=== PATIENT | female | born 1965 | race Caucasian/White ===

== ENCOUNTER 2020-01-13 06:26 | Day surgery (SDC) | payer MEDICARE ==
[2020-01-10 11:19] VITALS: BMI 38.5
[~2020-01-13 06:26] MED LIST: ACETAMINOPHEN TAB 500 MG TAB PO ONE; DEXAMETHASONE SOD PHOSPHATE 10 MG/ML 1 ML VIAL IV ONE; HEPARIN SODIUM,PORCINE 5,000 UNIT/ML 1 ML VIAL SQ ONE; HYDROmorphone 0.5 MG/0.5 ML SYRINGE IVP PRN; LACTATED RINGERS 1,000 ML IV SCH; LIDOCAINE 1% (10MG/ML) FOR IV START INTRADERMA PRN; ONDANSETRON 4 MG/2 ML VIAL IVP ONE
[2020-01-13] MEDS ORDERED: ACETAMINOPHEN TAB 500 MG TAB ONE (06:59)
[2020-01-13] MEDS ORDERED: HEPARIN SODIUM,PORCINE 5,000 UNIT/ML 1 ML VIAL ONE (07:00)
[2020-01-13] MEDS ORDERED: LIDOCAINE 1% (10MG/ML) FOR IV START INTRADERMA ONE (07:03)
[2020-01-13] MEDS ORDERED: SUCCINYLCHOLINE CHLORIDE 100 MG/5 ML SYR IV ONE (07:58)
[2020-01-13] MEDS ORDERED: fentaNYL (PF) 50 MCG/ML 2 ML AMP ONE (07:58)
[2020-01-13] MEDS ORDERED: PROPOFOL 10 MG/ML 20 ML VIAL IV ONE (07:58)
[2020-01-13] MEDS ORDERED: MIDAZOLAM 2 MG/2 ML VIAL ONE (07:58)
[2020-01-13] MEDS ORDERED: LIDOCAINE 1% INJ 10MG/ML (20 ML MDV) ONE (07:58)
--- NOTE | 2020-01-13 08:00 | P.HPADDEND ---
H&P Addendum H&P Addendum Date: 01/13/20 Please refer to recent H&P from the office. I was contacted last week that nephrology has seen the patient and wanted us to proceed with peritoneal dialysis catheter insertion as soon as possible. Patient remains relatively asymptomatic. No changes to the recent history and physical. We'll proceed wi th peritoneal dialysis catheter insertion. Risks reviewed once again. Patient and family understand and wish to proceed.
[2020-01-13] MEDS ORDERED: BUPIVACAINE (PF) 0.25% 30 ML VIAL SQ ONE (08:21)
[2020-01-13] MEDS ORDERED: NALOXONE 0.4 MG/ML 1 ML VIAL IV PRN (09:07)
[2020-01-13] MEDS ORDERED: HYDROcodone/APAP 5-325MG 1 EACH TAB PO PRN (09:07)
--- NOTE | 2020-01-13 09:09 | P.OP ---
Date of Procedure: 01/13/20 Procedure(s) Performed: PREOPERATIVE DIAGNOSIS: Renal failure POSTOPERATIVE DIAGNOSIS: Same PROCEDURE: Peritoneal dialysis catheter insertion SURGEON: Lizbet EBL: Minimal ANESTHESIA: Sedation plus local COMPLICATIONS: None OPERATIVE PROCEDURE: The patient was placed in the operative table in the supine position. His abdomen was prepped and draped in usual sterile fashion. A small vertical incision was made in the right periumbilical location. Dissection down through the subcutaneous tissues took place using electrocautery. The anterior rectus was divided vertically using the scalpel. The rectus was bluntly. The posterior rectus was visualized. An 0 Vicryl pursestring was placed. A small opening in the posterior rectus fascia and peritoneum took place using a Metzenbaum scissors. There were no adhesions to the suture that was placed. The pigtail catheter was advanced into the pelvis over a stylette. No resistance was met. The inner cuff was secured to the fascia using the 0 Vicryl pursestring that was placed. The catheter was tunneled to an exit site in the right lateral lower quadrant. The catheter was connected to the 1 L bag of saline and approximated 800 mL of saline was easily introduced into the peritoneal cavity. The fluid was then allowed to evacuate. The majority of the fluid was returned. The anterior rectus fascia was then reapproximated using a running 0 Vicryl stitch. The subcutaneous tissues reprepped using 3-0 Vicryl sutures and the skin using 4-0 Monocryl sutures. The outpatient dialysis adapter was applied to the end of the catheter. A sterile dressings then applied after Steri-Strips were placed over the incision. DISPOSITION: Stable to recovery room
[2020-01-13 09:23] VITALS: TEMP 97.1
[2020-01-13 10:30] VITALS: RESP 20
[2020-01-13 11:41] VITALS: BP 117/78; PULSE 95
== END 2020-01-13 11:30 | disposition home or self-care (01) ==
LOC: OR 06:26 → EEVIPCON 07:45 → OR 11:30
PROVIDERS: ATTEND Surgery
DX: I12.0 Hypertensive chronic kidney disease with stage 5 chronic kidney disease or end stage renal disease (principal); N18.6 End stage renal disease; F81.9 Developmental disorder of scholastic skills, unspecified; E21.3 Hyperparathyroidism, unspecified; D64.9 Anemia, unspecified; E78.5 Hyperlipidemia, unspecified; E07.9 Disorder of thyroid, unspecified; M10.9 Gout, unspecified; E66.9 Obesity, unspecified; Z68.38 Body mass index [BMI] 38.0-38.9, adult; Z79.899 Other long term (current) drug therapy; Z79.890 Hormone replacement therapy; Z98.890 Other specified postprocedural states; Z83.49 Family history of other endocrine, nutritional and metabolic diseases; Z83.438 Family history of other disorder of lipoprotein metabolism and other lipidemia; Z81.8 Family history of other mental and behavioral disorders; Z82.49 Family history of ischemic heart disease and other diseases of the circulatory system; Z82.62 Family history of osteoporosis; Z84.1 Family history of disorders of kidney and ureter; Z80.0 Family history of malignant neoplasm of digestive organs
CPT/HCPCS: 49421; C1752; J2250; J1644; J1100; J0690; J2405; J2001; J3010; J0330; J2704

== ENCOUNTER → 2020-09-05 | Outpatient (CLI) | payer MEDICARE ==
[2020-09-05 14:54] LABS: Basophils # (A) 0.1 k/uL (0-0.2); Basophils % (A) 1 %; Eosinophils # (A) 0.4 k/uL (0-0.7); Eosinophils % (A) 3 %; HGB 10.7 gm/dL (11.4-16.0); Lymphocytes # (A) 1.4 k/uL (1.0-4.8); Lymphocytes % (A) 13 %; MCH 31.3 pg (25.0-35.0); MCHC 30.7 g/dL (31.0-37.0); MCV 102.1 fL (80.0-100.0); Macrocytosis Slight; Mean Platelet Volume 7.6; Monocytes # (A) 0.6 k/uL (0-1.0); Monocytes % (A) 5 %; Neutrophils # (A) 8.2 k/uL (1.3-7.7); Neutrophils % (A) 75 %; Platelet Count 391 k/uL (150-450); RBC 3.43 m/uL (3.80-5.40); RDW 14.4 % (11.5-15.5); WBC 10.9 k/uL (3.8-10.6)
[2020-09-05 14:59] LABS: Potassium 4.5 mmol/L (3.5-5.1)
[2020-09-05 15:00] LABS: INR 0.9 (<1.2); Prothrombin Time 9.7 sec (9.0-12.0)
== END | disposition home or self-care (01) ==
LOC: LABWHC1 13:38
PROVIDERS: ATTEND Orthopaedic Surgery
DX: Z01.812 Encounter for preprocedural laboratory examination (principal); M17.12 Unilateral primary osteoarthritis, left knee; R94.31 Abnormal electrocardiogram [ECG] [EKG]
CPT/HCPCS: 80051; 85025; 85610; 87070; 93005

== ENCOUNTER 2020-09-25 08:33 | Inpatient (IN) | payer MEDICARE ==
[2020-09-13 09:49] VITALS: BMI 37.0
--- NOTE | 2020-09-24 09:25 | HP ---
HISTORY AND PHYSICAL CHIEF COMPLAINT: Left knee pain. HISTORY OF PRESENT ILLNESS: The patient is a 55-year-old female on disability, who presents with progressive left knee pain, worsening over the past year. She notes anterior and medial pain, worse with weightbearing activities. She notes it significantly limits her function and activities. She has had previous injections in addition to use of Voltaren gel without much relief. She notes it is significantly limits her. PAST MEDICAL HISTORY: Significant for gout, hypercholesterolemia, hypertension, hypothyroidism, and in addition to renal disease currently on peritoneal dialysis. PAST SURGICAL HISTORY: Negative. CURRENT MEDICATIONS: 1. Allopurinol. 2. Iron. 3. Lasix. 4. Levothyroxine. 5. Sevelamer. 6. Simvastatin. ALLERGIES: She has allergies to LISINOPRIL. FAMILY HISTORY: Negative. SOCIAL HISTORY: Negative for current tobacco or alcohol use. REVIEW OF SYSTEMS: Sixteen-point review of systems otherwise reviewed and is noncontributory. PHYSICAL EXAMINATION: On examination, patient is approximately 5 feet tall, 185 pounds of endomorphic habitus. HEENT exam is nonfocal. Neck is supple. She has painless passive motion of her left hip. Straight leg raise is negative. Active motion left knee -12 to 120 degrees of flexion. She has a moderate effusion. She is tender about the medial joint line. Collaterals are stable, Farrah is negative, Odalys's is equivocal. She has genu varum alignment. Her distal neurovascular exam appears intact in the left lower extremity. Weightbearing notch, lateral Merchant views of left knee obtained in the office show severe medial and patellofemoral compartment narrowing with subchondral sclerosis and [id number] changes. IMPRESSION: 1. Left knee severe medial and patellofemoral compartment osteoarthrosis. 2. End-stage renal disease on peritoneal dialysis. 3. History of gout. 4. Hypertension. RECOMMENDATIONS: I talked to the patient at length regarding her condition and treatment options. At this point, she is quite limited because of pain related to her osteoarthrosis despite previous conservative measures. After thorough discussion of her options, she opts to proceed with surgery. We will plan to proceed with left total knee arthroplasty. She did undergo preoperative clearance by her coordinate measuring equipment operator. MMODL / IJN: [id number] /
[~2020-09-25 08:33] MED LIST changes: -ACETAMINOPHEN TAB 500 MG TAB PO ONE; +ACETAMINOPHEN TAB 500 MG TAB PO PRN; -DEXAMETHASONE SOD PHOSPHATE 10 MG/ML 1 ML VIAL IV ONE; +DEXAMETHASONE SOD PHOSPHATE 4 MG/ML 1 ML VIAL IV ONE; -HEPARIN SODIUM,PORCINE 5,000 UNIT/ML 1 ML VIAL SQ ONE; -HYDROmorphone 0.5 MG/0.5 ML SYRINGE IVP PRN; -LACTATED RINGERS 1,000 ML IV SCH; -LIDOCAINE 1% (10MG/ML) FOR IV START INTRADERMA PRN; +MELOXICAM 7.5 MG TAB PO PRN; +MIDAZOLAM 2 MG/2 ML VIAL IV PRN; +SCOPOLAMINE 1.5MG/72HR PATCH TRANSDERM ONE; +TRANEXAMIC ACID 1,000 MG in SODIUM CHLORIDE 0.9% 100 ML IVPB PRN
[2020-09-25] MEDS ORDERED: LIDOCAINE 1% (10MG/ML) FOR IV START INTRADERMA ONE (09:42)
[2020-09-25] MEDS ORDERED: SODIUM CHLORIDE 0.9% 1,000 ML IV ONE (09:43)
[2020-09-25] MEDS ORDERED: MIDAZOLAM 2 MG/2 ML VIAL IV ONE (09:57)
[2020-09-25] MEDS ORDERED: fentaNYL (PF) 50 MCG/ML 2 ML AMP IV ONE (09:57)
[2020-09-25 10:33] LABS: Calcium 9.8 mg/dL (8.4-10.2); Potassium 4.7 mmol/L (3.5-5.1)
[2020-09-25] MEDS ORDERED: GLYCOPYRROLATE 0.2 MG/ML 2 ML VIAL ONE (10:33)
[2020-09-25] MEDS ORDERED: diphenhydrAMINE 50 MG/ML 1 ML VIAL ONE (10:33)
[2020-09-25] MEDS ORDERED: SODIUM CHLORIDE 0.9% 100 ML BAG ONE (10:33)
[2020-09-25] MEDS ORDERED: MIDAZOLAM 2 MG/2 ML VIAL ONE (10:33)
[2020-09-25] MEDS ORDERED: PROPOFOL 10 MG/ML 20 ML VIAL IV ONE (10:33)
[2020-09-25] MEDS ORDERED: TRANEXAMIC ACID 1,000 MG/10 ML VIAL ONE (10:33)
[2020-09-25] MEDS ORDERED: fentaNYL (PF) 50 MCG/ML 2 ML AMP ONE (10:33)
[2020-09-25] MEDS ORDERED: ROPIVACAINE 5 MG/ML 30 ML VIAL ONE (10:33)
[2020-09-25] MEDS ORDERED: NALOXONE 0.4 MG/ML 1 ML VIAL IV PRN (12:15)
--- NOTE | 2020-09-25 12:42 | P.OP ---
Date of Procedure: 09/25/20 Preoperative Diagnosis: Left knee severe tricompartmental osteoarthrosis Postoperative Diagnosis: Same Procedure(s) Performed: Left total knee arthroplastycementedposterior stabilized Implants: Depuy Attune size 4 cemented femoral component, size 3 cemented tibial component, 9 mm articular surface, 32 mm cemented patellar component. This is a posterior stabilized implant. Anesthesia: regional, spinal Surgeon: Vega Sewell Soap Worker #1: Brandon Fernandez Estimated Blood Loss (ml): 50 Pathology: other Condition: stable Disposition: PACU Indications for Procedure: The patient's a 55-year-old female who presents with progressive left knee pain secondary to osteoarthrosis despite attempted conservative measures. A discussion of the risks and benefits of operative intervention versus continued conservative measures was made with patient and her family. They opted to proceed with surgery. Operative risks to include infection, neurovascular injury, development of blood clots, possible component loosening/failure and need for subsequent procedures was discussed. Informed consent was obtained. Operative Findings: As below Description of Procedure: The patient was brought to the operating room, and after induction of spinal anesthesia the left lower extremity was prepped and draped in a normal fashion. The tourniquet was inflated to 270 mm marker. A longitudinal incision extending 3 finger breaths above the superior pole of patella extending to the medial aspect the tibial tubercle was then made. The skin and subcutaneous tissues were divided sharply. Electrocautery was used for hemostasis. A medial parapatellar arthrotomy was performed. The medial soft tissues to include the superficial and deep portions of the medial collateral ligament were elevated subperiosteally. The patella was everted. A portion of the retropatellar fat pad was excised sharply. The anterior cruciate ligament was sacrificed. Blunt retractors were placed. A starting hole was made in the distal femur 1 cm anterior to the posterior cruciate ligament origin. An intramedullary femoral guide was then inserted planning on 5 valgus distal cut with 9 mm distal rese ction. The cutting block was pinned in place. The distal cut was then made. The posterior referencing sizing guide was utilized. I felt size 4 was most appropriate. 3 of external rotation was built into the system and verified off the trans-epicondylar axis and the posterior condyles. The cutting block was pinned in place. The anterior, posterior, and chamfer cuts then made. Bone fragments were removed. The intercondylar guide was placed and the notch cut was made with a sagittal saw. The bone block was removed in one fragment. The trial component was then placed. There is good anterior to posterior and medial to lateral fit. The distal peg holes were drilled. The trial component was removed. Attention was then paid towards preparing the proximal femur. An extra medullary guide was utilized in line with the tibial shaft and second metatarsal distally. I planned on 2 mm resection from the medial compartment. The cutting block was pinned in place. The proximal tibial cut was then made. The bone was removed in one fragment. The remnants of the medial and lateral menisci were excised at the capsular junction with electrocautery. The tibia sized most appropriately at size 3. The trial femoral and tibial components were placed along with a 9 mm articular surface. I was able to obtain full flexion and extension with internal and external rotation. After several flexion and extension cycles, the tibial rotation was marked with electrocautery line with the medial one third of the tibial tubercle. Attention was then paid towards preparing the patella. A patella reamer was utilized taking stem to 14 mm of bone stock. A good flush cut was made. The patella sized most appropriately 32 mm. The peg holes were drilled. The trial components placed. I had good patellofemoral tracking with no hands technique. The trial components were then removed. The tibia was prepared in the appropriate rotation with appropriate drill and keel punch. The posterior osteophytes were removed with a curved osteotome. The flexion and extension gaps were checked and felt to be symmetric at 9 mm. A trial components were then removed. The posterior soft tissues were injected with ropivacaine. The bony surfaces were prepared with pulsatile lavage and dried. The tibial component was then cemented place was fully seated. Excess cement was removed. The femoral component cemented place and was fully seated. Excess cement was removed. The trial 9 mm articular surface was placed and the knee was put in full extension. The patella component was cemented place. After the cement had sufficiently hardened, the knee was again taken through a range of motion. Again I was able to obtain full flexion and extension with varus and valgus stress. The trial 9 mm articular surface was removed and the final one inserted. This was fully seated. Care was taken to avoid any soft tissue interposition. Pulsatile lavage was again utilized. The medial parapatellar arthrotomy was closed with #2 Ethibond suture. The tourniquet was deflated with approximately 70 minutes total tourniquet time. Final hemostasis was obtained with the cautery. There was minimal bleeding therefore a deep drain was not placed. The subcutaneous tissues were reapproximated with interrupted 2-0 Vicryl sutures. The skin was reapproximated with 3-0 subcuticular strata fix suture. Skin tape and adhesive was applied. A sterile dressing was applied. The patient was awoken from sedation and transferred to recovery room in good condition. Blood loss was estimated at 50 mL. No complications were incurred. Sponge and needle counts were correct at the end of the case. Brandon DRUMMOND assisted during the major components of this case to include exposure, bone resection, implantation, and closure.
[2020-09-25] MEDS ORDERED: diphenhydrAMINE 50 MG/ML 1 ML VIAL IVP ONE (13:00)
[2020-09-25] MEDS ORDERED: ROPIVACAINE 0.2%-NS ON-Q PUMP 2 MG/ML EACH MISCELLANE ONE ×2 (13:04→13:05)
[2020-09-25] MEDS: HYDROmorphone 0.5 MG/0.5 ML SYRINGE IVP PRN ×3 (13:04→14:30)
[2020-09-25] MEDS ORDERED: ROPIVACAINE 0.2%-NS ON-Q PUMP 1,090 MG, EMPTY PAIN BALL 1 EACH MISCELLANE PRN (13:20)
--- NOTE | 2020-09-25 13:37 | XR ---
EXAMINATION TYPE: XR knee limited LT DATE OF EXAM: 09/25/2020 COMPARISON: NONE TECHNIQUE: Two views submitted HISTORY: Post op FINDINGS: There is a prosthetic knee in near anatomic alignment. There is soft tissue edema and emphysema. IMPRESSION: 1. Postoperative change. Appears in near-anatomic alignment
--- NOTE | 2020-09-25 14:22 | P.ANPRN ---
Procedure Note - Anesthesia - Nerve Block Performed Left Adductor Canal Infusion Time Out Performed: Yes (957) Date of Procedure: 09/25/20 Procedure Start Time: 09:58 Procedure Stop Time: 10:05 Location of Patient: PreOp Indication: Acute Post-Operative Pain, Requested by Surgeon Specifically requested for management of pain by DrGlenys: Vega Sewell Sedation Type: Sedate with meaningful contact maintained Preparation: Sterile Prep Position: Supine Catheter Depth at Skin (cm): 8 Catheter: Indwelling Needle Types: Pajunk Needle Gauge: 21 Ultrasound used to visualize needle placement: Yes Ultrasound used to observe medication spread: Yes Injectate: 0.5% Ropivacaine (see comment for volume) (20cc) Blood Aspirated: No Pain Paresthesia on Injection Noted: No Resistance on Injection: Normal Image Stored and Saved: Yes Events: Uneventful and Well Tolerated Left iPack Single Time Out Performed: Yes (957) Date of Procedure: 09/25/20 Procedure Start Time: 10:06 Procedure Stop Time: 10:10 Location of Patient: PreOp Indication: Acute Post-Operative Pain, Requested by Surgeon Specifically requested for management of pain by DrGlenys: Vega Sewell Sedation Type: Sedate with meaningful contact maintained Preparation: Sterile Prep Position: Supine Catheter Depth at Skin (cm): 8 Catheter: Indwelling Needle Types: Pajunk Needle Gauge: 21 Ultrasound used to visualize needle placement: Yes Ultrasound used to observe medication spread: Yes Injectate: 0.5% Ropivacaine (see comment for volume) (20cc) Blood Aspirated: No Pain Paresthesia on Injection Noted: No Resistance on Injection: Normal Image Stored and Saved: Yes Events: Uneventful and Well Tolerated
[2020-09-25] MEDS: HYDROcodone/APAP 7.5-325MG 1 EACH TAB PO PRN (15:34)
[2020-09-25] MEDS: LACTATED RINGERS 1,000 ML IV SCH (18:45)
[2020-09-25] MEDS: SENNOSIDES-DOCUSATE SODIUM 1 EACH TAB PO SCH (20:02)
[2020-09-25] MEDS: DIALYSIS (PERIT 1.5%) 2,000 ML 30 G/2,000 ML BAG INTRAPERIT SCH ×2 (20:33→23:52)
[2020-09-26] MEDS: DIALYSIS (PERIT 1.5%) 2,000 ML 30 G/2,000 ML BAG INTRAPERIT SCH ×4 (00:01→20:29)
[2020-09-26] MEDS: LACTATED RINGERS 1,000 ML IV SCH (01:47)
[2020-09-26 07:07] LABS: Basophils % (A) 0 %; Eosinophils % (A) 0 %; HCT 29.4 % (34.0-46.0); HGB 9.8 gm/dL (11.4-16.0); Lymphocytes # (A) 0.8 k/uL (1.0-4.8); Lymphocytes % (A) 6 %; MCH 34.2 pg (25.0-35.0); MCHC 33.3 g/dL (31.0-37.0); MCV 102.9 fL (80.0-100.0); Macrocytosis Slight; Mean Platelet Volume 7.9; Monocytes # (A) 0.8 k/uL (0-1.0); Monocytes % (A) 5 %; Neutrophils # (A) 13.1 k/uL (1.3-7.7); Neutrophils % (A) 88 %; Platelet Count 389 k/uL (150-450); RBC 2.86 m/uL (3.80-5.40); RDW 14.6 % (11.5-15.5); WBC 14.9 k/uL (3.8-10.6)
--- NOTE | 2020-09-26 07:37 | P.PN ---
Progress Note - Text Progress Note Date: 09/26/20 (044) Anesthesiology Postop day 1 status post total knee arthroplasty with adductor canal catheter. Patient doing well. Pain is tolerable per patient. Gross strength intact in lower extremity. Afebrile. Denies alterations in sensorium. Catheter site intact. Heart regular rate Lungs nonlabored Abdomen nondistended Assessment: Postop day 1 status post total knee arthroplasty with adductor canal catheter Plan: All questions answered. Maintain catheter 2 more days with patient removal at home. Instructions were given at discharge.
[2020-09-26] MEDS: HYDROcodone/APAP 7.5-325MG 1 EACH TAB PO PRN ×2 (08:36→23:01)
[2020-09-26] MEDS: RIVAROXABAN 10 MG TAB PO SCH (08:37)
--- NOTE | 2020-09-26 12:01 | P.PN ---
Subjective Progress Note Date: 09/26/20 Principal diagnosis: Left knee osteoarthritis Upon entering room sporting, patient was lying in chair with legs elevated. Patient says she is in some pain right over the left knee were the incision was made. However, she says she is doing pretty good. When asked, patient says physical therapy was up with her this morning. She points to the walker when I asked her if she uses a walker. She said she did not go into the hallway or up and down the stairs today with physical therapy. She said she did get somebody has been passing gas. Patient denies any shortness of breath, chest pain, fever, nausea, vomiting, vision changes. Objective - Vital Signs Vital signs: Vital Signs Temp 98.8 F 09/26/20 08:00 Pulse 121 H 09/26/20 08:00 Resp 20 09/26/20 08:00 BP 129/75 09/26/20 08:00 Pulse Ox 95 09/26/20 08:00 Intake & Output 09/25/20 09/26/20 09/26/20 18:59 06:59 18:59 Intake Total 1970 Output Total 50 Balance 1920 Weight 88.8 kg Intake: IV 950 Intake, IV Titration 1020 Amount ceFAZolin 2 gm In Sodium 1020 Chloride 0.9% 50 ml @ 100 mls/hr IVPB ONCE PRN Rx# :[id number] Output: Estimated Blood Loss 50 Other: Voiding Method CAPD CAPD # Voids 1 # Bowel Movements 1 - Exam : Incision is clean, dry, and intact. The exofin fusion tape is in good condition. There is minimal soft tissue swelling and ecchymosis surrounding the medial and lateral aspects of the incision. Calf is soft, no tenderness with palpation. Plantar flexion, dorsiflexion, EHL, FHL are intact. Sensory exam to light touch throughout the extremity is intact, dorsal pedis pulses 2+. - Labs CBC & Chem 7: 09/26/20 05:43 09/25/20 09:42 Labs: Abnormal Lab Results - Last 24 Hours (Table) 09/26/20 Range/Units 05:43 WBC 14.9 H (3.8-10.6) k/uL RBC 2.86 L (3.80-5.40) m/uL Hgb 9.8 L (11.4-16.0) gm/dL Hct 29.4 L (34.0-46.0) % MCV 102.9 H (80.0-100.0) fL Neutrophils # 13.1 H (1.3-7.7) k/uL Lymphocytes # 0.8 L (1.0-4.8) k/uL Assessment and Plan Assessment: Left knee osteoarthritis Plan: 1. Left knee osteoarthritis - left total knee arthroplasty performed yesterday, 09/25/2020. Patient stable at this time. 2. Pain management - stable at this time. Continue Pierre 3. GI prophylaxis/DVT prophylaxis - continue senna while in hospital. Continue Xarelto while in hospital. 4. Encourage incentive spirometer use 5. PT/OT - up and out of bed 4 times a day. Ambulate with walker and assistance. Goal to use the stairs tomorrow morning 6. Discharge planning - we will discuss with patient's mom later today when she gets here about potential for patient going to subacute rehab for initial phase of recovery. Time with Patient: Less than 30
--- NOTE | 2020-09-26 13:42 | P.NPCON ---
History of Present Illness - Reason for Consult end stage renal disease - History of Present Illness Reason for consultation: End-stage renal disease History of present illness: Patient is a 55-year-old female seen in renal consultation for end-stage renal disease. She is maintained on peritoneal dialysis. Patient has history of arthritis and underwent left knee arthroplasty yesterday. Currently sitting up in chair. Denies chest pain or shortness of breath. No issues with peritoneal dialysis. No vomiting or diarrhea. Blood pressure stable. Oral intake is good. No fever or chills. Hemodynamically stable. Vital signs are stable. General: The patient appeared well nourished and normally developed. HEENT: Head exam is unremarkable. Neck is without jugular venous distension. LUNGS: Breath sounds decreased. HEART: Rate and Rhythm are regular. ABDOMEN: Soft, no distention noted. EXTREMITITES: No edema. Past Medical History Past Medical History: Hyperlipidemia, Renal Disease, Thyroid Disorder Additional Past Medical History / Comment(s): developmentally delayed, nightly peritoneal dialysis, has deep palate, some speech issues, swelling legs and ankles, hx of fx rt leg, History of Any Multi-Drug Resistant Organisms: None Reported Additional Past Surgical History / Comment(s): septoplasty, tubes in ear, oral surgery Past Anesthesia/Blood Transfusion Reactions: Family History of Problems w/ Anesthesia Additional Past Anesthesia/Blood Transfusion Reaction / Comment(s): mom-ponv Additional Psychological History / Comment(s): mother reports Isis as having high function disabilty with limited understanding of presented information - mom Yamel is legal guardian Smoking Status: Never smoker Past Alcohol Use History: None Reported Past Drug Use History: None Reported - Past Family History Father Family Medical History: Cancer Medications and Allergies Home Medications Medication Instructions Recorded Confirmed Type Levothyroxine Sodium [Synthroid] 112 mcg PO DAILY 01/10/20 09/25/20 History Sevelamer Carbonate 800 mg PO BID-W/MEALS 01/10/20 09/25/20 History Simvastatin [Zocor] 20 mg PO HS 01/10/20 09/25/20 History Ferrous Sulfate [Feosol] 325 mg PO DAILY 09/13/20 09/25/20 History Furosemide [Lasix] 80 mg PO BID 09/13/20 09/25/20 History Potassium Chloride [Klor-Con 10] 10 meq PO DAILY 09/13/20 09/25/20 History Allergies Allergy/AdvReac Type Severity Reaction Status Date / Time lisinopril Allergy Unknown Verified 09/25/20 09:01 Physical Exam Vitals: Vital Signs Temp Pulse Pulse Resp BP BP Pulse Ox 09/26/20 08:00 98.8 F 121 H 20 129/75 95 09/26/20 02:29 98.4 F 110 H 18 120/76 95 09/25/20 20:34 97.6 F 116 H 19 108/76 92 L 09/25/20 19:17 97.6 F 116 H 19 108/76 92 L 09/25/20 18:00 97.9 F 63 18 124/72 92 L 09/25/20 16:24 16 09/25/20 15:15 97.9 F 119 H 16 132/83 96 09/25/20 14:25 114 H 18 118/56 100 09/25/20 14:00 102 H 18 116/55 99 Intake and Output 09/25/20 09/26/20 09/26/20 22:59 06:59 14:59 Intake Total 1020 Balance 1020 Intake: Intake, IV Titration 1020 Amount ceFAZolin 2 gm In Sodium 1020 Chloride 0.9% 50 ml @ 100 mls/hr IVPB ONCE PRN Rx# :[id number] Other: Voiding Method CAPD CAPD # Voids 1 # Bowel Movements 1 Results - Lab Results Most recent lab results Calcium 9.8 mg/dL (8.4-10.2) 09/25/20 09:42 09/26/20 05:43 09/25/20 09:42 Assessment and Plan Plan: Assessment: 1. End-stage renal disease maintained on peritoneal dialysis. 2. Status post left knee arthroplasty September 25. 3. Anemia of chronic kidney disease. 4. Chronic kidney disease mineral bone disease. Plan: Maintain 2 L exchanges every 6 hours with 1.5% dextrose solution. Resume Renvela with meals. Check iron studies. Add Jaun. Thank you for the consultation. I will continue to follow the patient with you during her hospital stay.
[2020-09-26] MEDS ORDERED: DARBEPOETIN ALFA 40 MCG/0.4 ML SYRINGE SQ SCH (13:45)
--- NOTE | 2020-09-26 15:34 | P.CONS ---
History of Present Illness - Chief Complaint Walking difficulty - History of Present Illness I had the opportunity to see patient for inpatient rehab consultation with regard to walking difficulty. Patient admitted to [facility] September 25 for elective left TKA which was performed by Dr. Foster. Seen by nephrology for known end- stage renal failure requiring peritoneal dialysis. Has started therapy. PT reports two-person moderate assistance for bed mobility and two-person assistance to stand and gait 3 feet with roller walker. OT reports moderate assistance for upper dressing in 2 person moderate assist for lower dressing, bathing, toileting and functional mobility and transfers. Previous functional history as elicited patient: 55-year-old right-handed white female single lives and 2 floor home with mom and nephew. Mom does the laundry and driving and nephew does the cooking and driving. Patient independent with sitdown shower and gait with roller walker. PCP Dr. Vonnie Gusman [facility]. Denies tobacco or alcohol. Appears to have a learning disability. Review of Systems Review of systems: ENT: Denies sneezes or discharge. Eyes: Denies discharge or photophobia. Cardiac: Denies chest pain or palpitation. Pulmonary: Denies cough or shortness of breath. Breast: Denies discharge or lumps. Gastrointestinal: Denies nausea, emesis, constipation, diarrhea. Genitourinary: Denies discharge or frequency. Musculoskeletal: Denies muscle or bone aches but there are some discomfort with movement of left leg at left knee/distal thigh. Neurologic: Denies motor or sensory change. Endocrine: Denies shakes or sweats. Oncology: Denies cancers. Dermatologic: Denies rash, itching, pruritus. ALLERGY/immunology: Denies sneezes, rashes. Past Medical History Past Medical History: Hyperlipidemia, Renal Disease, Thyroid Disorder Additional Past Medical History / Comment(s): developmentally delayed, nightly peritoneal dialysis, has deep palate, some speech issues, swelling legs and ankles, hx of fx rt leg, History of Any Multi-Drug Resistant Organisms: None Reported Additional Past Surgical History / Comment(s): septoplasty, tubes in ear, oral surgery Past Anesthesia/Blood Transfusion Reactions: Family History of Problems w/ A nesthesia Additional Past Anesthesia/Blood Transfusion Reaction / Comm: mom-ponv Additional Psychological History / Comment(s): mother reports Isis as having high function disabilty with limited understanding of presented information - stacey Montesinos is legal guardian Smoking Status: Never smoker Past Alcohol Use History: None Reported Past Drug Use History: None Reported - Past Family History Father Family Medical History: Cancer Medications and Allergies Home Medications Medication Instructions Recorded Confirmed Type Levothyroxine Sodium [Synthroid] 112 mcg PO DAILY 01/10/20 09/25/20 History Sevelamer Carbonate 800 mg PO BID-W/MEALS 01/10/20 09/25/20 History Simvastatin [Zocor] 20 mg PO HS 01/10/20 09/25/20 History Ferrous Sulfate [Feosol] 325 mg PO DAILY 09/13/20 09/25/20 History Furosemide [Lasix] 80 mg PO BID 09/13/20 09/25/20 History Potassium Chloride [Klor-Con 10] 10 meq PO DAILY 09/13/20 09/25/20 History Allergies Allergy/AdvReac Type Severity Reaction Status Date / Time lisinopril Allergy Unknown Verified 09/25/20 09:01 Physical Exam Vitals: Vital Signs Temp Pulse Pulse Resp BP BP Pulse Ox 09/26/20 14:00 98.7 F 114 H 19 129/83 94 L 09/26/20 08:00 98.8 F 121 H 20 129/75 95 09/26/20 02:29 98.4 F 110 H 18 120/76 95 09/25/20 20:34 97.6 F 116 H 19 108/76 92 L 09/25/20 19:17 97.6 F 116 H 19 108/76 92 L 09/25/20 18:00 97.9 F 63 18 124/72 92 L 09/25/20 16:24 16 Intake and Output 09/26/20 09/26/20 09/26/20 06:59 14:59 22:59 Other: Voiding Method CAPD # Voids 1 Skin: Good color, texture, turgor. General: Medium build and comfortable appearance. Head: Normocephalic, atraumatic. Eyes: Symmetric. Pupils equal round. Ears: Symmetric. Hearing within normal limits. Mouth: Clear. Neck: Supple. Carotid without bruit. Cardiac: Regular rate and rhythm. Lungs: Clear anteriorly and posteriorly. Abdomen: Soft active nontender. Extremities: Normal tone. Neurological: Mental status: Alert, cooperative, pleasant. Appears to have limited cognition or learning disability. Cranial nerves: Symmetric facial tone and trapezius. Motor: Normal strength and isolation both arms and right leg. Left leg demonstrates active and ankle and toes but unable to elevate due to discomfort in left thigh/knee. Sensation: Intact throughout. DTRs: Symmetric and equal throughout. Mobility: Unable to sit or stand patient issues receiving peroneal dialysis. Results CBC & Chem 7: 09/26/20 05:43 09/25/20 09:42 Labs: Abnormal Lab Results - Last 24 Hours (Table) 09/26/20 Range/Units 05:43 WBC 14.9 H (3.8-10.6) k/uL RBC 2.86 L (3.80-5.40) m/uL Hgb 9.8 L (11.4-16.0) gm/dL Hct 29.4 L (34.0-46.0) % MCV 102.9 H (80.0-100.0) fL Neutrophils # 13.1 H (1.3-7.7) k/uL Lymphocytes # 0.8 L (1.0-4.8) k/uL Assessment and Plan (1) Osteoarthritis of left knee Current Visit: Yes Status: Acute Code(s): M17.12 - UNILATERAL PRIMARY O STEOARTHRITIS, LEFT KNEE SNOMED Code(s): 214071782156642 (2) Status post total left knee replacement Current Visit: Yes Status: Acute Code(s): Z96.652 - PRESENCE OF LEFT ARTIFI CIAL KNEE JOINT SNOMED Code(s): 4859359624095 Plan: Impression: 1. Walking only. 2. Elysia arthritis and folate left knee requiring TKA. 3. End-stage renal failure requiring. Dialysis. 4. Hypothyroid. 5. Dyslipidemia. Comments and plan: At this time PT and OT are ongoing. Definite safety concerns noted. Would consider for inpatient rehab but unsure knee replacement is adequate diagnosis for insurance criteria for inpatient rehab. Must investigate.
[2020-09-26] MEDS: SEVELAMER 800 MG TAB PO SCH (17:44)
[2020-09-26] MEDS: SENNOSIDES-DOCUSATE SODIUM 1 EACH TAB PO SCH (19:59)
[2020-09-26 22:49] LABS: % Iron Saturation 16.86 (12.00-45.00)
[2020-09-26 22:56] LABS: Ferritin 215.9 ng/mL (10.0-291.0)
[2020-09-27] MEDS: DIALYSIS (PERIT 1.5%) 2,000 ML 30 G/2,000 ML BAG INTRAPERIT SCH ×4 (01:54→20:25)
[2020-09-27] MEDS: LACTATED RINGERS 1,000 ML IV SCH (02:35)
[2020-09-27] MEDS: RIVAROXABAN 10 MG TAB PO SCH (09:15)
[2020-09-27] MEDS: SEVELAMER 800 MG TAB PO SCH ×2 (09:16→17:16)
--- NOTE | 2020-09-27 10:07 | P.PN ---
Subjective Progress Note Date: 09/27/20 Principal diagnosis: Left knee osteoarthritis Upon entering room sporting, patient was lying in chair with legs elevated. Patient says she is in some pain right over the left knee were the incision was made. However, she says she is doing pretty good. When asked, patient says physical therapy was up with her this morning. She points to the walker when I asked her if she uses a walker. She said she did not go into the hallway or up and down the stairs today with physical therapy. She said she did get somebody has been passing gas. Patient denies any shortness of breath, chest pain, fever, nausea, vomiting, vision changes. Objective - Vital Signs Vital signs: Vital Signs Temp 98.6 F 09/27/20 07:12 Pulse 116 H 09/27/20 07:12 Resp 18 09/27/20 07:12 BP 148/91 09/27/20 07:12 Pulse Ox 93 L 09/27/20 07:12 Intake & Output 09/26/20 09/27/20 09/27/20 18:59 06:59 18:59 Other: Voiding Method CAPD CAPD # Voids 1 - Exam : Postoperative day #2 status post left total knee arthroplasty Incision is clean, dry, and intact. The exofin fusion tape is in good condition. There is minimal soft tissue swelling and ecchymosis surrounding the medial and lateral aspects of the incision. Calf is soft, no tenderness with palpation. Plantar flexion, dorsiflexion, EHL, FHL are intact. Sensory exam to light touch throughout the extremity is intact, dorsal pedis pulses 2+. - Labs CBC & Chem 7: 09/26/20 05:43 09/25/20 09:42 Labs: Abnormal Lab Results - Last 24 Hours (Table) 09/25/20 Range/Units 09:42 Iron 43 L (50-170) ug/dL Assessment and Plan Assessment: Left knee osteoarthritis Plan: 1. Left knee osteoarthritis - left total knee arthroplasty performed yesterday, 09/25/2020. Patient stable at this time. 2. Pain management - stable at this time. Continue [place] 3. GI prophylaxis/DVT prophylaxis - continue senna while in hospital. Continue Xarelto while in hospital. 4. Encourage incentive spirometer use 5. PT/OT - up and out of bed 4 times a day. Ambulate with walker and assistance. Goal to use the stairs 6. Discharge planning - at this time we are discussing the possibility for inpatient rehab. Patient is a difficult assist requiring 2 or 3 people when she ambulates with a walker. Time with Patient: Less than 30
--- NOTE | 2020-09-27 11:39 | P.PN ---
Subjective Patient is seen in follow-up for end-stage renal disease. She is maintained on peritoneal dialysis. No chest pain or shortness of breath. Hemodynamically stable. No problems with peritoneal dialysis. Vital signs are stable. General: The patient appeared well nourished and normally developed. HEENT: Head exam is unremarkable. Neck is without jugular venous distension. LUNGS: Breath sounds decreased. HEART: Rate and Rhythm are regular. ABDOMEN: Soft, no distention. EXTREMITITES: No edema. Objective - Vital Signs Vital signs: Vital Signs Temp 98.6 F 09/27/20 07:12 Pulse 116 H 09/27/20 07:12 Resp 18 09/27/20 07:12 BP 148/91 09/27/20 07:12 Pulse Ox 93 L 09/27/20 07:12 Intake & Output 09/26/20 09/27/20 09/27/20 18:59 06:59 18:59 Other: Voiding Method CAPD CAPD # Voids 1 - Labs CBC & Chem 7: 09/26/20 05:43 09/25/20 09:42 Labs: Abnormal Lab Results - Last 24 Hours (Table) 09/25/20 Range/Units 09:42 Iron 43 L (50-170) ug/dL Assessment and Plan Plan: Assessment: 1. End-stage renal disease maintained on peritoneal dialysis. 2. Status post left knee arthroplasty September 25. 3. Anemia of chronic kidney disease. Iron deficiency noted. On Aranesp. 4. Chronic kidney disease mineral bone disease. Maintained on Renvela. Plan: Maintain 2 L exchanges every 6 hours with 1.5% dextrose solution. Add IV iron.
[2020-09-27] MEDS: SODIUM FERRIC GLUCONAT-SUCROSE 125 MG in SODIUM CHLORIDE 0.9% 100 ML IVPB SCH (13:19)
--- NOTE | 2020-09-27 15:29 | CONS ---
CONSULTATION DATE OF SERVICE: 09/27/2020 REASON FOR CONSULTATION: Advice regarding hyperlipidemia and hypothyroidism and other medical issues, requested by Orthopedic Surgery. HISTORY OF PRESENT ILLNESS: This 55-year-old woman with a past medical history of hyperlipidemia, chronic kidney disease, history of hypothyroidism, developmentally delayed, on nightly peritoneal dialysis, being followed in the outpatient setting, was admitted after left total knee joint arthroplasty. The patient is making gradual progress and ECF rehab is being planned at this time; however, because of concerns about ECF, Dr. Lara from Nephrology recommended temporary hemodialysis to tide over the crisis. A dialysis catheter has been recommended. WBC is elevated to 14.9, hemoglobin is 9.8. UA is not available. There is no history of any fever, rigors or chills at this time. PAST MEDICAL HISTORY: History of renal disease, hyperlipidemia, hypothyroidism, developmental delay. MEDICATIONS: Medications prior to admission include Zocor, sevelamer, Klor-Con, Synthroid, Lasix, iron sulfate. Doses are reviewed. ALLERGIES: LISINOPRIL. FAMILY HISTORY: History of cancer, per chart. SOCIAL HISTORY: No history of smoking. No history of alcohol intake. Review of systems could not be taken because of the patient's baseline mental status. PHYSICAL EXAMINATION: Pulse is 120, blood pressure 119/66, respirations 16, temperature 98.3, pulse ox 96% on room air. HEENT: Conjunctivae normal. NECK: No jugular venous distention. CARDIOVASCULAR SYSTEM: S1, S2 muffled. RESPIRATORY SYSTEM: Breath sounds diminished at the bases. A few scattered rhonchi and crackles. ABDOMEN: Soft, non-tender. No mass palpable. LEGS: Status post left knee arthroplasty. NERVOUS SYSTEM: Higher functions as mentioned earlier. No obvious focal deficit at this time. SKIN: No ulcer, rash, bleeding. JOINTS: No active deforming arthropathy. LABS: WBC 14.9, hemoglobin 9.8. ASSESSMENT: 1. Status post left total knee arthroplasty. 2. Increased white count. 3. Anemia, macrocytic. 4. Chronic kidney disease, stage 4, on peritoneal dialysis. 5. Tachycardia. 6. History of hyperlipidemia. 7. History of hypothyroidism. 8. Developmental delay. 9. Nightly peritoneal dialysis. 10.History of degenerative joint disease. 11.History of septoplasty. 12.FULL CODE. RECOMMENDATIONS AND DISCUSSION: In this 55-year-old woman who presented with multiple complex medical issues, at this time I recommend to continue the current medications, continue with symptomatic treatment. I would also recommend a portable chest x-ray and as UA with micro to complete the workup. The patient also is tachycardic and also having elevated WBC. Possible infection needs to be ruled out. Will continue to monitor. Further recommendations to follow. Thank you, Dr. Sewell, for letting us participate in the care of this patient. MMODL / IJN: [id number] /
--- NOTE | 2020-09-27 15:40 | XR ---
EXAMINATION TYPE: XR chest 1V portable DATE OF EXAM: 09/27/2020 HISTORY: Shortness of breath. COMPARISON: None. TECHNIQUE: Single view of the chest is submitted. FINDINGS: Demonstrated are scattered senescent parenchymal change. Increased density right lower lobe may reflect atelectasis or developing infiltrate. Correlate clinic ally. The heart is stable. Hilar and mediastinal structures are within normal limits. Degenerative changes are seen of the dorsal spine. IMPRESSION: 1. Increased density right lower lobe may reflect atelectasis or developing infiltrate. Correlate cl inically.
[2020-09-27 15:45] LABS: ALT 7 U/L (4-34); AST 34 U/L (14-36); African American GFR (CKD) 15 (>60 ml/min/1.73 sqM); Albumin 3.4 g/dL (3.5-5.0); Albumin/Globulin Ratio 1.2; Alkaline Phosphatase 95 U/L (38-126); Anion Gap 12 mmol/L; Blood Urea Nitrogen 49 mg/dL (7-17); Calcium 9.4 mg/dL (8.4-10.2); Carbon Dioxide 22 mmol/L (22-30); Chloride 100 mmol/L (98-107); Globulin 2.8 g/dL; Glucose 174 mg/dL (74-99); Non-African American GFR(CKD) 13 (>60 ml/min/1.73 sqM); Sodium 134 mmol/L (137-145); Total Bilirubin 0.2 mg/dL (0.2-1.3); Total Protein 6.2 g/dL (6.3-8.2)
[2020-09-27] MEDS: LEVOTHYROXINE 112 MCG TAB PO SCH (17:16)
[2020-09-27] MEDS: FUROSEMIDE 80 MG TAB PO SCH (17:16)
[2020-09-27] MEDS: ATORVASTATIN 10 MG TAB PO SCH (20:00)
[2020-09-27] MEDS: SENNOSIDES-DOCUSATE SODIUM 1 EACH TAB PO SCH (20:00)
[2020-09-27 22:43] LABS: Appearance,Urine Clear (Clear); Bacteria,Urine Rare /hpf; Bilirubin,Urine Negative (Negative); Blood,Urine Small (Negative); Color,Urine Light Yellow; Glucose,Urine (UA) Trace (Negative); Ketones,Urine Negative (Negative); Leukocyte Esterase,Urine Negative (Negative); Mucus,Urine Rare /hpf; Nitrite,Urine Negative (Negative); PH, Urine 5.5 (5.0-8.0); Protein,Urine 2+ (Negative); RBC,Urine 2 /hpf (0-5); Specific Gravity,Urine 1.012 (1.001-1.035); Squamous Epithelial Cell,Urine <1 /hpf (0-4); Urobilinogen,Urine <2.0 mg/dL (<2.0); WBC,Urine 1 /hpf (0-5)
[2020-09-28] MEDS: DIALYSIS (PERIT 1.5%) 2,000 ML 30 G/2,000 ML BAG INTRAPERIT SCH ×4 (02:19→20:10)
[2020-09-28] MEDS: LACTATED RINGERS 1,000 ML IV SCH (02:24)
[2020-09-28] MEDS: LEVOTHYROXINE 112 MCG TAB PO SCH (05:38)
[2020-09-28] MEDS: FUROSEMIDE 80 MG TAB PO SCH ×2 (08:49→17:18)
[2020-09-28] MEDS: SEVELAMER 800 MG TAB PO SCH ×2 (08:49→17:18)
[2020-09-28] MEDS: RIVAROXABAN 10 MG TAB PO SCH ×2 (09:02→18:47)
[2020-09-28 09:13] LABS: HCT 30.4 % (37.2-46.3); HGB 9.3 g/dL (12.0-15.0); MCH 32.4 pg (27.0-32.0); MCHC 30.6 g/dL (32.0-37.0); MCV 105.9 fL (80.0-97.0); Mean Platelet Volume 10.7 fL (9.5-12.2); Platelet Count 346 X 10*3/uL (140-440); RBC 2.87 X 10*6/uL (4.10-5.20); RDW 15.2 % (11.5-14.5); WBC 10.76 X 10*3/uL (4.50-10.00)
[2020-09-28 09:44] LABS: Basophils # (A) 0.05 X 10*3/uL (0.00-0.10); Basophils % (A) 0.5 %; Eosinophils # (A) 0.17 X 10*3/uL (0.04-0.35); Eosinophils % (A) 1.6 %; Lymphocytes # (A) 1.24 X 10*3/uL (0.90-5.00); Lymphocytes % (A) 11.5 %; Macrocytosis (M) 2+; Monocytes # (A) 1.14 X 10*3/uL (0.20-1.00); Monocytes % (A) 10.6 %; Neutrophils # (A) 8.02 X 10*3/uL (1.80-7.70); Neutrophils % (A) 74.5 %
[2020-09-28] MEDS: SODIUM FERRIC GLUCONAT-SUCROSE 125 MG in SODIUM CHLORIDE 0.9% 100 ML IVPB SCH (11:03)
--- NOTE | 2020-09-28 11:29 | P.PN ---
Subjective Progress Note Date: 09/28/20 Principal diagnosis: Left knee osteoarthritis Upon entering room sporting, patient was lying in chair with legs elevated. Patient says she is in some pain right over the left knee were the incision was made. However, she says she is doing pretty good. When asked, patient says physical therapy was up with her this morning. She points to the walker when I asked her if she uses a walker. She said she did not go into the hallway or up and down the stairs today with physical therapy. Has been passing gas. Patient denies any shortness of breath, chest pain, fever, nausea, vomiting, vision changes. Objective - Vital Signs Vital signs: Vital Signs Temp 98.8 F 09/28/20 10:08 Pulse 114 H 09/28/20 10:08 Resp 18 09/28/20 10:08 BP 147/90 09/28/20 10:08 Pulse Ox 95 09/28/20 07:36 Intake & Output 09/27/20 09/28/20 09/28/20 18:59 06:59 18:59 Output Total 600 Balance -600 Output: Urine 600 Other: Voiding Method CAPD CAPD CAPD # Voids 3 - Exam : Postoperative day #3 status post left total knee arthroplasty Incision is clean, dry, and intact. The exofin fusion tape is in good condition. There is minimal soft tissue swelling and ecchymosis surrounding the medial and lateral aspects of the incision. Calf is soft, no tenderness with palpation. Plantar flexion, dorsiflexion, EHL, FHL are intact. Sensory exam to light touch throughout the extremity is intact, dorsal pedis pulses 2+. - Labs CBC & Chem 7: 09/28/20 05:38 09/27/20 15:07 Labs: Abnormal Lab Results - Last 24 Hours (Table) 09/27/20 09/27/20 09/28/20 Range/Units 15:07 22:20 05:38 WBC 10.76 H (4.50-10.00) X 10*3/uL RBC 2.87 L (4.10-5.20) X 10*6/uL Hgb 9.3 L (12.0-15.0) g/dL Hct 30.4 L (37.2-46.3) % MCV 105.9 H (80.0-97.0) fL MCH 32.4 H (27.0-32.0) pg MCHC 30.6 L (32.0-37.0) g/dL RDW 15.2 H (11.5-14.5) % Absolute Nucleated RBC 0.03 H (0.00-0.00) X 10*3/uL Immature Gran # 0.14 H (0.00-0.04) X 10*3/uL Neutrophils # 8.02 H (1.80-7.70) X 10*3/uL Monocytes # 1.14 H (0.20-1.00) X 10*3/uL NRBC/100 WBC Diff 0.3 H (0.0-0.0) /100 WBCS Sodium 134 L (137-145) mmol/L BUN 49 H (7-17) mg/dL Creatinine 3.80 H (0.52-1.04) mg/dL Glucose 174 H (74-99) mg/dL Total Protein 6.2 L (6.3-8.2) g/dL Albumin 3.4 L (3.5-5.0) g/dL Urine Protein 2+ H (Negative) Urine Glucose (UA) Trace H (Negative) Urine Blood Small H (Negative) Urine Bacteria Rare H (None) /hpf Urine Mucus Rare H (None) /hpf Microbiology - Last 24 Hours (Table) 09/27/20 21:22 Gram Stain - Preliminary Dialysate Body Fluid Culture - Preliminary Assessment and Plan Assessment: Left knee osteoarthritis Plan: 1. Left knee osteoarthritis - left total knee arthroplasty performed 09/25/2020. Patient is stable at this time orthopedically. We will continue to see patient while in-hospital. Due to patient multiple medical comorbidities we will transfer patient admission to medicine. I did speak with Dr. Eagle and he okayed this. 2. Multiple medical comorbidities 3. Appreciate medical management 4. Pain management - stable at this time. Continue [place] 5. GI prophylaxis/DVT prophylaxis - continue senna while in hospital. Continue Xarelto while in hospital. 6. Encourage incentive spirometer use 7. PT/OT - up and out of bed 4 times a day. Ambulate with walker and assistance. Goal to use the stairs 8. Discharge planning - at this time we are planning for subacute rehab at [place]. m Patient is a difficult assist requiring 2 or 3 people when she ambulates with a walker. Time with Patient: Less than 30
--- NOTE | 2020-09-28 12:13 | P.PN ---
Subjective Patient is seen in follow-up for end-stage renal disease. She is maintained on peritoneal dialysis. No chest pain or shortness of breath. Hemodynamically stable. No active complaints. Vital signs are stable. General: The patient appeared well nourished and normally developed. HEENT: Head exam is unremarkable. Neck is without jugular venous distension. LUNGS: Breath sounds decreased. HEART: Rate and Rhythm are regular. ABDOMEN: Soft, no distention. EXTREMITITES: No edema. Objective - Vital Signs Vital signs: Vital Signs Temp 98.8 F 09/28/20 10:08 Pulse 114 H 09/28/20 10:08 Resp 18 09/28/20 10:08 BP 147/90 09/28/20 10:08 Pulse Ox 95 09/28/20 07:36 Intake & Output 09/27/20 09/28/20 09/28/20 18:59 06:59 18:59 Output Total 600 Balance -600 Output: Urine 600 Other: Voiding Method CAPD CAPD CAPD # Voids 3 - Labs CBC & Chem 7: 09/28/20 05:38 09/27/20 15:07 Labs: Abnormal Lab Results - Last 24 Hours (Table) 09/27/20 09/27/20 09/28/20 Range/Units 15:07 22:20 05:38 WBC 10.76 H (4.50-10.00) X 10*3/uL RBC 2.87 L (4.10-5.20) X 10*6/uL Hgb 9.3 L (12.0-15.0) g/dL Hct 30.4 L (37.2-46.3) % MCV 105.9 H (80.0-97.0) fL MCH 32.4 H (27.0-32.0) pg MCHC 30.6 L (32.0-37.0) g/dL RDW 15.2 H (11.5-14.5) % Absolute Nucleated RBC 0.03 H (0.00-0.00) X 10*3/uL Immature Gran # 0.14 H (0.00-0.04) X 10*3/uL Neutrophils # 8.02 H (1.80-7.70) X 10*3/uL Monocytes # 1.14 H (0.20-1.00) X 10*3/uL NRBC/100 WBC Diff 0.3 H (0.0-0.0) /100 WBCS Sodium 134 L (137-145) mmol/L BUN 49 H (7-17) mg/dL Creatinine 3.80 H (0.52-1.04) mg/dL Glucose 174 H (74-99) mg/dL Total Protein 6.2 L (6.3-8.2) g/dL Albumin 3.4 L (3.5-5.0) g/dL Urine Protein 2+ H (Negative) Urine Glucose (UA) Trace H (Negative) Urine Blood Small H (Negative) Urine Bacteria Rare H (None) /hpf Urine Mucus Rare H (None) /hpf Microbiology - Last 24 Hours (Table) 09/27/20 21:22 Gram Stain - Preliminary Dialysate Body Fluid Culture - Preliminary Assessment and Plan Plan: Assessment: 1. End-stage renal disease maintained on peritoneal dialysis. 2. Status post left knee arthroplasty September 25. 3. Anemia of chronic kidney disease. Iron deficiency noted. On Aranesp. 4. Chronic kidney disease mineral bone disease. Maintained on Renvela. Plan: Maintain 2 L exchanges every 6 hours with 1.5% dextrose solution. Maintain IV iron. Patient will be going to subacute rehab upon discharge. Unable to do peritoneal dialysis at subacute rehab. Will transition to hemodialysis while she is there. Consult vascular surgery for permacath placement. She will start hemodialysis on a Thursday schedule starting Thursday at [facility].
--- NOTE | 2020-09-28 13:23 | P.GSCN ---
History of Present Illness Consult date: 09/19/20 History of present illness: 55-year-old white female, patient was seen in consultation for placement of dialysis catheter. Patient had 2 total knee surgery done and she is going to go to subacute rehab. Patient is on peritoneal dialysis I was consulted for placement of a dialysis catheter. Patient is on Vargas 10 mg daily she took her There are 2 this morning discuss with nephrology we'll place the dialysis catheter Thursday morning. We will hold the Vargas today for dialysis catheter placement Neck examination neck is supple no bruit appreciated Chest clear first and second sound present good entry both lungs Abdomen soft nontender Vascular brachial radial femoral pulses are present Plan is place placement of a dialysis catheter right jugular approach hold the Vargas today risk and complication discussed Past Medical History Past Medical History: Hyperlipidemia, Renal Disease, Thyroid Disorder Additional Past Medical History / Comment(s): developmentally delayed, nightly peritoneal dialysis, has deep palate, some speech issues, swelling legs and ankles, hx of fx rt leg, History of Any Multi-Drug Resistant Organisms: None Reported Additional Past Surgical History / Comment(s): septoplasty, tubes in ear, oral surgery Past Anesthesia/Blood Transfusion Reactions: Family History of Problems w/ Anesthesia Additional Past Anesthesia/Blood Transfusion Reaction / Comm: mom-ponv Additional Psychological History / Comment(s): mother reports Isis as having high function disabilty with limited understanding of presented information - mom Yamel is legal guardian Smoking Status: Never smoker Past Alcohol Use History: None Reported Past Drug Use History: None Reported - Past Family History Father Family Medical History: Cancer Medications and Allergies Home Medications Medication Instructions Recorded Confirmed Type Levothyroxine Sodium [Synthroid] 112 mcg PO DAILY 01/10/20 09/25/20 History Sevelamer Carbonate 800 mg PO BID-W/MEALS 01/10/20 09/25/20 History Simvastatin [Zocor] 20 mg PO HS 01/10/20 09/25/20 History Ferrous Sulfate [Feosol] 325 mg PO DAILY 09/13/20 09/25/20 History Furosemide [Lasix] 80 mg PO BID 09/13/20 09/25/20 History Potassium Chloride [Klor-Con 10] 10 meq PO DAILY 09/13/20 09/25/20 History Allergies Allergy/AdvReac Type Severity Reaction Status Date / Time lisinopril Allergy Unknown Verified 09/25/20 09:01 Surgical - Exam Vital Signs Temp Pulse Resp BP Pulse Ox 97.7 F 104 H 18 131/74 100 09/25/20 09:08 09/25/20 09:08 09/25/20 09:08 09/25/20 09:08 09/25/20 09:08 Results - Labs 09/28/20 05:38 09/27/20 15:07 Abnormal Lab Results - Last 24 Hours (Table) 09/27/20 09/27/20 09/28/20 Range/Units 15:07 22:20 05:38 WBC 10.76 H (4.50-10.00) X 10*3/uL RBC 2.87 L (4.10-5.20) X 10*6/uL Hgb 9.3 L (12.0-15.0) g/dL Hct 30.4 L (37.2-46.3) % MCV 105.9 H (80.0-97.0) fL MCH 32.4 H (27.0-32.0) pg MCHC 30.6 L (32.0-37.0) g/dL RDW 15.2 H (11.5-14.5) % Absolute Nucleated RBC 0.03 H (0.00-0.00) X 10*3/uL Immature Gran # 0.14 H (0.00-0.04) X 10*3/uL Neutrophils # 8.02 H (1.80-7.70) X 10*3/uL Monocytes # 1.14 H (0.20-1.00) X 10*3/uL NRBC/100 WBC Diff 0.3 H (0.0-0.0) /100 WBCS Sodium 134 L (137-145) mmol/L BUN 49 H (7-17) mg/dL Creatinine 3.80 H (0.52-1.04) mg/dL Glucose 174 H (74-99) mg/dL Total Protein 6.2 L (6.3-8.2) g/dL Albumin 3.4 L (3.5-5.0) g/dL Urine Protein 2+ H (Negative) Urine Glucose (UA) Trace H (Negative) Urine Blood Small H (Negative) Urine Bacteria Rare H (None) /hpf Urine Mucus Rare H (None) /hpf Microbiology - Last 24 Hours (Table) 09/27/20 21:22 Gram Stain - Preliminary Dialysate Body Fluid Culture - Preliminary Diabetes panel 09/27/20 Range/Units 15:07 Sodium 134 L (137-145) mmol/L Potassium 4.0 (3.5-5.1) mmol/L Chloride 100 (98-107) mmol/L Carbon Dioxide 22 (22-30) mmol/L BUN 49 H (7-17) mg/dL Creatinine 3.80 H (0.52-1.04) mg/dL Glucose 174 H (74-99) mg/dL Calcium 9.4 (8.4-10.2) mg/dL AST 34 (14-36) U/L ALT 7 (4-34) U/L Alkaline Phosphatase 95 (38-126) U/L Total Protein 6.2 L (6.3-8.2) g/dL Albumin 3.4 L (3.5-5.0) g/dL Thyroid panel 09/27/20 Range/Units 15:07 TSH 3.350 (0.465-4.680) mIU/L Calcium panel 09/27/20 Range/Units 15:07 Calcium 9.4 (8.4-10.2) mg/dL Albumin 3.4 L (3.5-5.0) g/dL Pituitary panel 09/27/20 Range/Units 15:07 Sodium 134 L (137-145) mmol/L Potassium 4.0 (3.5-5.1) mmol/L Chloride 100 (98-107) mmol/L Carbon Dioxide 22 (22-30) mmol/L BUN 49 H (7-17) mg/dL Creatinine 3.80 H (0.52-1.04) mg/dL Glucose 174 H (74-99) mg/dL Calcium 9.4 (8.4-10.2) mg/dL TSH 3.350 (0.465-4.680) mIU/L Adrenal panel 09/27/20 Range/Units 15:07 Sodium 134 L (137-145) mmol/L Potassium 4.0 (3.5-5.1) mmol/L Chloride 100 (98-107) mmol/L Carbon Dioxide 22 (22-30) mmol/L BUN 49 H (7-17) mg/dL Creatinine 3.80 H (0.52-1.04) mg/dL Glucose 174 H (74-99) mg/dL Calcium 9.4 (8.4-10.2) mg/dL Total Bilirubin 0.2 (0.2-1.3) mg/dL AST 34 (14-36) U/L ALT 7 (4-34) U/L Alkaline Phosphatase 95 (38-126) U/L Total Protein 6.2 L (6.3-8.2) g/dL Albumin 3.4 L (3.5-5.0) g/dL
[2020-09-28 15:13] LABS: Hepatitis A Antibody IgM Non-Reactive (Non-Reactive); Hepatitis B Core IgM Non-Reactive (Non-Reactive); Hepatitis B Surface Antigen Non-Reactive (Non-Reactive); Hepatitis C IgG Antibody Non-Reactive (Non-Reactive)
[2020-09-28] MEDS: METOPROLOL TARTRATE 12.5 MG TAB PO SCH (18:39)
[2020-09-28] MEDS: SENNOSIDES-DOCUSATE SODIUM 1 EACH TAB PO SCH (19:19)
[2020-09-28] MEDS: ATORVASTATIN 10 MG TAB PO SCH (19:43)
--- NOTE | 2020-09-28 21:28 | PN ---
PROGRESS NOTE DATE OF SERVICE: 09/28/2020 This is a 55-year-old woman who was admitted after left total knee arthroplasty was on peritoneal dialysis. Temporary dialysis catheter is being planned to be inserted for continued hemodialysis in the [facility] where the patient is slated to have rehab. The patient has been on Xarelto, which has been held at this time. PAST MEDICAL HISTORY: Reviewed. REVIEW OF SYSTEMS: Could not be taken. CURRENT MEDICATIONS: Reviewed include Yale, Lipitor, Aranesp, Synthroid, other medication. Doses reviewed. PHYSICAL EXAM: Patient is alert and oriented times three. Pulse 114, blood pressure 143/87, respirations 18. Temperature 98.7, pulse ox 98% on room air. HEENT: Conjunctivae normal. NECK: No JVD. CARDIOVASCULAR: S1, S2 muffled. RESPIRATION: Breath sounds diminished in the bases. A few scattered rhonchi. ABDOMEN: Soft, nontender. No mass palpable. LEGS no edema, no swelling. NERVOUS SYSTEM: No focal deficits. LABS: WBC 10.7, hemoglobin 9.3, monocytes are 1.14, otherwise sodium 134. UA unremarkable. Covid is negative. Hepatitis panel is negative. The chest x-ray which was reviewed personally by me showed increased density in the right lower lobe, possibly atelectasis. ASSESSMENT: 1. Status post left total knee arthroplasty. 2. Increased WBC. 3. Right lower lobe atelectasis. 4. Anemia macrocytic. 5. Chronic kidney stage 4, on peritoneal dialysis. 6. Tachycardia sinus. 7. History of hyperlipidemia. 8. Hypothyroidism. 9. Development delay. 10.Nightly peritoneal dialysis prior to admission. 11.History of degenerative joint disease. 12.History of septoplasty. 13.Macrocytic anemia. 14.Hyponatremia. RECOMMENDATIONS AND DISCUSSION: Recommend to continue current medications, management and symptomatic treatment. We will resume the home medications. TSH is normal. Otherwise, I would also initiate a small dose of beta blockers and continue to monitor. Further recommendations to follow. MMODL / IJN: [id number] / MTDD
[2020-09-29] MEDS: LACTATED RINGERS 1,000 ML IV SCH (01:30)
[2020-09-29] MEDS: DIALYSIS (PERIT 1.5%) 2,000 ML 30 G/2,000 ML BAG INTRAPERIT SCH ×4 (02:38→20:48)
[2020-09-29] MEDS: METOPROLOL TARTRATE 12.5 MG TAB PO SCH ×2 (05:48→15:53)
[2020-09-29] MEDS: LEVOTHYROXINE 112 MCG TAB PO SCH (05:48)
[2020-09-29] MEDS: RIVAROXABAN 10 MG TAB PO SCH (06:33)
[2020-09-29] MEDS: FUROSEMIDE 80 MG TAB PO SCH ×2 (08:06→15:53)
[2020-09-29] MEDS: SEVELAMER 800 MG TAB PO SCH ×2 (08:06→15:53)
[2020-09-29] MEDS: SODIUM FERRIC GLUCONAT-SUCROSE 125 MG in SODIUM CHLORIDE 0.9% 100 ML IVPB SCH (08:29)
--- NOTE | 2020-09-29 15:37 | PN ---
PROGRESS NOTE Patient is seen for followup for end-stage renal disease. She is currently maintained on peritoneal dialysis and switching over to hemodialysis while she is in the subacute rehab. EXAMINATION: Today patient is comfortable. Blood pressure 128/81, heart rate 101 per minute, she is afebrile. Examination of the heart S1, S2. Examination of the lungs, decreased breath sounds at bases. Patient has developmental delay. She appears euvolemic. No evidence of edema noted in lower extremities. LAB: Show sodium 134 on 09/27/2020, potassium 4.0, creatinine 3.8, hemoglobin 9.3 g/dL. ASSESSMENT: 1. End-stage renal disease on peritoneal dialysis. Patient will switch over to hemodialysis temporarily while she is in rehab and then will resume PD. 2. Status post knee arthroplasty. 3. Anemia of chronic disease. 4. Chronic kidney disease mineral bone disorder. PLAN: Patient can be discharged from nephrology standpoint. She will hold the PD and start hemodialysis on Thursday at [facility]. MMODL / IJN: [id number] /
[2020-09-29] MEDS: SENNOSIDES-DOCUSATE SODIUM 1 EACH TAB PO SCH (20:00)
[2020-09-29] MEDS: ATORVASTATIN 10 MG TAB PO SCH (20:00)
--- NOTE | 2020-09-29 20:46 | PN ---
PROGRESS NOTE DATE OF SERVICE: 09/29/2020 This 55-year-old woman was admitted after left knee arthroplasty, slated for rehab. Before rehab hemodialysis being planned to be initiated. No chest pain. No palpitations. No fever. PHYSICAL EXAMINATION: Alert and oriented x2. Pulse is 107, blood pressure 120/80, respirations 18, temperature 98.4, pulse ox 94% on room air. HEENT: Conjunctivae normal. Oral mucosa moist. NECK: No jugular venous distention. No lymph node enlargement. CARDIOVASCULAR: S1, S2, muffled. No S3, no S4, RESPIRATORY: Diminished breath sounds at the bases. A few scattered rhonchi. ABDOMEN: Soft, nontender. LEGS: Left knee arthroplasty. NERVOUS SYSTEM: No focal deficits. LABS: WBC 10.6, hemoglobin 9.3, and creatinine 3.80. UA noted. COVID-19 is negative. ASSESSMENT: 1. Status post left total knee arthroplasty. 2. Increased WBC. 3. Right lower lobe atelectasis. 4. Anemia, macrocytic. 5. Chronic kidney disease, stage 4, on peritoneal dialysis. 6. Sinus tachycardia. 7. History of hyperlipidemia. 8. Hypothyroidism. 9. Abdominal pain daily. 10.Nightly peritoneal dialysis prior to admission. 11.History of DJD. 12.History of septoplasty. 13.Macrocytic anemia. 14.Hyponatremia. RECOMMENDATIONS AND DISCUSSION: Continue current medications, continue to monitor, continue symptomatic treatment. Otherwise, at this time incentive spirometry. Continue the rest of medications. Vascular access and hemodialysis per Nephrology. Guarded prognosis. Further recommendations to follow. Discussed with the family. Possible ECF rehab early next week. MMODL / IJN: [id number] /
[2020-09-30] MEDS: DIALYSIS (PERIT 1.5%) 2,000 ML 30 G/2,000 ML BAG INTRAPERIT SCH ×4 (01:55→20:15)
[2020-09-30] MEDS: LACTATED RINGERS 1,000 ML IV SCH (02:43)
[2020-09-30] MEDS: LEVOTHYROXINE 112 MCG TAB PO SCH (05:42)
[2020-09-30] MEDS: METOPROLOL TARTRATE 12.5 MG TAB PO SCH ×2 (05:42→16:40)
[2020-09-30] MEDS: SEVELAMER 800 MG TAB PO SCH ×2 (07:16→16:40)
[2020-09-30] MEDS: FUROSEMIDE 80 MG TAB PO SCH ×2 (07:20→15:14)
[2020-09-30] MEDS: SODIUM FERRIC GLUCONAT-SUCROSE 125 MG in SODIUM CHLORIDE 0.9% 100 ML IVPB SCH (09:04)
[2020-09-30] MEDS ORDERED: IV FLUID CONTINUATION 1,000 ML IV ONE (10:20)
[2020-09-30] MEDS ORDERED: MIDAZOLAM 2 MG/2 ML VIAL IV ONE (10:34)
[2020-09-30] MEDS ORDERED: LIDOCAINE 1% INJ 10MG/ML (20 ML MDV) SQ ONE ×2 (10:35→10:40)
[2020-09-30] MEDS ORDERED: fentaNYL (PF) 50 MCG/ML 2 ML AMP IV ONE (10:40)
--- NOTE | 2020-09-30 11:27 | IR ---
EXAMINATION TYPE: IR cvc insert central tunneled DATE OF EXAM: 09/30/2020 COMPARISON: NONE HISTORY: Fluoroscopy time. Fluoroscopy was provided to the referring clinician.
--- NOTE | 2020-09-30 12:02 | XR ---
EXAMINATION TYPE: XR chest 1V DATE OF EXAM: 09/30/2020 COMPARISON: 09/28/2019 HISTORY: Right jugular port placement TECHNIQUE: Single frontal view of the chest is obtained. FINDINGS: Right-sided dialysis catheter seen with the tip overlying the SVC. Bilateral infiltrate no merline. Limited inspiration and small right effusion. Heart size prominent no pneumothorax. IMPRESSION: 1. Dialysis catheter seen with the tip overlying the SVC. No sizable pneumothorax. 2. Bibasilar infiltrate.
--- NOTE | 2020-09-30 12:39 | PN ---
PROGRESS NOTE Patient is seen for followup for end-stage renal disease. She is currently maintained on peritoneal dialysis and awaiting PermCath placement for switching to hemodialysis temporarily while she will be in rehab. PHYSICAL EXAMINATION: On examination today, blood pressure 134/87, heart rate 101 per minute, she is afebrile. Examination of the heart S1, S2. Examination of the lungs, bilateral breath sounds are heard. Abdomen is soft, nontender, obese. Examination of lower extremities shows no evidence of edema. 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 LAB: Show sodium 134, potassium 4.0, BUN 49, creatinine 3.8. ASSESSMENT: 1. End-stage renal disease on peritoneal dialysis. Switching over to hemodialysis temporarily while patient will be in rehab. She will have her PermCath placed tomorrow. 2. Status post knee arthroplasty. 3. Chronic kidney disease mineral bone disorder. PLAN: Hemodialysis tomorrow. If patient is discharged today, she can have her dialysis tomorrow as outpatient as well. MMODL / IJN: [id number] / MTDD
--- NOTE | 2020-09-30 13:10 | PCN ---
PROCEDURE NOTE PREOP DIAGNOSIS: Acute on chronic renal failure. POSTOP DIAGNOSIS: Acute on chronic renal failure. PROCEDURE: Placement of dialysis catheter, 19 cm ultrasound-guided. Sedation time is 25 minutes. DESCRIPTION OF PROCEDURE: The patient brought to the cath lab radiology technician. Right side of the neck and chest was prepped and drapes applied in usual sterile manner. 1% lidocaine infiltrated. Ultrasound-guided micropuncture guide introduced to the right jugular vein and a 4-[place] Citizen dilator advanced on the top of the guidewire. Then a tunnel was created. Through the tunnel, we brought 19 cm dialysis catheter. Then we passed a regular guidewire and dilator was advanced and sheath was advanced on top of the guidewire. After that, we placed a dialysis catheter on the top of the guidewire between junction of the superior vena cava and atrium, flushed with heparin saline and hep-locked, secured with 3-0 nylon. Dressing applied. Patient tolerated the procedure well. MMODL / IJN: [id number] /
--- NOTE | 2020-09-30 18:03 | PN ---
PROGRESS NOTE DATE OF SERVICE: 09/30/2020 This is a 55-year-old woman who was admitted after left total knee arthroplasty is being closely monitored. The patient is awaiting hemodialysis prior to going to the [facility]. The most recent chest x-ray done today showed dialysis catheter on the right side and some basilar atelectasis. No chest pain. No palpitations. No fever. PHYSICAL EXAMINATION: Alert and oriented x3. Pulse 97, blood pressure 133/84, respiration 16, temperature normal, pulse ox 94% on room air. HEENT: Conjunctivae normal. Oral mucosa moist. NECK: No jugular venous distention. No lymph node enlargement. CARDIOVASCULAR: S1, S2, muffled. No S3, no S4, RESPIRATORY: Diminished breath sounds at the bases. No rhonchi and no crackles. ABDOMEN: Soft, nontender. LEGS: No edema, no swelling. NERVOUS SYSTEM: No focal deficits. LABS: WBC 9.2, hemoglobin 9.3. UA noted. COVID-19 is negative. ASSESSMENT: 1. Status post left total knee arthroplasty. 2. Increased WBC. 3. Right lower lobe atelectasis. 4. Anemia, macrocytic. 5. Chronic kidney stage 4 on peritoneal dialysis. 6. Sinus tachycardia. 7. History of hyperlipidemia. 8. Hypothyroidism. 9. Abdominal pain. 10.Nightly peritoneal dialysis prior to admission. 11.History of degenerative joint disease. 12.History of septoplasty. 13.Macrocytic anemia. 14.Hyponatremia. 15.FULL CODE. RECOMMENDATIONS AND DISCUSSION: Recommend to continue current medications, continue symptomatic treatment. Otherwise, I would also recommend more than 48 hours hospital stay for a full admit. Otherwise, repeat labs. Guarded prognosis. Further recommendations to follow. MMODL / IJN: [id number] /
[2020-09-30] MEDS: SENNOSIDES-DOCUSATE SODIUM 1 EACH TAB PO SCH (21:10)
[2020-09-30] MEDS: ATORVASTATIN 10 MG TAB PO SCH (21:10)
[2020-10-01] MEDS: DIALYSIS (PERIT 1.5%) 2,000 ML 30 G/2,000 ML BAG INTRAPERIT SCH ×2 (02:49→08:35)
[2020-10-01] MEDS: LEVOTHYROXINE 112 MCG TAB PO SCH (05:55)
[2020-10-01] MEDS: METOPROLOL TARTRATE 12.5 MG TAB PO SCH (05:55)
[2020-10-01] MEDS: LACTATED RINGERS 1,000 ML IV SCH (05:56)
[2020-10-01 07:48] VITALS: BP 131/75; PULSE 94; RESP 17; TEMP 98.8
[2020-10-01] MEDS: FUROSEMIDE 80 MG TAB PO SCH (08:12)
[2020-10-01] MEDS: SEVELAMER 800 MG TAB PO SCH (08:12)
[2020-10-01] MEDS: RIVAROXABAN 10 MG TAB PO SCH (08:14)
--- NOTE | 2020-10-01 11:40 | P.DS ---
Providers Date of admission: 09/28/20 16:53 Expected date of discharge: 10/01/20 Attending physician: Sidney Eagle Consults: 09/25/20 13:26 Consult Physician Routine Consulting Provider: Sidney Eagle Consult Reason/Comments: Medical Management; s/p left total knee arthroplasty Do you want consulting provider notified?: Yes 09/25/20 17:02 Consult Physician Urgent Consulting Provider: Napoleon Lara Consult Reason/Comments: Peritoneal dialysis Do you want consulting provider notified?: Already Contacted 09/26/20 14:23 Consult Physician Routine Consulting Provider: Matthew Miller Consult Reason/Comments: evaluate for inpatient rehab Do you want consulting provider notified?: Yes 09/28/20 10:50 Consult Physician Routine Consulting Provider: Manjeet Navarro Consult Reason/Comments: placement of hemodialysis catheter Do you want consulting provider notified?: Yes Primary care physician: Jose Couch Hospital Course: Final diagnosis Status post left total knee arthroplasty Increased white blood count Right lower lobe atelectasis Anemia, not macrocytic Chronic kidney disease stage IV on peritoneal dialysis Sinus tachycardia History of hyperlipidemia Hypothyroidism Abdominal pain Nightly peritoneal dialysis prior to admission History of degenerative joint disease History of septoplasty Macrocytic anemia Hyponatremia Full code Discharge disposition Patient is being discharged in a stable condition with guarded prognosis to [facility]. Patient will follow-up with Dr. Couch in the outpatient setting upon discharge. Patient will continue with hemodialysis upon discharge and follow-up outpatient with nephrology along with orthopedics as discussed and scheduled. Total time taken is greater than 35 minutes. Hospital course This is a 55-year-old female who was recently admitted after left total knee arthroplasty and was being closely monitored. Patient was receiving peritoneal dialysis although is being closely monitored by nephrology and received hemodialysis port and will continue with this upon discharge until follow-up with nephrology and further recommendations. Patient will also follow-up with orthopedics outpatient as discussed and scheduled. Currently no reports of chest pain, shortness of breath, or palpitations. Patient is afebrile. No reports of nausea or vomiting and patient is tolerating diet. Patient will be discharged to [facility] today. Guarded prognosis. On exam vital signs are stable. Cardio S1, S2 are muffled. Respiratory shows diminished breath sounds at the bases with no wheezing or rhonchi noted. Abdomen is soft and nontender. Nervous system shows mild diffuse weakness. Please refer to medication reconciliation sheet for a list of medications. Patient Condition at Discharge: Stable Plan - Discharge Summary Discharge Rx Participant: No New Discharge Prescriptions: New HYDROcodone/APAP 7.5-325MG [[place] 7.5] 1 each PO Q6HR PRN #32 tab PRN Reason: Pain Darbepoetin Felipe [Aranesp] 40 mcg SQ Q7D syringe Metoprolol Tartrate [Lopressor] 12.5 mg PO BID@0600,1800 tab Sennosides-Docusate Sodium [Senokot-S] 2 each PO HS tab Rivaroxaban [Xarelto] 10 mg PO DAILY tab Continue Simvastatin [Zocor] 20 mg PO HS Levothyroxine Sodium [Synthroid] 112 mcg PO DAILY Sevelamer Carbonate 800 mg PO BID-W/MEALS Furosemide [Lasix] 80 mg PO BID Ferrous Sulfate [Iron (65 MG Elemental)] 325 mg PO DAILY Potassium Chloride [Klor-Con 10] 10 meq PO DAILY Discharge Medication List Levothyroxine Sodium [Synthroid] 112 mcg PO DAILY 01/10/20 [History] Sevelamer Carbonate 800 mg PO BID-W/MEALS 01/10/20 [History] Simvastatin [Zocor] 20 mg PO HS 01/10/20 [History] Ferrous Sulfate [Iron (65 MG Elemental)] 325 mg PO DAILY 09/13/20 [History] Furosemide [Lasix] 80 mg PO BID 09/13/20 [History] Potassium Chloride [Klor-Con 10] 10 meq PO DAILY 09/13/20 [History] HYDROcodone/APAP 7.5-325MG [[place] 7.5] 1 each PO Q6HR PRN #32 tab 09/28/20 [Rx] Darbepoetin Felipe [Aranesp] 40 mcg SQ Q7D syringe 10/01/20 [Rx] Metoprolol Tartrate [Lopressor] 12.5 mg PO BID@0600,1800 tab 10/01/20 [Rx] Rivaroxaban [Xarelto] 10 mg PO DAILY tab 10/01/20 [Rx] Sennosides-Docusate Sodium [Senokot-S] 2 each PO HS tab 10/01/20 [Rx] Follow up Appointment(s)/Referral(s): [facility] [place] [NON-STAFF] - 10/01/20 1:30 pm () Gordon Eckert PAC [PHYSICIAN CHILD CARE PROVIDER] - 2 Weeks Patient Instructions/Handouts: Knee Replacement (GEN) Activity/Diet/Wound Care/Special Instructions: Orthopedic Discharge Instructions: 1. Wound care and infection precautions, keep incision dry and covered while showering, no lotions, creams, moisturizers. No soaking, pools, hot tubs. Do not scrub over incision. 2. Weight-bear as tolerated with walker / cane until follow-up. 3. Ice and elevate when necessary. Do not exceed 20 minutes per hour with ice pack. 4. Utilize compression sleeve until seen at first follow up appointment. 5. Pain meds and anticoagulants per prescription. 6. Pain medication has potential to cause constipation. Increase oral fluid and fiber intake. Contact primary care provider if you have not had a bowel movement within 48 hours after discharge. 7. No anti-inflammatory medication until discussed at first post operative visit, this including Motrin, Aleve, Mobic, Diclofenac 8. Follow up in office at 2 weeks postop with Matthew Eckert PA-C / Brandon Fernandez PA-C 9. Follow up with your primary care doctor 7-10 days after discharge. 10. Contact [facility] with any questions, . Activity as tolerated per orthopedics Continue dialysis and follow-up with nephrology outpatient Continue current diet Continue with incentive spirometer at least 10 times every hour while awake Discharge Disposition: TRANSFER TO SNF/ECF
--- NOTE | 2020-10-01 12:00 | PN ---
PROGRESS NOTE Patient is seen for followup for end-stage renal disease. She had her PermCath placed today to initiate hemodialysis while she is in rehab as they will not be able to do her peritoneal dialysis. There are plans for possible discharge today and patient will start hemodialysis on a Thursday, Thursday, Thursday schedule as outpatient. We will continue with the peritoneal dialysis for now. PHYSICAL EXAMINATION: On examination today, blood pressure 131/75, heart rate 94 per minute. She is afebrile. EXAMINATION OF THE HEART: S1, S2. EXAMINATION OF THE LUNGS: Bilateral breath sounds are heard. Abdomen is soft, obese, nontender. Examination of lower extremities shows no significant edema. 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 Patient has underlying developmental delay. LABS: Labs show hemoglobin 9.3 from 09/28. We do not have any new labs. ASSESSMENT: 1. End-stage renal disease, on peritoneal dialysis, status post hemodialysis catheter placement to switch to hemodialysis temporarily while patient is in rehab. 2. Status post knee arthroplasty. 3. Chronic kidney disease mineral bone disorder. PLAN: Continue with peritoneal dialysis until patient is discharged and she can start hemodialysis as outpatient. MMODL / IJN: [id number] /
== END 2020-10-01 12:48 | DRG 673 ==
LOC: OR 08:33 → 4SSUR 12:37 → OR 09-26 12:47 → OBSVTOIN 09-28 16:53
PROVIDERS: ADMIT Hospitalist; ATTEND Hospitalist
PROC: 0SRD0J9 Replacement of Left Knee Joint with Synthetic Substitute, Cemented, Open Approach (ICD-10-PCS; 2020-09-25)
PROC: 3E1M39Z Irrigation of Peritoneal Cavity using Dialysate, Percutaneous Approach (ICD-10-PCS; 2020-09-25)
PROC: 0JH63XZ Insertion of Tunneled Vascular Access Device into Chest Subcutaneous Tissue and Fascia, Percutaneous Approach (ICD-10-PCS; principal; 2020-09-30 10:30)
PROC: 02HV33Z Insertion of Infusion Device into Superior Vena Cava, Percutaneous Approach (ICD-10-PCS; principal; 2020-09-30 10:30)
DX: I12.0 Hypertensive chronic kidney disease with stage 5 chronic kidney disease or end stage renal disease (principal); N18.6 End stage renal disease; E87.1 Hypo-osmolality and hyponatremia; J98.11 Atelectasis; N17.9 Acute kidney failure, unspecified; M17.12 Unilateral primary osteoarthritis, left knee; D63.1 Anemia in chronic kidney disease; E83.9 Disorder of mineral metabolism, unspecified; Z99.2 Dependence on renal dialysis; Z20.822 Contact with and (suspected) exposure to COVID-19; E78.00 Pure hypercholesterolemia, unspecified; E03.9 Hypothyroidism, unspecified; E61.1 Iron deficiency; F89 Unspecified disorder of psychological development; E78.5 Hyperlipidemia, unspecified; Z79.890 Hormone replacement therapy; Z79.899 Other long term (current) drug therapy; Z87.39 Personal history of other diseases of the musculoskeletal system and connective tissue; Z86.69 Personal history of other diseases of the nervous system and sense organs; Z87.09 Personal history of other diseases of the respiratory system; Z87.81 Personal history of (healed) traumatic fracture; Z98.890 Other specified postprocedural states; Z88.8 Allergy status to other drugs, medicaments and biological substances; Z84.89 Family history of other specified conditions; Z80.9 Family history of malignant neoplasm, unspecified
CPT/HCPCS: 36558; 64448; 64999; 71045; 76937; 76942; 77001; 80048; 80053; 80074; 81001; 82728; 83540; 83550; 84443; 84484; 85025; 87070; 87205; 88300; 93005

== ENCOUNTER 2020-10-16 19:43 | Inpatient (IN) | payer MEDICARE, OTHER ==
[2020-10-16] MEDS ORDERED: ACETAMINOPHEN TAB 325 MG TAB PO STA (20:07)
[2020-10-16] MEDS: SODIUM CHLORIDE 0.9% 1,000 ML IV SCH (20:36)
[2020-10-16] MEDS: SODIUM CHLORIDE 0.9% 500 ML 500 ML IV SCH ×2 (20:38→23:21)
[2020-10-16 20:56] LABS: Basophils % (A) 0 %; Eosinophils # (A) 0.1 k/uL (0-0.7); Eosinophils % (A) 1 %; HCT 29.2 % (34.0-46.0); HGB 8.9 gm/dL (11.4-16.0); Hypochromasia Slight; Lymphocytes # (A) 0.5 k/uL (1.0-4.8); Lymphocytes % (A) 4 %; MCH 30.5 pg (25.0-35.0); MCHC 30.6 g/dL (31.0-37.0); MCV 99.6 fL (80.0-100.0); Macrocytosis Slight; Mean Platelet Volume 9.9; Monocytes # (A) 0.5 k/uL (0-1.0); Monocytes % (A) 4 %; Neutrophils # (A) 11.8 k/uL (1.3-7.7); Neutrophils % (A) 90 %; RBC 2.93 m/uL (3.80-5.40); RDW 15.6 % (11.5-15.5); WBC 13.1 k/uL (3.8-10.6)
[2020-10-16 20:59] LABS: Platelet Count 194 k/uL (150-450)
[2020-10-16 21:05] LABS: Albumin 2.9 g/dL (3.5-5.0); Calcium 9.4 mg/dL (8.4-10.2); Potassium 3.3 mmol/L (3.5-5.1); Total Bilirubin 0.2 mg/dL (0.2-1.3); Total Protein 5.7 g/dL (6.3-8.2)
[2020-10-16 21:07] LABS: INR 1.1 (<1.2); Partial Thromboplastin Time 23.3 sec (22.0-30.0); Prothrombin Time 11.9 sec (9.0-12.0)
--- NOTE | 2020-10-16 21:11 | XR ---
EXAMINATION TYPE: XR chest 2V DATE OF EXAM: 10/16/2020 COMPARISON: 09/30/2020 INDICATION: Fever TECHNIQUE: Frontal and lateral views of the chest are obtained. FINDINGS: The heart size is normal. The pulmonary vasculature is normal. On the lateral projection some subtle infiltrate overlying the spine in the lower region. A posterior infiltrate could be considered.. Double-lumen catheter is present on the right with the tip in the superior vena cava region Bilateral pneumoperitoneum is present. Additional workup is recommended. [facility] Lv by Dr. Hankins by telephone at time of interpretation. IMPRESSION: 1. Possible posterior infiltrate identified on the lateral projection. Pneumonia could be considered. 2. Large pneumoperitoneum. Additional workup is recommended.
[2020-10-16] MEDS ORDERED: VANCOMYCIN IV PER PHARMACY 1 EACH MISC MISCELLANE PRN (21:12)
[2020-10-16] MEDS ORDERED: VANCOMYCIN 1,750 MG in SODIUM CHLORIDE 0.9% 500 ML 500 ML IVPB ONE (21:30)
[2020-10-16] MEDS ORDERED: SODIUM CHLORIDE 0.9% IV STA (23:05)
[2020-10-16] MEDS ORDERED: NALOXONE 0.4 MG/ML 1 ML VIAL IV PRN (23:19)
[2020-10-16] MEDS ORDERED: ONDANSETRON 4 MG/2 ML VIAL IVP PRN (23:19)
[2020-10-17] MEDS: SODIUM CHLORIDE 0.9% 1,000 ML IV SCH (00:10)
--- NOTE | 2020-10-17 00:10 | ED ---
Fever HPI - General Chief Complaint: Fever Stated Complaint: post op fever Time Seen by Provider: 10/16/20 20:07 Source: patient, EMS Mode of arrival: EMS Limitations: no limitations - History of Present Illness Initial Comments: This patient is a 55-year-old woman who is here to have evaluation of fever. The patient states she also has had a little bit of intermittent cough. Patient's recent history does include knee surgery, but she denies any pain at the left knee. She had been at an extended care facility for rehab and then had recently been discharged home. Currently patient denying chest pain, abdominal pain. MD Complaint: fever Onset/Timin -: days(s) Temperature Source: subjective Context: recent procedure Associated Symptoms: cough Treatments Prior to Arrival: none - Related Data Home Medications Medication Instructions Recorded Confirmed Levothyroxine Sodium [Synthroid] 112 mcg PO DAILY 01/10/20 10/16/20 Sevelamer Carbonate 800 mg PO BID-W/MEALS 01/10/20 10/16/20 Simvastatin [Zocor] 20 mg PO HS 01/10/20 10/16/20 Ferrous Sulfate [Iron (65 MG 325 mg PO DAILY 09/13/20 10/16/20 Elemental)] Potassium Chloride [Klor-Con 10] 10 meq PO DAILY 09/13/20 10/16/20 Furosemide [Lasix] 40 mg PO BID 10/16/20 10/16/20 allopurinoL [Zyloprim] 100 mg PO DAILY 10/16/20 10/16/20 amLODIPine [Norvasc] 5 mg PO DAILY 10/16/20 10/16/20 Previous Rx's Medication Instructions Recorded Darbepoetin Felipe [Aranesp] 40 mcg SQ Q7D syringe 10/01/20 Allergies Allergy/AdvReac Type Severity Reaction Status Date / Time lisinopril Allergy Unknown Verified 10/16/20 20:48 Review of Systems ROS Statement: Those systems with pertinent positive or pertinent negative responses have been documented in the HPI. ROS Other: All systems not noted in ROS Statement are negative. Constitutional: Reports: fever ENT: Denies: ear pain, throat pain Respiratory: Reports: cough. Denies: dyspnea, wheezes, hemoptysis Cardiovascular: Denies: chest pain, palpitations Gastrointestinal: Denies: abdominal pain, vomiting, diarrhea Genitourinary: Denies: dysuria Musculoskeletal: Denies: back pain, arthralgia Skin: Denies: rash Neurological: Denies: headache, weakness Past Medical History Past Medical History: Hyperlipidemia, Renal Disease, Thyroid Disorder Additional Past Medical History / Comment(s): developmentally delayed, nightly peritoneal dialysis, has deep palate, some speech issues, swelling legs and ankles, hx of fx rt leg, History of Any Multi-Drug Resistant Organisms: None Reported Additional Past Surgical History / Comment(s): septoplasty, tubes in ear, oral surgery Past Anesthesia/Blood Transfusion Reactions: Family History of Problems w/ Anesthesia Additional Past Anesthesia/Blood Transfusion Reaction / Comment(s): mom-ponv Smoking Status: Never smoker Past Alcohol Use History: None Reported Past Drug Use History: None Reported - Past Family History Father Family Medical History: Cancer General Exam General appearance: alert, in no apparent distress Head exam: Present: atraumatic, normocephalic Eye exam: Present: normal appearance. Absent: scleral icterus, conjunctival injection ENT exam: Absent: normal oropharynx Neck exam: Present: normal inspection, full ROM. Absent: meningismus Respiratory exam: Present: normal lung sounds bilaterally. Absent: respiratory distress, wheezes, rales, rhonchi, stridor, accessory muscle use Cardiovascular Exam: Present: normal rhythm, tachycardia, normal heart sounds. Absent: systolic murmur, diastolic murmur, rubs, gallop GI/Abdominal exam: Present: soft, other (There is a peritoneal dialysis catheter with a normal appearance. There is no tenderness.). Absent: distended, tenderness, guarding, rebound, rigid, mass Extremities exam: Present: full ROM, normal capillary refill, other (The patient's postsurgical incision is clean dry and intact. There is no erythema, warmth or drainage. Dorsum of the left hand has mild soft tissue swelling. No tenderness. No palpable thrombus.). Absent: tenderness, pedal edema, joint swelling, calf tenderness Back exam: Present: normal inspection. Absent: CVA tenderness (R), CVA tenderness (L) Neurological exam: Present: alert Skin exam: Present: warm, dry, intact, normal color. Absent: rash Course Vital Signs 10/16/20 10/16/20 10/16/20 19:45 20:44 22:32 Temperature 103.0 F H 99.8 F H Pulse Rate 122 H 114 H Respiratory 18 18 Rate Blood Pressure 83/55 116/68 O2 Sat by Pulse 94 L 96 Oximetry 10/16/20 23:20 Temperature 99.0 F Pulse Rate 91 Respiratory 18 Rate Blood Pressure 97/62 O2 Sat by Pulse 97 Oximetry - Reevaluation(s) Reevaluation #1: 10/17/20 00:15 The fluid boluses based on ideal body weight. Procedures - Sepsis Sepsis Focused Exam #1 Sepsis Focused Exam Date: 10/17/20 Sepsis Focused Exam Time: 00:10 Sepsis Focused Exam Complete: Yes Vital Signs & RN Notes Reviewed: Yes Capillary Refill: < 2 Seconds: Fingers Peripheral Pulses: Normal: Radial (R) Skin Color: Flushed Respiratory Exam: normal lung sounds Cardiovascular Exam: regular rate, normal heart sounds Medical Decision Making - Medical Decision Making This patient is a 55-year-old woman here for fever. There is no obvious source with the workup. Given that the patient is a peritoneal dialysis patient, specimen of the dialysate will be sent for culture, though there is no exam e vidence of peritonitis. Patient be admitted for further antibiotics. Orthopedics also consulted though at this point no evidence of postoperative knee infection, there is good range of motion, no drainage, warmth or erythema. - Lab Data Result diagrams: 10/16/20 20:23 10/16/20 20:23 Lab Results 10/16/20 10/16/20 10/16/20 Range/Units 20:23 20:23 20:23 WBC 13.1 H (3.8-10.6) k/uL RBC 2.93 L (3.80-5.40) m/uL Hgb 8.9 L (11.4-16.0) gm/dL Hct 29.2 L (34.0-46.0) % MCV 99.6 (80.0-100.0) fL MCH 30.5 (25.0-35.0) pg MCHC 30.6 L (31.0-37.0) g/dL RDW 15.6 H (11.5-15.5) % Plt Count 194 D (150-450) k/uL MPV 9.9 Neutrophils % 90 % Lymphocytes % 4 % Monocytes % 4 % Eosinophils % 1 % Basophils % 0 % Neutrophils # 11.8 H (1.3-7.7) k/uL Lymphocytes # 0.5 L (1.0-4.8) k/uL Monocytes # 0.5 (0-1.0) k/uL Eosinophils # 0.1 (0-0.7) k/uL Basophils # 0.0 (0-0.2) k/uL Hypochromasia Slight Macrocytosis Slight PT 11.9 (9.0-12.0) sec INR 1.1 (<1.2) APTT 23.3 (22.0-30.0) sec Sodium 127 L (137-145) mmol/L Potassium 3.3 L (3.5-5.1) mmol/L Chloride 89 L (98-107) mmol/L Carbon Dioxide 26 (22-30) mmol/L Anion Gap 12 mmol/L BUN 54 H (7-17) mg/dL Creatinine 6.23 H (0.52-1.04) mg/dL Est GFR (CKD-EPI)AfAm 8 (>60 ml/min/1.73 sqM) Est GFR (CKD-EPI)NonAf 7 (>60 ml/min/1.73 sqM) Glucose 186 H (74-99) mg/dL Lactic Ac Sepsis Rflx Plasma Lactic Acid David (0.7-2.0) mmol/L Calcium 9.4 (8.4-10.2) mg/dL Total Bilirubin 0.2 (0.2-1.3) mg/dL AST 60 H (14-36) U/L ALT 42 H (4-34) U/L Alkaline Phosphatase 97 (38-126) U/L Total Protein 5.7 L (6.3-8.2) g/dL Albumin 2.9 L (3.5-5.0) g/dL 10/16/20 10/16/20 Range/Units 20:23 21:10 WBC (3.8-10.6) k/uL RBC (3.80-5.40) m/uL Hgb (11.4-16.0) gm/dL Hct (34.0-46.0) % MCV (80.0-100.0) fL MCH (25.0-35.0) pg MCHC (31.0-37.0) g/dL RDW (11.5-15.5) % Plt Count (150-450) k/uL MPV Neutrophils % % Lymphocytes % % Monocytes % % Eosinophils % % Basophils % % Neutrophils # (1.3-7.7) k/uL Lymphocytes # (1.0-4.8) k/uL Monocytes # (0-1.0) k/uL Eosinophils # (0-0.7) k/uL Basophils # (0-0.2) k/uL Hypochromasia Macrocytosis PT (9.0-12.0) sec INR (<1.2) APTT (22.0-30.0) sec Sodium (137-145) mmol/L Potassium (3.5-5.1) mmol/L Chloride (98-107) mmol/L Carbon Dioxide (22-30) mmol/L Anion Gap mmol/L BUN (7-17) mg/dL Creatinine (0.52-1.04) mg/dL Est GFR (CKD-EPI)AfAm (>60 ml/min/1.73 sqM) Est GFR (CKD-EPI)NonAf (>60 ml/min/1.73 sqM) Glucose (74-99) mg/dL Lactic Ac Sepsis Rflx Y Plasma Lactic Acid David 2.3 H* (0.7-2.0) mmol/L Calcium (8.4-10.2) mg/dL Total Bilirubin (0.2-1.3) mg/dL AST (14-36) U/L ALT (4-34) U/L Alkaline Phosphatase (38-126) U/L Total Protein (6.3-8.2) g/dL Albumin (3.5-5.0) g/dL Disposition Clinical Impression: ESRD on peritoneal dialysis, Fever of unknown origin Disposition: ADMITTED IP TO THIS HOSP Condition: Fair
[2020-10-17 01:05] LABS: Appearance,Urine Turbid (Clear); Bacteria,Urine Rare /hpf; Bilirubin,Urine Negative (Negative); Blood,Urine Small (Negative); Color,Urine Yellow; Glucose,Urine (UA) 1+ (Negative); Granular Casts,Urine 9 /lpf (0); Ketones,Urine Negative (Negative); Leukocyte Esterase,Urine Large (Negative); Nitrite,Urine Negative (Negative); PH, Urine 5.5 (5.0-8.0); Protein,Urine 3+ (Negative); RBC,Urine 7 /hpf (0-5); Specific Gravity,Urine 1.019 (1.001-1.035); Squamous Epithelial Cell,Urine 2 /hpf (0-4); WBC,Urine 66 /hpf (0-5)
[2020-10-17] MEDS: LEVOTHYROXINE 112 MCG TAB PO SCH (07:40)
[2020-10-17] MEDS: SEVELAMER 800 MG TAB PO SCH ×2 (07:40→17:42)
--- NOTE | 2020-10-17 12:52 | P.CNOR ---
History of Present Illness - [facility] Consult date: 10/17/20 Consult reason: other (Recent left total knee arthroplasty, sepsis) History of present illness: Patient is a 55 female who presented to [facility] yesterday evening with regards to a fever. Patient was recently discharged home from our with nursing and rehab after spending about 2 and half weeks thereafter her left total knee arthroplasty. Patient underwent a left total knee arthroplasty by Dr. Sewell on 09/25/2020. During the hospital stay, the patient was being followed by both internal medicine and nephrology. Patient is on peritoneal dialysis, a different dialysis catheter was placed prior to being discharged to rehab. Patient's family was with her today at bedside, she is mentally challenged and most of the review of systems and history of present illness was reviewed with patient's family. They state that since the patient's at home, she has a very difficult time walking and has no strength. The family states that the patient did not need much physical therapy at rehab. According to the family, they haven't noticed any significant change in her pain symptoms with regards to the left knee. patient was evaluated today in the emergency room, she is resting comfortably. Like stated above, review of systems along with physical exam was difficult due to her mental state. Internal medicine doctors also present today at bedside. Blood cultures are showing presumptive staph aureus infection at this time. She also has a elevated white blood cell count and plasma lactic acid. Review of Systems Constitutional: Reports as per HPI Past Medical History Past Medical History: Hyperlipidemia, Renal Disease, Thyroid Disorder Additional Past Medical History / Comment(s): developmentally delayed, nightly peritoneal dialysis, has deep palate, some speech issues, swelling legs and ankles, hx of fx rt leg, History of Any Multi-Drug Resistant Organisms: None Reported Additional Past Surgical History / Comment(s): septoplasty, tubes in ear, oral surgery Past Anesthesia/Blood Transfusion Reactions: Family History of Problems w/ Anesthesia Additional Past Anesthesia/Blood Transfusion Reaction / Comm: mom-ponv Smoking Status: Never smoker Past Alcohol Use History: None Reported Past Drug Use History: None Reported - Past Family History Father Family Medical History: Cancer Medications and Allergies Home Medications Medication Instructions Recorded Confirmed Type Levothyroxine Sodium [Synthroid] 112 mcg PO DAILY 01/10/20 10/16/20 History Sevelamer Carbonate 800 mg PO BID-W/MEALS 01/10/20 10/16/20 History Simvastatin [Zocor] 20 mg PO HS 01/10/20 10/16/20 History Ferrous Sulfate [Iron (65 MG 325 mg PO DAILY 09/13/20 10/16/20 History Elemental)] Potassium Chloride [Klor-Con 10] 10 meq PO DAILY 09/13/20 10/16/20 History Darbepoetin Felipe [Aranesp] 40 mcg SQ Q7D syringe 10/01/20 10/16/20 Rx Furosemide [Lasix] 40 mg PO BID 10/16/20 10/16/20 History allopurinoL [Zyloprim] 100 mg PO DAILY 10/16/20 10/16/20 History amLODIPine [Norvasc] 5 mg PO DAILY 10/16/20 10/16/20 History Allergies Allergy/AdvReac Type Severity Reaction Status Date / Time lisinopril Allergy Unknown Verified 10/16/20 20:48 Physical Examination Left lower extremity: Incision is well healing at this time, the exofin tape is still in place. This was removed today at bedside by myself. There is good scab formation noted throughout. There is no significant erythema. There is a small effusion present on the knee which is expected at 3 weeks postop. Patient is able to extend and flex knee, she lacks 10 of full extension, she can flex to 90. Passive motion of the knee, reproduce some discomfort but no extreme pain is reproduced on exam. The calf is soft, no tenderness with palpation. Plantar flexion, dorsiflexion, EHL, FHL are intact. The calf is soft, no tenderness with palpation. Her sensory exam light touch is intact in the extremity. Her dorsalis pedis pulses 2+ General Exam: No significant erythema present in the lower or upper part of the left leg area. The dialysis catheter that was placed in the right upper chest region show signs of erythema surrounding the borders. There is also a large area of erythema with scab present on the right side of the neck. The family states th is was draining a few days ago. Results - Labs Labs: Abnormal Lab Results - Last 24 Hours (Table) 10/16/20 10/16/20 10/16/20 Range/Units 00:47 20:23 20:23 WBC 13.1 H (3.8-10.6) k/uL RBC 2.93 L (3.80-5.40) m/uL Hgb 8.9 L (11.4-16.0) gm/dL Hct 29.2 L (34.0-46.0) % MCHC 30.6 L (31.0-37.0) g/dL RDW 15.6 H (11.5-15.5) % Neutrophils # 11.8 H (1.3-7.7) k/uL Lymphocytes # 0.5 L (1.0-4.8) k/uL Sodium 127 L (137-145) mmol/L Potassium 3.3 L (3.5-5.1) mmol/L Chloride 89 L (98-107) mmol/L BUN 54 H (7-17) mg/dL Creatinine 6.23 H (0.52-1.04) mg/dL Glucose 186 H (74-99) mg/dL Plasma Lactic Acid David (0.7-2.0) mmol/L AST 60 H (14-36) U/L ALT 42 H (4-34) U/L Total Protein 5.7 L (6.3-8.2) g/dL Albumin 2.9 L (3.5-5.0) g/dL Urine Appearance Turbid H (Clear) Urine Protein 3+ H (Negative) Urine Glucose (UA) 1+ H (Negative) Urine Blood Small H (Negative) Ur Leukocyte Esterase Large H (Negative) Urine RBC 7 H (0-5) /hpf Urine WBC 66 H (0-5) /hpf Urine Bacteria Rare H (None) /hpf 10/16/20 Range/Units 20:23 WBC (3.8-10.6) k/uL RBC (3.80-5.40) m/uL Hgb (11.4-16.0) gm/dL Hct (34.0-46.0) % MCHC (31.0-37.0) g/dL RDW (11.5-15.5) % Neutrophils # (1.3-7.7) k/uL Lymphocytes # (1.0-4.8) k/uL Sodium (137-145) mmol/L Potassium (3.5-5.1) mmol/L Chloride (98-107) mmol/L BUN (7-17) mg/dL Creatinine (0.52-1.04) mg/dL Glucose (74-99) mg/dL Plasma Lactic Acid David 2.3 H* (0.7-2.0) mmol/L AST (14-36) U/L ALT (4-34) U/L Total Protein (6.3-8.2) g/dL Albumin (3.5-5.0) g/dL Urine Appearance (Clear) Urine Protein (Negative) Urine Glucose (UA) (Negative) Urine Blood (Negative) Ur Leukocyte Esterase (Negative) Urine RBC (0-5) /hpf Urine WBC (0-5) /hpf Urine Bacteria (None) /hpf Microbiology - Last 24 Hours (Table) 10/16/20 20:23 Blood Culture Gram Stain - Preliminary Blood 10/16/20 20:23 Blood Culture - Final Blood 10/16/20 00:47 Urine Culture - Preliminary Urine,Voided H & H 10/16/20 Range/Units 20:23 Hgb 8.9 L (11.4-16.0) gm/dL Hct 29.2 L (34.0-46.0) % Coagulation 10/16/20 Range/Units 20:23 INR 1.1 (<1.2) Result Diagrams: 10/16/20 20:23 10/16/20 20:23 - Diagnostic results Knee x-ray: report reviewed, image reviewed (AP and lateral x-rays are ordered of left knee) Assessment and Plan Assessment: Bacteremia Leukocytosis Recent left total knee arthroplasty Multiple medical comorbidities Plan: I was able to discuss the case comes in with physical exam findings and imaging studies with my attending Dr. Sewell. Clinically the left knee does not present as a septic arthropathy. A lateral x-rays will be ordered and reviewed. Weight-bear as tolerated on left knee. Physical therapy evaluation will be ordered. Recommend ice and elevation along with oral medication for pain relief I did discuss internal medicine today at bedside the possible sources of bacteremia. Infectious disease will be consulted to help with current treatment. I am concerned with the cellulitis/possible abscess involving the right upper chest/neck area where the recent dialysis catheter was placed. We'll continue to follow the patient during inpatient stay and review of the medical specialty recommendations. Time with Patient: Less than 30
--- NOTE | 2020-10-17 13:12 | XR ---
EXAMINATION TYPE: XR knee limited LT DATE OF EXAM: 10/17/2020 COMPARISON: NONE HISTORY: Pain TECHNIQUE: Three views are submitted. FINDINGS: Postsurgical changes noted which appears similar to the prior exam. There is soft tissue edema. There is a suggestion of a fracture line along the anterior distal diaphysis just proximal to the femoral component. This could be postsurgical should be correlated clinically. IMPRESSION: 1. Postsurgical change. There is a lucency extending along the anterior margin of the distal diaphysi s of the femur to the level of the femoral component of the prostheses which could be postsurgical. S mall hairline fracture not excluded correlate clinically.
[2020-10-17] MEDS: DIALYSIS (PERIT 1.5%) 2,500 ML 37.5 G/2,500 ML BAG INTRAPERIT SCH ×2 (13:25→21:08)
--- NOTE | 2020-10-17 13:56 | P.HPIM ---
History of Present Illness 55-year-old female was brought to the hospital because of fever and generalized weakness. Patient had a recent left knee surgery on 09/25/2020 and the patient has been unable to bear weight for last few days on the left knee. Patient also has recurrent dialysis catheter and the patient's dialysate was cloudy. Patient also has right-sided permacath with the some redness around the neck area. Patient denied any cough dysuria. Urine analysis is bit abnormal with some large leukocyte esterase and WBC in the urine. Patient does have increased swelling in the left leg where she had a surgery of the surgical site appears to be clean patient the does have some pain with movement of this leg. The dialysis catheter was placed about 3 weeks ago during her hospitalization just before discharge Review of Systems His is mentally challenged rest of the review of systems unable to obtain. Past Medical History Past Medical History: Hyperlipidemia, Renal Disease, Thyroid Disorder Additional Past Medical History / Comment(s): developmentally delayed, nightly peritoneal dialysis, has deep palate, some speech issues, swelling legs and ankles, hx of fx rt leg, History of Any Multi-Drug Resistant Organisms: None Reported Additional Past Surgical History / Comment(s): septoplasty, tubes in ear, oral surgery Past Anesthesia/Blood Transfusion Reactions: Family History of Problems w/ Anesthesia Additional Past Anesthesia/Blood Transfusion Reaction / Comment(s): mom-ponv Smoking Status: Never smoker Past Alcohol Use History: None Reported Past Drug Use History: None Reported - Past Family History Father Family Medical History: Cancer Medications and Allergies Home Medications Medication Instructions Recorded Confirmed Type Levothyroxine Sodium [Synthroid] 112 mcg PO DAILY 01/10/20 10/16/20 History Sevelamer Carbonate 800 mg PO BID-W/MEALS 01/10/20 10/16/20 History Simvastatin [Zocor] 20 mg PO HS 01/10/20 10/16/20 History Ferrous Sulfate [Iron (65 MG 325 mg PO DAILY 09/13/20 10/16/20 History Elemental)] Potassium Chloride [Klor-Con 10] 10 meq PO DAILY 09/13/20 10/16/20 History Darbepoetin Felipe [Aranesp] 40 mcg SQ Q7D syringe 10/01/20 10/16/20 Rx Furosemide [Lasix] 40 mg PO BID 10/16/20 10/16/20 History allopurinoL [Zyloprim] 100 mg PO DAILY 10/16/20 10/16/20 History amLODIPine [Norvasc] 5 mg PO DAILY 10/16/20 10/16/20 History Allergies Allergy/AdvReac Type Severity Reaction Status Date / Time lisinopril Allergy Unknown Verified 10/16/20 20:48 Physical Exam Vitals: Vital Signs Temp Pulse Pulse Resp BP Pulse Ox 10/17/20 13:34 116 H 18 126/88 100 10/17/20 10:25 100 18 132/79 100 10/17/20 09:18 97.8 F 74 18 125/78 100 10/17/20 07:35 89 18 120/78 99 10/17/20 06:21 87 18 115/68 96 10/17/20 04:00 79 18 119/63 94 L 10/17/20 02:25 86 18 118/67 94 L 10/17/20 00:12 122 H 18 10/16/20 23:20 99.0 F 91 18 97/62 97 10/16/20 22:32 99.8 F H 10/16/20 20:44 114 H 18 116/68 96 10/16/20 19:45 103.0 F H 122 H 18 83/55 94 L Intake and Output 10/16/20 10/17/20 10/17/20 22:59 06:59 14:59 Other: Weight 91.626 kg PHYSICAL EXAMINATION: GENERAL: The patient is alert and oriented x3-3, not in any acute distress. Well developed, well nourished. HEENT: Pupils are round and equally reacting to light. EOMI. No scleral icterus. No conjunctival pallor. Normocephalic, atraumatic. No pharyngeal erythema. No thyromegaly. CARDIOVASCULAR: S1 and S2 present. No murmurs, rubs, or gallops. PULMONARY: Chest is clear to auscultation, no wheezing or crackles. ABDOMEN: Soft, nontender, nondistended, normoactive bowel sounds. No palpable organomegaly. MUSCULOSKELETAL: Left knee swelling as mentioned above EXTREMITIES: No cyanosis, clubbing, or pedal edema. NEUROLOGICAL: Gross neurological examination did not reveal any focal deficits. SKIN: Surgical site in the left knee is clean patient has some redness just above the permacath in the right side of the neck. Results CBC & Chem 7: 10/16/20 20:23 10/16/20 20:23 Labs: Abnormal Lab Results - Last 24 Hours (Table) 10/16/20 10/16/20 10/16/20 Range/Units 00:47 20:23 20:23 WBC 13.1 H (3.8-10.6) k/uL RBC 2.93 L (3.80-5.40) m/uL Hgb 8.9 L (11.4-16.0) gm/dL Hct 29.2 L (34.0-46.0) % MCHC 30.6 L (31.0-37.0) g/dL RDW 15.6 H (11.5-15.5) % Neutrophils # 11.8 H (1.3-7.7) k/uL Lymphocytes # 0.5 L (1.0-4.8) k/uL Sodium 127 L (137-145) mmol/L Potassium 3.3 L (3.5-5.1) mmol/L Chloride 89 L (98-107) mmol/L BUN 54 H (7-17) mg/dL Creatinine 6.23 H (0.52-1.04) mg/dL Glucose 186 H (74-99) mg/dL Plasma Lactic Acid David (0.7-2.0) mmol/L AST 60 H (14-36) U/L ALT 42 H (4-34) U/L Total Protein 5.7 L (6.3-8.2) g/dL Albumin 2.9 L (3.5-5.0) g/dL Urine Appearance Turbid H (Clear) Urine Protein 3+ H (Negative) Urine Glucose (UA) 1+ H (Negative) Urine Blood Small H (Negative) Ur Leukocyte Esterase Large H (Negative) Urine RBC 7 H (0-5) /hpf Urine WBC 66 H (0-5) /hpf Urine Bacteria Rare H (None) /hpf 10/16/20 Range/Units 20:23 WBC (3.8-10.6) k/uL RBC (3.80-5.40) m/uL Hgb (11.4-16.0) gm/dL Hct (34.0-46.0) % MCHC (31.0-37.0) g/dL RDW (11.5-15.5) % Neutrophils # (1.3-7.7) k/uL Lymphocytes # (1.0-4.8) k/uL Sodium (137-145) mmol/L Potassium (3.5-5.1) mmol/L Chloride (98-107) mmol/L BUN (7-17) mg/dL Creatinine (0.52-1.04) mg/dL Glucose (74-99) mg/dL Plasma Lactic Acid David 2.3 H* (0.7-2.0) mmol/L AST (14-36) U/L ALT (4-34) U/L Total Protein (6.3-8.2) g/dL Albumin (3.5-5.0) g/dL Urine Appearance (Clear) Urine Protein (Negative) Urine Glucose (UA) (Negative) Urine Blood (Negative) Ur Leukocyte Esterase (Negative) Urine RBC (0-5) /hpf Urine WBC (0-5) /hpf Urine Bacteria (None) /hpf Microbiology - Last 24 Hours (Table) 10/16/20 20:23 Blood Culture Gram Stain - Preliminary Blood 10/16/20 20:23 Blood Culture - Final Blood 10/16/20 00:47 Urine Culture - Preliminary Urine,Voided Assessment and Plan Plan: -Sepsis secondary to bacteremia most probably Staphylococcus patient has gram- positive cocci in clusters. Possible source is being be toenail dialysis catheter, permacath, knee. Orthopedic surgery evaluated the patient and probably whether the patient has well. The blood cultures will be obtain for today and tomorrow, infectious disease was consulted. -Hyponatremia: Secondary to renal failure patient will resume on peritoneal dialysis -Leukocytosis secondary to sepsis -Hyperlipidemia -End-stage renal disease on hemodialysis. -Hypertension DVT prophylaxis with heparin
[2020-10-17] MEDS: FUROSEMIDE 40 MG TAB PO SCH ×2 (14:31→17:42)
[2020-10-17] MEDS: amLODIPine 5 MG TAB PO SCH (14:31)
[2020-10-17] MEDS: FERROUS SULFATE 325 MG TAB PO SCH (14:31)
--- NOTE | 2020-10-17 16:52 | CONS ---
CONSULTATION REASON FOR CONSULT: End-stage renal disease. HISTORY OF PRESENT ILLNESS: Patient is a 55-year-old female with end-stage renal disease on peritoneal dialysis and recently switched over to hemodialysis while she was in rehab after knee arthroplasty. The patient had come home about 2 days ago and peritoneal dialysis were restarted at home. She has been admitted this time with complaints of weakness and fever. The patient denies any nausea, vomiting or abdominal pain. She has not been able to bear weight for the last few days on the left knee where she had the left knee arthroplasty. No drainage noted from the PermCath site. No significant abdominal pain per patient's mother and her fluid has been clear with some strings of fibrin prior to her admission. PAST MEDICAL HISTORY: Hyperlipidemia, hypothyroidism, patient has developmental delay, end-stage renal disease. PAST SURGICAL HISTORY: Septoplasty, PD catheter placement, PermCath placement, recent knee arthroplasty. MEDICATIONS: Medications at home prior to admission included Synthroid, Zocor, iron, potassium, Aranesp, Lasix, Zyloprim, Norvasc. ALLERGIES: Include LISINOPRIL. PHYSICAL EXAMINATION: Patient is comfortable, awake, not in any acute distress. Pleasant. Blood pressure was 126/88, heart rate 116 per minute, she is afebrile. Examination of the heart S1, S2. Examination of the lungs, bilateral breath sounds are heard. Abdomen is soft, nontender. Examination of lower extremities shows no evidence of edema. TRAFFIC SIGN SUPERVISOR exam grossly intact. LAB: Show sodium of 127, potassium 3.3, chloride 89, BUN 54, creatinine 6.23. Lactic acid 2.3, hemoglobin 8.9 g/dL. ASSESSMENT: 1. End-stage renal disease on peritoneal dialysis. The patient was on temporary hemodialysis after knee arthroplasty as she had to go to rehab. She is currently back at home and doing PD and we will continue with PD for now. Fluid cultures will be sent out to rule out underlying peritonitis, although I doubt it. 2. Sepsis from rule out any infection. Blood cultures growing gram-positive Staph. 3. Hypertension. 4. Hyperlipidemia. 5. Leukocytosis secondary to sepsis. PLAN: Maintain peritoneal dialysis. Send PD fluid for cell count, Gram stain and culture. Continue empiric antibiotics. Follow up with orthopedics. Thank you for this consultation. MMODL / IJN: [id number] /
[2020-10-17] MEDS ORDERED: VANCOMYCIN 1,500 MG in SODIUM CHLORIDE 0.9% 250 ML IVPB ONE (21:00)
[2020-10-17] MEDS: ATORVASTATIN 10 MG TAB PO SCH (22:35)
[2020-10-17] MEDS: ACETAMINOPHEN TAB 325 MG TAB PO PRN (22:45)
[2020-10-18] MEDS: DIALYSIS (PERIT 1.5%) 2,500 ML 37.5 G/2,500 ML BAG INTRAPERIT SCH ×4 (01:36→13:37)
[2020-10-18 05:22] LABS: Appearance,BF Clear; Color,BF Colorless; Nucleated Cells, Body Fluid 8 /uL; RBC, Body Fluid 2 /uL
[2020-10-18] MEDS: LEVOTHYROXINE 112 MCG TAB PO SCH (05:36)
--- NOTE | 2020-10-18 06:11 | CONS ---
CONSULTATION DATE OF SERVICE: 10/17/2020 REASON FOR CONSULTATION: Bacteremia. HISTORY OF PRESENT ILLNESS: The patient is a 55-year-old female with a past medical history significant for end-stage renal disease, on peritoneal dialysis that was recently switched to hemodialysis after patient had left knee replacement surgery performed. After surgery, the patient was sent to the inpatient rehab. The patient had been recently discharged home. The patient presented to [facility] ER last night for evaluation of fever and intermittent cough. The patient denies having any headache or URI symptoms. Patient's cough is mostly dry in nature, mild in intensity. The patient denies any nausea, vomiting, abdominal pain, no diarrhea. The patient's left knee incision is currently healed. Denies having any worsening pain to the left knee area. With these symptoms, the patient has been evaluated by the ER physician. On arrival to the ER, the patient did have fever of 103 degrees Fahrenheit. The patient is not hypoxic, currently saturating 98-100% on room air. The patient did have a white count of 13,000 with left shift. BUN of 54, creatinine 6.23. Lactic acid was 2.3. CRP is 33. [place] PCR was negative. The patient did have a chest x-ray that shows possible posterior infiltrate identified on the lateral projection. Pneumonia could be considered. Large pneumoperitoneum. The patient did have blood cultures drawn now showing Staph aureus. The patient was started on vancomycin. Infectious Disease was consulted for further management of antibiotic therapy. REVIEW OF SYSTEMS: Positive points have been mentioned in HPI. Rest of the systems are negative. PAST MEDICAL HISTORY: Hypertension, hyperlipidemia, , end-stage renal disease on peritoneal dialysis, osteoarthritis. PAST SURGICAL HISTORY: PD catheter placement, PermCath placement and recent left knee arthroplasty. SOCIAL HISTORY: No history of smoking, drinking or drug use. FAMILY HISTORY: No pertinent findings noticed. ALLERGIES: LISINOPRIL. MEDICATIONS: Include the patient is currently on vancomycin, Pharmacy to dose. The patient is on Tylenol, Zyloprim, Norvasc, Lipitor, iron sulfate, Lasix, Synthroid, Narcan, Zofran. PHYSICAL EXAMINATION: VITAL SIGNS: On examination, her blood pressure is 106/28 with a pulse of 103, temperature 98, she is 93% on room air. GENERAL DESCRIPTION: A middle-aged female lying in bed in no distress. No tachypnea or accessory muscles of respiration use. HEENT: Examination shows pallor, no scleral icterus. Oral mucous membrane is dry. NECK: Trachea central, no thyromegaly. LUNGS: Unlabored breathing, decreased breath sounds at the bases. No wheeze. HEART: S1-S2, regular rate and rhythm. ABDOMEN: Soft, PD catheter site with no swelling, no redness, no drainage. EXTREMITIES: No edema of the feet. SKIN: No rash or mass palpable. NEUROLOGICAL: Patient is awake, alert, oriented times three. Mood and affect normal. LABS: Hemoglobin 8.8, white count 13.9, BUN of 54, creatinine 6.2, lactic acid 2.8 repeat is 0.9. Blood culture with Staph aureus. DIAGNOSTIC IMPRESSION: Patient admitted to the hospital with sepsis. The patient did have a fever, tachycardia, elevated white count and lactic acid now with evidence of Staph aureus bacteremia, possible PermCath infection plus/minus pneumonia. Left knee site looks currently clean and the PD catheter site looks clean as well. PLAN: 1. Blood cultures will be repeated from the PermCath as well as peripheral. 2. Vancomycin, pharmacy to dose target of 15. 3. Peritoneal dialysis fluid should be sent for cell count and culture. 4. We will follow on clinical condition and culture to further adjust medication if needed. Thank you for this consultation. Will follow this patient along with you. MMODL / IJN: [id number] /
[2020-10-18 06:48] LABS: African American GFR (CKD) 8 (>60 ml/min/1.73 sqM); Anion Gap 12 mmol/L; Blood Urea Nitrogen 59 mg/dL (7-17); Carbon Dioxide 23 mmol/L (22-30); Chloride 95 mmol/L (98-107); Glucose 155 mg/dL (74-99); Non-African American GFR(CKD) 7 (>60 ml/min/1.73 sqM); Potassium 3.4 mmol/L (3.5-5.1); Sodium 130 mmol/L (137-145)
[2020-10-18] MEDS: SODIUM CHLORIDE 0.9% 1,000 ML IV SCH ×2 (07:07→22:02)
[2020-10-18] MEDS: allopurinoL 100 MG TAB PO SCH (08:50)
[2020-10-18] MEDS: FERROUS SULFATE 325 MG TAB PO SCH (08:50)
[2020-10-18] MEDS: amLODIPine 5 MG TAB PO SCH (08:50)
[2020-10-18] MEDS: ACETAMINOPHEN TAB 325 MG TAB PO PRN (08:50)
[2020-10-18] MEDS: SEVELAMER 800 MG TAB PO SCH ×2 (08:50→16:25)
[2020-10-18] MEDS: FUROSEMIDE 40 MG TAB PO SCH ×2 (09:13→16:26)
[2020-10-18 09:17] LABS: HCT 27.5 % (37.2-46.3); HGB 8.4 g/dL (12.0-15.0); MCHC 30.5 g/dL (32.0-37.0); MCV 101.5 fL (80.0-97.0); Mean Platelet Volume 12.4 fL (9.5-12.2); Platelet Count 186 X 10*3/uL (140-440); RBC 2.71 X 10*6/uL (4.10-5.20); RDW 15.9 % (11.5-14.5); WBC 13.61 X 10*3/uL (4.50-10.00)
--- NOTE | 2020-10-18 12:48 | P.PN ---
Subjective Progress Note Date: 10/18/20 Principal diagnosis: Bacteremia, leukocytosis, right hand cellulitis, possible right neck abscess, history of recent left total knee arthroplasty Patient was evaluated today at bedside, she is resting comfortably. Dr. Sewell was also available today to examine the patient. Patient's overall clinical setting has remained about the same since yesterday. Her knee has not worsened with regards to the discomfort or other findings on clinical exam. Sed rate and CRP were drawn yesterday, they are both elevated at this time, please see lab results for exact values. She is on IV antibiotics at this time, infectious disease is also following, along with internal medicine and n ephrology. Objective - Vital Signs Vital signs: Vital Signs Temp 97.9 F 10/18/20 09:10 Pulse 75 10/18/20 09:10 Resp 16 10/18/20 09:10 BP 118/67 10/18/20 09:10 Pulse Ox 94 L 10/18/20 09:10 Intake & Output 10/17/20 10/18/20 10/18/20 18:59 06:59 18:59 Other: Voiding Method CAPD - Exam Left lower extremity: Incision is well healing at this time, the exofin tape is still in place. This was removed today at bedside by myself. There is good scab formation noted throughout. There is no significant erythema. There is a small effusion present on the knee which is expected at 3 weeks postop. Patient is able to extend and flex knee, she lacks 10 of full extension, she can flex to 90. Passive motion of the knee, reproduce some discomfort but no extreme pain is reproduced on exam. The calf is soft, no tenderness with palpation. Plantar flexion, dorsiflexion, EHL, FHL are intact. The calf is soft, no tenderness with palpation. Her sensory exam light touch is intact in the extremity. Her dorsalis pedis pulses 2+ General Exam: No significant erythema present in the lower or upper part of the left leg area. The dialysis catheter that was placed in the right upper chest region show signs of erythema surrounding the borders. There is also a large area of erythema with scab present on the right side of the neck, today on exam there was notable purulence drainage. Exam of the right upper extremity did demonstrate obvious erythema and soft tissue swelling in the dorsum of the hand extending into the fingers. No obvious fluctuance was appreciated throughout the hand or wrist. Sensory exam to light touch throughout the right upper extremity was intact. Radial and ulnar pulses are 2+. - Labs CBC & Chem 7: 10/18/20 05:38 10/18/20 05:38 Labs: Abnormal Lab Results - Last 24 Hours (Table) 10/17/20 10/17/20 10/18/20 Range/Units 16:57 16:57 05:38 WBC (4.50-10.00) X 10*3/uL RBC (4.10-5.20) X 10*6/uL Hgb (12.0-15.0) g/dL Hct (37.2-46.3) % MCV (80.0-97.0) fL MCHC (32.0-37.0) g/dL RDW (11.5-14.5) % MPV (9.5-12.2) fL ESR 121 H (0-20) mm/hr Sodium 130 L (137-145) mmol/L Potassium 3.4 L (3.5-5.1) mmol/L Chloride 95 L (98-107) mmol/L BUN 59 H (7-17) mg/dL Creatinine 6.21 H (0.52-1.04) mg/dL Glucose 155 H (74-99) mg/dL C-Reactive Protein 33.0 H (<1.0) mg/dL Random Vancomycin ug/mL 10/18/20 10/18/20 Range/Units 05:38 05:38 WBC 13.61 H (4.50-10.00) X 10*3/uL RBC 2.71 L (4.10-5.20) X 10*6/uL Hgb 8.4 L (12.0-15.0) g/dL Hct 27.5 L (37.2-46.3) % MCV 101.5 H (80.0-97.0) fL MCHC 30.5 L (32.0-37.0) g/dL RDW 15.9 H (11.5-14.5) % MPV 12.4 H (9.5-12.2) fL ESR (0-20) mm/hr Sodium (137-145) mmol/L Potassium (3.5-5.1) mmol/L Chloride (98-107) mmol/L BUN (7-17) mg/dL Creatinine (0.52-1.04) mg/dL Glucose (74-99) mg/dL C-Reactive Protein (<1.0) mg/dL Random Vancomycin 47.3 H* ug/mL Microbiology - Last 24 Hours (Table) 10/16/20 00:47 Urine Culture - Final Urine,Voided 10/16/20 20:23 Blood Culture Gram Stain - Preliminary Blood Blood Culture - Preliminary Staphylococcus aureus 10/16/20 20:23 Blood Culture - Final Blood Assessment and Plan Assessment: Bacteremia Leukocytosis Right hand cellulitis Possible neck abscess, recent dialysis catheter placement Recent left total knee arthroplasty Multiple medical comorbidities Plan: I was able to discuss the case comes in with physical exam findings and imaging studies with my attending Dr. Sewell. X-rays were reviewed of the left knee, hardware shows no obvious lucencies or other abnormalities. We believe the left knee remains benign at this time, unlikely source of infection. We will continue to monitor during inpatient stay. Weight-bear as tolerated on left knee. Physical therapy evaluation will be ordered. Recommend ice and elevation along with oral medication for pain relief Discussed with nursing today at bedside the need for either vascular surgery or general surgeon to evaluate the right neck area for possible abscess and removal of the dialysis catheter that is in place. Other medical specialty recommendations Please contact us with any further questions regarding patient Time with Patient: Less than 30
[2020-10-18] MEDS ORDERED: LIDOCAINE 1% INJ 10MG/ML (20 ML MDV) SQ STA (13:31)
--- NOTE | 2020-10-18 14:07 | PN ---
PROGRESS NOTE DATE OF SERVICE: 10/18/2020 REASON FOR FOLLOWUP: Fever and streptococcal bacteremia. INTERVAL HISTORY: Patient did have a low grade fever of 100.8 last night. The patient afebrile since then. The patient is breathing comfortably. Denies any chest pain. No shortness of breath, cough, abdominal pain and denies pain to the left knee area. PHYSICAL EXAMINATION: Blood pressure 118/67, pulse of 75, temperature 97.9. She is 94% on room air. General description is a middle-aged female lying in in no distress. Respiratory system: Unlabored breathing, clear to auscultation anteriorly. Heart S1, S2. Regular rate and rhythm. ABDOMEN: Soft, no tenderness. Left knee incision is healed. Some swelling, no redness. LABS: Hemoglobin 8.4, white count 13.7, BUN is 59, creatinine blood culture with Staph aureus. DIAGNOSTIC IMPRESSION AND PLAN: Patient admitted to the hospital with sepsis Staphylococcal bacteremia concerning for possible PermCath infection waiting for the culture to finalize. On vancomycin, being dosed by pharmacy and monitor clinical course closely. MMODL / IJN: [id number] /
[2020-10-18] MEDS ORDERED: POTASSIUM CHLORIDE ER 20 MEQ TAB.ER PO STA (14:37)
--- NOTE | 2020-10-18 14:38 | P.PN ---
Subjective 55-year-old female was brought to the hospital because of fever and generalized weakness. Patient had a recent left knee surgery on 09/25/2020 and the patient has been unable to bear weight for last few days on the left knee. Patient also has recurrent dialysis catheter and the patient's dialysate was cloudy. Patient also has right-sided permacath with the some redness around the neck area. Patient denied any cough dysuria. Urine analysis is bit abnormal with some large leukocyte esterase and WBC in the urine. Patient does have increased swelling in the left leg where she had a surgery of the surgical site appears to be clean patient the does have some pain with movement of this leg. The dialysis catheter was placed about 3 weeks ago during her hospitalization just before discharge. 10/18/2020 Patient wasn't evaluated by infectious disease and patient is being continued on vancomycin patient had a low-grade fever last night. A concern is permacath infection. Patient also has a peroneal dialysis catheter peritoneal fluid is being sent for analysis. Patient also had a right knee surgery possibility that his right knee , the source of infection is low. Constitutional: Denied any fatigue denied any fever. Cardio vascular: denied any chest pain, palpitations Gastrointestinal denied any nausea vomiting Pulmonary: Denied any shortness of breath cough Neurologic denied any new focal deficits All inpatient medications were reviewed and appropriate changes in these medications as dictated in the interval history and assessment and plan. Objective - Vital Signs Vital signs: Vital Signs Temp 97.9 F 10/18/20 09:10 Pulse 75 10/18/20 09:10 Resp 16 10/18/20 09:10 BP 118/67 10/18/20 09:10 Pulse Ox 94 L 10/18/20 09:10 Intake & Output 10/17/20 10/18/20 10/18/20 18:59 06:59 18:59 Weight 91.626 kg Other: Voiding Method CAPD - Exam PHYSICAL EXAMINATION: GENERAL: The patient is alert and oriented x3-3, not in any acute distress. Well developed, well nourished. HEENT: Pupils are round and equally reacting to light. EOMI. No scleral icterus. No conjunctival pallor. Normocephalic, atraumatic. No pharyngeal erythema. No thyromegaly. CARDIOVASCULAR: S1 and S2 present. No murmurs, rubs, or gallops. PULMONARY: Chest is clear to auscultation, no wheezing or crackles. ABDOMEN: Soft, nontender, nondistended, normoactive bowel sounds. No palpable organomegaly. MUSCULOSKELETAL: Left knee swelling as mentioned above EXTREMITIES: No cyanosis, clubbing, or pedal edema. NEUROLOGICAL: Gross neurological examination did not reveal any focal deficits. SKIN: Surgical site in the left knee is clean . - Labs CBC & Chem 7: 10/18/20 05:38 10/18/20 05:38 Labs: Abnormal Lab Results - Last 24 Hours (Table) 10/17/20 10/17/20 10/18/20 Range/Units 16:57 16:57 05:38 WBC (4.50-10.00) X 10*3/uL RBC (4.10-5.20) X 10*6/uL Hgb (12.0-15.0) g/dL Hct (37.2-46.3) % MCV (80.0-97.0) fL MCHC (32.0-37.0) g/dL RDW (11.5-14.5) % MPV (9.5-12.2) fL ESR 121 H (0-20) mm/hr Sodium 130 L (137-145) mmol/L Potassium 3.4 L (3.5-5.1) mmol/L Chloride 95 L (98-107) mmol/L BUN 59 H (7-17) mg/dL Creatinine 6.21 H (0.52-1.04) mg/dL Glucose 155 H (74-99) mg/dL C-Reactive Protein 33.0 H (<1.0) mg/dL Random Vancomycin ug/mL 10/18/20 10/18/20 Range/Units 05:38 05:38 WBC 13.61 H (4.50-10.00) X 10*3/uL RBC 2.71 L (4.10-5.20) X 10*6/uL Hgb 8.4 L (12.0-15.0) g/dL Hct 27.5 L (37.2-46.3) % MCV 101.5 H (80.0-97.0) fL MCHC 30.5 L (32.0-37.0) g/dL RDW 15.9 H (11.5-14.5) % MPV 12.4 H (9.5-12.2) fL ESR (0-20) mm/hr Sodium (137-145) mmol/L Potassium (3.5-5.1) mmol/L Chloride (98-107) mmol/L BUN (7-17) mg/dL Creatinine (0.52-1.04) mg/dL Glucose (74-99) mg/dL C-Reactive Protein (<1.0) mg/dL Random Vancomycin 47.3 H* ug/mL Microbiology - Last 24 Hours (Table) 10/16/20 00:47 Urine Culture - Final Urine,Voided 10/16/20 20:23 Blood Culture Gram Stain - Preliminary Blood Blood Culture - Preliminary Staphylococcus aureus 10/16/20 20:23 Blood Culture - Final Blood Assessment and Plan Plan: -Sepsis secondary to bacteremia most probably Staphylococcus patient has gram- positive cocci in clusters. Possible source is being be toenail dialysis catheter, permacath, infectious disease evaluated the patient patient is on vancomycin. -Hyponatremia: Secondary to renal failure patient is on peritoneal dialysis, sodium is improving -Leukocytosis secondary to sepsis -Hyperlipidemia -End-stage renal disease on hemodialysis. -Hypertension DVT prophylaxis with heparin
--- NOTE | 2020-10-18 15:22 | PN ---
PROGRESS NOTE Patient is seen for followup for end-stage renal disease. She was admitted to the hospital with complaints of fever. She is a status post recent left total knee arthroplasty. The patient's blood cultures are growing Staph aureus. She also has a right IJ PermCath as patient was temporarily switched to hemodialysis while she was in rehab. The patient is back on PD and is tolerating peritoneal dialysis fairly well. PHYSICAL EXAMINATION: On examination today, she is comfortable. Blood pressure 106/58, heart rate 74 per minute. Patient is afebrile. Examination of the heart S1, S2. Examination of the lungs, bilateral breath sounds are heard. Abdomen is soft, obese, nontender. Examination of lower extremities shows no significant edema. 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 She is moving all 4 extremities. She is very pleasant. LAB: Show sodium 130, potassium 3.4, BUN 59, creatinine 6.2. The peritoneal fluid showed 8 WBCs, RBCs 2. ASSESSMENT: 1. End-stage renal disease maintained on peritoneal dialysis, status post temporary hemodialysis while patient was in the rehab. 2. Staph bacteremia, possibly related to IJ PermCath. 3. Hypokalemia, will replace. 4. Status post recent left knee arthroplasty, being evaluated by Orthopedics, maintained on antibiotics. PLAN: Replace potassium. Continue with peritoneal dialysis. Remove IJ PermCath. MMODL / IJN: [id number] /
[2020-10-18 16:01] LABS: African American GFR (CKD) 8.4 (60.0-200.0); Anion Gap 22.8 mmol/L (4.00-12.00); BUN/Creat Ratio 10.67 Ratio (12.00-20.00); Calcium 8.6 mg/dL (8.7-10.3); Carbon Dioxide 16.2 mmol/L (21.6-31.8); Non-African American GFR(CKD) 7.2 (60.0-200.0); Potassium 3.7 mmol/L (3.5-5.5)
[2020-10-18] MEDS ORDERED: HEPARIN SODIUM PORCINE INTRAPERIT ONE (18:00)
[2020-10-18] MEDS ORDERED: DIALYSIS DEX INTRAPERIT ONE (18:00)
[2020-10-18] MEDS: ATORVASTATIN 10 MG TAB PO SCH (22:00)
[2020-10-19] MEDS: DIALYSIS (PERIT 1.5%) 2,500 ML 37.5 G/2,500 ML BAG INTRAPERIT SCH ×4 (00:52→18:11)
[2020-10-19] MEDS: SEVELAMER 800 MG TAB PO SCH ×2 (08:35→18:11)
[2020-10-19] MEDS: LEVOTHYROXINE 112 MCG TAB PO SCH (08:35)
[2020-10-19] MEDS: FUROSEMIDE 40 MG TAB PO SCH ×2 (08:35→19:22)
[2020-10-19] MEDS: FERROUS SULFATE 325 MG TAB PO SCH (08:35)
[2020-10-19] MEDS: amLODIPine 2.5 MG TAB PO SCH (08:35)
[2020-10-19] MEDS: allopurinoL 100 MG TAB PO SCH (08:35)
--- NOTE | 2020-10-19 09:22 | P.PN ---
Subjective Progress Note Date: 10/19/20 Principal diagnosis: Sepsis The patient notes some improvement. She denies significant pain involving her left knee. Objective - Vital Signs Vital signs: Vital Signs Temp 98.4 F 10/19/20 08:00 Pulse 87 10/19/20 08:00 Resp 16 10/19/20 08:00 BP 117/72 10/19/20 08:00 Pulse Ox 97 10/19/20 08:00 Intake & Output 10/18/20 10/19/20 10/19/20 18:59 06:59 18:59 Intake Total 120 236 Balance 120 236 Weight 91.626 kg Intake: Intake, IV Titration 120 Amount Sodium Chloride 0.9% 1, 120 000 ml @ 20 mls/hr IV . Q24H KAYLIN Rx#:[id number] Oral 236 Other: Voiding Method CAPD CAPD # Voids 1 - Exam Left knee incision clean, dry, intact No warmth or erythema left lower extremity No joint line tenderness left knee Mild erythema dorsum right hand over the fourth and fifth MCP joints and pro ximal phalanx. Nontender flexor surface right hand 4 x 4 mm wound right cervical with mild purulence/erythema - Neck Neck: Present: other - Labs CBC & Chem 7: 10/18/20 05:38 10/18/20 05:38 Labs: Abnormal Lab Results - Last 24 Hours (Table) 10/17/20 Range/Units 14:09 Sodium 133 L (135-145) mmol/L Chloride 94 L (96-109) mmol/L Carbon Dioxide 16.2 L (21.6-31.8) mmol/L Anion Gap 22.80 H (4.00-12.00) mmol/L BUN 64.0 H (9.0-27.0) mg/dL Creatinine 6.0 H (0.6-1.5) mg/dL Est GFR (CKD-EPI)AfAm 8.4 L (60.0-200.0) Est GFR (CKD-EPI)NonAf 7.2 L (60.0-200.0) BUN/Creatinine Ratio 10.67 L (12.00-20.00) Ratio Glucose 269 H (70-110) mg/dL Calcium 8.6 L (8.7-10.3) mg/dL Microbiology - Last 24 Hours (Table) 10/17/20 22:43 Gram Stain - Preliminary Peritoneal Fluid Body Fluid Culture - Preliminary 10/18/20 06:25 Blood Culture Gram Stain - Preliminary Blood Blood Culture - Preliminary Staphylococcus aureus 10/16/20 20:23 Blood Culture Gram Stain - Final Blood Blood Culture - Final Staphylococcus aureus 10/18/20 05:38 Blood Culture - Final Blood 10/16/20 00:47 Urine Culture - Final Urine,Voided Assessment and Plan Assessment: Sepsis likely secondary to right cervical abscess from indwelling catheter Status post left total knee arthroplasty Right hand cellulitis Plan: Continue IV antibiotics per infectious disease for MSSA sepsis Consult PT/OT to begin mobilizing with a walker, weightbearing as tolerated left leg with assistance Time with Patient: Less than 30
--- NOTE | 2020-10-19 14:02 | PN ---
PROGRESS NOTE Patient is seen for followup for end-stage renal disease. The patient is normally maintained on peritoneal dialysis and she was switched over to hemodialysis after left knee arthroplasty when she was discharged to rehab. She was readmitted with fever and blood cultures are growing Staph aureus which is MSSA. No significant evidence of infection on the knee and patient's dialysis catheter was removed yesterday. She is tolerating peritoneal dialysis fairly well. She was noted to have fibrin and therefore heparin was added in the bag yesterday. PHYSICAL EXAMINATION: On examination today, blood pressure was 98/67, heart rate 95 per minute, she is afebrile. Examination of the heart S1, S2. Examination of the lungs, bilateral breath sounds are heard. Abdomen is soft, nontender. Examination of lower extremities shows no significant edema. The patient has redness at the base of the right ring finger. No obvious wound is seen. SENIOR SALES REPRESENTATIVE exam, patient is developmentally delayed, but no motor deficits noted. LAB: Show sodium 130, potassium 3.4, chloride 95, BUN 59, serum creatinine 6.21. The peritoneal fluid showed no evidence of increased cell count. Hemoglobin was 8.4 g/dL. ASSESSMENT: 1. End-stage renal disease, on peritoneal dialysis with temporary hemodialysis when patient was discharged to rehab. 2. MSSA bacteremia, most likely related to the IJ PermCath which has been removed. The left knee arthroplasty incision site is intact and clear and dry. 3. Status post recent left knee arthroplasty. 4. Anemia multifactorial, mostly anemia of chronic disease. Will add Aranesp. 5. Hypothyroidism. 6. Patient with developmental delay. 7. Chronic kidney disease mineral bone disorder, maintained on Renvela. PLAN: Add Aranesp. Repeat blood cultures and continue with antibiotics. MMODL / IJN: [id number] /
--- NOTE | 2020-10-19 15:21 | P.PN ---
Subjective 55-year-old female was brought to the hospital because of fever and generalized weakness. Patient had a recent left knee surgery on 09/25/2020 and the patient has been unable to bear weight for last few days on the left knee. Patient also has recurrent dialysis catheter and the patient's dialysate was cloudy. Patient also has right-sided permacath with the some redness around the neck area. Patient denied any cough dysuria. Urine analysis is bit abnormal with some large leukocyte esterase and WBC in the urine. Patient does have increased swelling in the left leg where she had a surgery of the surgical site appears to be clean patient the does have some pain with movement of this leg. The dialysis catheter was placed about 3 weeks ago during her hospitalization just before discharge. 10/18/2020 Patient wasn't evaluated by infectious disease and patient is being continued on vancomycin patient had a low-grade fever last night. A concern is permacath infection. Patient also has a peroneal dialysis catheter peritoneal fluid is being sent for analysis. Patient also had a right knee surgery possibility that his right knee , the source of infection is low. We'll 10/19/2020 Patient has persistent bacteremia patient has MSSA, patient was switched to ceftezole and vancomycin was discontinued. Because of persistent bacteremia permacath was discontinued yesterday. Obtaining repeat blood cultures for today and tomorrow morning. Constitutional: Denied any fatigue denied any fever. Cardio vascular: denied any chest pain, palpitations Gastrointestinal denied any nausea vomiting Pulmonary: Denied any shortness of breath cough Neurologic denied any new focal deficits All inpatient medications were reviewed and appropriate changes in these medications as dictated in the interval history and assessment and plan. Objective - Vital Signs Vital signs: Vital Signs Temp 97.8 F 10/19/20 14:00 Pulse 112 H 10/19/20 14:00 Resp 16 10/19/20 14:00 BP 99/66 10/19/20 14:00 Pulse Ox 96 10/19/20 14:00 Intake & Output 10/18/20 10/19/20 10/19/20 18:59 06:59 18:59 Intake Total 120 354 Balance 120 354 Weight 91.626 kg Intake: Intake, IV Titration 120 Amount Sodium Chloride 0.9% 1, 120 000 ml @ 20 mls/hr IV . Q24H [facility] Rx#:[id number] Oral 354 Other: Voiding Method CAPD CAPD CAPD # Voids 1 - Exam PHYSICAL EXAMINATION: GENERAL: The patient is alert and oriented x3-3, not in any acute distress. Well developed, well nourished. HEENT: Pupils are round and equally reacting to light. EOMI. No scleral icterus. No conjunctival pallor. Normocephalic, atraumatic. No pharyngeal erythema. No thyromegaly. CARDIOVASCULAR: S1 and S2 present. No murmurs, rubs, or gallops. PULMONARY: Chest is clear to auscultation, no wheezing or crackles. ABDOMEN: Soft, nontender, nondistended, normoactive bowel sounds. No palpable organomegaly. MUSCULOSKELETAL: Left knee swelling as mentioned above EXTREMITIES: No cyanosis, clubbing, or pedal edema. NEUROLOGICAL: Gross neurological examination did not reveal any focal deficits. SKIN: Surgical site in the left knee is clean . - Labs CBC & Chem 7: 10/18/20 05:38 10/18/20 05:38 Labs: Abnormal Lab Results - Last 24 Hours (Table) 10/17/20 Range/Units 14:09 Sodium 133 L (135-145) mmol/L Chloride 94 L (96-109) mmol/L Carbon Dioxide 16.2 L (21.6-31.8) mmol/L Anion Gap 22.80 H (4.00-12.00) mmol/L BUN 64.0 H (9.0-27.0) mg/dL Creatinine 6.0 H (0.6-1.5) mg/dL Est GFR (CKD-EPI)AfAm 8.4 L (60.0-200.0) Est GFR (CKD-EPI)NonAf 7.2 L (60.0-200.0) BUN/Creatinine Ratio 10.67 L (12.00-20.00) Ratio Glucose 269 H (70-110) mg/dL Calcium 8.6 L (8.7-10.3) mg/dL Microbiology - Last 24 Hours (Table) 10/17/20 22:43 Gram Stain - Preliminary Peritoneal Fluid Body Fluid Culture - Preliminary 10/18/20 06:25 Blood Culture Gram Stain - Preliminary Blood Blood Culture - Preliminary Staphylococcus aureus 10/16/20 20:23 Blood Culture Gram Stain - Final Blood Blood Culture - Final Staphylococcus aureus 10/18/20 05:38 Blood Culture - Final Blood 10/16/20 00:47 Urine Culture - Final Urine,Voided Assessment and Plan Plan: -Sepsis secondary to bacteremia , patient had persistent bacteremia secondary to permacath which was removed. Patient also has paternal dialysis catheter. Patient had a recent left knee surgery although that doesn't appear to be a source of infection -Hyponatremia: Secondary to renal failure patient is on peritoneal dialysis, sodium is improving -Leukocytosis secondary to sepsis -Hyperlipidemia -End-stage renal disease on hemodialysis. -Hypertension DVT prophylaxis with heparin
[2020-10-19] MEDS: DARBEPOETIN ALFA 60 MCG/0.3 ML SYRINGE SQ SCH (18:11)
--- NOTE | 2020-10-19 19:02 | PN ---
PROGRESS NOTE DATE OF SERVICE: 10/19/2020 REASON FOR FOLLOWUP: MSSA bacteremia possible PermCath infection. INTERVAL HISTORY: Patient is currently afebrile. The patient is breathing comfortably. Patient denies any chest pain or cough. No vomiting. No abdominal pain or diarrhea. The right sided PermACath has been discontinued. PHYSICAL EXAMINATION: Blood pressure 99/56, pulse of 112, temp 97.8. She is 92% on room air. General description: The patient is a middle-aged female lying in in no distress. Respiratory system: Unlabored breathing. Clear to auscultation anteriorly. Heart S1, S2. Regular rate and rhythm. ABDOMEN: Soft, no tenderness. LABS: Hemoglobin 8.8, white count 13.7, BUN of 59, creatinine 6.21. DIAGNOSTIC IMPRESSION AND PLAN: Patient with MSSA bacteremia concerning for pulmonary infection has been discontinued. Patient antibiotic switched to cefazolin. Daily blood cultures to document clearance of bacteremia. Discharge antibiotic clinical response and workup. Continue supportive care. MMODL / IJN: [id number] /
[2020-10-19] MEDS: ATORVASTATIN 10 MG TAB PO SCH (20:34)
[2020-10-19] MEDS: SODIUM CHLORIDE 0.9% 1,000 ML IV SCH (20:34)
[2020-10-20] MEDS: DIALYSIS (PERIT 1.5%) 2,500 ML 37.5 G/2,500 ML BAG INTRAPERIT SCH ×3 (00:54→18:12)
[2020-10-20] MEDS: ACETAMINOPHEN TAB 325 MG TAB PO PRN ×3 (01:25→14:01)
[2020-10-20] MEDS: LEVOTHYROXINE 112 MCG TAB PO SCH (05:29)
--- NOTE | 2020-10-20 07:02 | P.PN ---
Subjective Progress Note Date: 10/20/20 Principal diagnosis: This is a 55-year-old female known to us with ESRD who was initially on peritoneal dialysis, was switched over to hemodialysis as she was discharged after left knee surgery to rehab. She came back with bacteremia and had the permacath taken out. Pertinent dialysis resumed Overnight she has been having 1.5% 2500 mL in and out without much ultrafiltration. Patient denied any complaints her appetite is somewhat poor denies any fever chills cough shortness of breath nausea vomiting. Currently on exam she is awake alert oriented Objective - Vital Signs Vital signs: Vital Signs Temp 98.6 F 10/20/20 01:00 Pulse 102 H 10/20/20 01:00 Resp 18 10/20/20 01:00 BP 120/73 10/20/20 01:00 Pulse Ox 92 L 10/20/20 01:00 Intake & Output 10/19/20 10/19/20 10/20/20 06:59 18:59 06:59 Intake Total 120 590 776 Balance 120 590 776 Intake: Intake, IV Titration 120 240 Amount Sodium Chloride 0.9% 1, 120 240 000 ml @ 20 mls/hr IV . Q24H [facility] Rx#:[id number] Oral 590 536 Other: Voiding Method CAPD CAPD CAPD # Voids 1 1 HEENT exam no JVP neck is supple no facial asymmetry Lungs are clear to auscultation good air entry bilaterally Heart sounds unremarkable for any murmur rub gallop Abdomen soft nontender slightly protuberant Extremity exam was no edema Left knee scar is clear Neurologically awake alert oriented - Labs CBC & Chem 7: 10/18/20 05:38 10/18/20 05:38 Labs: Microbiology - Last 24 Hours (Table) 10/19/20 14:44 Blood Culture Gram Stain - Preliminary Blood 10/19/20 14:44 Blood Culture - Final Blood 10/18/20 06:25 Blood Culture Gram Stain - Final Blood Blood Culture - Final Staphylococcus aureus 10/17/20 22:43 Gram Stain - Preliminary Peritoneal Fluid Body Fluid Culture - Preliminary Assessment and Plan Assessment: Impression 1. ESRD on peritoneal dialysis. 2. Admitted with MSSA bacteremia because of permacath that was inserted because the rehab transfer and had to be taken out. 3. Status post recent left knee surgery 4. Anemia of chronic illness hemoglobin is 8.4 5. Mild hypernatremia and hypokalemia secondary to excess free water intake, and poor intake and dialysis taking out some of the potassium 6. Slightly low blood pressure in the 99/66 to 120/73 Recommendation 1. Discontinue amlodipine 2.5 mg. 2. Use 2.5% 1.5% alternating 2500 mL exchanges 3. Watch potassium and sodium and blood pressures
[2020-10-20] MEDS: FUROSEMIDE 40 MG TAB PO SCH ×2 (07:33→18:15)
[2020-10-20] MEDS: FERROUS SULFATE 325 MG TAB PO SCH (07:33)
[2020-10-20] MEDS: amLODIPine 2.5 MG TAB PO SCH (07:33)
[2020-10-20] MEDS: allopurinoL 100 MG TAB PO SCH (07:33)
[2020-10-20] MEDS: SEVELAMER 800 MG TAB PO SCH ×2 (07:33→18:15)
[2020-10-20 09:25] LABS: African American GFR (CKD) 8 (>60 ml/min/1.73 sqM); Anion Gap 15 mmol/L; Blood Urea Nitrogen 54 mg/dL (7-17); Calcium 9.3 mg/dL (8.4-10.2); Carbon Dioxide 21 mmol/L (22-30); Chloride 99 mmol/L (98-107); Glucose 218 mg/dL (74-99); Non-African American GFR(CKD) 7 (>60 ml/min/1.73 sqM); Potassium 3.4 mmol/L (3.5-5.1); Sodium 135 mmol/L (137-145)
[2020-10-20] MEDS: DIALYSIS (PERIT 2.5%) 2,500 ML 62.5 G/2,500 ML BAG INTRAPERIT SCH (12:38)
--- NOTE | 2020-10-20 16:13 | P.PN ---
Subjective 55-year-old female was brought to the hospital because of fever and generalized weakness. Patient had a recent left knee surgery on 09/25/2020 and the patient has been unable to bear weight for last few days on the left knee. Patient also has recurrent dialysis catheter and the patient's dialysate was cloudy. Patient also has right-sided permacath with the some redness around the neck area. Patient denied any cough dysuria. Urine analysis is bit abnormal with some large leukocyte esterase and WBC in the urine. Patient does have increased swelling in the left leg where she had a surgery of the surgical site appears to be clean patient the does have some pain with movement of this leg. The dialysis catheter was placed about 3 weeks ago during her hospitalization just before discharge. 10/18/2020 Patient wasn't evaluated by infectious disease and patient is being continued on vancomycin patient had a low-grade fever last night. A concern is permacath infection. Patient also has a peroneal dialysis catheter peritoneal fluid is being sent for analysis. Patient also had a right knee surgery possibility that his right knee , the source of infection is low. We'll 10/19/2020 Patient has persistent bacteremia patient has MSSA, patient was switched to ceftezole and vancomycin was discontinued. Because of persistent bacteremia permacath was discontinued yesterday. Obtaining repeat blood cultures for today and tomorrow morning. 10/20/2020 Serum sodium improved to 135 potassium is 3.4 which will be replaced. Patient is a peroneal dialysis dependent presents in creatinine is 5.92. Patient can use to have bacteremia. Infectious disease is following the patient. Constitutional: Denied any fatigue denied any fever. Cardio vascular: denied any chest pain, palpitations Gastrointestinal denied any nausea vomiting Pulmonary: Denied any shortness of breath cough Neurologic denied any new focal deficits All inpatient medications were reviewed and appropriate changes in these medications as dictated in the interval history and assessment and plan. Objective - Vital Signs Vital signs: Vital Signs Temp 97.8 F 10/20/20 14:00 Pulse 80 10/20/20 14:00 Resp 17 10/20/20 14:00 BP 101/66 10/20/20 14:00 Pulse Ox 97 10/20/20 14:00 Intake & Output 10/19/20 10/20/20 10/20/20 18:59 06:59 18:59 Intake Total 590 776 Balance 590 776 Intake: Intake, IV Titration 240 Amount Sodium Chloride 0.9% 1, 240 000 ml @ 20 mls/hr IV . Q24H [facility] Rx#:[id number] Oral 590 536 Other: Voiding Method CAPD CAPD CAPD # Voids 1 3 # Bowel Movements 2 - Exam PHYSICAL EXAMINATION: GENERAL: The patient is alert and oriented x3-3, not in any acute distress. Well developed, well nourished. HEENT: Pupils are round and equally reacting to light. EOMI. No scleral icterus. No conjunctival pallor. Normocephalic, atraumatic. No pharyngeal erythema. No thyromegaly. CARDIOVASCULAR: S1 and S2 present. No murmurs, rubs, or gallops. PULMONARY: Chest is clear to auscultation, no wheezing or crackles. ABDOMEN: Soft, nontender, nondistended, normoactive bowel sounds. No palpable organomegaly. MUSCULOSKELETAL: Left knee swelling as mentioned above EXTREMITIES: No cyanosis, clubbing, or pedal edema. NEUROLOGICAL: Gross neurological examination did not reveal any focal deficits. SKIN: Surgical site in the left knee is clean . - Labs CBC & Chem 7: 10/18/20 05:38 10/20/20 08:07 Labs: Abnormal Lab Results - Last 24 Hours (Table) 10/20/20 Range/Units 08:07 Sodium 135 L (137-145) mmol/L Potassium 3.4 L (3.5-5.1) mmol/L Carbon Dioxide 21 L (22-30) mmol/L BUN 54 H (7-17) mg/dL Creatinine 5.92 H (0.52-1.04) mg/dL Glucose 218 H (74-99) mg/dL Microbiology - Last 24 Hours (Table) 10/17/20 22:43 Gram Stain - Preliminary Peritoneal Fluid Body Fluid Culture - Preliminary 10/19/20 14:44 Blood Culture Gram Stain - Preliminary Blood 10/19/20 14:44 Blood Culture - Final Blood 10/18/20 06:25 Blood Culture Gram Stain - Final Blood Blood Culture - Final Staphylococcus aureus Assessment and Plan Plan: -Sepsis secondary to bacteremia , patient had persistent bacteremia secondary to permacath which was removed. Patient also has paternal dialysis catheter. Patient had a recent left knee surgery although that doesn't appear to be a source of infection. Patient had persistent bacteremia in spite of it of removal of permacath. Will repeat blood cultures again consideration for DANIELLE as per infectious disease -Hyponatremia: Secondary to renal failure patient is on peritoneal dialysis, sodium is improving -Leukocytosis secondary to sepsis -Hyperlipidemia -End-stage renal disease on hemodialysis. -Hypertension DVT prophylaxis with heparin
--- NOTE | 2020-10-20 19:05 | PN ---
PROGRESS NOTE DATE OF SERVICE: 10/20/2020 REASON FOR FOLLOWUP: MSSA bacteremia. INTERVAL HISTORY: Patient is afebrile. The patient is breathing comfortably. Patient denies having any chest pain or shortness of breath. Occasional cough, not bringing up any sputum. No abdominal pain or diarrhea. PHYSICAL EXAMINATION: Blood pressure 101/66, pulse of 80, temperature 97.8. She is 97% on room air. General description is a middle-aged female lying in in no distress. Respiratory system: Unlabored breathing, clear to auscultation anteriorly. Heart S1, S2. Regular rate and rhythm. Abdomen soft, no tenderness. Extremities: No edema of the feet. LABS: Blood culture from October 19 still positive. DIAGNOSTIC IMPRESSION AND PLAN: Patient with MSSA bacteremia concerning for the ( ) has been discontinued. Blood culture still positive with persistent bacteremia and vascular source needs to be ruled out. An echocardiogram will be ordered. Continue with cefazolin. Family at the bedside, their questions were answered. MMODL / IJN: [id number] /
[2020-10-20] MEDS: SODIUM CHLORIDE 0.9% 1,000 ML IV SCH (21:36)
[2020-10-20] MEDS: ATORVASTATIN 10 MG TAB PO SCH (21:36)
[2020-10-20 22:37] LABS: % Iron Saturation 19.77 (12.00-45.00); Iron 34 ug/dL (50-170); Total Iron Binding Capacity 172 ug/dL (228-460)
[2020-10-21] MEDS: DIALYSIS (PERIT 2.5%) 2,500 ML 62.5 G/2,500 ML BAG INTRAPERIT SCH ×3 (00:30→23:19)
[2020-10-21] MEDS: DIALYSIS (PERIT 1.5%) 2,500 ML 37.5 G/2,500 ML BAG INTRAPERIT SCH ×2 (05:36→18:01)
[2020-10-21] MEDS: LEVOTHYROXINE 112 MCG TAB PO SCH (05:36)
[2020-10-21] MEDS: FERROUS SULFATE 325 MG TAB PO SCH (07:17)
[2020-10-21] MEDS: allopurinoL 100 MG TAB PO SCH (07:17)
[2020-10-21] MEDS: SEVELAMER 800 MG TAB PO SCH ×2 (07:17→16:49)
[2020-10-21] MEDS: FUROSEMIDE 40 MG TAB PO SCH ×2 (07:18→16:49)
[2020-10-21] MEDS: amLODIPine 2.5 MG TAB PO SCH (07:18)
--- NOTE | 2020-10-21 08:25 | P.PN ---
Subjective Progress Note Date: 10/21/20 Principal diagnosis: This is a 55-year-old female known to us with ESRD who was initially on peritoneal dialysis, had left knee surgery and because of transferred to rehab was switched over to hemodialysis. She came back with bacteremia and had the permacath taken out. Peritoneal dialysis resumed. Patient denied any complaints her appetite is somewhat poor denies any fever [place] cough shortness of breath nausea vomiting. Her past history significant for developmental delay Objective - Vital Signs Vital signs: Vital Signs Temp 98.1 F 10/21/20 07:53 Pulse 69 10/21/20 07:53 Resp 18 10/21/20 07:53 BP 130/78 10/21/20 07:53 Pulse Ox 98 10/21/20 07:53 Intake & Output 10/20/20 10/21/20 10/21/20 18:59 06:59 18:59 Intake Total 650 Balance 650 Intake: Intake, IV Titration 50 Amount ceFAZolin 2 gm In Sodium 50 Chloride 0.9% 50 ml @ 100 mls/hr IVPB Q12HR [facility] Rx #:[id number] Oral 600 Other: Voiding Method CAPD CAPD # Voids 3 # Bowel Movements 2 On examination is awake alert. Somewhat anxious HEENT exam no JVP neck is supple no facial asymmetry Lungs are clear to auscultation good air entry bilaterally Heart sounds unremarkable for any murmur rub gallop Abdomen soft nontender Extremity exam was trace edema Neurologically awake alert oriented - Labs CBC & Chem 7: 10/18/20 05:38 10/20/20 08:07 Labs: Abnormal Lab Results - Last 24 Hours (Table) 10/20/20 Range/Units 08:07 Sodium 135 L (137-145) mmol/L Potassium 3.4 L (3.5-5.1) mmol/L Carbon Dioxide 21 L (22-30) mmol/L BUN 54 H (7-17) mg/dL Creatinine 5.92 H (0.52-1.04) mg/dL Glucose 218 H (74-99) mg/dL Iron 34 L (50-170) ug/dL TIBC 172 L (228-460) ug/dL Microbiology - Last 24 Hours (Table) 10/19/20 14:44 Blood Culture Gram Stain - Preliminary Blood Blood Culture - Preliminary Presumptive Staph aureus 10/17/20 22:43 Gram Stain - Preliminary Peritoneal Fluid Body Fluid Culture - Preliminary 10/19/20 14:44 Blood Culture - Final Blood Assessment and Plan Assessment: Impression 1. ESRD on peritoneal dialysis. Had to be switched over to hemodialysis after knee surgery and transferred to rehab, had a permacath placed 2. Admitted with MSSA bacteremia secondary to permacath and had to be taken out. last blood culture positive on 10/19/2020. 3. resumed peritoneal dialysis. Currently on 1.5% 2.5% 2500 mL 4 exchanges, ultrafiltration is 3. Status post recent left knee surgery 4. Anemia of chronic illness hemoglobin is 8.4, iron saturation is 19% dated 10/20/2020 5. Mild hypernatremia and hypokalemia secondary to excess free water intake, and poor intake and dialysis taking out some of the potassium. Improved sodium 1:30 milliequivalents to 135 this morning but the potassium remains at 3.4 6. Slightly low blood pressure in the 90s to 130 systolic, off of amlodipine 2.5 yesterday Recommendation 1. Repeat blood cultures 2. Continue 1.5% 2.4% alternating 2500 mL 4 exchanges per day 3. Watch potassium and sodium and blood pressures, hemoglobin. 4. Will hold off IV iron given her bacteremia, as intravenous iron and may worsen sepsis
--- NOTE | 2020-10-21 09:17 | P.PN ---
Subjective 55-year-old female was brought to the hospital because of fever and generalized weakness. Patient had a recent left knee surgery on 09/25/2020 and the patient has been unable to bear weight for last few days on the left knee. Patient also has recurrent dialysis catheter and the patient's dialysate was cloudy. Patient also has right-sided permacath with the some redness around the neck area. Patient denied any cough dysuria. Urine analysis is bit abnormal with some large leukocyte esterase and WBC in the urine. Patient does have increased swelling in the left leg where she had a surgery of the surgical site appears to be clean patient the does have some pain with movement of this leg. The dialysis catheter was placed about 3 weeks ago during her hospitalization just before discharge. 10/18/2020 Patient wasn't evaluated by infectious disease and patient is being continued on vancomycin patient had a low-grade fever last night. A concern is permacath infection. Patient also has a peroneal dialysis catheter peritoneal fluid is being sent for analysis. Patient also had a right knee surgery possibility that his right knee , the source of infection is low. We'll 10/19/2020 Patient has persistent bacteremia patient has MSSA, patient was switched to ceftezole and vancomycin was discontinued. Because of persistent bacteremia permacath was discontinued yesterday. Obtaining repeat blood cultures for today and tomorrow morning. 10/20/2020 Serum sodium improved to 135 potassium is 3.4 which will be replaced. Patient is a peroneal dialysis dependent presents in creatinine is 5.92. Patient can use to have bacteremia. Infectious disease is following the patient. 10/21/2020 Patient the blood cultures are positive from fourth around have any other blood cultures available I did order to be blood cultures for today and tomorrow morning. And patient is afebrile. Constitutional: Denied any fatigue denied any fever. Cardio vascular: denied any chest pain, palpitations Gastrointestinal denied any nausea vomiting Pulmonary: Denied any shortness of breath cough Neurologic denied any new focal deficits All inpatient medications were reviewed and appropriate changes in these medications as dictated in the interval history and assessment and plan. Objective - Vital Signs Vital signs: Vital Signs Temp 98.1 F 10/21/20 07:53 Pulse 69 10/21/20 07:53 Resp 18 10/21/20 07:53 BP 130/78 06/06/21 07:53 Pulse Ox 98 10/21/20 07:53 Intake & Output 10/20/20 10/21/20 10/21/20 18:59 06:59 18:59 Intake Total 650 Balance 650 Intake: Intake, IV Titration 50 Amount ceFAZolin 2 gm In Sodium 50 Chloride 0.9% 50 ml @ 100 mls/hr IVPB Q12HR [facility] Rx #:[id number] Oral 600 Other: Voiding Method CAPD CAPD # Voids 3 # Bowel Movements 2 - Exam PHYSICAL EXAMINATION: GENERAL: The patient is alert and oriented x2-3, not in any acute distress. Well developed, well nourished. HEENT: Pupils are round and equally reacting to light. EOMI. No scleral icterus. No conjunctival pallor. Normocephalic, atraumatic. No pharyngeal erythema. No thyromegaly. CARDIOVASCULAR: S1 and S2 present. No murmurs, rubs, or gallops. PULMONARY: Chest is clear to auscultation, no wheezing or crackles. ABDOMEN: Soft, nontender, nondistended, normoactive bowel sounds. No palpable organomegaly. MUSCULOSKELETAL: Left knee swelling as mentioned above EXTREMITIES: No cyanosis, clubbing, or pedal edema. NEUROLOGICAL: Gross neurological examination did not reveal any focal deficits. SKIN: Surgical site in the left knee is clean . - Labs CBC & Chem 7: 10/18/20 05:38 10/20/20 08:07 Labs: Abnormal Lab Results - Last 24 Hours (Table) 10/20/20 Range/Units 08:07 Sodium 135 L (137-145) mmol/L Potassium 3.4 L (3.5-5.1) mmol/L Carbon Dioxide 21 L (22-30) mmol/L BUN 54 H (7-17) mg/dL Creatinine 5.92 H (0.52-1.04) mg/dL Glucose 218 H (74-99) mg/dL Iron 34 L (50-170) ug/dL TIBC 172 L (228-460) ug/dL Microbiology - Last 24 Hours (Table) 10/19/20 14:44 Blood Culture Gram Stain - Preliminary Blood Blood Culture - Preliminary Presumptive Staph aureus 10/17/20 22:43 Gram Stain - Preliminary Peritoneal Fluid Body Fluid Culture - Preliminary 10/19/20 14:44 Blood Culture - Final Blood Assessment and Plan Plan: -Sepsis secondary to bacteremia , patient had persistent bacteremia secondary to permacath which was removed. Patient also has paternal dialysis catheter. Patient had a recent left knee surgery although that doesn't appear to be a source of infection. Patient had persistent bacteremia in spite of it of removal of permacath. Will repeat blood cultures again consideration for DANIELLE as per infectious disease -Hyponatremia: Secondary to renal failure patient is on peritoneal dialysis, sodium is improving -Leukocytosis secondary to sepsis -Hyperlipidemia -End-stage renal disease on hemodialysis. -Hypertension DVT prophylaxis with heparin
[2020-10-21 12:47] LABS: African American GFR (CKD) 9.3 (60.0-200.0); Anion Gap 14.8 mmol/L (4.00-12.00); BUN/Creat Ratio 9.64 Ratio (12.00-20.00); Calcium 8.3 mg/dL (8.7-10.3); Carbon Dioxide 22.2 mmol/L (21.6-31.8); Potassium 4.1 mmol/L (3.5-5.5)
--- NOTE | 2020-10-21 19:06 | PN ---
PROGRESS NOTE DATE OF SERVICE: 10/21/2020 REASON FOR FOLLOWUP: MSSA bacteremia secondary to PermACath infection. INTERVAL HISTORY: The patient is afebrile. The patient is breathing comfortably. Patient denies having any chest pain or shortness of breath, cough, no abdominal pain and no diarrhea. PHYSICAL EXAMINATION: Blood pressure 111/71, pulse 97, temp 97.7. She is 93% on room air. General description: The patient is a middle-aged female lying in in no distress. Respiratory system: Unlabored breathing, clear to auscultation anteriorly. Heart S1, S2. Regular rate and rhythm. ABDOMEN: Soft, no tenderness. EXTREMITIES: No edema of the feet. LABS: BUN is 53, creatinine 5.5. CBC was not done today. Blood cultures from October 20, negative so far. DIAGNOSTIC IMPRESSION AND PLAN: Patient with MSSA bacteremia secondary to PermACath infection, has been discontinued. Blood cultures from yesterday are negative. If they remain to be negative, I will send her down to get a midline. She will need a total of 2 weeks of cefazolin from negative blood cultures and close outpatient followup. MMODL / IJN: [id number] /
[2020-10-21] MEDS: ATORVASTATIN 10 MG TAB PO SCH (21:08)
[2020-10-21] MEDS: SODIUM CHLORIDE 0.9% 1,000 ML IV SCH (21:08)
[2020-10-22] MEDS: DIALYSIS (PERIT 1.5%) 2,500 ML 37.5 G/2,500 ML BAG INTRAPERIT SCH ×2 (05:28→18:15)
[2020-10-22] MEDS: LEVOTHYROXINE 112 MCG TAB PO SCH (06:28)
[2020-10-22] MEDS: SEVELAMER 800 MG TAB PO SCH ×2 (07:28→16:37)
[2020-10-22] MEDS: amLODIPine 2.5 MG TAB PO SCH (07:28)
[2020-10-22] MEDS: FUROSEMIDE 40 MG TAB PO SCH ×2 (07:29→16:37)
[2020-10-22] MEDS: allopurinoL 100 MG TAB PO SCH (07:29)
[2020-10-22] MEDS: FERROUS SULFATE 325 MG TAB PO SCH (07:29)
[2020-10-22 10:52] LABS: HCT 28.2 % (37.2-46.3); HGB 8.6 g/dL (12.0-15.0); MCH 31.6 pg (27.0-32.0); MCHC 30.5 g/dL (32.0-37.0); MCV 103.7 fL (80.0-97.0); Mean Platelet Volume 11.1 fL (9.5-12.2); Platelet Count 449 X 10*3/uL (140-440); RBC 2.72 X 10*6/uL (4.10-5.20); RDW 17.1 % (11.5-14.5); WBC 17.53 X 10*3/uL (4.50-10.00)
[2020-10-22 12:20] LABS: Band Neutrophils % 1 %; Basophils # (M) 0 X 10*3/uL (0.00-0.10); Eosinophils # (M) 0 X 10*3/uL (0.04-0.35); Lymphocytes # (M) 1.58 X 10*3/uL (0.90-5.00); Metamyelocytes % 2 % (0-0); Monocytes # (M) 0.35 X 10*3/uL (0.20-1.00); Myelocytes % 2 % (0-0); Neutrophils % (M) 84 %
[2020-10-22] MEDS: DIALYSIS (PERIT 2.5%) 2,500 ML 62.5 G/2,500 ML BAG INTRAPERIT SCH (12:26)
--- NOTE | 2020-10-22 14:36 | PN ---
PROGRESS NOTE DATE OF SERVICE: 10/22/2020 REASON FOR FOLLOWUP: MSSA bacteremia secondary to PermCath infection. INTERVAL HISTORY: Patient is afebrile. Patient is breathing comfortably on room air. Denies any chest pain or cough. No abdominal pain or diarrhea. PHYSICAL EXAMINATION: VITAL SIGNS: Blood pressure 110/70 with a pulse of 83, temperature 98.3, she is 93% on room air. GENERAL DESCRIPTION: An middle-aged female lying in bed in no distress. RESPIRATORY SYSTEM: Unlabored breathing, clear to auscultation anteriorly. HEART: S1, S2. Regular rate and rhythm. ABDOMEN: Soft, no tenderness. LABS: Hemoglobin is 8.1, white count up to 17.53. Blood culture from 10/20 and 10/22 has been negative. DIAGNOSTIC IMPRESSION AND PLAN: Patient with MSSA bacteremia. PermCath has been discontinued. Slight worsening white count is slightly concerning and will be monitored closely. Continue cefazolin. She will need a Medline for outpatient antibiotics. Continue supportive care. MMODL / IJN: [id number] /
[2020-10-22 15:02] LABS: African American GFR (CKD) 8.4 (60.0-200.0); Anion Gap 18.6 mmol/L (4.00-12.00); BUN/Creat Ratio 8.33 Ratio (12.00-20.00); C Reactive Protein 23.7 mg/dL (0.0-0.8); Calcium 8.8 mg/dL (8.7-10.3); Carbon Dioxide 22.4 mmol/L (21.6-31.8); Non-African American GFR(CKD) 7.2 (60.0-200.0); Potassium 3.9 mmol/L (3.5-5.5)
--- NOTE | 2020-10-22 15:14 | P.PN ---
Subjective Progress Note Date: 10/22/20 Principal diagnosis: Bacteremia, leukocytosis, right hand cellulitis, possible right neck abscess, history of recent left total knee arthroplasty Patient was evaluated today at bedside, she is resting comfortably. Patient's knee continues to be asymptomatic and no worsening symptoms. The right hand cellulitis is also improving. She is continue to work with physical therapy. She is being followed by both internal medicine, infectious disease and nephrology. Objective - Vital Signs Vital signs: Vital Signs Temp 97.7 F 10/22/20 12:26 Pulse 92 10/22/20 12:26 Resp 18 10/22/20 12:26 BP 127/71 10/22/20 12:26 Pulse Ox 98 10/22/20 12:26 Intake & Output 10/21/20 10/22/20 10/22/20 18:59 06:59 18:59 Intake Total 640 Balance 640 Intake: Intake, IV Titration 340 Amount Sodium Chloride 0.9% 1, 240 000 ml @ 20 mls/hr IV . Q24H KAYLIN Rx#:[id number] ceFAZolin 1,000 mg In 100 Sodium Chloride 0.9% 50 ml @ 100 mls/hr IVPB Q12HR KAYLIN Rx#:[id number] Oral 300 Other: Voiding Method CAPD CAPD CAPD # Voids 2 2 - Exam Left lower extremity: Incision is clean, dry and intact there are no areas of erythema present.. Patient is able to extend and flex knee, she lacks 10 of full extension, she can flex to 90. Passive motion of the knee, reproduce some discomfort but no extreme pain is reproduced on exam. The calf is soft, no tenderness with palpation. Plantar flexion, dorsiflexion, EHL, FHL are intact. The calf is soft, no tenderness with palpation. Her sensory exam light touch is intact in the extremity. Her dorsalis pedis pulses 2+ General Exam: No significant erythema present in the lower or upper part of the left leg area. Exam of the right upper extremity did demonstrate obvious erythema and soft tissue swelling in the dorsum of the hand extending into the fingers. Erythema and both soft tissue swelling seem improved. There is a little bit more localized erythema near the proximal phalanx on the dorsum of the fourth finger. I'm unable to appreciate any fluctuance in that area. Sensory exam to light touch throughout the right upper extremity was intact. Radial and ulnar pulses are 2+. - Labs CBC & Chem 7: 10/22/20 07:11 10/22/20 07:11 Labs: Abnormal Lab Results - Last 24 Hours (Table) 10/22/20 10/22/20 Range/Units 07:11 07:11 WBC 17.53 H (4.50-10.00) X 10*3/uL RBC 2.72 L (4.10-5.20) X 10*6/uL Hgb 8.6 L (12.0-15.0) g/dL Hct 28.2 L (37.2-46.3) % MCV 103.7 H (80.0-97.0) fL MCHC 30.5 L (32.0-37.0) g/dL RDW 17.1 H (11.5-14.5) % Plt Count 449 H (140-440) X 10*3/uL Plt Count Comment INCREASED A Absolute Nucleated RBC 0.02 H (0.00-0.00) X 10*3/uL Metamyelocytes % 2 H (0-0) % Myelocytes % 2 H (0-0) % Neutrophils # (Manual) 14.90 H (2.00-8.90) X 10*3/uL Eosinophils # (Manual) 0 L (0.04-0.35) X 10*3/uL NRBC/100 WBC Diff 0.1 H (0.0-0.0) /100 WBCS Anion Gap 18.60 H (4.00-12.00) mmol/L BUN 50.0 H (9.0-27.0) mg/dL Creatinine 6.0 H (0.6-1.5) mg/dL Est GFR (CKD-EPI)AfAm 8.4 L (60.0-200.0) Est GFR (CKD-EPI)NonAf 7.2 L (60.0-200.0) BUN/Creatinine Ratio 8.33 L (12.00-20.00) Ratio Glucose 155 H (70-110) mg/dL C-Reactive Protein 23.7 H (0.0-0.8) mg/dL Microbiology - Last 24 Hours (Table) 10/17/20 22:43 Gram Stain - Final Peritoneal Fluid Body Fluid Culture - Final 10/20/20 08:07 Blood Culture - Preliminary Blood No Growth after 48 hours 10/21/20 06:25 Blood Culture - Preliminary Blood No Growth after 24 hours 10/19/20 14:44 Blood Culture Gram Stain - Final Blood Blood Culture - Final Staphylococcus aureus Assessment and Plan Assessment: Bacteremia Leukocytosis Right hand cellulitis Recent left total knee arthroplasty Multiple medical comorbidities Plan: The left knee continues to be asymptomatic with no acute changes. Weight-bear as tolerated on left knee. Physical therapy evaluation will be ordered. Recommend ice and elevation along with oral medication for pain relief The permacath has since been removed. Patient will be scheduled for midline placement and IV antibiotic treatment per infectious disease We'll recheck right hand daily for improving/worsening symptoms Other medical specialty recommendations Time with Patient: Less than 30
--- NOTE | 2020-10-22 15:24 | PN ---
PROGRESS NOTE Patient is seen for followup for end-stage renal disease. She is maintained on peritoneal dialysis. The patient is doing fairly well. She states that she wants to go home. Repeat blood cultures have been negative as of 10/20 and 10/21/2020. PHYSICAL EXAMINATION: On examination today, blood pressure was 110/70, heart rate 83 per minute, she is afebrile. Examination of the heart S1, S2. Examination of the lungs, bilateral breath sounds are heard. Abdomen is soft, nontender. Examination of lower extremities shows no significant edema. The patient is currently working with physical therapy. LAB: Show hemoglobin 8.6, sodium 136, potassium 4.1, BUN 53, serum creatinine 5.5, random vancomycin level was 47.3 on 10/18/2020. ASSESSMENT: 1. End-stage renal disease, on peritoneal dialysis, tolerating well. 2. MSSA bacteremia, most likely related to IJ PermCath which was placed for temporary hemodialysis while patient was in rehab. This is discontinued. Repeat blood cultures are negative. Patient has received vancomycin. 3. Status post left knee arthroplasty, doing well. PLAN: Continue with the current peritoneal dialysis. Possible discharge soon. MMODL / IJN: [id number] /
[2020-10-22] MEDS: SODIUM CHLORIDE 0.9% 1,000 ML IV SCH (19:25)
[2020-10-22] MEDS: ATORVASTATIN 10 MG TAB PO SCH (22:10)
[2020-10-23] MEDS: DIALYSIS (PERIT 2.5%) 2,500 ML 62.5 G/2,500 ML BAG INTRAPERIT SCH ×2 (00:01→12:45)
[2020-10-23] MEDS: DIALYSIS (PERIT 1.5%) 2,500 ML 37.5 G/2,500 ML BAG INTRAPERIT SCH ×2 (05:29→17:37)
[2020-10-23] MEDS: LEVOTHYROXINE 112 MCG TAB PO SCH (05:49)
[2020-10-23] MEDS: SEVELAMER 800 MG TAB PO SCH ×2 (07:43→16:37)
[2020-10-23] MEDS: FUROSEMIDE 40 MG TAB PO SCH ×2 (07:43→16:44)
[2020-10-23] MEDS: FERROUS SULFATE 325 MG TAB PO SCH (07:43)
[2020-10-23] MEDS: amLODIPine 2.5 MG TAB PO SCH (07:43)
[2020-10-23] MEDS: allopurinoL 100 MG TAB PO SCH (07:43)
[2020-10-23 11:03] LABS: Basophils # (A) 0.05 X 10*3/uL (0.00-0.10); Basophils % (A) 0.3 %; Eosinophils % (A) 0.6 %; HCT 28.6 % (37.2-46.3); HGB 8.6 g/dL (12.0-15.0); Lymphocytes # (A) 1.42 X 10*3/uL (0.90-5.00); Lymphocytes % (A) 8.9 %; MCH 30.9 pg (27.0-32.0); MCHC 30.1 g/dL (32.0-37.0); MCV 102.9 fL (80.0-97.0); Mean Platelet Volume 10.7 fL (9.5-12.2); Monocytes # (A) 0.71 X 10*3/uL (0.20-1.00); Monocytes % (A) 4.5 %; Neutrophils # (A) 12.82 X 10*3/uL (1.80-7.70); Neutrophils % (A) 80.8 %; Platelet Count 456 X 10*3/uL (140-440); RBC 2.78 X 10*6/uL (4.10-5.20); RDW 17.2 % (11.5-14.5); WBC 15.88 X 10*3/uL (4.50-10.00)
--- NOTE | 2020-10-23 12:09 | P.PN ---
Subjective Patient is seen in follow-up for end-stage renal disease. Maintain on peritoneal dialysis. Hemodynamically stable. No issues with dialysis. Vital signs are stable. General: The patient appeared well nourished and normally developed. HEENT: Head exam is unremarkable. Neck is without jugular venous distension. LUNGS: Breath sounds decreased. HEART: Rate and Rhythm are regular. ABDOMEN: Soft, no distention. EXTREMITITES: No edema. Objective - Vital Signs Vital signs: Vital Signs Temp 98.2 F 10/23/20 08:00 Pulse 86 10/23/20 08:00 Resp 16 10/23/20 08:00 BP 115/75 10/23/20 08:00 Pulse Ox 94 L 10/23/20 08:00 Intake & Output 10/22/20 10/23/20 10/23/20 18:59 06:59 18:59 Intake Total 1080 300 300 Output Total 100 Balance 1080 200 300 Intake: Oral 1080 300 300 Output: Urine 100 Other: Voiding Method CAPD CAPD # Voids 2 1 - Labs CBC & Chem 7: 10/23/20 06:49 10/22/20 07:11 Labs: Abnormal Lab Results - Last 24 Hours (Table) 10/22/20 10/22/20 10/23/20 Range/Units 07:11 07:11 06:49 WBC 15.88 H (4.50-10.00) X 10*3/uL RBC 2.78 L (4.10-5.20) X 10*6/uL Hgb 8.6 L (12.0-15.0) g/dL Hct 28.6 L (37.2-46.3) % MCV 102.9 H (80.0-97.0) fL MCHC 30.1 L (32.0-37.0) g/dL RDW 17.2 H (11.5-14.5) % Plt Count 456 H (140-440) X 10*3/uL Plt Count Comment INCREASED A Metamyelocytes % 2 H (0-0) % Myelocytes % 2 H (0-0) % Immature Gran # 0.78 H (0.00-0.04) X 10*3/uL Neutrophils # 12.82 H (1.80-7.70) X 10*3/uL Neutrophils # (Manual) 14.90 H (2.00-8.90) X 10*3/uL Eosinophils # (Manual) 0 L (0.04-0.35) X 10*3/uL Anion Gap 18.60 H (4.00-12.00) mmol/L BUN 50.0 H (9.0-27.0) mg/dL Creatinine 6.0 H (0.6-1.5) mg/dL Est GFR (CKD-EPI)AfAm 8.4 L (60.0-200.0) Est GFR (CKD-EPI)NonAf 7.2 L (60.0-200.0) BUN/Creatinine Ratio 8.33 L (12.00-20.00) Ratio Glucose 155 H (70-110) mg/dL C-Reactive Protein 23.7 H (0.0-0.8) mg/dL Microbiology - Last 24 Hours (Table) 10/20/20 08:07 Blood Culture - Preliminary Blood No Growth after 72 hours 10/22/20 07:11 Blood Culture - Preliminary Blood No Growth after 24 hours 10/21/20 06:25 Blood Culture - Preliminary Blood No Growth after 48 hours 10/17/20 22:43 Gram Stain - Final Peritoneal Fluid Body Fluid Culture - Final Assessment and Plan Plan: Assessment: 1. End-stage renal disease maintained on peritoneal dialysis. 2. MSSA bacteremia secondary to permacath. Permacath removed. Maintained on antibiotics. 3. Hypertension with chronic kidney disease. Stable. 4. Anemia of chronic kidney disease maintained on Aranesp. 5. Chronic kidney disease mineral bone disease maintained on Renvela. Plan: Maintain current peritoneal dialysis exchanges. Patient will need to go to rehab upon discharge. Currently no rehab will do peritoneal dialysis. Therefore patient will need reinsertion of a permacath and be set up for hemodialysis outpatient prior to discharge.
[2020-10-23 12:24] LABS: African American GFR (CKD) 8.4 (60.0-200.0); Anion Gap 17.7 mmol/L (4.00-12.00); BUN/Creat Ratio 8.33 Ratio (12.00-20.00); Calcium 8.9 mg/dL (8.7-10.3); Carbon Dioxide 24.3 mmol/L (21.6-31.8); Non-African American GFR(CKD) 7.2 (60.0-200.0); Potassium 3.4 mmol/L (3.5-5.5)
[2020-10-23] MEDS: POTASSIUM CHLORIDE 20 MEQ in WATER FOR INJECTION 1 100ML.BAG IVPB SCH ×2 (13:12→16:43)
[2020-10-23 13:32] VITALS: BMI 33.6
--- NOTE | 2020-10-23 14:11 | P.PN ---
Subjective Progress Note Date: 10/23/20 Principal diagnosis: Recent left total knee arthroplasty Patient was seen at bedside this morning. She is resting in bed semirecumbent. She mentions her left knee is doing better. She says there is some pain on the backside of her knee. She says her right hand is getting better and is less red. Patient says she would like to go home. She continues to work with physical therapy and is being followed by medicine, nephrology, infectious disease. Patient denies any chest pain, fever, shortness of breath, change in vision, nausea, vomiting. Patient denies loss of bowel control. She denies saddle anesthesia. Objective - Vital Signs Vital signs: Vital Signs Temp 98.2 F 10/23/20 08:00 Pulse 86 10/23/20 08:00 Resp 16 10/23/20 08:00 BP 115/75 10/23/20 08:00 Pulse Ox 94 L 10/23/20 08:00 Intake & Output 10/22/20 10/23/20 10/23/20 18:59 06:59 18:59 Intake Total 1080 300 600 Output Total 100 Balance 1080 200 600 Weight 91.626 kg Intake: Oral 1080 300 600 Output: Urine 100 Other: Voiding Method CAPD CAPD # Voids 2 1 - Exam Patient examined bedside. Recent left total knee arthroplasty is stable. Incision is clean, dry, intact. incision has healed nicely. Patient likes to keep left knee in a flexed position about 90. She was able to extend her left leg to about -15. Left foot is edematous, non-erythematous. Patient is able to wiggle toes. Cap refill under 3 seconds. Dorsiflexion, plantarflexion is intact. Patient does not complain of pain in the left foot. Negative Homans b ilaterally. Right hand cellulitis is improving. There is an erythematous area over the right fourth MCP joint dorsally. Patient is able to flex and extend digits and right hand without pain. Patient is nontender to palpation throughout the right hand. There is mild fluctuance to the incision on the right cervical area. Minimal purulence. - Labs CBC & Chem 7: 10/23/20 06:49 10/23/20 06:49 Labs: Abnormal Lab Results - Last 24 Hours (Table) 10/22/20 10/23/20 10/23/20 Range/Units 07:11 06:49 06:49 WBC 15.88 H (4.50-10.00) X 10*3/uL RBC 2.78 L (4.10-5.20) X 10*6/uL Hgb 8.6 L (12.0-15.0) g/dL Hct 28.6 L (37.2-46.3) % MCV 102.9 H (80.0-97.0) fL MCHC 30.1 L (32.0-37.0) g/dL RDW 17.2 H (11.5-14.5) % Plt Count 456 H (140-440) X 10*3/uL Immature Gran # 0.78 H (0.00-0.04) X 10*3/uL Neutrophils # 12.82 H (1.80-7.70) X 10*3/uL Potassium 3.4 L (3.5-5.5) mmol/L Anion Gap 18.60 H 17.70 H (4.00-12.00) mmol/L BUN 50.0 H 50.0 H (9.0-27.0) mg/dL Creatinine 6.0 H 6.0 H (0.6-1.5) mg/dL Est GFR (CKD-EPI)AfAm 8.4 L 8.4 L (60.0-200.0) Est GFR (CKD-EPI)NonAf 7.2 L 7.2 L (60.0-200.0) BUN/Creatinine Ratio 8.33 L 8.33 L (12.00-20.00) Ratio Glucose 155 H 128 H (70-110) mg/dL C-Reactive Protein 23.7 H (0.0-0.8) mg/dL Microbiology - Last 24 Hours (Table) 10/20/20 08:07 Blood Culture - Preliminary Blood No Growth after 72 hours 10/22/20 07:11 Blood Culture - Preliminary Blood No Growth after 24 hours 10/21/20 06:25 Blood Culture - Preliminary Blood No Growth after 48 hours 10/17/20 22:43 Gram Stain - Final Peritoneal Fluid Body Fluid Culture - Final Assessment and Plan Assessment: Bacteremia Leukocytosis Right hand cellulitis Recent left total knee arthroplasty Multiple medical comorbidities Plan: 1. Bacteremia- patient being followed closely by nephrology, medicine, infectious disease. 2. Recent left total knee arthroplasty- stable at this time. Continue physical therapy. Weightbearing as tolerated on left leg. Incision is clean, dry, int act. No changes. We will continue to follow patient while in hospital. 3. Right hand cellulitis- improving. Patient able to flex and extend all digits in the right hand. Minimal erythema along dorsum of hand. 4. Pain management - stable at this time 5. PT/OT - weightbearing as tolerated/with walker on left leg 6. Appreciate medical management, nephrology, infectious disease management Time with Patient: Less than 30
[2020-10-23] MEDS ORDERED: fentaNYL (PF) 50 MCG/ML 2 ML AMP IVP ONE (15:52)
[2020-10-23] MEDS ORDERED: LIDOCAINE 1% INJ 10MG/ML (20 ML MDV) SQ ONE (15:54)
[2020-10-23] MEDS ORDERED: IV FLUID CONTINUATION 700 ML IV ONE (16:06)
--- NOTE | 2020-10-23 17:17 | XR ---
EXAMINATION TYPE: XR chest 1V portable DATE OF EXAM: 10/23/2020 COMPARISON: 09/30/2020 HISTORY: Catheter placement TECHNIQUE: Single view FINDINGS: There is right jugular catheter with tip in the superior vena cava. There is some mild atel ectasis at the lung bases. There is no heart failure. Heart size is fairly normal. Bony thorax is int act. IMPRESSION: There is some increased atelectasis at the lung bases compared to old exam. No heart fail ure.
--- NOTE | 2020-10-23 19:35 | PCN ---
PROCEDURE NOTE PREOPERATIVE DIAGNOSIS: Acute on chronic renal failure. POSTOPERATIVE DIAGNOSIS: Acute on chronic renal failure. PROCEDURE PERFORMED: Right IJ catheter ultrasound-guided 19 cm. SEDATION: Sedation time is 30 minutes. DESCRIPTION OF PROCEDURE: This patient was brought to the test lab technician. Right side of the neck and chest was prepped and drapes applied in usual sterile manner. 1% lidocaine plain infiltrated into the neck and chest area. Ultrasound-guided micropuncture into the right jugular vein. Micropuncture guidewire was passed and 4-Azerbaijani dilator advanced on top of the guidewire. After that, we created a tunnel. Through the tunnel, we brought 19 cm dialysis catheter. Then we passed a regular guidewire which was parked in the inferior vena cava. The dilator was advanced and dialysis catheter advanced on top of the guidewire. Tip of catheter in superior vena cava at the junction flushed with heparin saline and hep-locked, secured with 3-0 nylon and Vicryl. Dressing applied. Patient tolerated the procedure well. MMODL / IJN: [id number] /
[2020-10-23] MEDS: SODIUM CHLORIDE 0.9% 1,000 ML IV SCH (20:19)
[2020-10-23] MEDS: ATORVASTATIN 10 MG TAB PO SCH (21:19)
--- NOTE | 2020-10-23 23:12 | PN ---
PROGRESS NOTE DATE OF SERVICE: 10/23/2020 REASON FOR FOLLOWUP: MSSA bacteremia secondary to PermCath infection. INTERVAL HISTORY: Patient is afebrile. The patient is breathing comfortably. The patient denies having any chest pain, shortness of breath or cough. No abdominal pain or diarrhea. PHYSICAL EXAMINATION: Blood pressure 111/70 with a pulse of 102. Temperature 98.8. She is 95% on room air./ General description: The patient is a middle-aged female lying in bed in no distress. Respiratory system: Unlabored breathing, clear to auscultation anteriorly. Heart S1, S2. Regular rate and rhythm. ABDOMEN: Soft, no tenderness. LABS: Hemoglobin 8.8, white count 15.8. BUN of 50, creatinine 36.0. Blood culture repeat has been negative. DIAGNOSTIC IMPRESSION AND PLAN: Patient with MSSA bacteremia secondary to PermCath which has been discontinued now plan is for restarting of hemodialysis for which the patient is cleared to go for another PermCath placement. She will be switched over to vancomycin through dialysis for 2 weeks to avoid placing a PICC line. This was discussed with the patient's director of enrollment. MMMAKENZIEL / DINAN: [id number] /
[2020-10-24] MEDS: DIALYSIS (PERIT 2.5%) 2,500 ML 62.5 G/2,500 ML BAG INTRAPERIT SCH ×2 (00:12→12:08)
[2020-10-24] MEDS: DIALYSIS (PERIT 1.5%) 2,500 ML 37.5 G/2,500 ML BAG INTRAPERIT SCH ×2 (05:20→17:07)
[2020-10-24] MEDS: LEVOTHYROXINE 112 MCG TAB PO SCH (05:21)
[2020-10-24] MEDS: FERROUS SULFATE 325 MG TAB PO SCH (07:07)
[2020-10-24] MEDS: FUROSEMIDE 40 MG TAB PO SCH ×2 (07:07→16:07)
[2020-10-24] MEDS: amLODIPine 2.5 MG TAB PO SCH (07:08)
[2020-10-24] MEDS: allopurinoL 100 MG TAB PO SCH (07:08)
[2020-10-24] MEDS: SEVELAMER 800 MG TAB PO SCH ×2 (07:08→16:07)
--- NOTE | 2020-10-24 09:02 | IR ---
EXAMINATION TYPE: IR cvc insert central tunneled DATE OF EXAM: 10/23/2020 COMPARISON: NONE HISTORY: Fluoroscopy time. Fluoroscopy was provided to the referring clinician.
--- NOTE | 2020-10-24 10:49 | P.PN ---
Subjective Patient is seen in follow-up for end-stage renal disease. Maintain on peritoneal dialysis. Hemodynamically stable. No issues with dialysis. She had a permacath placed yesterday. Vital signs are stable. General: The patient appeared well nourished and normally developed. HEENT: Head exam is unremarkable. Neck is without jugular venous distension. LUNGS: Breath sounds decreased. HEART: Rate and Rhythm are regular. ABDOMEN: Soft, no distention. EXTREMITITES: No edema. Objective - Vital Signs Vital signs: Vital Signs Temp 98.8 F 10/24/20 08:04 Pulse 96 10/24/20 08:04 Resp 16 10/24/20 08:04 BP 108/69 10/24/20 08:04 Pulse Ox 95 10/24/20 08:04 Intake & Output 10/23/20 10/24/20 10/24/20 18:59 06:59 18:59 Intake Total 625 300 Balance 625 300 Weight 91.626 kg Intake: IV 25 Oral 600 300 Other: Voiding Method Bedpan Bedpan Diaper Diaper CAPD CAPD # Voids 1 - Labs CBC & Chem 7: 10/23/20 06:49 10/23/20 06:49 Labs: Abnormal Lab Results - Last 24 Hours (Table) 10/23/20 10/23/20 Range/Units 06:49 06:49 WBC 15.88 H (4.50-10.00) X 10*3/uL RBC 2.78 L (4.10-5.20) X 10*6/uL Hgb 8.6 L (12.0-15.0) g/dL Hct 28.6 L (37.2-46.3) % MCV 102.9 H (80.0-97.0) fL MCHC 30.1 L (32.0-37.0) g/dL RDW 17.2 H (11.5-14.5) % Plt Count 456 H (140-440) X 10*3/uL Immature Gran # 0.78 H (0.00-0.04) X 10*3/uL Neutrophils # 12.82 H (1.80-7.70) X 10*3/uL Potassium 3.4 L (3.5-5.5) mmol/L Anion Gap 17.70 H (4.00-12.00) mmol/L BUN 50.0 H (9.0-27.0) mg/dL Creatinine 6.0 H (0.6-1.5) mg/dL Est GFR (CKD-EPI)AfAm 8.4 L (60.0-200.0) Est GFR (CKD-EPI)NonAf 7.2 L (60.0-200.0) BUN/Creatinine Ratio 8.33 L (12.00-20.00) Ratio Glucose 128 H (70-110) mg/dL Microbiology - Last 24 Hours (Table) 10/20/20 08:07 Blood Culture - Preliminary Blood No Growth after 96 hours 10/22/20 07:11 Blood Culture - Preliminary Blood No Growth after 48 hours 10/21/20 06:25 Blood Culture - Preliminary Blood No Growth after 72 hours Assessment and Plan Plan: Assessment: 1. End-stage renal disease maintained on peritoneal dialysis. 2. MSSA bacteremia secondary to permacath. Permacath removed. Maintained on antibiotics. 3. Hypertension with chronic kidney disease. Stable. 4. Anemia of chronic kidney disease maintained on Aranesp. 5. Chronic kidney disease mineral bone disease maintained on Renvela. Plan: Stop peritoneal dialysis this afternoon. Plan short treatment of hemodialysis today to make sure the catheter is working well. Patient will need to go to rehab upon discharge. Currently no rehab will do peritoneal dialysis. Therefore she will be transitioned to hemodialysis temporarily and peritoneal dialysis will be resumed once she is back home from the rehab.
[2020-10-24 11:56] LABS: Basophils % (A) 0.5 %; Eosinophils # (A) 0.16 X 10*3/uL (0.04-0.35); Eosinophils % (A) 0.9 %; HCT 26.9 % (37.2-46.3); HGB 8.1 g/dL (12.0-15.0); Lymphocytes # (A) 1.29 X 10*3/uL (0.90-5.00); MCH 31.3 pg (27.0-32.0); MCHC 30.1 g/dL (32.0-37.0); MCV 103.9 fL (80.0-97.0); Mean Platelet Volume 10.3 fL (9.5-12.2); Monocytes # (A) 0.82 X 10*3/uL (0.20-1.00); Monocytes % (A) 4.4 %; Neutrophils # (A) 15.23 X 10*3/uL (1.80-7.70); Neutrophils % (A) 82.3 %; Platelet Count 390 X 10*3/uL (140-440); RBC 2.59 X 10*6/uL (4.10-5.20); RDW 17.5 % (11.5-14.5)
[2020-10-24 14:27] LABS: African American GFR (CKD) 8.4 (60.0-200.0); Anion Gap 12.1 mmol/L (4.00-12.00); BUN/Creat Ratio 9.33 Ratio (12.00-20.00); Calcium 9.1 mg/dL (8.7-10.3); Carbon Dioxide 25.9 mmol/L (21.6-31.8); Non-African American GFR(CKD) 7.2 (60.0-200.0); Potassium 3.4 mmol/L (3.5-5.5)
[2020-10-24] MEDS ORDERED: POTASSIUM CHLORIDE 40 MEQ in WATER FOR INJECTION 1 100ML.BAG IVPB STA (14:37)
[2020-10-24] MEDS ORDERED: FLUCONAZOLE 100 MG TAB PO ONE (15:27)
[2020-10-24] MEDS: POTASSIUM CHLORIDE 20 MEQ in WATER FOR INJECTION 1 100ML.BAG IVPB SCH ×2 (16:05→19:01)
[2020-10-24] MEDS: IOPAMIDOL CONTRAST (ORAL USE) VIAL PO PRN ×2 (16:05→17:10)
[2020-10-24 16:40] LABS: Hepatitis A Antibody IgM Non-Reactive (Non-Reactive); Hepatitis B Core IgM Non-Reactive (Non-Reactive); Hepatitis B Surface Antigen Non-Reactive (Non-Reactive); Hepatitis C IgG Antibody Non-Reactive (Non-Reactive)
--- NOTE | 2020-10-24 18:32 | PN ---
PROGRESS NOTE DATE OF SERVICE: 10/24/2020 REASON FOR FOLLOWUP: MSSA bacteremia secondary to PermCath infection. INTERVAL HISTORY: Patient is afebrile. The patient is breathing comfortably. Denies having any chest pain, shortness of breath or cough. No abdominal pain or diarrhea. PHYSICAL EXAMINATION: VITAL SIGNS: Her blood pressure is 118/60 with a pulse of 100, on room air. GENERAL DESCRIPTION: A middle-aged female lying in bed in no distress. RESPIRATORY SYSTEM: Unlabored breathing, clear to auscultation anteriorly. HEART: S1, S2. Regular rate and rhythm. ABDOMEN: Soft, no tenderness. LABORATORY DATA: Hemoglobin is 8.1, white count 18.50. Did have some immature forms. BUN of 56, creatinine 6.0. DIAGNOSTIC IMPRESSION AND PLAN: Patient with MSSA bacteremia in this patient who has cleared her bacteremia after removal of the PermCath. Did not have any obvious focus of infection. Patient was on peritoneal dialysis however the peritoneal fluid culture was negative. Persistent elevated white count concerning. We will obtain a CT abdomen and pelvis to make sure no evidence of any intraabdominal source. Add oral Diflucan and monitor clinical course closely. MMODL / IJN: [id number] /
--- NOTE | 2020-10-24 19:07 | CT ---
EXAMINATION TYPE: CT abdomen pelvis wo con DATE OF EXAM: 10/24/2020 COMPARISON: None HISTORY: ABD PAIN CT DLP: 847.6 mGycm Automated exposure control for dose reduction was used. Images obtained from the level of the diaphragm to the floor the pelvis with oral contrast only.. There is patchy infiltrate and atelectasis at the lung bases. There is some consolidation in both low er lobes. There is no pleural effusion. Heart size is normal. There is no pericardial effusion. There is small pneumoperitoneum. Liver is intact. Spleen is intact. There is no pancreatic mass. Stom ach is intact. There is no adrenal mass. Kidneys show mild atrophy. There is no hydronephrosis. Ureters are not dila merline. There is no retroperitoneal adenopathy. There is no evidence of pancreatic mass. There is no mesenteric edema. There is apparent peritoneal dialysis catheter. This is coiled in the l ower abdomen. There is small amount of fluid in the pelvis. Uterus is intact. Bladder is intact. Ther e is no inguinal hernia. Uterus is anteverted. Lumbar vertebra have normal alignment. There is no compression fracture. Posterior elements are intac t. Bony pelvis is intact. The hip joints are intact. There is no evidence of a bowel obstruction. Terminal ileum appears normal. Appendix is not seen. The re is no sign of thickened appendix. IMPRESSION: There is a mild pneumoperitoneum that could relate to the dialysis catheter. Small amount of fluid wi th low density in the pelvis. Mild renal atrophy. Bilateral lower lobe pulmonary airspace consolidation and atelectasis.
[2020-10-24] MEDS: SODIUM CHLORIDE 0.9% 1,000 ML IV SCH (21:01)
[2020-10-24] MEDS: ATORVASTATIN 10 MG TAB PO SCH (21:01)
--- NOTE | 2020-10-24 23:55 | P.PN ---
Subjective Progress Note Date: 10/22/20 Principal diagnosis: MSSA bacteremia 55-year-old female was brought to the hospital because of fever and generalized weakness. Patient had a recent left knee surgery on 09/25/2020 and the patient has been unable to bear weight for last few days on the left knee. Patient also has recurrent dialysis catheter and the patient's dialysate was cloudy. Patient also has right-sided permacath with the some redness around the neck area. Patient denied any cough dysuria. Urine analysis is bit abnormal with some large leukocyte esterase and WBC in the urine. Patient does have increased swelling in the left leg where she had a surgery of the surgical site appears to be clean patient the does have some pain with movement of this leg. The dialysis catheter was placed about 3 weeks ago during her hospitalization just before discharge. 10/18/2020 Patient wasn't evaluated by infectious disease and patient is being continued on vancomycin patient had a low-grade fever last night. A concern is permacath infection. Patient also has a peroneal dialysis catheter peritoneal fluid is being sent for analysis. Patient also had a right knee surgery possibility that his right knee , the source of infection is low. We'll 10/19/2020 Patient has persistent bacteremia patient has MSSA, patient was switched to ceftezole and vancomycin was discontinued. Because of persistent bacteremia permacath was discontinued yesterday. Obtaining repeat blood cultures for today and tomorrow morning. 10/20/2020 Serum sodium improved to 135 potassium is 3.4 which will be replaced. Patient is a peroneal dialysis dependent presents in creatinine is 5.92. Patient can use to have bacteremia. Infectious disease is following the patient. 10/21/2020 Patient the blood cultures are positive from fourth around have any other blood cultures available I did order to be blood cultures for today and tomorrow morning. And patient is afebrile. 10/22/2020 Patient is currently resting in the bed. Mentation is at baseline. Afebrile. Repeat blood cultures have been negative. Patient is being continued cefazolin due to emesis bacteremia. Dialysis access catheter was removed. ID and nephrology is following. Discussed with the family at bedside in detail. Current medications reviewed. Constitutional: Denied any fatigue denied any fever. Cardio vascular: denied any chest pain, palpitations Gastrointestinal denied any nausea vomiting Pulmonary: Denied any shortness of breath cough Neurologic denied any new focal deficits All inpatient medications were reviewed and appropriate changes in these medications as dictated in the interval history and assessment and plan. Objective - Vital Signs Vital signs: Vital Signs Temp 98.3 F 10/22/20 07:29 Pulse 83 10/22/20 07:29 Resp 18 10/22/20 07:29 BP 110/70 10/22/20 07:29 Pulse Ox 96 10/22/20 07:29 Intake & Output 10/21/20 10/22/20 10/22/20 18:59 06:59 18:59 Intake Total 640 Balance 640 Intake: Intake, IV Titration 340 Amount Sodium Chloride 0.9% 1, 240 000 ml @ 20 mls/hr IV . Q24H [facility] Rx#:[id number] ceFAZolin 1,000 mg In 100 Sodium Chloride 0.9% 50 ml @ 100 mls/hr IVPB Q12HR [facility] Rx#:[id number] Oral 300 Other: Voiding Method CAPD CAPD CAPD # Voids 2 2 - Exam PHYSICAL EXAMINATION: GENERAL: The patient is alert and oriented x2-3, not in any acute distress. Well developed, well nourished. HEENT: Pupils are round and equally reacting to light. EOMI. No scleral icterus. No conjunctival pallor. Normocephalic, atraumatic. No pharyngeal erythema. No thyromegaly. CARDIOVASCULAR: S1 and S2 present. No murmurs, rubs, or gallops. PULMONARY: Chest is clear to auscultation, no wheezing or crackles. ABDOMEN: Soft, nontender, nondistended, normoactive bowel sounds. No palpable organomegaly. MUSCULOSKELETAL: Left knee swelling as mentioned above EXTREMITIES: No cyanosis, clubbing, or pedal edema. NEUROLOGICAL: Gross neurological examination did not reveal any focal deficits. SKIN: Surgical site in the left knee is clean . - Labs CBC & Chem 7: 10/24/20 07:09 10/24/20 07:09 Labs: Abnormal Lab Results - Last 24 Hours (Table) 10/21/20 Range/Units 06:25 Anion Gap 14.80 H (4.00-12.00) mmol/L BUN 53.0 H (9.0-27.0) mg/dL Creatinine 5.5 H (0.6-1.5) mg/dL Est GFR (CKD-EPI)AfAm 9.3 L (60.0-200.0) Est GFR (CKD-EPI)NonAf 8.0 L (60.0-200.0) BUN/Creatinine Ratio 9.64 L (12.00-20.00) Ratio Glucose 113 H (70-110) mg/dL Calcium 8.3 L (8.7-10.3) mg/dL Microbiology - Last 24 Hours (Table) 10/21/20 06:25 Blood Culture - Preliminary Blood No Growth after 24 hours 10/19/20 14:44 Blood Culture Gram Stain - Final Blood Blood Culture - Final Staphylococcus aureus 10/17/20 22:43 Gram Stain - Preliminary Peritoneal Fluid Body Fluid Culture - Preliminary 10/20/20 08:07 Blood Culture - Preliminary Blood No Growth after 24 hours Assessment and Plan Assessment: -Sepsis secondary to MSSA bacteremia , patient had persistent bacteremia secondary to permacath which was removed. Patient also has paternal dialysis catheter. Patient had a recent left knee surgery although that doesn't appear to be a source of infection. Patient had persistent bacteremia in spite of it of removal of permacath. . Blood cultures since 10/20/2020 has been negative. ID is following. -Hyponatremia: Secondary to renal failure patient is on peritoneal dialysis, sodium is improving -Leukocytosis secondary to sepsis -Hyperlipidemia -End-stage renal disease on hemodialysis. -Hypertension -Anemia of chronic disease. DVT prophylaxis with heparin Plan: Patient will be continued on antibiotics involve cefazolin. Patient is currently on peritoneal dialysis which can be done at rehab. Nephrology is following. Repeat blood cultures have been negative. Time with Patient: Greater than 30
--- NOTE | 2020-10-24 23:57 | P.PN ---
Subjective Progress Note Date: 10/23/20 Principal diagnosis: MSSA bacteremia 55-year-old female was brought to the hospital because of fever and generalized weakness. Patient had a recent left knee surgery on 09/25/2020 and the patient has been unable to bear weight for last few days on the left knee. Patient also has recurrent dialysis catheter and the patient's dialysate was cloudy. Patient also has right-sided permacath with the some redness around the neck area. Patient denied any cough dysuria. Urine analysis is bit abnormal with some large leukocyte esterase and WBC in the urine. Patient does have increased swelling in the left leg where she had a surgery of the surgical site appears to be clean patient the does have some pain with movement of this leg. The dialysis catheter was placed about 3 weeks ago during her hospitalization just before discharge. 10/18/2020 Patient wasn't evaluated by infectious disease and patient is being continued on vancomycin patient had a low-grade fever last night. A concern is permacath infection. Patient also has a peroneal dialysis catheter peritoneal fluid is being sent for analysis. Patient also had a right knee surgery possibility that his right knee , the source of infection is low. We'll 10/19/2020 Patient has persistent bacteremia patient has MSSA, patient was switched to ceftezole and vancomycin was discontinued. Because of persistent bacteremia permacath was discontinued yesterday. Obtaining repeat blood cultures for today and tomorrow morning. 10/20/2020 Serum sodium improved to 135 potassium is 3.4 which will be replaced. Patient is a peroneal dialysis dependent presents in creatinine is 5.92. Patient can use to have bacteremia. Infectious disease is following the patient. 10/21/2020 Patient the blood cultures are positive from fourth around have any other blood cultures available I did order to be blood cultures for today and tomorrow morning. And patient is afebrile. 10/22/2020 Patient is currently resting in the bed. Mentation is at baseline. Afebrile. Repeat blood cultures have been negative. Patient is being continued cefazolin due to emesis bacteremia. Dialysis access catheter was removed. ID and nephrology is following. Discussed with the family at bedside in detail. 10/23/2020 Patient is currently resting in bed comfortably. Awake alert and at baseline. Patient has been afebrile. Repeat blood cultures have been negative. Otherwise laboratory data showed WBC trending down to 15.8 today hemoglobin 8.6 and platelets 456 BUN 60 and creatinine 6.0 Nephrology is planning dialysis catheter placement. Vascular surgery was consulted. Current medications reviewed. Constitutional: Denied any fatigue denied any fever. Cardio vascular: denied any chest pain, palpitations Gastrointestinal denied any nausea vomiting Pulmonary: Denied any shortness of breath cough Neurologic denied any new focal deficits All inpatient medications were reviewed and appropriate changes in these medications as dictated in the interval history and assessment and plan. Objective - Vital Signs Vital signs: Vital Signs Temp 98.8 F 10/23/20 19:42 Pulse 102 H 10/23/20 19:42 Resp 13 10/23/20 19:42 BP 111/70 10/23/20 19:42 Pulse Ox 95 10/23/20 19:42 Intake & Output 10/23/20 10/23/20 10/24/20 06:59 18:59 06:59 Intake Total 300 625 Output Total 100 Balance 200 625 Weight 91.626 kg Intake: IV 25 Oral 300 600 Output: Urine 100 Other: Voiding Method CAPD # Voids 1 - Exam PHYSICAL EXAMINATION: GENERAL: The patient is alert and oriented x2-3, not in any acute distress. Well developed, well nourished. HEENT: Pupils are round and equally reacting to light. EOMI. No scleral icterus. No conjunctival pallor. Normocephalic, atraumatic. No pharyngeal erythema. No thyromegaly. CARDIOVASCULAR: S1 and S2 present. No murmurs, rubs, or gallops. PULMONARY: Chest is clear to auscultation, no wheezing or crackles. ABDOMEN: Soft, nontender, nondistended, normoactive bowel sounds. No palpable organomegaly. MUSCULOSKELETAL: Left knee swelling as mentioned above EXTREMITIES: No cyanosis, clubbing, or pedal edema. NEUROLOGICAL: Gross neurological examination did not reveal any focal deficits. SKIN: Surgical site in the left knee is clean . - Labs CBC & Chem 7: 10/24/20 07:09 10/24/20 07:09 Labs: Abnormal Lab Results - Last 24 Hours (Table) 10/23/20 10/23/20 Range/Units 06:49 06:49 WBC 15.88 H (4.50-10.00) X 10*3/uL RBC 2.78 L (4.10-5.20) X 10*6/uL Hgb 8.6 L (12.0-15.0) g/dL Hct 28.6 L (37.2-46.3) % MCV 102.9 H (80.0-97.0) fL MCHC 30.1 L (32.0-37.0) g/dL RDW 17.2 H (11.5-14.5) % Plt Count 456 H (140-440) X 10*3/uL Immature Gran # 0.78 H (0.00-0.04) X 10*3/uL Neutrophils # 12.82 H (1.80-7.70) X 10*3/uL Potassium 3.4 L (3.5-5.5) mmol/L Anion Gap 17.70 H (4.00-12.00) mmol/L BUN 50.0 H (9.0-27.0) mg/dL Creatinine 6.0 H (0.6-1.5) mg/dL Est GFR (CKD-EPI)AfAm 8.4 L (60.0-200.0) Est GFR (CKD-EPI)NonAf 7.2 L (60.0-200.0) BUN/Creatinine Ratio 8.33 L (12.00-20.00) Ratio Glucose 128 H (70-110) mg/dL Microbiology - Last 24 Hours (Table) 10/20/20 08:07 Blood Culture - Preliminary Blood No Growth after 72 hours 10/22/20 07:11 Blood Culture - Preliminary Blood No Growth after 24 hours 10/21/20 06:25 Blood Culture - Preliminary Blood No Growth after 48 hours Assessment and Plan Assessment: -Sepsis secondary to MSSA bacteremia , patient had persistent bacteremia secondary to permacath which was removed. Patient also has paternal dialysis catheter. Patient had a recent left knee surgery although that doesn't appear to be a source of infection. Patient had persistent bacteremia in spite of it of removal of permacath. . Blood cultures since 10/20/2020 has been negative. ID is following. -Hyponatremia: Secondary to renal failure patient is on peritoneal dialysis, sodium is improving -Leukocytosis secondary to sepsis -Hyperlipidemia -End-stage renal disease on hemodialysis. -Hypertension -Anemia of chronic disease. DVT prophylaxis with heparin Plan: Patient will be continued on antibiotics involve cefazolin. Patient is currently on peritoneal dialysis which can be done at rehab. Nephrology is following. Repeat blood cultures have been negative. Time with Patient: Greater than 30
--- NOTE | 2020-10-24 23:59 | P.PN ---
Subjective Progress Note Date: 10/24/20 Principal diagnosis: MSSA bacteremia 55-year-old female was brought to the hospital because of fever and generalized weakness. Patient had a recent left knee surgery on 09/25/2020 and the patient has been unable to bear weight for last few days on the left knee. Patient also has recurrent dialysis catheter and the patient's dialysate was cloudy. Patient also has right-sided permacath with the some redness around the neck area. Patient denied any cough dysuria. Urine analysis is bit abnormal with some large leukocyte esterase and WBC in the urine. Patient does have increased swelling in the left leg where she had a surgery of the surgical site appears to be clean patient the does have some pain with movement of this leg. The dialysis catheter was placed about 3 weeks ago during her hospitalization just before discharge. 10/18/2020 Patient wasn't evaluated by infectious disease and patient is being continued on vancomycin patient had a low-grade fever last night. A concern is permacath infection. Patient also has a peroneal dialysis catheter peritoneal fluid is being sent for analysis. Patient also had a right knee surgery possibility that his right knee , the source of infection is low. We'll 10/19/2020 Patient has persistent bacteremia patient has MSSA, patient was switched to ceftezole and vancomycin was discontinued. Because of persistent bacteremia permacath was discontinued yesterday. Obtaining repeat blood cultures for today and tomorrow morning. 10/20/2020 Serum sodium improved to 135 potassium is 3.4 which will be replaced. Patient is a peroneal dialysis dependent presents in creatinine is 5.92. Patient can use to have bacteremia. Infectious disease is following the patient. 10/21/2020 Patient the blood cultures are positive from fourth around have any other blood cultures available I did order to be blood cultures for today and tomorrow morning. And patient is afebrile. 10/22/2020 Patient is currently resting in the bed. Mentation is at baseline. Afebrile. Repeat blood cultures have been negative. Patient is being continued cefazolin due to emesis bacteremia. Dialysis access catheter was removed. ID and nephrology is following. Discussed with the family at bedside in detail. 10/23/2020 Patient is currently resting in bed comfortably. Awake alert and at baseline. Patient has been afebrile. Repeat blood cultures have been negative. Otherwise laboratory data showed WBC trending down to 15.8 today hemoglobin 8.6 and platelets 456 BUN 60 and creatinine 6.0 Nephrology is planning dialysis catheter placement. Vascular surgery was consulted. 10/24/2020 Patient is currently lying in the bed awake alert and oriented x2. Maintain patient on dialysis. Permacath was placed yesterday. Nephrology is planning for hemodialysis today. Patient is being continued on cefazolin for MRSA bacteremia. Laboratory data showed WBC 18.5 hemoglobin 8.1 platelets 390 WBCs trending up today. CT of the abdomen pelvis were ordered for any possible source of infection. ID is on board. Patient has been afebrile. Tachycardia with heart rate around 104. Pulse ox is 97% on room air. No nausea vomiting or abdominal pain or diarrhea. Current medications reviewed. Constitutional: Denied any fatigue denied any fever. Cardio vascular: denied any chest pain, palpitations Gastrointestinal denied any nausea vomiting Pulmonary: Denied any shortness of breath cough Neurologic denied any new focal deficits All inpatient medications were reviewed and appropriate changes in these medications as dictated in the interval history and assessment and plan. Objective - Vital Signs Vital signs: Vital Signs Temp 97.7 F 10/24/20 14:30 Pulse 104 H 10/24/20 14:30 Resp 18 10/24/20 14:30 BP 118/60 10/24/20 14:30 Pulse Ox 97 10/24/20 14:30 Intake & Output 10/23/20 10/24/20 10/24/20 18:59 06:59 18:59 Intake Total 625 900 Output Total 500 Balance 625 400 Weight 91.626 kg Intake: IV 25 Oral 600 900 Output: Hemodialysis 500 Other: Voiding Method Bedpan Bedpan Diaper Diaper CAPD CAPD # Voids 1 - Exam PHYSICAL EXAMINATION: GENERAL: The patient is alert and oriented x2-3, not in any acute distress. Well developed, well nourished. HEENT: Pupils are round and equally reacting to light. EOMI. No scleral icterus. No conjunctival pallor. Normocephalic, atraumatic. No pharyngeal erythema. No thyromegaly. CARDIOVASCULAR: S1 and S2 present. No murmurs, rubs, or gallops. PULMONARY: Chest is clear to auscultation, no wheezing or crackles. ABDOMEN: Soft, nontender, nondistended, normoactive bowel sounds. No palpable organomegaly. MUSCULOSKELETAL: Left knee swelling as mentioned above EXTREMITIES: No cyanosis, clubbing, or pedal edema. NEUROLOGICAL: Gross neurological examination did not reveal any focal deficits. SKIN: Surgical site in the left knee is clean . - Labs CBC & Chem 7: 10/24/20 07:09 10/24/20 07:09 Labs: Abnormal Lab Results - Last 24 Hours (Table) 10/24/20 10/24/20 Range/Units 07: 07:09 WBC 18.50 H (4.50-10.00) X 10*3/uL RBC 2.59 L (4.10-5.20) X 10*6/uL Hgb 8.1 L (12.0-15.0) g/dL Hct 26.9 L (37.2-46.3) % MCV 103.9 H (80.0-97.0) fL MCHC 30.1 L (32.0-37.0) g/dL RDW 17.5 H (11.5-14.5) % Absolute Nucleated RBC 0.02 H (0.00-0.00) X 10*3/uL Immature Gran # 0.90 H (0.00-0.04) X 10*3/uL Neutrophils # 15.23 H (1.80-7.70) X 10*3/uL NRBC/100 WBC Diff 0.1 H (0.0-0.0) /100 WBCS Potassium 3.4 L (3.5-5.5) mmol/L Anion Gap 12.10 H (4.00-12.00) mmol/L BUN 56.0 H (9.0-27.0) mg/dL Creatinine 6.0 H (0.6-1.5) mg/dL Est GFR (CKD-EPI)AfAm 8.4 L (60.0-200.0) Est GFR (CKD-EPI)NonAf 7.2 L (60.0-200.0) BUN/Creatinine Ratio 9.33 L (12.00-20.00) Ratio Glucose 136 H (70-110) mg/dL Microbiology - Last 24 Hours (Table) 10/20/20 08:07 Blood Culture - Preliminary Blood No Growth after 96 hours 10/22/20 07:11 Blood Culture - Preliminary Blood No Growth after 48 hours 10/21/20 06:25 Blood Culture - Preliminary Blood No Growth after 72 hours Assessment and Plan Assessment: -Sepsis secondary to MSSA bacteremia , patient had persistent bacteremia secondary to permacath which was removed. Patient also has paternal dialysis catheter. Patient had a recent left knee surgery although that doesn't appear to be a source of infection. Patient had persistent bacteremia in spite of it of removal of permacath. . Blood cultures since 10/20/2020 has been negative. ID is following. WBC is trending up today. CT of the abdomen pelvis was ordered for possible source of infection. -Hyponatremia: Secondary to renal failure patient is on peritoneal dialysis, sodium is improving -Leukocytosis secondary to sepsis -Hyperlipidemia -End-stage renal disease on hemodialysis. -Hypertension -Anemia of chronic disease. DVT prophylaxis with heparin Plan: Patient will be continued on antibiotics involve cefazolin. Patient is currently on peritoneal dialysis which can be done at rehab. Nephrology is following. Repeat blood cultures have been negative.WBC is trending up today. CT of the abdomen pelvis was ordered for possible source of infection. Time with Patient: Greater than 30
[2020-10-25] MEDS: ACETAMINOPHEN TAB 325 MG TAB PO PRN ×2 (03:07→23:29)
[2020-10-25] MEDS: LEVOTHYROXINE 112 MCG TAB PO SCH (05:52)
[2020-10-25] MEDS: FERROUS SULFATE 325 MG TAB PO SCH (06:57)
[2020-10-25] MEDS: FLUCONAZOLE 100 MG TAB PO SCH (06:57)
[2020-10-25] MEDS: amLODIPine 2.5 MG TAB PO SCH (06:57)
[2020-10-25] MEDS: allopurinoL 100 MG TAB PO SCH (06:57)
[2020-10-25] MEDS: FUROSEMIDE 40 MG TAB PO SCH ×2 (06:58→17:35)
[2020-10-25] MEDS: SEVELAMER 800 MG TAB PO SCH ×2 (06:58→17:32)
[2020-10-25 09:56] LABS: Basophils # (A) 0.05 X 10*3/uL (0.00-0.10); Basophils % (A) 0.3 %; Eosinophils # (A) 0.09 X 10*3/uL (0.04-0.35); Eosinophils % (A) 0.5 %; HCT 24.7 % (37.2-46.3); HGB 7.3 g/dL (12.0-15.0); Lymphocytes # (A) 1.22 X 10*3/uL (0.90-5.00); Lymphocytes % (A) 6.8 %; MCH 30.7 pg (27.0-32.0); MCHC 29.6 g/dL (32.0-37.0); MCV 103.8 fL (80.0-97.0); Mean Platelet Volume 10.2 fL (9.5-12.2); Monocytes % (A) 3.3 %; Neutrophils # (A) 15.52 X 10*3/uL (1.80-7.70); Neutrophils % (A) 85.9 %; Platelet Count 363 X 10*3/uL (140-440); RBC 2.38 X 10*6/uL (4.10-5.20); RDW 17.5 % (11.5-14.5); WBC 18.06 X 10*3/uL (4.50-10.00)
[2020-10-25 10:24] LABS: African American GFR (CKD) 9.7 (60.0-200.0); Anion Gap 11.6 mmol/L (4.00-12.00); BUN/Creat Ratio 9.06 Ratio (12.00-20.00); Calcium 9.2 mg/dL (8.7-10.3); Carbon Dioxide 25.4 mmol/L (21.6-31.8); Non-African American GFR(CKD) 8.4 (60.0-200.0); Potassium 4.6 mmol/L (3.5-5.5)
--- NOTE | 2020-10-25 10:30 | P.PN ---
Subjective Patient is seen in follow-up for end-stage renal disease. Peritoneal dialysis held. Started on hemodialysis October 24. Hemodynamically stable. No active complaints. Vital signs are stable. General: The patient appeared well nourished and normally developed. HEENT: Head exam is unremarkable. Neck is without jugular venous distension. LUNGS: Breath sounds decreased. HEART: Rate and Rhythm are regular. ABDOMEN: Soft, no distention. EXTREMITITES: No edema. Objective - Vital Signs Vital signs: Vital Signs Temp 98.3 F 10/25/20 07:43 Pulse 92 10/25/20 07:43 Resp 17 10/25/20 07:43 BP 108/63 10/25/20 07:43 Pulse Ox 94 L 10/25/20 07:43 Intake & Output 10/24/20 10/25/20 10/25/20 18:59 06:59 18:59 Intake Total 900 300 Output Total 500 Balance 400 300 Intake: Oral 900 300 Output: Hemodialysis 500 Other: Voiding Method Bedpan Bedpan Diaper Diaper # Voids 2 3 - Labs CBC & Chem 7: 10/25/20 05:25 10/25/20 05:25 Labs: Abnormal Lab Results - Last 24 Hours (Table) 10/24/20 10/24/20 10/25/20 Range/Units 07:09 07:09 05:25 WBC 18.50 H 18.06 H (4.50-10.00) X 10*3/uL RBC 2.59 L 2.38 L (4.10-5.20) X 10*6/uL Hgb 8.1 L 7.3 L (12.0-15.0) g/dL Hct 26.9 L 24.7 L (37.2-46.3) % MCV 103.9 H 103.8 H (80.0-97.0) fL MCHC 30.1 L 29.6 L (32.0-37.0) g/dL RDW 17.5 H 17.5 H (11.5-14.5) % Absolute Nucleated RBC 0.02 H 0.02 H (0.00-0.00) X 10*3/uL Immature Gran # 0.90 H 0.58 H (0.00-0.04) X 10*3/uL Neutrophils # 15.23 H 15.52 H (1.80-7.70) X 10*3/uL NRBC/100 WBC Diff 0.1 H 0.1 H (0.0-0.0) /100 WBCS Potassium 3.4 L (3.5-5.5) mmol/L Anion Gap 12.10 H (4.00-12.00) mmol/L BUN 56.0 H (9.0-27.0) mg/dL Creatinine 6.0 H (0.6-1.5) mg/dL Est GFR (CKD-EPI)AfAm 8.4 L (60.0-200.0) Est GFR (CKD-EPI)NonAf 7.2 L (60.0-200.0) BUN/Creatinine Ratio 9.33 L (12.00-20.00) Ratio Glucose 136 H (70-110) mg/dL 10/25/20 Range/Units 05:25 WBC (4.50-10.00) X 10*3/uL RBC (4.10-5.20) X 10*6/uL Hgb (12.0-15.0) g/dL Hct (37.2-46.3) % MCV (80.0-97.0) fL MCHC (32.0-37.0) g/dL RDW (11.5-14.5) % Absolute Nucleated RBC (0.00-0.00) X 10*3/uL Immature Gran # (0.00-0.04) X 10*3/uL Neutrophils # (1.80-7.70) X 10*3/uL NRBC/100 WBC Diff (0.0-0.0) /100 WBCS Potassium (3.5-5.5) mmol/L Anion Gap (4.00-12.00) mmol/L BUN 48.0 H (9.0-27.0) mg/dL Creatinine 5.3 H (0.6-1.5) mg/dL Est GFR (CKD-EPI)AfAm 9.7 L (60.0-200.0) Est GFR (CKD-EPI)NonAf 8.4 L (60.0-200.0) BUN/Creatinine Ratio 9.06 L (12.00-20.00) Ratio Glucose (70-110) mg/dL Microbiology - Last 24 Hours (Table) 10/21/20 06:25 Blood Culture - Preliminary Blood No Growth after 96 hours 10/20/20 08:07 Blood Culture - Preliminary Blood No Growth after 96 hours 10/22/20 07:11 Blood Culture - Preliminary Blood No Growth after 48 hours Assessment and Plan Plan: Assessment: 1. End-stage renal disease maintained on peritoneal dialysis. 2. MSSA bacteremia secondary to permacath. Permacath removed and new one placed October 24. Maintained on antibiotics. 3. Hypertension with chronic kidney disease. Stable. 4. Anemia of chronic kidney disease maintained on Aranesp. 5. Chronic kidney disease mineral bone disease maintained on Renvela. Plan: Hemodialysis tomorrow. Patient will be going to rehab upon discharge. Currently no rehab will do peritoneal dialysis. Therefore she will be transitioned to hemodialysis temporarily and peritoneal dialysis will be resumed once she is back home from the rehab.
[2020-10-25] MEDS: ATORVASTATIN 10 MG TAB PO SCH (20:09)
[2020-10-25] MEDS: SODIUM CHLORIDE 0.9% 1,000 ML IV SCH (20:09)
[2020-10-25] MEDS ORDERED: VANCOMYCIN IV PER PHARMACY 1 EACH MISC MISCELLANE PRN (22:01)
[2020-10-25] MEDS ORDERED: VANCOMYCIN 1,500 MG in SODIUM CHLORIDE 0.9% 250 ML IVPB ONE (22:30)
--- NOTE | 2020-10-25 22:45 | PN ---
PROGRESS NOTE DATE OF SERVICE: 10/25/2020 REASON FOR FOLLOWUP: MSSA bacteremia secondary to PermCath infection. INTERVAL HISTORY: The patient is afebrile. The patient is breathing comfortably. The patient denies having any chest pain, shortness of breath or cough. No abdominal pain. No diarrhea. PHYSICAL EXAMINATION: Her blood pressure 116/65 with a pulse of 107, temperature 98.2. She is 97% on room air. General description is a middle-aged female lying in bed in no distress. Respiratory system: Unlabored breathing, decreased breath sounds at the base. No wheeze. HEART: S1, S2. Regular rate and rhythm. ABDOMEN: Soft, no tenderness. LABS: Hemoglobin is 7.1, white count of 18.06, BUN of 48, creatinine 5.3. Blood culture repeat has been negative so far. DIAGNOSTIC IMPRESSION AND PLAN: Patient with MSSA bacteremia secondary to PermCath infection to be discontinued, on cefazolin. She can get another PermCath for continuation of hemodialysis. Antibiotic will be transitioned to vancomycin, Pharmacy to dose, so we can avoid placing a PICC line. Continue supportive care. MMODL / IJN: [id number] /
[2020-10-26] MEDS: LEVOTHYROXINE 112 MCG TAB PO SCH (05:36)
[2020-10-26] MEDS: allopurinoL 100 MG TAB PO SCH (07:38)
[2020-10-26] MEDS: FERROUS SULFATE 325 MG TAB PO SCH (07:38)
[2020-10-26] MEDS: FLUCONAZOLE 100 MG TAB PO SCH (07:39)
[2020-10-26] MEDS: SEVELAMER 800 MG TAB PO SCH ×2 (07:40→15:49)
[2020-10-26] MEDS: FUROSEMIDE 40 MG TAB PO SCH ×2 (08:59→15:49)
[2020-10-26] MEDS: amLODIPine 2.5 MG TAB PO SCH (08:59)
--- NOTE | 2020-10-26 10:35 | P.PN ---
Subjective Progress Note Date: 10/25/20 Principal diagnosis: MSSA bacteremia 55-year-old female was brought to the hospital because of fever and generalized weakness. Patient had a recent left knee surgery on 09/25/2020 and the patient has been unable to bear weight for last few days on the left knee. Patient also has recurrent dialysis catheter and the patient's dialysate was cloudy. Patient also has right-sided permacath with the some redness around the neck area. Patient denied any cough dysuria. Urine analysis is bit abnormal with some large leukocyte esterase and WBC in the urine. Patient does have increased swelling in the left leg where she had a surgery of the surgical site appears to be clean patient the does have some pain with movement of this leg. The dialysis catheter was placed about 3 weeks ago during her hospitalization just before discharge. 10/18/2020 Patient wasn't evaluated by infectious disease and patient is being continued on vancomycin patient had a low-grade fever last night. A concern is permacath infection. Patient also has a peroneal dialysis catheter peritoneal fluid is being sent for analysis. Patient also had a right knee surgery possibility that his right knee , the source of infection is low. We'll 10/19/2020 Patient has persistent bacteremia patient has MSSA, patient was switched to ceftezole and vancomycin was discontinued. Because of persistent bacteremia permacath was discontinued yesterday. Obtaining repeat blood cultures for today and tomorrow morning. 10/20/2020 Serum sodium improved to 135 potassium is 3.4 which will be replaced. Patient is a peroneal dialysis dependent presents in creatinine is 5.92. Patient can use to have bacteremia. Infectious disease is following the patient. 10/21/2020 Patient the blood cultures are positive from fourth around have any other blood cultures available I did order to be blood cultures for today and tomorrow morning. And patient is afebrile. 10/22/2020 Patient is currently resting in the bed. Mentation is at baseline. Afebrile. Repeat blood cultures have been negative. Patient is being continued cefazolin due to emesis bacteremia. Dialysis access catheter was removed. ID and nephrology is following. Discussed with the family at bedside in detail. 10/23/2020 Patient is currently resting in bed comfortably. Awake alert and at baseline. Patient has been afebrile. Repeat blood cultures have been negative. Otherwise laboratory data showed WBC trending down to 15.8 today hemoglobin 8.6 and platelets 456 BUN 60 and creatinine 6.0 Nephrology is planning dialysis catheter placement. Vascular surgery was consulted. 10/24/2020 Patient is currently lying in the bed awake alert and oriented x2. Maintain patient on dialysis. Permacath was placed yesterday. Nephrology is planning for hemodialysis today. Patient is being continued on cefazolin for MRSA bacteremia. Laboratory data showed WBC 18.5 hemoglobin 8.1 platelets 390 WBCs trending up today. CT of the abdomen pelvis were ordered for any possible source of infection. ID is on board. Patient has been afebrile. Tachycardia with heart rate around 104. Pulse ox is 97% on room air. No nausea vomiting or abdominal pain or diarrhea. 10/25/2020 Patient is currently sitting the cheek. No complaints ofchest pain or shortness breath. Patient was started on hemodialysis and had full run of Dialysis yesterday. no nausea vomiting or abdominal pain or diarrhea. CT of the abdomen pelvis showed no evidence of infection. Patient is still having leukocytosis at 18.06. Continue on cefazolin and ID is on board.next and follow CBC tomorrow. Current medications reviewed. Constitutional: Denied any fatigue denied any fever. Cardio vascular: denied any chest pain, palpitations Gastrointestinal denied any nausea vomiting Pulmonary: Denied any shortness of breath cough Neurologic denied any new focal deficits All inpatient medications were reviewed and appropriate changes in these medications as dictated in the interval history and assessment and plan. Objective - Vital Signs Vital signs: Vital Signs Temp 98.2 F 10/25/20 18:51 Pulse 107 H 10/25/20 18:51 Resp 18 10/25/20 18:51 BP 116/65 10/25/20 18:51 Pulse Ox 97 10/25/20 18:51 Intake & Output 10/25/20 10/25/20 10/26/20 06:59 18:59 06:59 Intake Total 300 Balance 300 Intake: Oral 300 Other: Voiding Method Bedpan Diaper # Voids 3 # Bowel Movements 1 - Exam PHYSICAL EXAMINATION: GENERAL: The patient is alert and oriented x2-3, not in any acute distress. Well developed, well nourished. HEENT: Pupils are round and equally reacting to light. EOMI. No scleral icterus. No conjunctival pallor. Normocephalic, atraumatic. No pharyngeal erythema. No thyromegaly. CARDIOVASCULAR: S1 and S2 present. No murmurs, rubs, or gallops. PULMONARY: Chest is clear to auscultation, no wheezing or crackles. ABDOMEN: Soft, nontender, nondistended, normoactive bowel sounds. No palpable organomegaly. MUSCULOSKELETAL: Left knee swelling as mentioned above EXTREMITIES: No cyanosis, clubbing, or pedal edema. NEUROLOGICAL: Gross neurological examination did not reveal any focal deficits. SKIN: Surgical site in the left knee is clean . - Labs CBC & Chem 7: 10/25/20 05:25 10/25/20 05:25 Labs: Abnormal Lab Results - Last 24 Hours (Table) 10/25/20 10/25/20 Range/Units 05:25 05:25 WBC 18.06 H (4.50-10.00) X 10*3/uL RBC 2.38 L (4.10-5.20) X 10*6/uL Hgb 7.3 L (12.0-15.0) g/dL Hct 24.7 L (37.2-46.3) % MCV 103.8 H (80.0-97.0) fL MCHC 29.6 L (32.0-37.0) g/dL RDW 17.5 H (11.5-14.5) % Absolute Nucleated RBC 0.02 H (0.00-0.00) X 10*3/uL Immature Gran # 0.58 H (0.00-0.04) X 10*3/uL Neutrophils # 15.52 H (1.80-7.70) X 10*3/uL NRBC/100 WBC Diff 0.1 H (0.0-0.0) /100 WBCS BUN 48.0 H (9.0-27.0) mg/dL Creatinine 5.3 H (0.6-1.5) mg/dL Est GFR (CKD-EPI)AfAm 9.7 L (60.0-200.0) Est GFR (CKD-EPI)NonAf 8.4 L (60.0-200.0) BUN/Creatinine Ratio 9.06 L (12.00-20.00) Ratio Microbiology - Last 24 Hours (Table) 10/20/20 08:07 Blood Culture - Preliminary Blood No Growth after 120 hours 10/22/20 07:11 Blood Culture - Preliminary Blood No Growth after 72 hours 10/21/20 06:25 Blood Culture - Preliminary Blood No Growth after 96 hours Assessment and Plan Assessment: -Sepsis secondary to MSSA bacteremia , patient had persistent bacteremia second iris to permacath which was removed. Patient also has paternal dialysis catheterwhich was removed.. Patient had a recent left knee surgery although that doesn't appear to be a source of infection. Patient had persistent bacteremia in spite of it of removal of permacath. . Blood cultures since 10/20 has been negative. ID is following. WBC is still elevated.. CT of the abdomen pelvis was ordered for possible source of infection.elevated.no acute process noted. Follow-up CBC and BMP tomorrow. -Hyponatremia: Secondary to renal failure patient is on peritoneal dialysis, sodium is improving -Leukocytosis secondary to sepsis -Hyperlipidemia -End-stage renal disease on hemodialysiscurrently.patient was on peritoneal dialysis at home. -Hypertension -Anemia of chronic disease. DVT prophylaxis with heparin Plan: Patient will be continued on antibiotics involve cefazolin. Patient is currently on peritoneal dialysis which can be done at rehab. permacath was placed and patient had dialysis yesterday. Nephrology is following. Repeat blood cultures have been negative.WBC is trending up today. CT of the abdomen pelvis was ordered for possible source of infection.ID is on board. Time with Patient: Greater than 30
--- NOTE | 2020-10-26 10:46 | P.PN ---
Subjective Patient is seen in follow-up for end-stage renal disease. Peritoneal dialysis held. Started on hemodialysis October 24. Hemodynamically stable. No active complaints. Vital signs are stable. General: The patient appeared well nourished and normally developed. HEENT: Head exam is unremarkable. Neck is without jugular venous distension. LUNGS: Breath sounds decreased. HEART: Rate and Rhythm are regular. ABDOMEN: Soft, no distention. EXTREMITITES: No edema. Objective - Vital Signs Vital signs: Vital Signs Temp 98.3 F 10/26/20 07:07 Pulse 90 10/26/20 07:07 Resp 18 10/26/20 07:10 BP 118/68 10/26/20 07:07 Pulse Ox 96 10/26/20 07:07 Intake & Output 10/25/20 10/26/20 10/26/20 18:59 06:59 18:59 Intake Total 300 Balance 300 Intake: Oral 300 Other: Voiding Method Bedpan Bedpan Diaper Diaper # Voids 2 # Bowel Movements 1 1 - Labs CBC & Chem 7: 10/25/20 05:25 10/25/20 05:25 Labs: Microbiology - Last 24 Hours (Table) 10/22/20 07:11 Blood Culture - Preliminary Blood No Growth after 96 hours 10/21/20 06:25 Blood Culture - Preliminary Blood No Growth after 120 hours 10/20/20 08:07 Blood Culture - Preliminary Blood No Growth after 120 hours Assessment and Plan Plan: Assessment: 1. End-stage renal disease maintained on peritoneal dialysis. 2. MSSA bacteremia secondary to permacath. Permacath removed and new one placed October 24. Maintained on antibiotics. 3. Hypertension with chronic kidney disease. Stable. 4. Anemia of chronic kidney disease maintained on Aranesp. 5. Chronic kidney disease mineral bone disease maintained on Renvela. Plan: Hemodialysis today. Patient will be going to rehab upon discharge. Currently no rehab will do peritoneal dialysis. Therefore she will be transitioned to hemodialysis temporarily and peritoneal dialysis will be resumed once she is back home from the rehab. Monitor vancomycin levels. Target level near 15.
[2020-10-26 11:53] LABS: Basophils # (A) 0.05 X 10*3/uL (0.00-0.10); Basophils % (A) 0.3 %; Eosinophils # (A) 0.08 X 10*3/uL (0.04-0.35); Eosinophils % (A) 0.5 %; HCT 25.4 % (37.2-46.3); HGB 7.5 g/dL (12.0-15.0); Lymphocytes # (A) 1.25 X 10*3/uL (0.90-5.00); Lymphocytes % (A) 8.5 %; MCH 30.7 pg (27.0-32.0); MCHC 29.5 g/dL (32.0-37.0); MCV 104.1 fL (80.0-97.0); Mean Platelet Volume 10.4 fL (9.5-12.2); Monocytes # (A) 0.51 X 10*3/uL (0.20-1.00); Monocytes % (A) 3.5 %; Neutrophils # (A) 12.48 X 10*3/uL (1.80-7.70); Neutrophils % (A) 84.6 %; Platelet Count 356 X 10*3/uL (140-440); RBC 2.44 X 10*6/uL (4.10-5.20); RDW 17.7 % (11.5-14.5); WBC 14.76 X 10*3/uL (4.50-10.00)
[2020-10-26] MEDS: DARBEPOETIN ALFA 60 MCG/0.3 ML SYRINGE SQ SCH (15:49)
--- NOTE | 2020-10-26 18:08 | PN ---
PROGRESS NOTE DATE OF SERVICE: 10/26/2020 REASON FOR FOLLOWUP: MSSA bacteremia secondary to PermCath infection. INTERVAL HISTORY: Patient is afebrile. The patient is breathing comfortably. The patient denies having any chest pain, shortness of breath or cough. No nausea, vomiting. No abdominal pain. No diarrhea. PHYSICAL EXAMINATION: Blood pressure is 118/68 with a pulse of 90, temperature 98.3. She is 96% on room air. General description is a middle-aged female lying in bed in no distress. Respiratory system: Unlabored breathing. Clear to auscultation anteriorly. Heart S1, S2. Regular rate and rhythm. Abdomen soft, no tenderness. LABS: Hemoglobin 7.5, white count down to 14.76. DIAGNOSTIC IMPRESSION AND PLAN: Patient with MSSA bacteremia secondary to PermCath infection that has been discontinued in order to avoid placing a PICC line in this dialysis patient. Antibiotic has been switched to vancomycin, Pharmacy to dose for another 2 weeks and close outpatient followup. MMODL / IJN: [id number] /
[2020-10-26] MEDS: ATORVASTATIN 10 MG TAB PO SCH (20:04)
[2020-10-26] MEDS ORDERED: VANCOMYCIN 1,500 MG in SODIUM CHLORIDE 0.9% 250 ML IVPB ONE (21:00)
[2020-10-27] MEDS: SODIUM CHLORIDE 0.9% 1,000 ML IV SCH ×2 (01:09→20:37)
--- NOTE | 2020-10-27 01:21 | P.PN ---
Subjective Progress Note Date: 10/26/20 Principal diagnosis: MSSA bacteremia 55-year-old female was brought to the hospital because of fever and generalized weakness. Patient had a recent left knee surgery on 09/25/2020 and the patient has been unable to bear weight for last few days on the left knee. Patient also has recurrent dialysis catheter and the patient's dialysate was cloudy. Patient also has right-sided permacath with the some redness around the neck area. Patient denied any cough dysuria. Urine analysis is bit abnormal with some large leukocyte esterase and WBC in the urine. Patient does have increased swelling in the left leg where she had a surgery of the surgical site appears to be clean patient the does have some pain with movement of this leg. The dialysis catheter was placed about 3 weeks ago during her hospitalization just before discharge. 10/18/2020 Patient wasn't evaluated by infectious disease and patient is being continued on vancomycin patient had a low-grade fever last night. A concern is permacath infection. Patient also has a peroneal dialysis catheter peritoneal fluid is being sent for analysis. Patient also had a right knee surgery possibility that his right knee , the source of infection is low. We'll 10/19/2020 Patient has persistent bacteremia patient has MSSA, patient was switched to ceftezole and vancomycin was discontinued. Because of persistent bacteremia permacath was discontinued yesterday. Obtaining repeat blood cultures for today and tomorrow morning. 10/20/2020 Serum sodium improved to 135 potassium is 3.4 which will be replaced. Patient is a peroneal dialysis dependent presents in creatinine is 5.92. Patient can use to have bacteremia. Infectious disease is following the patient. 10/21/2020 Patient the blood cultures are positive from fourth around have any other blood cultures available I did order to be blood cultures for today and tomorrow morning. And patient is afebrile. 10/22/2020 Patient is currently resting in the bed. Mentation is at baseline. Afebrile. Repeat blood cultures have been negative. Patient is being continued cefazolin due to emesis bacteremia. Dialysis access catheter was removed. ID and nephrology is following. Discussed with the family at bedside in detail. 10/23/2020 Patient is currently resting in bed comfortably. Awake alert and at baseline. Patient has been afebrile. Repeat blood cultures have been negative. Otherwise laboratory data showed WBC trending down to 15.8 today hemoglobin 8.6 and platelets 456 BUN 60 and creatinine 6.0 Nephrology is planning dialysis catheter placement. Vascular surgery was consulted. 10/24/2020 Patient is currently lying in the bed awake alert and oriented x2. Maintain patient on dialysis. Permacath was placed yesterday. Nephrology is planning for hemodialysis today. Patient is being continued on cefazolin for MRSA bacteremia. Laboratory data showed WBC 18.5 hemoglobin 8.1 platelets 390 WBCs trending up today. CT of the abdomen pelvis were ordered for any possible source of infection. ID is on board. Patient has been afebrile. Tachycardia with heart rate around 104. Pulse ox is 97% on room air. No nausea vomiting or abdominal pain or diarrhea. 10/25/2020 Patient is currently sitting the chair. No complaints ofchest pain or shortness breath. Patient was started on hemodialysis and had full run of Dialysis yesterday. no nausea vomiting or abdominal pain or diarrhea. CT of the abdomen pelvis showed no evidence of infection. Patient is still having leukocytosis at 18.06. Continue on cefazolin and ID is on board.next and follow CBC tomorrow. 10/26/2020 Patient is currently lying in the bed comfortably. No complaints of chest pain or shortness breath. No fever no chills. Lab data showed improving leukocytosis with WBC count 14.7 today. Patient is antibiotics in the form of vancomycin. ID is on board. Patient is being continued hemodialysis while in hospital and in the rehab. Can be transitioned back to peritoneal dialysis once patient is discharged home. Anticipate discharge to rehab in the next 24 hours. Continue with antibiotics in the form of vancomycin for 2 weeks as per ID recommendations. Current medications reviewed. Constitutional: Denied any fatigue denied any fever. Cardio vascular: denied any chest pain, palpitations Gastrointestinal denied any nausea vomiting Pulmonary: Denied any shortness of breath cough Neurologic denied any new focal deficits All inpatient medications were reviewed and appropriate changes in these medications as dictated in the interval history and assessment and plan. Objective - Vital Signs Vital signs: Vital Signs Temp 98.8 F 10/26/20 19:38 Pulse 88 10/26/20 20:00 Resp 18 10/26/20 20:00 BP 127/76 10/26/20 19:38 Pulse Ox 95 10/26/20 19:38 Intake & Output 10/26/20 10/26/20 10/27/20 06:59 18:59 06:59 Output Total 1000 Balance -1000 Weight 91.626 kg Output: Hemodialysis 1000 Other: Voiding Method Bedpan Bedpan Diaper Diaper # Voids 2 # Bowel Movements 1 - Exam PHYSICAL EXAMINATION: GENERAL: The patient is alert and oriented x2-3, not in any acute distress. Well developed, well nourished. HEENT: Pupils are round and equally reacting to light. EOMI. No scleral icterus. No conjunctival pallor. Normocephalic, atraumatic. No pharyngeal erythema. No thyromegaly. CARDIOVASCULAR: S1 and S2 present. No murmurs, rubs, or gallops. PULMONARY: Chest is clear to auscultation, no wheezing or crackles. ABDOMEN: Soft, nontender, nondistended, normoactive bowel sounds. No palpable organomegaly. MUSCULOSKELETAL: Left knee swelling as mentioned above EXTREMITIES: No cyanosis, clubbing, or pedal edema. NEUROLOGICAL: Gross neurological examination did not reveal any focal deficits. SKIN: Surgical site in the left knee is clean . - Labs CBC & Chem 7: 10/26/20 06:46 10/25/20 05:25 Labs: Abnormal Lab Results - Last 24 Hours (Table) 10/26/20 10/26/20 Range/Units 06:46 06:46 WBC 14.76 H (4.50-10.00) X 10*3/uL RBC 2.44 L (4.10-5.20) X 10*6/uL Hgb 7.5 L (12.0-15.0) g/dL Hct 25.4 L (37.2-46.3) % MCV 104.1 H (80.0-97.0) fL MCHC 29.5 L (32.0-37.0) g/dL RDW 17.7 H (11.5-14.5) % Immature Gran # 0.39 H (0.00-0.04) X 10*3/uL Neutrophils # 12.48 H (1.80-7.70) X 10*3/uL C-Reactive Protein 19.6 H (0.0-0.8) mg/dL Microbiology - Last 24 Hours (Table) 10/20/20 08:07 Blood Culture - Final Blood No Growth after 144 hours 10/22/20 07:11 Blood Culture - Preliminary Blood No Growth after 96 hours 10/21/20 06:25 Blood Culture - Preliminary Blood No Growth after 120 hours Assessment and Plan Assessment: -Sepsis secondary to MSSA bacteremia , patient had persistent bacteremia secondary to permacath which was removed. Patient also has paternal dialysis catheterwhich was removed.. Patient had a recent left knee surgery although that doesn't appear to be a source of infection. Patient had persistent bacteremia in spite of it of removal of permacath. . Blood cultures since 10/20/2020 has been negative. ID is following. WBC is still elevated.. CT of the abdomen pelvis was ordered for possible source of infection.elevated.no acute process noted. Follow-up CBC and BMP tomorrow. -Hyponatremia: Secondary to renal failure patient is on peritoneal dialysis, sodium is improving -Leukocytosis secondary to sepsis -Hyperlipidemia -End-stage renal disease on hemodialysiscurrently.patient was on peritoneal dialysis at home.Permacath placed back on October 24. -Hypertension -Anemia of chronic disease. DVT prophylaxis with heparin Plan: Patient will be continued on antibiotics cefazolin---> Vanco. Patient is currently on peritoneal dialysis which cannot be done at rehab. permacath was placed and patient is getting HD while in the hospital. Transition back to peritoneal versus once the patient is discharged home. Nephrology is following. Repeat blood cultures have been negative.WBC is trending downp today. CT of the abdomen pelvis showed no source of infection.ID is on board. Time with Patient: Greater than 30
[2020-10-27] MEDS: LEVOTHYROXINE 112 MCG TAB PO SCH (06:10)
[2020-10-27] MEDS: FERROUS SULFATE 325 MG TAB PO SCH (07:14)
[2020-10-27] MEDS: FLUCONAZOLE 100 MG TAB PO SCH (07:14)
[2020-10-27] MEDS: allopurinoL 100 MG TAB PO SCH (07:14)
[2020-10-27] MEDS: amLODIPine 2.5 MG TAB PO SCH (07:14)
[2020-10-27] MEDS: FUROSEMIDE 40 MG TAB PO SCH ×2 (07:14→15:39)
[2020-10-27] MEDS: SEVELAMER 800 MG TAB PO SCH ×2 (07:15→17:08)
[2020-10-27] MEDS: ACETAMINOPHEN TAB 325 MG TAB PO PRN (08:14)
--- NOTE | 2020-10-27 08:52 | P.PN ---
Subjective Patient is seen in follow-up for end-stage renal disease. Peritoneal dialysis held. Started on hemodialysis October 24. Hemodynamically stable. No active complaints. Vital signs are stable. General: The patient appeared well nourished and normally developed. HEENT: Head exam is unremarkable. Neck is without jugular venous distension. LUNGS: Breath sounds decreased. HEART: Rate and Rhythm are regular. ABDOMEN: Soft, no distention. EXTREMITITES: No edema. Objective - Vital Signs Vital signs: Vital Signs Temp 99.1 F 10/27/20 07:13 Pulse 87 10/27/20 07:13 Resp 16 10/27/20 07:13 BP 115/68 10/27/20 07:13 Pulse Ox 93 L 10/27/20 07:13 Intake & Output 10/26/20 10/27/20 10/27/20 18:59 06:59 18:59 Intake Total 250 Output Total 1000 Balance -750 Weight 91.626 kg Intake: Intake, IV Titration 250 Amount Vancomycin 1,500 mg In 250 Sodium Chloride 0.9% 250 ml @ 125 mls/hr IVPB ONCE ONE Rx#:[id number] Output: Hemodialysis 1000 Other: Voiding Method Bedpan Bedpan Diaper Diaper # Voids 1 - Labs CBC & Chem 7: 10/26/20 06:46 10/25/20 05:25 Labs: Abnormal Lab Results - Last 24 Hours (Table) 10/26/20 10/26/20 Range/Units 06:46 06:46 WBC 14.76 H (4.50-10.00) X 10*3/uL RBC 2.44 L (4.10-5.20) X 10*6/uL Hgb 7.5 L (12.0-15.0) g/dL Hct 25.4 L (37.2-46.3) % MCV 104.1 H (80.0-97.0) fL MCHC 29.5 L (32.0-37.0) g/dL RDW 17.7 H (11.5-14.5) % Immature Gran # 0.39 H (0.00-0.04) X 10*3/uL Neutrophils # 12.48 H (1.80-7.70) X 10*3/uL C-Reactive Protein 19.6 H (0.0-0.8) mg/dL Microbiology - Last 24 Hours (Table) 10/20/20 08:07 Blood Culture - Final Blood No Growth after 144 hours 10/22/20 07:11 Blood Culture - Preliminary Blood No Growth after 96 hours 10/21/20 06:25 Blood Culture - Preliminary Blood No Growth after 120 hours Assessment and Plan Plan: Assessment: 1. End-stage renal disease maintained on peritoneal dialysis. 2. MSSA bacteremia secondary to permacath. Permacath removed and new one placed October 24. Maintained on antibiotics. 3. Hypertension with chronic kidney disease. Stable. 4. Anemia of chronic kidney disease maintained on Aranesp. 5. Chronic kidney disease mineral bone disease maintained on Renvela. Plan: Short hemodialysis treatment today. She will be maintained on Thursday schedule outpatient. Patient will be going to rehab upon discharge. Currently no rehab will do peritoneal dialysis. Therefore she will be transitioned to hemodialysis temporarily and peritoneal dialysis will be resumed once she is back home from the rehab. Monitor vancomycin levels. Target level near 15.
[2020-10-27 12:03] LABS: African American GFR (CKD) 12.9 (60.0-200.0); Anion Gap 9.3 mmol/L (4.00-12.00); Calcium 9.3 mg/dL (8.7-10.3); Carbon Dioxide 27.7 mmol/L (21.6-31.8); Non-African American GFR(CKD) 11.1 (60.0-200.0); Potassium 4.5 mmol/L (3.5-5.5)
[2020-10-27 13:22] LABS: Basophils # (A) 0.03 X 10*3/uL (0.00-0.10); Basophils % (A) 0.2 %; Eosinophils # (A) 0.12 X 10*3/uL (0.04-0.35); Eosinophils % (A) 0.9 %; HCT 23.7 % (37.2-46.3); Lymphocytes # (A) 1.14 X 10*3/uL (0.90-5.00); Lymphocytes % (A) 8.6 %; MCH 30.7 pg (27.0-32.0); MCHC 29.5 g/dL (32.0-37.0); MCV 103.9 fL (80.0-97.0); Mean Platelet Volume 10.4 fL (9.5-12.2); Monocytes # (A) 0.61 X 10*3/uL (0.20-1.00); Monocytes % (A) 4.6 %; Neutrophils # (A) 11.08 X 10*3/uL (1.80-7.70); Neutrophils % (A) 84.2 %; Platelet Count 361 X 10*3/uL (140-440); RBC 2.28 X 10*6/uL (4.10-5.20); RDW 17.3 % (11.5-14.5); WBC 13.18 X 10*3/uL (4.50-10.00)
[2020-10-27] MEDS: ATORVASTATIN 10 MG TAB PO SCH (20:12)
--- NOTE | 2020-10-27 23:27 | PN ---
PROGRESS NOTE DATE OF SERVICE: 10/27/2020 REASON FOR FOLLOWUP: MSSA bacteremia secondary to PermCath infection. INTERVAL HISTORY: Patient is afebrile. The patient is breathing comfortably. The patient denies having any chest pain, shortness of breath or cough. No abdominal pain or diarrhea. PHYSICAL EXAMINATION: Blood pressure 120/72 with a pulse of 85, temperature 98.3. She is 95% on room air. General description is a middle-aged female lying in bed in no distress. Respiratory system: Unlabored breathing, decreased breath sounds in the bases. No wheeze. Heart S1, S2. Regular rate and rhythm. ABDOMEN: Soft, no tenderness. The patient did have swelling of her vaginal area but no redness or any drainage. LABS: Hemoglobin is 7, white count of 13.1, BUN of 42, creatinine 4.2. Blood culture repeat has been negative. DIAGNOSTIC IMPRESSION AND PLAN: 1. Patient with MSSA bacteremia secondary to PermCath infection which was discontinued. Subsequently, the blood culture has been negative. The patient antibiotic was switched to vancomycin to avoid PICC line placement. Plan is for another 10 days of IV vancomycin through the dialysis. 2. The patient did have elevated white count with concern for possible oropharyngeal candidiasis. White count responded to Diflucan for another week. 3. The patient did have significant swelling of her vaginal area could be related to the fluid overload state and may benefit from a [employer] evaluation. MMMAKENZIEL / DINAN: [id number] /
[2020-10-28] MEDS: LEVOTHYROXINE 112 MCG TAB PO SCH (05:34)
[2020-10-28] MEDS: FERROUS SULFATE 325 MG TAB PO SCH (06:54)
[2020-10-28] MEDS: FLUCONAZOLE 100 MG TAB PO SCH (06:54)
[2020-10-28] MEDS: allopurinoL 100 MG TAB PO SCH (06:54)
[2020-10-28] MEDS: FUROSEMIDE 40 MG TAB PO SCH ×2 (06:55→16:32)
[2020-10-28] MEDS: amLODIPine 2.5 MG TAB PO SCH (06:55)
[2020-10-28] MEDS: SEVELAMER 800 MG TAB PO SCH ×2 (06:55→16:32)
--- NOTE | 2020-10-28 09:32 | P.PN ---
Subjective Patient is seen in follow-up for end-stage renal disease. Peritoneal dialysis held. Started on hemodialysis October 24. Hemodynamically stable. No active complaints. Wants to go home. Vital signs are stable. General: The patient appeared well nourished and normally developed. HEENT: Head exam is unremarkable. Neck is without jugular venous distension. LUNGS: Breath sounds decreased. HEART: Rate and Rhythm are regular. ABDOMEN: Soft, no distention. EXTREMITITES: No edema. Objective - Vital Signs Vital signs: Vital Signs Temp 98.4 F 10/28/20 06:52 Pulse 92 10/28/20 06:52 Resp 16 10/28/20 07:15 BP 124/73 10/28/20 06:52 Pulse Ox 96 10/28/20 06:52 Intake & Output 10/27/20 10/28/20 10/28/20 18:59 06:59 18:59 Output Total 1500 Balance -1500 Output: Hemodialysis 1500 Other: Voiding Method Bedside Commode Bedside Commode Diaper Diaper - Labs CBC & Chem 7: 10/27/20 06:26 10/27/20 06:26 Labs: Abnormal Lab Results - Last 24 Hours (Table) 10/27/20 10/27/20 Range/Units 06:26 06:26 WBC 13.18 H (4.50-10.00) X 10*3/uL RBC 2.28 L (4.10-5.20) X 10*6/uL Hgb 7.0 L (12.0-15.0) g/dL Hct 23.7 L (37.2-46.3) % MCV 103.9 H (80.0-97.0) fL MCHC 29.5 L (32.0-37.0) g/dL RDW 17.3 H (11.5-14.5) % Immature Gran # 0.20 H (0.00-0.04) X 10*3/uL Neutrophils # 11.08 H (1.80-7.70) X 10*3/uL BUN 42.0 H (9.0-27.0) mg/dL Creatinine 4.2 H (0.6-1.5) mg/dL Est GFR (CKD-EPI)AfAm 12.9 L (60.0-200.0) Est GFR (CKD-EPI)NonAf 11.1 L (60.0-200.0) BUN/Creatinine Ratio 10.00 L (12.00-20.00) Ratio Microbiology - Last 24 Hours (Table) 10/22/20 07:11 Blood Culture - Preliminary Blood No Growth after 120 hours 10/21/20 06:25 Blood Culture - Final Blood No Growth after 144 hours Assessment and Plan Plan: Assessment: 1. End-stage renal disease maintained on peritoneal dialysis. 2. MSSA bacteremia secondary to permacath. Permacath removed and new one placed October 24. Maintained on antibiotics. 3. Hypertension with chronic kidney disease. Stable. 4. Anemia of chronic kidney disease maintained on Aranesp. 5. Chronic kidney disease mineral bone disease maintained on Renvela. Plan: Hemodialysis on Thursday. She will be maintained on Thursday schedule outpatient. Patient will be going to rehab upon discharge. Currently no rehab will do peritoneal dialysis. Therefore she will be transitioned to hemodialysis temporarily and peritoneal dialysis will be resumed once she is back home from the rehab. Monitor vancomycin levels. Target level near 15. Check CBC today. If hemoglobin drops further, will need a blood transition.
[2020-10-28 11:14] LABS: Anisocytosis Slight; HCT 26.7 % (34.0-46.0); Hypochromasia Marked; MCH 30.2 pg (25.0-35.0); MCHC 29.9 g/dL (31.0-37.0); Macrocytosis Slight; Mean Platelet Volume 10.3; Platelet Count 358 k/uL (150-450); RBC 2.64 m/uL (3.80-5.40); RDW 16.5 % (11.5-15.5); WBC 12.8 k/uL (3.8-10.6)
[2020-10-28] MEDS: ACETAMINOPHEN TAB 325 MG TAB PO PRN ×2 (11:54→18:46)
--- NOTE | 2020-10-28 14:21 | P.PN ---
Subjective Progress Note Date: 10/28/20 Principal diagnosis: MSSA Bactremia Ms. Edwards is a 55-year-old female with a past medical history of hypertension, hyperlipidemiaa, ESRD on peritoneal dialysis, thyroid disorder, degenerative joint disease coming into the hospital for generalized weakness and fever. Reyes mendes was found to have bacteremia from blood cultures done on 10/19/2020. It was showing Staph aureus. The source for MSSA bacteremia is thought to be permacath infection. Permacath has been discontinued. As the patient showed no improvement cefazolin, antibiotic was changed to vancomycin by ID. Patient is being continued on hemodialysis. On 10/27/2020 -patient is seen and examined. She is comfortably lying in bed appears to be in no distress. She is currently getting her hemodialysis done at bedside. Patient denies having any chest pain or palpitations. No cough or difficulty breathing. No fevers chills or rigors. No abdominal pain nausea vomiting or diarrhea.On reviewing the vitals temperature of 98.5, heart rate between 80s to 100s, blood pressure 121/69, saturating at 93% on room air. Reviewing the labs white count of 13.1, hemoglobin 7, MCV 103, platelets 361. Sodium 137, potassium 4.5, chloride 100, bicarb 27, BUN 42, creatinine 4.2 CRP 19.6 hepatitis acute panel negative. On 10/28/2020 - patient is seen and examined. She has no active complaints and lying comfortably in bed. As per discussion with nursing staff, yesterday the family members noticed the patient has swelling of her labial folds which they stated was near. Patient is not a good historian so could not provide history on when the swelling started. Patient denies having any pain or itching in her vaginal area. On reviewing the vitals temperature of 98.3, heart rate 92, respiratory 16, blood pressure 110/73, saturating at 96% on room air. On reviewing labs from this morning white count of 12.8, hemoglobin 8, platelets 358. Active Medications Generic Name Dose Route Start Last Admin Trade Name Freq PRN Reason Stop Dose Admin Acetaminophen 650 mg 10/16/20 23:19 10/28/20 11:54 Acetaminophen Tab 325 Mg Tab PO 650 mg Q6HR PRN Administration Mild Pain or Fever > 100.5 Allopurinol 100 mg 10/18/20 09:00 10/28/20 06:54 Allopurinol 100 Mg Tab PO 100 mg DAILY KAYLIN Administration Amlodipine Besylate 2.5 mg 10/19/20 09:00 10/28/20 06:55 Amlodipine 2.5 Mg Tab PO 2.5 mg DAILY KAYLIN Administration Atorvastatin Calcium 10 mg 10/17/20 21:00 10/27/20 20:12 Atorvastatin 10 Mg Tab PO 10 mg HS KAYLIN Administration Darbepoetin Felipe 60 mcg 10/19/20 15:00 10/26/20 15:49 Darbepoetin Felipe 60 Mcg/0.3 Ml Syringe SQ 60 mcg Q7D KAYLIN Administration Ferrous Sulfate 325 mg 10/17/20 09:00 10/28/20 06:54 Ferrous Sulfate 325 Mg Tab PO 325 mg DAILY KAYLIN Administration Fluconazole 100 mg 10/25/20 09:00 10/28/20 06:54 Fluconazole 100 Mg Tab PO 100 mg DAILY KAYLIN Administration Furosemide 40 mg 10/17/20 09:00 10/28/20 06:55 Furosemide 40 Mg Tab PO 40 mg BID@0900,1600 KAYLIN Administration Sodium Chloride 1,000 mls @ 20 mls/hr 10/16/20 23:30 10/27/20 20:37 Saline 0.9% IV Not Given .Q24H [facility] Levothyroxine Sodium 112 mcg 10/17/20 06:30 10/28/20 05:34 Levothyroxine 112 Mcg Tab PO 112 mcg DAILY@0630 KAYLIN Administration Miscellaneous Information 1 each 10/25/20 22:01 Vancomycin Iv Per Pharmacy 1 Each Mis MISCELLANE DIRECTED PRN Per Protocol Protocol Naloxone HCl 0.2 mg 10/16/20 23:19 Naloxone 0.4 Mg/Ml 1 Ml Vial IV Q2M PRN Opioid Reversal Ondansetron HCl 4 mg 10/16/20 23:19 Ondansetron 4 Mg/2 Ml Vial IVP Q8HR PRN Nausea And Vomiting Sevelamer Carbonate 800 mg 10/17/20 07:30 10/28/20 06:55 Sevelamer 800 Mg Tab PO 800 mg BID-W/MEALS KAYLIN Administration Objective - Vital Signs Vital signs: Vital Signs Temp 98.4 F 10/28/20 06:52 Pulse 92 10/28/20 06:52 Resp 16 10/28/20 07:15 BP 124/73 10/28/20 06:52 Pulse Ox 96 10/28/20 06:52 Intake & Output 10/27/20 10/28/20 10/28/20 18:59 06:59 18:59 Output Total 1500 Balance -1500 Output: Hemodialysis 1500 Other: Voiding Method Bedside Commode Bedside Commode Diaper Diaper - Exam PHYSICAL EXAMINATION: GENERAL: The patient is alert and oriented x2-3, not in any acute distress. Well developed, well nourished. HEENT: Pupils are round and equally reacting to light. EOMI. No scleral icterus. No conjunctival pallor. Normocephalic, atraumatic. No pharyngeal erythema. No thyromegaly. CARDIOVASCULAR: S1 and S2 present. No murmurs, rubs, or gallops. PULMONARY: Chest is clear to auscultation, no wheezing or crackles. ABDOMEN: Soft, nontender, nondistended, normoactive bowel sounds. No palpable organomegaly. MUSCULOSKELETAL: Left knee swelling as mentioned above EXTREMITIES: No cyanosis, clubbing, or pedal edema. Examination of the pelvic area- nystatin powder in the inguinal folds. Swelling of the labia minora bilaterally left more than right. No tenderness. NEUROLOGICAL: Gross neurological examination did not reveal any focal deficits. SKIN: Surgical site in the left knee is clean . - Labs CBC & Chem 7: 10/28/20 09:32 10/27/20 06:26 Labs: Abnormal Lab Results - Last 24 Hours (Table) 10/28/20 Range/Units 09:32 WBC 12.8 H (3.8-10.6) k/uL RBC 2.64 L (3.80-5.40) m/uL Hgb 8.0 L (11.4-16.0) gm/dL Hct 26.7 L (34.0-46.0) % MCV 101.0 H (80.0-100.0) fL MCHC 29.9 L (31.0-37.0) g/dL RDW 16.5 H (11.5-15.5) % Microbiology - Last 24 Hours (Table) 10/22/20 07:11 Blood Culture - Final Blood No Growth after 144 hours Assessment and Plan Assessment: Assessment: -Sepsis secondary to MSSA bacteremia , patient had persistent bacteremia secondary to permacath which was removed. -Hyponatremia- resolved -Leukocytosis secondary to sepsis- WBC count trending down -Hyperlipidemia -End-stage renal disease on hemodialysis currently -Hypertension -Anemia of chronic disease. DVT prophylaxis with heparin PLAN: Patient was having MSSA bacteremia, possible source being permacath that was removed. Patient also has peritoneal dialysis catheter, that was removed. Peritonial fluid analysis was negative for any infection. She was started on cefazolin for MSSA, later on switched to vancomycin by GLADYS Randhawa, to avoid PICC line placement. Patient was also started on Diflucan for oral candidiasis. As the patient has labial swelling, LINING CUTTER consult has been placed today. ornamental metal worker on board and possible NAHUM placement tomorrow. Further recommendations depending on the progress of the patient
[2020-10-28] MEDS: ATORVASTATIN 10 MG TAB PO SCH (20:01)
[2020-10-28] MEDS: SODIUM CHLORIDE 0.9% 1,000 ML IV SCH (21:05)
--- NOTE | 2020-10-28 22:38 | P.PN ---
Subjective Progress Note Date: 10/27/20 Principal diagnosis: MSSA Bactremia Ms. Edwards is a 55-year-old female with a past medical history of hypertension, hyperlipidemiaa, ESRD on peritoneal dialysis, thyroid disorder, degenerative joint disease coming into the hospital for generalized weakness and fever. Reyes mendes was found to have bacteremia from blood cultures done on 10/19/2020. It was showing Staph aureus. The source for MSSA bacteremia is thought to be permacath infection. Permacath has been discontinued. As the patient showed no improvement cefazolin, antibiotic was changed to vancomycin by ID. Patient is being continued on hemodialysis. On 10/27/2020 -patient is seen and examined. She is comfortably lying in bed appears to be in no distress. She is currently getting her hemodialysis done at bedside. Patient denies having any chest pain or palpitations. No cough or difficulty breathing. No fevers chills or rigors. No abdominal pain nausea vomiting or diarrhea.On reviewing the vitals temperature of 98.5, heart rate between 80s to 100s, blood pressure 121/69, saturating at 93% on room air. Reviewing the labs white count of 13.1, hemoglobin 7, MCV 103, platelets 361. Sodium 137, potassium 4.5, chloride 100, bicarb 27, BUN 42, creatinine 4.2 CRP 19.6 hepatitis acute panel negative. Active Medications Acetaminophen (Acetaminophen Tab 325 Mg Tab) 650 mg PO Q6HR PRN PRN Reason: Mild Pain or Fever > 100.5 Last Admin: 10/27/20 08:14 Dose: 650 mg Documented by: Allopurinol (Allopurinol 100 Mg Tab) 100 mg PO DAILY [facility] Last Admin: 10/27/20 07:14 Dose: 100 mg Documented by: Amlodipine Besylate (Amlodipine 2.5 Mg Tab) 2.5 mg PO DAILY [facility] Last Admin: 10/27/20 07:14 Dose: 2.5 mg Documented by: Atorvastatin Calcium (Atorvastatin 10 Mg Tab) 10 mg PO HS [facility] Last Admin: 10/27/20 20:12 Dose: 10 mg Documented by: Darbepoetin Felipe (Darbepoetin Felipe 60 Mcg/0.3 Ml Syringe) 60 mcg SQ Q7D [facility] Last Admin: 10/26/20 15:49 Dose: 60 mcg Documented by: Ferrous Sulfate (Ferrous Sulfate 325 Mg Tab) 325 mg PO DAILY [facility] Last Admin: 10/27/20 07:14 Dose: 325 mg Documented by: Fluconazole (Fluconazole 100 Mg Tab) 100 mg PO DAILY [facility] Last Admin: 10/27/20 07:14 Dose: 100 mg Documented by: Furosemide (Furosemide 40 Mg Tab) 40 mg PO BID@0900,1600 [facility] Last Admin: 10/27/20 15:39 Dose: 40 mg Documented by: Sodium Chloride (Saline 0.9%) 1,000 mls @ 20 mls/hr IV .Q24H [facility] Last Admin: 10/27/20 20:37 Dose: Not Given Documented by: Levothyroxine Sodium (Levothyroxine 112 Mcg Tab) 112 mcg PO DAILY@0630 [facility] Last Admin: 10/27/20 06:10 Dose: 112 mcg Documented by: Miscellaneous Information (Vancomycin Iv Per Pharmacy 1 Each Misc) 1 each MISCELLANE DIRECTED PRN; Protocol PRN Reason: Per Protocol Naloxone HCl (Naloxone 0.4 Mg/Ml 1 Ml Vial) 0.2 mg IV Q2M PRN PRN Reason: Opioid Reversal Ondansetron HCl (Ondansetron 4 Mg/2 Ml Vial) 4 mg IVP Q8HR PRN PRN Reason: Nausea And Vomiting Sevelamer Carbonate (Sevelamer 800 Mg Tab) 800 mg PO BID-W/MEALS [facility] Last Admin: 10/27/20 17:08 Dose: Not Given Documented by: Objective - Vital Signs Vital signs: Vital Signs Temp 99.1 F 10/27/20 07:13 Pulse 87 10/27/20 07:13 Resp 16 10/27/20 07:15 BP 115/68 10/27/20 07:13 Pulse Ox 93 L 10/27/20 07:13 Intake & Output 10/26/20 10/27/20 10/27/20 18:59 06:59 18:59 Intake Total 250 Output Total 1000 Balance -750 Weight 91.626 kg Intake: Intake, IV Titration 250 Amount Vancomycin 1,500 mg In 250 Sodium Chloride 0.9% 250 ml @ 125 mls/hr IVPB ONCE ONE Rx#:[id number] Output: Hemodialysis 1000 Other: Voiding Method Bedpan Bedpan Bedside Commode Diaper Diaper Diaper # Voids 1 - Exam PHYSICAL EXAMINATION: GENERAL: The patient is alert and oriented x2-3, not in any acute distress. Well developed, well nourished. HEENT: Pupils are round and equally reacting to light. EOMI. No scleral icterus. No conjunctival pallor. Normocephalic, atraumatic. No pharyngeal erythema. No thyromegaly. CARDIOVASCULAR: S1 and S2 present. No murmurs, rubs, or gallops. PULMONARY: Chest is clear to auscultation, no wheezing or crackles. ABDOMEN: Soft, nontender, nondistended, normoactive bowel sounds. No palpable organomegaly. MUSCULOSKELETAL: Left knee swelling as mentioned above EXTREMITIES: No cyanosis, clubbing, or pedal edema. NEUROLOGICAL: Gross neurological examination did not reveal any focal deficits. SKIN: Surgical site in the left knee is clean . - Labs CBC & Chem 7: 10/28/20 09:32 10/27/20 06:26 Labs: Abnormal Lab Results - Last 24 Hours (Table) 10/26/20 10/27/20 Range/Units 06:46 06:26 BUN 42.0 H (9.0-27.0) mg/dL Creatinine 4.2 H (0.6-1.5) mg/dL Est GFR (CKD-EPI)AfAm 12.9 L (60.0-200.0) Est GFR (CKD-EPI)NonAf 11.1 L (60.0-200.0) BUN/Creatinine Ratio 10.00 L (12.00-20.00) Ratio C-Reactive Protein 19.6 H (0.0-0.8) mg/dL Microbiology - Last 24 Hours (Table) 10/22/20 07:11 Blood Culture - Preliminary Blood No Growth after 120 hours 10/21/20 06:25 Blood Culture - Final Blood No Growth after 144 hours 10/20/20 08:07 Blood Culture - Final Blood No Growth after 144 hours Assessment and Plan Assessment: Assessment: --Sepsis secondary to MSSA bacteremia , patient had persistent bacteremia secondary to permacath which was removed. -Hyponatremia- resolved -Leukocytosis secondary to sepsis- WBC count trending down -Hyperlipidemia -End-stage renal disease on hemodialysis currently -Hypertension -Anemia of chronic disease. DVT prophylaxis with heparin PLAN: Patient was having MSSA bacteremia, possible source being permacath that was removed. Patient also has peritoneal dialysis catheter, that was removed. Peritonial fluid analysis was negative for any infection. She was started on cefazolin for MSSA, later on switched to vancomycin by GLADYS Randhawa. Patient was also started on Diflucan. hand worker on board and possible NAHUM placement tomorrow. Further recommendations depending on the progress of the patient
[2020-10-29] MEDS: LEVOTHYROXINE 112 MCG TAB PO SCH (05:40)
[2020-10-29 07:58] VITALS: BP 143/73; PULSE 102; RESP 19; TEMP 98.9
--- NOTE | 2020-10-29 08:33 | P.OBCN ---
History of Present Illness Consult date: 10/29/20 Reason for consult: other (Labial swelling) Chief complaint: Labial swelling noted by family members History of present illness: This is a 55 year old woman who has been admitted since 10/17/2020 for fever of unknown origin and fatigue. She was found to have blood cultures positive for staph aureus. Permacath used for dialysis was suspected source and was removed. She's been undergoing peritoneal dialysis and is on IV vancomycin and oral Diflucan. Yesterday family members noticed some labial swelling. Gynecology was consulted. The patient is developmentally delayed however is able to answer some questions. She denies pain in the pelvic area. She denies pain with urination or bowel movements. The RN reports the patient is occasionally incontinent. There has been no noted vaginal or rectal bleeding noted. Review of Systems All systems: negative Past Medical History Past Medical History: Hyperlipidemia, Hypertension, Renal Disease, Thyroid Disorder Additional Past Medical History / Comment(s): developmentally delayed, ESRD with nightly peritoneal dialysis, anemia, mineral bone disease, reverse deep palate/ some speech issues, swelling legs and ankles, hx of fx rt leg, hypothyroid, degenerative joint disease. History of Any Multi-Drug Resistant Organisms: None Reported Past Surgical History: Ear Surgery, Joint Replacement Additional Past Surgical History / Comment(s): 09/25/20 total L knee arthroplasty, 09/30/20 permacath R chest, 01/13/20 peritoneal dialysis catheter, septoplasty, bilateral myringotomy/tubes, oral surgery, Past Anesthesia/Blood Transfusion Reactions: Family History of Problems w/ Anesthesia Additional Past Anesthesia/Blood Transfusion Reaction / Comm: mom-ponv Smoking Status: Never smoker - Past Family History Father Family Medical History: Cancer Additional Family Medical History / Comment(s): Father of esophageal cancer. Mother Family Medical History: Cancer, Hyperlipidemia, Hypertension, Osteoarthritis (OA) Additional Family Medical History / Comment(s): Tip of R index finger cancer/amputated. Medications and Allergies Home Medications Medication Instructions Recorded Confirmed Type Levothyroxine Sodium [Synthroid] 112 mcg PO DAILY 01/10/20 10/16/20 History Sevelamer Carbonate 800 mg PO BID-W/MEALS 01/10/20 10/16/20 History Simvastatin [Zocor] 20 mg PO HS 01/10/20 10/16/20 History Ferrous Sulfate [Iron (65 MG 325 mg PO DAILY 09/13/20 10/16/20 History Elemental)] Potassium Chloride [Klor-Con 10] 10 meq PO DAILY 09/13/20 10/16/20 History Darbepoetin Felipe [Aranesp] 40 mcg SQ Q7D syringe 10/01/20 10/16/20 Rx Furosemide [Lasix] 40 mg PO BID 10/16/20 10/16/20 History allopurinoL [Zyloprim] 100 mg PO DAILY 10/16/20 10/16/20 History amLODIPine [Norvasc] 5 mg PO DAILY 10/16/20 10/16/20 History Epoetin Felipe [Epogen] 20,000 unit IJ WE 10/17/20 10/17/20 History Allergies Allergy/AdvReac Type Severity Reaction Status Date / Time lisinopril Allergy Unknown Verified 10/16/20 20:48 Exam Vital Signs Temp Pulse Resp BP BP Pulse Ox 10/29/20 07:57 98.9 F 102 H 19 143/73 93 L 10/29/20 02:08 98.2 F 110 H 17 141/78 95 10/28/20 18:40 99 F 98 18 114/66 94 L 10/28/20 14:38 98.2 F 107 H 18 112/72 94 L Intake and Output 10/28/20 10/29/20 10/29/20 22:59 06:59 14:59 Other: Voiding Method Bedside Commode Bedside Commode Diaper Diaper # Voids 2 This is a comfortable appearing elderly female. Upon my initial evaluation with her she does have some blood around her mouth, specifically the lower lip, and her hands. Source appears to be the lower lip area. There is no specific injury or active bleeding noted. The abdomen is soft and non- distended with no rebound and no guarding. With nurse crew leader/control room operator the patient is examined. She has dependent minimal dependent edema of the bilateral labia minora. There is no redness in the entire vulvar or groin region. There is no bleeding noted. There is no groin lymphadenopathy noted. There is no suprapubic tenderness. Results Result Diagrams: 10/28/20 09:32 10/27/20 06:26 Abnormal Lab Results - Last 24 Hours (Table) 10/28/20 Range/Units 09:32 WBC 12.8 H (3.8-10.6) k/uL RBC 2.64 L (3.80-5.40) m/uL Hgb 8.0 L (11.4-16.0) gm/dL Hct 26.7 L (34.0-46.0) % MCV 101.0 H (80.0-100.0) fL MCHC 29.9 L (31.0-37.0) g/dL RDW 16.5 H (11.5-15.5) % Microbiology - Last 24 Hours (Table) 10/22/20 07:11 Blood Culture - Final Blood No Growth after 144 hours Assessment and Plan (1) Labial swelling Narrative/Plan: 55 year old woman admitted since 10/17/2020 with multiple medical problems including end-stage renal disease. She has benign dependent edema of the bi lateral labia which is mild in appearance. No evidence of active infection or pathology. This is likely secondary to positioning, generalized edema, and current medical situation. Supportive care only, no other treatment recommendations at this time. Please send state contact me if you have any further questions. Will sign off. Current Visit: Yes Status: Acute Code(s): N94.89 - OTH COND ASSOC W FEMALE GENITAL ORGANS AND MENSTRUAL CYCLE SNOMED Code(s): 719133323 (2) Fever of unknown origin Current Visit: Yes Status: Acute Code(s): R50.9 - FEVER, UNSPECIFIED SNOMED Code(s): 4728705 (3) ESRD on peritoneal dialysis Current Visit: Yes Status: Chronic Code(s): N18.6 - END STAGE RENAL DISEASE; Z99.2 - DEPENDENCE ON RENAL DIALYSIS SNOMED Code(s): 141903643 (4) End stage renal disease Current Visit: No Status: Acute Code(s): N18.6 - END STAGE RENAL DISEASE SNOMED Code(s): 32125289 (5) Status post total left knee replacement Current Visit: No Status: Acute Code(s): Z96.652 - PRESENCE OF LEFT ARTIFICIAL KNEE JOINT SNOMED Code(s): 1945353997184
[2020-10-29] MEDS: SEVELAMER 800 MG TAB PO SCH (08:39)
[2020-10-29] MEDS: FUROSEMIDE 40 MG TAB PO SCH (10:04)
[2020-10-29] MEDS: FLUCONAZOLE 100 MG TAB PO SCH (10:04)
[2020-10-29] MEDS: amLODIPine 2.5 MG TAB PO SCH (10:04)
[2020-10-29] MEDS: FERROUS SULFATE 325 MG TAB PO SCH (10:04)
[2020-10-29] MEDS: allopurinoL 100 MG TAB PO SCH (10:04)
--- NOTE | 2020-10-29 13:45 | US ---
EXAMINATION TYPE: US venous doppler duplex UE RT DATE OF EXAM: 10/29/2020 COMPARISON: NONE CLINICAL HISTORY: redness, swelling. Right arm swelling SIDE PERFORMED: Right Right lower IJV, medial and mid subclavian vein not visualized due to bandage cover area Right Arm: Visualized portions appear negative for DVT IMPRESSION: 1. Limited exam due to bandaging as discussed above. The visualized portions of the deep venous syste m appear to be patent with no diagnostic evidence of DVT as visualized.
--- NOTE | 2020-10-29 14:12 | P.DS ---
<Katherine oWod - Last Filed: 10/29/20 14:04> Providers Expected date of discharge: 10/29/20 Hospital Course: Final diagnosis -Sepsis secondary to MSSA bacteremia , patient had persistent bacteremia secondary to permacath which was removed. -Hyponatremia- resolved -Oral candidiasis -Labia minora swelling -Leukocytosis secondary to sepsis- WBC count trending down -Hyperlipidemia -End-stage renal disease on hemodialysis currently -Hypertension -Anemia of chronic disease. -DVT prophylaxis -Full code Discharge disposition Patient is being discharged in a stable condition with guarded prognosis to [facility]. Patient will follow-up with Dr. Frazier in the outpatient setting upon discharge. Patient will follow-up with her primary care provider Dr. Couch in the outpatient setting once discharged from [facility]. Patient is to continue with dialysis Thursday//Thursday schedule and will continue receiving vancomycin during dialysis per infectious disease recommendations for the next 2 weeks. Patient will also continue on Diflucan 100 mg daily for the next 6 days and then may discontinue. Total time taken is greater than 35 minutes. Hospital course This is a 55-year-old female who was recently admitted with generalized weakness and fever and was being closely monitored. Patient was found to have bacteremia from blood cultures that was showing staph aureus and MSSA bacteremia and was being closely followed by infectious disease. The source for the MSSA bacteremia was thought to be secondary to permacath infection which was discontinued and patient is now receiving hemodialysis and will continue on the Thursday//Thursday schedule. IV antibiotics transitioned to vancomycin and will continue per infectious disease recommendations for the next 2 weeks during dialysis. Recommend close outpatient labs to monitor kidney functions and Vanco levels as well. Patient was noted on exam to have some labia minora swelling and was evaluated by gynecology and recommending to continue with supportive treatment as the area does not appear to be infected and there is no drainage or bleeding noted of the site. May be possibly secondary to volume overload and current positioning and local generalized edema. Right arm also showing some edema and redness and a venous Doppler was done which was negative for DVT recommend continuing to elevate the extremity on pillows. Currently no reports of chest pain, shortness of breath, or palpitations. Patient is afe brile. No reports of nausea or vomiting and patient is tolerating diet. Patient will be going to [facility] today. On exam vital signs are stable. Cardio S1, S2 are muffled. Respiratory system shows diminished breath sounds at the bases with no wheezing or rhonchi noted. Abdomen is soft and nontender. Nervous system shows diffuse weakness. Please refer to medication reconciliation sheet for a list of medications. Patient Condition at Discharge: Fair Plan - Discharge Summary Discharge Rx Participant: No New Discharge Prescriptions: New Fluconazole [Diflucan] 100 mg PO DAILY 6 Days #6 tab amLODIPine [Norvasc] 2.5 mg PO DAILY tab Atorvastatin [Lipitor] 10 mg PO HS tab Acetaminophen Tab [Tylenol] 650 mg PO Q6HR PRN tab PRN Reason: Mild Pain Or Fever > 100.5 Continue Levothyroxine Sodium [Synthroid] 112 mcg PO DAILY Sevelamer Carbonate 800 mg PO BID-W/MEALS Furosemide [Lasix] 40 mg PO BID Epoetin Felipe [Epogen] 20,000 unit IJ WE Darbepoetin Felipe [Aranesp] 40 mcg SQ Q7D #0 syringe Ferrous Sulfate [Iron (65 MG Elemental)] 325 mg PO DAILY Potassium Chloride [Klor-Con 10] 10 meq PO DAILY allopurinoL [Zyloprim] 100 mg PO DAILY Discontinued Simvastatin [Zocor] 20 mg PO HS amLODIPine [Norvasc] 5 mg PO DAILY Discharge Medication List Levothyroxine Sodium [Synthroid] 112 mcg PO DAILY 01/10/20 [History] Sevelamer Carbonate 800 mg PO BID-W/MEALS 01/10/20 [History] Ferrous Sulfate [Iron (65 MG Elemental)] 325 mg PO DAILY 09/13/20 [History] Potassium Chloride [Klor-Con 10] 10 meq PO DAILY 09/13/20 [History] Furosemide [Lasix] 40 mg PO BID 10/16/20 [History] allopurinoL [Zyloprim] 100 mg PO DAILY 10/16/20 [History] Epoetin Felipe [Epogen] 20,000 unit IJ WE 10/17/20 [History] Acetaminophen Tab [Tylenol] 650 mg PO Q6HR PRN tab 10/29/20 [Rx] Atorvastatin [Lipitor] 10 mg PO HS tab 10/29/20 [Rx] Darbepoetin Felipe [Aranesp] 40 mcg SQ Q7D #0 syringe 10/29/20 [Rx] Fluconazole [Diflucan] 100 mg PO DAILY 6 Days #6 tab 10/29/20 [Rx] amLODIPine [Norvasc] 2.5 mg PO DAILY tab 10/29/20 [Rx] Follow up Appointment(s)/Referral(s): [facility] MICHAELBillydavid [NON-STAFF] - 10/30/20 12:25 pm (Hemodialysis will be on Tuesdays, , and Saturdays. ) Jose Couch MD [Primary Care Provider] - 11/05/20 2:30 pm () Activity/Diet/Wound Care/Special Instructions: Retail [employer] faxed an Rx for Vancomycin pharmacy to dose for 2 weeks to be given with hemodialysis. Patient is going to [facility] as tolerated Continue with hemodialysis Thursday//Thursday and continue to receive vancomycin during per infectious disease recommendations Continue with Diflucan daily for the next 6 days and then may discontinue Continue renal diet, low potassium, low phosphorus, low sodium Continue with ensures twice a day with meals, chocolate Discharge Disposition: TRANSFER TO SNF/ECF <Kirsten Swartz - Last Filed: 10/29/20 15:16> Providers Date of admission: 10/16/20 23:21 Attending physician: Sidney Eagle Consults: 10/16/20 23:20 Consult Physician Routine Consulting Provider: Bernarda Castellanos Consult Reason/Comments: Fever. Peritoneal dialysis patient Do you want consulting provider notified?: Yes 10/17/20 00:08 Consult Physician Routine Consulting Provider: Vega Sewell Consult Reason/Comments: Postsurgical patient. fever Do you want consulting provider notified?: Yes 10/17/20 13:46 Consult Physician Routine Consulting Provider: Ernst Randhawa Consult Reason/Comments: Bacteremia with possible Staphylococcus Do you want consulting provider notified?: Yes 10/18/20 11:25 Consult Physician Urgent Consulting Provider: Manjeet Navarro Consult Reason/Comments: ij cath removal possible infection Do you want consulting provider notified?: Yes 10/28/20 10:41 Consult Physician Routine Consulting Provider: Piedad Rodriguez Consult Reason/Comments: Labia edema- routine consult Do you want consulting provider notified?: Yes Primary care physician: Jose Cocuh [facility] Course: I spoke with her sister at bed side and all her questions were answered to her satisfaction. Kirsten Swartz
--- NOTE | 2020-10-29 16:40 | PN ---
PROGRESS NOTE Patient is seen for followup for end-stage renal disease. She will be going back to rehab and will continue with temporary hemodialysis. The patient will be going to [facility] and will therefore be going to the [facility]. On examination today, she is comfortable, denies any significant complaints. The patient wants to know if she is getting discharged. PHYSICAL EXAMINATION: Blood pressure this morning 143/73, heart rate 102 per minute. She is afebrile. Examination of the heart S1, S2. Examination of the lungs, bilateral breath sounds are heard. Abdomen is soft, obese, nontender. Examination of lower extremities shows no significant edema. LABS: Show sodium 137, potassium 4.5 on 10/27/2020. ASSESSMENT: 1. End-stage renal disease, on peritoneal dialysis. The patient will be doing temporary hemodialysis again while she goes to rehab. 2. Methicillin resistant Staphylococcus aureus bacteremia related to PermCath, status post removal with new catheter being placed on October 24. 3. Anemia of chronic disease. 4. Developmental delay. 5. Chronic kidney disease, mineral bone disorder. PLAN: Hemodialysis temporarily. We will have family flush her PD catheter while at the unit. MMODL / IJN: [id number] /
== END 2020-10-29 14:43 | DRG 314 ==
LOC: EC 19:43 → 4SSUR 23:21
PROVIDERS: ADMIT Hospitalist; ATTEND Hospitalist
PROC: 02HV33Z Insertion of Infusion Device into Superior Vena Cava, Percutaneous Approach (ICD-10-PCS; principal; 2020-10-23 11:45)
PROC: 5A1D70Z Performance of Urinary Filtration, Intermittent, Less than 6 Hours Per Day (ICD-10-PCS; 2020-10-23 11:45)
DX: T80.211A Bloodstream infection due to central venous catheter, initial encounter (principal); A41.01 Sepsis due to Methicillin susceptible Staphylococcus aureus; N18.6 End stage renal disease; B37.0 Candidal stomatitis; E87.1 Hypo-osmolality and hyponatremia; I12.0 Hypertensive chronic kidney disease with stage 5 chronic kidney disease or end stage renal disease; L03.113 Cellulitis of right upper limb; N17.9 Acute kidney failure, unspecified; D63.1 Anemia in chronic kidney disease; E03.9 Hypothyroidism, unspecified; E78.5 Hyperlipidemia, unspecified; E87.6 Hypokalemia; E83.9 Disorder of mineral metabolism, unspecified; Y84.8 Other medical procedures as the cause of abnormal reaction of the patient, or of later complication, without mention of misadventure at the time of the procedure; Z79.890 Hormone replacement therapy; Z79.899 Other long term (current) drug therapy; N76.89 Other specified inflammation of vagina and vulva; M19.90 Unspecified osteoarthritis, unspecified site; Z20.822 Contact with and (suspected) exposure to COVID-19; Z80.0 Family history of malignant neoplasm of digestive organs; Z82.61 Family history of arthritis; Z80.8 Family history of malignant neoplasm of other organs or systems; Z82.49 Family history of ischemic heart disease and other diseases of the circulatory system; Z96.652 Presence of left artificial knee joint; Z99.2 Dependence on renal dialysis; Z88.8 Allergy status to other drugs, medicaments and biological substances; Z98.890 Other specified postprocedural states
CPT/HCPCS: 36415; 36558; 71045; 71046; 74176; 76937; 77001; 80048; 80053; 80074; 80202; 81001; 83540; 83550; 83605; 85025; 85027; 85610; 85652; 85730; 86140; 87040; 87070; 87077; 87086; 87186; 87205; 87635; 89050; 90935; 93005

== ENCOUNTER 2020-10-31 21:51 | Emergency (ER) | payer MEDICARE, OTHER ==
[2020-10-31] MEDS ORDERED: SODIUM CHLORIDE 0.9% 1,000 ML IV STA (22:31)
--- NOTE | 2020-10-31 22:57 | ED ---
Recheck HPI - General Chief Complaint: Recheck/Abnormal Lab/Rx Stated Complaint: Abnormal Labs Time Seen by Provider: 10/31/20 21:52 Source: EMS Mode of arrival: EMS Limitations: no limitations - Related Data Home Medications Medication Instructions Recorded Confirmed Levothyroxine Sodium [Synthroid] 112 mcg PO DAILY@0600 01/10/20 10/31/20 Sevelamer Carbonate 800 mg PO BID@0800,1700 01/10/20 10/31/20 Ferrous Sulfate [Iron (65 MG 325 mg PO DAILY@1700 09/13/20 10/31/20 Elemental)] Potassium Chloride [Klor-Con 10] 10 meq PO DAILY@1700 09/13/20 10/31/20 Furosemide [Lasix] 40 mg PO BID@0800,1700 10/16/20 10/31/20 allopurinoL [Zyloprim] 100 mg PO DAILY@0800 10/16/20 10/31/20 Epoetin Felipe [Epogen] 20,000 unit SQ WE@0800 10/17/20 10/31/20 Atorvastatin [Lipitor] 10 mg PO HS@2100 10/31/20 10/31/20 Fluconazole [Diflucan] 100 mg PO DAILY@1700 PRN 10/31/20 10/31/20 Lactose-Reduced Food [Ensure Plus] 1 can PO TID@0800,1200,1700 10/31/20 10/31/20 Magnesium Hydroxide [Milk of 7,200 mg PO DAILY PRN 10/31/20 10/31/20 Magnesia Concentrate] Na Phos,M-B/Na Phos,Di-Ba [Fleet 133 ml RECTAL DAILY PRN 10/31/20 10/31/20 Adult] Vancomycin Hcl Solution 1 dose IV TUTHSA 10/31/20 10/31/20 amLODIPine [Norvasc] 2.5 mg PO DAILY@0800 10/31/20 10/31/20 bisacodyL [Dulcolax] 10 mg RECTAL DAILY PRN 10/31/20 10/31/20 Previous Rx's Medication Instructions Recorded Acetaminophen Tab [Tylenol] 650 mg PO Q6HR PRN tab 10/29/20 Darbepoetin Felipe [Aranesp] 40 mcg SQ Q7D #0 syringe 10/29/20 Allergies Allergy/AdvReac Type Severity Reaction Status Date / Time lisinopril Allergy Unknown Verified 10/31/20 22:06 Review of Systems ROS Statement: Those systems with pertinent positive or pertinent negative responses have been documented in the HPI. ROS Other: All systems not noted in ROS Statement are negative. Past Medical History Past Medical History: Hyperlipidemia, Hypertension, Renal Disease, Thyroid Disorder Additional Past Medical History / Comment(s): developmentally delayed, ESRD with nightly peritoneal dialysis, anemia, mineral bone disease, reverse deep palate/ some speech issues, swelling legs and ankles, hx of fx rt leg, hypothyroid, degenerative joint disease. History of Any Multi-Drug Resistant Organisms: None Reported Past Surgical History: Ear Surgery, Joint Replacement Additional Past Surgical History / Comment(s): 09/25/20 total L knee arthroplasty, 09/30/20 permacath R chest, 01/13/20 peritoneal dialysis catheter, septoplasty, bilateral myringotomy/tubes, oral surgery, Past Anesthesia/Blood Transfusion Reactions: Family History of Problems w/ Anesthesia Additional Past Anesthesia/Blood Transfusion Reaction / Comment(s): mom-ponv Past Psychological History: No Psychological Hx Reported Smoking Status: Never smoker - Past Family History Father Family Medical History: Cancer Additional Family Medical History / Comment(s): Father of esophageal cancer. Mother Family Medical History: Cancer, Hyperlipidemia, Hypertension, Osteoarthritis (OA) Additional Family Medical History / Comment(s): Tip of R index finger cancer/amputated. General Exam Limitations: no limitations Course Vital Signs 10/31/20 10/31/20 21:55 23:00 Temperature 99.1 F 98.2 F Pulse Rate 104 H 94 Respiratory 16 18 Rate Blood Pressure 122/71 131/67 O2 Sat by Pulse 94 L 96 Oximetry Medical Decision Making - Lab Data Result diagrams: 10/31/20 22:52 10/31/20 22:52 Lab Results 10/31/20 10/31/20 10/31/20 Range/Units 22:52 22:52 22:52 WBC 7.7 (3.8-10.6) k/uL RBC 2.55 L (3.80-5.40) m/uL Hgb 7.7 L (11.4-16.0) gm/dL Hct 25.5 L (34.0-46.0) % MCV 100.3 H (80.0-100.0) fL MCH 30.2 (25.0-35.0) pg MCHC 30.1 L (31.0-37.0) g/dL RDW 16.7 H (11.5-15.5) % Plt Count 353 (150-450) k/uL MPV 8.2 Neutrophils % 77 % Lymphocytes % 13 % Monocytes % 6 % Eosinophils % 2 % Basophils % 1 % Neutrophils # 5.9 (1.3-7.7) k/uL Lymphocytes # 1.0 (1.0-4.8) k/uL Monocytes # 0.4 (0-1.0) k/uL Eosinophils # 0.2 (0-0.7) k/uL Basophils # 0.0 (0-0.2) k/uL Hypochromasia Moderate Anisocytosis Slight Macrocytosis Slight PT 10.7 (9.0-12.0) sec INR 1.0 (<1.2) Sodium 135 L (137-145) mmol/L Potassium 4.5 (3.5-5.1) mmol/L Chloride 95 L (98-107) mmol/L Carbon Dioxide 30 (22-30) mmol/L Anion Gap 10 mmol/L BUN 47 H (7-17) mg/dL Creatinine 5.53 H (0.52-1.04) mg/dL Est GFR (CKD-EPI)AfAm 9 (>60 ml/min/1.73 sqM) Est GFR (CKD-EPI)NonAf 8 (>60 ml/min/1.73 sqM) Glucose 97 (74-99) mg/dL Calcium 9.0 (8.4-10.2) mg/dL Phosphorus 6.5 H (2.5-4.5) mg/dL Magnesium 2.5 H (1.6-2.3) mg/dL Total Bilirubin 0.2 (0.2-1.3) mg/dL AST 26 (14-36) U/L ALT 6 (4-34) U/L Alkaline Phosphatase 119 (38-126) U/L Creatine Kinase 26 L (30-135) U/L Total Protein 6.7 (6.3-8.2) g/dL Albumin 2.7 L (3.5-5.0) g/dL Blood Type Recheck Bld Type Recheck Status Spec Expiration Date 10/31/20 Range/Units 22:52 WBC (3.8-10.6) k/uL RBC (3.80-5.40) m/uL Hgb (11.4-16.0) gm/dL Hct (34.0-46.0) % MCV (80.0-100.0) fL MCH (25.0-35.0) pg MCHC (31.0-37.0) g/dL RDW (11.5-15.5) % Plt Count (150-450) k/uL MPV Neutrophils % % Lymphocytes % % Monocytes % % Eosinophils % % Basophils % % Neutrophils # (1.3-7.7) k/uL Lymphocytes # (1.0-4.8) k/uL Monocytes # (0-1.0) k/uL Eosinophils # (0-0.7) k/uL Basophils # (0-0.2) k/uL Hypochromasia Anisocytosis Macrocytosis PT (9.0-12.0) sec INR (<1.2) Sodium (137-145) mmol/L Potassium (3.5-5.1) mmol/L Chloride (98-107) mmol/L Carbon Dioxide (22-30) mmol/L Anion Gap mmol/L BUN (7-17) mg/dL Creatinine (0.52-1.04) mg/dL Est GFR (CKD-EPI)AfAm (>60 ml/min/1.73 sqM) Est GFR (CKD-EPI)NonAf (>60 ml/min/1.73 sqM) Glucose (74-99) mg/dL Calcium (8.4-10.2) mg/dL Phosphorus (2.5-4.5) mg/dL Magnesium (1.6-2.3) mg/dL Total Bilirubin (0.2-1.3) mg/dL AST (14-36) U/L ALT (4-34) U/L Alkaline Phosphatase (38-126) U/L Creatine Kinase (30-135) U/L Total Protein (6.3-8.2) g/dL Albumin (3.5-5.0) g/dL Blood Type Recheck No Previous Record Bld Type Recheck Status CABO Indicated Spec Expiration Date 11/03/2020 - 2351 Disposition Clinical Impression: Anemia Disposition: HOME SELF-CARE Condition: Good Instructions (If sedation given, give patient instructions): Anemia (ED) Is patient prescribed a controlled substance at d/c from ED?: No Referrals: Jerry Mclaughlin DO [Primary Care Provider] - 1-2 days
[2020-10-31 23:15] LABS: Anisocytosis Slight; Basophils % (A) 1 %; Eosinophils # (A) 0.2 k/uL (0-0.7); Eosinophils % (A) 2 %; HCT 25.5 % (34.0-46.0); HGB 7.7 gm/dL (11.4-16.0); Hypochromasia Moderate; Lymphocytes % (A) 13 %; MCH 30.2 pg (25.0-35.0); MCHC 30.1 g/dL (31.0-37.0); MCV 100.3 fL (80.0-100.0); Macrocytosis Slight; Mean Platelet Volume 8.2; Monocytes # (A) 0.4 k/uL (0-1.0); Monocytes % (A) 6 %; Neutrophils # (A) 5.9 k/uL (1.3-7.7); Neutrophils % (A) 77 %; Platelet Count 353 k/uL (150-450); RBC 2.55 m/uL (3.80-5.40); RDW 16.7 % (11.5-15.5); WBC 7.7 k/uL (3.8-10.6)
[2020-10-31 23:20] VITALS: RESP 18
[2020-10-31 23:24] LABS: Prothrombin Time 10.7 sec (9.0-12.0)
[2020-10-31 23:27] LABS: Albumin 2.7 g/dL (3.5-5.0); Magnesium 2.5 mg/dL (1.6-2.3); Phosphorus 6.5 mg/dL (2.5-4.5); Potassium 4.5 mmol/L (3.5-5.1); Total Bilirubin 0.2 mg/dL (0.2-1.3); Total Protein 6.7 g/dL (6.3-8.2)
[2020-11-01] MEDS ORDERED: NITROFURANTOIN MONOHYD/M-CRYST 100 MG CAP PO STA (00:32)
[2020-11-01 01:13] VITALS: BP 121/66; PULSE 90; TEMP 98.9
== END 2020-11-01 01:12 | disposition home or self-care (01) ==
LOC: EC 21:51
DX: I12.0 Hypertensive chronic kidney disease with stage 5 chronic kidney disease or end stage renal disease (principal); N18.6 End stage renal disease; D63.1 Anemia in chronic kidney disease; E78.5 Hyperlipidemia, unspecified; E03.9 Hypothyroidism, unspecified; Z79.890 Hormone replacement therapy; Z99.2 Dependence on renal dialysis
CPT/HCPCS: 36415; 86900; 86901; 80053; 82550; 83735; 84100; 85025; 85610; 86850; 81001; 87086; 99284; 96365; 96361 ×2; J0696

== ENCOUNTER 2021-01-11 14:34 | Inpatient (IN) | payer MEDICARE, OTHER ==
--- NOTE | 2021-01-11 15:14 | ED ---
General Adult HPI - General Chief complaint: Recheck/Abnormal Lab/Rx Stated complaint: Weakness Time Seen by Provider: 01/11/21 15:13 Source: family Mode of arrival: wheelchair Limitations: no limitations - History of Present Illness Initial comments: Isis a 55-year-old female with history of cognitive delay, end-stage renal disease on peritoneal dialysis. The patient had a left knee replacement in September of this year and has had subsequently been admitted for sepsis. Over the past week patient's family members noted that her left knee is again red and swollen it appears to be painful. Over the past day or so she's been more weak and fatigued than usual. Her blood pressure is low, this is concerning for her family that she may have an infection again. - Related Data Home Medications Medication Instructions Recorded Confirmed Levothyroxine Sodium [Synthroid] 112 mcg PO DAILY@0600 01/10/20 01/11/21 Ferrous Sulfate [Iron (65 MG 325 mg PO DAILY 09/13/20 01/11/21 Elemental)] Potassium Chloride [Klor-Con 10 ER] 10 meq PO DAILY 09/13/20 01/11/21 allopurinoL [Zyloprim] 100 mg PO DAILY@0800 10/16/20 01/11/21 Atorvastatin [Lipitor] 10 mg PO HS@2100 10/31/20 01/11/21 Furosemide [Lasix] 80 mg PO BID 01/11/21 01/11/21 Sevelamer [Renvela] 1,600 mg PO TID-W/MEALS 01/11/21 01/11/21 Allergies Allergy/AdvReac Type Severity Reaction Status Date / Time lisinopril Allergy Unknown Verified 01/11/21 16:36 Review of Systems ROS Statement: Those systems with pertinent positive or pertinent negative responses have been documented in the HPI. ROS Other: All systems not noted in ROS Statement are negative. Past Medical History Past Medical History: Hyperlipidemia, Hypertension, Renal Disease, Thyroid Disorder Additional Past Medical History / Comment(s): developmentally delayed, ESRD with nightly peritoneal dialysis, anemia, mineral bone disease, reverse deep palate/ some speech issues, swelling legs and ankles, hx of fx rt leg, hypothyroid, degenerative joint disease. History of Any Multi-Drug Resistant Organisms: None Reported Past Surgical History: Ear Surgery, Joint Replacement Additional Past Surgical History / Comment(s): 09/25/20 total L knee arthroplasty, 09/30/20 permacath R chest, 01/13/20 peritoneal dialysis catheter, septoplasty, bilateral myringotomy/tubes, oral surgery, Past Anesthesia/Blood Transfusion Reactions: Family History of Problems w/ Anesthesia Additional Past Anesthesia/Blood Transfusion Reaction / Comment(s): mom-ponv Past Psychological History: No Psychological Hx Reported Smoking Status: Never smoker - Past Family History Father Family Medical History: Cancer Additional Family Medical History / Comment(s): Father of esophageal cancer. Mother Family Medical History: Cancer, Hyperlipidemia, Hypertension, Osteoarthritis (OA) Additional Family Medical History / Comment(s): Tip of R index finger cancer/amputated. General Exam - General Exam Comments Initial Comments: Physical Exam GENERAL: chronically ill appearing HENT: Normocephalic, Atraumatic. EYES: PERRL, EOMI PULMONARY: Unlabored respirations. No audible rales rhonchi or wheezing was noted. CARDIOVASCULAR: RRR ABDOMEN: peritoneal dialysis SKIN: Pale Incision over left knee, erythematous, pain with ROM of knee : Deferred NEUROLOGIC: Alert MUSCULOSKELETAL: Pain with ROM of left knee PSYCHIATRIC: Unable to assess Limitations: no limitations Course Vital Signs 01/11/21 01/11/21 01/11/21 14:39 15:21 17:55 Temperature 98.4 F Pulse Rate 109 H 89 110 H Respiratory 16 16 Rate Blood Pressure 76/53 107/69 O2 Sat by Pulse 96 97 Oximetry 01/11/21 18:12 Temperature Pulse Rate 108 H Respiratory Rate Blood Pressure O2 Sat by Pulse Oximetry Medical Decision Making - Medical Decision Making patient was seen and evaluated, history was obtained from family at bedside as well as review of medical record Physical exam reveals a red swollen painful left knee, patient is hypotensive there is no fever there's no tachycardia Septic workup was initiated, review of previous microbiology reveals patient's blood has previously grown MSSA that was gamble sensitive, a dose of Rocephin was ordered Patient's blood pressure improving with IV fluids, labs were reviewed patient has chronic kidney disease, hyperkalemia Hyperkalemia was treated with protocol Patient care was discussed with Jean Marie for [facility] hospitalist group who accepts the admission with consult to orthopedics, patient care was discussed with Brandon DRUMMOND from Dr. Foster's orthopedic group who is aware of the consult and will evaluate the patient tomorrow - Lab Data Result diagrams: 01/11/21 16:07 01/11/21 16:07 Lab Results 01/11/21 01/11/21 01/11/21 Range/Units 16:07 16:07 16:07 WBC 10.6 (3.8-10.6) k/uL RBC 4.07 (3.80-5.40) m/uL Hgb 12.1 (11.4-16.0) gm/dL Hct 39.6 (34.0-46.0) % MCV 97.3 D (80.0-100.0) fL MCH 29.8 (25.0-35.0) pg MCHC 30.6 L (31.0-37.0) g/dL RDW 17.7 H (11.5-15.5) % Plt Count 563 H (150-450) k/uL MPV 7.3 Neutrophils % 83 % Lymphocytes % 9 % Monocytes % 5 % Eosinophils % 1 % Basophils % 0 % Neutrophils # 8.8 H (1.3-7.7) k/uL Lymphocytes # 1.0 (1.0-4.8) k/uL Monocytes # 0.5 (0-1.0) k/uL Eosinophils # 0.1 (0-0.7) k/uL Basophils # 0.0 (0-0.2) k/uL Hypochromasia Moderate Anisocytosis Slight Macrocytosis Slight PT 10.3 (9.0-12.0) sec INR 1.0 (<1.2) APTT 23.5 (22.0-30.0) sec Sodium 134 L (137-145) mmol/L Potassium 6.0 H (3.5-5.1) mmol/L Chloride 99 (98-107) mmol/L Carbon Dioxide 23 (22-30) mmol/L Anion Gap 12 mmol/L BUN 44 H (7-17) mg/dL Creatinine 7.97 H* (0.52-1.04) mg/dL Est GFR (CKD-EPI)AfAm 6 (>60 ml/min/1.73 sqM) Est GFR (CKD-EPI)NonAf 5 (>60 ml/min/1.73 sqM) Glucose 107 H (74-99) mg/dL Plasma Lactic Acid David (0.7-2.0) mmol/L Calcium 10.0 (8.4-10.2) mg/dL Total Bilirubin 1.0 (0.2-1.3) mg/dL AST 51 H (14-36) U/L ALT 17 (4-34) U/L Alkaline Phosphatase 81 (38-126) U/L C-Reactive Protein (<1.0) mg/dL Total Protein 7.9 (6.3-8.2) g/dL Albumin 3.6 (3.5-5.0) g/dL 01/11/21 01/11/21 Range/Units 16:07 16:07 WBC (3.8-10.6) k/uL RBC (3.80-5.40) m/uL Hgb (11.4-16.0) gm/dL Hct (34.0-46.0) % MCV (80.0-100.0) fL MCH (25.0-35.0) pg MCHC (31.0-37.0) g/dL RDW (11.5-15.5) % Plt Count (150-450) k/uL MPV Neutrophils % % Lymphocytes % % Monocytes % % Eosinophils % % Basophils % % Neutrophils # (1.3-7.7) k/uL Lymphocytes # (1.0-4.8) k/uL Monocytes # (0-1.0) k/uL Eosinophils # (0-0.7) k/uL Basophils # (0-0.2) k/uL Hypochromasia Anisocytosis Macrocytosis PT (9.0-12.0) sec INR (<1.2) APTT (22.0-30.0) sec Sodium (137-145) mmol/L Potassium (3.5-5.1) mmol/L Chloride (98-107) mmol/L Carbon Dioxide (22-30) mmol/L Anion Gap mmol/L BUN (7-17) mg/dL Creatinine (0.52-1.04) mg/dL Est GFR (CKD-EPI)AfAm (>60 ml/min/1.73 sqM) Est GFR (CKD-EPI)NonAf (>60 ml/min/1.73 sqM) Glucose (74-99) mg/dL Plasma Lactic Acid David 1.6 (0.7-2.0) mmol/L Calcium (8.4-10.2) mg/dL Total Bilirubin (0.2-1.3) mg/dL AST (14-36) U/L ALT (4-34) U/L Alkaline Phosphatase (38-126) U/L C-Reactive Protein 4.1 H (<1.0) mg/dL Total Protein (6.3-8.2) g/dL Albumin (3.5-5.0) g/dL Disposition Clinical Impression: ESRD (end stage renal disease), Status post total left knee replacement, ESRD on peritoneal dialysis, Hyperkalemia Disposition: ADMITTED IP TO THIS [facility] Condition: Serious Is patient prescribed a controlled substance at d/c from ED?: No Referrals: Jose Couch MD [Primary Care Provider] - 1-2 days
[2021-01-11] MEDS ORDERED: SODIUM CHLORIDE 0.9% 500 ML 500 ML IV ONE (15:15)
[2021-01-11 16:27] LABS: Anisocytosis Slight; Basophils % (A) 0 %; Eosinophils # (A) 0.1 k/uL (0-0.7); Eosinophils % (A) 1 %; HCT 39.6 % (34.0-46.0); HGB 12.1 gm/dL (11.4-16.0); Hypochromasia Moderate; Lymphocytes % (A) 9 %; MCH 29.8 pg (25.0-35.0); MCHC 30.6 g/dL (31.0-37.0); MCV 97.3 fL (80.0-100.0); Macrocytosis Slight; Mean Platelet Volume 7.3; Monocytes # (A) 0.5 k/uL (0-1.0); Monocytes % (A) 5 %; Neutrophils # (A) 8.8 k/uL (1.3-7.7); Neutrophils % (A) 83 %; Platelet Count 563 k/uL (150-450); RBC 4.07 m/uL (3.80-5.40); RDW 17.7 % (11.5-15.5); WBC 10.6 k/uL (3.8-10.6)
[2021-01-11 16:28] LABS: Albumin 3.6 g/dL (3.5-5.0); Total Protein 7.9 g/dL (6.3-8.2)
[2021-01-11] MEDS ORDERED: cefTRIAXone IN SWFI 1,000 MG/10 ML SYRINGE IVP STA (16:34)
[2021-01-11 16:39] LABS: Partial Thromboplastin Time 23.5 sec (22.0-30.0); Prothrombin Time 10.3 sec (9.0-12.0)
[2021-01-11] MEDS ORDERED: NALOXONE 0.4 MG/ML 1 ML VIAL IV PRN (17:02)
[2021-01-11] MEDS ORDERED: DEXTROSE 50% SYRINGE 50 ML IVP ONE (17:03)
[2021-01-11] MEDS ORDERED: INSULIN REGULAR 100 UNIT/ML VIAL (IV) IV ONE (17:03)
[2021-01-11] MEDS ORDERED: CALCIUM GLUCONATE 1 GM in SODIUM CHLORIDE 0.9% 100 ML IVPB ONE (17:03)
[2021-01-11] MEDS ORDERED: ALBUTEROL NEB (CONC) 2.5 MG/0.5 ML INHALATION ONE (17:03)
--- NOTE | 2021-01-11 17:45 | XR ---
EXAMINATION TYPE: XR knee limited LT DATE OF EXAM: 01/11/2021 COMPARISON: 01/02/2021 HISTORY: Pain and swelling TECHNIQUE: 2 views FINDINGS: I see no fracture nor dislocation. There is a knee prosthesis. There is soft tissue swellin g anterior to the patella. IMPRESSION: Soft tissue swelling. No fracture. Swelling increased compared to old exam.
--- NOTE | 2021-01-12 08:43 | P.NPCON ---
History of Present Illness - Reason for Consult end stage renal disease - History of Present Illness Reason for consultation: End-stage renal disease History of present illness: Patient is a 55-year-old female seen in renal consultation for end-stage renal disease. She is maintained on peritoneal dialysis. Patient is not a reliable historian. Her caregiver is her mother. There have been no issues with peritoneal dialysis 6 changes. Patient had left knee replacement done in September 2020 and was subsequently treated for infection. According to her mother she noticed left knee was getting more swollen and erythematous and brought her into the hospital for evaluation. Patient has been more fatigued and weaker than usual. Currently she is awake and her mentation appears to be at baseline. She is afebrile. Blood pressure stable. She did receive a dose of Rocephin in the ER. A potassium level .0 however it was a hemolyzed specimen. She did receive IV calcium as well as IV insulin as well as nebulized albuterol for hypercalcemia treatment. Morning labs are pending. She denies chest pain or shortness of breath. Vital signs are stable. General: The patient appeared well nourished and normally developed. HEENT: Head exam is unremarkable. Neck is without jugular venous distension. LUNGS: Breath sounds decreased. HEART: Rate and Rhythm are regular. ABDOMEN: Soft, no distention. EXTREMITITES: No edema. Left knee erythema noted. No drainage. Past Medical History Past Medical History: Hyperlipidemia, Hypertension, Renal Disease, Thyroid Di sorder Additional Past Medical History / Comment(s): developmentally delayed, ESRD with nightly peritoneal dialysis, anemia, mineral bone disease, reverse deep palate/ some speech issues, swelling legs and ankles, hx of fx rt leg, hypothyroid, degenerative joint disease. History of Any Multi-Drug Resistant Organisms: None Reported Past Surgical History: Ear Surgery, Joint Replacement Additional Past Surgical History / Comment(s): 09/25/20 total L knee arthroplasty, 09/30/20 permacath R chest, 01/13/20 peritoneal dialysis catheter, septoplasty, bilateral myringotomy/tubes, oral surgery, Past Anesthesia/Blood Transfusion Reactions: Family History of Problems w/ Anesthesia Additional Past Anesthesia/Blood Transfusion Reaction / Comment(s): mom-ponv Past Psychological History: No Psychological Hx Reported Additional Psychological History / Comment(s): Mother reports Isis as having high function disabilty with limited understanding of presented information - momYamel is legal guardian. Pt recently had total L knee replacement and went to [facility] for rehab, mother states she does not want pt going to that facility again, pt left there nonambulatory. Smoking Status: Never smoker Past Alcohol Use History: None Reported Past Drug Use History: None Reported - Past Family History Father Family Medical History: Cancer Additional Family Medical History / Comment(s): Father of esophageal cancer. Mother Family Medical History: Cancer, Hyperlipidemia, Hypertension, Osteoarthritis (O A) Additional Family Medical History / Comment(s): Tip of R index finger ca ncer/amputated. Medications and Allergies Home Medications Medication Instructions Recorded Confirmed Type Levothyroxine Sodium [Synthroid] 112 mcg PO DAILY@0600 01/10/20 01/11/21 History Ferrous Sulfate [Iron (65 MG 325 mg PO DAILY 09/13/20 01/11/21 History Elemental)] Potassium Chloride [Klor-Con 10 ER] 10 meq PO DAILY 09/13/20 01/11/21 History allopurinoL [Zyloprim] 100 mg PO DAILY@0800 10/16/20 01/11/21 History Atorvastatin [Lipitor] 10 mg PO HS@2100 10/31/20 01/11/21 History Furosemide [Lasix] 80 mg PO BID 01/11/21 01/11/21 History Sevelamer [Renvela] 1,600 mg PO TID-W/MEALS 01/11/21 01/11/21 History Allergies Allergy/AdvReac Type Severity Reaction Status Date / Time lisinopril Allergy Unknown Verified 01/11/21 16:36 Physical Exam Vitals: Vital Signs Temp Pulse Pulse Resp BP BP Pulse Ox 01/12/21 04:00 98 16 106/72 98 01/12/21 00:24 102 H 16 01/11/21 20:00 98.2 F 102 H 16 109/74 98 01/11/21 18:12 108 H 01/11/21 18:00 100 16 104/70 97 01/11/21 17:55 110 H 01/11/21 17:00 93 95 01/11/21 16:00 92 96 01/11/21 15:21 89 16 107/69 97 01/11/21 14:39 98.4 F 109 H 16 76/53 96 Intake and Output 01/11/21 01/12/21 01/12/21 22:59 06:59 14:59 Other: Voiding Method Bedpan Bedpan External Catheter External Catheter # Voids 0 1 # Bowel Movements 0 Weight 83.007 kg 79.5 kg Results - Lab Results Most recent lab results Calcium 10.0 mg/dL (8.4-10.2) 01/11/21 16:07 01/11/21 16:07 01/11/21 16:07 Assessment and Plan Plan: Assessment: 1. End-stage renal disease maintained on peritoneal dialysis. 2. Left knee infection. Orthopedic surgery consulted. 3. Left knee replacement done in September 2020. 4. Hyperkalemia. This was a hemolyzed specimen. Repeat labs today. 5. Chronic kidney disease mineral bone disease maintained on Renvela. Plan: Start peritoneal dialysis exchanges - 2 L every 6 hours with 1.5% dextrose solution. Check BMP today. Follow-up cultures. Home meds to be resumed. Thank you for the consultation. I will continue to follow the patient with you during her hospital stay.
[2021-01-12 09:44] LABS: Calcium 10.1 mg/dL (8.4-10.2); Magnesium 3.2 mg/dL (1.6-2.3); Potassium 4.1 mmol/L (3.5-5.1)
--- NOTE | 2021-01-12 11:21 | P.CNOR ---
History of Present Illness - [facility] Consult date: 01/12/21 Requesting physician: Katherine Russo Consult reason: other (post op infection) History of present illness: Patient presents yesterday to the emergency department with worsening weakness and change in mental status based on what family members have been saying. Patient has had a couple different visits over the last few months with sepsis. Patient is on peritoneal dialysis. Family members are concerned for infection in the left knee. They said over the past few days the patient has not been seeming like herself and she has been more lethargic and not wanting to do much.Patient does complain more of left knee pain. Patient was seen and examined at bedside this morning. She was lying semirecumbent in bed with left knee flexed at about 70 degrees. Patient is not able to extend knee much at all when asked. She says her knee is painful when she tries to extend it. Patient says she noticed some increased redness over the past few days. Due to patient's mental status, history is limited. Patient had left total knee arthroplasty performed on 09/25/2020. Patient denies chest pain, fever, shortness breath, nausea, vomiting, change in vision, loss of bowel/bladder con trol. Past Medical History Past Medical History: Hyperlipidemia, Hypertension, Renal Disease, Thyroid Disorder Additional Past Medical History / Comment(s): developmentally delayed, ESRD with nightly peritoneal dialysis, anemia, mineral bone disease, reverse deep palate/ some speech issues, swelling legs and ankles, hx of fx rt leg, hypothyroid, degenerative joint disease. History of Any Multi-Drug Resistant Organisms: None Reported Past Surgical History: Ear Surgery, Joint Replacement Additional Past Surgical History / Comment(s): 09/25/20 total L knee arthroplasty, 09/30/20 permacath R chest, 01/13/20 peritoneal dialysis catheter, septoplasty, bilateral myringotomy/tubes, oral surgery, Past Anesthesia/Blood Transfusion Reactions: Family History of Problems w/ Anesthesia Additional Past Anesthesia/Blood Transfusion Reaction / Comm: mom-ponv Past Psychological History: No Psychological Hx Reported Additional Psychological History / Comment(s): Mother reports Isis as having high function disabilty with limited understanding of presented information - momYamel is legal guardian. Pt recently had total L knee replacement and went to [facility] for rehab, mother states she does not want pt going to that facility again, pt left there nonambulatory. Smoking Status: Never smoker Past Alcohol Use History: None Reported Past Drug Use History: None Reported - Past Family History Father Family Medical History: Cancer Additional Family Medical History / Comment(s): Father of esophageal cancer. Mother Family Medical History: Cancer, Hyperlipidemia, Hypertension, Osteoarthritis (OA) Additional Family Medical History / Comment(s): Tip of R index finger cancer/amputated. Medications and Allergies Home Medications Medication Instructions Recorded Confirmed Type Levothyroxine Sodium [Synthroid] 112 mcg PO DAILY@0600 01/10/20 01/11/21 History Ferrous Sulfate [Iron (65 MG 325 mg PO DAILY 09/13/20 01/11/21 History Elemental)] Potassium Chloride [Klor-Con 10 ER] 10 meq PO DAILY 09/13/20 01/11/21 History allopurinoL [Zyloprim] 100 mg PO DAILY@0800 10/16/20 01/11/21 History Atorvastatin [Lipitor] 10 mg PO HS@2100 10/31/20 01/11/21 History Furosemide [Lasix] 80 mg PO BID 01/11/21 01/11/21 History Sevelamer [Renvela] 1,600 mg PO TID-W/MEALS 01/11/21 01/11/21 History Allergies Allergy/AdvReac Type Severity Reaction Status Date / Time lisinopril Allergy Unknown Verified 01/11/21 16:36 Physical Examination Left knee: Inspection: Scarring is present anteriorly over the left knee; left knee appears erythematous especially in the distal two thirds of the incision from total knee arthroplasty. Negative for any areas of purulence, drainage. Negative for open wounds Sensation: Sensation is equal, symmetric, intact bilaterally. Palpation: Mild TTP throughout the anterior knee diffusely. Knee is mildly warm to touch throughout. Some minimal swelling is present in the pre-patellar region. Negative Homans bilaterally Range of motion: Patient is a able to extend the left knee to about -40. Patient can flex the knee to about 115 degrees. Patient prefers to hold the knee in a flexed position as this is most comfortable position for her. Motor: Patient does have some weakness on resisted knee extension 4/5. Rest of exam 5/5 strength Neurovascular: Refill under 3 seconds. Dorsalis pedis pulse present, intact, 2+. Results - Labs Labs: Abnormal Lab Results - Last 24 Hours (Table) 01/11/21 01/11/21 01/11/21 Range/Units 16:07 16:07 16:07 MCHC 30.6 L (31.0-37.0) g/dL RDW 17.7 H (11.5-15.5) % Plt Count 563 H (150-450) k/uL Neutrophils # 8.8 H (1.3-7.7) k/uL ESR 93 H (0-20) mm/hr Sodium 134 L (137-145) mmol/L Potassium 6.0 H (3.5-5.1) mmol/L BUN 44 H (7-17) mg/dL Creatinine 7.97 H* (0.52-1.04) mg/dL Glucose 107 H (74-99) mg/dL AST 51 H (14-36) U/L C-Reactive Protein (<1.0) mg/dL 01/11/21 Range/Units 16:07 MCHC (31.0-37.0) g/dL RDW (11.5-15.5) % Plt Count (150-450) k/uL Neutrophils # (1.3-7.7) k/uL ESR (0-20) mm/hr Sodium (137-145) mmol/L Potassium (3.5-5.1) mmol/L BUN (7-17) mg/dL Creatinine (0.52-1.04) mg/dL Glucose (74-99) mg/dL AST (14-36) U/L C-Reactive Protein 4.1 H (<1.0) mg/dL H & H 01/11/21 Range/Units 16:07 Hgb 12.1 (11.4-16.0) gm/dL Hct 39.6 (34.0-46.0) % Coagulation 01/11/21 Range/Units 16:07 INR 1.0 (<1.2) Result Diagrams: 01/11/21 16:07 01/12/21 09:09 Assessment and Plan Assessment: 1. Left knee pain 2. Multiple medical comorbidities 3. Recent history of left total knee arthroplasty Plan: 1. Left knee pain - patient had left total knee arthroplasty performed on 09/25/2020. X-ray of knee demonstrates hardware in good position. There is some swelling noted in the prepatellar region. ESR and CRP are elevated. WBC within normal limits. Patient's knee is warm and erythematous. We will perform aspiration of knee and send for cultures. 2. Appreciate medical management 3. Appreciate consult 4. Pain management - stable at this time 5. GI/DVT ppx 6. PT/OT - weightbearing as tolerated with walker and assistance needed. Time with Patient: Less than 30
[2021-01-12] MEDS: LEVOTHYROXINE 112 MCG TAB PO SCH (11:45)
[2021-01-12] MEDS: DIALYSIS (PERIT 1.5%) 2,000 ML 30 G/2,000 ML BAG INTRAPERIT SCH ×2 (12:16→17:38)
[2021-01-12] MEDS: SEVELAMER 800 MG TAB PO SCH ×3 (12:39→17:16)
--- NOTE | 2021-01-12 13:04 | P.PCN ---
Date of Procedure: 01/12/21 Preoperative Diagnosis: left knee pain Postoperative Diagnosis: same Procedure(s) Performed: left knee aspiration Surgeon: Brandon Fernandez Estimated Blood Loss (ml): 0 Pathology: none sent (dry tap) Condition: stable Disposition: no change Indications for Procedure: -left knee pain -elevated ESR; elevated CRP - suprapatellar bursitis Operative Findings: dry tap - 0 cc fluid Description of Procedure: The risk and benefits of the procedure were discussed the patient today at [facility], as well as mother over the phone and both mother and patient are in good understanding and would like to proceed. A consent form was obtained prior to the procedure, a timeout was done at [facility] with the nursing staff. Appropriate paperwork was signed and dated. Patient was in semirecumbent position, Knee was prepped/draped in sterile fashion; the knee was prepped with 1 iodine swab and one alcohol swab. 20 gauge needle was inserted into supraptellar region. Patient held knee in flexed position which made procedure difficult to perform and moved during procedure. No fluid was aspirated. Needle was removed and bandage was placed over site.
[2021-01-12] MEDS: ATORVASTATIN 10 MG TAB PO SCH (20:28)
[2021-01-12] MEDS: FUROSEMIDE 80 MG TAB PO SCH (20:28)
--- NOTE | 2021-01-13 00:09 | P.HPIM ---
History of Present Illness H&P Date: 01/12/21 Chief Complaint: Left knee swelling and redness. Patient is a 55-year-old female history of ESRD on peritoneal dialysis, hypertension, hyperlipidemia, hypothyroidism, developmentally delayed, degenerative joint disease and history of left knee arthroplasty in September 2020 and was subsequently treated for infection. Patient was brought to the ER due to increasing swelling and redness over the left knee joint. Patient is also more fatigued and weak than usual. No complaints of fever. Her caregiver is her mother. Patient was given a dose of ceftriaxone while in the ER. Laboratory data showed WBC 10.6 hemoglobin 12.1 and platelets 563 Sodium 134 potassium 6.0 BUN 44 and creatinine 7.97 CRP 4.1 and ESR 93. X-ray of the left knee Showed soft tissue swelling. No fracture. Swelling increased compared to old exam. Review of Systems Constitutional: Patient denies any fever or chills . No generalized weakness or weight loss. Abdomen: Patient denied nausea vomiting and diarrhea and abdominal pain. Cardiovascular: Patient denies any chest pain or short of breath no palpitations. Respiratory: patient denied any cough is from production. No shortness of breath Neurologic: Patient denied any numbness or tingling headache. Musculoskeletal: Patient denies any complaints of joint swelling or deformity. Left knee swelling and redness Skin: Negative Psychiatric: Negative Endocrine: No heat or cold intolerance. No recent weight gain. Genitourinary: No dysuria or hematuria. All other 14 point ROS negative except the above Past Medical History Past Medical History: Hyperlipidemia, Hypertension, Renal Disease, Thyroid Disorder Additional Past Medical History / Comment(s): developmentally delayed, ESRD with nightly peritoneal dialysis, anemia, mineral bone disease, reverse deep palate/ some speech issues, swelling legs and ankles, hx of fx rt leg, hypothyroid, degenerative joint disease. History of Any Multi-Drug Resistant Organisms: None Reported Past Surgical History: Ear Surgery, Joint Replacement Additional Past Surgical History / Comment(s): 09/25/20 total L knee arthroplasty, 09/30/20 permacath R chest, 01/13/20 peritoneal dialysis catheter, septoplasty, bilateral myringotomy/tubes, oral surgery, Past Anesthesia/Blood Transfusion Reactions: Family History of Problems w/ Anesthesia Additional Past Anesthesia/Blood Transfusion Reaction / Comment(s): mom-ponv Past Psychological History: No Psychological Hx Reported Additional Psychological History / Comment(s): Mother reports Isis as having high function disabilty with limited understanding of presented information - mom, Yamel is legal guardian. Pt recently had total L knee replacement and went to [facility] for rehab, mother states she does not want pt going to that facility again, pt left there nonambulatory. Smoking Status: Never smoker Past Alcohol Use History: None Reported Past Drug Use History: None Reported - Past Family History Father Family Medical History: Cancer Additional Family Medical History / Comment(s): Father of esophageal cancer. Mother Family Medical History: Cancer, Hyperlipidemia, Hypertension, Osteoarthritis (OA) Additional Family Medical History / Comment(s): Tip of R index finger cancer/amputated. Medications and Allergies Home Medications Medication Instructions Recorded Confirmed Type Levothyroxine Sodium [Synthroid] 112 mcg PO DAILY@0600 01/10/20 01/11/21 History Ferrous Sulfate [Iron (65 MG 325 mg PO DAILY 09/13/20 01/11/21 History Elemental)] Potassium Chloride [Klor-Con 10 ER] 10 meq PO DAILY 09/13/20 01/11/21 History allopurinoL [Zyloprim] 100 mg PO DAILY@0800 10/16/20 01/11/21 History Atorvastatin [Lipitor] 10 mg PO HS@2100 10/31/20 01/11/21 History Furosemide [Lasix] 80 mg PO BID 01/11/21 01/11/21 History Sevelamer [Renvela] 1,600 mg PO TID-W/MEALS 01/11/21 01/11/21 History Allergies Allergy/AdvReac Type Severity Reaction Status Date / Time lisinopril Allergy Unknown Verified 01/11/21 16:36 Physical Exam Vitals: Vital Signs Temp Pulse Pulse Resp BP BP Pulse Ox 01/12/21 08:00 97.8 F 76 18 131/70 98 01/12/21 04:00 98 16 106/72 98 01/12/21 00:24 102 H 16 01/11/21 20:00 98.2 F 102 H 16 109/74 98 01/11/21 18:12 108 H 01/11/21 18:00 100 16 104/70 97 01/11/21 17:55 110 H 01/11/21 17:00 93 95 01/11/21 16:00 92 96 01/11/21 15:21 89 16 107/69 97 01/11/21 14:39 98.4 F 109 H 16 76/53 96 Intake and Output 01/11/21 01/12/21 01/12/21 22:59 06:59 14:59 Other: Voiding Method Bedpan Bedpan External Catheter External Catheter # Voids 0 1 # Bowel Movements 0 Weight 83.007 kg 79.5 kg PHYSICAL EXAMINATION: Patient is lying in the bed comfortably, no acute distress, awake alert and o riented.. HEENT: Normocephalic. Neck is supple. Pupils reactive. Nostrils clear. Oral cavity is moist. Neck reveals no JVD, carotid bruits, or thyromegaly. CHEST EXAMINATION: Trachea is central. Symmetrical expansion. Lung oakley clear to auscultation and percussion. CARDIAC: Normal S1, S2 with no gallops. No murmurs ABDOMEN: Soft. Bowel sounds normal. No organomegaly. No abdominal bruits. Extremities: reveal no edema. No clubbing or cyanosis. Left knee infrapatellar and patella. Redness mild tenderness. Neurologically awake, alert, oriented x3 with well-coordinated movements. No focal deficits noted Skin: No rash or skin lesions. Psychiatric: Coperative. Nonsuicidal Musculoskeletal: No joint swelling or deformity. Normal range of motion. Results CBC & Chem 7: 01/11/21 16:07 01/13/21 08:08 Labs: Abnormal Lab Results - Last 24 Hours (Table) 01/11/21 01/11/21 01/11/21 Range/Units 16:07 16:07 16:07 MCHC 30.6 L (31.0-37.0) g/dL RDW 17.7 H (11.5-15.5) % Plt Count 563 H (150-450) k/uL Neutrophils # 8.8 H (1.3-7.7) k/uL ESR 93 H (0-20) mm/hr Sodium 134 L (137-145) mmol/L Potassium 6.0 H (3.5-5.1) mmol/L BUN 44 H (7-17) mg/dL Creatinine 7.97 H* (0.52-1.04) mg/dL Glucose 107 H (74-99) mg/dL Magnesium (1.6-2.3) mg/dL AST 51 H (14-36) U/L C-Reactive Protein (<1.0) mg/dL 01/11/21 01/12/21 Range/Units 16:07 09:09 MCHC (31.0-37.0) g/dL RDW (11.5-15.5) % Plt Count (150-450) k/uL Neutrophils # (1.3-7.7) k/uL ESR (0-20) mm/hr Sodium (137-145) mmol/L Potassium (3.5-5.1) mmol/L BUN 48 H (7-17) mg/dL Creatinine 8.67 H* (0.52-1.04) mg/dL Glucose (74-99) mg/dL Magnesium 3.2 H (1.6-2.3) mg/dL AST (14-36) U/L C-Reactive Protein 4.1 H (<1.0) mg/dL Thrombosis Risk Factor Assmnt - DVT/VTE Prophylaxis DVT/VTE Prophylaxis: Pharmacologic Prophylaxis ordered Assessment and Plan Assessment: Left knee pain with redness likely suprapatellar bursitis. Unlikely septic arthritis septic arthritis. Elevated CRP and ESR levels. No leukocytosis. History of left total knee arthroplasty in September 2020 ESRD on peritoneal dialysis. Hypertension Hyperlipidemia Hypothyroidism Developmentally delayed Degenerative joint disease DVT prophylaxis with heparin subcu Plan: Patient was given antibiotics in the form of ceftriaxone in the ER. Patient was seen by orthopedic surgery and is planning for knee aspiration. Follow-up jaswinder yates reports. Continue symptomatic management for pain. Follow-up blood cultures. Nephrology is on board and is currently getting peritoneal dialysis. We will continue to follow closely. Time with Patient: Greater than 30
[2021-01-13] MEDS: DIALYSIS (PERIT 1.5%) 2,000 ML 30 G/2,000 ML BAG INTRAPERIT SCH ×4 (00:28→17:37)
[2021-01-13 03:13] LABS: Glucose,Whole Blood 118 mg/dL (75-99)
[2021-01-13] MEDS: LEVOTHYROXINE 112 MCG TAB PO SCH (06:40)
[2021-01-13] MEDS: SEVELAMER 800 MG TAB PO SCH ×3 (06:40→16:54)
--- NOTE | 2021-01-13 08:32 | P.PN ---
Subjective Progress Note Date: 01/13/21 Principal diagnosis: left knee pain Patient seen at bedside this morning. Patient was lying semirecumbent bed. Patient keeps left knee in flexed position about 100 110 flexion. Knee still appears somewhat erythematous in the distal aspect incision. Patient mentions she has used the bathroom. Difficult to obtain rest of HPI due to patient status. Patient denies chest pain, fever, shortness breath, nausea, vomiting, change in vision, loss of bowel/bladder control. Objective - Vital Signs Vital signs: Vital Signs Temp 97.8 F 01/13/21 08:00 Pulse 79 01/13/21 08:00 Resp 20 01/13/21 08:00 BP 111/75 01/13/21 08:00 Pulse Ox 97 01/13/21 08:00 Intake & Output 01/12/21 01/13/21 01/13/21 18:59 06:59 18:59 Intake Total 120 Balance 120 Weight 84 kg Intake: Oral 120 Other: Voiding Method Bedpan External Catheter # Voids 3 0 1 # Bowel Movements 0 - Exam Left knee: Inspection: Scarring is present anteriorly over the left knee; left knee appears mildly erythematous in the distal two thirds of the incision from total knee arthroplasty. Negative for any areas of purulence, drainage. Negative for open wounds Sensation: Sensation is equal, symmetric, intact bilaterally. Palpation: Mild TTP throughout the anterior knee diffusely. Knee is mildly warm to touch throughout. Some minimal swelling is present in the pre-patellar region. Negative Homans bilaterally Range of motion: Patient is a able to extend the left knee to about -40. Patient can flex the knee to about 115 degrees. Patient prefers to hold the knee in a flexed position as this is most comfortable position for her. Motor: Patient does have some weakness on resisted knee extension 4/5. Rest of exam 5/5 strength Neurovascular: Refill under 3 seconds. Dorsalis pedis pulse present, intact, 2+. - Labs CBC & Chem 7: 01/11/21 16:07 01/12/21 09:09 Labs: Abnormal Lab Results - Last 24 Hours (Table) 01/12/21 01/13/21 Range/Units 09:09 03:11 BUN 48 H (7-17) mg/dL Creatinine 8.67 H* (0.52-1.04) mg/dL POC Glucose (mg/dL) 118 H (75-99) mg/dL Magnesium 3.2 H (1.6-2.3) mg/dL Microbiology - Last 24 Hours (Table) 01/11/21 16:16 Blood Culture - Preliminary Blood No Growth after 24 hours 01/11/21 16:07 Blood Culture - Preliminary Blood No Growth after 24 hours Assessment and Plan Assessment: 1. Left knee pain 2. Multiple medical comorbidities 3. Recent history of left total knee arthroplasty Plan: 1. Left knee pain - patient had left total knee arthroplasty performed on 09/25/2020. X-ray of knee demonstrates hardware in good position. Patient is able to respond to questions. She still keeps left knee in flexed position. ESR and CRP are elevated. WBC within normal limits and no fever. Aspiration performed yesterday with dry tap. Difficult to obtain with position of patients knee and patient status and moving leg throughout procedure. We will continue to follow while in hospital 2. Appreciate medical management 3. Appreciate consult 4. Pain management - stable at this time 5. GI/DVT ppx 6. PT/OT - weightbearing as tolerated with walker and assistance needed. Time with Patient: Less than 30
[2021-01-13 08:53] LABS: Magnesium 2.8 mg/dL (1.6-2.3); Potassium 4.3 mmol/L (3.5-5.1)
[2021-01-13] MEDS: HEPARIN SODIUM,PORCINE/PF 5,000 UNIT/0.5 ML SYRINGE SQ SCH ×2 (08:58→15:56)
[2021-01-13] MEDS: FUROSEMIDE 80 MG TAB PO SCH ×2 (08:58→21:47)
[2021-01-13] MEDS: allopurinoL 100 MG TAB PO SCH (08:58)
--- NOTE | 2021-01-13 09:04 | P.PN ---
Subjective Patient is seen in follow-up for end-stage renal disease. She is maintained on peritoneal dialysis. She wants to go home. No changes overnight. Vital signs are stable. General: The patient appeared well nourished and normally developed. HEENT: Head exam is unremarkable. LUNGS: Breath sounds decreased. HEART: Rate and Rhythm are regular. ABDOMEN: Soft, no distention. EXTREMITITES: No edema. Objective - Vital Signs Vital signs: Vital Signs Temp 97.8 F 01/13/21 08:00 Pulse 79 01/13/21 08:00 Resp 20 01/13/21 08:00 BP 111/75 01/13/21 08:00 Pulse Ox 97 01/13/21 08:00 Intake & Output 01/12/21 01/13/21 01/13/21 18:59 06:59 18:59 Intake Total 120 Balance 120 Weight 84 kg Intake: Oral 120 Other: Voiding Method Bedpan External Catheter # Voids 3 0 1 # Bowel Movements 0 - Labs CBC & Chem 7: 01/11/21 16:07 01/13/21 08:08 Labs: Abnormal Lab Results - Last 24 Hours (Table) 01/12/21 01/13/21 01/13/21 Range/Units 09:09 03:11 08:08 Sodium 136 L (137-145) mmol/L Carbon Dioxide 19 L (22-30) mmol/L BUN 48 H 43 H (7-17) mg/dL Creatinine 8.67 H* 8.19 H* (0.52-1.04) mg/dL Glucose 136 H (74-99) mg/dL POC Glucose (mg/dL) 118 H (75-99) mg/dL Magnesium 3.2 H 2.8 H (1.6-2.3) mg/dL Microbiology - Last 24 Hours (Table) 01/11/21 16:16 Blood Culture - Preliminary Blood No Growth after 24 hours 01/11/21 16:07 Blood Culture - Preliminary Blood No Growth after 24 hours Assessment and Plan Plan: Assessment: 1. End-stage renal disease maintained on peritoneal dialysis. 2. Left knee infection. Orthopedic surgery following. 3. Left knee replacement done in September 2020. 4. Hyperkalemia. That was a hemolyzed specimen. Repeat potassium level normal. 5. Chronic kidney disease mineral bone disease maintained on Renvela. Plan: Maintain current peritoneal dialysis exchanges - 2 L every 6 hours with 1.5% dextrose solution. Follow-up cultures. No changes from nephrology standpoint.
[2021-01-13 16:21] LABS: Glucose,Whole Blood 151 mg/dL (75-99)
[2021-01-13] MEDS: ATORVASTATIN 10 MG TAB PO SCH (21:47)
[2021-01-14] MEDS: DIALYSIS (PERIT 1.5%) 2,000 ML 30 G/2,000 ML BAG INTRAPERIT SCH ×5 (00:54→23:10)
[2021-01-14] MEDS: HEPARIN SODIUM,PORCINE/PF 5,000 UNIT/0.5 ML SYRINGE SQ SCH ×4 (01:00→23:11)
[2021-01-14] MEDS: LEVOTHYROXINE 112 MCG TAB PO SCH (06:51)
[2021-01-14] MEDS: allopurinoL 100 MG TAB PO SCH (08:19)
[2021-01-14] MEDS: FUROSEMIDE 80 MG TAB PO SCH ×2 (08:19→21:04)
[2021-01-14] MEDS: SEVELAMER 800 MG TAB PO SCH ×3 (08:19→16:36)
--- NOTE | 2021-01-14 09:11 | P.PN ---
Subjective Patient is seen in follow-up for end-stage renal disease. She is maintained on peritoneal dialysis. She wants to go home. No changes overnight. No problems with dialysis exchanges. Vital signs are stable. General: The patient appeared well nourished and normally developed. HEENT: Head exam is unremarkable. LUNGS: Breath sounds decreased. HEART: Rate and Rhythm are regular. ABDOMEN: Soft, no distention. EXTREMITITES: No edema. Objective - Vital Signs Vital signs: Vital Signs Temp 97.9 F 01/14/21 08:00 Pulse 85 01/14/21 08:00 Resp 18 01/14/21 08:00 BP 121/79 01/14/21 08:00 Pulse Ox 98 01/14/21 08:00 Intake & Output 01/13/21 01/14/21 01/14/21 18:59 06:59 18:59 Intake Total 360 0 Balance 360 0 Weight 82 kg Intake: Oral 360 0 Other: Voiding Method Bedpan External Catheter # Voids 1 1 # Bowel Movements 0 - Labs CBC & Chem 7: 01/11/21 16:07 01/13/21 08:08 Labs: Abnormal Lab Results - Last 24 Hours (Table) 01/13/21 Range/Units 16:19 POC Glucose (mg/dL) 151 H (75-99) mg/dL Microbiology - Last 24 Hours (Table) 01/11/21 16:16 Blood Culture - Preliminary Blood No Growth after 48 hours 01/11/21 16:07 Blood Culture - Preliminary Blood No Growth after 48 hours Assessment and Plan Plan: Assessment: 1. End-stage renal disease maintained on peritoneal dialysis. 2. Left knee infection. Orthopedic surgery following. 3. Left knee replacement done in September 2020. 4. Hyperkalemia. That was a hemolyzed specimen. Repeat potassium level normal. 5. Chronic kidney disease mineral bone disease maintained on Renvela. Plan: Maintain current peritoneal dialysis exchanges - 2 L every 6 hours with 1.5% dextrose solution. Follow-up cultures. No changes from nephrology standpoint.
--- NOTE | 2021-01-14 11:44 | P.PN ---
Subjective Progress Note Date: 01/13/21 Principal diagnosis: Possible left patellar bursitis. Patient is a 55-year-old female history of ESRD on peritoneal dialysis, hypertension, hyperlipidemia, hypothyroidism, developmentally delayed, degenerative joint disease and history of left knee arthroplasty in September 2020 and was subsequently treated for infection. Patient was brought to the ER due to increasing swelling and redness over the left knee joint. Patient is also more fatigued and weak than usual. No complaints of fever. Her caregiver is her mother. Patient was given a dose of ceftriaxone while in the ER. Laboratory data showed WBC 10.6 hemoglobin 12.1 and platelets 563 Sodium 134 potassium 6.0 BUN 44 and creatinine 7.97 CRP 4.1 and ESR 93. X-ray of the left knee Showed soft tissue swelling. No fracture. Swelling increased compared to old exam. 01/13/2021 Patient is currently resting in the bed. Awake alert and oriented times. Patient has high autism. Patient has been afebrile. Left patellar reason is still erythematous. Patient is able to flex her knee. Status knee aspiration Which was essentially. Orthopedic surgery is following. Patient has been afebrile. Tolerating oral diet. Continued on. Urinalysis. No commerce abdominal pain. No nausea vomiting or diarrhea. No chest pain or shortness breath. Current medications reviewed. Objective - Vital Signs Vital signs: Vital Signs Temp 98.0 F 01/13/21 11:54 Pulse 79 01/13/21 11:54 Resp 20 01/13/21 11:54 BP 118/81 01/13/21 11:54 Pulse Ox 99 01/13/21 11:54 Intake & Output 01/12/21 01/13/21 01/13/21 18:59 06:59 18:59 Intake Total 240 Balance 240 Weight 84 kg Intake: Oral 240 Other: Voiding Method Bedpan External Catheter # Voids 3 0 1 # Bowel Movements 0 - Exam PHYSICAL EXAMINATION: Patient is lying in the bed comfortably, no acute distress, awake alert and oriented.. HEENT: Normocephalic. Neck is supple. Pupils reactive. Nostrils clear. Oral cavity is moist. Neck reveals no JVD, carotid bruits, or thyromegaly. CHEST EXAMINATION: Trachea is central. Symmetrical expansion. Lung oakley clear to auscultation and percussion. CARDIAC: Normal S1, S2 with no gallops. No murmurs ABDOMEN: Soft. Bowel sounds normal. No organomegaly. No abdominal bruits. Extremities: reveal no edema. No clubbing or cyanosis. Left knee infrapatellar and patella. Redness mild tenderness. Neurologically awake, alert, oriented x3 with well-coordinated movements. No focal deficits noted Skin: No rash or skin lesions. Psychiatric: Coperative. Nonsuicidal Musculoskeletal: No joint swelling or deformity. Normal range of motion. - Labs CBC & Chem 7: 01/11/21 16:07 01/13/21 08:08 Labs: Abnormal Lab Results - Last 24 Hours (Table) 01/13/21 01/13/21 Range/Units 03:11 08:08 Sodium 136 L (137-145) mmol/L Carbon Dioxide 19 L (22-30) mmol/L BUN 43 H (7-17) mg/dL Creatinine 8.19 H* (0.52-1.04) mg/dL Glucose 136 H (74-99) mg/dL POC Glucose (mg/dL) 118 H (75-99) mg/dL Magnesium 2.8 H (1.6-2.3) mg/dL Microbiology - Last 24 Hours (Table) 01/11/21 16:16 Blood Culture - Preliminary Blood No Growth after 24 hours 01/11/21 16:07 Blood Culture - Preliminary Blood No Growth after 24 hours Assessment and Plan Assessment: Left knee pain with redness likely suprapatellar bursitis. Unlikely septic arthritis septic arthritis. Elevated CRP and ESR levels. No leukocytosis. History of left total knee arthroplasty in September 2020 ESRD on peritoneal dialysis. Hypertension Hyperlipidemia Hypothyroidism Developmentally delayed Degenerative joint disease DVT prophylaxis with heparin subcu Plan: Patient was given antibiotics in the form of ceftriaxone in the ER. Patient was seen by orthopedic surgery and right knee aspiration but is dry tap.. Follow-up culture reports. Continue with warm compresses and hepatic antibiotics will be started. Continue symptomatic management for pain. Follow-up blood cultures. Nephrology is on board and is currently getting peritoneal dialysis. We will continue to follow closely. PTOT will be consulted. Time with Patient: Greater than 30
--- NOTE | 2021-01-14 12:35 | P.PN ---
Subjective Progress Note Date: 01/14/21 Principal diagnosis: left knee pain Patient seen at bedside this morning. Patient was lying semirecumbent bed. Patient keeps left knee in flexed position about 100-110 flexion. Knee still appears somewhat erythematous in the distal aspect incision. Patient mentions she has used the bathroom. Difficult to obtain rest of HPI due to patient status. Patient denies chest pain, fever, shortness breath, nausea, vomiting, change in vision, loss of bowel/bladder control. Objective - Vital Signs Vital signs: Vital Signs Temp 97.3 F L 01/14/21 11:45 Pulse 101 H 01/14/21 11:45 Resp 18 01/14/21 11:45 BP 130/84 01/14/21 11:45 Pulse Ox 99 01/14/21 11:45 Intake & Output 01/13/21 01/14/21 01/14/21 18:59 06:59 18:59 Intake Total 360 0 Balance 360 0 Weight 82 kg Intake: Oral 360 0 Other: Voiding Method Bedpan Bedpan External Catheter External Catheter # Voids 1 1 # Bowel Movements 0 - Exam Left knee: Inspection: Scarring is present anteriorly over the left knee; left knee appears mildly erythematous in the distal two thirds of the incision from total knee arthroplasty. Negative for any areas of purulence, drainage. Negative for open wounds Sensation: Sensation is equal, symmetric, intact bilaterally. Palpation: Mild TTP throughout the anterior knee diffusely. Knee is mildly warm to touch throughout. Some minimal swelling is present in the pre-patellar region. Negative Homans bilaterally Range of motion: Patient is a able to extend the left knee to about -40. Patient can flex the knee to about 115 degrees. Patient prefers to hold the knee in a flexed position as this is most comfortable position for her. Motor: Patient does have some weakness on resisted knee extension 4/5. Rest of exam 5/5 strength Neurovascular: Refill under 3 seconds. Dorsalis pedis pulse present, intact, 2+. - Labs CBC & Chem 7: 01/11/21 16:07 01/13/21 08:08 Labs: Abnormal Lab Results - Last 24 Hours (Table) 01/13/21 Range/Units 16:19 POC Glucose (mg/dL) 151 H (75-99) mg/dL Microbiology - Last 24 Hours (Table) 01/11/21 16:16 Blood Culture - Preliminary Blood No Growth after 48 hours 01/11/21 16:07 Blood Culture - Preliminary Blood No Growth after 48 hours Assessment and Plan Assessment: 1. Left knee pain 2. Multiple medical comorbidities 3. Recent history of left total knee arthroplasty Plan: 1. Left knee pain - patient had left total knee arthroplasty performed on 09/25/2020. X-ray of knee demonstrates hardware in good position. She still keeps left knee in flexed position. ESR and CRP are elevated. WBC within normal limits and no fever. Aspiration performed Thursday01/12/2021 with dry tap. Difficult to obtain with position of patients knee and patient status and moving leg throughout procedure. We do not recommend any urgent orthopedic surgical intervention at this time. ID has been consulted. 2. Appreciate medical management 3. Appreciate Infectious Disease Management - ID has been consulted for Left knee 4. Pain management - stable at this time 5. GI/DVT ppx 6. PT/OT - weightbearing as tolerated with walker and assistance needed. Time with Patient: Less than 30
--- NOTE | 2021-01-14 14:00 | P.PCN ---
Date of Procedure: 01/14/21 Preoperative Diagnosis: Left knee cellulitis, possible deep infection left knee, history of left total knee arthroplasty Postoperative Diagnosis: Same Procedure(s) Performed: Left knee aspiration Surgeon: Vega Sewell [employer] Maintenance Technician #1: Gordon Eckert Condition: stable Disposition: no change Indications for Procedure: Left knee cellulitis with possible deep infection left knee Description of Procedure: The procedure was discussed with the patient's family at bedside along with the patient. Patient's legal guardian which is her mother did sign consent for the procedure. The left knee was prepped sterilely with 1 iodine swab and one alcohol swab. A 20-gauge needle was then used to inject 3 mL of 1% plain lidocaine via the suprapatellar approach. Aspiration was unattended, we were able to aspirate about 5 mL of bloody serosanguineous fluid. There was no obvious purulence draining the procedure. A bandages and placed over the knee. Fluid was then placed in a red top and green top tube along with a culture swab. Proper orders were placed. Proper identification was placed and all tubes and then sent to lab by nursing staff.
[2021-01-14 14:42] LABS: Appearance,BF Bloody; Nucleated Cells, Body Fluid 16500 /uL; RBC, Body Fluid 62000 /uL
[2021-01-14 15:02] LABS: Mononuclear WBC,Body Fluid 8 %; Polynuclear WBC,Body Fluid 92 %; Total Cells Counted,Body Fluid 100
[2021-01-14] MEDS: ATORVASTATIN 10 MG TAB PO SCH (21:04)
--- NOTE | 2021-01-14 22:50 | P.CONS ---
History of Present Illness - Reason for Consult Consult date: 01/14/21 left knee cellulitis Requesting physician: Vega Sewell - Chief Complaint left knee swelling and redness x few days - History of Present Illness History of present illness : Patient is a 55-year-old female with a past medical history significant for cognitive delay end-stage renal disease on peritoneal dialysis in this patient who did have left knee replacement in September 2020 patient was brought to the hospital 3 days ago for evaluation of left knee milligrams more swollen red and painful, there is no clear history of any trauma, patient complaining of pain to the left knee area however she unable to quantify it any further, patient on presentation to the hospital was afebrile and no fever has been recorded during this hospital stay patient did have a no rmal white count however sed rate was elevated at 93 BUN and creatinine has been elevated patient did have blood cultures obtained which has been negative so far patient has been treated with the cefazolin 1 g every 18 hours dose has been adjusted to the kidney function infectious disease was consulted today with concern for the left knee cellulitis in this patient who was recently admitted in the beginning of October 2020 with MSSA bacteremia which was thought to be related to her permacath which was subsequent discontinued at that point patient did not have any swelling or redness of the left knee area the permacath was subsequent discontinued and the patient have negative blood cultures phone follow-up and that has been treated with vancomycin through dialysis, most information has been obtained from review the chart as the patient does not provide any history Review of system: Positive point has been mentioned in HPI complete review could not be obtained because of underlying mental status. Past medical history : Reviewed, documented below Past surgical history : Reviewed, documented below Social history: Reviewed, documented below Medications: Reviewed, as documented below GENERAL DESCRIPTION: Middle-aged female lying in bed, no distress. No tachypnea or accessory muscle of respiration use. HEENT: Shows Pallor , no scleral icterus. Oral mucous membrane is dry. NECK: Trachea central, no thyromegaly. LUNGS: Unlabored breathing. Clear to auscultation anteriorly. No wheeze or crackle. HEART: S1, S2, regular rate and rhythm. ABDOMEN: Soft, no tenderness , guarding or rigidity EXTREMITIES: No edema of feet. Left knee is swollen and red especially at the distal end of the incision with some swelling there but no drainage was noticed SKIN: No rash, no masses palpable. NEUROLOGICAL: The patient is awake, alert, orientation could not determine because of underlying developmental delay LABS AND RADIOLOGY: Reviewed results see below Assessment : Patient with left knee cellulitis in this patient who did have a left knee replacement in September 2020 subsequently the patient did have admission to the hospital in October for a permacath infection secondary to MSSA that was subsequent discontinued now the patient is present to hospital with left knee cellulitis suspicious is high for possible seeding of her left knee at the time of her recent bacteremia and could be related to MSSA Plan: 1-discussed with Ortho for aspirate of the knee and cultures to guide further antibiotic therapy 2-cefazolin 1 g every 8 and her dose has been adjusted to the kidney function We will follow on clinical condition and cultures to further adjust medication if needed Thank you for this consultation we will follow the patient along with you Past Medical History Past Medical History: Hyperlipidemia, Hypertension, Renal Disease, Thyroid Dis order Additional Past Medical History / Comment(s): developmentally delayed, ESRD with nightly peritoneal dialysis, anemia, mineral bone disease, reverse deep palate/ some speech issues, swelling legs and ankles, hx of fx rt leg, hypothyroid, degenerative joint disease. History of Any Multi-Drug Resistant Organisms: None Reported Past Surgical History: Ear Surgery, Joint Replacement Additional Past Surgical History / Comment(s): 09/25/20 total L knee arthroplasty, 09/30/20 permacath R chest, 01/13/20 peritoneal dialysis catheter, septoplasty, bilateral myringotomy/tubes, oral surgery, Past Anesthesia/Blood Transfusion Reactions: Family History of Problems w/ Anesthesia Additional Past Anesthesia/Blood Transfusion Reaction / Comm: mom-ponv Past Psychological History: No Psychological Hx Reported Additional Psychological History / Comment(s): Mother reports Isis as having high function disabilty with limited understanding of presented information - Yamel ibarra is legal guardian. Pt recently had total L knee replacement and went to [facility] for rehab, mother states she does not want pt going to that facility again, pt left there nonambulatory. Smoking Status: Never smoker Past Alcohol Use History: None Reported Past Drug Use History: None Reported - Past Family History Father Family Medical History: Cancer Additional Family Medical History / Comment(s): Father of esophageal cancer. Mother Family Medical History: Cancer, Hyperlipidemia, Hypertension, Osteoarthritis (OA) Additional Family Medical History / Comment(s): Tip of R index finger cancer/am putated. Medications and Allergies Home Medications Medication Instructions Recorded Confirmed Type Levothyroxine Sodium [Synthroid] 112 mcg PO DAILY@0600 01/10/20 01/11/21 History Ferrous Sulfate [Iron (65 MG 325 mg PO DAILY 09/13/20 01/11/21 History Elemental)] Potassium Chloride [Klor-Con 10 ER] 10 meq PO DAILY 09/13/20 01/11/21 History allopurinoL [Zyloprim] 100 mg PO DAILY@0800 10/16/20 01/11/21 History Atorvastatin [Lipitor] 10 mg PO HS@2100 10/31/20 01/11/21 History Furosemide [Lasix] 80 mg PO BID 01/11/21 01/11/21 History Sevelamer [Renvela] 1,600 mg PO TID-W/MEALS 01/11/21 01/11/21 History Allergies Allergy/AdvReac Type Severity Reaction Status Date / Time lisinopril Allergy Unknown Verified 01/11/21 16:36 Physical Exam Vitals: Vital Signs Temp Pulse Pulse Resp BP BP Pulse Ox 01/14/21 12:33 97.3 F L 101 H 18 130/84 99 01/14/21 11:45 97.3 F L 101 H 18 130/84 99 01/14/21 08:00 97.9 F 85 18 121/79 98 01/14/21 06:58 98.5 F 85 16 123/68 96 01/14/21 04:00 97.5 F L 85 16 123/68 96 01/14/21 02:00 85 20 01/14/21 00:25 97.6 F 85 20 120/73 96 01/14/21 00:00 97.6 F 85 20 120/73 96 01/13/21 20:00 98.4 F 88 20 121/77 98 01/13/21 18:30 97.9 F 96 20 99/66 97 01/13/21 15:59 97.9 F 100 20 118/80 97 Intake and Output 01/13/21 01/14/21 01/14/21 22:59 06:59 14:59 Intake Total 120 0 Balance 120 0 Intake: Oral 120 0 Other: Voiding Method Bedpan Bedpan Bedpan External Catheter External Catheter External Catheter # Voids 1 # Bowel Movements 0 Weight 82 kg Results CBC & Chem 7: 01/11/21 16:07 01/13/21 08:08 Labs: Abnormal Lab Results - Last 24 Hours (Table) 01/13/21 Range/Units 16:19 POC Glucose (mg/dL) 151 H (75-99) mg/dL Microbiology - Last 24 Hours (Table) 01/11/21 16:16 Blood Culture - Preliminary Blood No Growth after 48 hours 01/11/21 16:07 Blood Culture - Preliminary Blood No Growth after 48 hours
[2021-01-15] MEDS: DIALYSIS (PERIT 1.5%) 2,000 ML 30 G/2,000 ML BAG INTRAPERIT SCH ×4 (05:03→22:55)
[2021-01-15] MEDS: SEVELAMER 800 MG TAB PO SCH ×3 (05:30→18:05)
[2021-01-15] MEDS: LEVOTHYROXINE 112 MCG TAB PO SCH (05:30)
[2021-01-15] MEDS: HEPARIN SODIUM,PORCINE/PF 5,000 UNIT/0.5 ML SYRINGE SQ SCH ×3 (08:00→22:56)
[2021-01-15] MEDS: allopurinoL 100 MG TAB PO SCH (08:00)
[2021-01-15] MEDS: FUROSEMIDE 80 MG TAB PO SCH ×2 (08:00→19:38)
[2021-01-15 08:22] LABS: Potassium 2.8 mmol/L (3.5-5.1)
[2021-01-15 08:23] LABS: Anisocytosis Slight; Basophils % (A) 0 %; Eosinophils # (A) 0.1 k/uL (0-0.7); Eosinophils % (A) 1 %; HCT 40.2 % (34.0-46.0); HGB 12.5 gm/dL (11.4-16.0); Hypochromasia Moderate; Lymphocytes # (A) 0.8 k/uL (1.0-4.8); Lymphocytes % (A) 8 %; MCH 30.3 pg (25.0-35.0); MCV 97.6 fL (80.0-100.0); Macrocytosis Slight; Monocytes # (A) 0.6 k/uL (0-1.0); Monocytes % (A) 6 %; Neutrophils # (A) 8.7 k/uL (1.3-7.7); Neutrophils % (A) 84 %; Platelet Count 400 k/uL (150-450); RBC 4.12 m/uL (3.80-5.40); RDW 17.6 % (11.5-15.5); WBC 10.4 k/uL (3.8-10.6)
--- NOTE | 2021-01-15 10:56 | P.PN ---
Subjective Progress Note Date: 01/14/21 Principal diagnosis: Possible left patellar bursitis. Patient is a 55-year-old female history of ESRD on peritoneal dialysis, hypertension, hyperlipidemia, hypothyroidism, developmentally delayed, degenerative joint disease and history of left knee arthroplasty in September 2020 and was subsequently treated for infection. Patient was brought to the ER due to increasing swelling and redness over the left knee joint. Patient is also more fatigued and weak than usual. No complaints of fever. Her caregiver is her mother. Patient was given a dose of ceftriaxone while in the ER. Laboratory data showed WBC 10.6 hemoglobin 12.1 and platelets 563 Sodium 134 potassium 6.0 BUN 44 and creatinine 7.97 CRP 4.1 and ESR 93. X-ray of the left knee Showed soft tissue swelling. No fracture. Swelling increased compared to old exam. 01/13/2021 Patient is currently resting in the bed. Awake alert and oriented times. Patient has high autism. Patient has been afebrile. Left patellar reason is still erythematous. Patient is able to flex her knee. Status knee aspiration Which was essentially. Orthopedic surgery is following. Patient has been afebrile. Tolerating oral diet. Continued on. Urinalysis. No commerce abdominal pain. No nausea vomiting or diarrhea. No chest pain or shortness breath. 01/14/2021 Patient is currently resting in the bed. No complaints of fever or chills. Still having left knee cellulitis with swelling and redness. Possible septic arthritis is being considered with history of recent MSSA bacteremia due to permacath infection. ID is following. Patient was seen by orthopedic surgery and left knee aspiration was done. Follow-up culture reports. Patient is being continued on antibiotics in the form of cefazolin. Denied any chest pain or shortness of breath. No nausea vomiting or abdominal pain or diarrhea. Tolerating oral diet. Patient is being continued on peritoneal dialysis otherwise. Laboratory data showed sodium 136 potassium 4.3 BUN 43 and creatinine 8.19 and blood sugar is 136 Current medications reviewed. Objective - Vital Signs Vital signs: Vital Signs Temp 98.4 F 01/14/21 16:00 Pulse 89 01/14/21 16:00 Resp 16 01/14/21 16:00 BP 110/60 01/14/21 16:00 Pulse Ox 100 01/14/21 16:00 Intake & Output 01/13/21 01/14/21 01/14/21 18:59 06:59 18:59 Intake Total 360 0 Output Total 2 Balance 360 -2 Weight 82 kg Intake: Oral 360 0 Output: Urine/Stool Mix 2 Other: Voiding Method Bedpan Bedpan External Catheter External Catheter # Voids 1 1 1 # Bowel Movements 0 2 - Exam PHYSICAL EXAMINATION: Patient is lying in the bed comfortably, no acute distress, awake alert and oriented.. HEENT: Normocephalic. Neck is supple. Pupils reactive. Nostrils clear. Oral cavity is moist. Neck reveals no JVD, carotid bruits, or thyromegaly. CHEST EXAMINATION: Trachea is central. Symmetrical expansion. Lung oakley clear to auscultation and percussion. CARDIAC: Normal S1, S2 with no gallops. No murmurs ABDOMEN: Soft. Bowel sounds normal. No organomegaly. No abdominal bruits. Extremities: reveal no edema. No clubbing or cyanosis. Left knee infrapatellar and patella. Redness mild tenderness. Neurologically awake, alert, oriented x3 with well-coordinated movements. No focal deficits noted Skin: No rash or skin lesions. Psychiatric: Coperative. Nonsuicidal Musculoskeletal: No joint swelling or deformity. Normal range of motion. - Labs CBC & Chem 7: 01/15/21 07:35 01/15/21 07:35 Labs: Microbiology - Last 24 Hours (Table) 01/11/21 16:16 Blood Culture - Preliminary Blood No Growth after 48 hours 01/11/21 16:07 Blood Culture - Preliminary Blood No Growth after 48 hours Assessment and Plan Assessment: Left knee pain with redness likely suprapatellar bursitis with knee cellulitis. Suspected septic arthritis septic arthritis due to recent MSSA bacteremia. Elevated CRP and ESR levels. No leukocytosis. History of left total knee arthroplasty in September 2020 ESRD on peritoneal dialysis. Hypertension Hyperlipidemia Hypothyroidism Developmentally delayed Degenerative joint disease DVT prophylaxis with heparin subcu Plan: Patient was given antibiotics in the form of ceftriaxone in the ER. Patient was started on cefazolin. Patient was seen by orthopedic surgery and right knee aspiration but is dry tap.. Follow-up culture reports. Left knee aspiration was done by orthopedic surgery. ID is on board. Continue with warm compresses and continue with antibiotics.. Continue symptomatic management for pain. Follow-up blood cultures. Nephrology is on board and is currently getting peritoneal dialysis. We will continue to follow closely. PTOT will be consulted. Time with Patient: Greater than 30
[2021-01-15] MEDS ORDERED: POTASSIUM CHLORIDE 20 MEQ in WATER FOR INJECTION 1 100ML.BAG IVPB ONE (11:00)
[2021-01-15] MEDS: POTASSIUM CHLORIDE ER 20 MEQ TAB.ER PO SCH ×2 (12:06→14:17)
--- NOTE | 2021-01-15 12:12 | PN ---
PROGRESS NOTE Patient is seen for followup for end-stage renal disease. Currently patient is maintained on peritoneal dialysis. She is doing fairly well. Awaiting discharge. PHYSICAL EXAMINATION: Blood pressure 101/75, heart rate 83 per minute, she is afebrile. Examination of the heart S1, S2. Examination of lungs, decreased breath sounds at the bases. Abdomen is soft, nontender. Examination of lower extremities shows no evidence of edema. The patient is able to move all four extremities. LAB: Show sodium 138, potassium 2.8 today. BUN 33, creatinine 6.59. ASSESSMENT: 1. End-stage renal disease, maintained on peritoneal dialysis and tolerating treatment well. 2. Chronic kidney disease mineral bone disorder, maintained on Renvela. 3. Hypokalemia, status post replacement. 4. Status post left knee replacement in September of 2020 with left knee infection, being followed by Orthopedic surgery. PLAN: Continue current PD exchanges. Agree with potassium replacement. MMODL / IJN: [id number] /
--- NOTE | 2021-01-15 13:28 | PN ---
PROGRESS NOTE DATE OF SERVICE: 01/15/2021 REASON FOR FOLLOWUP: Left knee cellulitis. INTERVAL HISTORY: The patient is afebrile. The patient is breathing comfortably. Mentions she wants to go home. Denies having any chest pain or shortness of breath or cough. No abdominal pain or worsening pain to the left knee area. PHYSICAL EXAMINATION: Blood pressure 121/79 with a pulse of 77, temperature 98. She is 99% on room air. General description is a middle-aged female lying in bed in no distress. Respiratory system: Unlabored breathing, clear to auscultation anteriorly. Heart S1, S2. Regular rate and rhythm. Abdomen soft, no tenderness. Left knee did have some swelling, minimal redness, no drainage was noticed. LABS: Hemoglobin is 12.5, white count ( ), BUN of 33, creatinine 6.59. DIAGNOSTIC IMPRESSION AND PLAN: Patient with left knee cellulitis in this patient with recent left knee replacement and also subsequently did have MSSA bacteremia secondary to the PermCath which has been discontinued. The patient is covered with cefazolin status post aspirate of the left knee. Those will be followed. The patient is a hard stick with no easy accessible, will get a PICC line as long as it is cleared by Nephrology. Continue supportive care. MMODL / IJN: [id number] /
--- NOTE | 2021-01-15 13:32 | P.PN ---
Subjective Progress Note Date: 01/15/21 Principal diagnosis: Left knee cellulitis, history of left total knee arthroplasty, end-stage kidney disease Patient was evaluated today at bedside, she is resting in her hospital bed. She notes no acute changes in her symptoms. She still states she wants to go home at this time. I did discuss with nursing over the phone today regarding the patient. And having a hard time getting an IV, a PICC line order has been placed she will likely be receiving that today. Infectious disease is continuing IV antibiotics at this time. We are awaiting final culture results from the fluid that was obtained yesterday from the left knee. Initial cell count did demonstrate overall white blood cell count over 16,000 with PMNs that over 90%. Objective - Vital Signs Vital signs: Vital Signs Temp 98.0 F 01/15/21 12:28 Pulse 77 01/15/21 12:28 Resp 18 01/15/21 12:28 BP 121/78 01/15/21 12:28 Pulse Ox 99 01/15/21 12:28 Intake & Output 01/14/21 01/15/21 01/15/21 18:59 06:59 18:59 Intake Total 120 100 Output Total 2 Balance 118 100 Weight 79.4 kg Intake: Oral 120 100 Output: Urine/Stool Mix 2 Other: Voiding Method Bedpan Bedside Commode Bedside Commode External Catheter # Voids 1 2 1 # Bowel Movements 2 1 - Exam Left lower extremity: No obvious effusion present on the knee at this time There is erythema noted at the midline and distal and the incision. Incision remains well-healed at this time Flexion contracture still present, she is flexed at 90, she lacks about 20 of full extension when passively moving the knee Generalized tenderness with palpation over the anterior aspect of the knee near the area of erythema, difficult to assess due to mental state Calf is soft, no tenderness with palpation Plantar flexion, dorsiflexion, EHL, FHL are intact Dorsalis pedis pulses 2+, her sensory exam to light touch is intact throughout the extremity - Labs CBC & Chem 7: 01/15/21 07:35 01/15/21 07:35 Labs: Abnormal Lab Results - Last 24 Hours (Table) 01/15/21 01/15/21 Range/Units 07:35 07:35 RDW 17.6 H (11.5-15.5) % Neutrophils # 8.7 H (1.3-7.7) k/uL Lymphocytes # 0.8 L (1.0-4.8) k/uL Potassium 2.8 L (3.5-5.1) mmol/L BUN 33 H (7-17) mg/dL Creatinine 6.59 H (0.52-1.04) mg/dL Glucose 124 H (74-99) mg/dL Microbiology - Last 24 Hours (Table) 01/14/21 13:56 Gram Stain - Preliminary Knee - Left Wound Culture - Preliminary 01/14/21 13:56 Anaerobic Culture - Preliminary Knee - Left 01/14/21 13:56 Fungal Culture - Preliminary Knee - Left 01/11/21 16:16 Blood Culture - Preliminary Blood No Growth after 72 hours 01/11/21 16:07 Blood Culture - Preliminary Blood No Growth after 72 hours Assessment and Plan Assessment: Left knee cellulitis History of left total knee arthroplasty Possible left knee periprosthetic infection End-stage kidney disease Plan: I was able to discuss the case with my attending Dr. Sewell. Patient remains stable at this time. No emergent orthopedic surgical intervention at this time We will await final culture/sensitivity results. With the initial cell count from the fluid that was obtained it is concerning for deep infection Recommend continuation of IV antibiotics at this time Patient will be tentatively boarded for hardware removal with antibiotic spacer placement on 12/22/2020 Depending on placement, whether rehab or home with home health care and family help, patient may be discharged to home with PICC line and IV antibiotics. If this is unable to be achieved, would recommend patient to remain in hospital until surgery. Other medical specimen recommendations GI and DVT prophylaxis per primary medical service Further recommendations to follow Time with Patient: Less than 30
[2021-01-15] MEDS ORDERED: LIDOCAINE 1% INJ 10MG/ML (20 ML MDV) ONE (13:48)
[2021-01-15] MEDS ORDERED: LIDOCAINE 1% INJ 10MG/ML (20 ML MDV) SQ ONE (13:55)
--- NOTE | 2021-01-15 15:01 | IR ---
EXAMINATION TYPE: IR cvc insert >=5 years DATE OF EXAM: 01/15/2021 COMPARISON: NONE CLINICAL HISTORY: Infection Needs long-term intravenous access for antibiotics. PROCEDURE: Hand hygiene obtained with soap and water and alcohol-based hand rub. After informed consent, the skin overlying the right basilic vein was localized with ultrasound and n oted to be compressible and patent. An ultrasound image was obtained and submitted on the patient's chart. The overlying skin was prepped and draped and Lidocaine was used for local anesthesia. A ski n delfino was made with a scalpel. Access was gained to the vein under ultrasound guidance with a 21 ga uge needle and a 0.018 inch wire was advanced. Access site was dilated with Peel-Away sheath and cat heter tailored to the appropriate length and advanced such that the distal tip is at the cavoatrial j unction. Spot image was obtained verifying placement. Catheter was fixed to the skin and a sterile dressing was placed following hemostasis. Catheter was aspirated and flushed with saline. Patient w as discharged in stable condition without complication.Maximal barrier technique is utilized. Ultras ound image is documented on the chart. Ultrasound used with sterile technique. Fluoro time and fluoroscopic images submitted to document procedure: 0.3 minutes fluoroscopy time, 70 intraoperative images document the procedure IMPRESSION: STATUS POST ULTRASOUND AND FLUOROSCOPIC GUIDED PICC LINE PLACEMENT, READY FOR USE. THIS PROCEDURE WAS PERFORMED BY THE UNDERSIGNED.
[2021-01-15] MEDS: ALPRAZolam 0.25 MG TAB PO PRN (15:53)
[2021-01-15] MEDS: ATORVASTATIN 10 MG TAB PO SCH (19:38)
[2021-01-16] MEDS: DIALYSIS (PERIT 1.5%) 2,000 ML 30 G/2,000 ML BAG INTRAPERIT SCH ×3 (05:10→18:41)
[2021-01-16] MEDS: LEVOTHYROXINE 112 MCG TAB PO SCH (05:59)
[2021-01-16] MEDS: SEVELAMER 800 MG TAB PO SCH ×3 (05:59→17:30)
[2021-01-16 08:02] LABS: ALT <6 U/L (4-34); AST 20 U/L (14-36); African American GFR (CKD) 8 (>60 ml/min/1.73 sqM); Alkaline Phosphatase 93 U/L (38-126); Anion Gap 13 mmol/L; Blood Urea Nitrogen 29 mg/dL (7-17); Carbon Dioxide 22 mmol/L (22-30); Chloride 103 mmol/L (98-107); Glucose 130 mg/dL (74-99); Non-African American GFR(CKD) 7 (>60 ml/min/1.73 sqM); Potassium 3.9 mmol/L (3.5-5.1); Sodium 138 mmol/L (137-145); Total Bilirubin 0.1 mg/dL (0.2-1.3); Total Protein 6.6 g/dL (6.3-8.2)
[2021-01-16] MEDS: FUROSEMIDE 80 MG TAB PO SCH ×2 (08:25→20:19)
[2021-01-16] MEDS: allopurinoL 100 MG TAB PO SCH (08:25)
[2021-01-16] MEDS: HEPARIN SODIUM,PORCINE/PF 5,000 UNIT/0.5 ML SYRINGE SQ SCH ×2 (08:26→17:27)
--- NOTE | 2021-01-16 10:06 | P.PN ---
Subjective Progress Note Date: 01/15/21 Principal diagnosis: Possible left patellar bursitis. Patient is a 55-year-old female history of ESRD on peritoneal dialysis, hypertension, hyperlipidemia, hypothyroidism, developmentally delayed, degenerative joint disease and history of left knee arthroplasty in September 2020 and was subsequently treated for infection. Patient was brought to the ER due to increasing swelling and redness over the left knee joint. Patient is also more fatigued and weak than usual. No complaints of fever. Her caregiver is her mother. Patient was given a dose of ceftriaxone while in the ER. Laboratory data showed WBC 10.6 hemoglobin 12.1 and platelets 563 Sodium 134 potassium 6.0 BUN 44 and creatinine 7.97 CRP 4.1 and ESR 93. X-ray of the left knee Showed soft tissue swelling. No fracture. Swelling increased compared to old exam. 01/13/2021 Patient is currently resting in the bed. Awake alert and oriented times. Patient has high autism. Patient has been afebrile. Left patellar reason is still erythematous. Patient is able to flex her knee. Status knee aspiration Which was essentially. Orthopedic surgery is following. Patient has been afebrile. Tolerating oral diet. Continued on. Urinalysis. No commerce abdominal pain. No nausea vomiting or diarrhea. No chest pain or shortness breath. 01/14/2021 Patient is currently resting in the bed. No complaints of fever or chills. Still having left knee cellulitis with swelling and redness. Possible septic arthritis is being considered with history of recent MSSA bacteremia due to permacath infection. ID is following. Patient was seen by orthopedic surgery and left knee aspiration was done. Follow-up culture reports. Patient is being continued on antibiotics in the form of cefazolin. Denied any chest pain or shortness of breath. No nausea vomiting or abdominal pain or diarrhea. Tolerating oral diet. Patient is being continued on peritoneal dialysis otherwise. Laboratory data showed sodium 136 potassium 4.3 BUN 43 and creatinine 8.19 and blood sugar is 136 01/15/2021 Patient is currently resting in the bed. Still having left knee swelling and redness. Wound cultures growing presumptive staph aureus. Patient is being continued on antibiotics in the form of cefazolin. ID is following. Orthopedic surgery is on board. Patient has been afebrile. Tolerating oral diet. Denied any headache or dizzi ness or lightheadedness. Follow up final culture report. Cultures from left knee arthrocentesis pending. Current medications reviewed. Objective - Vital Signs Vital signs: Vital Signs Temp 98.3 F 01/15/21 18:06 Pulse 80 01/15/21 18:06 Resp 18 01/15/21 18:06 BP 108/69 01/15/21 18:06 Pulse Ox 95 01/15/21 18:06 Intake & Output 01/15/21 01/15/21 01/16/21 06:59 18:59 06:59 Intake Total 100 Output Total 100 Balance 100 -100 Weight 79.4 kg Intake: Oral 100 Output: Urine 100 Other: Voiding Method Bedside Commode Bedside Commode # Voids 2 3 # Bowel Movements 1 1 - Exam PHYSICAL EXAMINATION: Patient is lying in the bed comfortably, no acute distress, awake alert and oriented.. HEENT: Normocephalic. Neck is supple. Pupils reactive. Nostrils clear. Oral cavity is moist. Neck reveals no JVD, carotid bruits, or thyromegaly. CHEST EXAMINATION: Trachea is central. Symmetrical expansion. Lung oakley clear to auscultation and percussion. CARDIAC: Normal S1, S2 with no gallops. No murmurs ABDOMEN: Soft. Bowel sounds normal. No organomegaly. No abdominal bruits. Extremities: reveal no edema. No clubbing or cyanosis. Left knee infrapatellar and patella. Redness mild tenderness. Neurologically awake, alert, oriented x3 with well-coordinated movements. No focal deficits noted Skin: No rash or skin lesions. Psychiatric: Coperative. Nonsuicidal Musculoskeletal: No joint swelling or deformity. Normal range of motion. - Labs CBC & Chem 7: 01/15/21 07:35 01/16/21 07:06 Labs: Abnormal Lab Results - Last 24 Hours (Table) 01/15/21 01/15/21 Range/Units 07:35 07:35 RDW 17.6 H (11.5-15.5) % Neutrophils # 8.7 H (1.3-7.7) k/uL Lymphocytes # 0.8 L (1.0-4.8) k/uL Potassium 2.8 L (3.5-5.1) mmol/L BUN 33 H (7-17) mg/dL Creatinine 6.59 H (0.52-1.04) mg/dL Glucose 124 H (74-99) mg/dL Microbiology - Last 24 Hours (Table) 01/11/21 16:16 Blood Culture - Preliminary Blood No Growth after 96 hours 01/11/21 16:07 Blood Culture - Preliminary Blood No Growth after 96 hours 01/14/21 13:56 Gram Stain - Preliminary Knee - Left Wound Culture - Preliminary Presumptive Staph aureus 01/14/21 13:56 Anaerobic Culture - Preliminary Knee - Left 01/14/21 13:56 Fungal Culture - Preliminary Knee - Left Assessment and Plan Assessment: Left knee pain with redness likely suprapatellar bursitis with knee cellulitis. Suspected septic arthritis septic arthritis due to recent MSSA bacteremia. Elevated CRP and ESR levels. No leukocytosis. History of left total knee arthroplasty in September 2020 ESRD on peritoneal dialysis. Hypertension Hyperlipidemia Hypothyroidism Developmentally delayed Degenerative joint disease DVT prophylaxis with heparin subcu Plan: Patient was given antibiotics in the form of ceftriaxone in the ER. Patient was started on cefazolin. Status post left knee arthrocentesis.. Follow-up culture reports. Wound cultures growing presumptive staph aureus. Left knee aspiration was done by orthopedic surgery. ID is on board. Continue with warm compresses and continue with antibiotics.. Continue symptomatic management for pain. Follow-up blood cultures. Nephrology is on board and is currently getting peritoneal dialysis. We will continue to follow closely. PTOT will be consulted. Time with Patient: Greater than 30
--- NOTE | 2021-01-16 10:09 | P.PN ---
Subjective Progress Note Date: 01/16/21 Principal diagnosis: Left knee cellulitis, history of left total knee arthroplasty, end-stage kidney disease Patient was evaluated today at bedside, she is resting comfortably. Patient still associated ready to go home. Discussed with nursing, there is no acute events overnight. Had a long discussion with the family yesterday regarding current treatment plan. We are waiting for the final culture and sensitivity on the left knee aspiration. Most recent results are revealing presumptive staph aureus. Taking into consideration the initial cell count, this is a high likelihood for a deep infection of the knee. Patient does live at home with her mother who is a full-time caregiver. We discussed different options regarding placement. Patient's family would like to keep patient in the hospital if possible until the procedure. We discussed the possibility of having the patient discharged to home after procedure with home health care and help with family. This will be our tentative plan at this time. Objective - Vital Signs Vital signs: Vital Signs Temp 98.8 F 01/16/21 05:22 Pulse 75 01/16/21 05:22 Resp 18 01/16/21 05:22 BP 109/76 01/16/21 05:22 Pulse Ox 94 L 01/16/21 05:22 Intake & Output 01/15/21 01/16/21 01/16/21 18:59 06:59 18:59 Intake Total 100 Output Total 100 10 Balance 100 -100 -10 Weight 80 kg Intake: Oral 100 Output: Urine 100 10 Other: Voiding Method Bedside Commode Bedside Commode # Voids 3 # Bowel Movements 1 1 - Exam Left lower extremity: No obvious effusion present on the knee at this time There is erythema noted at the midline and distal and the incision. There is some fluctuance appreciated at the distal end of the incision. Incision remains well-healed at this time Flexion contracture still present, she is flexed at 90, she lacks about 20 of full extension when passively moving the knee Generalized tenderness with palpation over the anterior aspect of the knee near the area of erythema, difficult to assess due to mental state Calf is soft, no tenderness with palpation Plantar flexion, dorsiflexion, EHL, FHL are intact Dorsalis pedis pulses 2+, her sensory exam to light touch is intact throughout the extremity - Labs CBC & Chem 7: 01/15/21 07:35 01/16/21 07:06 Labs: Abnormal Lab Results - Last 24 Hours (Table) 01/16/21 Range/Units 07:06 BUN 29 H (7-17) mg/dL Creatinine 6.08 H (0.52-1.04) mg/dL Glucose 130 H (74-99) mg/dL Total Bilirubin 0.1 L (0.2-1.3) mg/dL Albumin 3.0 L (3.5-5.0) g/dL Microbiology - Last 24 Hours (Table) 01/11/21 16:16 Blood Culture - Preliminary Blood No Growth after 96 hours 01/11/21 16:07 Blood Culture - Preliminary Blood No Growth after 96 hours 01/14/21 13:56 Gram Stain - Preliminary Knee - Left Wound Culture - Preliminary Presumptive Staph aureus Assessment and Plan Assessment: Left knee cellulitis History of left total knee arthroplasty Likely left knee periprosthetic infection End-stage kidney disease Plan: At this time patient will be tentatively boarded for hardware removal with antibiotic spacer placement of the left knee on 01/22/2021. She remains medically stable at this time We will await final culture/sensitivity results Recommend continuation of IV antibiotics at this time Would prefer to keep patient in hospital to continue medical treatment in anticipation for surgery on 01/22/2021 Other medical specimen recommendations GI and DVT prophylaxis per primary medical service We will continue to follow during inpatient stay Time with Patient: Less than 30
--- NOTE | 2021-01-16 12:12 | PN ---
PROGRESS NOTE Patient is seen for followup for end-stage renal disease. The patient is currently lying in bed. She is comfortable. Denies any significant complaints. She is maintained on peritoneal dialysis, which she is tolerating well. On examination, blood pressure 109/76, heart rate 75 per minute. Patient is afebrile. EXAMINATION OF THE HEART: S1 and S2. EXAMINATION OF LUNGS: Bilateral breath sounds are heard. ABDOMEN: Soft, nontender. LOWER EXTREMITIES: Examination of lower extremities shows no significant edema. ARTIFICIAL P[employer]ER EXAM: Grossly intact. Labs show sodium 138, potassium 3.9, hemoglobin 12.5 g/dL. ASSESSMENT: 1. End-stage renal disease, on peritoneal dialysis. Continue current PD exchanges. 2. Left knee infection, maintained on antibiotics. Being considered for PICC line placement. Wound cultures growing presumptive Staph aureus. 3. Chronic kidney disease mineral bone disorder. 4. History of developmental delay. Mentation at baseline. PLAN: Continue current PD exchanges. MMODL / IJN: [id number] /
[2021-01-16] MEDS: ATORVASTATIN 10 MG TAB PO SCH (20:19)
--- NOTE | 2021-01-16 23:10 | PN ---
PROGRESS NOTE DATE OF SERVICE: 01/16/2021 REASON FOR FOLLOWUP: Left knee cellulitis and concern for septic arthritis. INTERVAL HISTORY: The patient is afebrile. The patient is breathing comfortably. No chest pain, shortness of breath or cough. No abdominal pain or worsening pain to the left knee. PHYSICAL EXAMINATION: Blood pressure 137/76, pulse of 77, temperature 97.9. She is 98% on room air. GENERAL DESCRIPTION: General description is a middle-aged female lying in bed in no distress. RESPIRATORY SYSTEM: Unlabored breathing. Clear to auscultation anteriorly. HEART: S1, S2. Regular rate and rhythm. ABDOMEN: Soft. No tenderness. Left knee swelling and redness have decreased. LABS: BUN of 29. Creatinine is 6.08. Left knee culture scan positive for MSSA. DIAGNOSTIC IMPRESSION AND PLAN: Patient with left knee cellulitis and concern for possible septic arthritis. Culture positive for MSSA. Continue with cefazolin. Will benefit from further debridement or oxygen and possible two-stage procedure for excision of arthroplasty and antibiotic spacer placement concerning for the left knee infection. Will discuss further with . Continue cefazolin and monitor clinical course closely. MMODL / IJN: [id number] /
--- NOTE | 2021-01-16 23:34 | P.PN ---
Subjective Progress Note Date: 01/16/21 Principal diagnosis: Possible left patellar bursitis. Patient is a 55-year-old female history of ESRD on peritoneal dialysis, hypertension, hyperlipidemia, hypothyroidism, developmentally delayed, degenerative joint disease and history of left knee arthroplasty in September 2020 and was subsequently treated for infection. Patient was brought to the ER due to increasing swelling and redness over the left knee joint. Patient is also more fatigued and weak than usual. No complaints of fever. Her caregiver is her mother. Patient was given a dose of ceftriaxone while in the ER. Laboratory data showed WBC 10.6 hemoglobin 12.1 and platelets 563 Sodium 134 potassium 6.0 BUN 44 and creatinine 7.97 CRP 4.1 and ESR 93. X-ray of the left knee Showed soft tissue swelling. No fracture. Swelling increased compared to old exam. 01/13/2021 Patient is currently resting in the bed. Awake alert and oriented times. Patient has high autism. Patient has been afebrile. Left patellar reason is still erythematous. Patient is able to flex her knee. Status knee aspiration Which was essentially. Orthopedic surgery is following. Patient has been afebrile. Tolerating oral diet. Continued on. Urinalysis. No commerce abdominal pain. No nausea vomiting or diarrhea. No chest pain or shortness breath. 01/14/2021 Patient is currently resting in the bed. No complaints of fever or chills. Still having left knee cellulitis with swelling and redness. Possible septic arthritis is being considered with history of recent MSSA bacteremia due to permacath infection. ID is following. Patient was seen by orthopedic surgery and left knee aspiration was done. Follow-up culture reports. Patient is being continued on antibiotics in the form of cefazolin. Denied any chest pain or shortness of breath. No nausea vomiting or abdominal pain or diarrhea. Tolerating oral diet. Patient is being continued on peritoneal dialysis otherwise. Laboratory data showed sodium 136 potassium 4.3 BUN 43 and creatinine 8.19 and blood sugar is 136 01/15/2021 Patient is currently resting in the bed. Still having left knee swelling and redness. Wound cultures growing presumptive staph aureus. Patient is being continued on antibiotics in the form of cefazolin. ID is following. Orthopedic surgery is on board. Patient has been afebrile. Tolerating oral diet. Denied any headache or dizzi ness or lightheadedness. Follow up final culture report. Cultures from left knee arthrocentesis pending. 01/16/2021 Patient is currently lying in the bed comfortably. Awake alert orient x3. Left knee swelling is better compared to yesterday. No complaints of fever or chills. Wound cultures showed MSSA. Currently being current cefazolin. ID is on board. Otherwise patient is getting peritoneal dialysis. No nausea vomiting abdominal pain or diarrhea. Tolerating oral diet. Final antibiotic recommendations as per ID evaluation. Current medications reviewed. Objective - Vital Signs Vital signs: Vital Signs Temp 97.9 F 01/16/21 19:52 Pulse 77 01/16/21 20:00 Resp 17 01/16/21 20:00 BP 137/76 01/16/21 19:52 Pulse Ox 98 01/16/21 19:52 Intake & Output 01/16/21 01/16/21 01/17/21 06:59 18:59 06:59 Intake Total 520 Output Total 100 60 200 Balance -100 460 -200 Weight 80 kg Intake: Oral 520 Output: Urine 100 10 200 Stool 50 Other: Voiding Method Bedside Commode Bedside Commode Bedside Commode Bedpan # Voids 1 # Bowel Movements 1 1 - Exam PHYSICAL EXAMINATION: Patient is lying in the bed comfortably, no acute distress, awake alert and oriented.. HEENT: Normocephalic. Neck is supple. Pupils reactive. Nostrils clear. Oral cavity is moist. Neck reveals no JVD, carotid bruits, or thyromegaly. CHEST EXAMINATION: Trachea is central. Symmetrical expansion. Lung oakley clear to auscultation and percussion. CARDIAC: Normal S1, S2 with no gallops. No murmurs ABDOMEN: Soft. Bowel sounds normal. No organomegaly. No abdominal bruits. Extremities: reveal no edema. No clubbing or cyanosis. Left knee infrapatellar and patella. Redness mild tenderness. Neurologically awake, alert, oriented x3 with well-coordinated movements. No focal deficits noted Skin: No rash or skin lesions. Psychiatric: Coperative. Nonsuicidal Musculoskeletal: No joint swelling or deformity. Normal range of motion. - Labs CBC & Chem 7: 01/15/21 07:35 01/16/21 07:06 Labs: Abnormal Lab Results - Last 24 Hours (Table) 01/16/21 Range/Units 07:06 BUN 29 H (7-17) mg/dL Creatinine 6.08 H (0.52-1.04) mg/dL Glucose 130 H (74-99) mg/dL Total Bilirubin 0.1 L (0.2-1.3) mg/dL Albumin 3.0 L (3.5-5.0) g/dL Microbiology - Last 24 Hours (Table) 01/11/21 16:16 Blood Culture - Preliminary Blood No Growth after 120 hours 01/11/21 16:07 Blood Culture - Preliminary Blood No Growth after 120 hours 01/14/21 13:56 Anaerobic Culture - Preliminary Knee - Left 01/14/21 13:56 Gram Stain - Final Knee - Left Wound Culture - Final Staphylococcus aureus Assessment and Plan Assessment: Left knee pain with redness likely suprapatellar bursitis with knee cellulitis. Suspected septic arthritis septic arthritis due to recent MSSA bacteremia. Elevated CRP and ESR levels. No leukocytosis. History of left total knee arthroplasty in September 2020 ESRD on peritoneal dialysis. Hypertension Hyperlipidemia Hypothyroidism Developmentally delayed Degenerative joint disease DVT prophylaxis with heparin subcu Plan: Patient was given antibiotics in the form of ceftriaxone in the ER. Patient was started on cefazolin. Status post left knee arthrocentesis.. . Wound cultures growing MS staph aureus. Left knee aspiration was done by orthopedic surgery. ID is on board. Continue with warm compresses and continue with antibiotics.. Continue symptomatic management for pain. Follow-up blood cultures. Nephrology is on board and is currently getting peritoneal dialysis. We will continue to follow closely. PTOT will be consulted.
[2021-01-17] MEDS: HEPARIN SODIUM,PORCINE/PF 5,000 UNIT/0.5 ML SYRINGE SQ SCH ×3 (00:08→16:48)
[2021-01-17] MEDS: DIALYSIS (PERIT 1.5%) 2,000 ML 30 G/2,000 ML BAG INTRAPERIT SCH ×4 (00:08→18:18)
[2021-01-17] MEDS: LEVOTHYROXINE 112 MCG TAB PO SCH (06:29)
[2021-01-17] MEDS: SEVELAMER 800 MG TAB PO SCH ×3 (06:29→16:48)
[2021-01-17 08:02] LABS: Calcium 9.5 mg/dL (8.4-10.2); Potassium 3.5 mmol/L (3.5-5.1)
[2021-01-17 08:15] LABS: Anisocytosis Slight; Basophils % (A) 0 %; Eosinophils # (A) 0.1 k/uL (0-0.7); Eosinophils % (A) 1 %; HCT 38.7 % (34.0-46.0); HGB 11.9 gm/dL (11.4-16.0); Hypochromasia Marked; Lymphocytes # (A) 1.4 k/uL (1.0-4.8); Lymphocytes % (A) 16 %; MCH 30.1 pg (25.0-35.0); MCHC 30.6 g/dL (31.0-37.0); MCV 98.4 fL (80.0-100.0); Macrocytosis Slight; Mean Platelet Volume 8.1; Monocytes # (A) 0.7 k/uL (0-1.0); Monocytes % (A) 8 %; Neutrophils # (A) 6.3 k/uL (1.3-7.7); Neutrophils % (A) 72 %; Platelet Count 436 k/uL (150-450); RBC 3.94 m/uL (3.80-5.40); WBC 8.8 k/uL (3.8-10.6)
[2021-01-17] MEDS: allopurinoL 100 MG TAB PO SCH (10:38)
[2021-01-17] MEDS: FUROSEMIDE 80 MG TAB PO SCH (10:39)
[2021-01-17 11:22] VITALS: BMI 35.1
[2021-01-17] MEDS ORDERED: POTASSIUM CHLORIDE ER 20 MEQ TAB.ER PO STA (11:36)
--- NOTE | 2021-01-17 12:15 | PN ---
PROGRESS NOTE Patient is seen for followup for end-stage renal disease. She is currently maintained on peritoneal dialysis. No issues with dialysis. Plan is for orthopedic surgery next week with removal of hardware. No complaints today. On physical examination, blood pressure is 131/80, heart rate 86 per minute. Patient is afebrile. EXAMINATION OF THE HEART: S1 and S2. EXAMINATION OF LUNGS: Bilateral breath sounds are heard. ABDOMEN: Soft, nontender. LOWER EXTREMITIES: Examination of lower extremities shows no significant edema. Labs show sodium 137, potassium 3.5, hemoglobin 11.9 g/dL. ASSESSMENT: 1. End-stage renal disease, on peritoneal dialysis. Continue with current PD exchanges. 2. Chronic kidney disease mineral bone disorder. 3. Hypokalemia, status post replacement. 4. Status post left knee arthroplasty with cellulitis and septic arthritis, maintained on antibiotics. Wound cultures remain positive for Staph aureus. PLAN: Plan is for removal of hardware and antibiotic spacer placement. Plan is potassium supplementation today. Continue current PD exchanges. MMODL / IJN: [id number] /
--- NOTE | 2021-01-17 13:45 | P.PN ---
Subjective Progress Note Date: 01/17/21 Principal diagnosis: Left knee cellulitis, history of left total knee arthroplasty, end-stage kidney disease Patient was evaluated today at bedside, she is resting comfortably. Discussed with nursing, there is no acute events overnight. Patient's family was present at bedside, she notes changes at the distal end of the incision, she states it does look a little worse than yesterday. Cultures of the left knee aspiration haven't finalized and demonstrating staph aureus. P atient's vitals remain stable. Objective - Vital Signs Vital signs: Vital Signs Temp 98.0 F 01/17/21 09:18 Pulse 82 01/17/21 09:18 Resp 16 01/17/21 09:18 BP 132/84 01/17/21 09:18 Pulse Ox 97 01/17/21 08:25 Intake & Output 01/16/21 01/17/21 01/17/21 18:59 06:59 18:59 Intake Total 520 Output Total 60 300 Balance 460 -300 Weight 81.5 kg 81.5 kg Intake: Oral 520 Output: Urine 10 300 Stool 50 Other: Voiding Method Bedside Commode Bedside Commode Bedside Commode Bedpan Bedpan # Voids 3 # Bowel Movements 1 - Exam Left lower extremity: No obvious effusion present on the knee at this time There is erythema noted at the midline and distal and the incision. The fluctuance that was present at the prepatellar region of the distal incision has worsened, there is notable color change discoloration. Patient also demonstrates tenderness with palpation in that area. No open lesions are appreciated in that area, there is no obvious drainage Flexion contracture still present, she is flexed at 90, she lacks about 20 of full extension when passively moving the knee Generalized tenderness with palpation over the anterior aspect of the knee near the area of erythema, difficult to assess due to mental state Calf is soft, no tenderness with palpation Plantar flexion, dorsiflexion, EHL, FHL are intact Dorsalis pedis pulses 2+, her sensory exam to light touch is intact throughout the extremity - Labs CBC & Chem 7: 01/17/21 07:06 01/17/21 07:06 Labs: Abnormal Lab Results - Last 24 Hours (Table) 01/17/21 01/17/21 Range/Units 07:06 07:06 MCHC 30.6 L (31.0-37.0) g/dL RDW 18.0 H (11.5-15.5) % BUN 28 H (7-17) mg/dL Creatinine 5.55 H (0.52-1.04) mg/dL Glucose 116 H (74-99) mg/dL Microbiology - Last 24 Hours (Table) 01/11/21 16:16 Blood Culture - Preliminary Blood No Growth after 120 hours 01/11/21 16:07 Blood Culture - Preliminary Blood No Growth after 120 hours 01/14/21 13:56 Anaerobic Culture - Preliminary Knee - Left 01/14/21 13:56 Gram Stain - Final Knee - Left Wound Culture - Final Staphylococcus aureus Assessment and Plan Assessment: Left knee cellulitis History of left total knee arthroplasty Left knee periprosthetic infection End-stage kidney disease Plan: Final cultures have been reviewed, they are demonstrating staph aureus. Patient has remained on IV antibiotics since admission. Initially the knee remained very benign, there was generalized erythema. Symptoms seem to have worsened overnight, there are obvious skin changes with worsening fluctuance likely representing abscess formation in that area. There is no lubna skin breakdown at this time, but I anticipate this is eminent. I do not feel waiting 5 days for surgery is the optimal treatment option at this time. I discussed with the patient's family today at bedside we do recommend transfer to a tertiary care facility for further treatment, more specifically [facility]. Dr. Sewell is unavailable at this time for surgical intervention. I discussed the case with internal medicine and case management regarding transferring patient a tertiary care facility, the process has been started. I will continue to try contact the patients mother regarding our current treatment plan and recommendations Time with Patient: Less than 30
--- NOTE | 2021-01-17 16:47 | PN ---
PROGRESS NOTE DATE OF SERVICE: 01/17/2021 REASON FOR FOLLOWUP: Left knee septic arthritis, MSSA. INTERVAL HISTORY: The patient is afebrile. The patient is currently breathing comfortably. Denies any worsening pain to the left knee. Wants to go home. No chest pain, shortness of breath or cough. No abdominal pain or diarrhea. PHYSICAL EXAMINATION: Blood pressure 148/86, pulse of 95, temperature 98.6. She is 98% on room air. GENERAL DESCRIPTION: General description is a middle-aged female lying in bed in no distress. RESPIRATORY SYSTEM: Unlabored breathing. Clear to auscultation anteriorly. HEART: S1, S2. Regular rate and rhythm. ABDOMEN: Soft. No tenderness. Left knee is currently swollen. Redness has slightly decreased. LABS: Hemoglobin is 11.9, white count 8.9. BUN of 28, creatinine 5.55. DIAGNOSTIC IMPRESSION AND PLAN: Patient with left knee septic arthritis. Orthopedics is on the case. Monitor the patient. To be transferred to tertiary care, as the patient needs surgery and antibiotic spacer cefazolin and monitor clinical course closely. MMODL / IJN: [id number] /
[2021-01-17 17:00] VITALS: BP 130/75; PULSE 94; RESP 18; TEMP 98.5
[2021-01-17] MEDS: ALPRAZolam 0.25 MG TAB PO PRN (18:41)
== END 2021-01-17 20:20 | disposition short-term general hospital (02) | DRG 559 ==
LOC: EC 14:34 → 3SCARD 17:02 → 3NCARDOBS 01-15 00:06 → 3SCARD 01-15 00:06 → 3NCARDOBS 01-15 05:41 → 3SCARD 01-15 05:41
PROVIDERS: ADMIT Internal Medicine; ATTEND Internal Medicine
PROC: 0SJD3ZZ Inspection of Left Knee Joint, Percutaneous Approach (ICD-10-PCS; 2021-01-12)
PROC: 3E1M39Z Irrigation of Peritoneal Cavity using Dialysate, Percutaneous Approach (ICD-10-PCS; 2021-01-12)
PROC: 0S9D3ZX Drainage of Left Knee Joint, Percutaneous Approach, Diagnostic (ICD-10-PCS; principal; 2021-01-14)
PROC: 02HV33Z Insertion of Infusion Device into Superior Vena Cava, Percutaneous Approach (ICD-10-PCS; 2021-01-15)
DX: T84.54XA Infection and inflammatory reaction due to internal left knee prosthesis, initial encounter (principal); N18.6 End stage renal disease; M31.1 Thrombotic microangiopathy; I12.0 Hypertensive chronic kidney disease with stage 5 chronic kidney disease or end stage renal disease; M00.062 Staphylococcal arthritis, left knee; F84.0 Autistic disorder; G93.40 Encephalopathy, unspecified; L03.116 Cellulitis of left lower limb; I95.9 Hypotension, unspecified; E83.9 Disorder of mineral metabolism, unspecified; Z99.2 Dependence on renal dialysis; Z20.822 Contact with and (suspected) exposure to COVID-19; E87.5 Hyperkalemia; E87.6 Hypokalemia; E83.52 Hypercalcemia; B95.61 Methicillin susceptible Staphylococcus aureus infection as the cause of diseases classified elsewhere; E03.9 Hypothyroidism, unspecified; E78.5 Hyperlipidemia, unspecified; M19.90 Unspecified osteoarthritis, unspecified site; F89 Unspecified disorder of psychological development; Z79.890 Hormone replacement therapy; Z79.899 Other long term (current) drug therapy; Z86.2 Personal history of diseases of the blood and blood-forming organs and certain disorders involving the immune mechanism; Z86.69 Personal history of other diseases of the nervous system and sense organs; Z87.81 Personal history of (healed) traumatic fracture; Z86.19 Personal history of other infectious and parasitic diseases; Z98.890 Other specified postprocedural states; Z88.8 Allergy status to other drugs, medicaments and biological substances; Y83.1 Surgical operation with implant of artificial internal device as the cause of abnormal reaction of the patient, or of later complication, without mention of misadventure at the time of the procedure; Y92.009 Unspecified place in unspecified non-institutional (private) residence as the place of occurrence of the external cause; Z80.0 Family history of malignant neoplasm of digestive organs; Z83.49 Family history of other endocrine, nutritional and metabolic diseases; Z82.49 Family history of ischemic heart disease and other diseases of the circulatory system; Z80.8 Family history of malignant neoplasm of other organs or systems; Z82.61 Family history of arthritis
CPT/HCPCS: 36415; 36573; 80048; 80053; 83605; 83735; 84132; 85025; 85610; 85652; 85730; 86140; 87040; 87070; 87075; 87077; 87102; 87186; 87205; 87635; 89050; 89060; 93005; 94640; 99285

== ENCOUNTER 2021-05-25 14:43 | Inpatient (IN) | payer MEDICARE, OTHER ==
[2021-05-25] MEDS ORDERED: SODIUM CHLORIDE 0.9% 1,000 ML IV STA (15:23)
--- NOTE | 2021-05-25 15:27 | ED ---
General Adult HPI - General Chief complaint: Altered Mental Status Stated complaint: hypotension Time Seen by Provider: 05/25/21 14:53 Source: family, EMS, RN notes reviewed Mode of arrival: EMS Limitations: altered mental status (Ilia is a poor historian. Family is present who does provide history appropriately) - History of Present Illness Initial comments: Patient is a pleasant 56-year-old female presenting to the emergency Department with mother with concerns for decreased oral intake. Patient has always been a bad heater however has had a couple episodes of vomiting and decreased fluid intake over the past week or more. Patient did go to [facility] however they were unable to draw labs. Patient has had some intermittent c onstipation and diarrhea. No fevers. Patient was recently in rehab recovering from knee infection however has been home for the past 2-3 weeks with family. Blood pressure this morning was lower than normal at 84. - Related Data Home Medications Medication Instructions Recorded Confirmed Levothyroxine Sodium [Synthroid] 112 mcg PO DAILY@0600 01/10/20 01/11/21 Ferrous Sulfate [Iron (65 MG 325 mg PO DAILY 09/13/20 01/11/21 Elemental)] Potassium Chloride [Klor-Con 10 ER] 10 meq PO DAILY 09/13/20 01/11/21 allopurinoL [Zyloprim] 100 mg PO DAILY@0800 10/16/20 01/11/21 Atorvastatin [Lipitor] 10 mg PO HS@2100 10/31/20 01/11/21 Furosemide [Lasix] 80 mg PO BID 01/11/21 01/11/21 Sevelamer [Renvela] 1,600 mg PO TID-W/MEALS 01/11/21 01/11/21 Allergies Allergy/AdvReac Type Severity Reaction Status Date / Time lisinopril Allergy Unknown Verified 05/25/21 15:12 Review of Systems ROS Statement: Those systems with pertinent positive or pertinent negative responses have been documented in the HPI. ROS Other: All systems not noted in ROS Statement are negative. Constitutional: Denies: fever Respiratory: Denies: cough, dyspnea Endocrine: Reports: fatigue Gastrointestinal: Reports: as per HPI, vomiting Genitourinary: Denies: dysuria Musculoskeletal: Denies: arthralgia Skin: Denies: rash Past Medical History Past Medical History: Hyperlipidemia, Hypertension, Renal Disease, Thyroid Disorder Additional Past Medical History / Comment(s): developmentally delayed, ESRD with nightly peritoneal dialysis, anemia, mineral bone disease, reverse deep palate/ some speech issues, swelling legs and ankles, hx of fx rt leg, hypothyroid, degenerative joint disease. History of Any Multi-Drug Resistant Organisms: None Reported Past Surgical History: Ear Surgery, Joint Replacement Additional Past Surgical History / Comment(s): 09/25/20 total L knee arthroplasty, 09/30/20 permacath R chest, 01/13/20 peritoneal dialysis catheter, septoplasty, bilateral myringotomy/tubes, oral surgery, Past Anesthesia/Blood Transfusion Reactions: Family History of Problems w/ Anesthesia Additional Past Anesthesia/Blood Transfusion Reaction / Comment(s): mom-ponv Past Psychological History: No Psychological Hx Reported Smoking Status: Never smoker Past Alcohol Use History: None Reported Past Drug Use History: None Reported - Past Family History Father Family Medical History: Cancer Additional Family Medical History / Comment(s): Father of esophageal cancer. Mother Family Medical History: Cancer, Hyperlipidemia, Hypertension, Osteoarthritis (OA) Additional Family Medical History / Comment(s): Tip of R index finger cancer/amputated. General Exam Limitations: altered mental status General appearance: alert, in no apparent distress Head exam: Present: atraumatic Eye exam: Present: normal appearance ENT exam: Present: mucous membranes dry Neck exam: Present: normal inspection Respiratory exam: Present: normal lung sounds bilaterally Cardiovascular Exam: Present: regular rate, normal rhythm GI/Abdominal exam: Present: soft. Absent: tenderness Extremities exam: Present: normal inspection, other (Left knee incision clean and dry and intact. No erythema or swelling. No warmth.) Neurological exam: Present: alert Psychiatric exam: Present: normal affect, normal mood Skin exam: Present: normal color. Absent: erythema Course Vital Signs 05/25/21 14:59 Temperature 98.6 F Pulse Rate 97 Respiratory 18 Rate Blood Pressure 89/61 O2 Sat by Pulse 96 Oximetry EKG Findings - EKG Comments: EKG Findings:: Normal sinus rhythm with rate of 100. VA 138. QRS 94. QT 398. QTC 513. Normal axis. Incomplete right bundle-branch block. Nonspecific T waves. Medical Decision Making - Medical Decision Making Patient reevaluated. Patient and family updated. Case discussed with Dr. Christina, who will admit covering for Dr. pitt. - Lab Data Result diagrams: 05/25/21 15:52 05/25/21 16:18 Lab Results 05/25/21 05/25/21 05/25/21 Range/Units 15:52 15:52 15:52 WBC 14.2 H (3.8-10.6) k/uL RBC 3.98 (3.80-5.40) m/uL Hgb 12.5 (11.4-16.0) gm/dL Hct 40.9 (34.0-46.0) % MCV 102.9 H (80.0-100.0) fL MCH 31.5 (25.0-35.0) pg MCHC 30.6 L (31.0-37.0) g/dL RDW 17.3 H (11.5-15.5) % Plt Count 320 (150-450) k/uL MPV 9.2 Neutrophils % 84 % Lymphocytes % 10 % Monocytes % 5 % Eosinophils % 0 % Basophils % 0 % Neutrophils # 11.9 H (1.3-7.7) k/uL Lymphocytes # 1.5 (1.0-4.8) k/uL Monocytes # 0.6 (0-1.0) k/uL Eosinophils # 0.0 (0-0.7) k/uL Basophils # 0.0 (0-0.2) k/uL Hypochromasia Moderate Anisocytosis Slight Macrocytosis Moderate PT 10.5 (9.0-12.0) sec INR 1.0 (<1.2) APTT 22.0 (22.0-30.0) sec Sodium (137-145) mmol/L Potassium (3.5-5.1) mmol/L Chloride (98-107) mmol/L Carbon Dioxide (22-30) mmol/L Anion Gap mmol/L BUN (7-17) mg/dL Creatinine (0.52-1.04) mg/dL Est GFR (CKD-EPI)AfAm (>60 ml/min/1.73 sqM) Est GFR (CKD-EPI)NonAf (>60 ml/min/1.73 sqM) Glucose (74-99) mg/dL Plasma Lactic Acid David 2.7 H* (0.7-2.0) mmol/L Calcium (8.4-10.2) mg/dL Magnesium (1.6-2.3) mg/dL Total Bilirubin (0.2-1.3) mg/dL AST (14-36) U/L ALT (4-34) U/L Alkaline Phosphatase (38-126) U/L Troponin I (0.000-0.034) ng/mL Total Protein (6.3-8.2) g/dL Albumin (3.5-5.0) g/dL Coronavirus (PCR) (Not Detectd) 05/25/21 05/25/21 05/25/21 Range/Units 16:05 16:18 16:18 WBC (3.8-10.6) k/uL RBC (3.80-5.40) m/uL Hgb (11.4-16.0) gm/dL Hct (34.0-46.0) % MCV (80.0-100.0) fL MCH (25.0-35.0) pg MCHC (31.0-37.0) g/dL RDW (11.5-15.5) % Plt Count (150-450) k/uL MPV Neutrophils % % Lymphocytes % % Monocytes % % Eosinophils % % Basophils % % Neutrophils # (1.3-7.7) k/uL Lymphocytes # (1.0-4.8) k/uL Monocytes # (0-1.0) k/uL Eosinophils # (0-0.7) k/uL Basophils # (0-0.2) k/uL Hypochromasia Anisocytosis Macrocytosis PT (9.0-12.0) sec INR (<1.2) APTT (22.0-30.0) sec Sodium 131 L (137-145) mmol/L Potassium 2.1 L* (3.5-5.1) mmol/L Chloride 97 L (98-107) mmol/L Carbon Dioxide 25 (22-30) mmol/L Anion Gap 9 mmol/L BUN 41 H (7-17) mg/dL Creatinine 4.75 H (0.52-1.04) mg/dL Est GFR (CKD-EPI)AfAm 11 (>60 ml/min/1.73 sqM) Est GFR (CKD-EPI)NonAf 10 (>60 ml/min/1.73 sqM) Glucose 123 H (74-99) mg/dL Plasma Lactic Acid David (0.7-2.0) mmol/L Calcium 8.9 (8.4-10.2) mg/dL Magnesium 2.1 (1.6-2.3) mg/dL Total Bilirubin 0.5 (0.2-1.3) mg/dL AST 84 H (14-36) U/L ALT 62 H (4-34) U/L Alkaline Phosphatase 180 H (38-126) U/L Troponin I 0.161 H* (0.000-0.034) ng/mL Total Protein 4.7 L (6.3-8.2) g/dL Albumin 1.9 L (3.5-5.0) g/dL Coronavirus (PCR) Not Detected (Not Detectd) - Radiology Data Radiology results: image reviewed (Chest x-ray shows atelectasis) Disposition Clinical Impression: Dehydration, Hypokalemia Disposition: ADMITTED IP TO THIS [facility] Condition: Serious Is patient prescribed a controlled substance at d/c from ED?: No Referrals: None,Stated [REFERRING] - 1-2 days Decision Time: 17:19
[2021-05-25 16:11] LABS: Prothrombin Time 10.5 sec (9.0-12.0)
[2021-05-25 16:19] LABS: Anisocytosis Slight; Basophils % (A) 0 %; Eosinophils % (A) 0 %; HCT 40.9 % (34.0-46.0); HGB 12.5 gm/dL (11.4-16.0); Hypochromasia Moderate; Lymphocytes # (A) 1.5 k/uL (1.0-4.8); Lymphocytes % (A) 10 %; MCH 31.5 pg (25.0-35.0); MCHC 30.6 g/dL (31.0-37.0); MCV 102.9 fL (80.0-100.0); Macrocytosis Moderate; Mean Platelet Volume 9.2; Monocytes # (A) 0.6 k/uL (0-1.0); Monocytes % (A) 5 %; Neutrophils # (A) 11.9 k/uL (1.3-7.7); Neutrophils % (A) 84 %; Platelet Count 320 k/uL (150-450); RBC 3.98 m/uL (3.80-5.40); RDW 17.3 % (11.5-15.5); WBC 14.2 k/uL (3.8-10.6)
[2021-05-25 16:37] LABS: Albumin 1.9 g/dL (3.5-5.0); Calcium 8.9 mg/dL (8.4-10.2); Magnesium 2.1 mg/dL (1.6-2.3); Total Bilirubin 0.5 mg/dL (0.2-1.3); Total Protein 4.7 g/dL (6.3-8.2)
--- NOTE | 2021-05-25 16:39 | XR ---
EXAMINATION TYPE: XR chest 1V portable DATE OF EXAM: 05/25/2021 COMPARISON: 10/23/2020 HISTORY: Weakness TECHNIQUE: Single view FINDINGS: There is subsegmental atelectasis in the midlung oakley. Heart size is normal. There are no hilar masses. Bony thorax is intact. IMPRESSION: Subsegmental atelectasis improved compared to last exam. Normal heart.
[2021-05-25 16:45] LABS: Potassium 2.1 mmol/L (3.5-5.1)
[2021-05-25] MEDS ORDERED: POTASSIUM BICARBONATE/CIT AC 20 MEQ TABLET.EFF PO ONE (16:56)
[2021-05-25] MEDS ORDERED: POTASSIUM CHLORIDE 20 MEQ in WATER FOR INJECTION 1 100ML.BAG IVPB ONE (17:00)
[2021-05-25] MEDS: 0.9% NACL WITH KCL 20 MEQ/L 1,000 ML IV SCH (18:42)
[2021-05-25] MEDS ORDERED: ONDANSETRON ODT 8 MG TAB.RAPDIS PO PRN (20:18)
[2021-05-25] MEDS ORDERED: EPOETIN ALFA 20000 UNIT/ML SQ SCH (20:30)
[2021-05-25] MEDS: SERTRALINE 25 MG TAB PO SCH (20:41)
[2021-05-25] MEDS: ATORVASTATIN 10 MG TAB PO SCH (20:41)
[2021-05-25 20:45] LABS: Calcium 9.1 mg/dL (8.4-10.2); Potassium 4.4 mmol/L (3.5-5.1)
[2021-05-26] MEDS ORDERED: MIDODRINE 5 MG TAB PO ONE (01:15)
[2021-05-26] MEDS: DIALYSIS (PERIT 1.5%) 2,000 ML 30 G/2,000 ML BAG INTRAPERIT SCH ×4 (02:19→16:28)
[2021-05-26] MEDS: 0.9% NACL WITH KCL 20 MEQ/L 1,000 ML IV SCH ×2 (06:34→08:58)
[2021-05-26] MEDS: SEVELAMER 800 MG TAB PO SCH ×3 (06:47→16:58)
[2021-05-26] MEDS: MIDODRINE 5 MG TAB PO SCH ×3 (06:47→16:55)
[2021-05-26] MEDS: LEVOTHYROXINE 112 MCG TAB PO SCH (06:47)
[2021-05-26] MEDS ORDERED: NON FORMULARY DRUG (Midodrine Hcl [Proamatine] 10 MG Tablet) PO SCH (07:30)
[2021-05-26] MEDS: MAGNESIUM OXIDE 400 MG TAB PO SCH ×2 (09:34→10:33)
[2021-05-26] MEDS: POTASSIUM CHLORIDE ER 20 MEQ TAB.ER PO SCH ×2 (09:34→10:33)
[2021-05-26] MEDS: FOLIC ACID-VIT B COMPLEX-VIT C 1 CAP PO SCH ×2 (09:34→10:33)
[2021-05-26] MEDS: FAMOTIDINE 20 MG TAB PO SCH ×2 (09:34→10:33)
[2021-05-26] MEDS: PANTOPRAZOLE 40 MG/10 ML VIAL IV SCH (09:34)
[2021-05-26] MEDS: allopurinoL 100 MG TAB PO SCH ×2 (09:34→10:31)
--- NOTE | 2021-05-26 09:39 | P.NPCON ---
History of Present Illness - Reason for Consult end stage renal disease - History of Present Illness Reason for consultation: End-stage renal disease History of present illness: Patient is a 56-year-old female seen in renal consultation for end-stage renal disease. She is maintained on peritoneal dialysis. Patient was brought to the hospital due to generalized weakness and hypotension. According the patient's mom her blood pressure was in the systolic 80s and her oral intake was poor. Patient has very difficult IV access and several nurses are unable to obtain blood work. She is tolerating peritoneal dialysis exchanges well. Midodrine was added. Blood pressure this morning was 105/71. IV access has been obtained and she is receiving normal saline at 75 mL an hour. Potassium level was low on admission and was replaced. Repeat potassium level was 4.4 as of yesterday evening. Patient is cognitively impaired. She is not a reliable historian. Vital signs are stable. General: The patient appeared well nourished and normally developed. HEENT: Head exam is unremarkable. LUNGS: Breath sounds decreased. HEART: Rate and Rhythm are regular. ABDOMEN: Soft, no distention. PD catheter noted. EXTREMITITES: No edema. Past Medical History Past Medical History: Hyperlipidemia, Hypertension, Renal Disease, Thyroid Disorder Additional Past Medical History / Comment(s): developmentally delayed, ESRD with nightly peritoneal dialysis, anemia, mineral bone disease, reverse deep palate/ some speech issues, swelling legs and ankles, hx of fx rt leg, hypothyroid, degenerative joint disease. History of Any Multi-Drug Resistant Organisms: None Reported Past Surgical History: Ear Surgery, Joint Replacement Additional Past Surgical History / Comment(s): 09/25/20 total L knee arthroplasty, 09/30/20 permacath R chest, 01/13/20 peritoneal dialysis catheter, septoplasty, bilateral myringotomy/tubes, oral surgery, Past Anesthesia/Blood Transfusion Reactions: Family History of Problems w/ Anesthesia Additional Past Anesthesia/Blood Transfusion Reaction / Comment(s): mom-ponv Past Psychological History: No Psychological Hx Reported Additional Psychological History / Comment(s): Mother reports Isis as having high function disabilty with limited understanding of presented information - momYamel is legal guardian. Pt recently had total L knee replacement and went to [facility] for rehab, mother states she does not want pt going to that facility again, pt left there nonambulatory. Smoking Status: Never smoker Past Alcohol Use History: None Reported Past Drug Use History: None Reported - Past Family History Father Family Medical History: Cancer Additional Family Medical History / Comment(s): Father of esophageal cancer. Mother Family Medical History: Cancer, Hyperlipidemia, Hypertension, Osteoarthritis (OA) Additional Family Medical History / Comment(s): Tip of R index finger cancer/amputated. Medications and Allergies Home Medications Medication Instructions Recorded Confirmed Type Levothyroxine Sodium [Synthroid] 112 mcg PO AC-BRKFST 01/10/20 05/25/21 History allopurinoL [Zyloprim] 100 mg PO DAILY 10/16/20 05/25/21 History Atorvastatin [Lipitor] 10 mg PO HS 10/31/20 05/25/21 History Sevelamer [Renvela] 800 mg PO AC-TID 01/11/21 05/25/21 History Epoetin Felipe [Epogen] 20,000 unit SQ Q7D 05/25/21 05/25/21 History Famotidine [Pepcid] 20 mg PO DAILY 05/25/21 05/25/21 History Gentamicin Sulfate [Gentamicin 1 applic TOPICAL DAILY PRN 05/25/21 05/25/21 History Sulfate 0.1%] Magnesium Oxide [Evnas] 500 mg PO DAILY 05/25/21 05/25/21 History Midodrine HCl [ProAmatine] 10 mg PO AC-TID 05/25/21 05/25/21 History Ondansetron Odt [Zofran Odt] 8 mg PO Q8H PRN 05/25/21 05/25/21 History Potassium Chloride ER [K-Dur 20] 20 meq PO DAILY 05/25/21 05/25/21 History Danna-Tino 1 tab PO DAILY 05/25/21 05/25/21 History Sertraline [Zoloft] 25 mg PO HS 05/25/21 05/25/21 History Allergies Allergy/AdvReac Type Severity Reaction Status Date / Time lisinopril Allergy Unknown Verified 05/25/21 18:30 Physical Exam Vitals: Vital Signs Temp Pulse Pulse Resp BP BP Pulse Ox 05/26/21 06:46 105/71 05/26/21 04:00 97.5 F L 104 H 18 89/64 96 05/26/21 02:11 90/62 05/26/21 00:22 82/52 05/25/21 23:30 97 17 81/53 99 05/25/21 22:15 97.5 F L 107 H 18 91/65 95 05/25/21 21:13 100 18 92/58 96 05/25/21 18:39 82 18 91/57 100 05/25/21 14:59 98.6 F 97 18 89/61 96 Intake and Output 05/25/21 05/26/21 05/26/21 22:59 06:59 14:59 Other: Voiding Method Diaper Diaper Incontinent Incontinent # Voids 0 Weight 72.575 kg Results - Lab Results Most recent lab results Calcium 9.1 mg/dL (8.4-10.2) 05/25/21 20:26 Magnesium 2.1 mg/dL (1.6-2.3) 05/25/21 16:18 05/25/21 15:52 05/25/21 20:26 Assessment and Plan Plan: Assessment: 1. End-stage renal disease maintained on peritoneal dialysis. 2. Hypokalemia from poor intake and PD losses. Replace. Better. 3. Hypotension due to hypovolemia. On midodrine. Better. 4. Chronic kidney disease mineral bone disease maintained on Renvela. Plan: Maintain current PD exchanges - 2 L every 6 hours with 1.5% dextrose solution. Maintain normal saline at 75 mL an hour. Patient received normal saline bolus on admission. Check phosphorus level. Maintain midodrine. Hold for systolic blood pressure greater than 110. Vascular surgery is consulted for Mediport insertion as unable to obtain blood work outpatient. Thank you for the consultation. I will continue to follow the patient with you during her hospital stay.
--- NOTE | 2021-05-26 10:26 | P.HPIM ---
History of Present Illness H&P Date: 05/25/21 Chief Complaint: altered mental status, severe dehydration, end-stage renal disease HISTORY OF PRESENT ILLNESS 56-year-old female with developmental delay who had history of end-stage renal disease on peritoneal dialysis, history of hypertension, hyperlipidemia, hypothyroidism who had an infected left knee late last year had surgery and ended up going to rehab for long time was home for the last few weeks when patient developed to have significant change mental status with decreased oral intake with worsening symptoms overall for the last few days have been having fatigue tiredness not been eating or drinking no now moving. Also her dialysis has been getting quite bit worse patient apparently will be switch to hemodialysis was told need workup for fistula graft the left arm for possible hemodialysis. Family ended up bringing her to demurs department at [facility] where was seen and evaluated surprisingly found to have mildly elevated troponin with severe electrolyte imbalance with potassium of 2.1 only. Chest x-ray did not show any infection just atelectasis, COVID-19 was negative at the time. Patient was started on gentle hydration will be admitted to the hospital be seen nephrology and vascular, CK with troponin 3 will be done and patient will be seen cardiology further intervention after doing an echocardiogram will depend on the result. REVIEW OF SYSTEMS Constitutional: No fever, no chills, no night sweats. significant weight change or generalized weakness fatigue lethargy daytime sleepiness EENT: No headache. No blurred vision or double vision, no loss of vision. No loss of Hearing, no ringing in the ears, no dizziness. No nasal drainage or congestion. No epistaxis. No sore throat. Lungs: No shortness of breath, cough, no sputum production. No wheezing. Cardiovascular: No chest pain, no lower extremity edema. No palpitations. No paroxysmal nocturnal dyspnea. No orthopnea. No lightheadedness or dizziness. No syncopal episodes. Abdominal: No abdominal pain. No nausea, vomiting. No diarrhea. No constipation. No bloody or tarry stools.. No loss of appetite. Genitourinary: decrease in urine output. Musculoskeletal: No myalgias. No muscle weakness, no gait dysfunction, no frequent falls. No back pain. No neck pain. Integumentary: No wounds, no lesions. No rash or pruritus. No unusual bruising. No change in hair or nails. Neurologic: developmental delay with generalized weakness fatigue and lethargy. Psychiatric: No depression. No anxiety. No mood swings. Endocrine: No abnormal blood sugars. No weight change. No excessive sweating or thirst. No cold intolerance. SOCIAL HISTORY no history of tobacco abuse, no alcohol abuse. FAMILY HISTORY positive for CAD, diabetes hypertension. PHYSICAL EXAMINATION Gen: This is well-developed does not look in any respiratory distress. HEENT: Head is atraumatic, normocephalic. Pupils equal, round. Sclerae is anicte dania. NECK: Supple. No JVD. No lymphadenopathy. No thyromegaly. LUNGS: decreased breath some bilaterally with rhonchi no crackles or wheezes. HEART: Regular rate and rhythm. No murmur. ABDOMEN: Soft. Bowel sounds are present. significant ascites the abdominal area with the PD With no sign of infection. EXTREMITIES: No pedal edema. No calf tenderness.scar on the left knee from previous surgery. NEUROLOGICAL: Patient is awake, alert and oriented with slight confusion. Cranial nerves 2 through 12 are grossly intact. ASSESSMENT AND PLAN 1.altered mental status: Clear etiology patient had severe dehydration significant change on dialysis schedule and such can be the reason also patient might have secondary infection such as urinary tract infection her white blood cell was mildly elevated no urine was collected at the time. With element of elevated troponin with the possibility of non-ST [place] can be another possibility. 2 elevated troponin and possible non-ST AZ: CK with troponin 3 will be done, consult cardiology echocardiogram will be done based on the results decide on further management including if needed to do any intervention. 3 end-stage renal disease on CAPD currently patient apparently been tried to switch to hemodialysis consult nephrology will continue CAPD for now until her dialysis line is on board when patient can be switched to hemodialysis. 4 hypertension: Patient blood pressure has been slightly bit low she is using midodrine 10 mg 3 times a day. 5 hypothyroidism: Continue patient on levothyroxine 112 g daily. 6 hyperlipidemia: Has been on atorvastatin 10 mg a day. 7 chronic gout: Patient has been on Zyloprim 100 mg daily. 8 electrolyte imbalance with severe hypokalemia: Patient has been on Klor-Con 20 me daily we'll titrate dose up to 20 mg 3 times a day for now recheck potassium level replacement will be done. 9 chronic anemia: Has been on iron and Epogen. 10 infected left knee post surgery patient left knee is non-ambulatory currently she need help will consider physical therapy the patient therapy. 11 severe dehydration: Continue gentle hydration for now watch for any fluid overload. 12 GI prophylaxis: Patient be on Pepcid 20 mg daily. 13 DVT prophylaxis: Knee-high ANDRE hose and Venodyne boots if needed subcu heparin will be done. 12. COVID-19 testing.was negative. Patient will be admitted to the hospital for a minimum of 2 night stay. Past Medical History Past Medical History: Hyperlipidemia, Hypertension, Renal Disease, Thyroid Disorder Additional Past Medical History / Comment(s): developmentally delayed, ESRD with nightly peritoneal dialysis, anemia, mineral bone disease, reverse deep palate/ some speech issues, swelling legs and ankles, hx of fx rt leg, hypothyroid, degenerative joint disease. History of Any Multi-Drug Resistant Organisms: None Reported Past Surgical History: Ear Surgery, Joint Replacement Additional Past Surgical History / Comment(s): 09/25/20 total L knee arthroplasty, 09/30/20 permacath R chest, 01/13/20 peritoneal dialysis catheter, septoplasty, bilateral myringotomy/tubes, oral surgery, Past Anesthesia/Blood Transfusion Reactions: Family History of Problems w/ Anesthesia Additional Past Anesthesia/Blood Transfusion Reaction / Comment(s): mom-ponv Past Psychological History: No Psychological Hx Reported Smoking Status: Never smoker Past Alcohol Use History: None Reported Past Drug Use History: None Reported - Past Family History Father Family Medical History: Cancer Additional Family Medical History / Comment(s): Father of esophageal cancer. Mother Family Medical History: Cancer, Hyperlipidemia, Hypertension, Osteoarthritis (OA) Additional Family Medical History / Comment(s): Tip of R index finger cancer/amputated. Medications and Allergies Home Medications Medication Instructions Recorded Confirmed Type Levothyroxine Sodium [Synthroid] 112 mcg PO AC-BRKFST 01/10/20 05/25/21 History allopurinoL [Zyloprim] 100 mg PO DAILY 10/16/20 05/25/21 History Atorvastatin [Lipitor] 10 mg PO HS 10/31/20 05/25/21 History Sevelamer [Renvela] 800 mg PO AC-TID 01/11/21 05/25/21 History Epoetin Felipe [Epogen] 20,000 unit SQ Q7D 05/25/21 05/25/21 History Famotidine [Pepcid] 20 mg PO DAILY 05/25/21 05/25/21 History Gentamicin Sulfate [Gentamicin 1 applic TOPICAL DAILY PRN 05/25/21 05/25/21 History Sulfate 0.1%] Magnesium Oxide [Evans] 500 mg PO DAILY 05/25/21 05/25/21 History Midodrine HCl [ProAmatine] 10 mg PO AC-TID 05/25/21 05/25/21 History Ondansetron Odt [Zofran Odt] 8 mg PO Q8H PRN 05/25/21 05/25/21 History Potassium Chloride ER [K-Dur 20] 20 meq PO DAILY 05/25/21 05/25/21 History Danna-Tino 1 tab PO DAILY 05/25/21 05/25/21 History Sertraline [Zoloft] 25 mg PO HS 05/25/21 05/25/21 History Allergies Allergy/AdvReac Type Severity Reaction Status Date / Time lisinopril Allergy Unknown Verified 05/25/21 18:30 Physical Exam Vitals: Vital Signs Temp Pulse Resp BP Pulse Ox 05/25/21 18:39 82 18 91/57 100 05/25/21 14:59 98.6 F 97 18 89/61 96 Intake and Output 05/25/21 05/25/21 05/25/21 06:59 14:59 22:59 Other: Weight 72.575 kg Results CBC & Chem 7: 05/25/21 15:52 05/25/21 20:26 Labs: Abnormal Lab Results - Last 24 Hours (Table) 05/25/21 05/25/21 05/25/21 Range/Units 15:52 15:52 16:18 WBC 14.2 H (3.8-10.6) k/uL MCV 102.9 H (80.0-100.0) fL MCHC 30.6 L (31.0-37.0) g/dL RDW 17.3 H (11.5-15.5) % Neutrophils # 11.9 H (1.3-7.7) k/uL Sodium (137-145) mmol/L Potassium (3.5-5.1) mmol/L Chloride (98-107) mmol/L BUN (7-17) mg/dL Creatinine (0.52-1.04) mg/dL Glucose (74-99) mg/dL Plasma Lactic Acid David 2.7 H* (0.7-2.0) mmol/L AST (14-36) U/L ALT (4-34) U/L Alkaline Phosphatase (38-126) U/L Troponin I 0.161 H* (0.000-0.034) ng/mL Total Protein (6.3-8.2) g/dL Albumin (3.5-5.0) g/dL 05/25/21 05/25/21 Range/Units 16:18 18:35 WBC (3.8-10.6) k/uL MCV (80.0-100.0) fL MCHC (31.0-37.0) g/dL RDW (11.5-15.5) % Neutrophils # (1.3-7.7) k/uL Sodium 131 L (137-145) mmol/L Potassium 2.1 L* (3.5-5.1) mmol/L Chloride 97 L (98-107) mmol/L BUN 41 H (7-17) mg/dL Creatinine 4.75 H (0.52-1.04) mg/dL Glucose 123 H (74-99) mg/dL Plasma Lactic Acid David (0.7-2.0) mmol/L AST 84 H (14-36) U/L ALT 62 H (4-34) U/L Alkaline Phosphatase 180 H (38-126) U/L Troponin I 0.163 H* (0.000-0.034) ng/mL Total Protein 4.7 L (6.3-8.2) g/dL Albumin 1.9 L (3.5-5.0) g/dL
[2021-05-26] MEDS: SODIUM CHLORIDE 0.9% 1,000 ML IV SCH (11:00)
[2021-05-26 11:09] LABS: Anisocytosis Slight; Basophils % (A) 0 %; Eosinophils % (A) 0 %; HGB 11.3 gm/dL (11.4-16.0); Hypochromasia Moderate; Lymphocytes # (A) 1.1 k/uL (1.0-4.8); Lymphocytes % (A) 11 %; MCH 31.4 pg (25.0-35.0); MCHC 30.6 g/dL (31.0-37.0); MCV 102.3 fL (80.0-100.0); Macrocytosis Moderate; Mean Platelet Volume 9.1; Monocytes # (A) 0.4 k/uL (0-1.0); Monocytes % (A) 4 %; Neutrophils # (A) 9.1 k/uL (1.3-7.7); Neutrophils % (A) 85 %; Platelet Count 291 k/uL (150-450); RBC 3.62 m/uL (3.80-5.40); RDW 17.3 % (11.5-15.5); WBC 10.8 k/uL (3.8-10.6)
[2021-05-26 11:14] LABS: Calcium 9.3 mg/dL (8.4-10.2); Magnesium 2.1 mg/dL (1.6-2.3); Phosphorus 4.4 mg/dL (2.5-4.5); Potassium 3.1 mmol/L (3.5-5.1)
--- NOTE | 2021-05-26 12:15 | P.GSCN ---
History of Present Illness History of present illness: 56-year-old white female patient is known to me from the past. Patient has history of chronic renal failure on peritoneal dialysis. He has been admitted with a low blood pressure patient has a very difficult to start any IV on this patient for hydration and medication I was consulted for placement of a Port-A-Cath. P Patient on peritoneal dialysis tolerating well Neck examination neck is supple no bruit appreciated Chest patient has distant breath sounds first and second sound normal Abdomen soft patient has peritoneal dialysis nontender Vascular femorals are palpable bilateral Plan is placement of a Port-A-Cath risk and complication discussed Past Medical History Past Medical History: Hyperlipidemia, Hypertension, Renal Disease, Thyroid Disorder Additional Past Medical History / Comment(s): developmentally delayed, ESRD with nightly peritoneal dialysis, anemia, mineral bone disease, reverse deep palate/ some speech issues, swelling legs and ankles, hx of fx rt leg, hypothyroid, degenerative joint disease. History of Any Multi-Drug Resistant Organisms: None Reported Past Surgical History: Ear Surgery, Joint Replacement Additional Past Surgical History / Comment(s): 09/25/20 total L knee arthroplasty, 09/30/20 permacath R chest, 01/13/20 peritoneal dialysis catheter, septoplasty, bilateral myringotomy/tubes, oral surgery, Past Anesthesia/Blood Transfusion Reactions: Family History of Problems w/ Ane sthesia Additional Past Anesthesia/Blood Transfusion Reaction / Comm: mom-ponv Past Psychological History: No Psychological Hx Reported Smoking Status: Never smoker Past Alcohol Use History: None Reported Past Drug Use History: None Reported - Past Family History Father Family Medical History: Cancer Additional Family Medical History / Comment(s): Father of esophageal cancer. Mother Family Medical History: Cancer, Hyperlipidemia, Hypertension, Osteoarthritis (OA) Additional Family Medical History / Comment(s): Tip of R index finger cancer/amputated. Medications and Allergies Home Medications Medication Instructions Recorded Confirmed Type Levothyroxine Sodium [Synthroid] 112 mcg PO AC-BRKFST 01/10/20 05/25/21 History allopurinoL [Zyloprim] 100 mg PO DAILY 10/16/20 05/25/21 History Atorvastatin [Lipitor] 10 mg PO HS 10/31/20 05/25/21 History Sevelamer [Renvela] 800 mg PO AC-TID 01/11/21 05/25/21 History Epoetin Felipe [Epogen] 20,000 unit SQ Q7D 05/25/21 05/25/21 History Famotidine [Pepcid] 20 mg PO DAILY 05/25/21 05/25/21 History Gentamicin Sulfate [Gentamicin 1 applic TOPICAL DAILY PRN 05/25/21 05/25/21 History Sulfate 0.1%] Magnesium Oxide [Evans] 500 mg PO DAILY 05/25/21 05/25/21 History Midodrine HCl [ProAmatine] 10 mg PO AC-TID 05/25/21 05/25/21 History Ondansetron Odt [Zofran Odt] 8 mg PO Q8H PRN 05/25/21 05/25/21 History Potassium Chloride ER [K-Dur 20] 20 meq PO DAILY 05/25/21 05/25/21 History Danna-Tino 1 tab PO DAILY 05/25/21 05/25/21 History Sertraline [Zoloft] 25 mg PO HS 05/25/21 05/25/21 History Allergies Allergy/AdvReac Type Severity Reaction Status Date / Time lisinopril Allergy Unknown Verified 05/25/21 18:30 Surgical - Exam Vital Signs Temp Pulse Resp BP Pulse Ox 98.6 F 97 18 89/61 96 05/25/21 14:59 05/25/21 14:59 05/25/21 14:59 05/25/21 14:59 05/25/21 14:59 Results - Labs 05/26/21 10:26 05/26/21 10:33 Abnormal Lab Results - Last 24 Hours (Table) 05/25/21 05/25/21 05/25/21 Range/Units 15:52 15:52 16:18 WBC 14.2 H (3.8-10.6) k/uL RBC (3.80-5.40) m/uL Hgb (11.4-16.0) gm/dL MCV 102.9 H (80.0-100.0) fL MCHC 30.6 L (31.0-37.0) g/dL RDW 17.3 H (11.5-15.5) % Neutrophils # 11.9 H (1.3-7.7) k/uL Sodium (137-145) mmol/L Potassium (3.5-5.1) mmol/L Chloride (98-107) mmol/L Carbon Dioxide (22-30) mmol/L BUN (7-17) mg/dL Creatinine (0.52-1.04) mg/dL Glucose (74-99) mg/dL Plasma Lactic Acid David 2.7 H* (0.7-2.0) mmol/L AST (14-36) U/L ALT (4-34) U/L Alkaline Phosphatase (38-126) U/L Troponin I 0.161 H* (0.000-0.034) ng/mL Total Protein (6.3-8.2) g/dL Albumin (3.5-5.0) g/dL 05/25/21 05/25/21 05/25/21 Range/Units 16:18 18:35 20:26 WBC (3.8-10.6) k/uL RBC (3.80-5.40) m/uL Hgb (11.4-16.0) gm/dL MCV (80.0-100.0) fL MCHC (31.0-37.0) g/dL RDW (11.5-15.5) % Neutrophils # (1.3-7.7) k/uL Sodium 131 L (137-145) mmol/L Potassium 2.1 L* (3.5-5.1) mmol/L Chloride 97 L (98-107) mmol/L Carbon Dioxide (22-30) mmol/L BUN 41 H (7-17) mg/dL Creatinine 4.75 H (0.52-1.04) mg/dL Glucose 123 H (74-99) mg/dL Plasma Lactic Acid David (0.7-2.0) mmol/L AST 84 H (14-36) U/L ALT 62 H (4-34) U/L Alkaline Phosphatase 180 H (38-126) U/L Troponin I 0.163 H* 0.160 H* (0.000-0.034) ng/mL Total Protein 4.7 L (6.3-8.2) g/dL Albumin 1.9 L (3.5-5.0) g/dL 05/25/21 05/26/21 05/26/21 Range/Units 20:26 10:26 10:33 WBC 10.8 H (3.8-10.6) k/uL RBC 3.62 L (3.80-5.40) m/uL Hgb 11.3 L (11.4-16.0) gm/dL MCV 102.3 H (80.0-100.0) fL MCHC 30.6 L (31.0-37.0) g/dL RDW 17.3 H (11.5-15.5) % Neutrophils # 9.1 H (1.3-7.7) k/uL Sodium 131 L 133 L (137-145) mmol/L Potassium 3.1 L (3.5-5.1) mmol/L Chloride (98-107) mmol/L Carbon Dioxide 21 L (22-30) mmol/L BUN 43 H 44 H (7-17) mg/dL Creatinine 4.78 H 5.15 H (0.52-1.04) mg/dL Glucose 104 H 111 H (74-99) mg/dL Plasma Lactic Acid David (0.7-2.0) mmol/L AST (14-36) U/L ALT (4-34) U/L Alkaline Phosphatase (38-126) U/L Troponin I (0.000-0.034) ng/mL Total Protein (6.3-8.2) g/dL Albumin (3.5-5.0) g/dL Diabetes panel 05/25/21 05/25/21 05/26/21 Range/Units 16:18 20:26 10:33 Sodium 131 L 131 L 133 L (137-145) mmol/L Potassium 2.1 L* 4.4 3.1 L (3.5-5.1) mmol/L Chloride 97 L 101 101 (98-107) mmol/L Carbon Dioxide 25 22 21 L (22-30) mmol/L BUN 41 H 43 H 44 H (7-17) mg/dL Creatinine 4.75 H 4.78 H 5.15 H (0.52-1.04) mg/dL Glucose 123 H 104 H 111 H (74-99) mg/dL Calcium 8.9 9.1 9.3 (8.4-10.2) mg/dL AST 84 H (14-36) U/L ALT 62 H (4-34) U/L Alkaline Phosphatase 180 H (38-126) U/L Total Protein 4.7 L (6.3-8.2) g/dL Albumin 1.9 L (3.5-5.0) g/dL Calcium panel 05/25/21 05/25/21 05/26/21 Range/Units 16:18 20:26 10:33 Calcium 8.9 9.1 9.3 (8.4-10.2) mg/dL Phosphorus 4.4 (2.5-4.5) mg/dL Albumin 1.9 L (3.5-5.0) g/dL Pituitary panel 05/25/21 05/25/21 05/26/21 Range/Units 16:18 20:26 10:33 Sodium 131 L 131 L 133 L (137-145) mmol/L Potassium 2.1 L* 4.4 3.1 L (3.5-5.1) mmol/L Chloride 97 L 101 101 (98-107) mmol/L Carbon Dioxide 25 22 21 L (22-30) mmol/L BUN 41 H 43 H 44 H (7-17) mg/dL Creatinine 4.75 H 4.78 H 5.15 H (0.52-1.04) mg/dL Glucose 123 H 104 H 111 H (74-99) mg/dL Calcium 8.9 9.1 9.3 (8.4-10.2) mg/dL Adrenal panel 05/25/21 05/25/21 05/26/21 Range/Units 16:18 20:26 10:33 Sodium 131 L 131 L 133 L (137-145) mmol/L Potassium 2.1 L* 4.4 3.1 L (3.5-5.1) mmol/L Chloride 97 L 101 101 (98-107) mmol/L Carbon Dioxide 25 22 21 L (22-30) mmol/L BUN 41 H 43 H 44 H (7-17) mg/dL Creatinine 4.75 H 4.78 H 5.15 H (0.52-1.04) mg/dL Glucose 123 H 104 H 111 H (74-99) mg/dL Calcium 8.9 9.1 9.3 (8.4-10.2) mg/dL Total Bilirubin 0.5 (0.2-1.3) mg/dL AST 84 H (14-36) U/L ALT 62 H (4-34) U/L Alkaline Phosphatase 180 H (38-126) U/L Total Protein 4.7 L (6.3-8.2) g/dL Albumin 1.9 L (3.5-5.0) g/dL
--- NOTE | 2021-05-26 12:48 | P.PN ---
Subjective Progress Note Date: 05/26/21 HISTORY OF PRESENT ILLNESS 56-year-old female with developmental delay who had history of end-stage renal disease on peritoneal dialysis, history of hypertension, hyperlipidemia, hy pothyroidism who had an infected left knee late last year had surgery and ended up going to rehab for long time was home for the last few weeks when patient developed to have significant change mental status with decreased oral intake with worsening symptoms overall for the last few days have been having fatigue tiredness not been eating or drinking no now moving. Also her dialysis has been getting quite bit worse patient apparently will be switch to hemodialysis was told need workup for fistula graft the left arm for possible hemodialysis. Family ended up bringing her to demurs department at [facility] where was seen and evaluated surprisingly found to have mildly elevated troponin with severe electrolyte imbalance with potassium of 2.1 only. Chest x-ray did not show any infection just atelectasis, COVID-19 was negative at the time. Patient was started on gentle hydration will be admitted to the hospital be seen nephrology and vascular, CK with troponin 3 will be done and patient will be seen cardiology further intervention after doing an echocardiogram will depend on the result. 05/26: Patient states that she is feeling better. No complaints or concerns. Plan is for patient to change from peritoneal dialysis to hemodialysis. Consult for nephrology and vascular surgery in place. Patient remains afebrile, heart rate 108, respirations 18, blood pressure 105/71 pulse ox 90% on room air. WC 10.8, hemoglobin 11.3, sodium 133, potassium 3.1, BUN 44, creatinine 5.15. REVIEW OF SYSTEMS Constitutional: No fever, no chills, no night sweats. significant weight change or generalized weakness fatigue lethargy daytime sleepiness EENT: No headache. No blurred vision or double vision, no loss of vision. No loss of Hearing, no ringing in the ears, no dizziness. No nasal drainage or congestion. No epistaxis. No sore throat. Lungs: No shortness of breath, cough, no sputum production. No wheezing. Cardiovascular: No chest pain, no lower extremity edema. No palpitations. No paroxysmal nocturnal dyspnea. No orthopnea. No lightheadedness or dizziness. No syncopal episodes. Abdominal: No abdominal pain. No nausea, vomiting. No diarrhea. No constipation. No bloody or tarry stools.. No loss of appetite. Genitourinary: decrease in urine output. Musculoskeletal: No myalgias. No muscle weakness, no gait dysfunction, no freq uent falls. No back pain. No neck pain. Integumentary: No wounds, no lesions. No rash or pruritus. No unusual bruising. No change in hair or nails. Neurologic: developmental delay with generalized weakness fatigue and lethargy. Psychiatric: No depression. No anxiety. No mood swings. Endocrine: No abnormal blood sugars. No weight change. No excessive sweating or thirst. No cold intolerance. PHYSICAL EXAMINATION Gen: This is well-developed does not look in any respiratory distress. HEENT: Head is atraumatic, normocephalic. Pupils equal, round. Sclerae is an icteric. NECK: Supple. No JVD. No lymphadenopathy. No thyromegaly. LUNGS: decreased breath some bilaterally with rhonchi no crackles or wheezes. HEART: Regular rate and rhythm. No murmur. ABDOMEN: Soft. Bowel sounds are present. significant ascites the abdominal area with the PD With no sign of infection. EXTREMITIES: No pedal edema. No calf tenderness.scar on the left knee from previous surgery. NEUROLOGICAL: Patient is awake, alert and oriented with slight confusion. Cranial nerves 2 through 12 are grossly intact. ASSESSMENT AND PLAN 1.altered mental status: Clear etiology patient had severe dehydration significant change on dialysis schedule and such can be the reason also patient might have secondary infection such as urinary tract infection her white blood cell was mildly elevated no urine was collected at the time. With element of elevated troponin with the possibility of non-ST NC can be another possibility. 2 elevated troponin and possible non-ST NC: CK with troponin 3 will be done, consult cardiology echocardiogram will be done based on the results decide on further management including if needed to do any intervention. 3 end-stage renal disease on CAPD currently patient apparently been tried to switch to hemodialysis consult nephrology will continue CAPD for now until her dialysis line is on board when patient can be switched to hemodialysis. 4 hypertension: Patient blood pressure has been slightly bit low she is using midodrine 10 mg 3 times a day. 5 hypothyroidism: Continue patient on levothyroxine 112 g daily. 6 hyperlipidemia: Has been on atorvastatin 10 mg a day. 7 chronic gout: Patient has been on Zyloprim 100 mg daily. 8 electrolyte imbalance with severe hypokalemia: Patient has been on Klor-Con 20 me daily we'll titrate dose up to 20 mg 3 times a day for now recheck potassium level replacement will be done. 9 chronic anemia: Has been on iron and Epogen. 10 infected left knee post surgery patient left knee is non-ambulatory currently she need help will consider physical therapy the patient therapy. 11 severe dehydration: Continue gentle hydration for now watch for any fluid overload. 12 GI prophylaxis: Patient be on Pepcid 20 mg daily. 13 DVT prophylaxis: Knee-high NADRE hose and Venodyne boots if needed subcu heparin will be done. 12. COVID-19 testing.was negative. 15. Hypokalemia. Potassium chloride 10 mEq IV piggyback times 4, repeat BMP in the a.m. Patient will be admitted to the hospital for a minimum of 2 night stay. Discharge plan: To be determined Impression and plan of care have been directed as dictated by the signing physician. Jocelin Castillo nurse practitioner acting as scribe for signing physician. Objective - Vital Signs Vital signs: Vital Signs Temp 98.5 F 05/26/21 08:00 Pulse 108 H 05/26/21 08:00 Resp 18 05/26/21 08:00 BP 82/62 05/26/21 08:00 Pulse Ox 98 05/26/21 08:00 Intake & Output 05/25/21 05/26/21 05/26/21 18:59 06:59 18:59 Weight 72.575 kg 72.575 kg Other: Voiding Method Diaper Diaper Incontinent Incontinent # Voids 0 - Labs CBC & Chem 7: 05/26/21 10:26 05/26/21 10:33 Labs: Abnormal Lab Results - Last 24 Hours (Table) 05/25/21 05/25/21 05/25/21 Range/Units 15:52 15:52 16:18 WBC 14.2 H (3.8-10.6) k/uL RBC (3.80-5.40) m/uL Hgb (11.4-16.0) gm/dL MCV 102.9 H (80.0-100.0) fL MCHC 30.6 L (31.0-37.0) g/dL RDW 17.3 H (11.5-15.5) % Neutrophils # 11.9 H (1.3-7.7) k/uL Sodium (137-145) mmol/L Potassium (3.5-5.1) mmol/L Chloride (98-107) mmol/L Carbon Dioxide (22-30) mmol/L BUN (7-17) mg/dL Creatinine (0.52-1.04) mg/dL Glucose (74-99) mg/dL Plasma Lactic Acid David 2.7 H* (0.7-2.0) mmol/L AST (14-36) U/L ALT (4-34) U/L Alkaline Phosphatase (38-126) U/L Troponin I 0.161 H* (0.000-0.034) ng/mL Total Protein (6.3-8.2) g/dL Albumin (3.5-5.0) g/dL 05/25/21 05/25/21 05/25/21 Range/Units 16:18 18:35 20:26 WBC (3.8-10.6) k/uL RBC (3.80-5.40) m/uL Hgb (11.4-16.0) gm/dL MCV (80.0-100.0) fL MCHC (31.0-37.0) g/dL RDW (11.5-15.5) % Neutrophils # (1.3-7.7) k/uL Sodium 131 L (137-145) mmol/L Potassium 2.1 L* (3.5-5.1) mmol/L Chloride 97 L (98-107) mmol/L Carbon Dioxide (22-30) mmol/L BUN 41 H (7-17) mg/dL Creatinine 4.75 H (0.52-1.04) mg/dL Glucose 123 H (74-99) mg/dL Plasma Lactic Acid David (0.7-2.0) mmol/L AST 84 H (14-36) U/L ALT 62 H (4-34) U/L Alkaline Phosphatase 180 H (38-126) U/L Troponin I 0.163 H* 0.160 H* (0.000-0.034) ng/mL Total Protein 4.7 L (6.3-8.2) g/dL Albumin 1.9 L (3.5-5.0) g/dL 05/25/21 05/26/21 05/26/21 Range/Units 20:26 10:26 10:33 WBC 10.8 H (3.8-10.6) k/uL RBC 3.62 L (3.80-5.40) m/uL Hgb 11.3 L (11.4-16.0) gm/dL MCV 102.3 H (80.0-100.0) fL MCHC 30.6 L (31.0-37.0) g/dL RDW 17.3 H (11.5-15.5) % Neutrophils # 9.1 H (1.3-7.7) k/uL Sodium 131 L 133 L (137-145) mmol/L Potassium 3.1 L (3.5-5.1) mmol/L Chloride (98-107) mmol/L Carbon Dioxide 21 L (22-30) mmol/L BUN 43 H 44 H (7-17) mg/dL Creatinine 4.78 H 5.15 H (0.52-1.04) mg/dL Glucose 104 H 111 H (74-99) mg/dL Plasma Lactic Acid David (0.7-2.0) mmol/L AST (14-36) U/L ALT (4-34) U/L Alkaline Phosphatase (38-126) U/L Troponin I (0.000-0.034) ng/mL Total Protein (6.3-8.2) g/dL Albumin (3.5-5.0) g/dL
[2021-05-26] MEDS: POTASSIUM CHLORIDE 10 MEQ in WATER FOR INJECTION 1 100ML.BAG IVPB SCH ×4 (13:01→17:26)
[2021-05-26] MEDS ORDERED: DIALYSIS (PERIT 1.5%) 2,000 ML 30 G/2,000 ML BAG INTRAPERIT SCH ×2 (20:00)
[2021-05-26] MEDS: VANCOMYCIN INTRAPERIT ONE ×2 (22:14→22:15)
[2021-05-26] MEDS: CEFTAZIDIME INTRAPERIT ONE ×2 (22:14→22:15)
[2021-05-26] MEDS: DIALYSIS DEX INTRAPERIT ONE ×2 (22:14→22:15)
[2021-05-26] MEDS: ATORVASTATIN 10 MG TAB PO SCH (22:18)
[2021-05-26] MEDS: SERTRALINE 25 MG TAB PO SCH (22:18)
[2021-05-27 01:44] LABS: Appearance,BF Cloudy; Color,BF Yellow
[2021-05-27 02:23] LABS: Nucleated Cells, Body Fluid 645 /uL; RBC, Body Fluid 20 /uL
[2021-05-27] MEDS: MIDODRINE 5 MG TAB PO SCH ×3 (04:10→17:03)
[2021-05-27] MEDS: DIALYSIS (PERIT 1.5%) 2,000 ML 30 G/2,000 ML BAG INTRAPERIT SCH ×4 (04:10→22:05)
[2021-05-27 04:41] LABS: Mononuclear WBC,Body Fluid 4 %; Polynuclear WBC,Body Fluid 96 %; Total Cells Counted,Body Fluid 100
[2021-05-27] MEDS: SODIUM CHLORIDE 0.9% 1,000 ML IV SCH ×2 (05:58→14:45)
[2021-05-27] MEDS: SEVELAMER 800 MG TAB PO SCH ×3 (06:14→17:04)
[2021-05-27] MEDS: LEVOTHYROXINE 112 MCG TAB PO SCH (06:14)
[2021-05-27] MEDS: PANTOPRAZOLE 40 MG/10 ML VIAL IV SCH ×2 (10:03→10:14)
[2021-05-27] MEDS: MAGNESIUM OXIDE 400 MG TAB PO SCH (10:03)
[2021-05-27] MEDS: FOLIC ACID-VIT B COMPLEX-VIT C 1 CAP PO SCH (10:03)
[2021-05-27] MEDS: POTASSIUM CHLORIDE ER 20 MEQ TAB.ER PO SCH (10:03)
[2021-05-27] MEDS: allopurinoL 100 MG TAB PO SCH (10:03)
[2021-05-27] MEDS: FAMOTIDINE 20 MG TAB PO SCH (10:03)
[2021-05-27 10:16] LABS: Calcium 9.2 mg/dL (8.4-10.2); Phosphorus 4.1 mg/dL (2.5-4.5)
[2021-05-27 10:18] LABS: Potassium 3.4 mmol/L (3.5-5.1)
[2021-05-27] MEDS ORDERED: POTASSIUM CHLORIDE ER 20 MEQ TAB.ER PO STA (12:17)
--- NOTE | 2021-05-27 13:03 | PN ---
PROGRESS NOTE Patient is seen for followup for end-stage renal disease. She is currently maintained on peritoneal dialysis using 1.5% solution q.6 hours. Patient is being treated for underlying PD peritonitis. Fluid culture is currently pending. Patient is maintained on vancomycin and Fortaz. She does not have good IV access and there are plans for possible PICC line placement. However, patient is not receiving much IV medications except for Protonix. She has been eating okay and is maintained on IV fluids. On examination today, blood pressure 100/68, heart rate 77 per minute. She is afebrile. EXAMINATION OF THE HEART: S1 and S2. EXAMINATION OF LUNGS: Bilateral breath sounds are heard. Decreased breath sounds at the bases. Abdomen is soft, non-tender. Examination of lower extremities shows edema 1+ bilaterally. DIRECTOR OF INSTRUMENTAL MUSIC EXAM: Grossly intact. Labs show sodium 132, potassium 3.4, BUN 39, creatinine 4.73. ASSESSMENT: 1. End-stage renal disease, maintained on peritoneal dialysis. Continue current PD exchanges. 2. Hypotension. Continue with the midodrine. 3. Hypokalemia. Maintained on potassium supplementation. Will give an extra dose today. 4. Mild volume overload. Can decrease/discontinue IV fluids. 5. Abdominal pain secondary to PD peritonitis; seems to have improved. Patient is tolerating oral intake. Can switch the Protonix to IV. PLAN: Try to avoid PICC line placement if possible. We can switch the proton pump inhibitors to p.o. I will discontinue the IV fluids. Patient is encouraged to increase oral intake. Give an extra dose of potassium today and continue with intraperitoneal antibiotics. MMODL / IJN: [id number] /
--- NOTE | 2021-05-27 17:36 | P.PN ---
Subjective Progress Note Date: 05/27/21 HISTORY OF PRESENT ILLNESS 56-year-old female with developmental delay who had history of end-stage renal disease on peritoneal dialysis, history of hypertension, hyperlipidemia, h ypothyroidism who had an infected left knee late last year had surgery and ended up going to rehab for long time was home for the last few weeks when patient developed to have significant change mental status with decreased oral intake with worsening symptoms overall for the last few days have been having fatigue tiredness not been eating or drinking no now moving. Also her dialysis has been getting quite bit worse patient apparently will be switch to hemodialysis was told need workup for fistula graft the left arm for possible hemodialysis. Family ended up bringing her to demurs department at [facility] where was seen and evaluated surprisingly found to have mildly elevated troponin with severe electrolyte imbalance with potassium of 2.1 only. Chest x-ray did not show any infection just atelectasis, COVID-19 was negative at the time. Patient was started on gentle hydration will be admitted to the hospital be seen nephrology and vascular, CK with troponin 3 will be done and patient will be seen cardiology further intervention after doing an echocardiogram will depend on the result. 05/26: Patient states that she is feeling better. No complaints or concerns. Plan is for patient to change from peritoneal dialysis to hemodialysis. Consult for nephrology and vascular surgery in place. Patient remains afebrile, heart rate 108, respirations 18, blood pressure 105/71 pulse ox 90% on room air. WC 10.8, hemoglobin 11.3, sodium 133, potassium 3.1, BUN 44, creatinine 5.15. 05/27, patient is currently nothing by mouth, for planned Port-A-Cath placement today, for the transfusion hemodialysis treatment, from a peritoneal dialysis regimen. Patient has dry mouth, no nausea no vomiting, no chest pain no shortness of breath, vitals are stable, 118/64, no fever, T-max of 97.0, heart rate is in the 70s. Pulse ox room air 98% REVIEW OF SYSTEMS Constitutional: No fever, no chills, no night sweats. significant weight change or generalized weakness fatigue lethargy daytime sleepiness EENT: No headache. No blurred vision or double vision, no loss of vision. No loss of Hearing, no ringing in the ears, no dizziness. No nasal drainage or congestion. No epistaxis. No sore throat. Lungs: No shortness of breath, cough, no sputum production. No wheezing. Cardiovascular: No chest pain, no lower extremity edema. No palpitations. No paroxysmal nocturnal dyspnea. No orthopnea. No lightheadedness or dizziness. No syncopal episodes. Abdominal: No abdominal pain. No nausea, vomiting. No diarrhea. No constipation. No bloody or tarry stools.. No loss of appetite. Genitourinary: decrease in urine output. Musculoskeletal: No myalgias. No muscle weakness, no gait dysfunction, no frequent falls. No back pain. No neck pain. Integumentary: No wounds, no lesions. No rash or pruritus. No unusual bruising. No change in hair or nails. Neurologic: developmental delay with generalized weakness fatigue and lethargy. Psychiatric: No depression. No anxiety. No mood swings. Endocrine: No abnormal blood sugars. No weight change. No excessive sweating or thirst. No cold intolerance. PHYSICAL EXAMINATION Gen: This is well-developed does not look in any respiratory distress. HEENT: Head is atraumatic, normocephalic. Pupils equal, round. Sclerae is anicteric. NECK: Supple. No JVD. No lymphadenopathy. No thyromegaly. LUNGS: decreased breath some bilaterally with rhonchi no crackles or wheezes. HEART: Regular rate and rhythm. No murmur. ABDOMEN: Soft. Bowel sounds are present. significant ascites the abdominal area with the PD With no sign of infection. EXTREMITIES: No pedal edema. No calf tenderness.scar on the left knee from previous surgery. NEUROLOGICAL: Patient is awake, alert and oriented with slight confusion. Cranial nerves 2 through 12 are grossly intact. ASSESSMENT AND PLAN 1.altered mental status: Clear etiology patient had severe dehydration s ignificant change on dialysis schedule and such can be the reason also patient might have secondary infection such as urinary tract infection her white blood cell was mildly elevated no urine was collected at the time. With element of elevated troponin with the possibility of non-ST WI can be another possibility. 2 elevated troponin and possible non-ST WI: CK with troponin 3 will be done, consult cardiology echocardiogram will be done based on the results decide on further management including if needed to do any intervention. 3 end-stage renal disease on CAPD currently patient apparently been tried to switch to hemodialysis consult nephrology will continue CAPD for now until her dialysis line is on board when patient can be switched to hemodialysis. 4 hypertension: Patient blood pressure has been slightly bit low she is using midodrine 10 mg 3 times a day. 5 hypothyroidism: Continue patient on levothyroxine 112 g daily. 6 hyperlipidemia: Has been on atorvastatin 10 mg a day. 7 chronic gout: Patient has been on Zyloprim 100 mg daily. 8 electrolyte imbalance with severe hypokalemia: Patient has been on Klor-Con 20 me daily we'll titrate dose up to 20 mg 3 times a day for now recheck potassium level replacement will be done. 9 chronic anemia: Has been on iron and Epogen. 10 infected left knee post surgery patient left knee is non-ambulatory currently she need help will consider physical therapy the patient therapy. 11 severe dehydration: Continue gentle hydration for now watch for any fluid overload. 12 GI prophylaxis: Patient be on Pepcid 20 mg daily. 13 DVT prophylaxis: Knee-high ANDRE hose and Venodyne boots if needed subcu heparin will be done. 12. COVID-19 testing.was negative. 15. Hypokalemia. Potassium chloride 10 mEq IV piggyback times 4, repeat BMP in the a.m. Patient will be admitted to the hospital for a minimum of 2 night stay. Discharge plan: To be determined Current Medications Allopurinol (Allopurinol 100 Mg Tab) 100 mg PO DAILY [facility] Last Admin: 05/27/21 10:03 Dose: 100 mg Documented by: Atorvastatin Calcium (Atorvastatin 10 Mg Tab) 10 mg PO HS [facility] Last Admin: 05/26/21 22:18 Dose: 10 mg Documented by: Famotidine (Famotidine 20 Mg Tab) 20 mg PO DAILY [facility] Last Admin: 05/27/21 10:03 Dose: 20 mg Documented by: Sodium Chloride (Saline 0.9%) 1,000 mls @ 75 mls/hr IV .[id number] [facility] Last Admin: 05/27/21 05:58 Dose: Not Given Documented by: Peritoneal Dialysis Solution (Delflex With 1.5% Dextrose (2,000 Ml)) 30 g in 2,000 mls @ 0 mls/hr INTRAPERIT Q6H [facility]; Protocol Last Admin: 05/27/21 10:38 Dose: 2,000 mls/hr Documented by: Levothyroxine Sodium (Levothyroxine 112 Mcg Tab) 112 mcg PO AC-BRKFST [facility] Last Admin: 05/27/21 06:14 Dose: 112 mcg Documented by: Magnesium Oxide (Magnesium Oxide 400 Mg Tab) 400 mg PO DAILY [facility] Last Admin: 05/27/21 10:03 Dose: 400 mg Documented by: Midodrine (Midodrine 5 Mg Tab) 10 mg PO AC-TID [facility] Last Admin: 05/27/21 04:10 Dose: 10 mg Documented by: Multivit/Ca Carb/B Cmplx/FA/Prenat (Folic Acid-Vit B Complex-Vit C 1 Cap) 1 each PO DAILY [facility] Last Admin: 05/27/21 10:03 Dose: 1 each Documented by: Naloxone HCl (Naloxone 0.4 Mg/Ml 1 Ml Vial) 0.2 mg IV Q2M PRN PRN Reason: Opioid Reversal Ondansetron HCl (Ondansetron Odt 8 Mg Tab.Rapdis) 8 mg PO Q8H PRN PRN Reason: Nausea Pantoprazole Sodium (Pantoprazole 40 Mg/10 Ml Vial) 40 mg IV DAILY [facility] Last Admin: 05/27/21 10:14 Dose: Not Given Documented by: Potassium Chloride (Potassium Chloride Er 20 Meq Tab.Er) 20 meq PO DAILY [facility] Last Admin: 05/27/21 10:03 Dose: 20 meq Documented by: Sertraline HCl (Sertraline 25 Mg Tab) 25 mg PO HS [facility] Last Admin: 05/26/21 22:18 Dose: 25 mg Documented by: Sevelamer Carbonate (Sevelamer 800 Mg Tab) 800 mg PO AC-TID [facility] Last Admin: 05/27/21 06:14 Dose: Not Given Documented by: Laboratory Results - Last 24 Hours 05/26/21 05/27/21 22:47 09:05 Sodium 132 L Potassium 3.4 L Chloride 101 Carbon Dioxide 21 L Anion Gap 10 BUN 39 H Creatinine 4.73 H Est GFR (CKD-EPI)AfAm 11 Est GFR (CKD-EPI)NonAf 10 Glucose 111 H Calcium 9.2 Phosphorus 4.1 Magnesium 2.0 Fluid Source Dialysate Fluid Color Yellow Fluid Appearance Cloudy Fluid RBC 20 Fluid Nucleated Cells 645 Fluid Polynuclear WBCs 96 Fluid Mononuclear WBCs 4 Vital Signs Temp 97.0 F L 05/27/21 12:00 Pulse 75 05/27/21 12:00 Resp 16 05/27/21 12:00 BP 116/64 05/27/21 12:00 Pulse Ox 97 05/27/21 12:00 Intake & Output 05/26/21 05/27/21 05/27/21 18:59 06:59 18:59 Intake Total 0 Output Total 0 Balance 0 Intake: Oral 0 Output: Urine 0 Other: Voiding Method Diaper Diaper Diaper Incontinent Incontinent Incontinent # Bowel Movements 1 1 3 Objective - Vital Signs Vital signs: Vital Signs Temp 97.0 F L 05/27/21 12:00 Pulse 75 05/27/21 12:00 Resp 16 05/27/21 12:00 BP 116/64 05/27/21 12:00 Pulse Ox 97 05/27/21 12:00 Intake & Output 05/26/21 05/27/21 05/27/21 18:59 06:59 18:59 Intake Total 0 Output Total 0 Balance 0 Intake: Oral 0 Output: Urine 0 Other: Voiding Method Diaper Diaper Diaper Incontinent Incontinent Incontinent # Bowel Movements 1 1 3 - Labs CBC & Chem 7: 05/26/21 10:26 05/27/21 09:05 Labs: Abnormal Lab Results - Last 24 Hours (Table) 05/27/21 Range/Units 09:05 Sodium 132 L (137-145) mmol/L Potassium 3.4 L (3.5-5.1) mmol/L Carbon Dioxide 21 L (22-30) mmol/L BUN 39 H (7-17) mg/dL Creatinine 4.73 H (0.52-1.04) mg/dL Glucose 111 H (74-99) mg/dL Microbiology - Last 24 Hours (Table) 05/26/21 22:47 Body Fluid Culture - Preliminary Dialysate
[2021-05-27] MEDS: PANTOPRAZOLE 40 MG TABLET PO SCH (18:01)
[2021-05-27] MEDS: SERTRALINE 25 MG TAB PO SCH (20:24)
[2021-05-27] MEDS: ATORVASTATIN 10 MG TAB PO SCH (20:24)
[2021-05-28] MEDS: DIALYSIS (PERIT 1.5%) 2,000 ML 30 G/2,000 ML BAG INTRAPERIT SCH ×4 (04:05→23:53)
[2021-05-28] MEDS: MIDODRINE 5 MG TAB PO SCH ×3 (06:32→17:44)
[2021-05-28] MEDS: PANTOPRAZOLE 40 MG TABLET PO SCH (06:32)
[2021-05-28] MEDS: LEVOTHYROXINE 112 MCG TAB PO SCH (06:33)
[2021-05-28] MEDS: SEVELAMER 800 MG TAB PO SCH ×3 (06:33→18:43)
[2021-05-28] MEDS: SODIUM CHLORIDE 0.9% 1,000 ML IV SCH ×2 (08:06→17:44)
[2021-05-28] MEDS: FOLIC ACID-VIT B COMPLEX-VIT C 1 CAP PO SCH (10:37)
--- NOTE | 2021-05-28 12:13 | P.PN ---
Subjective Patient is seen in follow-up for end-stage renal disease. She is maintained on peritoneal dialysis. Resting in bed. Blood pressure in the lower side. She is on room air. No abdominal pain. Vital signs are stable. Blood pressure in the lower side. HEENT: Head exam is unremarkable. LUNGS: Breath sounds decreased. HEART: Rate and Rhythm are regular. ABDOMEN: Soft, no distention. EXTREMITITES: No edema. Objective - Vital Signs Vital signs: Vital Signs Temp 96.8 F L 05/28/21 08:00 Pulse 62 05/28/21 08:00 Resp 16 05/28/21 08:00 BP 82/54 05/28/21 08:00 Pulse Ox 97 05/28/21 08:00 Intake & Output 05/27/21 05/28/21 05/28/21 18:59 06:59 18:59 Other: Voiding Method Diaper Diaper Incontinent Incontinent # Voids 0 # Bowel Movements 3 1 - Labs CBC & Chem 7: 05/26/21 10:26 05/27/21 09:05 Labs: Microbiology - Last 24 Hours (Table) 05/26/21 22:47 Gram Stain - Preliminary Dialysate Body Fluid Culture - Preliminary Group D Enterococcus Coagulase Negative Staph Assessment and Plan Plan: Assessment: 1. End-stage renal disease maintained on peritoneal dialysis. 2. Hypokalemia from poor intake and PD losses. Replaced. 3. Hypotension due to hypovolemia. On midodrine. 4. Chronic kidney disease mineral bone disease maintained on Renvela. Phosphorus level IV.1. 5. PD associated peritonitis with fluid culture positive for group D enterococcus. Plan: Maintain current PD exchanges - 2 L every 6 hours with 1.5% dextrose solution. Maintain normal saline at 75 mL an hour. Vascular surgery is consulted for Mediport insertion as unable to obtain blood work outpatient. Intraperitoneal vancomycin was ordered for 05/26/2021 - I do not see it given in the MAR. Discussed with the nurse who will call the pharmacy to confirm that it was given. If she did not receive it, I will give her dose of intraperitoneal vancomycin today. She will need 2-3 weeks of antibiotic therapy. Repeat dialysate cell count culture and Gram stain today.
[2021-05-28] MEDS ORDERED: LACTULOSE 20 GM/30 ML CUP PO ONE (12:25)
[2021-05-28] MEDS: FAMOTIDINE 20 MG TAB PO SCH (14:39)
[2021-05-28] MEDS ORDERED: HEPARIN SODIUM (1,000 UNIT/ML) 1,250 UNIT in DIALYSIS (PERITONL) DEX 1.5% 2,000 ML INTRAPERIT ONE (16:00)
--- NOTE | 2021-05-28 16:25 | P.PN ---
Subjective Progress Note Date: 05/28/21 HISTORY OF PRESENT ILLNESS 56-year-old female with developmental delay who had history of end-stage renal disease on peritoneal dialysis, history of hypertension, hyperlipidemia, h ypothyroidism who had an infected left knee late last year had surgery and ended up going to rehab for long time was home for the last few weeks when patient developed to have significant change mental status with decreased oral intake with worsening symptoms overall for the last few days have been having fatigue tiredness not been eating or drinking no now moving. Also her dialysis has been getting quite bit worse patient apparently will be switch to hemodialysis was told need workup for fistula graft the left arm for possible hemodialysis. Family ended up bringing her to demurs department at [facility] where was seen and evaluated surprisingly found to have mildly elevated troponin with severe electrolyte imbalance with potassium of 2.1 only. Chest x-ray did not show any infection just atelectasis, COVID-19 was negative at the time. Patient was started on gentle hydration will be admitted to the hospital be seen nephrology and vascular, CK with troponin 3 will be done and patient will be seen cardiology further intervention after doing an echocardiogram will depend on the result. 05/26: Patient states that she is feeling better. No complaints or concerns. Plan is for patient to change from peritoneal dialysis to hemodialysis. Consult for nephrology and vascular surgery in place. Patient remains afebrile, heart rate 108, respirations 18, blood pressure 105/71 pulse ox 90% on room air. WC 10.8, hemoglobin 11.3, sodium 133, potassium 3.1, BUN 44, creatinine 5.15. 05/27, patient is currently nothing by mouth, for planned Port-A-Cath placement today, for the transfusion hemodialysis treatment, from a peritoneal dialysis regimen. Patient has dry mouth, no nausea no vomiting, no chest pain no shortness of breath, vitals are stable, 118/64, no fever, T-max of 97.0, heart rate is in the 70s. Pulse ox room air 98% 05/28: Patient is seen today on the cardiac stepdown unit. She is receiving intraperitoneal antibiotics. Patient is receiving regular CAPD managed by nephrology. Nephrology is planning on 2-3 weeks of antibiotic therapy. Tonsils been added for Dr. Doran 8. REVIEW OF SYSTEMS Constitutional: No fever, no chills, no night sweats. significant weight change or generalized weakness fatigue lethargy daytime sleepiness EENT: No headache. No blurred vision or double vision, no loss of vision. No loss of Hearing, no ringing in the ears, no dizziness. No nasal drainage or congestion. No epistaxis. No sore throat. Lungs: No shortness of breath, cough, no sputum production. No wheezing. Cardiovascular: No chest pain, no lower extremity edema. No palpitations. No paroxysmal nocturnal dyspnea. No orthopnea. No lightheadedness or dizziness. No syncopal episodes. Abdominal: No abdominal pain. No nausea, vomiting. No diarrhea. No constipation. No bloody or tarry stools.. No loss of appetite. Genitourinary: decrease in urine output. Musculoskeletal: No myalgias. No muscle weakness, no gait dysfunction, no frequent falls. No back pain. No neck pain. Integumentary: No wounds, no lesions. No rash or pruritus. No unusual bruising. No change in hair or nails. Neurologic: developmental delay with generalized weakness fatigue and lethargy. Psychiatric: No depression. No anxiety. No mood swings. Endocrine: No abnormal blood sugars. No weight change. No excessive sweating or thirst. No cold intolerance. PHYSICAL EXAMINATION Gen: This is well-developed does not look in any respiratory distress. HEENT: Head is atraumatic, normocephalic. Pupils equal, round. Sclerae is anicteric. NECK: Supple. No JVD. No lymphadenopathy. No thyromegaly. LUNGS: decreased breath some bilaterally with rhonchi no crackles or wheezes. HEART: Regular rate and rhythm. No murmur. ABDOMEN: Soft. Bowel sounds are present. significant ascites the abdominal area with the PD With no sign of infection. EXTREMITIES: No pedal edema. No calf tenderness.scar on the left knee from previous surgery. NEUROLOGICAL: Patient is awake, alert and oriented to person and place with slight confusion. ASSESSMENT AND PLAN 1.metabolic encephalopathy secondary to PD associated peritonitis. Patient is to continue CAPD antibiotics, consult with Dr. Randhawa added. 2 elevated troponin and possible non-ST IN: CK with troponin 3 will be done, consult cardiology echocardiogram will be done based on the results decide on further management including if needed to do any intervention. 3 end-stage renal disease on CAPD currently patient apparently been tried to s witch to hemodialysis consult nephrology will continue CAPD for now until her dialysis line is on board when patient can be switched to hemodialysis. 4 hypertension: Patient blood pressure has been slightly bit low she is using midodrine 10 mg 3 times a day. 5 hypothyroidism: Continue patient on levothyroxine 112 g daily. 6 hyperlipidemia: Has been on atorvastatin 10 mg a day. 7 chronic gout: Patient has been on Zyloprim 100 mg daily. 8 electrolyte imbalance with severe hypokalemia: Patient has been on Klor-Con 20 me daily we'll titrate dose up to 20 mg 3 times a day for now recheck potassium level replacement will be done. 9 chronic anemia: Has been on iron and Epogen. 10 infected left knee post surgery patient left knee is non-ambulatory currently she need help will consider physical therapy the patient therapy. 11 severe dehydration: Continue gentle hydration for now watch for any fluid overload. 12 GI prophylaxis: Patient be on Pepcid 20 mg daily. 13 DVT prophylaxis: Knee-high ANDRE hose and Venodyne boots if needed subcu heparin will be done. 12. COVID-19 testing.was negative. 15. Hypokalemia. Potassium chloride 10 mEq IV piggyback times 4, repeat BMP in the a.m. Discharge plan:Home with [facility] and plan of care have been directed as dictated by the signing physician. Kianna Don nurse practitioner acting as scribe for signing physician. Objective - Vital Signs Vital signs: Vital Signs Temp 96.8 F L 05/28/21 08:00 Pulse 62 05/28/21 08:00 Resp 16 05/28/21 08:00 BP 82/54 05/28/21 08:00 Pulse Ox 97 05/28/21 08:00 Intake & Output 05/27/21 05/28/21 05/28/21 18:59 06:59 18:59 Output Total 1 Balance -1 Output: Urine 1 Other: Voiding Method Diaper Diaper Incontinent Incontinent # Voids 0 # Bowel Movements 3 1 1 - Labs CBC & Chem 7: 05/26/21 10:26 05/27/21 09:05 Labs: Microbiology - Last 24 Hours (Table) 05/26/21 22:47 Gram Stain - Preliminary Dialysate Body Fluid Culture - Preliminary Group D Enterococcus Coagulase Negative Staph
[2021-05-28] MEDS: allopurinoL 100 MG TAB PO SCH (17:43)
[2021-05-28] MEDS: POTASSIUM CHLORIDE ER 20 MEQ TAB.ER PO SCH (17:44)
[2021-05-28] MEDS: MAGNESIUM OXIDE 400 MG TAB PO SCH (17:44)
[2021-05-28] MEDS: SERTRALINE 25 MG TAB PO SCH (21:46)
[2021-05-28] MEDS: ATORVASTATIN 10 MG TAB PO SCH (21:46)
[2021-05-28] MEDS ORDERED: SODIUM CHLORIDE 0.9% 500 ML 500 ML IV ONE (22:11)
[2021-05-28 22:15] LABS: Appearance,BF Cloudy; Color,BF Yellow
[2021-05-28 22:43] LABS: Nucleated Cells, Body Fluid 1175 /uL; RBC, Body Fluid 25 /uL
[2021-05-28 23:14] LABS: Mononuclear WBC,Body Fluid 3 %; Polynuclear WBC,Body Fluid 97 %; Total Cells Counted,Body Fluid 100
--- NOTE | 2021-05-28 23:45 | P.CONS ---
History of Present Illness - Reason for Consult Consult date: 05/28/21 infected peritoneal fluid Requesting physician: Sana Otero - Chief Complaint abd pain and vomiting x few days - History of Present Illness History of present illness : Patient is 56-year female with a past medical history significant for end-stage renal disease on peritoneal dialysis patient presenting to the ER on May 25, 2021 for evaluation of decreased oral intake did have a few episodes of vomiting and decreased oral intake for a week before presentation to the hospital did have intermittent diarrhea and constipation on presentation to the hospital the patient was afebrile and no fever and recorded subsequently patient had white count of 14.2 patient did have a peritoneal fluid obtained which was cloudy with 645 WBC culture not showing group due to coccus and COVID is negative staph patient has received a dose of vancomycin intraperitoneally on 05/26/2021 infectious disease was consulted for further management of antibiotic therapy, patient is complaining of some abdominal pain unfortunately she not been able to quantify it any further abraham melissa no further no vomiting and denies any chest pain shortness of breath or cough Review of system: CONSTITUTIONAL: Positive for weakness denies high-grade fever. EYES: No complaint. ENT: No complaint. RESPIRATORY: No complaint. CARDIOVASCULAR: No complaint. GENITOURINARY: No complaint. GASTROINTESTINAL: As per history of present illness. MUSCULOSKELETAL: No complaint. INTEGUMENTARY: No complaint. PSYCHOLOGIC: No complaint. ENDOCRINE: No complaint. NEUROLOGIC: No complaint. Past medical history : Reviewed, documented below Past surgical history : Reviewed, documented below Social history: Reviewed, documented below Medications: Reviewed, as documented below EXAMINATION: Vital sigans= Reviewed and documented below GENERAL DESCRIPTION: Middle-aged female lying in bed, no distress. No tachypnea or accessory muscle of respiration use. HEENT: Shows Pallor , no scleral icterus. Oral mucous membrane is dry. NECK: Trachea central, no thyromegaly. LUNGS: Unlabored breathing. Clear to auscultation anteriorly. No wheeze or crackle. HEART: S1, S2, regular rate and rhythm. ABDOMEN: Soft mild tenderness no significant swelling or redness around the PD catheter site EXTREMITIES: No edema of feet. SKIN: No rash, no masses palpable. NEUROLOGICAL: The patient is awake, alert, oriented x2, mood and affect normal. LABS AND RADIOLOGY: Reviewed results see below Assessment : Patient presented to hospital with weakness nausea and vomiting in this patient noticed to have significantly cloudy peritoneal fluid, patient with history of end-stage renal disease on peritoneal dialysis now with the peritoneal fluid showing a coagulase-negative staph and Enterococcus with final sensitivities pending Plan: 1-patient has received vancomycin intraperitoneally to continued per pharmacy dosing, 2-we will obtain blood cultures and inflammatory markers 3-the need to remove dialysis catheter will depend upon the final sensitivity of this pathogen We will follow on clinical condition and cultures to further adjust medication if needed Thank you for this consultation we will follow the patient along with you Past Medical History Past Medical History: Hyperlipidemia, Hypertension, Renal Disease, Thyroid Disorder Additional Past Medical History / Comment(s): developmentally delayed, ESRD with nightly peritoneal dialysis, anemia, mineral bone disease, reverse deep palate/ some speech issues, swelling legs and ankles, hx of fx rt leg, hypothyroid, degenerative joint disease. History of Any Multi-Drug Resistant Organisms: None Reported Past Surgical History: Ear Surgery, Joint Replacement Additional Past Surgical History / Comment(s): 09/25/20 total L knee arthroplasty, 09/30/20 permacath R chest, 01/13/20 peritoneal dialysis catheter, s eptoplasty, bilateral myringotomy/tubes, oral surgery, Past Anesthesia/Blood Transfusion Reactions: Family History of Problems w/ Anesthesia Additional Past Anesthesia/Blood Transfusion Reaction / Comm: mom-ponv Past Psychological History: No Psychological Hx Reported Smoking Status: Never smoker Past Alcohol Use History: None Reported Past Drug Use History: None Reported - Past Family History Father Family Medical History: Cancer Additional Family Medical History / Comment(s): Father of esophageal cancer. Mother Family Medical History: Cancer, Hyperlipidemia, Hypertension, Osteoarthritis (OA) Additional Family Medical History / Comment(s): Tip of R index finger cancer/amputated. Medications and Allergies Home Medications Medication Instructions Recorded Confirmed Type Levothyroxine Sodium [Synthroid] 112 mcg PO AC-BRKFST 01/10/20 05/25/21 History allopurinoL [Zyloprim] 100 mg PO DAILY 10/16/20 05/25/21 History Atorvastatin [Lipitor] 10 mg PO HS 10/31/20 05/25/21 History Sevelamer [Renvela] 800 mg PO AC-TID 01/11/21 05/25/21 History Epoetin Felipe [Epogen] 20,000 unit SQ Q7D 05/25/21 05/25/21 History Famotidine [Pepcid] 20 mg PO DAILY 05/25/21 05/25/21 History Gentamicin Sulfate [Gentamicin 1 applic TOPICAL DAILY PRN 05/25/21 05/25/21 History Sulfate 0.1%] Magnesium Oxide [Evans] 500 mg PO DAILY 05/25/21 05/25/21 History Midodrine HCl [ProAmatine] 10 mg PO AC-TID 05/25/21 05/25/21 History Ondansetron Odt [Zofran Odt] 8 mg PO Q8H PRN 05/25/21 05/25/21 History Potassium Chloride ER [K-Dur 20] 20 meq PO DAILY 05/25/21 05/25/21 History Danna-Tino 1 tab PO DAILY 05/25/21 05/25/21 History Sertraline [Zoloft] 25 mg PO HS 05/25/21 05/25/21 History Allergies Allergy/AdvReac Type Severity Reaction Status Date / Time lisinopril Allergy Unknown Verified 05/25/21 18:30 Physical Exam Vitals: Vital Signs Temp Pulse Pulse Resp BP BP BP 05/28/21 21:56 78/60 05/28/21 21:35 97.1 F L 67 18 66/46 81/53 05/28/21 16:00 96.9 F L 70 16 102/58 05/28/21 14:00 72 16 05/28/21 12:00 96.9 F L 72 16 96/54 05/28/21 08:00 96.8 F L 62 16 82/54 05/28/21 05:03 97.1 F L 85 18 85/62 05/28/21 04:00 80 16 82/56 05/27/21 23:53 88 16 87/60 Pulse Ox 05/28/21 21:56 05/28/21 21:35 97 05/28/21 16:00 94 L 05/28/21 14:00 05/28/21 12:00 96 05/28/21 08:00 97 05/28/21 05:03 94 L 05/28/21 04:00 96 05/27/21 23:53 98 Intake and Output 05/28/21 05/28/21 05/29/21 14:59 22:59 06:59 Output Total 1 Balance -1 Output: Urine 1 Other: Voiding Method Diaper Incontinent # Bowel Movements 1 Results CBC & Chem 7: 05/26/21 10:26 05/27/21 09:05 Labs: Microbiology - Last 24 Hours (Table) 05/26/21 22:47 Gram Stain - Preliminary Dialysate Body Fluid Culture - Preliminary Group D Enterococcus Coagulase Negative Staph
[2021-05-29] MEDS ORDERED: MIDODRINE 5 MG TAB PO STA (01:03)
[2021-05-29] MEDS: DIALYSIS (PERIT 1.5%) 2,000 ML 30 G/2,000 ML BAG INTRAPERIT SCH ×4 (05:08→21:59)
[2021-05-29] MEDS ORDERED: SODIUM CHLORIDE 0.9% 500 ML 500 ML IV ONE (05:50)
[2021-05-29] MEDS: SEVELAMER 800 MG TAB PO SCH ×3 (05:59→17:34)
[2021-05-29] MEDS: LEVOTHYROXINE 112 MCG TAB PO SCH (05:59)
[2021-05-29] MEDS: PANTOPRAZOLE 40 MG TABLET PO SCH (05:59)
[2021-05-29] MEDS: MIDODRINE 5 MG TAB PO SCH ×3 (05:59→17:34)
[2021-05-29] MEDS: SODIUM CHLORIDE 0.9% 1,000 ML IV SCH ×3 (06:09→17:35)
[2021-05-29] MEDS ORDERED: SODIUM CHLORIDE 0.9% 1,000 ML IV ONE (08:50)
[2021-05-29 09:00] LABS: Calcium 8.5 mg/dL (8.4-10.2); Magnesium 1.7 mg/dL (1.6-2.3)
[2021-05-29 09:46] LABS: C Reactive Protein 7.4 mg/dL (<1.0)
[2021-05-29] MEDS ORDERED: SODIUM CHLORIDE 0.9% 250 ML IV ONE (10:45)
--- NOTE | 2021-05-29 12:38 | P.PN ---
Subjective Progress Note Date: 05/29/21 HISTORY OF PRESENT ILLNESS 56-year-old female with developmental delay who had history of end-stage renal disease on peritoneal dialysis, history of hypertension, hyperlipidemia, h ypothyroidism who had an infected left knee late last year had surgery and ended up going to rehab for long time was home for the last few weeks when patient developed to have significant change mental status with decreased oral intake with worsening symptoms overall for the last few days have been having fatigue tiredness not been eating or drinking no now moving. Also her dialysis has been getting quite bit worse patient apparently will be switch to hemodialysis was told need workup for fistula graft the left arm for possible hemodialysis. Family ended up bringing her to demurs department at [facility] where was seen and evaluated surprisingly found to have mildly elevated troponin with severe electrolyte imbalance with potassium of 2.1 only. Chest x-ray did not show any infection just atelectasis, COVID-19 was negative at the time. Patient was started on gentle hydration will be admitted to the hospital be seen nephrology and vascular, CK with troponin 3 will be done and patient will be seen cardiology further intervention after doing an echocardiogram will depend on the result. 05/26: Patient states that she is feeling better. No complaints or concerns. Plan is for patient to change from peritoneal dialysis to hemodialysis. Consult for nephrology and vascular surgery in place. Patient remains afebrile, heart rate 108, respirations 18, blood pressure 105/71 pulse ox 90% on room air. WC 10.8, hemoglobin 11.3, sodium 133, potassium 3.1, BUN 44, creatinine 5.15. 05/27, patient is currently nothing by mouth, for planned Port-A-Cath placement today, for the transfusion hemodialysis treatment, from a peritoneal dialysis regimen. Patient has dry mouth, no nausea no vomiting, no chest pain no shortness of breath, vitals are stable, 118/64, no fever, T-max of 97.0, heart rate is in the 70s. Pulse ox room air 98% 05/28: Patient is seen today on the cardiac stepdown unit. She is receiving intraperitoneal antibiotics. Patient is receiving regular CAPD managed by nephrology. Nephrology is planning on 2-3 weeks of antibiotic therapy. Tonsils been added for Dr. Doran 8. 05/29: Throughout the night, blood pressure was low down to 68/50, CAPD was held, patient received 500 mL bolus last evening a repeat this morning and we are ordering another 250 ML's now. Blood pressure has recovered somewhat at 90/60. Cortisol level was ordered and patient will be started on hydrocortisone 100 mg IV every 8 hours. Ensure clear and beneprotein added. Sodium was 132, potassium 3.0 will be replaced, BUN 33 creatinine 4.34, blood sugar 107. The plan to transfer patient to ICU but at this point, hold any transfer and continue current treatment. Dr. Randhawa has seen and reviewed patient, blood cultures and inflammatory markers pending. REVIEW OF SYSTEMS Constitutional: No fever, no chills, no night sweats. significant weight change or generalized weakness fatigue lethargy daytime sleepiness EENT: No headache. No blurred vision or double vision, no loss of vision. No loss of Hearing, no ringing in the ears, no dizziness. No nasal drainage or congestion. No epistaxis. No sore throat. Lungs: No shortness of breath, cough, no sputum production. No wheezing. Cardiovascular: No chest pain, no lower extremity edema. No palpitations. No paroxysmal nocturnal dyspnea. No orthopnea. No lightheadedness or dizziness. No syncopal episodes. Abdominal: No abdominal pain. No nausea, vomiting. No diarrhea. No constipat ion. No bloody or tarry stools.. No loss of appetite. Genitourinary: decrease in urine output. Musculoskeletal: No myalgias. No muscle weakness, no gait dysfunction, no frequent falls. No back pain. No neck pain. Integumentary: No wounds, no lesions. No rash or pruritus. No unusual bruising. No change in hair or nails. Neurologic: developmental delay with generalized weakness fatigue and lethargy. Psychiatric: No depression. No anxiety. No mood swings. Endocrine: No abnormal blood sugars. No weight change. PHYSICAL EXAMINATION Gen: This is well-developed does not look in any respiratory distress. HEENT: Head is atraumatic, normocephalic. Pupils equal, round. Sclerae is anicteric. NECK: Supple. No JVD. No lymphadenopathy. No thyromegaly. LUNGS: decreased breath some bilaterally with rhonchi no crackles or wheezes. HEART: Regular rate and rhythm. No murmur. ABDOMEN: Soft. Bowel sounds are present. significant ascites the abdominal area with the PD With no sign of infection. EXTREMITIES: No pedal edema. No calf tenderness. scar on the left knee from previous surgery. NEUROLOGICAL: Patient is awake, alert and oriented to person and place with slight confusion. ASSESSMENT AND PLAN 1.metabolic encephalopathy secondary to PD associated peritonitis. Patient is to continue CAPD antibiotics, consult with Dr. Edis lawson. 2 elevated troponin and possible non-ST SD: CK with troponin 3 will be done, consult cardiology echocardiogram will be done based on the results decide on further management including if needed to do any intervention. 3 end-stage renal disease on CAPD currently patient apparently been tried to switch to hemodialysis consult nephrology will continue CAPD for now until her dialysis line is on board when patient can be switched to hemodialysis. 4 hypertension: Patient blood pressure has been slightly bit low she is using midodrine 10 mg 3 times a day. 5 hypothyroidism: Continue patient on levothyroxine 112 g daily. 6 hyperlipidemia: Has been on atorvastatin 10 mg a day. 7 chronic gout: Patient has been on Zyloprim 100 mg daily. 8 electrolyte imbalance with severe hypokalemia: Patient has been on Klor-Con 20 me daily we'll titrate dose up to 20 mg 3 times a day for now recheck potassium level replacement will be done. 9 chronic anemia: Has been on iron and Epogen. 10 infected left knee post surgery patient left knee is non-ambulatory currently she need help will consider physical therapy the patient therapy. 11 severe dehydration: Continue gentle hydration for now watch for any fluid overload. 12 GI prophylaxis: Patient be on Pepcid 20 mg daily. 13 DVT prophylaxis: Knee-high ANDRE hose and Venodyne boots if needed subcu heparin will be done. 14. COVID-19 testing.was negative. 15. Hypokalemia. Potassium chloride 10 mEq IV piggyback times 4, repeat BMP in the a.m. 16. Hypovolemic shock it is post multiple fluid boluses, continue to hold CAPD as advised by nephrology, Solu-Cortef 100 mg IV every 8 hours has been added, Ensure and beneprotein added. No need to transfer to ICU at this point. Discharge plan:Home with [facility] and plan of care have been directed as dictated by the signing physician. Kianna Don nurse practitioner acting as scribe for signing physician. Objective - Vital Signs Vital signs: Vital Signs Temp 98.1 F 01/12/22 08:00 Pulse 88 05/29/21 09:54 Resp 17 05/29/21 08:00 BP 88/57 05/29/21 09:54 Pulse Ox 96 05/29/21 08:00 Intake & Output 05/28/21 05/29/21 05/29/21 18:59 06:59 18:59 Intake Total 100 Output Total 1 Balance -1 100 Intake: Oral 100 Output: Urine 1 Other: Voiding Method Diaper Diaper Incontinent Incontinent # Bowel Movements 1 1 - Labs CBC & Chem 7: 05/26/21 10:26 05/29/21 08:26 Labs: Abnormal Lab Results - Last 24 Hours (Table) 05/29/21 Range/Units 08:26 Sodium 132 L (137-145) mmol/L Potassium 3.0 L (3.5-5.1) mmol/L BUN 33 H (7-17) mg/dL Creatinine 4.34 H (0.52-1.04) mg/dL Glucose 107 H (74-99) mg/dL C-Reactive Protein 7.4 H (<1.0) mg/dL Microbiology - Last 24 Hours (Table) 05/28/21 12:12 Gram Stain - Preliminary Peritoneal Fluid Body Fluid Culture - Preliminary 05/26/21 22:47 Gram Stain - Preliminary Dialysate Body Fluid Culture - Preliminary Group D Enterococcus Coagulase Negative Staph
[2021-05-29] MEDS: HYDROCORTISONE SUCCINATE 100 MG/2 ML VIAL IV SCH ×2 (14:08→21:11)
[2021-05-29] MEDS: POTASSIUM CHLORIDE ER 20 MEQ TAB.ER PO SCH (14:11)
[2021-05-29] MEDS: MAGNESIUM OXIDE 400 MG TAB PO SCH (14:11)
[2021-05-29] MEDS: FOLIC ACID-VIT B COMPLEX-VIT C 1 CAP PO SCH (14:30)
[2021-05-29] MEDS: allopurinoL 100 MG TAB PO SCH (14:30)
[2021-05-29] MEDS: FAMOTIDINE 20 MG TAB PO SCH (14:30)
--- NOTE | 2021-05-29 15:10 | CDI ---
Documentation Clarification Form Date: 05/29/2021 02:52:25 PM From: Octavia Ramsey RN CCDS Admit Date: 05/25/2021 05:29:00 PM Patient Name: Isis Edwards Visit Number: [id number] Discharge Date: ATTENTION: The Clinical Documentation Specialists (CDI) and [facility] Coding Staff appreciate your assistance in clarifying documentation. Please respond to the clarification below the line at the bottom and electronically sign. The CDI & [facility] Coding staff will review the response and follow-up if needed. Please note: Queries are made part of the Legal Health Record. If you have any questions, please contact the author of this message via ITS. Dr. Sana Otero The patient presented with the following clinical indicators. Additional clarification regarding the etiology/cause of the clinical indicators is requested. History/Risk Factors: 56-year-old female presents to the ED with decreased oral intake, vomiting and intermittent diarrhea. Medical History: ESRD with peritoneal dialysis. 05/25, H&P Clinical Indicators: WBC: 05/25 14.2 Neutrophils: 05/25 11.9 Lactic acid: 2.7 Dialysate Culture: Enterococcus faecalis, Staphylococcus epidermidis Vitals signs: 05/25 B/P 89/61; HR 97; Temp 98.6F Oral; RR 18; SpO2 96% room air Nephrology progress note 05/27: Patient is being treated for underlying PD peritonitis. Treatment: ID Consult:05/28 significant cloudy peritoneal fluid. Peritoneal fluid showing a coagulase negative staph and enterococcus. Antibiotics: 05/26 05/27 Vancomycin hcl 1,250mg/ Ceftazidime 1.25gm in Peritoneal dialysis IV Bolus: 05/25 0.9 NS 1L bolus In your professional opinion, please clarify if these findings signify one of the following conditions: [ ] Sepsis POA [ ] Sepsis, Not POA [ ] Sepsis ruled out [ ] Septic Shock [ ] Other, please specify [ ] Unable to determine SIRS Criteria: 2 or more of the following may indicate SIRS -Temperature < 96.8F (36C) or > 101.0F (38.3C) -Heart Rate > 90 bpm -Respiratory Rate > 20 breaths/min or PaCO2 < 32 mmHg -White Blood Cell Count > 12,000 or < 4,000 cells/mm3 or > 10% bands Medicine progress note 06/04 hypotension, most likely secondary to sepsis and septic shock. Dr. Otero (Template Last Reviewed: June 2020) SHREE
--- NOTE | 2021-05-29 15:32 | CDI ---
Documentation Clarification Form Date: 05/29/2021 03:11:54 PM From: Octavia Ramsey RN CCDS Admit Date: 05/25/2021 05:29:00 PM Patient Name: Isis Edwards Visit Number: [id number] Discharge Date: ATTENTION: The Clinical Documentation Specialists (CDI) and [facility] Coding Staff appreciate your assistance in clarifying documentation. Please respond to the clarification below the line at the bottom and electronically sign. The CDI & [facility] Coding staff will review the response and follow-up if needed. Please note: Queries are made part of the Legal Health Record. If you have any questions, please contact the author of this message via ITS. Dr. Sana Otero Possible non-ST MO is documented H&P, 05/25 and Medicine Progress notes 05/26- 05/29. Additional clarification is requested. History/Risk Factors: 56-year-old female presents to the ED with decreased oral intake, vomiting and intermittent diarrhea. Medical History: ESRD with peritoneal dialysis. 05/25, H&P Clinical indicators: H&P 05/25 and Medicine progress notes 05/26 thru 05/29 Elevated Troponin and possible non-ST MO Troponin Levels: 05/25 0.163; 0.160 Treatment: Peritoneal Dialysis 05/25; 05/26 and 05/27 - Dialysis with Vancomycin hcl 1,250mg/ Ceftazidime 1.25gm on 05/26 and 05/27; 05/25 0.9 NS 1L bolus Is there an additional diagnosis and/or clinical significance related to the above lab result/information? [ ] NSTEMI POA [ ] Type II MO POA due to (please specify ) [ ] NSTEMI Ruled Out [ ] Other, please specify [ ] Unable to determine Medicine progress note 06/05 elevated troponin and possible non ST MO ruled out by cardiology . Dr Castanon (Template Last Reviewed: February 2021) SHREE
--- NOTE | 2021-05-29 16:12 | PN ---
PROGRESS NOTE Patient is seen for followup for end-stage renal disease. She is currently maintained on peritoneal dialysis. The patient's blood pressure has been low, as low as 70s. Yesterday she has received IV fluid boluses. This morning she is around 80-90 mmHg systolic. There was some trouble noted with the peritoneal dialysis yesterday. However, no further events were noted with dialysis last night. It is noted that the cell count has increased in the PD fluid from 645 on 05/26/2021 to 1175 on 05/28/2021. I will repeat cell count today and if it is continuously rising, patient will need removal of her PD catheter. EXAMINATION: Today patient is comfortable. Blood pressure 96/66, heart rate 64 per minute. She is afebrile. Examination of the heart S1, S2. Examination of the lungs, decreased breath sounds at the bases. Abdomen is soft, nontender. Examination of lower extremities shows no significant edema. LAB: Show sodium 132, potassium 3.0, chloride 102, BUN 33, creatinine 4.3. ASSESSMENT: 1. End stage renal disease, on peritoneal dialysis with the PD fluid growing Enterococcus faecalis. The PD fluid cell count has been increasing, which suggests that the infection is not controlled and patient will likely need removal of the PD catheter especially if she has been hypotensive. I will hold off on MediPort placement on the right side as the patient will likely need an IJ PermCath placed instead for switching to hemodialysis. 2. Hypokalemia, status post replacement. PLAN: Repeat PD fluid cell count. Give fluid bolus. If the cell count is increasing, we will remove PD catheter. Continue with the midodrine. MMODL / IJN: [id number] /
--- NOTE | 2021-05-29 17:46 | P.CNPUL ---
History of Present Illness Consult date: 05/29/21 Chief complaint: Hypotension/sepsis History of present illness: I was asked to evaluate this 56-year-old here patient for possible ICU transfer. The patient was found to be quite hypotensive this morning with a systolic blood pressure dropping in the mid 60s. The patient is septic. The patient has been diagnosed having a peritonitis. The patient has an incisional disease and the patient has been receiving peritoneal dialysis on outpatient basis. The patient has a peritoneal dialysis catheter in place. The patient came into the hospital because of diminished oral intake, generalized weakness and fatigue and some altered mentation. She was also having intermittent diarrhea and dehydration prior to hospital admission. The patient was initially taken to [facility]. Following that she was admitted to our hospital for further care. The peritoneal fluid was aspirated and this causes for infection. There peritoneal fluid cultures positive for Enterococcus faecalis and staph epidermidis. The patient was given written drop peritoneal vancomycin. The family has noted that the fluid characteristics from the peritoneal fluid has change. There was a concern for infection also by the family. They catheter exit site shows some mild erythema. No purulent discharge from the catheter site. Blood cultures were sent. ID has been consulted. Hemodynamically, the patient was hypotensive. The patient was given IV fluids and currently systolic blood pressures the mid 80s without any significant tachycardia. The patient is arousable. She is developmentally delayed and she cannot hold a conversation. She is nonambulatory. She has an antibiotic spacer in her left knee joint for an underlying staphylococcal infection. This was done by orthopedic surgery at [facility]. The blood work from today was noted. The patient has a BUN of 33 with a creatinine of 4.3. Potassium level is at 3.0 and the sodium level isn't 132. The patient had his troponin of 0.163 respectively. The patient was echo wasn't 14.2 with a hemoglobin of 12.5 and a platelet count of 320. Note that the patient was given several fluid boluses today. The patient received a total of 2 L bolus and later she was given another 250 mL. She was also given another liter bolus yesterday by nephrology. The patient is also on midodrine for blood pressure support. Review of Systems Constitutional: No fever, no chills, no night sweats. significant weight change or generalized weakness fatigue lethargy daytime sleepiness EENT: No headache. No blurred vision or double vision, no loss of vision. No loss of Hearing, no ringing in the ears, no dizziness. No nasal drainage or congestion. No epistaxis. No sore throat. Lungs: No shortness of breath, cough, no sputum production. No wheezing. Cardiovascular: No chest pain, no lower extremity edema. No palpitations. No paroxysmal nocturnal dyspnea. No orthopnea. No lightheadedness or dizziness. No syncopal episodes. Abdominal: No abdominal pain. No nausea, vomiting. No diarrhea. No constipation. No bloody or tarry stools.. No loss of appetite. Genitourinary: decrease in urine output. Musculoskeletal: No myalgias. No muscle weakness, no gait dysfunction, no frequent falls. No back pain. No neck pain. Integumentary: No wounds, no lesions. No rash or pruritus. No unusual bruising. No change in hair or nails. Neurologic: developmental delay with generalized weakness fatigue and lethargy. Psychiatric: No depression. No anxiety. No mood swings. Endocrine: No abnormal blood sugars. No weight change. No excessive sweating or thirst. No cold intolerance. Past Medical History Past Medical History: Hyperlipidemia, Hypertension, Renal Disease, Thyroid Disorder Additional Past Medical History / Comment(s): developmentally delayed, ESRD with nightly peritoneal dialysis, anemia, mineral bone disease, reverse deep palate/ some speech issues, swelling legs and ankles, hx of fx rt leg, hypothyroid, degenerative joint disease. History of Any Multi-Drug Resistant Organisms: None Reported Past Surgical History: Ear Surgery, Joint Replacement Additional Past Surgical History / Comment(s): 09/25/20 total L knee arthroplasty, 09/30/20 permacath R chest, 01/13/20 peritoneal dialysis catheter, septoplasty, bilateral myringotomy/tubes, oral surgery, Past Anesthesia/Blood Transfusion Reactions: Family History of Problems w/ A nesthesia Additional Past Anesthesia/Blood Transfusion Reaction / Comment(s): mom-ponv Past Psychological History: No Psychological Hx Reported Smoking Status: Never smoker Past Alcohol Use History: None Reported Past Drug Use History: None Reported - Past Family History Father Family Medical History: Cancer Additional Family Medical History / Comment(s): Father of esophageal cancer. Mother Family Medical History: Cancer, Hyperlipidemia, Hypertension, Osteoarthritis (OA) Additional Family Medical History / Comment(s): Tip of R index finger cancer/amputated. Medications and Allergies Home Medications Medication Instructions Recorded Confirmed Type Levothyroxine Sodium [Synthroid] 112 mcg PO AC-BRKFST 01/10/20 05/25/21 History allopurinoL [Zyloprim] 100 mg PO DAILY 10/16/20 05/25/21 History Atorvastatin [Lipitor] 10 mg PO HS 10/31/20 05/25/21 History Sevelamer [Renvela] 800 mg PO AC-TID 01/11/21 05/25/21 History Epoetin Felipe [Epogen] 20,000 unit SQ Q7D 05/25/21 05/25/21 History Famotidine [Pepcid] 20 mg PO DAILY 05/25/21 05/25/21 History Gentamicin Sulfate [Gentamicin 1 applic TOPICAL DAILY PRN 05/25/21 05/25/21 History Sulfate 0.1%] Magnesium Oxide [Evans] 500 mg PO DAILY 05/25/21 05/25/21 History Midodrine HCl [ProAmatine] 10 mg PO AC-TID 05/25/21 05/25/21 History Ondansetron Odt [Zofran Odt] 8 mg PO Q8H PRN 05/25/21 05/25/21 History Potassium Chloride ER [K-Dur 20] 20 meq PO DAILY 05/25/21 05/25/21 History Danna-Tino 1 tab PO DAILY 05/25/21 05/25/21 History Sertraline [Zoloft] 25 mg PO HS 05/25/21 05/25/21 History Allergies Allergy/AdvReac Type Severity Reaction Status Date / Time lisinopril Allergy Unknown Verified 05/25/21 18:30 Physical Exam Vitals: Vital Signs Temp Pulse Pulse Resp BP BP BP 05/29/21 17:33 98.2 F 97 17 88/60 05/29/21 16:41 17 86/53 05/29/21 16:00 97.3 F L 79 17 84/55 05/29/21 14:46 75/51 05/29/21 14:20 96/66 05/29/21 14:00 79 17 05/29/21 13:53 98.1 F 64 17 82/56 05/29/21 10:30 90/63 05/29/21 09:54 88 88/57 05/29/21 09:28 84/59 05/29/21 09:01 75/55 05/29/21 08:56 102 H 77/53 05/29/21 08:34 66/50 05/29/21 08:00 98.1 F 79 17 68/51 05/29/21 06:45 81/56 05/29/21 05:50 73/52 05/29/21 04:50 75/51 05/29/21 04:30 65/57 05/29/21 04:10 97.8 F 80 16 67/45 05/29/21 03:01 66/42 05/29/21 02:55 68/47 58/43 05/29/21 02:22 75/52 05/29/21 01:51 77/55 05/29/21 01:17 74/51 05/29/21 00:40 81/50 05/28/21 23:54 77/49 05/28/21 23:53 97.4 F L 95 16 74/50 05/28/21 23:36 80/51 05/28/21 23:25 77/52 05/28/21 21:56 78/60 05/28/21 21:35 97.1 F L 67 18 66/46 81/53 Pulse Ox 05/29/21 17:33 98 05/29/21 16:41 96 05/29/21 16:00 99 05/29/21 14:46 05/29/21 14:20 05/29/21 14:00 05/29/21 13:53 96 05/29/21 10:30 05/29/21 09:54 05/29/21 09:28 05/29/21 09:01 05/29/21 08:56 05/29/21 08:34 05/29/21 08:00 96 05/29/21 06:45 05/29/21 05:50 05/29/21 04:50 05/29/21 04:30 05/29/21 04:10 96 05/29/21 03:01 05/29/21 02:55 05/29/21 02:22 05/29/21 01:51 05/29/21 01:17 05/29/21 00:40 05/28/21 23:54 05/28/21 23:53 94 L 05/28/21 23:36 05/28/21 23:25 05/28/21 21:56 05/28/21 21:35 97 Intake and Output 05/29/21 05/29/21 05/29/21 06:59 14:59 22:59 Intake Total 100 Balance 100 Intake: Oral 100 Other: Voiding Method Diaper Diaper Incontinent Incontinent # Voids 1 # Bowel Movements 1 1 Gen: This is well-developed does not look in any respiratory distress. The breathing is nonlabored and the patient is currently on room air oxygen. No signs of any respiratory distress. Unable to communicate with the patient as the patient has developmental delay. Head exam was generally normal. There was no scleral icterus or corneal arcus. Mucous membranes were moist. HEENT: Head is atraumatic, normocephalic. Pupils equal, round. Sclerae is anicteric. NECK: Supple. No JVD. No lymphadenopathy. No thyromegaly. LUNGS: decreased breath some bilaterally with rhonchi no crackles or wheezes. Cardiac exam revealed the PMI to be normally situated and sized. The rhythm was regular and no extrasystoles were noted during several minutes of auscultation. The first and second heart sounds were normal and physiologic splitting of the second heart sound was noted. There were no murmurs, rubs, clicks, or gallops. ABDOMEN: Soft. Bowel sounds are present. significant ascites the abdominal area with the PD With no sign of infection. There is some mild erythema at the site of the peritoneal catheter EXTREMITIES: No pedal edema. No calf tenderness.scar on the left knee from previous surgery. No swelling in the left knee. NEUROLOGICAL: Patient is awake, alert and awake and the patient opens her eyes spontaneously and according to the mother was at the bedside, the patient is slightly confused. . Cranial nerves 2 through 12 are grossly intact. Results - Laboratory Findings CBC and BMP: 05/26/21 10:26 05/29/21 08:26 PT/INR, D-dimer PT 10.5 sec (9.0-12.0) 05/25/21 15:52 INR 1.0 (<1.2) 05/25/21 15:52 Abnormal lab findings: Abnormal Labs 05/25/21 05/25/21 05/25/21 15:52 15:52 16:18 WBC 14.2 H RBC Hgb MCV 102.9 H MCHC 30.6 L RDW 17.3 H Neutrophils # 11.9 H Sodium Potassium Chloride Carbon Dioxide BUN Creatinine Glucose Plasma Lactic Acid David 2.7 H* AST ALT Alkaline Phosphatase Troponin I 0.161 H* C-Reactive Protein Total Protein Albumin 05/25/21 05/25/21 05/25/21 16:18 18:35 20:26 WBC RBC Hgb MCV MCHC RDW Neutrophils # Sodium 131 L Potassium 2.1 L* Chloride 97 L Carbon Dioxide BUN 41 H Creatinine 4.75 H Glucose 123 H Plasma Lactic Acid David AST 84 H ALT 62 H Alkaline Phosphatase 180 H Troponin I 0.163 H* 0.160 H* C-Reactive Protein Total Protein 4.7 L Albumin 1.9 L 05/25/21 05/26/21 05/26/21 20:26 10:26 10:33 WBC 10.8 H RBC 3.62 L Hgb 11.3 L MCV 102.3 H MCHC 30.6 L RDW 17.3 H Neutrophils # 9.1 H Sodium 131 L 133 L Potassium 3.1 L Chloride Carbon Dioxide 21 L BUN 43 H 44 H Creatinine 4.78 H 5.15 H Glucose 104 H 111 H Plasma Lactic Acid David AST ALT Alkaline Phosphatase Troponin I C-Reactive Protein Total Protein Albumin 05/27/21 05/29/21 09:05 08:26 WBC RBC Hgb MCV MCHC RDW Neutrophils # Sodium 132 L 132 L Potassium 3.4 L 3.0 L Chloride Carbon Dioxide 21 L BUN 39 H 33 H Creatinine 4.73 H 4.34 H Glucose 111 H 107 H Plasma Lactic Acid David AST ALT Alkaline Phosphatase Troponin I C-Reactive Protein 7.4 H Total Protein Albumin - Diagnostic Findings Chest x-ray: image reviewed Assessment and Plan Plan: 1 hypotension secondary to sepsis. The patient was resuscitated with IV fluids and his blood pressure is improved. The patient is also mild. The patient was covered with broad-spectrum antibiotics and the patient was given intraperitoneal vancomycin. She does have peritonitis related to peritoneal d ialysis and the patient has staph epidermidis and Enterococcus faecalis growing in the peritoneal fluid. 2. End-stage renal disease and the patient is currently undergoing peritoneal dialysis 3 limited troponin elevation, leak, no indication for an acute coronary event, and this troponin leak is related to above-mentioned comorbidities. 4 developmental delay with subsequent decompensation or further worsening in the mentation secondary to underlying infection/sepsis 5 obesity with a BMI of 31.2 6 history of septic arthritis and the patient has a antibiotic spacer with the left knee joint placed for an infected/septic knee joint 7 hypothyroidism 8 hyperlipidemia 9 history of chronic gout 10 history of chronic anemia Plan Patient is on to IV fluids, no need for pressors at this point in time. Continue IV fluids at a maintenance of 100 mL an hour of normal saline Continue current antibiotic coverage and the patient was given vancomycin intraperitoneally Continue CAPD exchange for renal failure Patient was given stress dose hydrocortisone. This can be discontinued knowing that the patient's baseline serum cortisol at 30 and there is no indication for adrenal insufficiency. Monitor hemodynamics Noted for ICU transfer this point in time. We'll continue to follow
[2021-05-29 20:58] LABS: Glucose,Whole Blood 127 mg/dL (75-99)
[2021-05-29] MEDS: INSULIN ASPART (NovoLOG) 100 UNIT/ML VIAL SQ SCH (20:58)
[2021-05-29] MEDS: ATORVASTATIN 10 MG TAB PO SCH (21:11)
[2021-05-29] MEDS: SERTRALINE 25 MG TAB PO SCH (21:11)
--- NOTE | 2021-05-29 22:47 | PN ---
PROGRESS NOTE DATE OF SERVICE: 05/29/2021 REASON FOR FOLLOW UP: PD catheter peritonitis. INTERVAL HISTORY: The patient is afebrile. The patient is breathing comfortably. No further nausea, vomiting. Abdominal pain is currently controlled. No diarrhea. No chest pain, shortness of breath or cough. PHYSICAL EXAMINATION: Blood pressure is 82/60 with a pulse of 97. Temperature 98.2. She is 98% on room air. General description is a middle-aged female lying in bed in no distress. Respiratory system: Unlabored breathing, clear to auscultation anteriorly. Heart S1, S2. Regular rate and rhythm. Abdomen soft, no tenderness. No guarding. No rigidity. LABS: Creatinine is 4.34. DIAGNOSTIC IMPRESSION AND PLAN: Patient with Enterococcus faecalis and Staph Epi. PD catheter shows peritonitis. No evidence of any infection clinically. Patient is covered with vancomycin. Antibiotic will be continued with periodic monitoring of her count to make sure it is trending down and blood cultures will be followed. Continue supportive care. MMODL / IJN: [id number] /
[2021-05-30] MEDS: SODIUM CHLORIDE 0.9% 1,000 ML IV SCH (01:58)
[2021-05-30] MEDS: HYDROCORTISONE SUCCINATE 100 MG/2 ML VIAL IV SCH (03:32)
[2021-05-30] MEDS: DIALYSIS (PERIT 1.5%) 2,000 ML 30 G/2,000 ML BAG INTRAPERIT SCH ×3 (03:56→15:23)
[2021-05-30 06:06] LABS: Glucose,Whole Blood 132 mg/dL (75-99)
[2021-05-30] MEDS: LEVOTHYROXINE 112 MCG TAB PO SCH (06:36)
[2021-05-30] MEDS: INSULIN ASPART (NovoLOG) 100 UNIT/ML VIAL SQ SCH ×3 (06:36→19:05)
[2021-05-30] MEDS: PANTOPRAZOLE 40 MG TABLET PO SCH (06:37)
[2021-05-30] MEDS: MIDODRINE 5 MG TAB PO SCH ×3 (06:37→19:05)
[2021-05-30] MEDS: SEVELAMER 800 MG TAB PO SCH ×3 (06:37→19:04)
[2021-05-30 11:36] LABS: Glucose,Whole Blood 96 mg/dL (75-99)
[2021-05-30 11:50] LABS: Calcium 8.2 mg/dL (8.4-10.2)
[2021-05-30 12:09] LABS: Anisocytosis Slight; HCT 30.8 % (34.0-46.0); Hypochromasia Slight; MCH 32.1 pg (25.0-35.0); MCHC 31.7 g/dL (31.0-37.0); MCV 101.1 fL (80.0-100.0); Macrocytosis Slight; Mean Platelet Volume 10.6; Platelet Count 180 k/uL (150-450); RBC 3.05 m/uL (3.80-5.40); RDW 16.9 % (11.5-15.5); WBC 12.8 k/uL (3.8-10.6)
[2021-05-30 12:12] LABS: HGB 9.8 gm/dL (11.4-16.0)
[2021-05-30 12:22] LABS: Potassium 4.5 mmol/L (3.5-5.1)
[2021-05-30 12:39] LABS: Band Neutrophils % 1 %; Lymphocytes # (M) 2.43 k/uL (1.0-4.8); Metamyelocytes # (M) 0.13 k/uL (0); Metamyelocytes % 1 %; Monocytes # (M) 0.51 k/uL (0-1.0); Myelocytes # (M) 0.26 k/uL (0); Myelocytes % 2 %; Neutrophils % (M) 75 %; Nucleated Red Blood Cells 0 /100 WBC (0-0); Total Cells Counted 200; Toxic Granulation Present; Toxic Vacuolation Present
[2021-05-30] MEDS ORDERED: VANCOMYCIN IV PER PHARMACY 1 EACH MISC MISCELLANE PRN (13:04)
--- NOTE | 2021-05-30 13:04 | PN ---
PROGRESS NOTE Patient is seen for followup for end-stage renal disease. Patient remains hypotensive. She did not get any peritoneal dialysis yesterday, as her blood pressure remain below 90. The white cell count, as mentioned, had increased to 1175 on 05/28, and in view of hypotension, there was consideration for removal of PD catheter. Culture has returned with group D Enterococcus on the repeat specimen as well from 2 days later. Patient will have her PD catheter removed, given the ongoing hypotension, and we will switch to hemodialysis. On examination today, blood pressure was 95/60, heart rate 73 per minute. Repeat blood pressure 102/68, heart rate 69 per minute. She is afebrile. Examination of the lower extremities shows no evidence of edema. Abdomen is soft, nontender. FIREBR[employer] LAYER exam shows patient is answering questions to some degree. She is moving all 4 extremities. Labs are pending from today. ASSESSMENT: 1. PD peritonitis with repeat PD fluid culture on 05/28 also growing group D Enterococcus. Patient remains hypotensive. Therefore we will remove the PD catheter and switch to IV antibiotics. Patient will need IJ PermCath placed for switching to hemodialysis. 2. Hypokalemia, status post replacement. 3. End-stage renal disease. Patient will be switched from PD to hemodialysis and re- evaluate for PD down the road in about 4 to 8 weeks. 4. Chronic kidney disease mineral bone disorder. MMODL / IJN: [id number] /
[2021-05-30] MEDS: POTASSIUM CHLORIDE ER 20 MEQ TAB.ER PO SCH (13:26)
[2021-05-30] MEDS: allopurinoL 100 MG TAB PO SCH (13:26)
[2021-05-30] MEDS: MAGNESIUM OXIDE 400 MG TAB PO SCH (13:26)
[2021-05-30] MEDS: FAMOTIDINE 20 MG TAB PO SCH (13:27)
[2021-05-30] MEDS: FOLIC ACID-VIT B COMPLEX-VIT C 1 CAP PO SCH (13:27)
--- NOTE | 2021-05-30 13:28 | P.GSCN ---
History of Present Illness Consult date: 05/30/21 Reason for Consult: Peritoneal dialysis catheter associated peritonitis History of present illness: 56-year-old female known to our service. A proximally 1.5 years ago patient had peritoneal dialysis catheter placed. Patient came to the hospital with change in mental status and weakness. Patient has history of learning disability and developmental delay. Was found to be septic this admission. Was found to have enterococcus on peritoneal fluid cultures. Has not had any significant abdominal complaints. We were consulted for dialysis catheter removal. Review of Systems ROS unobtainable: due to mental status Past Medical History Past Medical History: Hyperlipidemia, Hypertension, Renal Disease, Thyroid Disorder Additional Past Medical History / Comment(s): developmentally delayed, ESRD with nightly peritoneal dialysis, anemia, mineral bone disease, reverse deep palate/ some speech issues, swelling legs and ankles, hx of fx rt leg, hypothyroid, degenerative joint disease. History of Any Multi-Drug Resistant Organisms: None Reported Past Surgical History: Ear Surgery, Joint Replacement Additional Past Surgical History / Comment(s): 09/25/20 total L knee arthroplasty, 09/30/20 permacath R chest, 01/13/20 peritoneal dialysis catheter, septoplasty, bilateral myringotomy/tubes, oral surgery, Past Anesthesia/Blood Transfusion Reactions: Family History of Problems w/ Anesthesia Additional Past Anesthesia/Blood Transfusion Reaction / Comm: mom-ponv Past Psychological History: No Psychological Hx Reported Smoking Status: Never smoker Past Alcohol Use History: None Reported Past Drug Use History: None Reported - Past Family History Father Family Medical History: Cancer Additional Family Medical History / Comment(s): Father of esophageal cancer. Mother Family Medical History: Cancer, Hyperlipidemia, Hypertension, Osteoarthritis (OA) Additional Family Medical History / Comment(s): Tip of R index finger cancer/amputated. Medications and Allergies Home Medications Medication Instructions Recorded Confirmed Type Levothyroxine Sodium [Synthroid] 112 mcg PO AC-BRKFST 01/10/20 05/25/21 History allopurinoL [Zyloprim] 100 mg PO DAILY 10/16/20 05/25/21 History Atorvastatin [Lipitor] 10 mg PO HS 10/31/20 05/25/21 History Sevelamer [Renvela] 800 mg PO AC-TID 01/11/21 05/25/21 History Epoetin Felipe [Epogen] 20,000 unit SQ Q7D 05/25/21 05/25/21 History Famotidine [Pepcid] 20 mg PO DAILY 05/25/21 05/25/21 History Gentamicin Sulfate [Gentamicin 1 applic TOPICAL DAILY PRN 05/25/21 05/25/21 Hi story Sulfate 0.1%] Magnesium Oxide [Evans] 500 mg PO DAILY 05/25/21 05/25/21 History Midodrine HCl [ProAmatine] 10 mg PO AC-TID 05/25/21 05/25/21 History Ondansetron Odt [Zofran Odt] 8 mg PO Q8H PRN 05/25/21 05/25/21 History Potassium Chloride ER [K-Dur 20] 20 meq PO DAILY 05/25/21 05/25/21 History Danna-Tino 1 tab PO DAILY 05/25/21 05/25/21 History Sertraline [Zoloft] 25 mg PO HS 05/25/21 05/25/21 History Allergies Allergy/AdvReac Type Severity Reaction Status Date / Time lisinopril Allergy Unknown Verified 05/25/21 18:30 Surgical - Exam Vital Signs Temp Pulse Resp BP Pulse Ox 98.6 F 97 18 89/61 96 05/25/21 14:59 05/25/21 14:59 05/25/21 14:59 05/25/21 14:59 05/25/21 14:59 Physical exam: General: Well-developed, well-nourished HEENT: Normocephalic, sclerae nonicteric Abdomen: Nontender, nondistended,, right-sided catheter in place Extremities: Mild edema Neuro: Alert but slightly confused Results - Labs 05/30/21 10:47 05/30/21 10:47 Abnormal Lab Results - Last 24 Hours (Table) 05/29/21 05/30/21 05/30/21 Range/Units 20:57 06:05 10:47 WBC 12.8 H (3.8-10.6) k/uL RBC 3.05 L (3.80-5.40) m/uL Hgb 9.8 L D (11.4-16.0) gm/dL Hct 30.8 L (34.0-46.0) % MCV 101.1 H (80.0-100.0) fL RDW 16.9 H (11.5-15.5) % Neutrophils # (Manual) 9.70 H (1.3-7.7) k/uL Metamyelocytes # (Man) 0.13 H (0) k/uL Myelocytes # (Manual) 0.26 H (0) k/uL Sodium (137-145) mmol/L Chloride (98-107) mmol/L Carbon Dioxide (22-30) mmol/L BUN (7-17) mg/dL Creatinine (0.52-1.04) mg/dL Glucose (74-99) mg/dL POC Glucose (mg/dL) 127 H 132 H (75-99) mg/dL Calcium (8.4-10.2) mg/dL 05/30/21 Range/Units 10:47 WBC (3.8-10.6) k/uL RBC (3.80-5.40) m/uL Hgb (11.4-16.0) gm/dL Hct (34.0-46.0) % MCV (80.0-100.0) fL RDW (11.5-15.5) % Neutrophils # (Manual) (1.3-7.7) k/uL Metamyelocytes # (Man) (0) k/uL Myelocytes # (Manual) (0) k/uL Sodium 133 L (137-145) mmol/L Chloride 108 H (98-107) mmol/L Carbon Dioxide 19 L (22-30) mmol/L BUN 33 H (7-17) mg/dL Creatinine 4.53 H (0.52-1.04) mg/dL Glucose 105 H (74-99) mg/dL POC Glucose (mg/dL) (75-99) mg/dL Calcium 8.2 L (8.4-10.2) mg/dL Microbiology - Last 24 Hours (Table) 05/28/21 12:12 Gram Stain - Preliminary Peritoneal Fluid Body Fluid Culture - Preliminary Group D Enterococcus 05/28/21 12:57 Blood Culture - Preliminary Blood No Growth after 24 hours 05/26/21 22:47 Gram Stain - Final Dialysate Body Fluid Culture - Final Enterococcus faecalis Staphylococcus epidermidis Diabetes panel 05/30/21 Range/Units 10:47 Sodium 133 L (137-145) mmol/L Potassium 4.5 (3.5-5.1) mmol/L Chloride 108 H (98-107) mmol/L Carbon Dioxide 19 L (22-30) mmol/L BUN 33 H (7-17) mg/dL Creatinine 4.53 H (0.52-1.04) mg/dL Glucose 105 H (74-99) mg/dL Calcium 8.2 L (8.4-10.2) mg/dL Calcium panel 05/30/21 Range/Units 10:47 Calcium 8.2 L (8.4-10.2) mg/dL Pituitary panel 05/30/21 Range/Units 10:47 Sodium 133 L (137-145) mmol/L Potassium 4.5 (3.5-5.1) mmol/L Chloride 108 H (98-107) mmol/L Carbon Dioxide 19 L (22-30) mmol/L BUN 33 H (7-17) mg/dL Creatinine 4.53 H (0.52-1.04) mg/dL Glucose 105 H (74-99) mg/dL Calcium 8.2 L (8.4-10.2) mg/dL Adrenal panel 05/30/21 Range/Units 10:47 Sodium 133 L (137-145) mmol/L Potassium 4.5 (3.5-5.1) mmol/L Chloride 108 H (98-107) mmol/L Carbon Dioxide 19 L (22-30) mmol/L BUN 33 H (7-17) mg/dL Creatinine 4.53 H (0.52-1.04) mg/dL Glucose 105 H (74-99) mg/dL Calcium 8.2 L (8.4-10.2) mg/dL Assessment and Plan (1) ESRD on peritoneal dialysis Narrative/Plan: 56-year-old female with infected peritoneal dialysis catheter. We'll proceed with dialysis catheter removal at this time. Current Visit: No Status: Chronic Code(s): N18.6 - END STAGE RENAL DISEASE; Z99.2 - DEPENDENCE ON RENAL DIALYSIS SNOMED Code(s): 679155748
[2021-05-30] MEDS ORDERED: VANCOMYCIN 1,500 MG in SODIUM CHLORIDE 0.9% 250 ML IVPB ONE (14:00)
--- NOTE | 2021-05-30 14:01 | P.PN ---
Subjective Progress Note Date: 05/30/21 HISTORY OF PRESENT ILLNESS 56-year-old female with developmental delay who had history of end-stage renal disease on peritoneal dialysis, history of hypertension, hyperlipidemia, h ypothyroidism who had an infected left knee late last year had surgery and ended up going to rehab for long time was home for the last few weeks when patient developed to have significant change mental status with decreased oral intake with worsening symptoms overall for the last few days have been having fatigue tiredness not been eating or drinking no now moving. Also her dialysis has been getting quite bit worse patient apparently will be switch to hemodialysis was told need workup for fistula graft the left arm for possible hemodialysis. Family ended up bringing her to demurs department at [facility] where was seen and evaluated surprisingly found to have mildly elevated troponin with severe electrolyte imbalance with potassium of 2.1 only. Chest x-ray did not show any infection just atelectasis, COVID-19 was negative at the time. Patient was started on gentle hydration will be admitted to the hospital be seen nephrology and vascular, CK with troponin 3 will be done and patient will be seen cardiology further intervention after doing an echocardiogram will depend on the result. 05/26: Patient states that she is feeling better. No complaints or concerns. Plan is for patient to change from peritoneal dialysis to hemodialysis. Consult for nephrology and vascular surgery in place. Patient remains afebrile, heart rate 108, respirations 18, blood pressure 105/71 pulse ox 90% on room air. WC 10.8, hemoglobin 11.3, sodium 133, potassium 3.1, BUN 44, creatinine 5.15. 05/27, patient is currently nothing by mouth, for planned Port-A-Cath placement today, for the transfusion hemodialysis treatment, from a peritoneal dialysis regimen. Patient has dry mouth, no nausea no vomiting, no chest pain no shortness of breath, vitals are stable, 118/64, no fever, T-max of 97.0, heart rate is in the 70s. Pulse ox room air 98% 05/28: Patient is seen today on the cardiac stepdown unit. She is receiving intraperitoneal antibiotics. Patient is receiving regular CAPD managed by nephrology. Nephrology is planning on 2-3 weeks of antibiotic therapy. Tonsils been added for Dr. Doran 8. 05/29: Throughout the night, blood pressure was low down to 68/50, CAPD was held, patient received 500 mL bolus last evening a repeat this morning and we are ordering another 250 ML's now. Blood pressure has recovered somewhat at 90/60. Cortisol level was ordered and patient will be started on hydrocortisone 100 mg IV every 8 hours. Ensure clear and beneprotein added. Sodium was 132, potassium 3.0 will be replaced, BUN 33 creatinine 4.34, blood sugar 107. The plan to transfer patient to ICU but at this point, hold any transfer and continue current treatment. Dr. Randhawa has seen and reviewed patient, blood cultures and inflammatory markers pending. 05/30: Patient is scheduled to have CAPD catheter removed with Dr. Somers and have dialysis by Dr. Navarro. Blood pressures are improved. Hydrocortisone discontinued as cortisol level was at 30. Blood pressure 103/72, afebrile, heart rate in the 60s, pulse ox 100% on room air. REVIEW OF SYSTEMS Constitutional: No fever, no chills, no night sweats. significant weight change or generalized weakness fatigue lethargy daytime sleepiness EENT: No headache. No blurred vision or double vision, no loss of vision. No loss of Hearing, no ringing in the ears, no dizziness. No nasal drainage or congestion. No epistaxis. No sore throat. Lungs: No shortness of breath, cough, no sputum production. No wheezing. Cardiovascular: No chest pain, no lower extremity edema. No palpitations. No paroxysmal nocturnal dyspnea. No orthopnea. No lightheadedness or dizziness. No syncopal episodes. Abdominal: No abdominal pain. No nausea, vomiting. No diarrhea. No constipation. No bloody or tarry stools.. No loss of appetite. Genitourinary: decrease in urine output. Musculoskeletal: No myalgias. No muscle weakness, no gait dysfunction, no frequent falls. No back pain. No neck pain. Integumentary: No wounds, no lesions. No rash or pruritus. No unusual bruising. No change in hair or nails. Neurologic: developmental delay with generalized weakness fatigue and lethargy. Psychiatric: No depression. No anxiety. No mood swings. Endocrine: No abnormal blood sugars. No weight change. PHYSICAL EXAMINATION Gen: This is well-developed does not look in any respiratory distress. HEENT: Head is atraumatic, normocephalic. Pupils equal, round. Sclerae is anicteric. NECK: Supple. No JVD. No lymphadenopathy. No thyromegaly. LUNGS: decreased breath some bilaterally with rhonchi no crackles or wheezes. HEART: Regular rate and rhythm. No murmur. ABDOMEN: Soft. Bowel sounds are present. CAPD catheter. EXTREMITIES: No pedal edema. No calf tenderness. scar on the left knee from previous surgery. NEUROLOGICAL: Patient is awake, alert and oriented to person and place with slight confusion. ASSESSMENT AND PLAN 1.metabolic encephalopathy secondary to PD associated peritonitis. Patient is to continue CAPD antibiotics, consult with Dr. Randhawa appreciated. CAPD catheter to be removed and Dr. Navarro will place dialysis catheter placed 2 elevated troponin and possible non-ST NH: CK with troponin 3 will be done, consult cardiology echocardiogram will be done based on the results decide on further management including if needed to do any intervention. 3 end-stage renal disease on CAPD currently patient apparently been tried to switch to hemodialysis consult nephrology will continue CAPD for now until her dialysis line is on board when patient can be switched to hemodialysis. 4 hypertension: Patient blood pressure has been slightly bit low she is using midodrine 10 mg 3 times a day. 5 hypothyroidism: Continue patient on levothyroxine 112 g daily. 6 hyperlipidemia: Has been on atorvastatin 10 mg a day. 7 chronic gout: Patient has been on Zyloprim 100 mg daily. 8 electrolyte imbalance with severe hypokalemia: Patient has been on Klor-Con 20 me daily we'll titrate dose up to 20 mg 3 times a day for now recheck potassium level replacement will be done. 9 chronic anemia: Has been on iron and Epogen. 10 infected left knee post surgery patient left knee is non-ambulatory currently she need help will consider physical therapy the patient therapy. 11 severe dehydration: Continue gentle hydration for now watch for any fluid overload. 12 GI prophylaxis: Patient be on Pepcid 20 mg daily. 13 DVT prophylaxis: Knee-high ANDRE hose and Venodyne boots if needed subcu heparin will be done. 14. COVID-19 testing.was negative. 15. Hypokalemia. Potassium chloride 10 mEq IV piggyback times 4, repeat BMP in the a.m. 16. Hypovolemic shock it is post multiple fluid boluses, continue to hold CAPD as advised by nephrology, Solu-Cortef discontinued, Ensure and beneprotein added. No need to transfer to ICU at this point. Discharge plan:subacute rehab Impression and plan of care have been directed as dictated by the signing physician. Kianna Don nurse practitioner acting as scribe for signing [email or web address] [email or web address]. Objective - Vital Signs Vital signs: Vital Signs Temp 98.1 F 05/30/21 08:00 Pulse 69 05/30/21 09:52 Resp 17 05/30/21 08:00 BP 102/68 05/30/21 09:52 Pulse Ox 99 05/30/21 08:00 Intake & Output 05/29/21 05/30/21 05/30/21 18:59 06:59 18:59 Intake Total 0 120 Output Total 1 Balance 0 120 -1 Weight 77 kg 77 kg Intake: Oral 0 120 Output: Urine 1 Other: Voiding Method Diaper Diaper Diaper Incontinent Incontinent Incontinent # Voids 1 1 1 # Bowel Movements 1 1 1 - Labs CBC & Chem 7: 05/30/21 10:47 05/30/21 10:47 Labs: Abnormal Lab Results - Last 24 Hours (Table) 05/29/21 05/30/21 Range/Units 20:57 06:05 POC Glucose (mg/dL) 127 H 132 H (75-99) mg/dL Microbiology - Last 24 Hours (Table) 05/28/21 12:12 Gram Stain - Preliminary Peritoneal Fluid Body Fluid Culture - Preliminary Group D Enterococcus 05/28/21 12:57 Blood Culture - Preliminary Blood No Growth after 24 hours 05/26/21 22:47 Gram Stain - Final Dialysate Body Fluid Culture - Final Enterococcus faecalis Staphylococcus epidermidis
[2021-05-30] MEDS ORDERED: SODIUM CHLORIDE 0.9% 1,000 ML IV ONE (15:08)
[2021-05-30] MEDS ORDERED: IV FLUID CONTINUATION 100 ML IV ONE (15:08)
[2021-05-30 15:28] LABS: Glucose,Whole Blood 88 mg/dL (75-99)
[2021-05-30] MEDS ORDERED: HEPARIN SODIUM,PORCINE/PF 5,000 UNIT/0.5 ML SYRINGE SQ ONE (15:30)
[2021-05-30] MEDS ORDERED: ONDANSETRON 4 MG/2 ML VIAL ONE (15:31)
[2021-05-30] MEDS ORDERED: ONDANSETRON 4 MG/2 ML VIAL IVP ONE (15:35)
--- NOTE | 2021-05-30 15:55 | PN ---
PROGRESS NOTE Patient has a history of acute on chronic renal failure. Patient has a peritoneal dialysis catheter that is infected. Today catheter will be removed. I was consulted for placement of a dialysis catheter. This patient had a dialysis catheter placed x2 in the past by me. Patient has very poor access. PLAN: We will place a dialysis catheter tomorrow. MMODL / IJN: [id number] /
[2021-05-30] MEDS ORDERED: PROPOFOL 10 MG/ML 20 ML VIAL IV ONE (16:46)
[2021-05-30] MEDS ORDERED: BUPIVACAIN-EPI 0.25%-1:200,000 30 ML VIAL SQ ONE ×2 (17:07)
--- NOTE | 2021-05-30 17:11 | P.PN ---
Subjective Progress Note Date: 05/30/21 I was asked to evaluate this 56-year-old here patient for possible ICU transfer. The patient was found to be quite hypotensive this morning with a systolic blood pressure dropping in the mid 60s. The patient is septic. The patient has been diagnosed having a peritonitis. The patient has an incisional disease and the patient has been receiving peritoneal dialysis on outpatient basis. The patient has a peritoneal dialysis catheter in place. The patient came into the hospital because of diminished oral intake, generalized weakness and fatigue and some altered mentation. She was also having intermittent diarrhea and dehydration prior to hospital admission. The patient was initially taken to [facility]. Following that she was admitted to our hospital for further care. The peritoneal fluid was aspirated and this causes for infection. There peritoneal fluid cultures positive for Enterococcus faecalis and staph epidermidis. The patient was given written drop peritoneal vancomycin. The family has noted that the fluid characteristics from the peritoneal fluid has change. There was a concern for infection also by the family. They catheter exit site shows some mild erythema. No purulent discharge from the catheter site. Blood cultures were sent. ID has been consulted. Hemodynamically, the patient was hypotensive. The patient was given IV fluids and currently systolic blood pressures the mid 80s without any significant tachycardia. The patient is arousable. She is developmentally delayed and she cannot hold a conversation. She is nonambulatory. She has an antibiotic spacer in her left knee joint for an underlying staphylococcal infection. This was done by orthopedic surgery at [facility]. The blood work from today was noted. The patient has a BUN of 33 with a creatinine of 4.3. Potassium level is at 3.0 and the sodium level isn't 132. The patient had his troponin of 0.163 respectively. The patient was echo wasn't 14.2 with a hemoglobin of 12.5 and a platelet count of 320. Note that the patient was given several fluid boluses today. The patient received a total of 2 L bolus and later she was given another 250 mL. She was also given another liter bolus yesterday by nephrology. The patient is also on midodrine for blood pressure support. 06/01/2023 patient's condition is stable. The patient is hemodynamically improv ed and the patient is able to support her own blood pressure. The patient is currently running away cervical os 12.8 with a hemoglobin of 9.8. The BUN is at 33 with a creatinine of 4.5. Sodium is at 133. The peritoneal fluid culture turntable man to be positive for enterococcus group D and earlier culture was positive for Enterococcus faecalis. The patient remains on vancomycin being administered IV. The patient's would have the CAPD catheter removed by general surgery and have a dialysis catheter inserted. Blood pressure is stable for now. The patient's had hydrocortisone level that was elevated and the hydrocortisone IV can be discontinued. No fever. No other significant events otherwise. The patient is calm and comfortable and there are no signs of any respiratory distress and the patient is currently on room air oxygen. Objective - Vital Signs Vital signs: Vital Signs Temp 97.0 F L 05/30/21 15:09 Pulse 63 05/30/21 15:09 Resp 16 05/30/21 15:09 BP 125/81 05/30/21 15:09 Pulse Ox 95 05/30/21 15:09 Intake & Output 05/29/21 05/30/21 05/30/21 18:59 06:59 18:59 Intake Total 0 120 50 Output Total 1 Balance 0 120 49 Weight 77 kg 77 kg Intake: IV 50 Oral 0 120 Output: Urine 1 Stool 0 Urine/Stool Mix 0 Other: Voiding Method Diaper Diaper Diaper Incontinent Incontinent Incontinent # Voids 1 1 0 # Bowel Movements 1 1 0 - Exam Gen: This is well-developed does not look in any respiratory distress. The breathing is nonlabored and the patient is currently on room air oxygen. No signs of any respiratory distress. Unable to communicate with the patient as the patient has developmental delay. Head exam was generally normal. There was no scleral icterus or corneal arcus. Mucous membranes were moist. HEENT: Head is atraumatic, normocephalic. Pupils equal, round. Sclerae is anicteric. NECK: Supple. No JVD. No lymphadenopathy. No thyromegaly. LUNGS: decreased breath some bilaterally with rhonchi no crackles or wheezes. Cardiac exam revealed the PMI to be normally situated and sized. The rhythm was regular and no extrasystoles were noted during several minutes of auscultation. The first and second heart sounds were normal and physiologic splitting of the second heart sound was noted. There were no murmurs, rubs, clicks, or gallops. ABDOMEN: Soft. Bowel sounds are present. significant ascites the abdominal area with the PD With no sign of infection. There is some mild erythema at the site of the peritoneal catheter EXTREMITIES: No pedal edema. No calf tenderness.scar on the left knee from previous surgery. No swelling in the left knee. NEUROLOGICAL: Patient is awake, alert and awake and the patient opens her eyes spontaneously and according to the mother was at the bedside, the patient is slightly confused. . Cranial nerves 2 through 12 are grossly intact. - Labs CBC & Chem 7: 05/30/21 10:47 05/30/21 10:47 Labs: Abnormal Lab Results - Last 24 Hours (Table) 05/29/21 05/30/21 05/30/21 Range/Units 20:57 06:05 10:47 WBC 12.8 H (3.8-10.6) k/uL RBC 3.05 L (3.80-5.40) m/uL Hgb 9.8 L D (11.4-16.0) gm/dL Hct 30.8 L (34.0-46.0) % MCV 101.1 H (80.0-100.0) fL RDW 16.9 H (11.5-15.5) % Neutrophils # (Manual) 9.70 H (1.3-7.7) k/uL Metamyelocytes # (Man) 0.13 H (0) k/uL Myelocytes # (Manual) 0.26 H (0) k/uL Sodium (137-145) mmol/L Chloride (98-107) mmol/L Carbon Dioxide (22-30) mmol/L BUN (7-17) mg/dL Creatinine (0.52-1.04) mg/dL Glucose (74-99) mg/dL POC Glucose (mg/dL) 127 H 132 H (75-99) mg/dL Calcium (8.4-10.2) mg/dL 05/30/21 Range/Units 10:47 WBC (3.8-10.6) k/uL RBC (3.80-5.40) m/uL Hgb (11.4-16.0) gm/dL Hct (34.0-46.0) % MCV (80.0-100.0) fL RDW (11.5-15.5) % Neutrophils # (Manual) (1.3-7.7) k/uL Metamyelocytes # (Man) (0) k/uL Myelocytes # (Manual) (0) k/uL Sodium 133 L (137-145) mmol/L Chloride 108 H (98-107) mmol/L Carbon Dioxide 19 L (22-30) mmol/L BUN 33 H (7-17) mg/dL Creatinine 4.53 H (0.52-1.04) mg/dL Glucose 105 H (74-99) mg/dL POC Glucose (mg/dL) (75-99) mg/dL Calcium 8.2 L (8.4-10.2) mg/dL Microbiology - Last 24 Hours (Table) 05/28/21 12:57 Blood Culture - Preliminary Blood No Growth after 48 hours 05/28/21 12:12 Gram Stain - Preliminary Peritoneal Fluid Body Fluid Culture - Preliminary Group D Enterococcus 05/26/21 22:47 Gram Stain - Final Dialysate Body Fluid Culture - Final Enterococcus faecalis Staphylococcus epidermidis Assessment and Plan Plan: 1 hypotension secondary to sepsis, recovered.. The patient was resuscitated with IV fluids and his blood pressure is improved. The patient is also mild. The patient was covered with broad-spectrum antibiotics and the patient was given intraperitoneal vancomycin. She does have peritonitis related to peritoneal dialysis and the patient has staph epidermidis and Enterococcus faecalis growing in the peritoneal fluid. The patient is currently on antibiotics. The patient has not required any pressors. The patient responded to antibiotics and fluids. Peritoneal catheter will be removed and replaced by a hemodialysis catheter. The patient has peritonitis related to a PD catheter. 2. End-stage renal disease and the patient is currently undergoing peritoneal dialysis 3 limited troponin elevation, leak, no indication for an acute coronary event, and this troponin leak is related to above-mentioned comorbidities. 4 developmental delay with subsequent decompensation or further worsening in the mentation secondary to underlying infection/sepsis 5 obesity with a BMI of 31.2 6 history of septic arthritis and the patient has a antibiotic spacer with the left knee joint placed for an infected/septic knee joint 7 hypothyroidism 8 hyperlipidemia 9 history of chronic gout 10 history of chronic anemia Plan We'll remove the PD catheter and proceed with insertion of a hemodialysis catheter by vascular surgery Continue antibiotic treatment Continue mitogen IV fluids can be reduced to KVO No need for hydrocortisone Hemodynamically stable and the patient will be managed by the medical team. Pulmonary critical care services we'll sign off the case.
[2021-05-30] MEDS ORDERED: SODIUM CHLORIDE 0.9% 500 ML 500 ML IV ONE (17:18)
--- NOTE | 2021-05-30 17:26 | P.OP ---
Date of Procedure: 05/30/21 Procedure(s) Performed: PREOPERATIVE DIAGNOSIS: Infected dialysis catheter POSTOPERATIVE DIAGNOSIS: Same PROCEDURE: PD cath removal SURGEON: Lizbet EBL: 2 mL ANESTHESIA: Sedation and local COMPLICATIONS: None OPERATIVE PROCEDURE: Patient was placed in the supine position. The abdomen was prepped and draped in usual sterile fashion. The previous paramedian incision was re-incised after localizing the skin. The subcutaneous tissues were divided using electrocautery. Blunt dissection around the cuff that was present at the fascia and peritoneum took place. The cuff was fully mobilized. The catheter was removed from the perineal cavity. The outer cuff was dissected from the saphenous fascia using electrocautery. The catheter was cut on the other side of that cuff and the catheter was removed. The fascial defect was closed using a single [id number] 0 Vicryl stitch. The subcutaneous tissues were closed using 3-0 Vicryl sutures. The skin was very thin and required a skin stapler for reapproximation. Skin glue and sterile dressings were applied. DISPOSITION: Stable to recovery room
--- NOTE | 2021-05-30 18:55 | PN ---
PROGRESS NOTE DATE OF SERVICE: 05/30/2021 REASON FOR FOLLOWUP VISIT: PD catheter associated peritonitis. INTERVAL HISTORY: The patient is afebrile. The patient is breathing comfortably. The patient's abdominal pain is currently controlled. No further vomiting. No chest pain, shortness of breath or cough. No diarrhea. PHYSICAL EXAMINATION: Blood pressure is 95/63 with a pulse of 66, temp 97. She is 100% on 2 L nasal cannula. General description is a middle-aged female lying in bed in no distress. Respiratory system: Unlabored breathing, clear to auscultation anteriorly. Heart S1, S2. Regular rate and rhythm. Abdomen soft, mildly distended. No guarding or rigidity. No organomegaly. LABS: Hemoglobin 11.1, white count 8.8, creatinine is 4.53. DIAGNOSTIC IMPRESSION AND PLAN: Patient with PD catheter associated peritonitis. Culture positive for Staph epi and Enterococcus faecalis. Plan is for removal of the dialysis catheter and placement of hemodialysis catheter. Antibiotic was switched over to IV vancomycin. Discussed with the invasive physician. ERMIAS / IBRAHIMA: [id number] /
[2021-05-30] MEDS: SERTRALINE 25 MG TAB PO SCH (21:54)
[2021-05-30] MEDS: ATORVASTATIN 10 MG TAB PO SCH (21:54)
[2021-05-31] MEDS: PANTOPRAZOLE 40 MG TABLET PO SCH (06:52)
[2021-05-31] MEDS: SEVELAMER 800 MG TAB PO SCH ×3 (06:52→15:23)
[2021-05-31] MEDS: MIDODRINE 5 MG TAB PO SCH ×4 (06:52→20:19)
[2021-05-31] MEDS: LEVOTHYROXINE 112 MCG TAB PO SCH (06:52)
[2021-05-31] MEDS: FAMOTIDINE 20 MG TAB PO SCH (09:24)
[2021-05-31] MEDS: POTASSIUM CHLORIDE ER 20 MEQ TAB.ER PO SCH (09:24)
[2021-05-31] MEDS: allopurinoL 100 MG TAB PO SCH (09:24)
[2021-05-31] MEDS: MAGNESIUM OXIDE 400 MG TAB PO SCH (09:24)
[2021-05-31] MEDS: FOLIC ACID-VIT B COMPLEX-VIT C 1 CAP PO SCH (09:27)
[2021-05-31] MEDS ORDERED: LIDOCAINE 1% INJ 10MG/ML (20 ML MDV) ONE (11:19)
[2021-05-31] MEDS ORDERED: HEPARIN SODIUM 1,000 UN/ML (10ML VL) ONE (11:19)
[2021-05-31] MEDS ORDERED: SODIUM CHLORIDE 0.9% 1,000 ML IV ONE (11:21)
[2021-05-31] MEDS ORDERED: SODIUM CHLORIDE 0.9% 500 ML 500 ML IV ONE (11:21)
[2021-05-31] MEDS ORDERED: MIDAZOLAM 2 MG/2 ML VIAL IV ONE (11:43)
[2021-05-31] MEDS ORDERED: LIDOCAINE 1% INJ 10MG/ML (20 ML MDV) SQ ONE ×2 (11:43→12:11)
[2021-05-31] MEDS ORDERED: VANCOMYCIN 1,500 MG in SODIUM CHLORIDE 0.9% 250 ML IVPB ONE ×2 (12:00→20:00)
[2021-05-31] MEDS ORDERED: HEPARIN SODIUM 1,000 UN/ML (10ML VL) IV ONE (12:48)
--- NOTE | 2021-05-31 13:32 | IR ---
EXAMINATION TYPE: IR cvc insert central tunneled DATE OF EXAM: 05/31/2021 COMPARISON: NONE HISTORY: Fluoroscopy time. Fluoroscopy was provided to the referring clinician.
--- NOTE | 2021-05-31 14:12 | P.PN ---
Progress Note - Text Progress Note Date: 05/31/21 1 to see the patient. She was down apparently getting her permacath placed. Per nursing staff she is doing well. We will reevaluate tomorrow.
--- NOTE | 2021-05-31 14:45 | P.PN ---
Subjective Progress Note Date: 05/31/21 HISTORY OF PRESENT ILLNESS 56-year-old female with developmental delay who had history of end-stage renal disease on peritoneal dialysis, history of hypertension, hyperlipidemia, h ypothyroidism who had an infected left knee late last year had surgery and ended up going to rehab for long time was home for the last few weeks when patient developed to have significant change mental status with decreased oral intake with worsening symptoms overall for the last few days have been having fatigue tiredness not been eating or drinking no now moving. Also her dialysis has been getting quite bit worse patient apparently will be switch to hemodialysis was told need workup for fistula graft the left arm for possible hemodialysis. Family ended up bringing her to demurs department at [facility] where was seen and evaluated surprisingly found to have mildly elevated troponin with severe electrolyte imbalance with potassium of 2.1 only. Chest x-ray did not show any infection just atelectasis, COVID-19 was negative at the time. Patient was started on gentle hydration will be admitted to the hospital be seen nephrology and vascular, CK with troponin 3 will be done and patient will be seen cardiology further intervention after doing an echocardiogram will depend on the result. 05/26: Patient states that she is feeling better. No complaints or concerns. Plan is for patient to change from peritoneal dialysis to hemodialysis. Consult for nephrology and vascular surgery in place. Patient remains afebrile, heart rate 108, respirations 18, blood pressure 105/71 pulse ox 90% on room air. WC 10.8, hemoglobin 11.3, sodium 133, potassium 3.1, BUN 44, creatinine 5.15. 05/27, patient is currently nothing by mouth, for planned Port-A-Cath placement today, for the transfusion hemodialysis treatment, from a peritoneal dialysis regimen. Patient has dry mouth, no nausea no vomiting, no chest pain no shortness of breath, vitals are stable, 118/64, no fever, T-max of 97.0, heart rate is in the 70s. Pulse ox room air 98% 05/28: Patient is seen today on the cardiac stepdown unit. She is receiving intraperitoneal antibiotics. Patient is receiving regular CAPD managed by nephrology. Nephrology is planning on 2-3 weeks of antibiotic therapy. Tonsils been added for Dr. Doran 8. 05/29: Throughout the night, blood pressure was low down to 68/50, CAPD was held, patient received 500 mL bolus last evening a repeat this morning and we are ordering another 250 ML's now. Blood pressure has recovered somewhat at 90/60. Cortisol level was ordered and patient will be started on hydrocortisone 100 mg IV every 8 hours. Ensure clear and beneprotein added. Sodium was 132, potassium 3.0 will be replaced, BUN 33 creatinine 4.34, blood sugar 107. The plan to transfer patient to ICU but at this point, hold any transfer and continue current treatment. Dr. Randhawa has seen and reviewed patient, blood cultures and inflammatory markers pending. 05/30: Patient is scheduled to have CAPD catheter removed with Dr. Somers and have dialysis by Dr. Navarro. Blood pressures are improved. Hydrocortisone discontinued as cortisol level was at 30. Blood pressure 103/72, afebrile, heart rate in the 60s, pulse ox 100% on room air. 05/31: Patient had CAPD catheter removed and she is scheduled for dialysis catheter placement today with Dr. Navarro. Patient will be continued on hemodialysis with plan for subacute rehab for discharge once chair time has been obtained for dialysis. Patient is afebrile, heart rate 77, blood pressure 95/55, pulse ox 98% on room air. REVIEW OF SYSTEMS Constitutional: No fever, no chills, no night sweats. significant weight change or generalized weakness fatigue lethargy daytime sleepiness EENT: No headache. No blurred vision or double vision, no loss of vision. No loss of Hearing, no ringing in the ears, no dizziness. No nasal drainage or congestion. No epistaxis. No sore throat. Lungs: No shortness of breath, cough, no sputum production. No wheezing. Cardiovascular: No chest pain, no lower extremity edema. No palpitations. No paroxysmal nocturnal dyspnea. No orthopnea. No lightheadedness or dizziness. No syncopal episodes. Abdominal: No abdominal pain. No nausea, vomiting. No diarrhea. No constipation. No bloody or tarry stools.. No loss of appetite. Genitourinary: decrease in urine output. Musculoskeletal: No myalgias. No muscle weakness, no gait dysfunction, no frequent falls. No back pain. No neck pain. Integumentary: No wounds, no lesions. No rash or pruritus. No unusual bruising. No change in hair or nails. Neurologic: developmental delay with generalized weakness fatigue and lethargy. Psychiatric: No depression. No anxiety. No mood swings. Endocrine: No abnormal blood sugars. No weight change. PHYSICAL EXAMINATION Gen: This is well-developed does not look in any respiratory distress. HEENT: Head is atraumatic, normocephalic. Pupils equal, round. Sclerae is anicteric. NECK: Supple. No JVD. No lymphadenopathy. No thyromegaly. LUNGS: decreased breath some bilaterally with rhonchi no crackles or wheezes. HEART: Regular rate and rhythm. No murmur. ABDOMEN: Soft. Bowel sounds are present. CAPD catheter. EXTREMITIES: No pedal edema. No calf tenderness. scar on the left knee from previous surgery. NEUROLOGICAL: Patient is awake, alert and oriented to person and place with slight confusion. ASSESSMENT AND PLAN 1.metabolic encephalopathy secondary to PD catheter-associated peritonitis. Patient is to continue CAPD antibiotics, consult with Dr. Edis lawson. CAPD catheter removed and Dr. Navarro will place dialysis catheter today 2 elevated troponin and possible non-ST MN: CK with troponin 3 will be done, consult cardiology echocardiogram will be done based on the results decide on further management including if needed to do any intervention. 3 end-stage renal disease on CAPD currently patient apparently been tried to switch to hemodialysis consult nephrology will continue CAPD for now until her dialysis line is on board when patient can be switched to hemodialysis. 4 hypertension: Patient blood pressure has been slightly bit low she is using midodrine 10 mg 3 times a day. 5 hypothyroidism: Continue patient on levothyroxine 112 g daily. 6 hyperlipidemia: Has been on atorvastatin 10 mg a day. 7 chronic gout: Patient has been on Zyloprim 100 mg daily. 8 electrolyte imbalance with severe hypokalemia: Patient has been on Klor-Con 20 me daily we'll titrate dose up to 20 mg 3 times a day for now recheck potassium level replacement will be done. 9 chronic anemia: Has been on iron and Epogen. 10 infected left knee post surgery patient left knee is non-ambulatory currently she need help will consider physical therapy the patient therapy. 11 severe dehydration: Continue gentle hydration for now watch for any fluid overload. 12 GI prophylaxis: Patient be on Pepcid 20 mg daily. 13 DVT prophylaxis: Knee-high ANDRE hose and Venodyne boots if needed subcu heparin will be done. 14. COVID-19 testing.was negative. 15. Hypokalemia. Potassium chloride 10 mEq IV piggyback times 4, repeat BMP in the a.m. 16. Hypovolemic shock it is post multiple fluid boluses, continue to hold CAPD as advised by nephrology, Solu-Cortef discontinued, Ensure and beneprotein added. No need to transfer to ICU at this point. Discharge plan:subacute rehab at [facility] Impression and plan of care have been directed as dictated by the signing physician. Kianna Don nurse practitioner acting as scribe for signing physician. Objective - Vital Signs Vital signs: Vital Signs Temp 96.6 F L 05/31/21 08:00 Pulse 77 05/31/21 08:00 Resp 16 05/31/21 08:00 BP 95/55 05/31/21 08:00 Pulse Ox 98 05/31/21 08:00 Intake & Output 05/30/21 05/31/21 05/31/21 18:59 06:59 18:59 Intake Total 120 120 Output Total 3 Balance 117 120 Weight 77 kg Intake: IV 120 Oral 120 Output: Urine 1 Stool 0 Urine/Stool Mix 0 Estimated Blood Loss 2 Other: Voiding Method Diaper Diaper Incontinent Incontinent # Voids 0 # Bowel Movements 0 1 - Labs CBC & Chem 7: 05/30/21 10:47 05/31/21 09:45 Labs: Abnormal Lab Results - Last 24 Hours (Table) 05/30/21 05/30/21 05/31/21 Range/Units 10:47 10:47 09:45 WBC 12.8 H (3.8-10.6) k/uL RBC 3.05 L (3.80-5.40) m/uL Hgb 9.8 L D (11.4-16.0) gm/dL Hct 30.8 L (34.0-46.0) % MCV 101.1 H (80.0-100.0) fL RDW 16.9 H (11.5-15.5) % Neutrophils # (Manual) 9.70 H (1.3-7.7) k/uL Metamyelocytes # (Man) 0.13 H (0) k/uL Myelocytes # (Manual) 0.26 H (0) k/uL Sodium 133 L (137-145) mmol/L Chloride 108 H (98-107) mmol/L Carbon Dioxide 19 L (22-30) mmol/L BUN 33 H (7-17) mg/dL Creatinine 4.53 H 4.86 H (0.52-1.04) mg/dL Glucose 105 H (74-99) mg/dL Calcium 8.2 L (8.4-10.2) mg/dL Microbiology - Last 24 Hours (Table) 05/28/21 12:57 Blood Culture - Preliminary Blood No Growth after 48 hours 05/28/21 12:12 Gram Stain - Preliminary Peritoneal Fluid Body Fluid Culture - Preliminary Group D Enterococcus
[2021-05-31 15:44] LABS: Hepatitis B Surface AB- Quant 3.5 mIU/mL; Hepatitis B Surface Antibody Nonreactive (Nonreactive); Hepatitis B Surface Antigen Nonreactive (Nonreactive)
--- NOTE | 2021-05-31 17:44 | PN ---
PROGRESS NOTE DATE OF SERVICE: 05/31/2021 REASON FOR FOLLOWUP: PD catheter associated peritonitis ( ) Enterococcus faecalis. INTERIM HISTORY: The patient is afebrile. The patient is breathing comfortably. The patient denies having any chest pain, shortness of breath or cough. Abdominal pain is currently controlled. No nausea, vomiting or diarrhea. PHYSICAL EXAMINATION: Blood pressure 101/69 with a pulse of 71, temperature 97.5. middle-aged female lying in bed in no distress. She is ( ) on room air. General description is a middle-aged female lying in bed in no distress. Respiratory system: Unlabored breathing, decreased intensity of the breath sounds, no wheeze. Heart S1, S2. Regular rate and rhythm. Abdomen soft, no tenderness. LABS: Hemoglobin 9.1, white count 12.8, creatinine 4.8. DIAGNOSTIC IMPRESSION AND PLAN: Patient with Staphylococcus epi and Enterococcus faecalis PD catheter associated peritonitis. Blood cultures are negative. Status post removal of the dialysis catheter. Patient to continue vancomycin ( ). Continue supportive care. MMODL / IJN: [id number] /
--- NOTE | 2021-05-31 18:05 | PN ---
PROGRESS NOTE Patient is seen for followup for end-stage renal disease. Patient had her PD catheter removed yesterday. This morning her blood pressure remains slightly on the lower side with systolic in the 90 range, occasionally going down to 87 earlier this morning. This morning patient is awake, comfortable. EXAMINATION: Blood pressure was 95/55, heart rate 77 per minute, she is afebrile. Examination of the heart S1, S2. Examination of the lungs, bilateral breath sounds are heard. Decreased breath sounds at the bases. Abdomen is soft, tenderness noted. Examination of lower extremities shows no significant edema. LAB: Show hemoglobin 9.8, sodium 133, potassium 4.5 from yesterday. ASSESSMENT: 1. End-stage renal disease on peritoneal dialysis with CAPD peritonitis, status post removal of PD catheter yesterday on 05/30/2021 due to ongoing infection and hypotension with persistent infection with Enterococcus faecalis on the fluid cultures. 2. Hypotension secondary to underlying infection. Cortisol level was not low. 3. Hypothyroidism. 4. Gastroesophageal reflux disease. 5. Hypokalemia associated with decreased oral intake status post replacement. PLAN: Hemodialysis today. Patient will be switched over to hemodialysis on a Thursday, Thursday, Thursday schedule. No significant ultrafiltration. MMODL / IJN: [id number] /
[2021-05-31] MEDS: SERTRALINE 25 MG TAB PO SCH (20:19)
[2021-05-31] MEDS: ATORVASTATIN 10 MG TAB PO SCH (20:19)
--- NOTE | 2021-05-31 22:32 | PCN ---
PROCEDURE NOTE PREOPERATIVE DIAGNOSIS: Acute on chronic renal failure. POSTOPERATIVE DIAGNOSES: Acute on chronic renal failure. Infected peritoneal dialysis catheter which has been removed. PROCEDURE PERFORMED: 1. Ultrasound checked the right IJ is occluded. 2. Attempted left jugular approach and found to have a central stenosis. 3. Inferior vena cavagram and placement of a 28 cm dialysis catheter, right femoral approach. SEDATION TIME: 45 minutes. PROCEDURE DESCRIPTION: This patient has history of chronic renal failure. The patient is on peritoneal dialysis catheter infected which has been removed. The patient had multiple catheters placed in on the right side in the past. Her ultrasound was checked and the right IJ was occluded. Attempt to go through the left jugular approach. Ultrasound-guided. Micropuncture guidewire was passed. Then we could not advance the guidewire. We did inject the dye. Patient has a central stenosis. The vena cava was small in caliber. After that, we prepped the right groin and ultrasound guided micropuncture introduced to the right common femoral vein. Micropuncture guidewire was passed and 4-[place] dilator advanced on top of the guidewire. Then we passed a regular guidewire and a tunnel was created. Through the tunnel, we brought a 28 cm permanent dialysis catheter. After that we did the inferior vena cavogram. Inferior vena cava shows normal. Then we placed the dilator and then we placed a sheath. Through the sheath, we introduced the dialysis catheter. The tip of the catheter in the inferior vena cava. Flushed with heparin saline and hep-locked, secured with 3-0 nylon. Dressing applied. Patient tolerated the procedure well. MMODL / IJN: [id number] /
[2021-06-01] MEDS: MIDODRINE 5 MG TAB PO SCH ×3 (06:20→17:52)
[2021-06-01] MEDS: LEVOTHYROXINE 112 MCG TAB PO SCH (06:20)
[2021-06-01] MEDS: SEVELAMER 800 MG TAB PO SCH ×3 (06:20→17:52)
[2021-06-01] MEDS: PANTOPRAZOLE 40 MG TABLET PO SCH (06:20)
[2021-06-01] MEDS: MAGNESIUM OXIDE 400 MG TAB PO SCH (08:39)
[2021-06-01] MEDS: FOLIC ACID-VIT B COMPLEX-VIT C 1 CAP PO SCH (08:39)
[2021-06-01] MEDS: FAMOTIDINE 20 MG TAB PO SCH (08:39)
[2021-06-01] MEDS: allopurinoL 100 MG TAB PO SCH (08:39)
[2021-06-01] MEDS: POTASSIUM CHLORIDE ER 20 MEQ TAB.ER PO SCH (08:40)
--- NOTE | 2021-06-01 12:11 | PN ---
PROGRESS NOTE Patient is seen for followup for end-stage renal disease. Patient had hemodialysis yesterday. She could not have an IJ catheter placed and instead has a right femoral catheter. She was dialyzed yesterday. Blood pressure remains on the lower side. On examination today, blood pressure was 86/51, heart rate 105 per minute. Patient is afebrile. She is comfortable, not in any acute distress. EXAMINATION OF THE HEART: S1 and S2. EXAMINATION OF LUNGS: Bilateral breath sounds are heard. Abdomen is soft, non-tender. Examination of lower extremities shows no significant edema. Labs from 05/30 show potassium 4.5, sodium 133. ASSESSMENT: 1. End-stage renal disease, on hemodialysis, currently on a Thursday, Thursday, Thursday schedule. Patient was on peritoneal dialysis and switched over to hemodialysis due to PD peritonitis. Patient had her hemodialysis treatment yesterday. 2. Enterococcus peritonitis, maintained on vancomycin. Vancomycin level was elevated. Pharmacy is dosing. 3. Persistent hypotension associated with underlying infection. Cortisol was not low. Patient is maintained on midodrine, which I will continue. 4. Chronic kidney disease mineral bone disorder, maintained on Renvela. PLAN: Continue off of PD. PD catheter was removed on 05/30/2021. Continue with hemodialysis for now. Plan for treatment on Thursday06/03/2021. MMODL / IJN: [id number] /
--- NOTE | 2021-06-01 13:02 | P.PN ---
Subjective Progress Note Date: 06/01/21 HISTORY OF PRESENT ILLNESS 56-year-old female with developmental delay who had history of end-stage renal disease on peritoneal dialysis, history of hypertension, hyperlipidemia, hypothyroidism who had an infected left knee late last year had surgery and ended up going to rehab for long time was home for the last few weeks when patient developed to have significant change mental status with decreased oral intake with worsening symptoms overall for the last few days have been having fatigue tiredness not been eating or drinking no now moving. Also her dialysis has been getting quite bit worse patient apparently will be switch to hemodialysis was told need workup for fistula graft the left arm for possible hemodialysis. Family ended up bringing her to demurs department at [facility] where was seen and evaluated surprisingly found to have mildly elevated troponin with severe electrolyte imbalance with potassium of 2.1 only. Chest x-ray did not show any infection just atelectasis, COVID-19 was negative at the time. Patient was started on gentle hydration will be admitted to the hospital be seen nephrology and vascular, CK with troponin 3 will be done and patient will be seen cardiology further intervention after doing an echocardiogram will depend on the result. 05/26: Patient states that she is feeling better. No complaints or concerns. Plan is for patient to change from peritoneal dialysis to hemodialysis. Consult for nephrology and vascular surgery in place. Patient remains afebrile, heart rate 108, respirations 18, blood pressure 105/71 pulse ox 90% on room air. WC 10.8, hemoglobin 11.3, sodium 133, potassium 3.1, BUN 44, creatinine 5.15. 05/27, patient is currently nothing by mouth, for planned Port-A-Cath placement today, for the transfusion hemodialysis treatment, from a peritoneal dialysis regimen. Patient has dry mouth, no nausea no vomiting, no chest pain no shortness of breath, vitals are stable, 118/64, no fever, T-max of 97.0, heart rate is in the 70s. Pulse ox room air 98% 05/28: Patient is seen today on the cardiac stepdown unit. She is receiving intraperitoneal antibiotics. Patient is receiving regular CAPD managed by nephrology. Nephrology is planning on 2-3 weeks of antibiotic therapy. Tonsils been added for Dr. Dorna 8. 05/29: Throughout the night, blood pressure was low down to 68/50, CAPD was held, patient received 500 mL bolus last evening a repeat this morning and we are ordering another 250 ML's now. Blood pressure has recovered somewhat at 90/60. Cortisol level was ordered and patient will be started on hydrocortisone 100 mg IV every 8 hours. Ensure clear and beneprotein added. Sodium was 132, potassium 3.0 will be replaced, BUN 33 creatinine 4.34, blood sugar 107. The plan to transfer patient to ICU but at this point, hold any transfer and continue current treatment. Dr. Randhawa has seen and reviewed patient, blood cultures and inflammatory markers pending. 05/30: Patient is scheduled to have CAPD catheter removed with Dr. Somers and have dialysis by Dr. Navarro. Blood pressures are improved. Hydrocortisone discontinued as cortisol level was at 30. Blood pressure 103/72, afebrile, heart rate in the 60s, pulse ox 100% on room air. 05/31: Patient had CAPD catheter removed and she is scheduled for dialysis catheter placement today with Dr. Navarro. Patient will be continued on hemodialysis with plan for subacute rehab for discharge once chair time has been obtained for dialysis. Patient is afebrile, heart rate 77, blood pressure 95/55, pulse ox 98% on room air. : Right common femoral approach for hemodialysis access, was placed on 05/[address] Navarro, antibiotic needs to be finalized by Dr. Randhawa, for peritonitis caused by the peritoneal catheter which has been discontinued also on 05/31 2021. Anticipate discharge to subacute rehab on Thursday, brother is at bedside today, updated regarding treatment plan, no fever no chills, patient has been drowsy today, most likely secondary to pain meds, or lack of sleep. Feedings are minimal today, and is being fed by the brother without any difficulties. No fevers, no aspiration REVIEW OF SYSTEMS Constitutional: No fever, no chills, no night sweats. significant weight change or generalized weakness fatigue lethargy daytime sleepiness EENT: No headache. No blurred vision or double vision, no loss of vision. No loss of Hearing, no ringing in the ears, no dizziness. No nasal drainage or congestion. No epistaxis. No sore throat. Lungs: No shortness of breath, cough, no sputum production. No wheezing. Cardiovascular: No chest pain, no lower extremity edema. No palpitations. No paroxysmal nocturnal dyspnea. No orthopnea. No lightheadedness or dizziness. No syncopal episodes. Abdominal: No abdominal pain. No nausea, vomiting. No diarrhea. No constipation. No bloody or tarry stools.. No loss of appetite. Genitourinary: decrease in urine output. Musculoskeletal: No myalgias. No muscle weakness, no gait dysfunction, no frequent falls. No back pain. No neck pain. Integumentary: No wounds, no lesions. No rash or pruritus. No unusual bruising. No change in hair or nails. Neurologic: developmental delay with generalized weakness fatigue and lethargy. Psychiatric: No depression. No anxiety. No mood swings. Endocrine: No abnormal blood sugars. No weight change. PHYSICAL EXAMINATION Gen: This is well-developed does not look in any respiratory distress. HEENT: Head is atraumatic, normocephalic. Pupils equal, round. Sclerae is anicteric. NECK: Supple. No JVD. No lymphadenopathy. No thyromegaly. LUNGS: decreased breath some bilaterally with rhonchi no crackles or wheezes. HEART: Regular rate and rhythm. No murmur. ABDOMEN: Soft. Bowel sounds are present. CAPD catheter. EXTREMITIES: No pedal edema. No calf tenderness. scar on the left knee from previous surgery. NEUROLOGICAL: Patient is awake, alert and oriented to person and place with slight confusion. ASSESSMENT AND PLAN 1.metabolic encephalopathy secondary to PD catheter-associated peritonitis. Patient is to continue CAPD antibiotics, consult with Dr. Edis lawson. CAPD catheter removed 05/[address] Navarro will place dialysis cathete 2021 2 elevated troponin and possible non-ST AL: CK with troponin 3 will be done, consult cardiology echocardiogram will be done based on the results decide on further management including if needed to do any intervention. 3 end-stage renal disease on CAPD currently patient apparently been tried to switch to hemodialysis consult nephrology will continue CAPD for now until her dialysis line is on board when patient can be switched to hemodialysis. 4 hypertension: Patient blood pressure has been slightly bit low she is using midodrine 10 mg 3 times a day. 5 hypothyroidism: Continue patient on levothyroxine 112 g daily. 6 hyperlipidemia: Has been on atorvastatin 10 mg a day. 7 chronic gout: Patient has been on Zyloprim 100 mg daily. 8 electrolyte imbalance with severe hypokalemia: Patient has been on Klor-Con 20 me daily we'll titrate dose up to 20 mg 3 times a day for now recheck potassium level replacement will be done. 9 chronic anemia: Has been on iron and Epogen. 10 infected left knee post surgery patient left knee is non-ambulatory currently she need help will consider physical therapy the patient therapy. 11 severe dehydration: Continue gentle hydration for now watch for any fluid overload. 12 GI prophylaxis: Patient be on Pepcid 20 mg daily. 13 DVT prophylaxis: Knee-high ANDRE hose and Venodyne boots if needed subcu hepar in will be done. 14. COVID-19 testing.was negative. 15. Hypokalemia. Potassium chloride 10 mEq IV piggyback times 4, repeat BMP in the a.m. 16. Hypovolemic shock it is post multiple fluid boluses, continue to hold CAPD as advised by nephrology, Solu-Cortef discontinued, Ensure and beneprotein added. No need to transfer to ICU at this point. Discharge plan:subacute rehab at [facility] Laboratory Results - Last 24 Hours 05/31/21 06/01/21 06/01/21 09:45 08:21 08:21 Creatinine 2.62 H Est GFR (CKD-EPI)AfAm 23 Est GFR (CKD-EPI)NonAf 20 Random Vancomycin 48.5 H* Hep Bs Antigen Nonreactive Hep Bs Antibody Nonreactive Hep Bs Antibody, Quant 3.5 Hep B Core Total Ab Nonreactive Current Medications Allopurinol (Allopurinol 100 Mg Tab) 100 mg PO DAILY [facility] Last Admin: 06/01/21 08:39 Dose: 100 mg Documented by: Atorvastatin Calcium (Atorvastatin 10 Mg Tab) 10 mg PO [facility] Last Admin: 05/31/21 20:19 Dose: 10 mg Documented by: Famotidine (Famotidine 20 Mg Tab) 20 mg PO DAILY [facility] Last Admin: 06/01/21 08:39 Dose: 20 mg Documented by: Levothyroxine Sodium (Levothyroxine 112 Mcg Tab) 112 mcg PO AC-BRKFST [facility] Last Admin: 06/01/21 06:20 Dose: 112 mcg Documented by: Magnesium Oxide (Magnesium Oxide 400 Mg Tab) 400 mg PO DAILY [facility] Last Admin: 06/01/21 08:39 Dose: 400 mg Documented by: Midodrine (Midodrine 5 Mg Tab) 10 mg PO AC-TID [facility] Last Admin: 06/01/21 12:21 Dose: 10 mg Documented by: Miscellaneous Information ([facility] each MISCELLANE DIRECTED PRN; Protocol PRN Reason: Per Protocol Multivit/Ca Carb/B Cmplx/FA/Prenat (Folic Acid-Vit B Complex-Vit C 1 Cap) 1 each PO DAILY [facility] Last Admin: 06/01/21 08:39 Dose: 1 each Documented by: Naloxone HCl (Naloxone 0.4 Mg/Ml 1 Ml Vial) 0.2 mg IV Q2M PRN PRN Reason: Opioid Reversal Ondansetron HCl (Ondansetron Odt 8 Mg Tab.Rapdis) 8 mg PO Q8H PRN PRN Reason: Nausea Pantoprazole Sodium (Pantoprazole 40 Mg Tablet) 40 mg PO AC-BRKFST [facility] Last Admin: 06/01/21 06:20 Dose: 40 mg Documented by: Sertraline HCl (Sertraline 25 Mg Tab) 25 mg PO [facility] Last Admin: 05/31/21 20:19 Dose: 25 mg Documented by: Sevelamer Carbonate (Sevelamer 800 Mg Tab) 800 mg PO AC-TID [facility] Last Admin: 06/01/21 12:20 Dose: 800 mg Documented by: Vital Signs Temp 97.2 F L 06/01/21 08:00 Pulse 111 H 06/01/21 12:00 Resp 16 06/01/21 12:00 BP 84/51 06/01/21 12:00 Pulse Ox 95 06/01/21 12:00 Intake & Output 05/31/21 06/01/21 06/01/21 18:59 06:59 18:59 Intake Total 700 50 Output Total 0 0 Balance 700 50 Intake: IV 250 Oral 50 Hemodialysis 450 Output: Stool 0 0 Other: Voiding Method Diaper Diaper Diaper Incontinent Incontinent Incontinent Objective - Vital Signs Vital signs: Vital Signs Temp 97.2 F L 06/01/21 08:00 Pulse 111 H 06/01/21 12:00 Resp 16 06/01/21 12:00 BP 84/51 06/01/21 12:00 Pulse Ox 95 06/01/21 12:00 Intake & Output 05/31/21 06/01/21 06/01/21 18:59 06:59 18:59 Intake Total 700 50 Output Total 0 0 Balance 700 50 Intake: IV 250 Oral 50 Hemodialysis 450 Output: Stool 0 0 Other: Voiding Method Diaper Diaper Diaper Incontinent Incontinent Incontinent - Labs CBC & Chem 7: 05/30/21 10:47 06/01/21 08:21 Labs: Abnormal Lab Results - Last 24 Hours (Table) 06/01/21 06/01/21 Range/Units 08:21 08:21 Creatinine 2.62 H (0.52-1.04) mg/dL Random Vancomycin 48.5 H* ug/mL Microbiology - Last 24 Hours (Table) 05/28/21 12:12 Gram Stain - Final Peritoneal Fluid Body Fluid Culture - Final Enterococcus faecalis Staphylococcus epidermidis 05/28/21 12:57 Blood Culture - Preliminary Blood No Growth after 72 hours
--- NOTE | 2021-06-01 16:48 | PN ---
PROGRESS NOTE DATE OF SERVICE: 06/01/2021 REASON FOR FOLLOWUP VISIT: PD catheter associated peritonitis. INTERVAL HISTORY: The patient is afebrile. The patient is breathing comfortably. No chest pain, shortness of breath or cough. Abdominal pain is currently controlled. No further vomiting or diarrhea. PHYSICAL EXAMINATION: Blood pressure 86/51, pulse of 105, temperature 97.2. She is 100% on room air. General description is a middle-aged female lying in bed in no distress. Respiratory system: Unlabored breathing, decreased intensity of breath sounds, no wheeze. Heart S1, S2. Regular rate and rhythm. Abdomen soft, no tenderness. No guarding or rigidity. LABS: Hemoglobin is 9.8, white count 12.8, creatinine 4.53. Vanco random is 14.5. DIAGNOSTIC IMPRESSION AND PLAN: Patient with PD catheter associated peritonitis, culture positive for Enterococcus faecalis and staph epi. The patient is on vancomycin, pharmacy to dose. Dose needs to be adjusted to keep the trough around 15 and monitor clinical course closely. MMMAKENZIEL / DINAN: [id number] / MTDD
[2021-06-01 18:06] LABS: Glucose,Whole Blood 84 mg/dL (75-99)
[2021-06-01] MEDS ORDERED: HYDROmorphone 0.5 MG/0.5 ML SYRINGE IVP PRN (18:29)
[2021-06-01] MEDS ORDERED: SODIUM CHLORIDE 0.9% 250 ML IV ONE (18:30)
[2021-06-01] MEDS: NALOXONE 0.4 MG/ML 1 ML VIAL IV PRN ×2 (18:50→18:54)
[2021-06-01 19:06] LABS: ABG Base Excess 3.6 mmol/L; ABG HCO3 26 mmol/L (21-25); ABG PCO2 32 mmHg (35-45); ABG PH 7.53 (7.35-7.45); ABG PO2 368 mmHg (83-108); ABG TCO2 27 mmol/L (19-24); Allen Test Performed? Yes
[2021-06-01] MEDS: SERTRALINE 25 MG TAB PO SCH ×2 (20:03→21:41)
[2021-06-01] MEDS: ATORVASTATIN 10 MG TAB PO SCH ×2 (20:03→21:41)
[2021-06-01] MEDS ORDERED: ACETAMINOPHEN TAB 325 MG TAB PO PRN (20:04)
[2021-06-01 20:27] LABS: Glucose,Whole Blood 100 mg/dL (75-99)
[2021-06-01 20:48] LABS: Anisocytosis Slight; HCT 30.2 % (34.0-46.0); HGB 9.4 gm/dL (11.4-16.0); Hypochromasia Moderate; MCH 31.7 pg (25.0-35.0); Macrocytosis Slight; Mean Platelet Volume 10.8; RBC 2.96 m/uL (3.80-5.40); RDW 16.8 % (11.5-15.5); WBC 11.6 k/uL (3.8-10.6)
[2021-06-01 20:50] LABS: Platelet Count 94 k/uL (150-450)
[2021-06-01 20:54] LABS: Albumin 1.7 g/dL (3.5-5.0); Calcium 8.3 mg/dL (8.4-10.2); Total Bilirubin 0.6 mg/dL (0.2-1.3); Total Protein 4.4 g/dL (6.3-8.2)
[2021-06-01 21:07] LABS: Potassium 5.2 mmol/L (3.5-5.1)
--- NOTE | 2021-06-01 21:20 | XR ---
EXAMINATION TYPE: XR chest 1V portable DATE OF EXAM: 06/01/2021 9:01 PM COMPARISON: Chest radiograph 05/25/2021 CLINICAL INDICATION:Female, 56 years old with history of possible sepsis;, TECHNIQUE: Frontal and lateral views of the chest. FINDINGS: Lungs/Pleura: Mild streaky atelectasis seen within the bases. There is no evidence of pleural effusio n, focal consolidation, or pneumothorax. Pulmonary vascularity: Unremarkable. Heart/mediastinum: Cardiomediastinal silhouette is unremarkable. Musculoskeletal: No acute osseous pathology. IMPRESSION: No acute cardiopulmonary disease/process.
--- NOTE | 2021-06-01 21:51 | CT ---
EXAMINATION TYPE: CT brain wo con CT DLP: 1095.4 mGycm, Automated exposure control for dose reduction was used. DATE OF EXAM: 06/01/2021 9:33 PM COMPARISON: CLINICAL INDICATION:Female, 56 years old with history of Encephalopathy; TECHNIQUE: Brain: Multiple axial CT images of the brain were obtained without IV contrast. FINDINGS: Brain: Extra-axial spaces: No abnormal extra-axial fluid collections. Ventricular system: dilation of the posterior horns of lateral ventricle secondary to absent corpus c allosum. Cerebral parenchyma: Congenitally absent corpus callosum. There is a focus of patricio-white matter diffe rentiation loss within the right frontal lobe. No acute intraparenchymal hemorrhage or mass effect. The remainder of the patricio-white junctions are well differentiated. Scattered hypoattenuating areas ar e seen within the white matter. Cerebellum: Unremarkable. Mass effect: No evidence of midline shift. Intracranial vasculature: Atherosclerotic calcifications of the intracranial vessels. Soft tissues: Normal. Calvarium/osseous structures: No depressed skull fracture. Nonfusion of the posterior arch of C1. Paranasal sinuses and mastoid air cells: Clear. Visualized orbits: Orbital contents are intact. IMPRESSION: 1. Age-indeterminate right frontal lobe CVA. Consider further evaluation with MRI if clinically warra nted. 2. Congenitally absent corpus callosum. 3. Scattered nonspecific white matter changes likely secondary to chronic microangiopathy.
[2021-06-01 22:03] LABS: Anisocytosis (M) Present; Band Neutrophils % 20 %; Lymphocytes # (M) 1.74 k/uL (1.0-4.8); Metamyelocytes # (M) 0.12 k/uL (0); Metamyelocytes % 1 %; Monocytes # (M) 0.58 k/uL (0-1.0); Neutrophils % (M) 60 %; Nucleated Red Blood Cells 0 /100 WBC (0-0); Total Cells Counted 200
[2021-06-02 00:29] LABS: ABG Base Excess 3.3 mmol/L; ABG HCO3 27 mmol/L (21-25); ABG Oxygen Saturation 99.4 % (94-97); ABG PCO2 35 mmHg (35-45); ABG PH 7.49 (7.35-7.45); ABG PO2 168 mmHg (83-108); ABG TCO2 28 mmol/L (19-24); Allen Test Performed? Yes
[2021-06-02] MEDS: PANTOPRAZOLE 40 MG TABLET PO SCH (09:17)
[2021-06-02] MEDS: LEVOTHYROXINE 112 MCG TAB PO SCH (09:17)
[2021-06-02] MEDS: FOLIC ACID-VIT B COMPLEX-VIT C 1 CAP PO SCH (09:18)
[2021-06-02] MEDS: FAMOTIDINE 20 MG TAB PO SCH (09:18)
[2021-06-02] MEDS: allopurinoL 100 MG TAB PO SCH (09:18)
[2021-06-02] MEDS: MAGNESIUM OXIDE 400 MG TAB PO SCH (09:18)
[2021-06-02] MEDS: SEVELAMER 800 MG TAB PO SCH ×3 (09:18→17:55)
--- NOTE | 2021-06-02 10:17 | CT ---
EXAMINATION TYPE: CT brain wo con DATE OF EXAM: 06/02/2021 COMPARISON: 06/01/1999 HISTORY: Acute altered mental status, poss. left MCA infarct CT DLP: 1051.4 mGycm Automated exposure control for dose reduction was used. FINDINGS: There is absence of agenesis of corpus callosum. Nonspecific white matter changes are seen suggestive of remote ischemia. However, there appears to be an area of diminished attenuation with sulcal effac ement involving the left frontal parietal lobe suggestive of acute ischemia. Diminished attenuation i n the high left parietal region also suspicious for recent ischemia. No acute hemorrhage or mass effe ct.. Changes of chronic mastoiditis. Calvarium prominent cisterna magna is craniocervical junction maintai marcus. IMPRESSION: 1. Findings are suspicious for acute ischemia left frontal and parietal lobe with no midline shift. 2. Agenesis of the corpus callosum. Report called to patient's nurse at 10:05 AM 06/02/2021
--- NOTE | 2021-06-02 11:36 | P.PN ---
Progress Note - Text Progress Note Date: 06/01/21 Patient name stable. She has had her CAPD cath removed. Abdomen soft incision is clean and intact
--- NOTE | 2021-06-02 11:36 | P.PN ---
Progress Note - Text Progress Note Date: 06/02/21 Patient been stable. Abdomen soft. Incisions clean and intact. Continue supportive care. Status post removal of CAPD catheter
[2021-06-02] MEDS ORDERED: ASPIRIN 81 MG PO SCH (12:15)
--- NOTE | 2021-06-02 12:32 | P.CNNES ---
History of Present Illness Consult date: 06/02/21 Reason for Consult: acute mental status changes, rule out stroke History of Present Illness: The patient is a 56-year-old female who is seen in neurologic consultation on June 02, 2021, via telemedicine. History is obtained from the chart as well as the nurse at the bedside. She reports that at approximately 9:30 yesterday night, the patient's mental status changed. She became nonverbal. According to this nurse, she is taking care of the patient before and the patient has been able to speak in short sentences and follow instructions. She has been awake and alert. The patient has been in the hospital for several days because of infection involving her dialysis catheter. The patient has known developmental delay and a history of end-stage renal disease on peritoneal dialysis, history of hypertension, hyperlipidemia, hypothyroidism who had an infected left knee late last year had surgery and ended up going to rehab for long time was home for the last few weeks when patient developed to have significant change mental status with decreased oral intake with worsening symptoms overall for the last few days have been having fatigue tiredness not been eating or drinking no now moving. Also her dialysis has been getting quite bit worse patient apparently will be switch to hemodialysis was told need workup for fistula graft the left arm for possible hemodialysis. Family ended up bringing her to demurs department at [facility] where was seen and evaluated surprisingly found to have mildly elevated troponin with severe electrolyte imbalance with potassium of 2.1 only. Chest x-ray did not show any infection just atelectasis, COVID-19 was negative at the time. Patient was started on gentle hydration will be admitted to the hospital be seen nephrology and vascular. Port-A-Cath was placed for the transfusion hemodialysis treatment, from a peritoneal dialysis regimen. The patient began receiving intraperitoneal antibiotics, with plan for treatment lasting 2-3 weeks. The patient had episodes of hypotension with blood pressures as low as 68/50. The patient had CAPD catheter removed and dialysis catheter was placed. The patient was continued on hemodialysis, with catheter placement in the right femoral. Review of Systems ROS unobtainable: due to mental status Past Medical History Past Medical History: Hyperlipidemia, Hypertension, Renal Disease, Thyroid Disorder Additional Past Medical History / Comment(s): developmentally delayed, ESRD with nightly peritoneal dialysis, anemia, mineral bone disease, reverse deep palate/ some speech issues, swelling legs and ankles, hx of fx rt leg, hypothyroid, degenerative joint disease. History of Any Multi-Drug Resistant Organisms: None Reported Past Surgical History: Ear Surgery, Joint Replacement Additional Past Surgical History / Comment(s): 09/25/20 total L knee arthroplasty, 09/30/20 permacath R chest, 01/13/20 peritoneal dialysis catheter, septoplasty, bilateral myringotomy/tubes, oral surgery, Past Anesthesia/Blood Transfusion Reactions: Family History of Problems w/ Anesthesia Additional Past Anesthesia/Blood Transfusion Reaction / Comment(s): mom-ponv Past Psychological History: No Psychological Hx Reported Smoking Status: Never smoker Past Alcohol Use History: None Reported Past Drug Use History: None Reported - Past Family History Father Family Medical History: Cancer Additional Family Medical History / Comment(s): Father of esophageal cancer. Mother Family Medical History: Cancer, Hyperlipidemia, Hypertension, Osteoarthritis (OA) Additional Family Medical History / Comment(s): Tip of R index finger cancer/amputated. Medications and Allergies Home Medications Medication Instructions Recorded Confirmed Type Levothyroxine Sodium [Synthroid] 112 mcg PO AC-BRKFST 01/10/20 05/25/21 History allopurinoL [Zyloprim] 100 mg PO DAILY 10/16/20 05/25/21 History Atorvastatin [Lipitor] 10 mg PO HS 10/31/20 05/25/21 History Sevelamer [Renvela] 800 mg PO AC-TID 01/11/21 05/25/21 History Epoetin Felipe [Epogen] 20,000 unit SQ Q7D 05/25/21 05/25/21 History Famotidine [Pepcid] 20 mg PO DAILY 05/25/21 05/25/21 History Gentamicin Sulfate [Gentamicin 1 applic TOPICAL DAILY PRN 05/25/21 05/25/21 History Sulfate 0.1%] Magnesium Oxide [Evans] 500 mg PO DAILY 05/25/21 05/25/21 History Midodrine HCl [ProAmatine] 10 mg PO AC-TID 05/25/21 05/25/21 History Ondansetron Odt [Zofran Odt] 8 mg PO Q8H PRN 05/25/21 05/25/21 History Potassium Chloride ER [K-Dur 20] 20 meq PO DAILY 05/25/21 05/25/21 History Danna-Tino 1 tab PO DAILY 05/25/21 05/25/21 History Sertraline [Zoloft] 25 mg PO HS 05/25/21 05/25/21 History Allergies Allergy/AdvReac Type Severity Reaction Status Date / Time lisinopril Allergy Unknown Verified 05/25/21 18:30 Physical Examination - Vital Signs Vital Signs: Vital Signs Temp Pulse Resp BP Pulse Ox 06/02/21 04:37 97.8 F 112 H 16 99/65 99 06/02/21 02:38 16 06/02/21 00:08 99.0 F 63 16 95/60 100 06/01/21 21:07 100 06/01/21 20:18 98.3 F 116 H 18 84/50 94 L 06/01/21 18:54 12 06/01/21 18:50 10 L 06/01/21 16:00 97.5 F L 113 H 16 104/54 99 06/01/21 12:00 111 H 16 84/51 95 Intake and Output 06/01/21 06/02/21 06/02/21 22:59 06:59 14:59 Other: Voiding Method Diaper Diaper Incontinent Incontinent General: The patient is reclining in the bed. She is obese. She is in mild to moderate distress. She is moaning, nearly continuously. HEENT: Head is atraumatic, normocephalic. Fundus not visualized. There is no scleral icterus. Mucous membranes are slightly dry. Neck: Supple, carotid bruits are unable to be auscultated, secondary to the patient moaning. Heart: Regular rate and rhythm Extremities: Without edema Neurological examination Mental status: The patient intermittently has her eyes open. There is no obvious blink to visual threat. The patient follows no commands. She is only moaning. She does not speak any words. Cranial nerves: Pupils are equal at 4 mm, sluggishly reactive on the right and more brisk on the left. The patient does not blink to visual threat. There is a right facial droop. Motor: There is some spontaneous movement of the left upper extremity. There is no movement of the right upper or lower extremity. The patient does withdraw the left lower extremity, slightly from plantar stimulation. Sensation: There is localization of noxious stimulation to the left upper and lower extremities. There is no movement or evidence of sensation on the right. Deep tendon reflexes: 3+/4+ in the right upper extremity. 2-3+/4+ at the right knee. Left upper and lower extremity reflexes are 1-2+/4+. Coordination: Unable to be assessed Gait: Unable to be assessed Results - Laboratory Findings CBC and BMP: 06/01/21 20:32 06/01/21 20:32 Abnormal Lab Findings: Abnormal Labs 05/25/21 05/25/21 05/25/21 15:52 15:52 16:18 WBC 14.2 H RBC Hgb Hct MCV 102.9 H MCHC 30.6 L RDW 17.3 H Plt Count Neutrophils # 11.9 H Neutrophils # (Manual) Metamyelocytes # (Man) Myelocytes # (Manual) ABG pH ABG pCO2 ABG pO2 ABG HCO3 ABG Total CO2 ABG O2 Saturation Sodium Potassium Chloride Carbon Dioxide BUN Creatinine Glucose POC Glucose (mg/dL) Plasma Lactic Acid David 2.7 H* Calcium AST ALT Alkaline Phosphatase Troponin I 0.161 H* C-Reactive Protein Total Protein Albumin Random Vancomycin 05/25/21 05/25/21 05/25/21 16:18 18:35 20:26 WBC RBC Hgb Hct MCV MCHC RDW Plt Count Neutrophils # Neutrophils # (Manual) Metamyelocytes # (Man) Myelocytes # (Manual) ABG pH ABG pCO2 ABG pO2 ABG HCO3 ABG Total CO2 ABG O2 Saturation Sodium 131 L Potassium 2.1 L* Chloride 97 L Carbon Dioxide BUN 41 H Creatinine 4.75 H Glucose 123 H POC Glucose (mg/dL) Plasma Lactic Acid David Calcium AST 84 H ALT 62 H Alkaline Phosphatase 180 H Troponin I 0.163 H* 0.160 H* C-Reactive Protein Total Protein 4.7 L Albumin 1.9 L Random Vancomycin 05/25/21 05/26/21 05/26/21 20:26 10:26 10:33 WBC 10.8 H RBC 3.62 L Hgb 11.3 L Hct MCV 102.3 H MCHC 30.6 L RDW 17.3 H Plt Count Neutrophils # 9.1 H Neutrophils # (Manual) Metamyelocytes # (Man) Myelocytes # (Manual) ABG pH ABG pCO2 ABG pO2 ABG HCO3 ABG Total CO2 ABG O2 Saturation Sodium 131 L 133 L Potassium 3.1 L Chloride Carbon Dioxide 21 L BUN 43 H 44 H Creatinine 4.78 H 5.15 H Glucose 104 H 111 H POC Glucose (mg/dL) Plasma Lactic Acid David Calcium AST ALT Alkaline Phosphatase Troponin I C-Reactive Protein Total Protein Albumin Random Vancomycin 05/27/21 05/29/21 05/29/21 09:05 08:26 20:57 WBC RBC Hgb Hct MCV MCHC RDW Plt Count Neutrophils # Neutrophils # (Manual) Metamyelocytes # (Man) Myelocytes # (Manual) ABG pH ABG pCO2 ABG pO2 ABG HCO3 ABG Total CO2 ABG O2 Saturation Sodium 132 L 132 L Potassium 3.4 L 3.0 L Chloride Carbon Dioxide 21 L BUN 39 H 33 H Creatinine 4.73 H 4.34 H Glucose 111 H 107 H POC Glucose (mg/dL) 127 H Plasma Lactic Acid David Calcium AST ALT Alkaline Phosphatase Troponin I C-Reactive Protein 7.4 H Total Protein Albumin Random Vancomycin 05/30/21 05/30/21 05/30/21 06:05 10:47 10:47 WBC 12.8 H RBC 3.05 L Hgb 9.8 L D Hct 30.8 L MCV 101.1 H MCHC RDW 16.9 H Plt Count Neutrophils # Neutrophils # (Manual) 9.70 H Metamyelocytes # (Man) 0.13 H Myelocytes # (Manual) 0.26 H ABG pH ABG pCO2 ABG pO2 ABG HCO3 ABG Total CO2 ABG O2 Saturation Sodium 133 L Potassium Chloride 108 H Carbon Dioxide 19 L BUN 33 H Creatinine 4.53 H Glucose 105 H POC Glucose (mg/dL) 132 H Plasma Lactic Acid David Calcium 8.2 L AST ALT Alkaline Phosphatase Troponin I C-Reactive Protein Total Protein Albumin Random Vancomycin 05/31/21 06/01/21 06/01/21 09:45 08:21 08:21 WBC RBC Hgb Hct MCV MCHC RDW Plt Count Neutrophils # Neutrophils # (Manual) Metamyelocytes # (Man) Myelocytes # (Manual) ABG pH ABG pCO2 ABG pO2 ABG HCO3 ABG Total CO2 ABG O2 Saturation Sodium Potassium Chloride Carbon Dioxide BUN Creatinine 4.86 H 2.62 H Glucose POC Glucose (mg/dL) Plasma Lactic Acid David Calcium AST ALT Alkaline Phosphatase Troponin I C-Reactive Protein Total Protein Albumin Random Vancomycin 48.5 H* 06/01/21 06/01/21 06/01/21 19:01 20:24 20:32 WBC 11.6 H RBC 2.96 L Hgb 9.4 L Hct 30.2 L MCV 102.0 H MCHC RDW 16.8 H Plt Count 94 L Neutrophils # Neutrophils # (Manual) 9.20 H Metamyelocytes # (Man) 0.12 H Myelocytes # (Manual) ABG pH 7.53 H ABG pCO2 32 L ABG pO2 368 H ABG HCO3 26 H ABG Total CO2 27 H ABG O2 Saturation 100.0 H Sodium Potassium Chloride Carbon Dioxide BUN Creatinine Glucose POC Glucose (mg/dL) 100 H Plasma Lactic Acid David Calcium AST ALT Alkaline Phosphatase Troponin I C-Reactive Protein Total Protein Albumin Random Vancomycin 06/01/21 06/02/21 06/02/21 20:32 00:25 08:05 WBC RBC Hgb Hct MCV MCHC RDW Plt Count Neutrophils # Neutrophils # (Manual) Metamyelocytes # (Man) Myelocytes # (Manual) ABG pH 7.49 H ABG pCO2 ABG pO2 168 H ABG HCO3 27 H ABG Total CO2 28 H ABG O2 Saturation 99.4 H Sodium Potassium 5.2 H Chloride 111 H Carbon Dioxide BUN 21 H Creatinine 3.11 H Glucose POC Glucose (mg/dL) Plasma Lactic Acid David Calcium 8.3 L AST 43 H ALT Alkaline Phosphatase 142 H Troponin I C-Reactive Protein Total Protein 4.4 L Albumin 1.7 L Random Vancomycin 43.3 H* Assessment and Plan Assessment: 1. Acute mental status changes with right facial droop, right hemiplegia and aphasia-possible left middle cerebral artery infarct 2. Multiple medical problems including-renal failure, peritonitis CT scan of the brain reveals evidence of a left temporoparietal acute infarct. Report was called from the radiologist and images were personally reviewed by myself Plan: 1. Repeat, urgent CT scan of brain has been ordered 2. After CT scan report was made available, stroke order set was placed: 2-D echocardiogram, lipid panel, hemoglobin A1c, PT, OT and speech therapy consultations 3. Aspirin 81 mg daily-now 4. Plavix 75 mg daily-now Thank you for allowing me to participate in the care of this patient. Dr. Scott will assume neurologic coverage of this patient as a June 03, 2021 Time with Patient: Greater than 30 (spent 40 minutes with patient via telemedicine)
--- NOTE | 2021-06-02 13:10 | PN ---
PROGRESS NOTE Patient is seen for followup for end-stage renal disease. Her PD catheter was removed due to persistent underlying peritonitis and hypotension. Patient had hemodialysis treatment on Thursday. She has subclavian stenosis and therefore a femoral catheter was placed. Patient also has torticollis and therefore a catheter could not be placed on her left side. On examination today, blood pressure 117/73, heart rate 69 per minute. She is afebrile. EXAMINATION OF THE HEART: S1 and S2. EXAMINATION OF LUNGS: Bilateral breath sounds are heard. Abdomen is soft, non-tender. Examination of lower extremities shows trace edema bilaterally. Labs show sodium 138, potassium 5.2, BUN 21, creatinine 3.1, hemoglobin 9.4. ASSESSMENT: 1. End-stage renal disease, currently switched to hemodialysis due to PD peritonitis. We will maintain on a Thursday, Thursday, Thursday schedule. Patient has a right femoral catheter, as she was noted to subclavian stenosis on the right side, and patient has torticollis; therefore a left-sided IJ catheter could not be placed. She will be maintained on a Thursday, Thursday, Thursday schedule. 2. PD peritonitis with fluid cultures growing Enterococcus faecalis on two separate cultures. Patient had ongoing hypotension and therefore the catheter was removed. 3. Hypotension associated with underlying infection, currently maintained on midodrine. Blood pressures are now slightly better. 4. Chronic kidney disease mineral bone disorder, maintained on Renvela. PLAN: Hemodialysis in a.m. Continue with the midodrine. UF of about 1 L as tolerated. MMODL / IJN: [id number] /
[2021-06-02] MEDS: CLOPIDOGREL 75 MG TAB PO SCH (13:39)
[2021-06-02] MEDS: MIDODRINE 5 MG TAB PO SCH ×2 (13:39→17:55)
--- NOTE | 2021-06-02 14:36 | P.PN ---
Subjective Progress Note Date: 06/02/21 HISTORY OF PRESENT ILLNESS 56-year-old female with developmental delay who had history of end-stage renal disease on peritoneal dialysis, history of hypertension, hyperlipidemia, hypothyroidism who had an infected left knee late last year had surgery and ended up going to rehab for long time was home for the last few weeks when patient developed to have significant change mental status with decreased oral intake with worsening symptoms overall for the last few days have been having fatigue tiredness not been eating or drinking no now moving. Also her dialysis has been getting quite bit worse patient apparently will be switch to hemodialysis was told need workup for fistula graft the left arm for possible hemodialysis. Family ended up bringing her to demurs department at [facility] where was seen and evaluated surprisingly found to have mildly elevated troponin with severe electrolyte imbalance with potassium of 2.1 only. Chest x-ray did not show any infection just atelectasis, COVID-19 was negative at the time. Patient was started on gentle hydration will be admitted to the hospital be seen nephrology and vascular, CK with troponin 3 will be done and patient will be seen cardiology further intervention after doing an echocardiogram will depend on the result. 05/26: Patient states that she is feeling better. No complaints or concerns. Plan is for patient to change from peritoneal dialysis to hemodialysis. Consult for nephrology and vascular surgery in place. Patient remains afebrile, heart rate 108, respirations 18, blood pressure 105/71 pulse ox 90% on room air. WC 10.8, hemoglobin 11.3, sodium 133, potassium 3.1, BUN 44, creatinine 5.15. 05/27, patient is currently nothing by mouth, for planned Port-A-Cath placement today, for the transfusion hemodialysis treatment, from a peritoneal dialysis regimen. Patient has dry mouth, no nausea no vomiting, no chest pain no shortness of breath, vitals are stable, 118/64, no fever, T-max of 97.0, heart rate is in the 70s. Pulse ox room air 98% 05/28: Patient is seen today on the cardiac stepdown unit. She is receiving intraperitoneal antibiotics. Patient is receiving regular CAPD managed by nephrology. Nephrology is planning on 2-3 weeks of antibiotic therapy. Tonsils been added for Dr. Doran 8. 05/29: Throughout the night, blood pressure was low down to 68/50, CAPD was held, patient received 500 mL bolus last evening a repeat this morning and we are ordering another 250 ML's now. Blood pressure has recovered somewhat at 90/60. Cortisol level was ordered and patient will be started on hydrocortisone 100 mg IV every 8 hours. Ensure clear and beneprotein added. Sodium was 132, potassium 3.0 will be replaced, BUN 33 creatinine 4.34, blood sugar 107. The plan to transfer patient to ICU but at this point, hold any transfer and continue current treatment. Dr. Randhawa has seen and reviewed patient, blood cultures and inflammatory markers pending. 05/30: Patient is scheduled to have CAPD catheter removed with Dr. Somers and have dialysis by Dr. Navarro. Blood pressures are improved. Hydrocortisone discontinued as cortisol level was at 30. Blood pressure 103/72, afebrile, heart rate in the 60s, pulse ox 100% on room air. 05/31: Patient had CAPD catheter removed and she is scheduled for dialysis catheter placement today with Dr. Navarro. Patient will be continued on hemodialysis with plan for subacute rehab for discharge once chair time has been obtained for dialysis. Patient is afebrile, heart rate 77, blood pressure 95/55, pulse ox 98% on room air. 06/01: Right common femoral approach for hemodialysis access, was placed on 05/[address] Navarro, antibiotic needs to be finalized by Dr. Randhawa, for peritonitis caused by the peritoneal catheter which has been discontinued also on 05/31 2021. Anticipate discharge to subacute rehab on Thursday, brother is at bedside today, updated regarding treatment plan, no fever no chills, patient has been drowsy today, most likely secondary to pain meds, or lack of sleep. Feedings are minimal today, and is being fed by the brother without any difficulties. No fevers, no aspiration 06/02: patient is seen with the family members today, patient's moaning groaning, starting at9:30 at night, and was noted to have changes in mentationpatient cannot verbally verbalize what is going on last night, do not improve with small dose of Dilaudid 0.5 mg to control the femoral pain, CAT scan of the brain was ordered, 9:33 PM, age indeterminate right frontal lobe CVA with no comparison previous CT, there is a focus of patricio white matter differentiation loss within the right frontal lobe, no interparenchymal hemorrhage or mass effect,, concentration for MRI if clinically warranted, 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 Carrion neurology, for whichanother stat CT was placed,aunt 10 AM, there is an area of diminished attenuation with sulcal effacement involving the left frontal parietal lobe suggestive of acute ischemia, diminished attenuation in the high left parietal region, also suspicious for recent ischemia,code stroke was calledpatient is placed on aspirin 81 mg daily, and Plavix 75 mg daily. However patient cannot take any oral medications at this time, we started aspirin suppository, 1025 mg, until oral route is established. Discussed this with the mother, there was no plans for a PEG feeding at one time she had similar problems for which she has not eaten for one month, and they have used and a NG-tube or dophoff feeding in past it looks like the femoral cath is only a temporary way of providing dialysis, and possibly would return to peritoneal dialysis once cleared of infection.when seen today, patient cannot follow commands, can move ice, small facial droop right side,and not follow verbal commands, painstimuli was given to elicit a motor response, withdraws on the left, no withdrawal of arms on the right side. There is no localization of painful stimuli, and left lower extremity, no movement or evidence of sensation on the right side.blood cultures, no growth 96 hours,IV access to right femoral catheter, blood pressure 97/62 to 117/73. REVIEW OF SYSTEMS Constitutional: No fever, no chills, no night sweats. significant weight change or generalized weakness fatigue lethargy daytime sleepiness EENT: No headache. No blurred vision or double vision, no loss of vision. No loss of Hearing, no ringing in the ears, no dizziness. No nasal drainage or congestion. No epistaxis. No sore throat. Lungs: No shortness of breath, cough, no sputum production. No wheezing. Cardiovascular: No chest pain, no lower extremity edema. No palpitations. No paroxysmal nocturnal dyspnea. No orthopnea. No lightheadedness or dizziness. No syncopal episodes. Abdominal: No abdominal pain. No nausea, vomiting. No diarrhea. No constipation. No bloody or tarry stools.. No loss of appetite. Genitourinary: decrease in urine output. Musculoskeletal: No myalgias. No muscle weakness, no gait dysfunction, no frequent falls. No back pain. No neck pain. Integumentary: No wounds, no lesions. No rash or pruritus. No unusual bruising. No change in hair or nails. Neurologic: developmental delay with generalized weakness fatigue and lethargy. Psychiatric: No depression. No anxiety. No mood swings. Endocrine: No abnormal blood sugars. No weight change. PHYSICAL EXAMINATION Gen: This is well-developed does not look in any respiratory distress. HEENT: Head is atraumatic, normocephalic. Pupils equal, round. Sclerae is anicteric. NECK: Supple. No JVD. No lymphadenopathy. No thyromegaly. LUNGS: decreased breath some bilaterally with rhonchi no crackles or wheezes. HEART: Regular rate and rhythm. No murmur. ABDOMEN: Soft. Bowel sounds are present. CAPD catheter. EXTREMITIES: No pedal edema. No calf tenderness. scar on the left knee from previous surgery. NEUROLOGICAL: Patient is awake, alert and oriented to person and place with slight confusion. ASSESSMENT AND PLAN 1.metabolic encephalopathy secondary to PD catheter-associated peritonitis. Patient is to continue CAPD antibiotics, consult with Dr. Edis lawson. CAPD catheter removed 05/[address] Navarro will place dialysis cathete 2021 2. 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 Neurology is following, aspirin and Plavix as recommended, however patient cannot get any oral medications at this time, aspirin 300 mg suppository will be provided until oral intake is managed well. Patient might need dobhoff feedings, rather than NG tube, no plans for PEG feedings at this time, if they plan on going back to peritoneal dialysis 2 elevated troponin and possible non-ST [place]: CK with troponin 3 will be done, consult cardiology echocardiogram will be done based on the results decide on further management including if needed to do any intervention. 3 end-stage renal disease on CAPD currently patient apparently been tried to switch to hemodialysis consult nephrology will continue CAPD for now until her dialysis line is on board when patient can be switched to hemodialysis. 4 hypertension: Patient blood pressure has been slightly bit low she is using midodrine 10 mg 3 times a day. 5 hypothyroidism: Continue patient on levothyroxine 112 g daily. 6 hyperlipidemia: Has been on atorvastatin 10 mg a day. 7 chronic gout: Patient has been on Zyloprim 100 mg daily. 8 electrolyte imbalance with severe hypokalemia: Patient has been on Klor-Con 20 me daily we'll titrate dose up to 20 mg 3 times a day for now recheck potassium level replacement will be done. 9 chronic anemia: Has been on iron and Epogen. 10 infected left knee post surgery patient left knee is non-ambulatory currently she need help will consider physical therapy the patient therapy. 11 severe dehydration: Continue gentle hydration for now watch for any fluid overload. 12 GI prophylaxis: Patient be on Pepcid 20 mg daily. 13 DVT prophylaxis: Knee-high ANDRE hose and Venodyne boots if needed subcu hepari n will be done. 14. COVID-19 testing.was negative. 15. Hypokalemia. Potassium chloride 10 mEq IV piggyback times 4, repeat BMP in the a.m. 16. Hypovolemic shock it is post multiple fluid boluses, continue to hold CAPD as advised by nephrology, Solu-Cortef discontinued, Ensure and beneprotein added. No need to transfer to ICU at this point. Discharge plan:subacute rehab at [facility] PT, OT Current Medications Acetaminophen (Acetaminophen Tab 325 Mg Tab) 650 mg PO Q6HR PRN PRN Reason: Fever and/ or Mild Pain Allopurinol (Allopurinol 100 Mg Tab) 100 mg PO DAILY [facility] Last Admin: 06/02/21 09:18 Dose: Not Given Documented by: Aspirin (Aspirin 81 Mg) 81 mg PO DAILY [facility] Last Admin: 06/02/21 13:38 Dose: Not Given Documented by: Aspirin (Aspirin 300 Mg Supp) 300 mg RECTAL DAILY [facility] Atorvastatin Calcium (Atorvastatin 10 Mg Tab) 10 mg PO HS [facility] Last Admin: 06/01/21 21:41 Dose: Not Given Documented by: Clopidogrel Bisulfate (Clopidogrel 75 Mg Tab) 75 mg PO DAILY [facility] Last Admin: 06/02/21 13:39 Dose: Not Given Documented by: Famotidine (Famotidine 20 Mg Tab) 20 mg PO DAILY [facility] Last Admin: 06/02/21 09:18 Dose: Not Given Documented by: Hydromorphone HCl (Hydromorphone 0.5 Mg/0.5 Ml Syringe) 0.5 mg IVP Q4HR PRN PRN Reason: Pain Last Admin: 06/01/21 18:41 Dose: 0.5 mg Documented by: Dextrose/Sodium Chloride (Dextrose 5%-Ns Iv Soln) 1,000 mls @ 50 mls/hr IV .Q20H [facility] Levothyroxine Sodium (Levothyroxine 112 Mcg Tab) 112 mcg PO [facility] Last Admin: 06/02/21 09:17 Dose: Not Given Documented by: Magnesium Oxide (Magnesium Oxide 400 Mg Tab) 400 mg PO DAILY [facility] Last Admin: 06/02/21 09:18 Dose: Not Given Documented by: Midodrine (Midodrine 5 Mg Tab) 10 mg PO AC-TID [facility] Last Admin: 06/02/21 13:39 Dose: Not Given Documented by: Miscellaneous Information (Vancomycin Iv Per Pharmacy 1 Each [facility]) 1 each MISCELLANE DIRECTED PRN; Protocol PRN Reason: Per Protocol Multivit/Ca Carb/B Cmplx/FA/Prenat (Folic Acid-Vit B Complex-Vit C 1 Cap) 1 each PO DAILY [facility] Last Admin: 06/02/21 09:18 Dose: Not Given Documented by: Naloxone HCl (Naloxone 0.4 Mg/Ml 1 Ml Vial) 0.2 mg IV Q2M PRN PRN Reason: Opioid Reversal Last Admin: 06/01/21 18:54 Dose: 0.2 mg Documented by: Ondansetron HCl (Ondansetron Odt 8 Mg Tab.Rapdis) 8 mg PO Q8H PRN PRN Reason: Nausea Pantoprazole Sodium (Pantoprazole 40 Mg Tablet) 40 mg PO AC-BRKFST [facility] Last Admin: 06/02/21 09:17 Dose: Not Given Documented by: Sertraline HCl (Sertraline 25 Mg Tab) 25 mg PO HS [facility] Last Admin: 06/01/21 21:41 Dose: Not Given Documented by: Sevelamer Carbonate (Sevelamer 800 Mg Tab) 800 mg PO AC-TID [facility] Last Admin: 06/02/21 13:39 Dose: Not Given Documented by: Laboratory Results - Last 24 Hours 06/01/21 06/01/21 06/01/21 18:02 19:01 20:24 WBC RBC Hgb Hct MCV MCH MCHC RDW Plt Count MPV Neutrophils % (Manual) Band Neuts % (Manual) Lymphocytes % (Manual) Monocytes % (Manual) Metamyelocytes % Neutrophils # (Manual) Lymphocytes # (Manual) Monocytes # (Manual) Metamyelocytes # (Man) Nucleated RBCs Manual Slide Review Hypochromasia Anisocytosis Anisocytosis (manual) Macrocytosis Sample Site r rad ABG pH 7.53 H ABG pCO2 32 L ABG pO2 368 H ABG HCO3 26 H ABG Total CO2 27 H ABG O2 Saturation 100.0 H ABG Base Excess 3.6 Chacho Test Yes FiO2 100 Sodium Potassium Chloride Carbon Dioxide Anion Gap BUN Creatinine Est GFR (CKD-EPI)AfAm Est GFR (CKD-EPI)NonAf Glucose POC Glucose (mg/dL) 84 100 H POC Glu Inspector Raw Quartz ID Elda Ramirez, Paulina Plasma Lactic Acid David Calcium Total Bilirubin AST ALT Alkaline Phosphatase Total Protein Albumin Procalcitonin Random Vancomycin 06/01/21 06/01/21 06/01/21 20:32 20:32 22:28 WBC 11.6 H RBC 2.96 L Hgb 9.4 L Hct 30.2 L MCV 102.0 H MCH 31.7 MCHC 31.0 RDW 16.8 H Plt Count 94 L MPV 10.8 Neutrophils % (Manual) 60 Band Neuts % (Manual) 20 Lymphocytes % (Manual) 15 Monocytes % (Manual) 5 Metamyelocytes % 1 Neutrophils # (Manual) 9.20 H Lymphocytes # (Manual) 1.74 Monocytes # (Manual) 0.58 Metamyelocytes # (Man) 0.12 H Nucleated RBCs 0 Manual Slide Review Performed Hypochromasia Moderate Anisocytosis Slight Anisocytosis (manual) Present Macrocytosis Slight Sample Site ABG pH ABG pCO2 ABG pO2 ABG HCO3 ABG Total CO2 ABG O2 Saturation ABG Base Excess Chacho Test FiO2 Sodium 138 Potassium 5.2 H Chloride 111 H Carbon Dioxide 23 Anion Gap 4 BUN 21 H Creatinine 3.11 H Est GFR (CKD-EPI)AfAm 18 Est GFR (CKD-EPI)NonAf 16 Glucose 93 POC Glucose (mg/dL) POC Glu Inspector Raw Quartz ID Plasma Lactic Acid David 1.3 Calcium 8.3 L Total Bilirubin 0.6 AST 43 H ALT 27 Alkaline Phosphatase 142 H Total Protein 4.4 L Albumin 1.7 L Procalcitonin Random Vancomycin 06/02/21 06/02/21 06/02/21 00:25 08:05 08:05 WBC RBC Hgb Hct MCV MCH MCHC RDW Plt Count MPV Neutrophils % (Manual) Band Neuts % (Manual) Lymphocytes % (Manual) Monocytes % (Manual) Metamyelocytes % Neutrophils # (Manual) Lymphocytes # (Manual) Monocytes # (Manual) Metamyelocytes # (Man) Nucleated RBCs Manual Slide Review Hypochromasia Anisocytosis Anisocytosis (manual) Macrocytosis Sample Site lrad ABG pH 7.49 H ABG pCO2 35 ABG pO2 168 H ABG HCO3 27 H ABG Total CO2 28 H ABG O2 Saturation 99.4 H ABG Base Excess 3.3 Chacho Test Yes FiO2 28 Sodium Potassium Chloride Carbon Dioxide Anion Gap BUN Creatinine Est GFR (CKD-EPI)AfAm Est GFR (CKD-EPI)NonAf Glucose POC Glucose (mg/dL) POC Glu Inspector Raw Quartz ID Plasma Lactic Acid David Calcium Total Bilirubin AST ALT Alkaline Phosphatase Total Protein Albumin Procalcitonin 0.85 H Random Vancomycin 43.3 H* Vital Signs Temp 98.2 F 06/02/21 12:00 Pulse 69 06/02/21 12:00 Resp 18 06/02/21 12:00 BP 117/73 06/02/21 12:00 Pulse Ox 94 L 06/02/21 12:00 Intake & Output 06/01/21 06/02/21 06/02/21 18:59 06:59 18:59 Intake Total 50 Output Total 0 0 Balance 50 0 Intake: Oral 50 Output: Stool 0 0 Other: Voiding Method Diaper Diaper Diaper Incontinent Incontinent Incontinent Objective - Vital Signs Vital signs: Vital Signs Temp 98.2 F 06/02/21 12:00 Pulse 69 06/02/21 12:00 Resp 18 06/02/21 12:00 BP 117/73 06/02/21 12:00 Pulse Ox 94 L 06/02/21 12:00 Intake & Output 06/01/21 06/02/21 06/02/21 18:59 06:59 18:59 Intake Total 50 Output Total 0 0 Balance 50 0 Intake: Oral 50 Output: Stool 0 0 Other: Voiding Method Diaper Diaper Diaper Incontinent Incontinent Incontinent - Labs CBC & Chem 7: 06/01/21 20:32 06/01/21 20:32 Labs: Abnormal Lab Results - Last 24 Hours (Table) 06/01/21 06/01/21 06/01/21 Range/Units 19:01 20:24 20:32 WBC 11.6 H (3.8-10.6) k/uL RBC 2.96 L (3.80-5.40) m/uL Hgb 9.4 L (11.4-16.0) gm/dL Hct 30.2 L (34.0-46.0) % MCV 102.0 H (80.0-100.0) fL RDW 16.8 H (11.5-15.5) % Plt Count 94 L (150-450) k/uL Neutrophils # (Manual) 9.20 H (1.3-7.7) k/uL Metamyelocytes # (Man) 0.12 H (0) k/uL ABG pH 7.53 H (7.35-7.45) ABG pCO2 32 L (35-45) mmHg ABG pO2 368 H (83-108) mmHg ABG HCO3 26 H (21-25) mmol/L ABG Total CO2 27 H (19-24) mmol/L ABG O2 Saturation 100.0 H (94-97) % Potassium (3.5-5.1) mmol/L Chloride (98-107) mmol/L BUN (7-17) mg/dL Creatinine (0.52-1.04) mg/dL POC Glucose (mg/dL) 100 H (75-99) mg/dL Calcium (8.4-10.2) mg/dL AST (14-36) U/L Alkaline Phosphatase (38-126) U/L Total Protein (6.3-8.2) g/dL Albumin (3.5-5.0) g/dL Procalcitonin (0.02-0.09) ng/mL Random Vancomycin ug/mL 06/01/21 06/02/21 06/02/21 Range/Units 20:32 00:25 08:05 WBC (3.8-10.6) k/uL RBC (3.80-5.40) m/uL Hgb (11.4-16.0) gm/dL Hct (34.0-46.0) % MCV (80.0-100.0) fL RDW (11.5-15.5) % Plt Count (150-450) k/uL Neutrophils # (Manual) (1.3-7.7) k/uL Metamyelocytes # (Man) (0) k/uL ABG pH 7.49 H (7.35-7.45) ABG pCO2 (35-45) mmHg ABG pO2 168 H (83-108) mmHg ABG HCO3 27 H (21-25) mmol/L ABG Total CO2 28 H (19-24) mmol/L ABG O2 Saturation 99.4 H (94-97) % Potassium 5.2 H (3.5-5.1) mmol/L Chloride 111 H (98-107) mmol/L BUN 21 H (7-17) mg/dL Creatinine 3.11 H (0.52-1.04) mg/dL POC Glucose (mg/dL) (75-99) mg/dL Calcium 8.3 L (8.4-10.2) mg/dL AST 43 H (14-36) U/L Alkaline Phosphatase 142 H (38-126) U/L Total Protein 4.4 L (6.3-8.2) g/dL Albumin 1.7 L (3.5-5.0) g/dL Procalcitonin (0.02-0.09) ng/mL Random Vancomycin 43.3 H* ug/mL 06/02/21 Range/Units 08:05 WBC (3.8-10.6) k/uL RBC (3.80-5.40) m/uL Hgb (11.4-16.0) gm/dL Hct (34.0-46.0) % MCV (80.0-100.0) fL RDW (11.5-15.5) % Plt Count (150-450) k/uL Neutrophils # (Manual) (1.3-7.7) k/uL Metamyelocytes # (Man) (0) k/uL ABG pH (7.35-7.45) ABG pCO2 (35-45) mmHg ABG pO2 (83-108) mmHg ABG HCO3 (21-25) mmol/L ABG Total CO2 (19-24) mmol/L ABG O2 Saturation (94-97) % Potassium (3.5-5.1) mmol/L Chloride (98-107) mmol/L BUN (7-17) mg/dL Creatinine (0.52-1.04) mg/dL POC Glucose (mg/dL) (75-99) mg/dL Calcium (8.4-10.2) mg/dL AST (14-36) U/L Alkaline Phosphatase (38-126) U/L Total Protein (6.3-8.2) g/dL Albumin (3.5-5.0) g/dL Procalcitonin 0.85 H (0.02-0.09) ng/mL Random Vancomycin ug/mL Microbiology - Last 24 Hours (Table) 05/28/21 12:57 Blood Culture - Preliminary Blood No Growth after 96 hours 05/28/21 12:12 Gram Stain - Final Peritoneal Fluid Body Fluid Culture - Final Enterococcus faecalis Staphylococcus epidermidis
[2021-06-02] MEDS: DEXTROSE 5%-0.9% NACL 1,000 ML IV SCH (17:55)
--- NOTE | 2021-06-02 20:22 | PN ---
PROGRESS NOTE DATE OF SERVICE: 06/02/2021 REASON FOR FOLLOWUP VISIT: PD catheter associated peritonitis. INTERVAL HISTORY: The patient remains to be afebrile. The patient is breathing comfortably. No chest pain, shortness of breath or cough. Abdominal pain is currently controlled. No further vomiting or diarrhea. PHYSICAL EXAMINATION: Blood pressure 96/51, pulse of 105, temperature 97.2. She is 100% on room air. General description is a middle-aged female lying in bed in no distress. Respiratory system: Unlabored breathing, decreased intensity of breath sounds, no wheeze. Heart S1, S2.Regular rate and rhythm. Abdomen soft, no tenderness. No guarding or rigidity. LABS: Reviewed DIAGNOSTIC IMPRESSION AND PLAN: Patient with PD catheter associated peritonitis, culture positive for Enterococcus faecalis and staph epi. The patient to continue vancomycin pharmacy to dose duration of antibiotic will be at least 2 weeks And continue supportive care MMODL / IJN: [id number] / MTDD
[2021-06-02] MEDS: ATORVASTATIN 10 MG TAB PO SCH (20:28)
[2021-06-02] MEDS: SERTRALINE 25 MG TAB PO SCH (20:28)
[2021-06-02] MEDS: ASPIRIN 300 MG SUPP RECTAL SCH (20:30)
[2021-06-02] MEDS ORDERED: ACETAMINOPHEN SUPPOSITORY 650 MG SUPP RECTAL PRN (21:22)
[2021-06-02] MEDS ORDERED: METOPROLOL TARTRATE 5 MG/5 ML VIAL IVP SCH (22:00)
--- NOTE | 2021-06-02 22:00 | US ---
EXAMINATION TYPE: US carotid duplex BILAT DATE OF EXAM: 06/02/2021 COMPARISON: NONE CLINICAL HISTORY: CVA. Exam done portable EXAM MEASUREMENTS: RIGHT: Peak Systolic Velocity (PSV) cm/sec ----- Right CCA: 91.6 ----- Right ICA: 128.0 ----- Right ECA: 86.6 ICA/CCA ratio: 1.4 RIGHT: End Diastole cm/sec ----- Right CCA: 14.3 ----- Right ICA: 30.8 ----- Right ECA: 7.4 LEFT: Peak Systolic Velocity (PSV) cm/sec ----- Left CCA: 92.6 ----- Left ICA: 75.9 ----- Left ECA: 89.5 ICA/CCA ratio: 0.8 LEFT: End Diastole cm/sec ----- Left CCA: 23.8 ----- Left ICA: 18.8 ----- Left ECA: 14.8 VERTEBRALS (direction of flow): Right Vertebral: Antegrade Left Vertebral: Antegrade Rhythm: Normal Patient moaning during exam No significant stenosis IMPRESSION: 1. No significant stenosis in the bilateral ICAs. 2. Minimally elevated right ICA peak systolic velocity. Criteria for Assigning % of Stenosis / Diameter reduction (Estimation based on the indirect measurements of the internal carotid artery velocities (ICA PSV). 1. Normal (no stenosis)=ICA PSV < 125 cm/s: ratio < 2.0: ICA EDV<40 cm/s. 2. Less than 50% stenosis=ICA PSV < 125 cm/s: ratio < 2.0: ICA EDV<40 cm/s. 3. 50 to 69% stenosis=ICA PSV of 125 to 230 cm/s: ration 2.0 ? 4.0: ICA EDV 40-100 cm/s. 4. Greater than 70% stenosis to near occlusion= ICA PSV > 230 cm/s: ratio > 4.0: ICA EDV > 100 cm/s. 5. Near occlusion= ICA PSV velocities may be low or undetectable: variable ratio and ICA EDV. 6. Total occlusion=unable to detect flow.
[2021-06-02] MEDS: PIPERACILLIN-TAZOBACTAM 3.375 GM in SODIUM CHLORIDE 0.9% 100 ML IVPB SCH (22:07)
[2021-06-03] MEDS ORDERED: SODIUM CHLORIDE 0.9% 250 ML IV ONE (01:23)
[2021-06-03] MEDS: SEVELAMER 800 MG TAB PO SCH ×3 (05:14→16:10)
[2021-06-03] MEDS: MIDODRINE 5 MG TAB PO SCH ×3 (05:14→16:10)
[2021-06-03] MEDS: LEVOTHYROXINE 112 MCG TAB PO SCH (05:14)
[2021-06-03] MEDS: PANTOPRAZOLE 40 MG TABLET PO SCH (05:14)
[2021-06-03] MEDS: PIPERACILLIN-TAZOBACTAM 3.375 GM in SODIUM CHLORIDE 0.9% 100 ML IVPB SCH ×2 (06:00→14:43)
[2021-06-03] MEDS ORDERED: SODIUM CHLORIDE 0.9% 1,000 ML IV ONE (08:04)
--- NOTE | 2021-06-03 08:59 | XR ---
EXAMINATION TYPE: XR chest 1V portable DATE OF EXAM: 06/03/2021 COMPARISON: Chest x-ray 06/01/2021 HISTORY: Fever and cough TECHNIQUE: Single frontal view of the chest is obtained. FINDINGS: There is no focal air space opacity, pleural effusion, or pneumothorax seen. Lung volumes are low. There may be a spinal curvature. There are overlying artifacts. The cardiac silhouette size is within normal limits. The osseous structures are intact. IMPRESSION: No acute process. Expiratory rotated exam, follow-up as indicated
[2021-06-03] MEDS: FOLIC ACID-VIT B COMPLEX-VIT C 1 CAP PO SCH (09:15)
[2021-06-03] MEDS: CLOPIDOGREL 75 MG TAB PO SCH (09:15)
[2021-06-03] MEDS: MAGNESIUM OXIDE 400 MG TAB PO SCH (09:15)
[2021-06-03] MEDS: allopurinoL 100 MG TAB PO SCH (09:15)
[2021-06-03] MEDS: FAMOTIDINE 20 MG TAB PO SCH (09:15)
[2021-06-03] MEDS: ASPIRIN 300 MG SUPP RECTAL SCH (09:41)
[2021-06-03] MEDS: DEXTROSE 5%-0.9% NACL 1,000 ML IV SCH ×2 (09:42→18:38)
[2021-06-03 10:16] LABS: Glucose,Whole Blood 88 mg/dL (75-99)
--- NOTE | 2021-06-03 11:04 | P.CRDCN ---
History of Present Illness History of present illness: HISTORY OF PRESENTING ILLNESS This is a pleasant 56-year-old female past medical history significant for end- stage renal disease on dialysis, hypertension, dyslipidemia, hypothyroidism. Not known that patient any history of coronary artery disease or heart failure. No known health equipment servicer the patient sees. We have been asked to see in consultation for tachycardia. Patient initially presented to the hospital on 05/25/2021 due to altered mental status and decreased oral intake with worsening symptoms. Patient's symptoms were initially due to dehydration and change in her dialysis schedule. There was also concern for Peritonitis. Patient had a Port-A-Cath placement on 05/27/21 and transition to hemodialysis. Her peritoneal dialysis catheter was removed on 05/30/2021. Yesterday 06/02/21 patient had a change in mental status, patient was moaning/groaning, stop the patient was in pain and was given a small dose of Dilaudid 0.5 mg. Patient's blood pressure decreased and she was sinus tachycardic HR 100-130. CT brain was obtained which revealed acute ischemia left frontal parietal lobe with no midline shift. Patient seen at bedside, she continues to moan/groan, awake, but not alert or oriented. BP 70s/40s, sinus tachycardia HR 120s. Oxygen saturation is 98% on 3 L nasal cannula. Plan for patient to be transferred to the ICU this morning. DIAGNOSTICS EKG reveals sinus rhythm, heart rate 100, incomplete right bundle branch block, T wave inversion in lead III, aVF, prior EKG in with similar findings. Telemetry tracings indicate sinus tachycardia, heart rate [id number], arrhythmia noted Chest xray no acute process. Laboratory reviewed, Covid 19 negative, Labs from 06/01/21- WBC 11.6, hemoglobin 9.4, platelets 94, sodium 130, potassium 5.2, BUN 21, serum creatinine 3.1 Current home medications include atorvastatin 10 mg nightly, Pepcid, Ecotrin, Synthroid, magnesium oxide, Midrin, Zofran, potassium chloride, Zoloft, Renvela, allopurinol REVIEW OF SYSTEMS At the time of my exam: Patient unable to get an accurate review of systems mental status. PHYSICAL EXAMINATION CONSTITUTIONAL: hypotensive, not alert. HEENT: Head is normocephalic. No JVD. CHEST EXAMINATION: Lungs are diminished bilaterally to auscultation. HEART EXAMINATION: Regular rate and rhythm. S1, S2 heard. Systolic ejection murmur noted ABDOMEN: Soft, Positive bowel sounds. EXTREMITIES: 2+ peripheral pulses, generalized edema, appears to be third spacing NEUROLOGIC EXAMINATION: Patient is awake, alert and oriented x0 ASSESSMENT Sinus tachycardia, likely related to hypovolemia, dehydration, infection and acute CVA Hypovolemia/Dehydration Acute right frontal parietal CVA Metabolic encephalopathy Peritonitis End stage renal disease on dialysis Hypotension History of hypertension Hyperlipidemia Hypothyroidism PLAN We will obtain 2-D echocardiogram to evaluate patient's left ventricular systolic function and valvular function. Patient in sinus tachycardia, no evidence of atrial fibrillation. Continue cardiac telemetry. Continue management per primary, nephrology, infectious disease, neurology. Further recommendations based on clinical course Nurse Practitioner note has been reviewed, I agree with a documented findings and plan of care. Patient was seen and examined. Past Medical History Past Medical History: Hyperlipidemia, Hypertension, Renal Disease, Thyroid Disorder Additional Past Medical History / Comment(s): developmentally delayed, ESRD with nightly peritoneal dialysis, anemia, mineral bone disease, reverse deep palate/ some speech issues, swelling legs and ankles, hx of fx rt leg, hypothyroid, degenerative joint disease. History of Any Multi-Drug Resistant Organisms: None Reported Past Surgical History: Ear Surgery, Joint Replacement Additional Past Surgical History / Comment(s): 09/25/20 total L knee arthroplasty, 09/30/20 permacath R chest, 01/13/20 peritoneal dialysis catheter, septoplasty, bilateral myringotomy/tubes, oral surgery, Past Anesthesia/Blood Transfusion Reactions: Family History of Problems w/ Anesthesia Additional Past Anesthesia/Blood Transfusion Reaction / Comment(s): mom-ponv Past Psychological History: No Psychological Hx Reported Smoking Status: Never smoker Past Alcohol Use History: None Reported Past Drug Use History: None Reported - Past Family History Father Family Medical History: Cancer Additional Family Medical History / Comment(s): Father of esophageal cancer. Mother Family Medical History: Cancer, Hyperlipidemia, Hypertension, Osteoarthritis (OA) Additional Family Medical History / Comment(s): Tip of R index finger cancer/amputated. Medications and Allergies Home Medications Medication Instructions Recorded Confirmed Type Levothyroxine Sodium [Synthroid] 112 mcg PO AC-BRKFST 01/10/20 05/25/21 History allopurinoL [Zyloprim] 100 mg PO DAILY 10/16/20 05/25/21 History Atorvastatin [Lipitor] 10 mg PO HS 10/31/20 05/25/21 History Sevelamer [Renvela] 800 mg PO AC-TID 01/11/21 05/25/21 History Epoetin Felipe [Epogen] 20,000 unit SQ Q7D 05/25/21 05/25/21 History Famotidine [Pepcid] 20 mg PO DAILY 05/25/21 05/25/21 History Gentamicin Sulfate [Gentamicin 1 applic TOPICAL DAILY PRN 05/25/21 05/25/21 History Sulfate 0.1%] Magnesium Oxide [Evans] 500 mg PO DAILY 05/25/21 05/25/21 History Midodrine HCl [ProAmatine] 10 mg PO AC-TID 05/25/21 05/25/21 History Ondansetron Odt [Zofran Odt] 8 mg PO Q8H PRN 05/25/21 05/25/21 History Potassium Chloride ER [K-Dur 20] 20 meq PO DAILY 05/25/21 05/25/21 History Danna-Tino 1 tab PO DAILY 05/25/21 05/25/21 History Sertraline [Zoloft] 25 mg PO HS 05/25/21 05/25/21 History Allergies Allergy/AdvReac Type Severity Reaction Status Date / Time lisinopril Allergy Unknown Verified 05/25/21 18:30 Physical Exam Vitals: Vital Signs Temp Pulse Resp BP BP Pulse Ox 06/03/21 08:43 79/42 06/03/21 08:30 123 H 85/51 06/03/21 07:51 98.3 F 125 H 18 77/49 98 06/03/21 07:50 18 06/03/21 06:40 74/52 06/03/21 05:07 79/53 06/03/21 03:15 98.6 F 120 H 24 74/52 97 06/03/21 01:05 99 F 124 H 76/50 79/56 06/02/21 23:00 99.2 F 109 H 20 90/54 99 06/02/21 21:58 92/53 06/02/21 20:05 100.9 F H 129 H 22 108/73 100 06/02/21 16:00 98.1 F 113 H 18 102/74 100 06/02/21 14:00 69 18 06/02/21 12:00 98.2 F 69 18 117/73 94 L Intake and Output 06/02/21 06/03/21 06/03/21 22:59 06:59 14:59 Intake Total 0 Balance 0 Intake: Oral 0 Other: Voiding Method Diaper Diaper Diaper Incontinent Incontinent Incontinent Results 06/01/21 20:32 06/01/21 20:32 Current Medications Generic Name Dose Route Start Last Admin Trade Name Freq PRN Reason Stop Dose Admin Acetaminophen 650 mg 06/01/21 20:04 Acetaminophen Tab 325 Mg Tab PO Q6HR PRN Fever and/ or Mild Pain Acetaminophen 500 mg 06/02/21 21:22 06/02/21 21:57 Acetaminophen Suppository 650 Mg Supp RECTAL 500 mg Q6HR PRN Administration Fever and/ or Pain Allopurinol 100 mg 05/26/21 09:00 06/03/21 09:15 Allopurinol 100 Mg Tab PO Not Given DAILY [facility] Aspirin 300 mg 06/02/21 13:15 06/03/21 09:41 Aspirin 300 Mg Supp RECTAL 300 mg DAILY [facility] Administration Atorvastatin Calcium 10 mg 05/25/21 21:00 06/02/21 20:28 Atorvastatin 10 Mg Tab PO Not Given HS [facility] Clopidogrel Bisulfate 75 mg 06/02/21 12:15 06/03/21 09:15 Clopidogrel 75 Mg Tab PO Not Given DAILY [facility] Famotidine 20 mg 05/26/21 09:00 06/03/21 09:15 Famotidine 20 Mg Tab PO Not Given DAILY [facility] Hydromorphone HCl 0.5 mg 06/01/21 18:29 06/01/21 18:41 Hydromorphone 0.5 Mg/0.5 Ml Syringe IVP 0.5 mg Q4HR PRN Administration Pain Dextrose/Sodium Chloride 1,000 mls @ 100 mls/hr 06/02/21 13:15 06/03/21 09:42 Dextrose 5%-Ns Iv Soln IV 100 mls/hr .Q10H KAYLIN Administration Piperacillin Sod/Tazobactam 100 mls @ 25 mls/hr 06/02/21 22:00 06/03/21 06:00 Sod 3.375 gm/ Sodium Chloride IVPB 25 mls/hr Q8H [facility] Administration Norepinephrine Bitartrate 4 mg 254 mls @ 14.669 mls/hr 06/03/21 10:30 / Sodium Chloride IV .[id number] [facility]LIN Protocol 0.05 MCG/KG/MIN Levothyroxine Sodium 112 mcg 05/26/21 07:30 06/03/21 05:14 Levothyroxine 112 Mcg Tab PO Not Given AC-BRKFST [facility] Magnesium Oxide 400 mg 05/26/21 09:00 06/03/21 09:15 Magnesium Oxide 400 Mg Tab PO Not Given DAILY [facility] Midodrine 10 mg 05/26/21 07:30 06/03/21 05:14 Midodrine 5 Mg Tab PO Not Given AC-TID [facility] Miscellaneous Information 1 each 05/30/21 13:04 Vancomycin Iv Per Pharmacy 1 Each Misc MISCELLANE DIRECTED PRN Per Protocol Protocol Multivit/Ca Carb/B Cmplx/FA/Prenat 1 each 05/26/21 09:00 06/03/21 09:15 Folic Acid-Vit B Complex-Vit C 1 Cap PO Not Given DAILY [facility] Naloxone HCl 0.2 mg 05/25/21 17:20 06/01/21 18:54 Naloxone 0.4 Mg/Ml 1 Ml Vial IV 0.2 mg Q2M PRN Administration Opioid Reversal Ondansetron HCl 8 mg 05/25/21 20:18 Ondansetron Odt 8 Mg Tab.Rapdis PO Q8H PRN Nausea Pantoprazole Sodium 40 mg 05/27/21 17:45 06/03/21 05:14 Pantoprazole 40 Mg Tablet PO Not Given AC-BRKFST [facility]LIN Sertraline HCl 25 mg 05/25/21 21:00 06/02/21 20:28 Sertraline 25 Mg Tab PO Not Given HS [facility]LIN Sevelamer Carbonate 800 mg 05/26/21 07:30 06/03/21 05:14 Sevelamer 800 Mg Tab PO Not Given AC-TID [facility]LIN Intake and Output 06/02/21 06/03/21 06/03/21 22:59 06:59 14:59 Intake Total 0 Balance 0 Intake: Oral 0 Other: Voiding Method Diaper Diaper Diaper Incontinent Incontinent Incontinent 06/01/21 20:32 06/01/21 20:32
[2021-06-03] MEDS ORDERED: SODIUM CHLORIDE 0.9% 2,000 ML IV ONE (11:13)
[2021-06-03] MEDS: HYDROCORTISONE SUCCINATE 100 MG/2 ML VIAL IV SCH ×3 (11:35→23:32)
--- NOTE | 2021-06-03 11:48 | P.PN ---
Subjective Patient is seen in follow-up for end-stage renal disease. She is maintained hemodialysis. PD catheter was removed due to resistant peritonitis. Transfer to the ICU today due to hypotension. She has received 1.5 L of normal saline bolus and Levophed will be started. Vital signs are stable. Blood pressure low. HEENT: Head exam is unremarkable. LUNGS: Breath sounds decreased. HEART: Rate and Rhythm are regular. ABDOMEN: Soft, no distention. EXTREMITITES: No edema. Objective - Vital Signs Vital signs: Vital Signs Temp 98.3 F 06/03/21 07:51 Pulse 123 H 06/03/21 08:30 Resp 18 06/03/21 07:51 BP 79/42 06/03/21 08:43 Pulse Ox 98 06/03/21 07:51 Intake & Output 06/02/21 06/03/21 06/03/21 18:59 06:59 18:59 Intake Total 0 Output Total 0 Balance 0 0 Intake: Oral 0 Output: Stool 0 Other: Voiding Method Diaper Diaper Diaper Incontinent Incontinent Incontinent - Labs CBC & Chem 7: 06/01/21 20:32 06/01/21 20:32 Labs: Abnormal Lab Results - Last 24 Hours (Table) 06/02/21 Range/Units 08:05 Procalcitonin 0.85 H (0.02-0.09) ng/mL Microbiology - Last 24 Hours (Table) 05/28/21 12:57 Blood Culture - Preliminary Blood No Growth after 120 hours Assessment and Plan Plan: Assessment: 1. End-stage renal disease maintained on hemodialysis. 2. Hypokalemia from poor intake and PD losses. Replaced. Improved. 3. Hypotension due to sepsis. On midodrine. Levophed started today. 4. Chronic kidney disease mineral bone disease maintained on Renvela. Phosphorus level 5.1. 5. PD associated peritonitis with fluid culture positive for group D enterococcus. PD catheter removed 05/30/21. On IV antibiotics. Infectious disease following. Plan: Hemodialysis today. Receiving normal saline bolus. Levophed being started. IV steroids added as well. Vancomycin level high at 43.3 yesterday. Dose to be adjusted for renal function. Cortisol level pending. Repeat phosphorus level. Follow-up echocardiogram.
--- NOTE | 2021-06-03 12:08 | XR ---
EXAMINATION TYPE: XR chest 1V portable DATE OF EXAM: 06/03/2021 COMPARISON: 06/03/2021 INDICATION: Line placement TECHNIQUE: Single frontal view of the chest is obtained. FINDINGS: The heart size is normal. The pulmonary vasculature is normal. The lungs are clear. No pneumothorax is identified Very subtle catheter appears to be along the right diaphragm. EKG leads overlie the abdomen IMPRESSION: 1. Subtle right-sided catheter. 2. No acute pulmonary process.
--- NOTE | 2021-06-03 12:26 | P.PN ---
<Candice Polo - Last Filed: 06/03/21 11:59> Subjective Progress Note Date: 06/03/21 CHIEF COMPLAINT: Peritoneal dialysis catheter associated infection HISTORY OF PRESENT ILLNESS: 56-year-old female who presented to the emergency room with changes in her mental status and weakness. She was found to be septic for which they believe the source with her peritoneal dialysis catheter. She had that removed on 05/30/2020. She had been doing well. She had right femoral tunneled catheter placed on 05/31/[address] Navarro. The patient was post get dialysis today however she's been hypotensive and is going to be transferred to the ICU. Apparently the patient also had a suspected acute stroke, and is currently being worked up by neurology. She did have thank you to temp of 100.9 yesterday evening but has been afebrile since. PHYSICAL EXAM: VITAL SIGNS: Reviewed. GENERAL: Well-developed appears in no acute distress. HEENT: No sclera icterus. Extraocular movements grossly intact. Moist buccal mucosa. Head is atraumatic, normocephalic. ABDOMEN: Soft. Nondistended. Nontender. Incision clean dry and intact. NEUROLOGIC: Lethargic with mental status changes. ASSESSMENT: 1. Infected peritoneal dialysis catheter status post removal 2. End-stage renal disease requiring dialysis PLAN: -Continue symptomatic and supportive care -Continue ICU management -Continue antibiotics per recommendations from infectious disease The impression and plan of care has been dictated as directed. Dr. Somers I performed a history and examination of this patient, discussed the same with the dictator. I agree with the dictator's note ,documented as a scribe. Any additional findings or plans will be noted. Objective - Vital Signs Vital signs: Vital Signs Temp 98.3 F 06/03/21 07:51 Pulse 123 H 06/03/21 08:30 Resp 18 06/03/21 07:51 BP 79/42 06/03/21 08:43 Pulse Ox 98 06/03/21 07:51 Intake & Output 06/02/21 06/03/21 06/03/21 18:59 06:59 18:59 Output Total 0 Balance 0 Output: Stool 0 Other: Voiding Method Diaper Diaper Incontinent Incontinent - Labs CBC & Chem 7: 06/01/21 20:32 06/01/21 20:32 Labs: Abnormal Lab Results - Last 24 Hours (Table) 06/02/21 Range/Units 08:05 Procalcitonin 0.85 H (0.02-0.09) ng/mL Microbiology - Last 24 Hours (Table) 05/28/21 12:57 Blood Culture - Preliminary Blood No Growth after 120 hours <Toni Somers - Last Filed: 06/03/21 17:23> Subjective I have personally seen and examined the patient, reviewed the [employer] /PAs history, exam and MDM and agree with the assessment and plan as written. Based on total visit time, I have performed more than 50% of the visit. As above. Patient in the ICU. Remains on Levophed. Abdominal incision clean and dry, no erythema, no definite abdominal tenderness although exam somewhat limited by mental status. Continue antibiotics per infectious disease. May require bedside swallow evaluation at some point. We'll follow. Objective - Vital Signs Vital signs: Vital Signs Temp 97.8 F 06/03/21 14:51 Pulse 102 H 06/03/21 16:00 Resp 0 L 06/03/21 16:00 BP 79/42 06/03/21 08:43 Pulse Ox 87 L 06/03/21 15:30 Intake & Output 06/02/21 06/03/21 06/03/21 18:59 06:59 18:59 Intake Total 2678.467 Output Total 0 0 Balance 0 2678.467 Weight 77 kg Intake: Intake, IV Titration 2678.467 Amount Dextrose 5%-0.9% NaCl 1, 400 000 ml @ 100 mls/hr IV . Q10H [facility] Rx#:[id number] Norepinephrine 4 mg In 178.467 Sodium Chloride 0.9% 250 ml @ 0.05 MCG/KG/MIN 14. 669 mls/hr IV .[id number] [facility] Rx#:[id number] Piperacillin-Tazobactam 3 100 .375 gm In Sodium Chloride 0.9% 100 ml @ 25 mls/hr IVPB Q8H [facility] Rx#: [id number] Sodium Chloride 0.9% 2, 2000 000 ml @ 999 mls/hr IV . Q2H1M [facility] Rx#:[id number] Oral 0 Output: Urine 0 Stool 0 Other: Voiding Method Diaper Diaper Diaper Incontinent Incontinent Incontinent ABP, PAP, CO, CI - Last Documented Arterial Blood Pressure 84/45 - Labs CBC & Chem 7: 06/01/21 20:32 06/03/21 11:30 Labs: Abnormal Lab Results - Last 24 Hours (Table) 06/03/21 06/03/21 Range/Units 11:30 11:30 Potassium 3.2 L (3.5-5.1) mmol/L Chloride 116 H (98-107) mmol/L Carbon Dioxide 19 L (22-30) mmol/L BUN 22 H (7-17) mg/dL Creatinine 4.23 H (0.52-1.04) mg/dL Glucose 123 H (74-99) mg/dL Calcium 7.7 L (8.4-10.2) mg/dL HDL Cholesterol 36.20 L (40.00-60.00) mg/dL Microbiology - Last 24 Hours (Table) 05/28/21 12:57 Blood Culture - Final Blood No Growth after 144 hours Assessment and Plan (1) ESRD on peritoneal dialysis Current Visit: No Status: Chronic Code(s): N18.6 - END STAGE RENAL DISEASE; Z99.2 - DEPENDENCE ON RENAL DIALYSIS SNOMED Code(s): 022936986
--- NOTE | 2021-06-03 12:51 | ECHOF ---
Referral Reason:LV function, elevated troponin MEASUREMENTS -------- HEIGHT: 152.4 cm WEIGHT: 76.7 kg BP: 111/56 RVIDd: 1.9 cm (< 3.3) IVSd: 1.1 cm (0.6 - 1.1) LVIDd: 2.7 cm (3.9 - 5.3) LVPWd: 1.2 cm (0.6 - 1.1) IVSs: 1.4 cm LVIDs: 1.9 cm LVPWs: 1.5 cm LA Diam: 2.4 cm (2.7 - 3.8) Ao Diam: 2.7 cm (2.0 - 3.7) AV Cusp: 1.8 cm (1.5 - 2.6) MV EXCURSION: 11.844 mm (> 18.000) MV EF SLOPE: 39 mm/s (70 - 150) EPSS: 0.5 cm MV E Dima: 0.96 m/s MV DecT: 222 ms MV A Dima: 1.37 m/s MV E/A Ratio: 0.70 FINDINGS -------- Sinus rhythm. This was a technically adequate study. The left ventricular size is normal. There is borderline concentric left ventricular hypertrophy. Overall left ventricular systolic function is normal with, an EF between 55 - 60 %. The right ventricle is normal in size. The left atrial size is normal. The right atrium is normal in size. Interatrial and interventricular septum intact. There is mild aortic valve sclerosis. Mild mitral annular calcification present. The tricuspid valve appears structurally normal. There is no pulmonic regurgitation present. The aortic root size is normal. Normal inferior vena cava with normal inspiratory collapse consistent with estimated right atrial pre ssure of 5 mmHg. Echo free space indicative of a pericardial fat pad. There is a trivial pericardial effusion presen t. CONCLUSIONS -------- 1. The left ventricular size is normal. 2. There is borderline concentric left ventricular hypertrophy. 3. Overall left ventricular systolic function is normal with, an EF between 55 - 60 %. 4. The right ventricle is normal in size. 5. There is mild aortic valve sclerosis. 6. Mild mitral annular calcification present. 7. Echo free space indicative of a pericardial fat pad. 8. There is a trivial pericardial effusion present. CUTTING ROOM SUPERVISOR: Mena Whaley RDCS
[2021-06-03] MEDS: NOREPINEPHRINE 4 MG in SODIUM CHLORIDE 0.9% 250 ML IV SCH ×2 (13:20→16:37)
--- NOTE | 2021-06-03 13:45 | P.PN ---
Subjective Progress Note Date: 06/03/21 HISTORY OF PRESENT ILLNESS 56-year-old female with developmental delay who had history of end-stage renal disease on peritoneal dialysis, history of hypertension, hyperlipidemia, h ypothyroidism who had an infected left knee late last year had surgery and ended up going to rehab for long time was home for the last few weeks when patient developed to have significant change mental status with decreased oral intake with worsening symptoms overall for the last few days have been having fatigue tiredness not been eating or drinking no now moving. Also her dialysis has been getting quite bit worse patient apparently will be switch to hemodialysis was told need workup for fistula graft the left arm for possible hemodialysis. Family ended up bringing her to demurs department at [facility] where was seen and evaluated surprisingly found to have mildly elevated troponin with severe electrolyte imbalance with potassium of 2.1 only. Chest x-ray did not show any infection just atelectasis, COVID-19 was negative at the time. Patient was started on gentle hydration will be admitted to the hospital be seen nephrology and vascular, CK with troponin 3 will be done and patient will be seen cardiology further intervention after doing an echocardiogram will depend on the result. 05/26: Patient states that she is feeling better. No complaints or concerns. Plan is for patient to change from peritoneal dialysis to hemodialysis. Consult for nephrology and vascular surgery in place. Patient remains afebrile, heart rate 108, respirations 18, blood pressure 105/71 pulse ox 90% on room air. WC 10.8, hemoglobin 11.3, sodium 133, potassium 3.1, BUN 44, creatinine 5.15. 05/27, patient is currently nothing by mouth, for planned Port-A-Cath placement today, for the transfusion hemodialysis treatment, from a peritoneal dialysis regimen. Patient has dry mouth, no nausea no vomiting, no chest pain no shortness of breath, vitals are stable, 118/64, no fever, T-max of 97.0, heart rate is in the 70s. Pulse ox room air 98% 05/28: Patient is seen today on the cardiac stepdown unit. She is receiving intraperitoneal antibiotics. Patient is receiving regular CAPD managed by nephrology. Nephrology is planning on 2-3 weeks of antibiotic therapy. Tonsils been added for Dr. Doran 8. 05/29: Throughout the night, blood pressure was low down to 68/50, CAPD was held, patient received 500 mL bolus last evening a repeat this morning and we are ordering another 250 ML's now. Blood pressure has recovered somewhat at 90/60. Cortisol level was ordered and patient will be started on hydrocortisone 100 mg IV every 8 hours. Ensure clear and beneprotein added. Sodium was 132, potassium 3.0 will be replaced, BUN 33 creatinine 4.34, blood sugar 107. The plan to transfer patient to ICU but at this point, hold any transfer and continue current treatment. Dr. Randhawa has seen and reviewed patient, blood cultures and inflammatory markers pending. 05/30: Patient is scheduled to have CAPD catheter removed with Dr. Somers and have dialysis by Dr. Navarro. Blood pressures are improved. Hydrocortisone discontinued as cortisol level was at 30. Blood pressure 103/72, afebrile, heart rate in the 60s, pulse ox 100% on room air. 05/31: Patient had CAPD catheter removed and she is scheduled for dialysis catheter placement today with Dr. Navarro. Patient will be continued on hemodialysis with plan for subacute rehab for discharge once chair time has been obtained for dialysis. Patient is afebrile, heart rate 77, blood pressure 95/55, pulse ox 98% on room air. 06/01: Right common femoral approach for hemodialysis access, was placed on 05/[address] Navarro, antibiotic needs to be finalized by Dr. Randhawa, for peritonitis caused by the peritoneal catheter which has been discontinued also on 05/31 2021. Anticipate discharge to subacute rehab on Thursday, brother is at bedside today, updated regarding treatment plan, no fever no chills, patient has been drowsy today, most likely secondary to pain meds, or lack of sleep. Feedings are minimal today, and is being fed by the brother without any difficulties. No fevers, no aspiration 06/02: patient is seen with the family members today, patient's moaning groaning, starting at9:30 at night, and was noted to have changes in mentationpatient cannot verbally verbalize what is going on last night, do not improve with small dose of Dilaudid 0.5 mg to control the femoral pain, CAT scan of the brain was ordered, 9:33 PM, age indeterminate right frontal lobe CVA with no comparison previous CT, there is a focus of patricio white matter differentiation loss within the right frontal lobe, no interparenchymal hemorrhage or mass effect,, concentration for MRI if clinically warranted, 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 Carrion neurology, for whichanother stat CT was placed,aunt 10 AM, there is an area of diminished attenuation with sulcal effacement involving the left frontal parietal lobe suggestive of acute ischemia, diminished attenuation in the high left parietal region, also suspicious for recent ischemia,code stroke was calledpatient is placed on aspirin 81 mg daily, and Plavix 75 mg daily. However patient cannot take any oral medications at this time, we started aspirin suppository, 1025 mg, until oral route is established. Discussed this with the mother, there was no plans for a PEG feeding at one time she had similar problems for which she has not eaten for one month, and they have used and a NG-tube or dophoff feeding in past it looks like the femoral cath is only a temporary way of providing dialysis, and possibly would return to peritoneal dialysis once cleared of infection.when seen today, patient cannot follow commands, can move ice, small facial droop right side,and not follow verbal commands, painstimuli was given to elicit a motor response, withdraws on the left, no withdrawal of arms on the right side. There is no localization of painful stimuli, and left lower extremity, no movement or evidence of sensation on the right side.blood cultures, no growth 96 hours,IV access to right femoral catheter, blood pressure 97/62 to 117/73. 06/03: Patient was transferred into the intensive care unit due to hypotension and tachycardia status post 1.5 L fluid bolus with plan to start levophed. The line has been placed by pulmonary medicine. She has been seen by cardiology and echocardiogram was ordered. No sign of atrial fibrillation. Nephrology is planning for hemodialysis today. Ankle myosin level XLIII.3. Cortisol level XXXVI and patient has been started on IV hydrocortisone. She remains unresponsive since Thursday evening and followed by nephrology left cerebral artery infarct. Echocardiogram shows EF 55-60% with borderline concentric left ventricular hypertrophy, mild aortic valve sclerosis, mild mitral calcification. Carotid ultrasound reveals no significant stenosis in the bilateral ICAs. Chest x-ray reveals right-sided catheter. No acute pulmonary process. REVIEW OF SYSTEMS Able to obtain due to mental status changes. PHYSICAL EXAMINATION Gen: This is a 56-year-old obese female resting in the ICU bed, well- developed does not look in any respiratory distress. HEENT: Head is atraumatic, normocephalic. Pupils equal, round. Sclerae is anicteric. NECK: Supple. No JVD. No lymphadenopathy. No thyromegaly. LUNGS: decreased breath some bilaterally with rhonchi no crackles or wheezes. HEART: Regular rate and rhythm. No murmur. ABDOMEN: Soft. Bowel sounds are present. CAPD catheter was removed. EXTREMITIES: No pedal edema. No calf tenderness. scar on the left knee from previous surgery. NEUROLOGICAL: Patient is sleeping, does not arouse to verbal stimuli. ASSESSMENT AND PLAN 1. Metabolic encephalopathy secondary to PD catheter-associated peritonitis. Patient continued on Zosyn and vancomycin, pharmacy dosing, consult with Dr. Edis lawson. CAPD catheter removed 05/31 [address] Navarro will place dialysis cathete 2021 2. 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 Neurology is following, aspirin and Plavix as recommended, however patient cannot get any oral medications at this time, aspirin 300 mg suppository will be provided until oral intake is managed well. Patient might need NG tube, no plans for PEG feedings at this time, if they plan on going back to peritoneal dialysis Elevated troponin and possible non-ST CT: CK with troponin 3 will be done, consult cardiology echocardiogram will be done based on the results decide on further management including if needed to do any intervention. End-stage renal disease on CAPD currently patient apparently been tried to switch to hemodialysis consult nephrology will continue CAPD for now until her dialysis line is on board when patient can be switched to hemodialysis. Hypertension: Patient blood pressure has been slightly bit low she is using midodrine 10 mg 3 times a day. Hypothyroidism: Continue patient on levothyroxine 112 g daily. Hyperlipidemia: Has been on atorvastatin 10 mg a day. Chronic gout: Patient has been on Zyloprim 100 mg daily. Electrolyte imbalance with severe hypokalemia: Patient has been on Klor-Con 20 me daily we'll titrate dose up to 20 mg 3 times a day for now recheck potassium level replacement will be done. Chronic anemia: Has been on iron and Epogen. Infected left knee post surgery patient left knee is non-ambulatory currently she need help will consider physical therapy the patient therapy. Severe dehydration: Continue gentle hydration for now watch for any fluid overload. Hypokalemia. Potassium chloride 10 mEq IV piggyback times 4, repeat BMP in the a.m. Hypovolemic shock it is post multiple fluid boluses, transfer to ICU at this point. GI prophylaxis: Patient be on Pepcid 20 mg daily. DVT prophylaxis: Knee-high ANDRE hose and Venodyne boots if needed subcu heparin will be done. COVID-19 testing.was negative. Diagnosis is guarded Discharge plan:subacute rehab at [facility] PT, OT Impression and plan of care have been directed as dictated by the signing physician. Kianna Don nurse practitioner acting as scribe for signing physician. Objective - Vital Signs Vital signs: Vital Signs Temp 98.3 F 06/03/21 07:51 Pulse 123 H 06/03/21 08:30 Resp 18 06/03/21 07:51 BP 79/42 06/03/21 08:43 Pulse Ox 98 06/03/21 07:51 Intake & Output 06/02/21 06/03/21 06/03/21 18:59 06:59 18:59 Intake Total 0 Output Total 0 Balance 0 0 Intake: Oral 0 Output: Stool 0 Other: Voiding Method Diaper Diaper Diaper Incontinent Incontinent Incontinent - Labs CBC & Chem 7: 06/01/21 20:32 06/01/21 20:32 Labs: Abnormal Lab Results - Last 24 Hours (Table) 06/02/21 Range/Units 08:05 Procalcitonin 0.85 H (0.02-0.09) ng/mL Microbiology - Last 24 Hours (Table) 05/28/21 12:57 Blood Culture - Preliminary Blood No Growth after 120 hours
--- NOTE | 2021-06-03 14:01 | P.GSCN ---
History of Present Illness Consult date: 06/03/21 Reason for Consult: IV line placement Requesting physician: Sana Otero History of present illness: This is a 56-year-old female who came in on 05/25/2021 for altered mental status changes. Patient is a past medical history of developmental delay, hyperlipidemia, hypertension, end-stage renal disease who had been on peritoneal dialysis, thyroid disorder, and chronic anemia. Patient was noted to have a peritoneal fluid evidence of leukocytosis. Infectious disease was consulted and patient was started on antibiotics. Patient had a peritoneal dialysis that they thought was causing infection and it was removed on 05/30/21. The femoral tunneled catheter placed on 05/31/[address] Navarro. Patient has been a hard IV stick currently has a peripheral line in her right breast. Vascular surgery was consulted for IV access. She has seen and examined this morning. She has very lethargic, nonresponsive to follow commands or answer questions. Hemodialysis nurse was at the bedside however patient was found to be hypotensive and is being transferred to the ICU. She has not undergone dialysis since the placement of the HD tunneled cath. Review of Systems ROS unobtainable: due to mental status Past Medical History Past Medical History: Hyperlipidemia, Hypertension, Renal Disease, Thyroid Disorder Additional Past Medical History / Comment(s): developmentally delayed, ESRD with nightly peritoneal dialysis, anemia, mineral bone disease, reverse deep palate/ some speech issues, swelling legs and ankles, hx of fx rt leg, hypothyroid, degenerative joint disease. History of Any Multi-Drug Resistant Organisms: None Reported Past Surgical History: Ear Surgery, Joint Replacement Additional Past Surgical History / Comment(s): 09/25/20 total L knee arthroplasty, 09/30/20 permacath R chest, 01/13/20 peritoneal dialysis catheter, septoplasty, bilateral myringotomy/tubes, oral surgery, Past Anesthesia/Blood Transfusion Reactions: Family History of Problems w/ Anesthesia Additional Past Anesthesia/Blood Transfusion Reaction / Comm: mom-ponv Past Psychological History: No Psychological Hx Reported Smoking Status: Never smoker Past Alcohol Use History: None Reported Past Drug Use History: None Reported - Past Family History Father Family Medical History: Cancer Additional Family Medical History / Comment(s): Father of esophageal cancer. Mother Family Medical History: Cancer, Hyperlipidemia, Hypertension, Osteoarthritis (OA) Additional Family Medical History / Comment(s): Tip of R index finger cancer/amputated. Medications and Allergies Home Medications Medication Instructions Recorded Confirmed Type Levothyroxine Sodium [Synthroid] 112 mcg PO AC-BRKFST 01/10/20 05/25/21 History allopurinoL [Zyloprim] 100 mg PO DAILY 10/16/20 05/25/21 History Atorvastatin [Lipitor] 10 mg PO HS 10/31/20 05/25/21 History Sevelamer [Renvela] 800 mg PO AC-TID 01/11/21 05/25/21 History Epoetin Felipe [Epogen] 20,000 unit SQ Q7D 05/25/21 05/25/21 History Famotidine [Pepcid] 20 mg PO DAILY 05/25/21 05/25/21 History Gentamicin Sulfate [Gentamicin 1 applic TOPICAL DAILY PRN 05/25/21 05/25/21 History Sulfate 0.1%] Magnesium Oxide [Evans] 500 mg PO DAILY 05/25/21 05/25/21 History Midodrine HCl [ProAmatine] 10 mg PO AC-TID 05/25/21 05/25/21 History Ondansetron Odt [Zofran Odt] 8 mg PO Q8H PRN 05/25/21 05/25/21 History Potassium Chloride ER [K-Dur 20] 20 meq PO DAILY 05/25/21 05/25/21 History Danna-Tino 1 tab PO DAILY 05/25/21 05/25/21 History Sertraline [Zoloft] 25 mg PO HS 05/25/21 05/25/21 History Allergies Allergy/AdvReac Type Severity Reaction Status Date / Time lisinopril Allergy Unknown Verified 05/25/21 18:30 Surgical - Exam Vital Signs Temp Pulse Resp BP Pulse Ox 98.6 F 97 18 89/61 96 05/25/21 14:59 05/25/21 14:59 05/25/21 14:59 05/25/21 14:59 05/25/21 14:59 General appearance: The patient is an lethargic, and appear in any acute distress. HET: Head is normocephalic and atraumatic. Pupils are equal and reactive. Oropharynx is clear without lesions. Neck: Supple without lymphadenopathy. Trachea midline. Heart: S1 S2. Regular rate and rhythm. Lungs: No crackles or wheezes are heard. Abdomen: Soft, nontender, nondistended. Extremities: Normal skin color and turgor. Bilateral lower extremity edema. Neurological: Lethargic, nonverbal and not answering questions or following commands. Results - Labs 06/01/21 20:32 06/01/21 20:32 Abnormal Lab Results - Last 24 Hours (Table) 06/02/21 Range/Units 08:05 Procalcitonin 0.85 H (0.02-0.09) ng/mL Microbiology - Last 24 Hours (Table) 05/28/21 12:57 Blood Culture - Preliminary Blood No Growth after 120 hours Assessment and Plan Assessment: 1. Metabolic encephalopathy secondary to peritoneal catheter associated infection is post removal of peritoneal dialysis catheter 2. End-stage renal disease on hemodialysis 3. Acute right frontoparietal CVA with right facial droop, right hemiplegia with aphasia Plan: 1. Recommend midline or PICC line placement for now as patient not optimal candidate for surgery at this time 2. New current antibiotics per recommendations from infectious disease 3. Continue current medical management per primary medicine team 4. Further recommendations forthcoming per vascular surgeon
[2021-06-03 14:22] LABS: LDL Cholesterol,Calculated 41.4 mg/dL (0.0-131.0)
--- NOTE | 2021-06-03 14:45 | P.PN ---
Subjective Progress Note Date: 06/03/21 Principal diagnosis: Acute peritonitis, sepsis, and possible septic shock. 06/01/2023 patient's condition is stable. The patient is hemodynamically improved and the patient is able to support her own blood pressure. The patient is currently running away cervical os 12.8 with a hemoglobin of 9.8. The BUN is at 33 with a creatinine of 4.5. Sodium is at 133. The peritoneal fluid culture clipper and turner to be positive for enterococcus group D and earlier culture was positive for Enterococcus faecalis. The patient remains on vancomycin being administered IV. The patient's would have the CAPD catheter removed by general surgery and have a dialysis catheter inserted. Blood pressure is stable for now. The patient's had hydrocortisone level that was elevated and the hydrocortisone IV can be discontinued. No fever. No other significant events otherwise. The patient is calm and comfortable and there are no signs of any respiratory distress and the patient is currently on room air oxygen. Patient was evaluated today on 06/03/21, patient has been followed by Dr. Nielsen on 06/01. Apparently the patient was seen initially on consultation for hypotension, sepsis and septic shock. Patient presented initially with peritonitis. Patient used to be on peritoneal dialysis, and I believe she developed peritoneal dialysis catheter sepsis and peritonitis. A shunt has been treated and evaluated by multiple consultants. Patient was also seen by surgery and she underwent peritoneal dialysis catheter removal. And she was treated all along by infectious disease with multiple antibiotics for her abdominal sepsis/peritonitis. Dr. Nielsen signed off the case, however he was be notified today that the patient needed to be transferred to the ICU and she was developing hypotension again. I evaluated the patient shortly after she was transferred to the ICU, recommended fluid boluses, and I recommended norepinephrine to be started on this patient if she remains hypotensive. Patient is being followed by many consultants including nephrology for her chronic kidney disease. She had a left groin hemodialysis catheter, and I believe she is scheduled to undergo dialysis today. May require norepinephrine to perform hemodialysis. I was able to establish a left groin triple lumen catheter placement, without any complications. I have recommended more fluid boluses and recommended norepinephrine to be started and to continue antibiotics. Serum cortisol level was ordered, and if lobe may consider stress doses of hydrocortisone. Labs today have not been drawn mostly because of the patient had no venous access. Somewhat along the line I believe vascular yonatan neville was also consulted on this patient for vascular access. At any rate she does have now vascular access, she is in the ICU, and she remains on antibiotics. The patient has been moaning and groaning, and she does not seem to be appropriate. She is confused. But not in respiratory distress, she is on 2 L nasal cannula. Patient was evaluated by neurology yesterday, and she had a CT of the brain, findings are suspicious for acute ischemic left frontal and parietal lobe with no midline shift. Objective - Vital Signs Vital signs: Vital Signs Temp 98.3 F 06/03/21 07:51 Pulse 123 H 06/03/21 08:30 Resp 18 06/03/21 07:51 BP 79/42 06/03/21 08:43 Pulse Ox 98 06/03/21 07:51 Intake & Output 06/02/21 06/03/21 06/03/21 18:59 06:59 18:59 Intake Total 0 Output Total 0 Balance 0 0 Weight 77 kg Intake: Oral 0 Output: Stool 0 Other: Voiding Method Diaper Diaper Diaper Incontinent Incontinent Incontinent - Exam Gen: This is a 56-year-old obese female resting in the ICU bed, on 2 L nasal cannula, not in respiratory distress. HEENT: Head is atraumatic, normocephalic. Pupils equal, round. Sclerae is anicteric. NECK: Supple. No JVD. No lymphadenopathy. No thyromegaly. LUNGS: Symmetrical chest expansion, diminished breath sounds at the bases. HEART: Regular rate and rhythm. No murmur. ABDOMEN: Soft. Bowel sounds are present. Surgical incision noted in the mid abdomen related to recent peritoneal dialysis catheter. Patient has a left hemodialysis catheter in the left groin. EXTREMITIES: No pedal edema. No calf tenderness. scar on the left knee from previous surgery. NEUROLOGICAL: Patient is awake, does not respond to any verbal stimuli, she is confused, moaning and groaning most of the time. - Labs CBC & Chem 7: 06/01/21 20:32 06/01/21 20:32 Labs: Abnormal Lab Results - Last 24 Hours (Table) 06/03/21 Range/Units 11:30 HDL Cholesterol 36.20 L (40.00-60.00) mg/dL Microbiology - Last 24 Hours (Table) 05/28/21 12:57 Blood Culture - Preliminary Blood No Growth after 120 hours Assessment and Plan Assessment: Impression: Hypotension, most likely secondary to sepsis and septic shock. Likely source is abdomen. 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 End-stage renal disease, on peritoneal dialysis in the past, and now she is on hemodialysis. Benign essential hypertension. History of hypothyroidism. Dyslipidemia. History of gout. Chronic anemia of chronic disease. Severe dehydration Electrolytes imbalance with hypokalemia and hypovolemic hyponatremia Recommendation: Patient was transferred to the ICU and will continue to monitor the patient in the ICU Continue antibiotics. Fluid boluses and start norepinephrine now that we have a central line in place. Continue hemodialysis. Repeat blood cultures. Continue GI and DVT prophylaxis. Monitor electrolytes and correct accordingly. Continue to follow with other consultants including nephrology, cardiology, vascular surgery, and infectious disease on the case. As well as neurology. Patient is obviously critically ill, and prognosis is extremely poor and guarded. Apparently family has been approached about CODE STATUS, and the patient remains full code. Discussed her condition with nephrology on the case. Patient is critically ill, critical care time is over 30 minutes, not including the time placed on procedures. Time with Patient: Greater than 30
[2021-06-03 14:52] LABS: Estimated Average Glucose 95
[2021-06-03 15:47] LABS: Calcium 7.7 mg/dL (8.4-10.2); Potassium 3.2 mmol/L (3.5-5.1)
--- NOTE | 2021-06-03 17:26 | PCN ---
PROCEDURE NOTE OPERATIVE REPORT: Placement of the left femoral triple-lumen catheter. PREOPERATIVE DIAGNOSIS: Hypotension, sepsis, septic shock. POSTOPERATIVE DIAGNOSIS: Hypotension, sepsis, septic shock. ANESTHESIA USED: 2 mL of 1% lidocaine. PROCEDURE DETAILS: The patient was placed in the supine position, the left groin was prepared in a sterile fashion and drapes were applied. The left femoral artery was palpated, cannulated, and a guidewire was placed. A triple-lumen catheter was inserted over the guidewire, and the guidewire was removed. Good blood flow was noted in the 3 different ports of the triple-lumen catheter. The line was secured using 3.0 silk sutures. No evidence of any immediate complications. MMODL / IJN: [id number] /
--- NOTE | 2021-06-03 17:26 | OP ---
OPERATIVE REPORT OPERATIVE REPORT: Placement of left brachial arterial line. PREOPERATIVE DIAGNOSIS: Hypotension, sepsis, septic shock. POSTOPERATIVE DIAGNOSIS: Hypotension, sepsis, septic shock. ANESTHESIA USED: None deployed. PROCEDURE DESCRIPTION: The patient was placed in A supine position. The left brachial region was prepared in a sterile fashion and drapes were applied. The left brachial artery was palpated, cannulated, and the guidewire was placed. A Cook's catheter was inserted over the guidewire, and the guidewire was removed. Good waveform, good blood flow noted. No complications. Line was secured using 3.0 silk sutures. MMODL / IJN: [id number] /
--- NOTE | 2021-06-03 17:43 | P.PN ---
Subjective Progress Note Date: 06/03/21 I am seeing the patient for the first time for neurological management. See Dr. Carrion's note for further details if needed. Per the patient's nurse, patient was hypotensive and suspected to be in sepsis. She was transferred to ICU for escalation of care and was started on Norepinephrine. Per nurse, patient is moaning and not verbally responding. She is getting dialysis today in afternoon. Objective - Vital Signs Vital signs: Vital Signs Temp 97.8 F 06/03/21 14:51 Pulse 102 H 06/03/21 16:00 Resp 0 L 06/03/21 16:00 BP 79/42 06/03/21 08:43 Pulse Ox 87 L 06/03/21 15:30 Intake & Output 06/02/21 06/03/21 06/03/21 18:59 06:59 18:59 Intake Total 2678.467 Output Total 0 0 Balance 0 2678.467 Weight 77 kg Intake: Intake, IV Titration 2678.467 Amount Dextrose 5%-0.9% NaCl 1, 400 000 ml @ 100 mls/hr IV . Q10H [facility] Rx#:[id number] Norepinephrine 4 mg In 178.467 Sodium Chloride 0.9% 250 ml @ 0.05 MCG/KG/MIN 14. 669 mls/hr IV .[id number] [facility] Rx#:[id number] Piperacillin-Tazobactam 3 100 .375 gm In Sodium Chloride 0.9% 100 ml @ 25 mls/hr IVPB Q8H [facility] Rx#: [id number] Sodium Chloride 0.9% 2, 2000 000 ml @ 999 mls/hr IV . Q2H1M [facility] Rx#:[id number] Oral 0 Output: Urine 0 Stool 0 Other: Voiding Method Diaper Diaper Diaper Incontinent Incontinent Incontinent ABP, PAP, CO, CI - Last Documented Arterial Blood Pressure 84/45 - Exam GENERAL: The patient is lying in bed and is moaning. She does not appear in distress. NEUROLOGICAL: Limited because of her condition. Higher mental function: The patient is comatose but would open her eye to verbal stimuli. She is not following commands or verbalizing. She is only moaning. Cranial nerves: The pupils are round, equal and reactive to light. Primary gaze is midline but at time it was briefly has right or left gaze preferrance. Has mild right facial weakness. Otherwise could not assess rest of cranial nerves. Motor: The strength could not assess. No jerking of any extremities. But has brief tremor over the left hand. Cerebellum: Could not assess. Sensation: Could not assess light touch. WORK-UP: [place] virus PCR was not detected. Lipid panel is triglyceride of 137, cholesterol 105, LDL is 41 and HDL is 36. CT scan of the brain ON 06/02/21 reveals evidence of a left temporoparietal acute infarct. Carotid duplex was reported as no significant stenosis of bilateral ICA. Minimal elevated right ICA systolic velocity. 2-D echo was reported as overlying concentric left ventricular hypertrophy. Ejection fraction of 55-60%. Left atrial size is normal - Labs CBC & Chem 7: 06/01/21 20:32 06/03/21 11:30 Labs: Abnormal Lab Results - Last 24 Hours (Table) 06/03/21 06/03/21 Range/Units 11:30 11:30 Potassium 3.2 L (3.5-5.1) mmol/L Chloride 116 H (98-107) mmol/L Carbon Dioxide 19 L (22-30) mmol/L BUN 22 H (7-17) mg/dL Creatinine 4.23 H (0.52-1.04) mg/dL Glucose 123 H (74-99) mg/dL Calcium 7.7 L (8.4-10.2) mg/dL HDL Cholesterol 36.20 L (40.00-60.00) mg/dL Microbiology - Last 24 Hours (Table) 05/28/21 12:57 Blood Culture - Final Blood No Growth after 144 hours Assessment and Plan Assessment: Acute ischemic stroke (left temporal parietal. With symptoms of right facial droop and right hemiplegia and aphasia). No IV TPA since outside the window Altered mental status due to multifactorial: Probable Septic encephalopathy (suspected catheter associated peritonitis) and a component of metabolic encephalopathy End-stage renal disease and is on dialysis History of benign essential hypertension and during this hospital stay has hypotension History of hypertension Dyslipidemia History of gout Plan: Patient is on aspirin 300 mg suppository since the patient cannot swallow as well as the has an order of Plavix [address] Carrion. Continue Lipitor 10 mg daily at bedtime Every 4 hours neuro checks Ordered routine EEG. I will not start the patient on an antiepileptic drug unless there is epileptiform discharges or seizure on the EEG. Ordered ammonia level. If elevated we'll defer the management to the ICU and the primary team PT, OT and METALLURGICAL LAB TECHNICIAN are consulted Placed on cardiac monitoring Nephrology is on board the patient is getting dialysis today. ID team is on board We'll defer the rest of medical management to the ICU in the primary team Please avoid any further hypotensive episodes and we'll defer the management to the primary and IC team. Or DVT prophylaxis will defer the decision to the primary and ICU team. Patient has acute thrombocythemia and for now place on SCD. Upon discharge the patient needs to follow-up with a neurologist as outpatient within 1-2 weeks. Plan was discussed with the patient's nurse. Hasmukh Scott M.D. Neuro-Hospitalist. Time with Patient: Less than 30
[2021-06-03] MEDS ORDERED: POTASSIUM CHLORIDE ER 20 MEQ TAB.ER PO STA (18:06)
[2021-06-03] MEDS ORDERED: POTASSIUM CHLORIDE 20 MEQ in WATER FOR INJECTION 1 100ML.BAG IVPB STA (18:11)
[2021-06-03] MEDS: NOREPINEPHRINE 32 MG in SODIUM CHLORIDE 0.9% 218 ML IV SCH (18:48)
[2021-06-03] MEDS: ATORVASTATIN 10 MG TAB PO SCH (19:58)
[2021-06-03] MEDS: SERTRALINE 25 MG TAB PO SCH (19:58)
[2021-06-04] MEDS: DEXTROSE 5%-0.9% NACL 1,000 ML IV SCH ×3 (03:16→21:39)
[2021-06-04] MEDS: PIPERACILLIN-TAZOBACTAM 3.375 GM in SODIUM CHLORIDE 0.9% 100 ML IVPB SCH ×3 (03:16→17:04)
[2021-06-04 04:09] LABS: Calcium 7.9 mg/dL (8.4-10.2); Magnesium 1.8 mg/dL (1.6-2.3); Phosphorus 2.7 mg/dL (2.5-4.5); Potassium 3.5 mmol/L (3.5-5.1)
[2021-06-04 04:51] LABS: Anisocytosis Slight; HCT 29.6 % (34.0-46.0); HGB 9.2 gm/dL (11.4-16.0); Hypochromasia Marked; MCH 32.3 pg (25.0-35.0); MCV 104.3 fL (80.0-100.0); Macrocytosis Moderate; Mean Platelet Volume 13.9; RBC 2.84 m/uL (3.80-5.40); RDW 17.4 % (11.5-15.5); WBC 28.4 k/uL (3.8-10.6)
[2021-06-04 04:55] LABS: Platelet Count 78 k/uL (150-450)
[2021-06-04] MEDS: PANTOPRAZOLE 40 MG TABLET PO SCH (04:58)
[2021-06-04] MEDS: MIDODRINE 5 MG TAB PO SCH ×3 (04:58→17:11)
[2021-06-04] MEDS: LEVOTHYROXINE 112 MCG TAB PO SCH ×2 (04:58→10:39)
[2021-06-04] MEDS: SEVELAMER 800 MG TAB PO SCH (04:58)
[2021-06-04] MEDS: HYDROCORTISONE SUCCINATE 100 MG/2 ML VIAL IV SCH (08:46)
[2021-06-04] MEDS ORDERED: POTASSIUM CHLORIDE ER 20 MEQ TAB.ER PO STA (09:35)
--- NOTE | 2021-06-04 09:36 | P.PN ---
Subjective Patient is seen in follow-up for end-stage renal disease. She is maintained hemodialysis. PD catheter was removed due to resistant peritonitis. Receiving IV fluids. Also on Levophed. Blood pressure improved. Vital signs are stable. HEENT: Head exam is unremarkable. LUNGS: Breath sounds decreased. HEART: Rate and Rhythm are regular. ABDOMEN: Soft, no distention. EXTREMITITES: No edema. Objective - Vital Signs Vital signs: Vital Signs Temp 96.7 F L 06/04/21 08:00 Pulse 44 L 06/04/21 08:30 Resp 18 06/04/21 08:30 BP 114/78 06/04/21 08:30 Pulse Ox 100 06/04/21 08:30 Intake & Output 06/03/21 06/04/21 06/04/21 18:59 06:59 18:59 Intake Total 3036.155 1320.875 200 Output Total 800 0 0 Balance 2236.155 1320.875 200 Weight 77 kg 85.8 kg Intake: Intake, IV Titration 3036.155 1320.875 200 Amount Dextrose 5%-0.9% NaCl 1, 600 1200 200 000 ml @ 100 mls/hr IV . Q10H [facility] Rx#:[id number] Norepinephrine 32 mg In 20.875 Sodium Chloride 0.9% 218 ml @ 0.05 MCG/KG/MIN 1. 805 mls/hr IV .Q24H [facility] Rx#:[id number] Norepinephrine 4 mg In 336.155 Sodium Chloride 0.9% 250 ml @ 0.05 MCG/KG/MIN 14. 669 mls/hr IV .[id number] [facility] Rx#:[id number] Piperacillin-Tazobactam 3 100 .375 gm In Sodium Chloride 0.9% 100 ml @ 25 mls/hr IVPB Q8H [facility] Rx#: [id number] Potassium Chloride 20 meq 100 In Water For Injection 1 100ml.bag @ 50 mls/hr IVPB ONCE ST[facility] Rx#: [id number] Sodium Chloride 0.9% 2, 2000 000 ml @ 999 mls/hr IV . Q2H1M [facility] Rx#:[id number] Oral 0 Output: Urine 0 0 0 Stool 0 Other 800 Other: Voiding Method Diaper Diaper Diaper Incontinent Incontinent Incontinent # Voids 0 ABP, PAP, CO, CI - Last Documented Arterial Blood Pressure 107/44 - Labs CBC & Chem 7: 06/04/21 03:20 06/04/21 03:20 Labs: Abnormal Lab Results - Last 24 Hours (Table) 06/03/21 06/03/21 06/04/21 Range/Units 11:30 11:30 03:20 WBC (3.8-10.6) k/uL RBC (3.80-5.40) m/uL Hgb (11.4-16.0) gm/dL Hct (34.0-46.0) % MCV (80.0-100.0) fL RDW (11.5-15.5) % Plt Count (150-450) k/uL Potassium 3.2 L (3.5-5.1) mmol/L Chloride 116 H 116 H (98-107) mmol/L Carbon Dioxide 19 L 21 L (22-30) mmol/L BUN 22 H (7-17) mg/dL Creatinine 4.23 H 2.60 H (0.52-1.04) mg/dL Glucose 123 H 201 H (74-99) mg/dL Calcium 7.7 L 7.9 L (8.4-10.2) mg/dL HDL Cholesterol 36.20 L (40.00-60.00) mg/dL 06/04/21 Range/Units 03:20 WBC 28.4 H (3.8-10.6) k/uL RBC 2.84 L (3.80-5.40) m/uL Hgb 9.2 L (11.4-16.0) gm/dL Hct 29.6 L (34.0-46.0) % MCV 104.3 H (80.0-100.0) fL RDW 17.4 H (11.5-15.5) % Plt Count 78 L (150-450) k/uL Potassium (3.5-5.1) mmol/L Chloride (98-107) mmol/L Carbon Dioxide (22-30) mmol/L BUN (7-17) mg/dL Creatinine (0.52-1.04) mg/dL Glucose (74-99) mg/dL Calcium (8.4-10.2) mg/dL HDL Cholesterol (40.00-60.00) mg/dL Microbiology - Last 24 Hours (Table) 05/28/21 12:57 Blood Culture - Final Blood No Growth after 144 hours Assessment and Plan Plan: Assessment: 1. End-stage renal disease maintained on hemodialysis. 2. Hypokalemia from poor intake and PD losses. Replaced. Improved. 3. Hypotension due to sepsis. On midodrine. Also on Levophed and IV steroids. Cortisol level not low. Better. 4. Chronic kidney disease mineral bone disease maintained on Renvela. Phosphorus level 2.7 dated 06/04/2021. 5. PD associated peritonitis with fluid culture positive for group D enterococcus. PD catheter removed 05/30/21. On IV antibiotics. Infectious disease following. 6. Anemia of chronic kidney disease. Plan: Hemodialysis tomorrow. Wean Levophed. Decrease rate of normal saline to 50 mL an hour. EF preserved. Replace potassium. Check iron studies. Add Aranesp. Stop Renvela.
--- NOTE | 2021-06-04 09:50 | P.PN ---
Subjective Progress Note Date: 06/04/21 INTERVAL HISTORY: The patient is a 56-year-old female admitted with dehydration and hypokalemia. Patient has a known history of end-stage renal disease on dialysis, hypertension, dyslipidemia, hypothyroidism. Patient does not follow with a senior portfolio manager. Patient was transferred to ICU yesterday for change in mental status, worsening sepsis, sinus tachycardia and hypotension related to sepsis. Patient was found to have a acute right frontal parietal CVA. Today patient is examined resting in bed with no signs of acute distress. Patient is lethargic and does not follow commands. Patient continues to have moaning and groaning. Patient will open her eyes to touch but is not alert. Patient contin ues on levo. Hypotension has improved, upon examination blood pressure was 115/67. Patient is alert tachycardic, she is bradycardic with heart rate in the 40s to 50s, patient had an echocardiogram completed yesterday which showed a normal LV function with an ejection fraction of 55-60%. Patient did receive hemodialysis yeasterday. Diagnostics: Vital signs: Blood pressure 115/67, heart rate 44, respirations 18, 100% on 2 L nasal cannula, afebrile Echocardiogram shows normal LV function with an ejection fraction of 55-60% Chest x-ray shows no acute cardiopulmonary process Labs reviewedWBC 28.4, hemoglobin 9.2, platelets 78, sodium 140, potassium 3.5, B1 13, creatinine 2.6, magnesium 1.8, cholesterol 105, triglycerides 137, LDL 41, HDL 36 Objective - Vital Signs Vital signs: Vital Signs Temp 96.7 F L 06/04/21 08:00 Pulse 44 L 06/04/21 08:30 Resp 18 06/04/21 08:30 BP 114/78 06/04/21 08:30 Pulse Ox 100 06/04/21 08:30 Intake & Output 06/03/21 06/04/21 06/04/21 18:59 06:59 18:59 Intake Total 3036.155 1320.875 200 Output Total 800 0 0 Balance 2236.155 1320.875 200 Weight 77 kg 85.8 kg Intake: Intake, IV Titration 3036.155 1320.875 200 Amount Dextrose 5%-0.9% NaCl 1, 600 1200 200 000 ml @ 100 mls/hr IV . Q10H [facility] Rx#:[id number] Norepinephrine 32 mg In 20.875 Sodium Chloride 0.9% 218 ml @ 0.05 MCG/KG/MIN 1. 805 mls/hr IV .Q24H [facility] Rx#:[id number] Norepinephrine 4 mg In 336.155 Sodium Chloride 0.9% 250 ml @ 0.05 MCG/KG/MIN 14. 669 mls/hr IV .[id number] [facility] Rx#:[id number] Piperacillin-Tazobactam 3 100 .375 gm In Sodium Chloride 0.9% 100 ml @ 25 mls/hr IVPB Q8H [facility] Rx#: [id number] Potassium Chloride 20 meq 100 In Water For Injection 1 100ml.bag @ 50 mls/hr IVPB ONCE [facility] Rx#: [id number] Sodium Chloride 0.9% 2, 2000 000 ml @ 999 mls/hr IV . Q2H1M [facility] Rx#:[id number] Oral 0 Output: Urine 0 0 0 Stool 0 Other 800 Other: Voiding Method Diaper Diaper Diaper Incontinent Incontinent Incontinent # Voids 0 ABP, PAP, CO, CI - Last Documented Arterial Blood Pressure 107/44 - Exam PHYSICAL EXAM: VITAL SIGNS: Reviewed. GENERAL: Well-developed in no acute distress. HEENT: Head is normocephalic. Pupils are equal, round. Sclerae anicteric. Mucous membranes of the mouth are moist. NECK: Supple. No JVD or thyromegaly RESPIRATORY: Respirations even and unlabored. Lungs diminished to auscultation bilaterally. CARDIO: Regular rate and rhythm. S1 and S2 heard. No murmur or gallops. EXTREMITIES: Normal range of motion. No clubbing or cyanosis. Peripheral pulses intact. Generalized edema NEURO: Orientated x0, patient opens eyes to touch - Labs CBC & Chem 7: 06/04/21 03:20 06/04/21 03:20 Labs: Abnormal Lab Results - Last 24 Hours (Table) 06/03/21 06/03/21 06/04/21 Range/Units 11:30 11:30 03:20 WBC (3.8-10.6) k/uL RBC (3.80-5.40) m/uL Hgb (11.4-16.0) gm/dL Hct (34.0-46.0) % MCV (80.0-100.0) fL RDW (11.5-15.5) % Plt Count (150-450) k/uL Potassium 3.2 L (3.5-5.1) mmol/L Chloride 116 H 116 H (98-107) mmol/L Carbon Dioxide 19 L 21 L (22-30) mmol/L BUN 22 H (7-17) mg/dL Creatinine 4.23 H 2.60 H (0.52-1.04) mg/dL Glucose 123 H 201 H (74-99) mg/dL Calcium 7.7 L 7.9 L (8.4-10.2) mg/dL HDL Cholesterol 36.20 L (40.00-60.00) mg/dL 06/04/21 Range/Units 03:20 WBC 28.4 H (3.8-10.6) k/uL RBC 2.84 L (3.80-5.40) m/uL Hgb 9.2 L (11.4-16.0) gm/dL Hct 29.6 L (34.0-46.0) % MCV 104.3 H (80.0-100.0) fL RDW 17.4 H (11.5-15.5) % Plt Count 78 L (150-450) k/uL Potassium (3.5-5.1) mmol/L Chloride (98-107) mmol/L Carbon Dioxide (22-30) mmol/L BUN (7-17) mg/dL Creatinine (0.52-1.04) mg/dL Glucose (74-99) mg/dL Calcium (8.4-10.2) mg/dL HDL Cholesterol (40.00-60.00) mg/dL Microbiology - Last 24 Hours (Table) 05/28/21 12:57 Blood Culture - Final Blood No Growth after 144 hours Assessment and Plan Assessment: Sinus tachycardia, likely related to sepsis, dehydration, and acute CVA Hypotension likely related to sepsis, Hypovolemia/dehydration Acute right frontal parietal CVA Thrombocytopenia Metabolic encephalopathy History of hypertension Hyperlipidemia Hypothyroidism Plan: Continue on Levophed and titrate blood pressure tolerates Continue with all other current medications Continue telemetry monitoring Further recommendations based on clinical course The above impression and plan of care have been discussed and directed by the signing physician. Re Tapia, nurse practitioner, acting as scribe for signing physician.
[2021-06-04] MEDS ORDERED: DARBEPOETIN ALFA 40 MCG/0.4 ML SYRINGE SQ SCH (10:00)
[2021-06-04] MEDS: allopurinoL 100 MG TAB PO SCH (10:38)
[2021-06-04] MEDS: FAMOTIDINE 20 MG TAB PO SCH (10:38)
[2021-06-04] MEDS: MAGNESIUM OXIDE 400 MG TAB PO SCH (10:39)
[2021-06-04] MEDS: CLOPIDOGREL 75 MG TAB PO SCH (10:40)
[2021-06-04] MEDS: ASPIRIN 300 MG SUPP RECTAL SCH (10:57)
[2021-06-04] MEDS: FOLIC ACID-VIT B COMPLEX-VIT C 1 CAP PO SCH (11:25)
--- NOTE | 2021-06-04 12:17 | P.PN ---
<Narciso Poloee - Last Filed: 06/04/21 12:14> Subjective Progress Note Date: 06/04/21 CHIEF COMPLAINT: Peritoneal dialysis catheter associated infection HISTORY OF PRESENT ILLNESS: 56-year-old female who presented to the emergency room with changes in her mental status and weakness. She was found to be septic for which they believe the source with her peritoneal dialysis catheter. She had that removed on 05/30/2020. She had been doing well. She had right femoral tunneled catheter placed on 05/31/[address] Navarro. The patient was transferred to the ICU yesterday for hypotension. She's been afebrile. She is not very alert were communicating. No acute changes through the night. Re corded bowel movement 3 days ago. PHYSICAL EXAM: VITAL SIGNS: Reviewed. GENERAL: Well-developed appears in no acute distress. HEENT: No sclera icterus. Extraocular movements grossly intact. Moist buccal mucosa. Head is atraumatic, normocephalic. ABDOMEN: Soft. Nondistended. Nontender. Incision clean dry and intact with no erythema or drainage. NEUROLOGIC: Lethargic with mental status changes. ASSESSMENT: 1. Infected peritoneal dialysis catheter status post removal 2. End-stage renal disease requiring dialysis PLAN: -Continue symptomatic and supportive care -Continue ICU management -Continue antibiotics per recommendations from infectious disease The impression and plan of care has been dictated as directed. Dr. Somers I performed a history and examination of this patient, discussed the same with the dictator. I agree with the dictator's note ,documented as a scribe. Any additional findings or plans will be noted. Objective - Vital Signs Vital signs: Vital Signs Temp 96.7 F L 06/04/21 08:00 Pulse 44 L 06/04/21 08:30 Resp 18 06/04/21 08:30 BP 114/78 06/04/21 08:30 Pulse Ox 100 06/04/21 08:30 Intake & Output 06/03/21 06/04/21 06/04/21 18:59 06:59 18:59 Intake Total 3036.155 1320.875 200 Output Total 800 0 0 Balance 2236.155 1320.875 200 Weight 77 kg 85.8 kg Intake: Intake, IV Titration 3036.155 1320.875 200 Amount Dextrose 5%-0.9% NaCl 1, 600 1200 200 000 ml @ 100 mls/hr IV . Q10H [facility] Rx#:[id number] Norepinephrine 32 mg In 20.875 Sodium Chloride 0.9% 218 ml @ 0.05 MCG/KG/MIN 1. 805 mls/hr IV .Q24H [facility] Rx#:[id number] Norepinephrine 4 mg In 336.155 Sodium Chloride 0.9% 250 ml @ 0.05 MCG/KG/MIN 14. 669 mls/hr IV .[id number] [facility] Rx#:[id number] Piperacillin-Tazobactam 3 100 .375 gm In Sodium Chloride 0.9% 100 ml @ 25 mls/hr IVPB Q8H [facility] Rx#: [id number] Potassium Chloride 20 meq 100 In Water For Injection 1 100ml.bag @ 50 mls/hr IVPB ONCE STA Rx#: [id number] Sodium Chloride 0.9% 2, 2000 000 ml @ 999 mls/hr IV . Q2H1M [facility] Rx#:[id number] Oral 0 Output: Urine 0 0 0 Stool 0 Other 800 Other: Voiding Method Diaper Diaper Diaper Incontinent Incontinent Incontinent # Voids 0 ABP, PAP, CO, CI - Last Documented Arterial Blood Pressure 107/44 - Labs CBC & Chem 7: 06/04/21 03:20 06/04/21 03:20 Labs: Abnormal Lab Results - Last 24 Hours (Table) 06/03/21 06/03/21 06/04/21 Range/Units 11:30 11:30 03:20 WBC (3.8-10.6) k/uL RBC (3.80-5.40) m/uL Hgb (11.4-16.0) gm/dL Hct (34.0-46.0) % MCV (80.0-100.0) fL RDW (11.5-15.5) % Plt Count (150-450) k/uL Potassium 3.2 L (3.5-5.1) mmol/L Chloride 116 H 116 H (98-107) mmol/L Carbon Dioxide 19 L 21 L (22-30) mmol/L BUN 22 H (7-17) mg/dL Creatinine 4.23 H 2.60 H (0.52-1.04) mg/dL Glucose 123 H 201 H (74-99) mg/dL Calcium 7.7 L 7.9 L (8.4-10.2) mg/dL HDL Cholesterol 36.20 L (40.00-60.00) mg/dL 06/04/21 Range/Units 03:20 WBC 28.4 H (3.8-10.6) k/uL RBC 2.84 L (3.80-5.40) m/uL Hgb 9.2 L (11.4-16.0) gm/dL Hct 29.6 L (34.0-46.0) % MCV 104.3 H (80.0-100.0) fL RDW 17.4 H (11.5-15.5) % Plt Count 78 L (150-450) k/uL Potassium (3.5-5.1) mmol/L Chloride (98-107) mmol/L Carbon Dioxide (22-30) mmol/L BUN (7-17) mg/dL Creatinine (0.52-1.04) mg/dL Glucose (74-99) mg/dL Calcium (8.4-10.2) mg/dL HDL Cholesterol (40.00-60.00) mg/dL Microbiology - Last 24 Hours (Table) 05/28/21 12:57 Blood Culture - Final Blood No Growth after 144 hours <Toni Somers - Last Filed: 06/04/21 14:33> Subjective I have personally seen and examined the patient, reviewed the TUBE BLOWER /PAs history, exam and MDM and agree with the assessment and plan as written. Based on total visit time, I have performed more than 50% of the visit. As above. Patient remains in the ICU. Having EEG performed at this time. Per previous notes no tenderness on examination. Continue tube feeds through nasogastric tube. Will follow. Objective - Vital Signs Vital signs: Vital Signs Temp 96.4 F L 06/04/21 12:15 Pulse 68 06/04/21 14:00 Resp 16 06/04/21 14:00 BP 110/89 06/04/21 14:00 Pulse Ox 100 06/04/21 14:00 Intake & Output 06/03/21 06/04/21 06/04/21 18:59 06:59 18:59 Intake Total 3036.155 1320.875 693.855 Output Total 800 0 0 Balance 2236.155 1320.875 693.855 Weight 77 kg 85.8 kg 85.4 kg Intake: IV 12 0.9NS Pressure BAg 12 Intake, IV Titration 3036.155 1320.875 586.855 Amount Dextrose 5%-0.9% NaCl 1, 600 1200 500 000 ml @ 50 mls/hr IV . Q20H [facility] Rx#:[id number] Norepinephrine 32 mg In 20.875 86.855 Sodium Chloride 0.9% 218 ml @ 0.05 MCG/KG/MIN 1. 805 mls/hr IV .Q24H [facility] Rx#:[id number] Norepinephrine 4 mg In 336.155 Sodium Chloride 0.9% 250 ml @ 0.05 MCG/KG/MIN 14. 669 mls/hr IV .[id number] [facility] Rx#:[id number] Piperacillin-Tazobactam 3 100 .375 gm In Sodium Chloride 0.9% 100 ml @ 25 mls/hr IVPB Q8H [facility] Rx#: [id number] Potassium Chloride 20 meq 100 In Water For Injection 1 100ml.bag @ 50 mls/hr IVPB ONCE STA Rx#: [id number] Sodium Chloride 0.9% 2, 2000 000 ml @ 999 mls/hr IV . Q2H1M [facility] Rx#:[id number] Oral 0 10 Tube Feeding 85 Output: Urine 0 0 0 Stool 0 Other 800 Other: Voiding Method Diaper Diaper Diaper Incontinent Incontinent Incontinent # Voids 0 ABP, PAP, CO, CI - Last Documented Arterial Blood Pressure 119/58 - Labs CBC & Chem 7: 06/04/21 03:20 06/04/21 03:20 Labs: Abnormal Lab Results - Last 24 Hours (Table) 06/03/21 06/04/21 06/04/21 Range/Units 11:30 03:20 03:20 WBC 28.4 H (3.8-10.6) k/uL RBC 2.84 L (3.80-5.40) m/uL Hgb 9.2 L (11.4-16.0) gm/dL Hct 29.6 L (34.0-46.0) % MCV 104.3 H (80.0-100.0) fL RDW 17.4 H (11.5-15.5) % Plt Count 78 L (150-450) k/uL Potassium 3.2 L (3.5-5.1) mmol/L Chloride 116 H 116 H (98-107) mmol/L Carbon Dioxide 19 L 21 L (22-30) mmol/L BUN 22 H (7-17) mg/dL Creatinine 4.23 H 2.60 H (0.52-1.04) mg/dL Glucose 123 H 201 H (74-99) mg/dL Plasma Lactic Acid David (0.7-2.0) mmol/L Calcium 7.7 L 7.9 L (8.4-10.2) mg/dL 06/04/21 Range/Units 12:15 WBC (3.8-10.6) k/uL RBC (3.80-5.40) m/uL Hgb (11.4-16.0) gm/dL Hct (34.0-46.0) % MCV (80.0-100.0) fL RDW (11.5-15.5) % Plt Count (150-450) k/uL Potassium (3.5-5.1) mmol/L Chloride (98-107) mmol/L Carbon Dioxide (22-30) mmol/L BUN (7-17) mg/dL Creatinine (0.52-1.04) mg/dL Glucose (74-99) mg/dL Plasma Lactic Acid David 3.7 H* (0.7-2.0) mmol/L Calcium (8.4-10.2) mg/dL Microbiology - Last 24 Hours (Table) 06/03/21 11:30 Blood Culture - Preliminary Blood No Growth after 24 hours 05/28/21 12:57 Blood Culture - Final Blood No Growth after 144 hours Assessment and Plan (1) ESRD on peritoneal dialysis Current Visit: No Status: Chronic Code(s): N18.6 - END STAGE RENAL DISEASE; Z99.2 - DEPENDENCE ON RENAL DIALYSIS SNOMED Code(s): 863735778
--- NOTE | 2021-06-04 12:20 | P.PN ---
Subjective Progress Note Date: 06/04/21 Principal diagnosis: Acute peritonitis, sepsis, and possible septic shock. 06/01/2023 patient's condition is stable. The patient is hemodynamically improved and the patient is able to support her own blood pressure. The patient is currently running away cervical os 12.8 with a hemoglobin of 9.8. The BUN is at 33 with a creatinine of 4.5. Sodium is at 133. 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 The patient remains on vancomycin being administered IV. The patient's would have the CAPD catheter removed by general surgery and have a dialysis catheter inserted. Blood pressure is stable for now. The patient's had hydrocortisone level that was elevated and the hydrocortisone IV can be discontinued. No fever. No other significant events otherwise. The patient is calm and comfortable and there are no signs of any respiratory distress and the patient is currently on room air oxygen. Patient was evaluated today on 06/03/21, patient has been followed by Dr. Nielsen on 06/01. Apparently the patient was seen initially on consultation for hypotension, sepsis and septic shock. Patient presented initially with peritonitis. Patient used to be on peritoneal dialysis, and I believe she developed peritoneal dialysis catheter sepsis and peritonitis. A shunt has been treated and evaluated by multiple consultants. Patient was also seen by surgery and she underwent peritoneal dialysis catheter removal. And she was treated all along by infectious disease with multiple antibiotics for her abdominal sepsis/peritonitis. Dr. Nielsen signed off the case, however he was be notified today that the patient needed to be transferred to the ICU and she was developing hypotension again. I evaluated the patient shortly after she was transferred to the ICU, recommended fluid boluses, and I recommended norepinephrine to be started on this patient if she remains hypotensive. Patient is being followed by many consultants including nephrology for her chronic kidney disease. She had a left groin hemodialysis catheter, and I believe she is scheduled to undergo dialysis today. May require norepinephrine to perform hemodialysis. I was able to establish a left groin triple lumen catheter placement, without any complications. I have recommended more fluid boluses and recommended norepinephrine to be started and to continue antibiotics. Serum cortisol level was ordered, and if lobe may consider stress doses of hydrocortisone. Labs today have not been drawn mostly because of the patient had no venous access. Somewhat along the line I believe vascular yonatan neville was also consulted on this patient for vascular access. At any rate she does have now vascular access, she is in the ICU, and she remains on antibiotics. The patient has been moaning and groaning, and she does not seem to be appropriate. She is confused. But not in respiratory distress, she is on 2 L nasal cannula. Patient was evaluated by neurology yesterday, and she had a CT of the brain, findings are suspicious for acute ischemic left frontal and parietal lobe with no midline shift. Patient was reevaluated today on 06/04/2021, remains in the ICU, remains relatively hypotensive, patient is still requiring norepinephrine at 0.18 mcg/kg/m, she received fluid boluses yesterday. She underwent hemodialysis. Patient is being treated for positive bacteremia secondary to Enterococcus faecalis. She remains on Zosyn. Today I recommended a nasogastric tube and recommended that she gets enteral feeding. Patient had a relatively normal electrolytes, however her creatinine is 2.60. WBC count remains high at 28.4 hemoglobin is 9.2 hematocrit 29.6. And she is presently on 2 L nasal cannula. Patient continues to have intermittent episodes of moaning and groaning, but she does not have any purposeful responses. Today I also recommended the patient gets a PICC line placed, and hopefully we can discontinue the left groin central line was a PICC line is established. In the meantime we have a good vascular access to this patient. Again his CT of the brain suspicious for acute left frontal and left parietal ischemic stroke. Patient is being followed by neurology. No chest x-ray was done today, but her chest x-ray from yesterday showed no evidence of acute pulmonary process. Objective - Vital Signs Vital signs: Vital Signs Temp 96.7 F L 06/04/21 08:00 Pulse 47 L 06/04/21 12:00 Resp 7 L 06/04/21 12:00 BP 111/60 06/04/21 12:00 Pulse Ox 100 06/04/21 12:00 Intake & Output 06/03/21 06/04/21 06/04/21 18:59 06:59 18:59 Intake Total 3036.155 1320.875 524.855 Output Total 800 0 0 Balance 2236.155 1320.875 524.855 Weight 77 kg 85.8 kg 85.4 kg Intake: IV 3 0.9NS Pressure BAg 3 Intake, IV Titration 3036.155 1320.875 436.855 Amount Dextrose 5%-0.9% NaCl 1, 600 1200 350 000 ml @ 50 mls/hr IV . Q20H [facility] Rx#:[id number] Norepinephrine 32 mg In 20.875 86.855 Sodium Chloride 0.9% 218 ml @ 0.05 MCG/KG/MIN 1. 805 mls/hr IV .Q24H [facility] Rx#:[id number] Norepinephrine 4 mg In 336.155 Sodium Chloride 0.9% 250 ml @ 0.05 MCG/KG/MIN 14. 669 mls/hr IV .[id number] [facility] Rx#:[id number] Piperacillin-Tazobactam 3 100 .375 gm In Sodium Chloride 0.9% 100 ml @ 25 mls/hr IVPB Q8H [facility] Rx#: [id number] Potassium Chloride 20 meq 100 In Water For Injection 1 100ml.bag @ 50 mls/hr IVPB [facility] Rx#: [id number] Sodium Chloride 0.9% 2, 2000 000 ml @ 999 mls/hr IV . Q2H1M [facility] Rx#:[id number] Oral 0 Tube Feeding 85 Output: Urine 0 0 0 Stool 0 Other 800 Other: Voiding Method Diaper Diaper Diaper Incontinent Incontinent Incontinent # Voids 0 ABP, PAP, CO, CI - Last Documented Arterial Blood Pressure 127/49 - Exam Gen: This is a 56-year-old obese female resting in the ICU bed, on 2 L nasal cannula, not in respiratory distress. HEENT: Head is atraumatic, normocephalic. Pupils equal, round. Sclerae is anicteric. NECK: Supple. No JVD. No lymphadenopathy. No thyromegaly. LUNGS: Symmetrical chest expansion, diminished breath sounds at the bases. HEART: Regular rate and rhythm. No murmur. ABDOMEN: Soft. Bowel sounds are present. Surgical incision noted in the mid abdomen related to recent peritoneal dialysis catheter. Patient has a hemodialysis catheter in the right groin and a triple-lumen catheter in the left groin. EXTREMITIES: No pedal edema. No calf tenderness. scar on the left knee from previous surgery. NEUROLOGICAL: Patient is arousable,, does not respond to any verbal stimuli, she is confused, moaning and groaning most of the time. - Labs CBC & Chem 7: 06/04/21 03:20 06/04/21 03:20 Labs: Abnormal Lab Results - Last 24 Hours (Table) 06/03/21 06/03/21 06/04/21 Range/Units 11:30 11:30 03:20 WBC (3.8-10.6) k/uL RBC (3.80-5.40) m/uL Hgb (11.4-16.0) gm/dL Hct (34.0-46.0) % MCV (80.0-100.0) fL RDW (11.5-15.5) % Plt Count (150-450) k/uL Potassium 3.2 L (3.5-5.1) mmol/L Chloride 116 H 116 H (98-107) mmol/L Carbon Dioxide 19 L 21 L (22-30) mmol/L BUN 22 H (7-17) mg/dL Creatinine 4.23 H 2.60 H (0.52-1.04) mg/dL Glucose 123 H 201 H (74-99) mg/dL Calcium 7.7 L 7.9 L (8.4-10.2) mg/dL HDL Cholesterol 36.20 L (40.00-60.00) mg/dL 06/04/21 Range/Units 03:20 WBC 28.4 H (3.8-10.6) k/uL RBC 2.84 L (3.80-5.40) m/uL Hgb 9.2 L (11.4-16.0) gm/dL Hct 29.6 L (34.0-46.0) % MCV 104.3 H (80.0-100.0) fL RDW 17.4 H (11.5-15.5) % Plt Count 78 L (150-450) k/uL Potassium (3.5-5.1) mmol/L Chloride (98-107) mmol/L Carbon Dioxide (22-30) mmol/L BUN (7-17) mg/dL Creatinine (0.52-1.04) mg/dL Glucose (74-99) mg/dL Calcium (8.4-10.2) mg/dL HDL Cholesterol (40.00-60.00) mg/dL Microbiology - Last 24 Hours (Table) 05/28/21 12:57 Blood Culture - Final Blood No Growth after 144 hours Assessment and Plan Assessment: Impression: Hypotension, most likely secondary to sepsis and septic shock. Likely source is abdomen. 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 End-stage renal disease, on peritoneal dialysis in the past, and now she is on hemodialysis. Benign essential hypertension. History of hypothyroidism. Dyslipidemia. History of gout. Chronic anemia of chronic disease. Severe dehydration Electrolytes imbalance with hypokalemia and hypovolemic hyponatremia, being corrected Recommendation: Continue to monitor the patient in the ICU as long as she is requiring norepinephrine Continue antibiotics. Titrate norepinephrine accordingly and maintain a mean arterial pressure of above 60 Continue hemodialysis. Repeat blood cultures. Continue GI and DVT prophylaxis. Continue to address abnormal electrolytes and correct accordingly Patient is obviously critically ill, and prognosis is extremely poor and guarded. Apparently family has been approached about CODE STATUS, and the patient remains full code.. Patient is critically ill, critical care time is over 30 Time with Patient: Greater than 30
--- NOTE | 2021-06-04 13:19 | P.PN ---
Subjective Progress Note Date: 06/04/21 Per the patient's nurse the patient condition has been about the same and she continues to moan, otherwise no neurological improvement. Objective - Vital Signs Vital signs: Vital Signs Temp 96.4 F L 06/04/21 12:15 Pulse 54 L 06/04/21 13:00 Resp 16 06/04/21 13:00 BP 121/65 06/04/21 13:00 Pulse Ox 100 06/04/21 13:00 Intake & Output 06/03/21 06/04/21 06/04/21 18:59 06:59 18:59 Intake Total 3036.155 1320.875 640.855 Output Total 800 0 0 Balance 2236.155 1320.875 640.855 Weight 77 kg 85.8 kg 85.4 kg Intake: IV 9 0.9NS Pressure BAg 9 Intake, IV Titration 3036.155 1320.875 536.855 Amount Dextrose 5%-0.9% NaCl 1, 600 1200 450 000 ml @ 50 mls/hr IV . Q20H [facility] Rx#:[id number] Norepinephrine 32 mg In 20.875 86.855 Sodium Chloride 0.9% 218 ml @ 0.05 MCG/KG/MIN 1. 805 mls/hr IV .Q24H [facility] Rx#:[id number] Norepinephrine 4 mg In 336.155 Sodium Chloride 0.9% 250 ml @ 0.05 MCG/KG/MIN 14. 669 mls/hr IV .[id number] [facility] Rx#:[id number] Piperacillin-Tazobactam 3 100 .375 gm In Sodium Chloride 0.9% 100 ml @ 25 mls/hr IVPB Q8H [facility] Rx#: [id number] Potassium Chloride 20 meq 100 In Water For Injection 1 100ml.bag @ 50 mls/hr IVPB [facility]CE [facility] Rx#: [id number] Sodium Chloride 0.9% 2, 2000 000 ml @ 999 mls/hr IV . Q2H1M [facility] Rx#:[id number] Oral 0 10 Tube Feeding 85 Output: Urine 0 0 0 Stool 0 Other 800 Other: Voiding Method Diaper Diaper Diaper Incontinent Incontinent Incontinent # Voids 0 ABP, PAP, CO, CI - Last Documented Arterial Blood Pressure 128/69 - Exam GENERAL: The patient is lying in bed and is moaning. She does not appear in distress. NEUROLOGICAL: Limited because of her condition. Higher mental function: The patient is comatose but would open her eye to verbal stimuli. She is not following commands or verbalizing. She is only moaning. Cranial nerves: The pupils are round, equal and reactive to light. Primary gaze is midline but at time it was briefly has right or left gaze preferrance. Has mild right facial weakness. Otherwise could not assess rest of cranial nerves. Motor: The strength could not assess. No jerking of any extremities. But has brief tremor over the left hand. Cerebellum: Could not assess. Sensation: Could not assess light touch. WORK-UP: [place] virus PCR was not detected. Lipid panel is triglyceride of 137, cholesterol 105, LDL is 41 and HDL is 36. CT scan of the brain ON 06/02/21 reveals evidence of a left temporoparietal acute infarct. Carotid duplex was reported as no significant stenosis of bilateral ICA. Minimal elevated right ICA systolic velocity. 2-D echo was reported as overlying concentric left ventricular hypertrophy. Eje ction fraction of 55-60%. Left atrial size is normal - Labs CBC & Chem 7: 06/04/21 03:20 06/04/21 03:20 Labs: Abnormal Lab Results - Last 24 Hours (Table) 06/03/21 06/03/21 06/04/21 Range/Units 11:30 11:30 03:20 WBC (3.8-10.6) k/uL RBC (3.80-5.40) m/uL Hgb (11.4-16.0) gm/dL Hct (34.0-46.0) % MCV (80.0-100.0) fL RDW (11.5-15.5) % Plt Count (150-450) k/uL Potassium 3.2 L (3.5-5.1) mmol/L Chloride 116 H 116 H (98-107) mmol/L Carbon Dioxide 19 L 21 L (22-30) mmol/L BUN 22 H (7-17) mg/dL Creatinine 4.23 H 2.60 H (0.52-1.04) mg/dL Glucose 123 H 201 H (74-99) mg/dL Plasma Lactic Acid David (0.7-2.0) mmol/L Calcium 7.7 L 7.9 L (8.4-10.2) mg/dL HDL Cholesterol 36.20 L (40.00-60.00) mg/dL 06/04/21 06/04/21 Range/Units 03:20 12:15 WBC 28.4 H (3.8-10.6) k/uL RBC 2.84 L (3.80-5.40) m/uL Hgb 9.2 L (11.4-16.0) gm/dL Hct 29.6 L (34.0-46.0) % MCV 104.3 H (80.0-100.0) fL RDW 17.4 H (11.5-15.5) % Plt Count 78 L (150-450) k/uL Potassium (3.5-5.1) mmol/L Chloride (98-107) mmol/L Carbon Dioxide (22-30) mmol/L BUN (7-17) mg/dL Creatinine (0.52-1.04) mg/dL Glucose (74-99) mg/dL Plasma Lactic Acid David 3.7 H* (0.7-2.0) mmol/L Calcium (8.4-10.2) mg/dL HDL Cholesterol (40.00-60.00) mg/dL Microbiology - Last 24 Hours (Table) 05/28/21 12:57 Blood Culture - Final Blood No Growth after 144 hours Assessment and Plan Assessment: Acute ischemic stroke (left temporal parietal. With symptoms of right facial droop and right hemiplegia and aphasia). No IV TPA since outside the window Altered mental status due to multifactorial: Probable Septic encephalopathy (suspected catheter associated peritonitis) and a component of metabolic encephalopathy End-stage renal disease and is on dialysis History of benign essential hypertension and during this hospital stay has hypotension History of hypertension Dyslipidemia History of gout Plan: Patient is on aspirin 300 mg suppository since the patient cannot swallow as well as the has an order of Plavix [address] Carrion. Continue Lipitor 10 mg daily at bedtime Continue neuro checks Pending routine EEG. I will not start the patient on an antiepileptic drug unless there is epileptiform discharges or seizure on the EEG. Ordered ammonia level. If elevated we'll defer the management to the ICU and the primary team PT, OT and RED CAP are consulted Placed on cardiac monitoring Nephrology is on board the patient is getting dialysis today. ID team is on board We'll defer the rest of medical management to the ICU in the primary team Please avoid any further hypotensive episodes and we'll defer the management to the primary and IC team. Or DVT prophylaxis will defer the decision to the primary and ICU team. Patient has acute thrombocythemia and for now place on SCD. Upon discharge the patient needs to follow-up with a neurologist as outpatient within 1-2 weeks. Plan was discussed with the patient's nurse. Hasmukh Scott M.D. Neuro-Hospitalist.
--- NOTE | 2021-06-04 13:19 | P.PN ---
Subjective Progress Note Date: 06/04/21 HISTORY OF PRESENT ILLNESS 56-year-old female with developmental delay who had history of end-stage renal disease on peritoneal dialysis, history of hypertension, hyperlipidemia, h ypothyroidism who had an infected left knee late last year had surgery and ended up going to rehab for long time was home for the last few weeks when patient developed to have significant change mental status with decreased oral intake with worsening symptoms overall for the last few days have been having fatigue tiredness not been eating or drinking no now moving. Also her dialysis has been getting quite bit worse patient apparently will be switch to hemodialysis was told need workup for fistula graft the left arm for possible hemodialysis. Family ended up bringing her to demurs department at [facility] where was seen and evaluated surprisingly found to have mildly elevated troponin with severe electrolyte imbalance with potassium of 2.1 only. Chest x-ray did not show any infection just atelectasis, COVID-19 was negative at the time. Patient was started on gentle hydration will be admitted to the hospital be seen nephrology and vascular, CK with troponin 3 will be done and patient will be seen cardiology further intervention after doing an echocardiogram will depend on the result. 05/26: Patient states that she is feeling better. No complaints or concerns. Plan is for patient to change from peritoneal dialysis to hemodialysis. Consult for nephrology and vascular surgery in place. Patient remains afebrile, heart rate 108, respirations 18, blood pressure 105/71 pulse ox 90% on room air. WC 10.8, hemoglobin 11.3, sodium 133, potassium 3.1, BUN 44, creatinine 5.15. 05/27, patient is currently nothing by mouth, for planned Port-A-Cath placement today, for the transfusion hemodialysis treatment, from a peritoneal dialysis regimen. Patient has dry mouth, no nausea no vomiting, no chest pain no shortness of breath, vitals are stable, 118/64, no fever, T-max of 97.0, heart rate is in the 70s. Pulse ox room air 98% 05/28: Patient is seen today on the cardiac stepdown unit. She is receiving intraperitoneal antibiotics. Patient is receiving regular CAPD managed by nephrology. Nephrology is planning on 2-3 weeks of antibiotic therapy. Tonsils been added for Dr. Doran 8. 05/29: Throughout the night, blood pressure was low down to 68/50, CAPD was held, patient received 500 mL bolus last evening a repeat this morning and we are ordering another 250 ML's now. Blood pressure has recovered somewhat at 90/60. Cortisol level was ordered and patient will be started on hydrocortisone 100 mg IV every 8 hours. Ensure clear and beneprotein added. Sodium was 132, potassium 3.0 will be replaced, BUN 33 creatinine 4.34, blood sugar 107. The plan to transfer patient to ICU but at this point, hold any transfer and continue current treatment. Dr. Randhawa has seen and reviewed patient, blood cultures and inflammatory markers pending. 05/30: Patient is scheduled to have CAPD catheter removed with Dr. Somers and have dialysis by Dr. Navarro. Blood pressures are improved. Hydrocortisone discontinued as cortisol level was at 30. Blood pressure 103/72, afebrile, heart rate in the 60s, pulse ox 100% on room air. 05/31: Patient had CAPD catheter removed and she is scheduled for dialysis catheter placement today with Dr. Navarro. Patient will be continued on hemodialysis with plan for subacute rehab for discharge once chair time has been obtained for dialysis. Patient is afebrile, heart rate 77, blood pressure 95/55, pulse ox 98% on room air. 06/01: Right common femoral approach for hemodialysis access, was placed on 05/[address] Navarro, antibiotic needs to be finalized by Dr. Randhawa, for peritonitis caused by the peritoneal catheter which has been discontinued also on 05/31 2021. Anticipate discharge to subacute rehab on Thursday, brother is at bedside today, updated regarding treatment plan, no fever no chills, patient has been drowsy today, most likely secondary to pain meds, or lack of sleep. Feedings are minimal today, and is being fed by the brother without any difficulties. No fevers, no aspiration 06/02: patient is seen with the family members today, patient's moaning groaning, starting at9:30 at night, and was noted to have changes in mentationpatient cannot verbally verbalize what is going on last night, do not improve with small dose of Dilaudid 0.5 mg to control the femoral pain, CAT scan of the brain was ordered, 9:33 PM, age indeterminate right frontal lobe CVA with no comparison previous CT, there is a focus of patricio white matter differentiation loss within the right frontal lobe, no interparenchymal hemorrhage or mass effect,, concentration for MRI if clinically warranted, 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 Carrion neurology, for whichanother stat CT was placed,aunt 10 AM, there is an area of diminished attenuation with sulcal effacement involving the left frontal parietal lobe suggestive of acute ischemia, diminished attenuation in the high left parietal region, also suspicious for recent ischemia,code stroke was calledpatient is placed on aspirin 81 mg daily, and Plavix 75 mg daily. However patient cannot take any oral medications at this time, we started aspirin suppository, 1025 mg, until oral route is established. Discussed this with the mother, there was no plans for a PEG feeding at one time she had similar problems for which she has not eaten for one month, and they have used and a NG-tube or dophoff feeding in past it looks like the femoral cath is only a temporary way of providing dialysis, and possibly would return to peritoneal dialysis once cleared of infection.when seen today, patient cannot follow commands, can move ice, small facial droop right side,and not follow verbal commands, painstimuli was given to elicit a motor response, withdraws on the left, no withdrawal of arms on the right side. There is no localization of painful stimuli, and left lower extremity, no movement or evidence of sensation on the right side.blood cultures, no growth 96 hours,IV access to right femoral catheter, blood pressure 97/62 to 117/73. 06/03: Patient was transferred into the intensive care unit due to hypotension and tachycardia status post 1.5 L fluid bolus with plan to start levophed. The line has been placed by pulmonary medicine. She has been seen by cardiology and echocardiogram was ordered. No sign of atrial fibrillation. Nephrology is planning for hemodialysis today. Ankle myosin level XLIII.3. Cortisol level XXXVI and patient has been started on IV hydrocortisone. She remains unresponsive since Thursday evening and followed by nephrology left cerebral artery infarct. Echocardiogram shows EF 55-60% with borderline concentric left ventricular hypertrophy, mild aortic valve sclerosis, mild mitral calcification. Carotid ultrasound reveals no significant stenosis in the bilateral ICAs. Chest x-ray reveals right-sided catheter. No acute pulmonary process. 06/04: Patient remains in the intensive care unit. She is on levo fed which is trying to be weaned down. She is NG tube in place to start tube feedings. She received hemodialysis yesterday and none today. Patient is followed by neurology and is scheduled for EEG today. Patient is followed by multiple consultants. Vascular will be placing a PICC line. Patient is followed by offshore wind turbine technician, Dr. Somers , cardiology, as well. Patient is continued on IV antibiotics in the form of Zosyn and vancomycin managed by Dr. Randhawa. REVIEW OF SYSTEMS Able to obtain due to mental status changes. PHYSICAL EXAMINATION Gen: This is a 56-year-old obese female resting in the ICU bed, well- developed does not look in any respiratory distress. HEENT: Head is atraumatic, normocephalic. Pupils equal, round. Sclerae is anicteric. NECK: Supple. No JVD. No lymphadenopathy. No thyromegaly. LUNGS: decreased breath some bilaterally with rhonchi no crackles or wheezes. HEART: Regular rate and rhythm. No murmur. ABDOMEN: Soft. Bowel sounds are present. CAPD catheter was removed. EXTREMITIES: No pedal edema. No calf tenderness. scar on the left knee from previous surgery. NEUROLOGICAL: Patient is sleeping, does not arouse to verbal stimuli. ASSESSMENT AND PLAN 1. Metabolic encephalopathy secondary to PD catheter-associated peritonitis. Patient continued on Zosyn and vancomycin, pharmacy dosing, consult with Dr. Randhawa appreciated. CAPD catheter removed 05/31 [address] Navarro will place dialysis cathete 2021 2. 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 Neurology is following, aspirin and Plavix as recommended. Patient started on NG tube feedings. Elevated troponin and possible non-ST WI: CK with troponin 3 will be done, consult cardiology echocardiogram will be done based on the results decide on further management including if needed to do any intervention. End-stage renal disease on CAPD currently patient apparently been tried to switch to hemodialysis consult nephrology switched to hemodialysis. Hypertension: Now hypotensive with septic shock requiring vasopressor, weaning vasopressor today. Hypothyroidism: Continue patient on levothyroxine 112 g daily. Hyperlipidemia: Has been on atorvastatin 10 mg a day. Chronic gout: Patient has been on Zyloprim 100 mg daily. Electrolyte imbalance with severe hypokalemia as well as replacement. Chronic anemia of chronic renal disease. Continue Aranesp. Infected left knee post surgery patient left knee is non-ambulatory. Severe dehydration Septic shock it is post multiple fluid boluses, medicine intensive care unit. GI prophylaxis: Patient be on Protonix. DVT prophylaxis: Knee-high ANDRE hose and Venodyne boots if needed subcu heparin will be done. COVID-19 testing.was negative. Prognosis is guarded Discharge plan:subacute rehab at [facility] Impression and plan of care have been directed as dictated by the signing physician. Kianna Don nurse practitioner acting as scribe for signing physician. Objective - Vital Signs Vital signs: Vital Signs Temp 96.7 F L 06/04/21 08:00 Pulse 47 L 06/04/21 12:00 Resp 7 L 06/04/21 12:00 BP 111/60 06/04/21 12:00 Pulse Ox 100 06/04/21 12:00 Intake & Output 06/03/21 06/04/21 06/04/21 18:59 06:59 18:59 Intake Total 3036.155 1320.875 524.855 Output Total 800 0 0 Balance 2236.155 1320.875 524.855 Weight 77 kg 85.8 kg 85.4 kg Intake: IV 3 0.9NS Pressure BAg 3 Intake, IV Titration 3036.155 1320.875 436.855 Amount Dextrose 5%-0.9% NaCl 1, 600 1200 350 000 ml @ 50 mls/hr IV . Q20H KAYLIN Rx#:[id number] Norepinephrine 32 mg In 20.875 86.855 Sodium Chloride 0.9% 218 ml @ 0.05 MCG/KG/MIN 1. 805 mls/hr IV .Q24H KAYLIN Rx#:[id number] Norepinephrine 4 mg In 336.155 Sodium Chloride 0.9% 250 ml @ 0.05 MCG/KG/MIN 14. 669 mls/hr IV .[id number] KAYLIN Rx#:[id number] Piperacillin-Tazobactam 3 100 .375 gm In Sodium Chloride 0.9% 100 ml @ 25 mls/hr IVPB Q8H KAYLIN Rx#: [id number] Potassium Chloride 20 meq 100 In Water For Injection 1 100ml.bag @ 50 mls/hr IVPB ONCE STA Rx#: [id number] Sodium Chloride 0.9% 2, 2000 000 ml @ 999 mls/hr IV . Q2H1M ONE Rx#:[id number] Oral 0 Tube Feeding 85 Output: Urine 0 0 0 Stool 0 Other 800 Other: Voiding Method Diaper Diaper Diaper Incontinent Incontinent Incontinent # Voids 0 ABP, PAP, CO, CI - Last Documented Arterial Blood Pressure 127/49 - Labs CBC & Chem 7: 06/04/21 03:20 06/04/21 03:20 Labs: Abnormal Lab Results - Last 24 Hours (Table) 06/03/21 06/03/21 06/04/21 Range/Units 11:30 11:30 03:20 WBC (3.8-10.6) k/uL RBC (3.80-5.40) m/uL Hgb (11.4-16.0) gm/dL Hct (34.0-46.0) % MCV (80.0-100.0) fL RDW (11.5-15.5) % Plt Count (150-450) k/uL Potassium 3.2 L (3.5-5.1) mmol/L Chloride 116 H 116 H (98-107) mmol/L Carbon Dioxide 19 L 21 L (22-30) mmol/L BUN 22 H (7-17) mg/dL Creatinine 4.23 H 2.60 H (0.52-1.04) mg/dL Glucose 123 H 201 H (74-99) mg/dL Calcium 7.7 L 7.9 L (8.4-10.2) mg/dL HDL Cholesterol 36.20 L (40.00-60.00) mg/dL 06/04/21 Range/Units 03:20 WBC 28.4 H (3.8-10.6) k/uL RBC 2.84 L (3.80-5.40) m/uL Hgb 9.2 L (11.4-16.0) gm/dL Hct 29.6 L (34.0-46.0) % MCV 104.3 H (80.0-100.0) fL RDW 17.4 H (11.5-15.5) % Plt Count 78 L (150-450) k/uL Potassium (3.5-5.1) mmol/L Chloride (98-107) mmol/L Carbon Dioxide (22-30) mmol/L BUN (7-17) mg/dL Creatinine (0.52-1.04) mg/dL Glucose (74-99) mg/dL Calcium (8.4-10.2) mg/dL HDL Cholesterol (40.00-60.00) mg/dL Microbiology - Last 24 Hours (Table) 05/28/21 12:57 Blood Culture - Final Blood No Growth after 144 hours
--- NOTE | 2021-06-04 14:40 | P.PN ---
Subjective Progress Note Date: 06/04/21 The patient was in and examined. She was transferred to the ICU yesterday. Central line was started yesterday the ICU. No acute changes through the night, still remains relatively hypotensive. She was started on norepinephrine. She did undergo hemodialysis yesterday. Patient still has had some altered mental status changes and is lethargic. Vascular surgery is on consult for IV placement on the ICU, started central line they are requesting more permanent access as there is increase risk for infection. Patient is currently being treated for positive bacteremia secondary to enterococcus faecalis. Objective - Vital Signs Vital signs: Vital Signs Temp 96.7 F L 06/04/21 08:00 Pulse 44 L 06/04/21 08:30 Resp 18 06/04/21 08:30 BP 114/78 06/04/21 08:30 Pulse Ox 100 06/04/21 08:30 Intake & Output 06/03/21 06/04/21 06/04/21 18:59 06:59 18:59 Intake Total 3036.155 1320.875 200 Output Total 800 0 0 Balance 2236.155 1320.875 200 Weight 77 kg 85.8 kg Intake: Intake, IV Titration 3036.155 1320.875 200 Amount Dextrose 5%-0.9% NaCl 1, 600 1200 200 000 ml @ 100 mls/hr IV . Q10H KAYLIN Rx#:[id number] Norepinephrine 32 mg In 20.875 Sodium Chloride 0.9% 218 ml @ 0.05 MCG/KG/MIN 1. 805 mls/hr IV .Q24H KAYLIN Rx#:[id number] Norepinephrine 4 mg In 336.155 Sodium Chloride 0.9% 250 ml @ 0.05 MCG/KG/MIN 14. 669 mls/hr IV .[id number] KAYLIN Rx#:[id number] Piperacillin-Tazobactam 3 100 .375 gm In Sodium Chloride 0.9% 100 ml @ 25 mls/hr IVPB Q8H KAYLIN Rx#: [id number] Potassium Chloride 20 meq 100 In Water For Injection 1 100ml.bag @ 50 mls/hr IVPB ONCE STA Rx#: [id number] Sodium Chloride 0.9% 2, 2000 000 ml @ 999 mls/hr IV . Q2H1M ONE Rx#:[id number] Oral 0 Output: Urine 0 0 0 Stool 0 Other 800 Other: Voiding Method Diaper Diaper Diaper Incontinent Incontinent Incontinent # Voids 0 ABP, PAP, CO, CI - Last Documented Arterial Blood Pressure 107/44 - Exam General appearance: The patient is an lethargic, and appear in any acute di stress. HET: Head is normocephalic and atraumatic. Pupils are equal and reactive. Oropharynx is clear without lesions. Neck: Supple without lymphadenopathy. Trachea midline. Heart: S1 S2. Regular rate and rhythm. Lungs: No crackles or wheezes are heard. Abdomen: Soft, nontender, nondistended. Extremities: Normal skin color and turgor. Bilateral lower extremity edema. Neurological: Lethargic, nonverbal and not answering questions or following commands. - Labs CBC & Chem 7: 06/04/21 03:20 06/04/21 03:20 Labs: Abnormal Lab Results - Last 24 Hours (Table) 06/03/21 06/03/21 06/04/21 Range/Units 11:30 11:30 03:20 WBC (3.8-10.6) k/uL RBC (3.80-5.40) m/uL Hgb (11.4-16.0) gm/dL Hct (34.0-46.0) % MCV (80.0-100.0) fL RDW (11.5-15.5) % Plt Count (150-450) k/uL Potassium 3.2 L (3.5-5.1) mmol/L Chloride 116 H 116 H (98-107) mmol/L Carbon Dioxide 19 L 21 L (22-30) mmol/L BUN 22 H (7-17) mg/dL Creatinine 4.23 H 2.60 H (0.52-1.04) mg/dL Glucose 123 H 201 H (74-99) mg/dL Calcium 7.7 L 7.9 L (8.4-10.2) mg/dL HDL Cholesterol 36.20 L (40.00-60.00) mg/dL 06/04/21 Range/Units 03:20 WBC 28.4 H (3.8-10.6) k/uL RBC 2.84 L (3.80-5.40) m/uL Hgb 9.2 L (11.4-16.0) gm/dL Hct 29.6 L (34.0-46.0) % MCV 104.3 H (80.0-100.0) fL RDW 17.4 H (11.5-15.5) % Plt Count 78 L (150-450) k/uL Potassium (3.5-5.1) mmol/L Chloride (98-107) mmol/L Carbon Dioxide (22-30) mmol/L BUN (7-17) mg/dL Creatinine (0.52-1.04) mg/dL Glucose (74-99) mg/dL Calcium (8.4-10.2) mg/dL HDL Cholesterol (40.00-60.00) mg/dL Microbiology - Last 24 Hours (Table) 05/28/21 12:57 Blood Culture - Final Blood No Growth after 144 hours Assessment and Plan Assessment: 1. Metabolic encephalopathy secondary to peritoneal catheter associated infection is post removal of peritoneal dialysis catheter 2. End-stage renal disease on hemodialysis 3. Acute right frontoparietal CVA with right facial droop, right hemiplegia with aphasia Plan: 1. Continue symptomatic and supportive care 2. Continue current antibiotics per recommendations from infectious disease 3. Patient scheduled for tunneled PICC line placement tomorrow 4. Nothing by mouth after midnight The impression and plan of care has been dictated as directed. Dr. Hansen I performed a history and examination of this patient, discussed the same with the dictator. I agree with the dictator's note ,documented as a scribe. Any additional findings or plans will be noted.
[2021-06-04 18:08] LABS: Glucose,Whole Blood 172 mg/dL (75-99)
[2021-06-04 18:12] LABS: % Iron Saturation 52.85 (12.00-45.00)
--- NOTE | 2021-06-04 18:21 | EEG ---
ELECTROENCEPHALOGRAM REPORT DATE OF SERVICE: 06/04/2021. CLINICAL HISTORY: This is a 56-year-old woman with a history of acute left temporoparietal stroke who has altered mental status. The video EEG is obtained to evaluate for seizure epileptiform activity. RELEVANT MEDICATIONS: The patient is not on any antiepileptic drugs. EEG TYPE: A routine 21-channel EEG is performed with video using the 10/20 electrode placement system. DESCRIPTION: Awake state is only obtained. During awake state, the background consists of moderate voltage of 4.5 to 5.5 hertz theta activity that is nonrhythmic, and occasionally the background consists of diffuse nonrhythmic delta activity. There is no physiological stage II sleep. There is no focal slowing. There is a moderate amount of diffuse myogenic artifact. Interictal and ictal is none. ACTIVATION PROCEDURE: Photic stimulation and hyperventilation are not performed. CLINICAL INTERPRETATION: This is an abnormal routine EEG. The background slowing is suggestive of moderate to severe encephalopathy. There is no focal slowing, epileptiform discharge or seizure on the EEG. Clinical correlation is recommended. MMROBBY / IBRAHIMA: [id number] / [email or web address]
[2021-06-04] MEDS: INSULIN ASPART (NovoLOG) 100 UNIT/ML VIAL SQ SCH ×2 (18:25→23:52)
[2021-06-04] MEDS: NOREPINEPHRINE 32 MG in SODIUM CHLORIDE 0.9% 218 ML IV SCH (19:48)
[2021-06-04] MEDS: SERTRALINE 25 MG TAB PO SCH (21:36)
[2021-06-04] MEDS: ATORVASTATIN 10 MG TAB PO SCH (21:36)
--- NOTE | 2021-06-04 22:31 | P.PN ---
Subjective Progress Note Date: 06/03/21 Principal diagnosis: PD cath associated peritonitis Enterococcus faecalis and staph epi Patient is a 56 female admitted to the hospital with nausea vomiting abdominal pain this patient noticed to have purulent peritoneal fluid and was diagnosed with the cath associated peritonitis in this patient who is status post removal of the peritoneal dialysis catheter and insertion of hemodialysis catheter. On today's evaluation that is 06/03/2021, the patient had been transferred to the ICU because of worsening mental status changes and concern for CVA, patient is currently lethargic and moaning and did not answer questions no vomiting or diarrhea reported by the nursing staff Objective - Vital Signs Vital signs: Vital Signs Temp 97.5 F L 06/04/21 20:00 Pulse 114 H 06/04/21 22:00 Resp 14 06/04/21 22:00 BP 96/64 06/04/21 22:00 Pulse Ox 100 06/04/21 22:00 Intake & Output 06/04/21 06/04/21 06/05/21 06:59 18:59 06:59 Intake Total 3225.155 3910.187 240.395 Output Total 0 0 0 Balance 6988.686 7461.187 240.395 Weight 85.8 kg 85.4 kg Intake: IV 277 159 0.9NS Pressure BAg 27 9 D5.9 NACL @50ML/HR 250 150 Intake, IV Titration 1320.875 724.187 7.395 Amount Dextrose 5%-0.9% NaCl 1, 1200 500 000 ml @ 50 mls/hr IV . Q20H KAYLIN Rx#:[id number] Norepinephrine 32 mg In 20.875 124.187 7.395 Sodium Chloride 0.9% 218 ml @ 0.05 MCG/KG/MIN 1. 805 mls/hr IV .Q24H KAYLIN Rx#:[id number] Piperacillin-Tazobactam 3 100 .375 gm In Sodium Chloride 0.9% 100 ml @ 25 mls/hr IVPB Q12H KAYLIN Rx# :[id number] Potassium Chloride 20 meq 100 In Water For Injection 1 100ml.bag @ 50 mls/hr IVPB ONCE STA Rx#: [id number] Oral 10 Tube Feeding 125 44 Other 80 30 Output: Urine 0 0 0 Stool 0 Other: Voiding Method Diaper Diaper Diaper Incontinent Incontinent Incontinent # Voids 0 ABP, PAP, CO, CI - Last Documented Arterial Blood Pressure 86/51 - Exam General description is a middle-aged female lying in bed in no distress. Respiratory system: Unlabored breathing, decreased intensity of breath sounds, no wheeze. Heart S1, S2.Regular rate and rhythm. Abdomen soft, no tenderness. No guarding or rigidity - Labs CBC & Chem 7: 06/04/21 03:20 06/04/21 03:20 Labs: Abnormal Lab Results - Last 24 Hours (Table) 06/04/21 06/04/21 06/04/21 Range/Units 03:20 03:20 03:20 WBC 28.4 H (3.8-10.6) k/uL RBC 2.84 L (3.80-5.40) m/uL Hgb 9.2 L (11.4-16.0) gm/dL Hct 29.6 L (34.0-46.0) % MCV 104.3 H (80.0-100.0) fL RDW 17.4 H (11.5-15.5) % Plt Count 78 L (150-450) k/uL Chloride 116 H (98-107) mmol/L Carbon Dioxide 21 L (22-30) mmol/L Creatinine 2.60 H (0.52-1.04) mg/dL Glucose 201 H (74-99) mg/dL POC Glucose (mg/dL) (75-99) mg/dL Plasma Lactic Acid David (0.7-2.0) mmol/L Calcium 7.9 L (8.4-10.2) mg/dL Iron 40 L (50-170) ug/dL TIBC 76 L (228-460) ug/dL % Saturation 52.85 H (12.00-45.00) Transferrin 54.6 L (204.0-354.0) mg/dL Ferritin 2966.0 H (10.0-291.0) ng/mL 06/04/21 06/04/21 Range/Units 12:15 18:06 WBC (3.8-10.6) k/uL RBC (3.80-5.40) m/uL Hgb (11.4-16.0) gm/dL Hct (34.0-46.0) % MCV (80.0-100.0) fL RDW (11.5-15.5) % Plt Count (150-450) k/uL Chloride (98-107) mmol/L Carbon Dioxide (22-30) mmol/L Creatinine (0.52-1.04) mg/dL Glucose (74-99) mg/dL POC Glucose (mg/dL) 172 H (75-99) mg/dL Plasma Lactic Acid David 3.7 H* (0.7-2.0) mmol/L Calcium (8.4-10.2) mg/dL Iron (50-170) ug/dL TIBC (228-460) ug/dL % Saturation (12.00-45.00) Transferrin (204.0-354.0) mg/dL Ferritin (10.0-291.0) ng/mL Microbiology - Last 24 Hours (Table) 06/03/21 11:30 Blood Culture - Preliminary Blood No Growth after 24 hours Assessment and Plan Assessment: 1-patient with a PD catheter associated peritonitis in this patient was status post removal of the infected dialysis catheter culture positive for Enterococcus faecalis and staph epi blood culture negative patient is currently covered with vancomycin pharmacy to dose to continue and monitor clinical course closely Time with Patient: Less than 30
--- NOTE | 2021-06-04 22:33 | P.PN ---
Subjective Progress Note Date: 06/04/21 Principal diagnosis: PD cath associated peritonitis Enterococcus faecalis and staph epi Interval history : Patient is a 56 female admitted to the hospital with nausea vomiting abdominal pain this patient noticed to have purulent peritoneal fluid and was diagnosed with the cath associated peritonitis in this patient who is status post removal of the peritoneal dialysis catheter and insertion of hemodialysis catheter. Patient was moved to the ICU on 06/03/2021 for worsening mental status changes On today's evaluation that is 06/04/2021, the patient remains to be febrile, patient is lethargic and moaning and did not answer questions no vomiting or diarrhea reported by the nursing staff Objective - Vital Signs Vital signs: Vital Signs Temp 97.5 F L 06/04/21 20:00 Pulse 114 H 06/04/21 22:00 Resp 14 06/04/21 22:00 BP 96/64 06/04/21 22:00 Pulse Ox 100 06/04/21 22:00 Intake & Output 06/04/21 06/04/21 06/05/21 06:59 18:59 06:59 Intake Total 0295.531 5516.187 240.395 Output Total 0 0 0 Balance 5515.890 2440.187 240.395 Weight 85.8 kg 85.4 kg Intake: IV 277 159 0.9NS Pressure BAg 27 9 D5.9 NACL @50ML/HR 250 150 Intake, IV Titration 1320.875 724.187 7.395 Amount Dextrose 5%-0.9% NaCl 1, 1200 500 000 ml @ 50 mls/hr IV . Q20H [facility] Rx#:[id number] Norepinephrine 32 mg In 20.875 124.187 7.395 Sodium Chloride 0.9% 218 ml @ 0.05 MCG/KG/MIN 1. 805 mls/hr IV .Q24H [facility] Rx#:[id number] Piperacillin-Tazobactam 3 100 .375 gm In Sodium Chloride 0.9% 100 ml @ 25 mls/hr IVPB Q12H [facility] Rx# :[id number] Potassium Chloride 20 meq 100 In Water For Injection 1 100ml.bag @ 50 mls/hr IVPB ONCE [facility] Rx#: [id number] Oral 10 Tube Feeding 125 44 Other 80 30 Output: Urine 0 0 0 Stool 0 Other: Voiding Method Diaper Diaper Diaper Incontinent Incontinent Incontinent # Voids 0 ABP, PAP, CO, CI - Last Documented Arterial Blood Pressure 86/51 - Exam General description is a middle-aged female lying in bed in no distress. Respiratory system: Unlabored breathing, decreased intensity of breath sounds, no wheeze. Heart S1, S2.Regular rate and rhythm. Abdomen soft, no tenderness. No guarding or rigidity - Labs CBC & Chem 7: 06/04/21 03:20 06/04/21 03:20 Labs: Abnormal Lab Results - Last 24 Hours (Table) 06/04/21 06/04/21 06/04/21 Range/Units 03:20 03:20 03:20 WBC 28.4 H (3.8-10.6) k/uL RBC 2.84 L (3.80-5.40) m/uL Hgb 9.2 L (11.4-16.0) gm/dL Hct 29.6 L (34.0-46.0) % MCV 104.3 H (80.0-100.0) fL RDW 17.4 H (11.5-15.5) % Plt Count 78 L (150-450) k/uL Chloride 116 H (98-107) mmol/L Carbon Dioxide 21 L (22-30) mmol/L Creatinine 2.60 H (0.52-1.04) mg/dL Glucose 201 H (74-99) mg/dL POC Glucose (mg/dL) (75-99) mg/dL Plasma Lactic Acid David (0.7-2.0) mmol/L Calcium 7.9 L (8.4-10.2) mg/dL Iron 40 L (50-170) ug/dL TIBC 76 L (228-460) ug/dL % Saturation 52.85 H (12.00-45.00) Transferrin 54.6 L (204.0-354.0) mg/dL Ferritin 2966.0 H (10.0-291.0) ng/mL 06/04/21 06/04/21 Range/Units 12:15 18:06 WBC (3.8-10.6) k/uL RBC (3.80-5.40) m/uL Hgb (11.4-16.0) gm/dL Hct (34.0-46.0) % MCV (80.0-100.0) fL RDW (11.5-15.5) % Plt Count (150-450) k/uL Chloride (98-107) mmol/L Carbon Dioxide (22-30) mmol/L Creatinine (0.52-1.04) mg/dL Glucose (74-99) mg/dL POC Glucose (mg/dL) 172 H (75-99) mg/dL Plasma Lactic Acid David 3.7 H* (0.7-2.0) mmol/L Calcium (8.4-10.2) mg/dL Iron (50-170) ug/dL TIBC (228-460) ug/dL % Saturation (12.00-45.00) Transferrin (204.0-354.0) mg/dL Ferritin (10.0-291.0) ng/mL Microbiology - Last 24 Hours (Table) 06/03/21 11:30 Blood Culture - Preliminary Blood No Growth after 24 hours Assessment and Plan Assessment: 1-patient with a PD catheter associated peritonitis in this patient was status post removal of the infected dialysis catheter culture positive for Enterococcus faecalis and staph epi blood culture negative patient is currently covered with vancomycin pharmacy to dose to continue 2-patient with worsening of the white count question of aspiration pneumonitis. We'll recheck her inflammatory markers and pro-calcitonin continue with empiric Zosyn Time with Patient: Less than 30
[2021-06-04 23:50] LABS: Glucose,Whole Blood 120 mg/dL (75-99)
[2021-06-05 03:02] LABS: Anisocytosis Slight; HCT 27.4 % (34.0-46.0); HGB 8.3 gm/dL (11.4-16.0); Hypochromasia Marked; MCH 32.3 pg (25.0-35.0); MCHC 30.5 g/dL (31.0-37.0); MCV 105.8 fL (80.0-100.0); Macrocytosis Marked; Mean Platelet Volume 14.3; RBC 2.59 m/uL (3.80-5.40); RDW 17.6 % (11.5-15.5); WBC 24.7 k/uL (3.8-10.6)
[2021-06-05] MEDS: PIPERACILLIN-TAZOBACTAM 3.375 GM in SODIUM CHLORIDE 0.9% 100 ML IVPB SCH ×2 (03:08→15:47)
[2021-06-05 03:17] LABS: Platelet Count 75 k/uL (150-450)
[2021-06-05 03:25] LABS: C Reactive Protein 3.1 mg/dL (<1.0); Magnesium 1.9 mg/dL (1.6-2.3); Phosphorus 2.7 mg/dL (2.5-4.5); Potassium 3.4 mmol/L (3.5-5.1)
[2021-06-05 05:54] LABS: Glucose,Whole Blood 137 mg/dL (75-99)
[2021-06-05] MEDS: PANTOPRAZOLE 40 MG TABLET PO SCH (05:58)
[2021-06-05] MEDS: MIDODRINE 5 MG TAB PO SCH ×3 (05:59→17:23)
[2021-06-05] MEDS: INSULIN ASPART (NovoLOG) 100 UNIT/ML VIAL SQ SCH ×4 (06:00→23:33)
[2021-06-05] MEDS ORDERED: POTASSIUM CHLORIDE ER 20 MEQ TAB.ER PO STA (06:23)
[2021-06-05] MEDS: FOLIC ACID-VIT B COMPLEX-VIT C 1 CAP PO SCH (08:34)
--- NOTE | 2021-06-05 08:35 | P.PN ---
Subjective Patient is seen in follow-up for end-stage renal disease. She is maintained hemodialysis. PD catheter was removed due to resistant peritonitis. Receiving IV fluids. Also on Levophed. Blood pressure on lower side. Vital signs - on vasopressor support. HEENT: Head exam is unremarkable. NGT noted. LUNGS: Breath sounds decreased. HEART: Rate and Rhythm are regular. ABDOMEN: Soft, no distention. EXTREMITITES: Trace edema. Objective - Vital Signs Vital signs: Vital Signs Temp 97.5 F L 06/05/21 04:00 Pulse 96 06/05/21 07:00 Resp 12 06/05/21 07:00 BP 75/50 06/05/21 07:00 Pulse Ox 100 06/05/21 07:00 Intake & Output 06/04/21 06/05/21 06/05/21 18:59 06:59 18:59 Intake Total 1216.187 782.630 70 Output Total 0 0 0 Balance 1216.187 782.630 70 Weight 85.4 kg 86.3 kg Intake: IV 277 530 53 0.9NS Pressure BAg 27 30 3 D5.9 NACL @50ML/HR 250 500 50 Intake, IV Titration 724.187 16.630 0 Amount Dextrose 5%-0.9% NaCl 1, 500 000 ml @ 50 mls/hr IV . Q20H [facility] Rx#:[id number] Norepinephrine 32 mg In 124.187 16.630 0 Sodium Chloride 0.9% 218 ml @ 0.05 MCG/KG/MIN 1. 805 mls/hr IV .Q24H [facility] Rx#:[id number] Piperacillin-Tazobactam 3 100 .375 gm In Sodium Chloride 0.9% 100 ml @ 25 mls/hr IVPB Q12H [facility] Rx# :[id number] Oral 10 Tube Feeding 125 146 17 Other 80 90 Output: Urine 0 0 0 Stool 0 Other: Voiding Method Diaper Diaper Incontinent Incontinent # Voids 0 ABP, PAP, CO, CI - Last Documented Arterial Blood Pressure 86/48 - Labs CBC & Chem 7: 06/05/21 02:35 06/05/21 02:35 Labs: Abnormal Lab Results - Last 24 Hours (Table) 06/04/21 06/04/21 06/04/21 Range/Units 03:20 12:15 18:06 WBC (3.8-10.6) k/uL RBC (3.80-5.40) m/uL Hgb (11.4-16.0) gm/dL Hct (34.0-46.0) % MCV (80.0-100.0) fL MCHC (31.0-37.0) g/dL RDW (11.5-15.5) % Plt Count (150-450) k/uL Macrocytosis Potassium (3.5-5.1) mmol/L Creatinine (0.52-1.04) mg/dL POC Glucose (mg/dL) 172 H (75-99) mg/dL Plasma Lactic Acid David 3.7 H* (0.7-2.0) mmol/L Iron 40 L (50-170) ug/dL TIBC 76 L (228-460) ug/dL % Saturation 52.85 H (12.00-45.00) Transferrin 54.6 L (204.0-354.0) mg/dL Ferritin 2966.0 H (10.0-291.0) ng/mL C-Reactive Protein (<1.0) mg/dL 06/04/21 06/05/21 06/05/21 Range/Units 23:49 02:35 02:35 WBC 24.7 H (3.8-10.6) k/uL RBC 2.59 L (3.80-5.40) m/uL Hgb 8.3 L (11.4-16.0) gm/dL Hct 27.4 L (34.0-46.0) % MCV 105.8 H (80.0-100.0) fL MCHC 30.5 L (31.0-37.0) g/dL RDW 17.6 H (11.5-15.5) % Plt Count 75 L (150-450) k/uL Macrocytosis Marked A Potassium 3.4 L (3.5-5.1) mmol/L Creatinine 2.96 H (0.52-1.04) mg/dL POC Glucose (mg/dL) 120 H (75-99) mg/dL Plasma Lactic Acid David (0.7-2.0) mmol/L Iron (50-170) ug/dL TIBC (228-460) ug/dL % Saturation (12.00-45.00) Transferrin (204.0-354.0) mg/dL Ferritin (10.0-291.0) ng/mL C-Reactive Protein 3.1 H (<1.0) mg/dL 06/05/21 Range/Units 05:52 WBC (3.8-10.6) k/uL RBC (3.80-5.40) m/uL Hgb (11.4-16.0) gm/dL Hct (34.0-46.0) % MCV (80.0-100.0) fL MCHC (31.0-37.0) g/dL RDW (11.5-15.5) % Plt Count (150-450) k/uL Macrocytosis Potassium (3.5-5.1) mmol/L Creatinine (0.52-1.04) mg/dL POC Glucose (mg/dL) 137 H (75-99) mg/dL Plasma Lactic Acid David (0.7-2.0) mmol/L Iron (50-170) ug/dL TIBC (228-460) ug/dL % Saturation (12.00-45.00) Transferrin (204.0-354.0) mg/dL Ferritin (10.0-291.0) ng/mL C-Reactive Protein (<1.0) mg/dL Microbiology - Last 24 Hours (Table) 06/03/21 11:30 Blood Culture - Preliminary Blood No Growth after 24 hours Assessment and Plan Plan: Assessment: 1. End-stage renal disease maintained on hemodialysis. 2. Hypokalemia from poor intake and PD losses. Replaced. 3. Hypotension due to sepsis. On midodrine. Also on Levophed and IV steroids. Cortisol level not low. 4. Chronic kidney disease mineral bone disease. Phosphorus level 2.7 dated 06/04/2021. 5. PD associated peritonitis with fluid culture positive for group D enterococcus. PD catheter removed 05/30/21. On IV antibiotics. Infectious disease following. 6. Anemia of chronic kidney disease. On Aranesp. Iron replete. Plan: Hemodialysis today. Wean Levophed. Maintain normal saline at 50 mL an hour. EF preserved.
[2021-06-05] MEDS: FAMOTIDINE 20 MG TAB PO SCH (08:38)
[2021-06-05] MEDS: CLOPIDOGREL 75 MG TAB PO SCH (08:38)
[2021-06-05] MEDS: allopurinoL 100 MG TAB PO SCH (08:38)
[2021-06-05] MEDS: MAGNESIUM OXIDE 400 MG TAB PO SCH (08:38)
[2021-06-05] MEDS: ASPIRIN 300 MG SUPP RECTAL SCH (08:39)
--- NOTE | 2021-06-05 10:08 | P.PN ---
Subjective Progress Note Date: 06/05/21 The patient is seen at bedside and her condition is about the same per the nurse. She continues to moan and not responding or following commands. She is getting dialysis today and her systolic blood pressure during dialysis is in the 80's. Objective - Vital Signs Vital signs: Vital Signs Temp 97.5 F L 06/05/21 04:00 Pulse 96 06/05/21 07:00 Resp 12 06/05/21 07:00 BP 75/50 06/05/21 07:00 Pulse Ox 100 06/05/21 07:00 Intake & Output 06/04/21 06/05/21 06/05/21 18:59 06:59 18:59 Intake Total 1216.187 782.630 70 Output Total 0 0 0 Balance 1216.187 782.630 70 Weight 85.4 kg 86.3 kg Intake: IV 277 530 53 0.9NS Pressure BAg 27 30 3 D5.9 NACL @50ML/HR 250 500 50 Intake, IV Titration 724.187 16.630 0 Amount Dextrose 5%-0.9% NaCl 1, 500 000 ml @ 50 mls/hr IV . Q20H [facility] Rx#:[id number] Norepinephrine 32 mg In 124.187 16.630 0 Sodium Chloride 0.9% 218 ml @ 0.05 MCG/KG/MIN 1. 805 mls/hr IV .Q24H [facility] Rx#:[id number] Piperacillin-Tazobactam 3 100 .375 gm In Sodium Chloride 0.9% 100 ml @ 25 mls/hr IVPB Q12H [facility] Rx# :[id number] Oral 10 Tube Feeding 125 146 17 Other 80 90 Output: Urine 0 0 0 Stool 0 Other: Voiding Method Diaper Diaper Incontinent Incontinent # Voids 0 ABP, PAP, CO, CI - Last Documented Arterial Blood Pressure 86/48 - Exam GENERAL: The patient is lying in bed and is moaning. She does not appear in distress. NEUROLOGICAL: Limited because of her condition. Higher mental function: The patient is comatose but would open her eye to verbal stimuli. She is not following commands or verbalizing. She is only moaning. Cranial nerves: The pupils are round, equal and sluggishly reactive to light. Primary gaze is looking downward or to the right. Has mild right facial weakness. Otherwise could not assess rest of cranial nerves. Motor: The strength could not assess. No jerking of any extremities. But has brief tremor over the left hand. Cerebellum: Could not assess. Sensation: Could not assess light touch. WORK-UP: [place] virus PCR was not detected. Ammonia level <9 Lipid panel is triglyceride of 137, cholesterol 105, LDL is 41 and HDL is 36. CT scan of the brain ON 06/02/21 reveals evidence of a left temporoparietal acute infarct. Carotid duplex was reported as no significant stenosis of bilateral ICA. Minimal elevated right ICA systolic velocity. 2-D echo was reported as overlying concentric left ventricular hypertrophy. Ejection fraction of 55-60%. Left atrial size is normal Routine EEG on 06/04/21 is abnormal. The background slowing suggestive of moderate to severe encephalopathy. There is no focal slowing, epileptiform discharges or seizure on the EEG. - Labs CBC & Chem 7: 06/05/21 02:35 06/05/21 14:41 Labs: Abnormal Lab Results - Last 24 Hours (Table) 06/04/21 06/04/21 06/04/21 Range/Units 03:20 12:15 18:06 WBC (3.8-10.6) k/uL RBC (3.80-5.40) m/uL Hgb (11.4-16.0) gm/dL Hct (34.0-46.0) % MCV (80.0-100.0) fL MCHC (31.0-37.0) g/dL RDW (11.5-15.5) % Plt Count (150-450) k/uL Macrocytosis Potassium (3.5-5.1) mmol/L Creatinine (0.52-1.04) mg/dL POC Glucose (mg/dL) 172 H (75-99) mg/dL Plasma Lactic Acid David 3.7 H* (0.7-2.0) mmol/L Iron 40 L (50-170) ug/dL TIBC 76 L (228-460) ug/dL % Saturation 52.85 H (12.00-45.00) Transferrin 54.6 L (204.0-354.0) mg/dL Ferritin 2966.0 H (10.0-291.0) ng/mL C-Reactive Protein (<1.0) mg/dL 06/04/21 06/05/2106/05/22 Range/Units 23:49 02:35 02:35 WBC 24.7 H (3.8-10.6) k/uL RBC 2.59 L (3.80-5.40) m/uL Hgb 8.3 L (11.4-16.0) gm/dL Hct 27.4 L (34.0-46.0) % MCV 105.8 H (80.0-100.0) fL MCHC 30.5 L (31.0-37.0) g/dL RDW 17.6 H (11.5-15.5) % Plt Count 75 L (150-450) k/uL Macrocytosis Marked A Potassium 3.4 L (3.5-5.1) mmol/L Creatinine 2.96 H (0.52-1.04) mg/dL POC Glucose (mg/dL) 120 H (75-99) mg/dL Plasma Lactic Acid David (0.7-2.0) mmol/L Iron (50-170) ug/dL TIBC (228-460) ug/dL % Saturation (12.00-45.00) Transferrin (204.0-354.0) mg/dL Ferritin (10.0-291.0) ng/mL C-Reactive Protein 3.1 H (<1.0) mg/dL 06/05/21 Range/Units 05:52 WBC (3.8-10.6) k/uL RBC (3.80-5.40) m/uL Hgb (11.4-16.0) gm/dL Hct (34.0-46.0) % MCV (80.0-100.0) fL MCHC (31.0-37.0) g/dL RDW (11.5-15.5) % Plt Count (150-450) k/uL Macrocytosis Potassium (3.5-5.1) mmol/L Creatinine (0.52-1.04) mg/dL POC Glucose (mg/dL) 137 H (75-99) mg/dL Plasma Lactic Acid David (0.7-2.0) mmol/L Iron (50-170) ug/dL TIBC (228-460) ug/dL % Saturation (12.00-45.00) Transferrin (204.0-354.0) mg/dL Ferritin (10.0-291.0) ng/mL C-Reactive Protein (<1.0) mg/dL Microbiology - Last 24 Hours (Table) 06/03/21 11:30 Blood Culture - Preliminary Blood No Growth after 24 hours Assessment and Plan Assessment: Altered mental status due to multifactorial: Probable Septic encephalopathy (suspected catheter associated peritonitis) and a component of metabolic encephalopathy Acute ischemic stroke (left temporal parietal. With symptoms of right facial droop and right hemiplegia and aphasia). No IV TPA since outside the window Hypotensive episode today: Likely due to dialysis (systolic in 80's). End-stage renal disease and is on dialysis History of essential hypertension History of hypertension During hospital stay has episode of hypotensive Dyslipidemia History of gout Plan: Ordered repeat CT head w/o to assess if any change. Routine EEG on 06/04/21 is abnormal. The background slowing suggestive of moderate to severe encephalopathy. There is no focal slowing, epileptiform discharges or seizure on the EEG. Patient is on aspirin 300 mg suppository since the patient cannot swallow as well as the has an order of Plavix [address] Carrion. Continue Lipitor 10 mg daily at bedtime Continue neuro checks PT, OT and [employer] are consulted Placed on cardiac monitoring Nephrology is on board. Today patient is getting dialysis. ID team is on board. Please avoid any hypotensive episodes and will defer management to primary and ICU team. We'll defer the rest of medical management to the ICU in the primary team Please avoid any further hypotensive episodes and we'll defer the management to the primary and IC team. Or DVT prophylaxis will defer the decision to the primary and ICU team. Patient has acute thrombocythemia and for now place on SCD. Upon discharge the patient needs to follow-up with a neurologist as outpatient within 1-2 weeks. Condition: Is very guarded. Plan was discussed with the patient's mother (who is at bedside), patient's sister (via phone) and her nurse. Hasmukh Scott M.D. Neuro-Hospitalist. Time with Patient: Less than 30
[2021-06-05 11:38] LABS: Glucose,Whole Blood 92 mg/dL (75-99)
--- NOTE | 2021-06-05 11:59 | P.PN ---
Subjective Progress Note Date: 06/05/21 The patient is a 56-year-old female admitted with dehydration and hypokalemia. Patient has a known history of end-stage renal disease on dialysis, hypertension, dyslipidemia, hypothyroidism. Patient does not follow with a toe former. Patient was seen in the ICU she remains A&O x0, lethargic, and does not follow commands. Patient continues to have moaning and groaning. She is examined resting in bed with no signs of acute distress. Patient continues to be hypotensive and continues on a Levophed drip. She remains tachycardia with a heart rate of 115 likely related to sepsis. Patient is to receive hemodialysis today. She is also to undergo a tunnel PICC cath day. Diagnostics: Vital signs: Blood pressure 91/43, heart rate 125, respirations 18, 100% on 2 L nasal cannula, afebrile Labs reviewedWBC 24.7, hemoglobin 8.3, platelets 75, potassium 3.4, magnesium 1.9, CRP 3.1 Objective - Vital Signs Vital signs: Vital Signs Temp 97.5 F L 06/05/21 08:00 Pulse 125 H 06/05/21 11:00 Resp 18 06/05/21 11:00 BP 91/43 06/05/21 11:00 Pulse Ox 98 06/05/21 11:00 Intake & Output 06/04/21 06/05/21 06/05/21 18:59 06:59 18:59 Intake Total 1216.187 782.630 454.461 Output Total 0 0 0 Balance 1216.187 782.630 454.461 Weight 85.4 kg 86.3 kg 86.3 kg Intake: IV 277 530 265 0.9NS Pressure BAg 27 30 15 D5.9 NACL @50ML/HR 250 500 250 Intake, IV Titration 724.187 16.630 14.461 Amount Dextrose 5%-0.9% NaCl 1, 500 000 ml @ 50 mls/hr IV . Q20H [facility] Rx#:[id number] Norepinephrine 32 mg In 124.187 16.630 14.461 Sodium Chloride 0.9% 218 ml @ 0.05 MCG/KG/MIN 1. 805 mls/hr IV .Q24H [facility] Rx#:[id number] Piperacillin-Tazobactam 3 100 .375 gm In Sodium Chloride 0.9% 100 ml @ 25 mls/hr IVPB Q12H [facility] Rx# :[id number] Oral 10 Tube Feeding 125 146 85 Other 80 90 90 Output: Urine 0 0 0 Stool 0 Other: Voiding Method Diaper Diaper Diaper Incontinent Incontinent Incontinent # Voids 0 ABP, PAP, CO, CI - Last Documented Arterial Blood Pressure 83/57 - Exam PHYSICAL EXAM: VITAL SIGNS: Reviewed. GENERAL: Well-developed in no acute distress. HEENT: Head is normocephalic. Pupils are equal, round. Sclerae anicteric. Mucous membranes of the mouth are moist. NECK: Supple. No JVD or thyromegaly RESPIRATORY: Respirations even and unlabored. Lungs diminished to auscultation bilaterally. CARDIO: Regular rate and rhythm. S1 and S2 heard. No murmur or gallops. EXTREMITIES: Normal range of motion. No clubbing or cyanosis. Peripheral pulses intact. Generalized edema NEURO: Orientated x0 - Labs CBC & Chem 7: 06/05/21 02:35 06/05/21 02:35 Labs: Abnormal Lab Results - Last 24 Hours (Table) 06/03/21 06/04/21 06/04/21 Range/Units 11:30 03:20 12:15 WBC (3.8-10.6) k/uL RBC (3.80-5.40) m/uL Hgb (11.4-16.0) gm/dL Hct (34.0-46.0) % MCV (80.0-100.0) fL MCHC (31.0-37.0) g/dL RDW (11.5-15.5) % Plt Count (150-450) k/uL Macrocytosis Potassium (3.5-5.1) mmol/L Creatinine (0.52-1.04) mg/dL POC Glucose (mg/dL) (75-99) mg/dL Plasma Lactic Acid David 3.7 H* (0.7-2.0) mmol/L Iron 40 L (50-170) ug/dL TIBC 76 L (228-460) ug/dL % Saturation 52.85 H (12.00-45.00) Transferrin 54.6 L (204.0-354.0) mg/dL Ferritin 2966.0 H (10.0-291.0) ng/mL C-Reactive Protein (<1.0) mg/dL Procalcitonin 0.66 H (0.02-0.09) ng/mL 06/04/21 06/04/21 06/05/21 Range/Units 18:06 23:49 02:35 WBC (3.8-10.6) k/uL RBC (3.80-5.40) m/uL Hgb (11.4-16.0) gm/dL Hct (34.0-46.0) % MCV (80.0-100.0) fL MCHC (31.0-37.0) g/dL RDW (11.5-15.5) % Plt Count (150-450) k/uL Macrocytosis Potassium 3.4 L (3.5-5.1) mmol/L Creatinine 2.96 H (0.52-1.04) mg/dL POC Glucose (mg/dL) 172 H 120 H (75-99) mg/dL Plasma Lactic Acid David (0.7-2.0) mmol/L Iron (50-170) ug/dL TIBC (228-460) ug/dL % Saturation (12.00-45.00) Transferrin (204.0-354.0) mg/dL Ferritin (10.0-291.0) ng/mL C-Reactive Protein 3.1 H (<1.0) mg/dL Procalcitonin (0.02-0.09) ng/mL 06/05/21 06/05/21 Range/Units 02:35 05:52 WBC 24.7 H (3.8-10.6) k/uL RBC 2.59 L (3.80-5.40) m/uL Hgb 8.3 L (11.4-16.0) gm/dL Hct 27.4 L (34.0-46.0) % MCV 105.8 H (80.0-100.0) fL MCHC 30.5 L (31.0-37.0) g/dL RDW 17.6 H (11.5-15.5) % Plt Count 75 L (150-450) k/uL Macrocytosis Marked A Potassium (3.5-5.1) mmol/L Creatinine (0.52-1.04) mg/dL POC Glucose (mg/dL) 137 H (75-99) mg/dL Plasma Lactic Acid David (0.7-2.0) mmol/L Iron (50-170) ug/dL TIBC (228-460) ug/dL % Saturation (12.00-45.00) Transferrin (204.0-354.0) mg/dL Ferritin (10.0-291.0) ng/mL C-Reactive Protein (<1.0) mg/dL Procalcitonin (0.02-0.09) ng/mL Microbiology - Last 24 Hours (Table) 06/03/21 11:30 Blood Culture - Preliminary Blood No Growth after 24 hours Assessment and Plan Assessment: Sinus tachycardia, likely related to sepsis, dehydration, and acute CVA Hypotension likely related to sepsis, Hypovolemia/dehydration Acute right frontal parietal CVA Thrombocytopenia Metabolic encephalopathy History of hypertension Hyperlipidemia Hypothyroidism Plan: Continue on Levophed and titrate blood pressure tolerates Continue with all other current medications Continue telemetry monitoring Further recommendations based on clinical course The above impression and plan of care have been discussed and directed by the signing physician. Re Tapia, nurse practitioner, acting as scribe for signing physician.
--- NOTE | 2021-06-05 12:08 | P.PN ---
Subjective Progress Note Date: 06/05/21 The patient was seen and examined. She remians in the ICU. Exchange through the night. She continues to moan and does not respond or follow commands. She remains hypotensive and Levophed has been increased. Patient undergoing hemodialysis. Objective - Vital Signs Vital signs: Vital Signs Temp 97.5 F L 06/05/21 08:00 Pulse 125 H 06/05/21 11:00 Resp 18 06/05/21 11:00 BP 91/43 06/05/21 11:00 Pulse Ox 98 06/05/21 11:00 Intake & Output 06/04/21 06/05/21 06/05/21 18:59 06:59 18:59 Intake Total 1216.187 782.630 462.546 Output Total 0 0 0 Balance 1216.187 782.630 462.546 Weight 85.4 kg 86.3 kg 86.3 kg Intake: IV 277 530 265 0.9NS Pressure BAg 27 30 15 D5.9 NACL @50ML/HR 250 500 250 Intake, IV Titration 724.187 16.630 22.546 Amount Dextrose 5%-0.9% NaCl 1, 500 000 ml @ 50 mls/hr IV . Q20H [facility] Rx#:[id number] Norepinephrine 32 mg In 124.187 16.630 22.546 Sodium Chloride 0.9% 218 ml @ 0.05 MCG/KG/MIN 1. 805 mls/hr IV .Q24H [facility] Rx#:[id number] Piperacillin-Tazobactam 3 100 .375 gm In Sodium Chloride 0.9% 100 ml @ 25 mls/hr IVPB Q12H [facility] Rx# :[id number] Oral 10 Tube Feeding 125 146 85 Other 80 90 90 Output: Urine 0 0 0 Stool 0 Other: Voiding Method Diaper Diaper Diaper Incontinent Incontinent Incontinent # Voids 0 ABP, PAP, CO, CI - Last Documented Arterial Blood Pressure 83/57 - Exam General appearance: The patient is an lethargic, moaning, appears in no acute distress. HET: Head is normocephalic and atraumatic. Pupils are equal and reactive. Oropharynx is clear without lesions. Neck: Supple without lymphadenopathy. Trachea midline. Extremities: Normal skin color and turgor. Bilateral lower extremity edema. Neurological: Lethargic, nonverbal and not answering questions or following commands. - Labs CBC & Chem 7: 06/05/21 02:35 06/05/21 02:35 Labs: Abnormal Lab Results - Last 24 Hours (Table) 06/03/21 06/04/21 06/04/21 Range/Units 11:30 03:20 12:15 WBC (3.8-10.6) k/uL RBC (3.80-5.40) m/uL Hgb (11.4-16.0) gm/dL Hct (34.0-46.0) % MCV (80.0-100.0) fL MCHC (31.0-37.0) g/dL RDW (11.5-15.5) % Plt Count (150-450) k/uL Macrocytosis Potassium (3.5-5.1) mmol/L Creatinine (0.52-1.04) mg/dL POC Glucose (mg/dL) (75-99) mg/dL Plasma Lactic Acid David 3.7 H* (0.7-2.0) mmol/L Iron 40 L (50-170) ug/dL TIBC 76 L (228-460) ug/dL % Saturation 52.85 H (12.00-45.00) Transferrin 54.6 L (204.0-354.0) mg/dL Ferritin 2966.0 H (10.0-291.0) ng/mL C-Reactive Protein (<1.0) mg/dL Procalcitonin 0.66 H (0.02-0.09) ng/mL 06/04/21 06/04/21 06/05/21 Range/Units 18:06 23:49 02:35 WBC (3.8-10.6) k/uL RBC (3.80-5.40) m/uL Hgb (11.4-16.0) gm/dL Hct (34.0-46.0) % MCV (80.0-100.0) fL MCHC (31.0-37.0) g/dL RDW (11.5-15.5) % Plt Count (150-450) k/uL Macrocytosis Potassium 3.4 L (3.5-5.1) mmol/L Creatinine 2.96 H (0.52-1.04) mg/dL POC Glucose (mg/dL) 172 H 120 H (75-99) mg/dL Plasma Lactic Acid David (0.7-2.0) mmol/L Iron (50-170) ug/dL TIBC (228-460) ug/dL % Saturation (12.00-45.00) Transferrin (204.0-354.0) mg/dL Ferritin (10.0-291.0) ng/mL C-Reactive Protein 3.1 H (<1.0) mg/dL Procalcitonin (0.02-0.09) ng/mL 06/05/21 06/05/21 Range/Units 02:35 05:52 WBC 24.7 H (3.8-10.6) k/uL RBC 2.59 L (3.80-5.40) m/uL Hgb 8.3 L (11.4-16.0) gm/dL Hct 27.4 L (34.0-46.0) % MCV 105.8 H (80.0-100.0) fL MCHC 30.5 L (31.0-37.0) g/dL RDW 17.6 H (11.5-15.5) % Plt Count 75 L (150-450) k/uL Macrocytosis Marked A Potassium (3.5-5.1) mmol/L Creatinine (0.52-1.04) mg/dL POC Glucose (mg/dL) 137 H (75-99) mg/dL Plasma Lactic Acid David (0.7-2.0) mmol/L Iron (50-170) ug/dL TIBC (228-460) ug/dL % Saturation (12.00-45.00) Transferrin (204.0-354.0) mg/dL Ferritin (10.0-291.0) ng/mL C-Reactive Protein (<1.0) mg/dL Procalcitonin (0.02-0.09) ng/mL Microbiology - Last 24 Hours (Table) 06/03/21 11:30 Blood Culture - Preliminary Blood No Growth after 24 hours Assessment and Plan Assessment: 1. Metabolic encephalopathy secondary to peritoneal catheter associated infection is post removal of peritoneal dialysis catheter 2. End-stage renal disease on hemodialysis 3. 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 Hypotension Plan: 1. Continue symptomatic and supportive care 2. Continue current antibiotics per recommendations from infectious disease 3. Tunneled PICC line cancelled for now as patient is hypotensive The impression and plan of care has been dictated as directed. Dr. Davis I performed a history and examination of this patient, discussed the same with the dictator. I agree with the dictator's note ,documented as a scribe. Any additional findings or plans will be noted.
--- NOTE | 2021-06-05 12:17 | P.PN ---
<Narciso Poloee - Last Filed: 06/05/21 12:09> Subjective Progress Note Date: 06/05/21 CHIEF COMPLAINT: Peritoneal dialysis catheter associated infection HISTORY OF PRESENT ILLNESS: 56-year-old female who presented to the emergency room with changes in her mental status and weakness. She was found to be septic for which they believe the source with her peritoneal dialysis catheter. She had that removed on 05/30/2020. She had been doing well. She had right femoral tunneled catheter placed on 05/31/[address] Navarro. She remains in the ICU, she is unresponsive and moaning. She has been hypotensive on levofed. Undergoing hemodialysis today. She's been afebrile. WBC 24.7 hemoglobin 8.3 platelet count 75,000 PHYSICAL EXAM: VITAL SIGNS: Reviewed. GENERAL: Well-developed appears in no acute distress. HEENT: No sclera icterus. Extraocular movements grossly intact. Moist buccal m ucosa. Head is atraumatic, normocephalic. ABDOMEN: Soft. Nondistended. Nontender. Incision clean dry and intact with no erythema or drainage. NEUROLOGIC: Lethargic with mental status changes. ASSESSMENT: 1. Infected peritoneal dialysis catheter status post removal 2. End-stage renal disease requiring dialysis 3. Hypotension PLAN: -Continue symptomatic and supportive care -Continue ICU management -Continue antibiotics per recommendations from infectious disease -Gen. surgery will be on standby if further needed please do not hesitate to call us back The impression and plan of care has been dictated as directed. Dr. Somers I performed a history and examination of this patient, discussed the same with the dictator. I agree with the dictator's note ,documented as a scribe. Any additional findings or plans will be noted. Objective - Vital Signs Vital signs: Vital Signs Temp 97.6 F 06/05/21 12:06 Pulse 105 H 06/05/21 12:06 Resp 16 06/05/21 12:06 BP 110/72 06/05/21 12:06 Pulse Ox 100 06/05/21 12:00 Intake & Output 06/04/21 06/05/21 06/05/21 18:59 06:59 18:59 Intake Total 1216.187 782.630 862.546 Output Total 0 0 600 Balance 1216.187 782.630 262.546 Weight 85.4 kg 86.3 kg 86.3 kg Intake: IV 277 530 318 0.9NS Pressure BAg 27 30 18 D5.9 NACL @50ML/HR 250 500 300 Intake, IV Titration 724.187 16.630 22.546 Amount Dextrose 5%-0.9% NaCl 1, 500 000 ml @ 50 mls/hr IV . Q20H [facility] Rx#:[id number] Norepinephrine 32 mg In 124.187 16.630 22.546 Sodium Chloride 0.9% 218 ml @ 0.05 MCG/KG/MIN 1. 805 mls/hr IV .Q24H [facility] Rx#:[id number] Piperacillin-Tazobactam 3 100 .375 gm In Sodium Chloride 0.9% 100 ml @ 25 mls/hr IVPB Q12H [facility] Rx# :[id number] Oral 10 Tube Feeding 125 146 102 Hemodialysis 300 Other 80 90 120 Output: Urine 0 0 0 Stool 0 Hemodialysis 600 Other: Voiding Method Diaper Diaper Diaper Incontinent Incontinent Incontinent # Voids 0 ABP, PAP, CO, CI - Last Documented Arterial Blood Pressure 138/84 - Labs CBC & Chem 7: 06/05/21 02:35 06/05/21 02:35 Labs: Abnormal Lab Results - Last 24 Hours (Table) 06/03/21 06/04/21 06/04/21 Range/Units 11:30 03:20 12:15 WBC (3.8-10.6) k/uL RBC (3.80-5.40) m/uL Hgb (11.4-16.0) gm/dL Hct (34.0-46.0) % MCV (80.0-100.0) fL MCHC (31.0-37.0) g/dL RDW (11.5-15.5) % Plt Count (150-450) k/uL Macrocytosis Potassium (3.5-5.1) mmol/L Creatinine (0.52-1.04) mg/dL POC Glucose (mg/dL) (75-99) mg/dL Plasma Lactic Acid David 3.7 H* (0.7-2.0) mmol/L Iron 40 L (50-170) ug/dL TIBC 76 L (228-460) ug/dL % Saturation 52.85 H (12.00-45.00) Transferrin 54.6 L (204.0-354.0) mg/dL Ferritin 2966.0 H (10.0-291.0) ng/mL C-Reactive Protein (<1.0) mg/dL Procalcitonin 0.66 H (0.02-0.09) ng/mL 06/04/21 06/04/21 06/05/21 Range/Units 18:06 23:49 02:35 WBC (3.8-10.6) k/uL RBC (3.80-5.40) m/uL Hgb (11.4-16.0) gm/dL Hct (34.0-46.0) % MCV (80.0-100.0) fL MCHC (31.0-37.0) g/dL RDW (11.5-15.5) % Plt Count (150-450) k/uL Macrocytosis Potassium 3.4 L (3.5-5.1) mmol/L Creatinine 2.96 H (0.52-1.04) mg/dL POC Glucose (mg/dL) 172 H 120 H (75-99) mg/dL Plasma Lactic Acid David (0.7-2.0) mmol/L Iron (50-170) ug/dL TIBC (228-460) ug/dL % Saturation (12.00-45.00) Transferrin (204.0-354.0) mg/dL Ferritin (10.0-291.0) ng/mL C-Reactive Protein 3.1 H (<1.0) mg/dL Procalcitonin (0.02-0.09) ng/mL 06/05/21 06/05/21 Range/Units 02:35 05:52 WBC 24.7 H (3.8-10.6) k/uL RBC 2.59 L (3.80-5.40) m/uL Hgb 8.3 L (11.4-16.0) gm/dL Hct 27.4 L (34.0-46.0) % MCV 105.8 H (80.0-100.0) fL MCHC 30.5 L (31.0-37.0) g/dL RDW 17.6 H (11.5-15.5) % Plt Count 75 L (150-450) k/uL Macrocytosis Marked A Potassium (3.5-5.1) mmol/L Creatinine (0.52-1.04) mg/dL POC Glucose (mg/dL) 137 H (75-99) mg/dL Plasma Lactic Acid David (0.7-2.0) mmol/L Iron (50-170) ug/dL TIBC (228-460) ug/dL % Saturation (12.00-45.00) Transferrin (204.0-354.0) mg/dL Ferritin (10.0-291.0) ng/mL C-Reactive Protein (<1.0) mg/dL Procalcitonin (0.02-0.09) ng/mL Microbiology - Last 24 Hours (Table) 06/03/21 11:30 Blood Culture - Preliminary Blood No Growth after 24 hours <Toni Somers - Last Filed: 06/05/21 17:52> Subjective I have personally seen and examined the patient, reviewed the [employer] /PAs history, exam and MDM and agree with the assessment and plan as written. Based on total visit time, I have performed more than 50% of the visit. As above. No further surgical intervention planned at this time. We'll sign off. Please call if needed. Objective - Vital Signs Vital signs: Vital Signs Temp 97.6 F 06/05/21 17:00 Pulse 71 06/05/21 17:00 Resp 16 06/05/21 17:00 BP 108/65 06/05/21 17:00 Pulse Ox 96 06/05/21 17:00 Intake & Output 06/04/21 06/05/21 06/05/21 18:59 06:59 18:59 Intake Total 1216.187 305.947 5473.308 Output Total 0 0 600 Balance 1216.187 782.630 627.308 Weight 85.4 kg 86.3 kg 86.3 kg Intake: IV 277 530 583 0.9NS Pressure BAg 27 30 33 D5.9 NACL @50ML/HR 250 500 550 Intake, IV Titration 724.187 16.630 88.308 Amount Dextrose 5%-0.9% NaCl 1, 500 000 ml @ 50 mls/hr IV . Q20H [facility] Rx#:[id number] Norepinephrine 32 mg In 124.187 16.630 88.308 Sodium Chloride 0.9% 218 ml @ 0.05 MCG/KG/MIN 1. 805 mls/hr IV .Q24H [facility] Rx#:[id number] Piperacillin-Tazobactam 3 100 .375 gm In Sodium Chloride 0.9% 100 ml @ 25 mls/hr IVPB Q12H [facility] Rx# :[id number] Oral 10 Tube Feeding 125 146 136 Hemodialysis 300 Other 80 90 120 Output: Urine 0 0 0 Stool 0 Hemodialysis 600 Other: Voiding Method Diaper Diaper Diaper Incontinent Incontinent Incontinent # Voids 0 # Bowel Movements 1 ABP, PAP, CO, CI - Last Documented Arterial Blood Pressure 87/73 - Labs CBC & Chem 7: 06/05/21 02:35 06/05/21 14:41 Labs: Abnormal Lab Results - Last 24 Hours (Table) 06/03/21 06/04/21 06/04/21 Range/Units 11:30 03:20 18:06 WBC (3.8-10.6) k/uL RBC (3.80-5.40) m/uL Hgb (11.4-16.0) gm/dL Hct (34.0-46.0) % MCV (80.0-100.0) fL MCHC (31.0-37.0) g/dL RDW (11.5-15.5) % Plt Count (150-450) k/uL Macrocytosis Potassium (3.5-5.1) mmol/L Chloride (98-107) mmol/L Carbon Dioxide (22-30) mmol/L Creatinine (0.52-1.04) mg/dL Glucose (74-99) mg/dL POC Glucose (mg/dL) 172 H (75-99) mg/dL Iron 40 L (50-170) ug/dL TIBC 76 L (228-460) ug/dL % Saturation 52.85 H (12.00-45.00) Transferrin 54.6 L (204.0-354.0) mg/dL C-Reactive Protein (<1.0) mg/dL Procalcitonin 0.66 H (0.02-0.09) ng/mL 06/04/21 06/05/21 06/05/21 Range/Units 23:49 02:35 02:35 WBC 24.7 H (3.8-10.6) k/uL RBC 2.59 L (3.80-5.40) m/uL Hgb 8.3 L (11.4-16.0) gm/dL Hct 27.4 L (34.0-46.0) % MCV 105.8 H (80.0-100.0) fL MCHC 30.5 L (31.0-37.0) g/dL RDW 17.6 H (11.5-15.5) % Plt Count 75 L (150-450) k/uL Macrocytosis Marked A Potassium 3.4 L (3.5-5.1) mmol/L Chloride (98-107) mmol/L Carbon Dioxide (22-30) mmol/L Creatinine 2.96 H (0.52-1.04) mg/dL Glucose (74-99) mg/dL POC Glucose (mg/dL) 120 H (75-99) mg/dL Iron (50-170) ug/dL TIBC (228-460) ug/dL % Saturation (12.00-45.00) Transferrin (204.0-354.0) mg/dL C-Reactive Protein 3.1 H (<1.0) mg/dL Procalcitonin (0.02-0.09) ng/mL 06/05/21 06/05/21 06/05/21 Range/Units 02:35 05:52 14:41 WBC (3.8-10.6) k/uL RBC (3.80-5.40) m/uL Hgb (11.4-16.0) gm/dL Hct (34.0-46.0) % MCV (80.0-100.0) fL MCHC (31.0-37.0) g/dL RDW (11.5-15.5) % Plt Count (150-450) k/uL Macrocytosis Potassium 3.2 L (3.5-5.1) mmol/L Chloride 118 H (98-107) mmol/L Carbon Dioxide 19 L (22-30) mmol/L Creatinine 2.15 H (0.52-1.04) mg/dL Glucose 163 H (74-99) mg/dL POC Glucose (mg/dL) 137 H (75-99) mg/dL Iron (50-170) ug/dL TIBC (228-460) ug/dL % Saturation (12.00-45.00) Transferrin (204.0-354.0) mg/dL C-Reactive Protein (<1.0) mg/dL Procalcitonin 0.68 H (0.02-0.09) ng/mL Microbiology - Last 24 Hours (Table) 06/03/21 11:30 Blood Culture - Preliminary Blood No Growth after 48 hours Assessment and Plan (1) ESRD on peritoneal dialysis Current Visit: No Status: Chronic Code(s): N18.6 - END STAGE RENAL DISEASE; Z99.2 - DEPENDENCE ON RENAL DIALYSIS SNOMED Code(s): 614446819
--- NOTE | 2021-06-05 12:44 | P.PN ---
Subjective Progress Note Date: 06/05/21 HISTORY OF PRESENT ILLNESS 56-year-old female with developmental delay who had history of end-stage renal disease on peritoneal dialysis, history of hypertension, hyperlipidemia, h ypothyroidism who had an infected left knee late last year had surgery and ended up going to rehab for long time was home for the last few weeks when patient developed to have significant change mental status with decreased oral intake with worsening symptoms overall for the last few days have been having fatigue tiredness not been eating or drinking no now moving. Also her dialysis has been getting quite bit worse patient apparently will be switch to hemodialysis was told need workup for fistula graft the left arm for possible hemodialysis. Family ended up bringing her to demurs department at [facility] where was seen and evaluated surprisingly found to have mildly elevated troponin with severe electrolyte imbalance with potassium of 2.1 only. Chest x-ray did not show any infection just atelectasis, COVID-19 was negative at the time. Patient was started on gentle hydration will be admitted to the hospital be seen nephrology and vascular, CK with troponin 3 will be done and patient will be seen cardiology further intervention after doing an echocardiogram will depend on the result. 05/26: Patient states that she is feeling better. No complaints or concerns. Plan is for patient to change from peritoneal dialysis to hemodialysis. Consult for nephrology and vascular surgery in place. Patient remains afebrile, heart rate 108, respirations 18, blood pressure 105/71 pulse ox 90% on room air. WC 10.8, hemoglobin 11.3, sodium 133, potassium 3.1, BUN 44, creatinine 5.15. 05/27, patient is currently nothing by mouth, for planned Port-A-Cath placement today, for the transfusion hemodialysis treatment, from a peritoneal dialysis regimen. Patient has dry mouth, no nausea no vomiting, no chest pain no shortness of breath, vitals are stable, 118/64, no fever, T-max of 97.0, heart rate is in the 70s. Pulse ox room air 98% 05/28: Patient is seen today on the cardiac stepdown unit. She is receiving intraperitoneal antibiotics. Patient is receiving regular CAPD managed by nephrology. Nephrology is planning on 2-3 weeks of antibiotic therapy. Tonsils been added for Dr. Doran 8. 05/29: Throughout the night, blood pressure was low down to 68/50, CAPD was held, patient received 500 mL bolus last evening a repeat this morning and we are ordering another 250 ML's now. Blood pressure has recovered somewhat at 90/60. Cortisol level was ordered and patient will be started on hydrocortisone 100 mg IV every 8 hours. Ensure clear and beneprotein added. Sodium was 132, potassium 3.0 will be replaced, BUN 33 creatinine 4.34, blood sugar 107. The plan to transfer patient to ICU but at this point, hold any transfer and continue current treatment. Dr. Randhawa has seen and reviewed patient, blood cultures and inflammatory markers pending. 05/30: Patient is scheduled to have CAPD catheter removed with Dr. Somers and have dialysis by Dr. Navarro. Blood pressures are improved. Hydrocortisone discontinued as cortisol level was at 30. Blood pressure 103/72, afebrile, heart rate in the 60s, pulse ox 100% on room air. 05/31: Patient had CAPD catheter removed and she is scheduled for dialysis catheter placement today with Dr. Navarro. Patient will be continued on hemodialysis with plan for subacute rehab for discharge once chair time has been obtained for dialysis. Patient is afebrile, heart rate 77, blood pressure 95/55, pulse ox 98% on room air. 06/01: Right common femoral approach for hemodialysis access, was placed on 05/[address] Navarro, antibiotic needs to be finalized by Dr. Randhawa, for peritonitis caused by the peritoneal catheter which has been discontinued also on 05/31 2021. Anticipate discharge to subacute rehab on Thursday, brother is at bedside today, updated regarding treatment plan, no fever no chills, patient has been drowsy today, most likely secondary to pain meds, or lack of sleep. Feedings are minimal today, and is being fed by the brother without any difficulties. No fevers, no aspiration 06/02: patient is seen with the family members today, patient's moaning groaning, starting at9:30 at night, and was noted to have changes in mentationpatient cannot verbally verbalize what is going on last night, do not improve with small dose of Dilaudid 0.5 mg to control the femoral pain, CAT scan of the brain was ordered, 9:33 PM, age indeterminate right frontal lobe CVA with no comparison previous CT, there is a focus of patricio white matter differentiation loss within the right frontal lobe, no interparenchymal hemorrhage or mass effect,, concentration for MRI if clinically warranted, 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 Carrion neurology, for whichanother stat CT was placed,aunt 10 AM, there is an area of diminished attenuation with sulcal effacement involving the left frontal parietal lobe suggestive of acute ischemia, diminished attenuation in the high left parietal region, also suspicious for recent ischemia,code stroke was calledpatient is placed on aspirin 81 mg daily, and Plavix 75 mg daily. However patient cannot take any oral medications at this time, we started aspirin suppository, 1025 mg, until oral route is established. Discussed this with the mother, there was no plans for a PEG feeding at one time she had similar problems for which she has not eaten for one month, and they have used and a NG-tube or dophoff feeding in past it looks like the femoral cath is only a temporary way of providing dialysis, and possibly would return to peritoneal dialysis once cleared of infection.when seen today, patient cannot follow commands, can move ice, small facial droop right side,and not follow verbal commands, painstimuli was given to elicit a motor response, withdraws on the left, no withdrawal of arms on the right side. There is no localization of painful stimuli, and left lower extremity, no movement or evidence of sensation on the right side.blood cultures, no growth 96 hours,IV access to right femoral catheter, blood pressure 97/62 to 117/73. 06/03: Patient was transferred into the intensive care unit due to hypotension and tachycardia status post 1.5 L fluid bolus with plan to start levophed. The line has been placed by pulmonary medicine. She has been seen by cardiology and echocardiogram was ordered. No sign of atrial fibrillation. Nephrology is planning for hemodialysis today. Ankle myosin level XLIII.3. Cortisol level XXXVI and patient has been started on IV hydrocortisone. She remains unresponsive since Thursday evening and followed by nephrology left cerebral artery infarct. Echocardiogram shows EF 55-60% with borderline concentric left ventricular hypertrophy, mild aortic valve sclerosis, mild mitral calcification. Carotid ultrasound reveals no significant stenosis in the bilateral ICAs. Chest x-ray reveals right-sided catheter. No acute pulmonary process. 06/04: Patient remains in the intensive care unit. She is on levo fed which is trying to be weaned down. She is NG tube in place to start tube feedings. She received hemodialysis yesterday and none today. Patient is followed by neurology and is scheduled for EEG today. Patient is followed by multiple consultants. Vascular will be placing a PICC line. Patient is followed by electrical and instrument mechanic, Dr. Somers , cardiology, as well. Patient is continued on IV antibiotics in the form of Zosyn and vancomycin managed by Dr. Randhawa. 06/05: Patient remains in the intensive care unit. She is receiving hemodialysis today and is on norepinephrine. Patient is unresponsive, unable to take any oral intake. Repeat blood work reveals WBC 24.7, hemoglobin 8.3, platelet count 75. Potassium 3.4, creatinine 2.96. Blood sugars are running between 92 and 172. Vancomycin 22.4. C-reactive protein 3.1. Phosphorus 2.7, magnesium 1.9. Mom is at bedside and updated regarding condition and prognosis. She relates that she wishes to have everything done for her daughter. Code status clarified to full code. General surgery is following on an as-needed basis. Vascular is following and tunneled PICC line catheter placement is canceled due to hypotension. Patient is also followed by nephrology, neurology, electrical and instrument mechanic. Solu-Cortef decrease to 50 mg every 8 hours. Prognosis is guarded. REVIEW OF SYSTEMS Able to obtain due to mental status changes. PHYSICAL EXAMINATION Gen: This is a 56-year-old obese female resting in the ICU bed. Mother is at bedside.. HEENT: Head is atraumatic, normocephalic. Pupils equal, round. Sclerae is anicteric. NECK: Supple. No JVD. No lymphadenopathy. No thyromegaly. LUNGS: decreased breath some bilaterally with rhonchi no crackles or wheezes. HEART: Regular rate and rhythm. No murmur. ABDOMEN: Soft. Bowel sounds are present. CAPD catheter was removed. EXTREMITIES: No pedal edema. No calf tenderness. scar on the left knee from previous surgery. NEUROLOGICAL: Patient does not arouse to verbal stimuli. ASSESSMENT AND PLAN 1. Metabolic encephalopathy secondary to PD catheter-associated peritonitis. Patient continued on Zosyn and vancomycin, pharmacy dosing, consult with Dr. Randhawa appreciated. CAPD catheter removed 05/31 [address] Navarro dialysis catheter 05/31 2021 2. 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 Neurology is following, continue aspirin 300 mg rectal, Lipitor 10 mg at bedtime, Plavix 75 mg daily. Patient started on NG tube feedings. Elevated troponin and possible non-ST FL ruled out by cardiology. Cardiology consult appreciated. Septic shock requiring vasopressor. Continue management in the intensive care unit. Continue Solu-Cortef decrease to 50 mg every 8 hours. Hypothyroidism: Continue patient on levothyroxine 112 g daily. Hyperlipidemia: Has been on atorvastatin 10 mg a day. Chronic gout: Patient has been on Zyloprim 100 mg daily. Electrolyte imbalance with severe hypokalemia as well as replacement. Chronic anemia of chronic renal disease. Continue Aranesp. Infected left knee post surgery patient left knee is non-ambulatory. status post antibiotic spacer in place. Severe dehydration Moderate protein calorie malnutrition. Continue tube feedings by NG tube. End-stage renal disease, previously on CAPD, patient transitioned to hemodialysis. GI prophylaxis: Patient be on Protonix. DVT prophylaxis: Knee-high ANDRE hose and Venodyne boots if needed subcu heparin will be done. COVID-19 testing.was negative. Prognosis is guarded Status: Full code Discharge plan:subacute rehab at [facility] Impression and plan of care have been directed as dictated by the signing physician. Kianna Don nurse practitioner acting as scribe for signing physician. Objective - Vital Signs Vital signs: Vital Signs Temp 97.5 F L 06/05/21 08:00 Pulse 90 06/05/21 08:30 Resp 10 L 06/05/21 08:30 BP 84/57 06/05/21 08:30 Pulse Ox 100 06/05/21 08:30 Intake & Output 06/04/21 06/05/21 06/05/21 18:59 06:59 18:59 Intake Total 1216.187 782.630 300 Output Total 0 0 0 Balance 1216.187 782.630 300 Weight 85.4 kg 86.3 kg Intake: IV 277 530 159 0.9NS Pressure BAg 27 30 9 D5.9 NACL @50ML/HR 250 500 150 Intake, IV Titration 724.187 16.630 0 Amount Dextrose 5%-0.9% NaCl 1, 500 000 ml @ 50 mls/hr IV . Q20H KAYLIN Rx#:[id number] Norepinephrine 32 mg In 124.187 16.630 0 Sodium Chloride 0.9% 218 ml @ 0.05 MCG/KG/MIN 1. 805 mls/hr IV .Q24H KALYIN Rx#:[id number] Piperacillin-Tazobactam 3 100 .375 gm In Sodium Chloride 0.9% 100 ml @ 25 mls/hr IVPB Q12H KAYLIN Rx# :[id number] Oral 10 Tube Feeding 125 146 51 Other 80 90 90 Output: Urine 0 0 0 Stool 0 Other: Voiding Method Diaper Diaper Incontinent Incontinent # Voids 0 ABP, PAP, CO, CI - Last Documented Arterial Blood Pressure 102/55 - Labs CBC & Chem 7: 06/05/21 02:35 06/05/21 02:35 Labs: Abnormal Lab Results - Last 24 Hours (Table) 06/04/21 06/04/21 06/04/21 Range/Units 03:20 12:15 18:06 WBC (3.8-10.6) k/uL RBC (3.80-5.40) m/uL Hgb (11.4-16.0) gm/dL Hct (34.0-46.0) % MCV (80.0-100.0) fL MCHC (31.0-37.0) g/dL RDW (11.5-15.5) % Plt Count (150-450) k/uL Macrocytosis Potassium (3.5-5.1) mmol/L Creatinine (0.52-1.04) mg/dL POC Glucose (mg/dL) 172 H (75-99) mg/dL Plasma Lactic Acid David 3.7 H* (0.7-2.0) mmol/L Iron 40 L (50-170) ug/dL TIBC 76 L (228-460) ug/dL % Saturation 52.85 H (12.00-45.00) Transferrin 54.6 L (204.0-354.0) mg/dL Ferritin 2966.0 H (10.0-291.0) ng/mL C-Reactive Protein (<1.0) mg/dL 06/04/21 06/05/21 06/05/21 Range/Units 23:49 02:35 02:35 WBC 24.7 H (3.8-10.6) k/uL RBC 2.59 L (3.80-5.40) m/uL Hgb 8.3 L (11.4-16.0) gm/dL Hct 27.4 L (34.0-46.0) % MCV 105.8 H (80.0-100.0) fL MCHC 30.5 L (31.0-37.0) g/dL RDW 17.6 H (11.5-15.5) % Plt Count 75 L (150-450) k/uL Macrocytosis Marked A Potassium 3.4 L (3.5-5.1) mmol/L Creatinine 2.96 H (0.52-1.04) mg/dL POC Glucose (mg/dL) 120 H (75-99) mg/dL Plasma Lactic Acid David (0.7-2.0) mmol/L Iron (50-170) ug/dL TIBC (228-460) ug/dL % Saturation (12.00-45.00) Transferrin (204.0-354.0) mg/dL Ferritin (10.0-291.0) ng/mL C-Reactive Protein 3.1 H (<1.0) mg/dL 06/05/21 Range/Units 05:52 WBC (3.8-10.6) k/uL RBC (3.80-5.40) m/uL Hgb (11.4-16.0) gm/dL Hct (34.0-46.0) % MCV (80.0-100.0) fL MCHC (31.0-37.0) g/dL RDW (11.5-15.5) % Plt Count (150-450) k/uL Macrocytosis Potassium (3.5-5.1) mmol/L Creatinine (0.52-1.04) mg/dL POC Glucose (mg/dL) 137 H (75-99) mg/dL Plasma Lactic Acid David (0.7-2.0) mmol/L Iron (50-170) ug/dL TIBC (228-460) ug/dL % Saturation (12.00-45.00) Transferrin (204.0-354.0) mg/dL Ferritin (10.0-291.0) ng/mL C-Reactive Protein (<1.0) mg/dL Microbiology - Last 24 Hours (Table) 06/03/21 11:30 Blood Culture - Preliminary Blood No Growth after 24 hours
--- NOTE | 2021-06-05 13:23 | P.PN ---
Subjective Progress Note Date: 06/05/21 Principal diagnosis: Acute peritonitis, sepsis, and possible septic shock. 06/01/2023 patient's condition is stable. The patient is hemodynamically improved and the patient is able to support her own blood pressure. The patient is currently running away cervical os 12.8 with a hemoglobin of 9.8. The BUN is at 33 with a creatinine of 4.5. Sodium is at 133. The peritoneal fluid culture die turner to be positive for enterococcus group D and earlier culture was positive for Enterococcus faecalis. The patient remains on vancomycin being administered IV. The patient's would have the CAPD catheter removed by general surgery and have a dialysis catheter inserted. Blood pressure is stable for now. The patient's had hydrocortisone level that was elevated and the hydrocortisone IV can be discontinued. No fever. No other significant events otherwise. The patient is calm and comfortable and there are no signs of any respiratory distress and the patient is currently on room air oxygen. Patient was evaluated today on 06/03/21, patient has been followed by Dr. Nielsen on 06/01. Apparently the patient was seen initially on consultation for hypotension, sepsis and septic shock. Patient presented initially with peritonitis. Patient used to be on peritoneal dialysis, and I believe she developed peritoneal dialysis catheter sepsis and peritonitis. A shunt has been treated and evaluated by multiple consultants. Patient was also seen by surgery and she underwent peritoneal dialysis catheter removal. And she was treated all along by infectious disease with multiple antibiotics for her abdominal sepsis/peritonitis. Dr. Nielsen signed off the case, however he was be notified today that the patient needed to be transferred to the ICU and she was developing hypotension again. I evaluated the patient shortly after she was transferred to the ICU, recommended fluid boluses, and I recommended norepinephrine to be started on this patient if she remains hypotensive. Patient is being followed by many consultants including nephrology for her chronic kidney disease. She had a left groin hemodialysis catheter, and I believe she is scheduled to undergo dialysis today. May require norepinephrine to perform hemodialysis. I was able to establish a left groin triple lumen catheter placement, without any complications. I have recommended more fluid boluses and recommended norepinephrine to be started and to continue antibiotics. Serum cortisol level was ordered, and if lobe may consider stress doses of hydrocortisone. Labs today have not been drawn mostly because of the patient had no venous access. Somewhat along the line I believe vascular yonatan neville was also consulted on this patient for vascular access. At any rate she does have now vascular access, she is in the ICU, and she remains on antibiotics. The patient has been moaning and groaning, and she does not seem to be appropriate. She is confused. But not in respiratory distress, she is on 2 L nasal cannula. Patient was evaluated by neurology yesterday, and she had a CT of the brain, findings are suspicious for acute ischemic left frontal and parietal lobe with no midline shift. Patient was reevaluated today on 06/04/2021, remains in the ICU, remains relatively hypotensive, patient is still requiring norepinephrine at 0.18 mcg/kg/m, she received fluid boluses yesterday. She underwent hemodialysis. Patient is being treated for positive bacteremia secondary to Enterococcus faecalis. She remains on Zosyn. Today I recommended a nasogastric tube and recommended that she gets enteral feeding. Patient had a relatively normal electrolytes, however her creatinine is 2.60. WBC count remains high at 28.4 hemoglobin is 9.2 hematocrit 29.6. And she is presently on 2 L nasal cannula. Patient continues to have intermittent episodes of moaning and groaning, but she does not have any purposeful responses. Today I also recommended the patient gets a PICC line placed, and hopefully we can discontinue the left groin central line was a PICC line is established. In the meantime we have a good vascular access to this patient. Again his CT of the brain suspicious for acute left frontal and left parietal ischemic stroke. Patient is being followed by neurology. No chest x-ray was done today, but her chest x-ray from yesterday showed no evidence of acute pulmonary process. Reevaluated today on 06/05/2021, patient remains in the ICU, she is hemodynamically unstable, she is requiring norepinephrine at 0.3 mcg/kg/m. Patient is on room air, and her O2 saturation is 99%, blood pressure is 74/42, patient is receiving hemodialysis today via a right femoral dialysis catheter. Patient remains unresponsive, she is moaning and groaning, does not seem to be in any respiratory distress. She is on Zosyn, and vancomycin. she is also on tube feeds using Nepro at 17 mL per hour. Patient has been seen by many consultants including neurology for her mental status change, considering repeat CT of the head on this patient. Patient is also scheduled to have a PICC line t elisha, she is on D5 0.9 at 50 mL per hour. And again she is being dialyzed today. Patient is being treated for sepsis and septic shock. She remains on Zosyn. Continues to have leukocytosis with WBC count of 24.7 hemoglobin 8.3. Creatinine today is 2.96. Blood sugar is 92. Objective - Vital Signs Vital signs: Vital Signs Temp 97.6 F 06/05/21 12:06 Pulse 105 H 06/05/21 12:06 Resp 16 06/05/21 12:06 BP 110/72 06/05/21 12:06 Pulse Ox 100 06/05/21 12:00 Intake & Output 06/04/21 06/05/21 06/05/21 18:59 06:59 18:59 Intake Total 1216.187 782.630 862.546 Output Total 0 0 600 Balance 1216.187 782.630 262.546 Weight 85.4 kg 86.3 kg 86.3 kg Intake: IV 277 530 318 0.9NS Pressure BAg 27 30 18 D5.9 NACL @50ML/HR 250 500 300 Intake, IV Titration 724.187 16.630 22.546 Amount Dextrose 5%-0.9% NaCl 1, 500 000 ml @ 50 mls/hr IV . Q20H [facility] Rx#:[id number] Norepinephrine 32 mg In 124.187 16.630 22.546 Sodium Chloride 0.9% 218 ml @ 0.05 MCG/KG/MIN 1. 805 mls/hr IV .Q24H [facility] Rx#:[id number] Piperacillin-Tazobactam 3 100 .375 gm In Sodium Chloride 0.9% 100 ml @ 25 mls/hr IVPB Q12H [facility] Rx# :[id number] Oral 10 Tube Feeding 125 146 102 Hemodialysis 300 Other 80 90 120 Output: Urine 0 0 0 Stool 0 Hemodialysis 600 Other: Voiding Method Diaper Diaper Diaper Incontinent Incontinent Incontinent # Voids 0 ABP, PAP, CO, CI - Last Documented Arterial Blood Pressure 138/84 - Exam Gen: This is a 56-year-old obese female resting in the ICU bed, on room air. HEENT: Head is atraumatic, normocephalic. Pupils equal, round. Sclerae is anicteric. NECK: Supple. No JVD. No lymphadenopathy. No thyromegaly. LUNGS: Symmetrical chest expansion, diminished breath sounds at the bases. HEART: Regular rate and rhythm. No murmur. ABDOMEN: Soft. Bowel sounds are present. Patient has a hemodialysis catheter in the right groin and a triple-lumen catheter in the left groin. EXTREMITIES: No pedal edema. No calf tenderness. scar on the left knee from previous surgery. NEUROLOGICAL: Patient is arousable,, continues to moan and groan. No purposeful responses - Labs CBC & Chem 7: 06/05/21 02:35 06/05/21 02:35 Labs: Abnormal Lab Results - Last 24 Hours (Table) 06/03/21 06/04/21 06/04/21 Range/Units 11:30 03:20 18:06 WBC (3.8-10.6) k/uL RBC (3.80-5.40) m/uL Hgb (11.4-16.0) gm/dL Hct (34.0-46.0) % MCV (80.0-100.0) fL MCHC (31.0-37.0) g/dL RDW (11.5-15.5) % Plt Count (150-450) k/uL Macrocytosis Potassium (3.5-5.1) mmol/L Creatinine (0.52-1.04) mg/dL POC Glucose (mg/dL) 172 H (75-99) mg/dL Iron 40 L (50-170) ug/dL TIBC 76 L (228-460) ug/dL % Saturation 52.85 H (12.00-45.00) Transferrin 54.6 L (204.0-354.0) mg/dL Ferritin 2966.0 H (10.0-291.0) ng/mL C-Reactive Protein (<1.0) mg/dL Procalcitonin 0.66 H (0.02-0.09) ng/mL 06/04/21 06/05/21 06/05/21 Range/Units 23:49 02:35 02:35 WBC 24.7 H (3.8-10.6) k/uL RBC 2.59 L (3.80-5.40) m/uL Hgb 8.3 L (11.4-16.0) gm/dL Hct 27.4 L (34.0-46.0) % MCV 105.8 H (80.0-100.0) fL MCHC 30.5 L (31.0-37.0) g/dL RDW 17.6 H (11.5-15.5) % Plt Count 75 L (150-450) k/uL Macrocytosis Marked A Potassium 3.4 L (3.5-5.1) mmol/L Creatinine 2.96 H (0.52-1.04) mg/dL POC Glucose (mg/dL) 120 H (75-99) mg/dL Iron (50-170) ug/dL TIBC (228-460) ug/dL % Saturation (12.00-45.00) Transferrin (204.0-354.0) mg/dL Ferritin (10.0-291.0) ng/mL C-Reactive Protein 3.1 H (<1.0) mg/dL Procalcitonin (0.02-0.09) ng/mL 06/05/21 Range/Units 05:52 WBC (3.8-10.6) k/uL RBC (3.80-5.40) m/uL Hgb (11.4-16.0) gm/dL Hct (34.0-46.0) % MCV (80.0-100.0) fL MCHC (31.0-37.0) g/dL RDW (11.5-15.5) % Plt Count (150-450) k/uL Macrocytosis Potassium (3.5-5.1) mmol/L Creatinine (0.52-1.04) mg/dL POC Glucose (mg/dL) 137 H (75-99) mg/dL Iron (50-170) ug/dL TIBC (228-460) ug/dL % Saturation (12.00-45.00) Transferrin (204.0-354.0) mg/dL Ferritin (10.0-291.0) ng/mL C-Reactive Protein (<1.0) mg/dL Procalcitonin (0.02-0.09) ng/mL Microbiology - Last 24 Hours (Table) 06/03/21 11:30 Blood Culture - Preliminary Blood No Growth after 24 hours Assessment and Plan Assessment: Impression: Hypotension, most likely secondary to sepsis and septic shock. Likely source is abdomen. 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 End-stage renal disease, on peritoneal dialysis in the past, and now she is on hemodialysis. Benign essential hypertension. History of hypothyroidism. Dyslipidemia. History of gout. Chronic anemia of chronic disease. Severe dehydration Electrolytes imbalance, resolving. Recommendation: Continue to monitor the patient in the ICU as long as she is requiring norepinephrine Continue antibiotics. Patient is presently on Zosyn and vancomycin. Continue norepinephrine and titrate accordingly. Continue hemodialysis. Continue enteral feeding. Patient is presently on Nepro. Continue GI and DVT prophylaxis. Patient is obviously critically ill, and prognosis is extremely poor and guarded. Apparently family has been approached about CODE STATUS, and the patient remains full code.. Patient is critically ill, critical care time is over 30 Time with Patient: Greater than 30
[2021-06-05 15:12] LABS: Calcium 8.6 mg/dL (8.4-10.2); Potassium 3.2 mmol/L (3.5-5.1)
[2021-06-05] MEDS: ONDANSETRON 4 MG/2 ML VIAL IVP PRN (15:24)
[2021-06-05] MEDS: POTASSIUM CHLORIDE 20 MEQ in WATER FOR INJECTION 1 100ML.BAG IVPB SCH ×2 (15:47→17:23)
[2021-06-05] MEDS: HYDROCORTISONE SUCCINATE 100 MG/2 ML VIAL IV SCH ×2 (15:47→23:37)
[2021-06-05] MEDS: NOREPINEPHRINE 32 MG in SODIUM CHLORIDE 0.9% 218 ML IV SCH (17:22)
[2021-06-05 18:26] LABS: Glucose,Whole Blood 151 mg/dL (75-99)
--- NOTE | 2021-06-05 18:55 | CT ---
EXAMINATION TYPE: CT brain wo con DATE OF EXAM: 06/05/2021 COMPARISON: 06/02/2021 HISTORY: Altered mental status. CT DLP: 1129.4 mGycm Automated exposure control for dose reduction was used. Images obtained of the brain without contrast. There is large area of hypodensity involving the left cerebral hemisphere in the middle cerebral tori ry distribution and consistent with a large infarct. There is some enlargement of the ventricles. The re is no evidence of intracranial hemorrhage. Calvarium is intact. There is agenesis of the corpus callosum. IMPRESSION: Large left hemisphere subacute infarct which shows increased size compared to CT scan 3 days ago. No hemorrhage.
[2021-06-05] MEDS: SERTRALINE 25 MG TAB PO SCH (20:38)
[2021-06-05] MEDS: ATORVASTATIN 10 MG TAB PO SCH (20:38)
--- NOTE | 2021-06-05 20:57 | P.PN ---
Subjective Progress Note Date: 06/05/21 Principal diagnosis: PD cath associated peritonitis Enterococcus faecalis and staph epi Interval history : Patient is a 56 female admitted to the hospital with nausea vomiting abdominal pain this patient noticed to have purulent peritoneal fluid and was diagnosed with the cath associated peritonitis in this patient who is status post removal of the peritoneal dialysis catheter and insertion of hemodialysis catheter. Patient was moved to the ICU on 06/03/2021 for worsening mental status changes With evidence of large left-sided CVA On today's evaluation that is 06/05/2021, The patient continues to be afebrile, the patient remains to be lethargic morning and is unable provide any history no vomiting diarrhea or any other changes reported by the nursing staff Objective - Vital Signs Vital signs: Vital Signs Temp 97.6 F 06/05/21 17:00 Pulse 67 06/05/21 19:30 Resp 14 06/05/21 19:30 BP 107/60 06/05/21 19:30 Pulse Ox 95 06/05/21 19:30 Intake & Output 06/05/21 06/05/21 06/06/21 06:59 18:59 06:59 Intake Total 363.472 1845.308 53 Output Total 0 600 0 Balance 782.630 680.308 53 Weight 86.3 kg 86.3 kg Intake: IV 530 636 53 0.9NS Pressure BAg 30 36 3 D5.9 NACL @50ML/HR 500 600 50 Intake, IV Titration 16.630 88.308 Amount Norepinephrine 32 mg In 16.630 88.308 Sodium Chloride 0.9% 218 ml @ 0.05 MCG/KG/MIN 1. 805 mls/hr IV .Q24H [facility] Rx#:[id number] Tube Feeding 146 136 0 Hemodialysis 300 Other 90 120 Output: Urine 0 0 0 Hemodialysis 600 Other: Voiding Method Diaper Diaper Incontinent Incontinent # Bowel Movements 1 ABP, PAP, CO, CI - Last Documented Arterial Blood Pressure 87/73 - Exam General description is a middle-aged female lying in bed in no distress. Respiratory system: Unlabored breathing, decreased intensity of breath sounds, no wheeze. Heart S1, S2.Regular rate and rhythm. Abdomen soft, no tenderness. No guarding or rigidity Extremities no edema feet - Labs CBC & Chem 7: 06/05/21 02:35 06/05/21 14:41 Labs: Abnormal Lab Results - Last 24 Hours (Table) 06/03/21 06/04/21 06/05/21 Range/Units 11:30 23:49 02:35 WBC (3.8-10.6) k/uL RBC (3.80-5.40) m/uL Hgb (11.4-16.0) gm/dL Hct (34.0-46.0) % MCV (80.0-100.0) fL MCHC (31.0-37.0) g/dL RDW (11.5-15.5) % Plt Count (150-450) k/uL Macrocytosis Potassium 3.4 L (3.5-5.1) mmol/L Chloride (98-107) mmol/L Carbon Dioxide (22-30) mmol/L Creatinine 2.96 H (0.52-1.04) mg/dL Glucose (74-99) mg/dL POC Glucose (mg/dL) 120 H (75-99) mg/dL C-Reactive Protein 3.1 H (<1.0) mg/dL Procalcitonin 0.66 H (0.02-0.09) ng/mL 06/05/21 06/05/21 06/05/21 Range/Units 02:35 02:35 05:52 WBC 24.7 H (3.8-10.6) k/uL RBC 2.59 L (3.80-5.40) m/uL Hgb 8.3 L (11.4-16.0) gm/dL Hct 27.4 L (34.0-46.0) % MCV 105.8 H (80.0-100.0) fL MCHC 30.5 L (31.0-37.0) g/dL RDW 17.6 H (11.5-15.5) % Plt Count 75 L (150-450) k/uL Macrocytosis Marked A Potassium (3.5-5.1) mmol/L Chloride (98-107) mmol/L Carbon Dioxide (22-30) mmol/L Creatinine (0.52-1.04) mg/dL Glucose (74-99) mg/dL POC Glucose (mg/dL) 137 H (75-99) mg/dL C-Reactive Protein (<1.0) mg/dL Procalcitonin 0.68 H (0.02-0.09) ng/mL 06/05/21 06/05/21 Range/Units 14:41 18:24 WBC (3.8-10.6) k/uL RBC (3.80-5.40) m/uL Hgb (11.4-16.0) gm/dL Hct (34.0-46.0) % MCV (80.0-100.0) fL MCHC (31.0-37.0) g/dL RDW (11.5-15.5) % Plt Count (150-450) k/uL Macrocytosis Potassium 3.2 L (3.5-5.1) mmol/L Chloride 118 H (98-107) mmol/L Carbon Dioxide 19 L (22-30) mmol/L Creatinine 2.15 H (0.52-1.04) mg/dL Glucose 163 H (74-99) mg/dL POC Glucose (mg/dL) 151 H (75-99) mg/dL C-Reactive Protein (<1.0) mg/dL Procalcitonin (0.02-0.09) ng/mL Microbiology - Last 24 Hours (Table) 06/03/21 11:30 Blood Culture - Preliminary Blood No Growth after 48 hours Assessment and Plan Assessment: 1-patient with a PD catheter associated peritonitis in this patient was status post removal of the infected dialysis catheter culture positive for Enterococcus faecalis and staph epi blood culture negative patient To continue with vancomycin pharmacy to dose Vanco level is therapeutic 2-patient with worsening of the white count question of aspiration pneumonitis. White count is trending down and the patient will continue with empiric Zosyn Time with Patient: Less than 30
[2021-06-05 23:32] LABS: Glucose,Whole Blood 123 mg/dL (75-99)
[2021-06-06] MEDS: PIPERACILLIN-TAZOBACTAM 3.375 GM in SODIUM CHLORIDE 0.9% 100 ML IVPB SCH ×2 (03:56→16:49)
[2021-06-06 05:23] LABS: Glucose,Whole Blood 151 mg/dL (75-99)
[2021-06-06] MEDS: INSULIN ASPART (NovoLOG) 100 UNIT/ML VIAL SQ SCH ×4 (05:24→23:17)
[2021-06-06] MEDS: NOREPINEPHRINE 32 MG in SODIUM CHLORIDE 0.9% 218 ML IV SCH ×2 (05:24→17:57)
[2021-06-06 05:41] LABS: Anisocytosis Slight; HCT 31.3 % (34.0-46.0); Hypochromasia Marked; MCHC 31.6 g/dL (31.0-37.0); MCV 104.4 fL (80.0-100.0); Macrocytosis Moderate; Mean Platelet Volume 15.3; RDW 17.3 % (11.5-15.5); WBC 26.7 k/uL (3.8-10.6)
[2021-06-06 05:43] LABS: HGB 9.9 gm/dL (11.4-16.0); Platelet Count 69 k/uL (150-450)
[2021-06-06 05:54] LABS: Calcium 8.9 mg/dL (8.4-10.2)
[2021-06-06 05:59] LABS: Vancomycin,Random 20.5 ug/mL
[2021-06-06 06:01] LABS: Magnesium 1.9 mg/dL (1.6-2.3); Phosphorus 3.3 mg/dL (2.5-4.5); Potassium 5.1 mmol/L (3.5-5.1)
[2021-06-06] MEDS ORDERED: SODIUM BICARB 8.4% 50 ML SYR (1 MEQ/ML) IV STA (06:46)
[2021-06-06] MEDS: LEVOTHYROXINE 112 MCG TAB PO SCH (06:54)
[2021-06-06] MEDS: MIDODRINE 5 MG TAB PO SCH ×3 (06:54→17:57)
[2021-06-06] MEDS: DEXTROSE 5%-0.9% NACL 1,000 ML IV SCH ×3 (07:04→23:31)
[2021-06-06] MEDS: HYDROCORTISONE SUCCINATE 100 MG/2 ML VIAL IV SCH ×3 (09:01→23:16)
[2021-06-06] MEDS: PANTOPRAZOLE 40 MG/10 ML VIAL IVP SCH (09:01)
[2021-06-06] MEDS: FAMOTIDINE 20 MG TAB PO SCH (09:02)
[2021-06-06] MEDS: MAGNESIUM OXIDE 400 MG TAB PO SCH (09:02)
[2021-06-06] MEDS: CLOPIDOGREL 75 MG TAB PO SCH (09:03)
[2021-06-06] MEDS: FOLIC ACID-VIT B COMPLEX-VIT C 1 CAP PO SCH (09:03)
[2021-06-06] MEDS: allopurinoL 100 MG TAB PO SCH (09:03)
--- NOTE | 2021-06-06 09:04 | P.PN ---
Subjective Patient is seen in follow-up for end-stage renal disease. She is maintained hemodialysis. PD catheter was removed due to resistant peritonitis. Receiving IV fluids. Also on Levophed. Blood pressure currently stable at 102/61. Not tolerating oral intake. Vital signs - on vasopressor support. HEENT: Head exam is unremarkable. NGT noted. LUNGS: Breath sounds decreased. HEART: Rate and Rhythm are regular. ABDOMEN: Soft, no distention. EXTREMITITES: 1+ edema. Objective - Vital Signs Vital signs: Vital Signs Temp 97.6 F 06/05/21 17:00 Pulse 64 06/06/21 07:00 Resp 12 06/06/21 07:00 BP 102/61 06/06/21 07:00 Pulse Ox 96 06/06/21 07:00 Intake & Output 06/05/21 06/06/21 06/06/21 18:59 06:59 18:59 Intake Total 1280.308 811.411 61.249 Output Total 600 700 Balance 680.308 111.411 61.249 Weight 86.3 kg Intake: IV 636 615 50 0.9NS Pressure BAg 36 15 D5.9 NACL @50ML/HR 600 600 50 Intake, IV Titration 88.308 196.411 11.249 Amount Norepinephrine 32 mg In 88.308 196.411 11.249 Sodium Chloride 0.9% 218 ml @ 0.05 MCG/KG/MIN 1. 805 mls/hr IV .Q24H [facility] Rx#:[id number] Tube Feeding 136 0 Hemodialysis 300 Other 120 Output: Gastric Drainage 700 Urine 0 0 Hemodialysis 600 Other: Voiding Method Diaper Diaper Incontinent Incontinent # Bowel Movements 1 ABP, PAP, CO, CI - Last Documented Arterial Blood Pressure 94/58 - Labs CBC & Chem 7: 06/06/21 05:20 06/06/21 05:20 Labs: Abnormal Lab Results - Last 24 Hours (Table) 06/03/21 06/05/21 06/05/21 Range/Units 11:30 02:35 14:41 WBC (3.8-10.6) k/uL RBC (3.80-5.40) m/uL Hgb (11.4-16.0) gm/dL Hct (34.0-46.0) % MCV (80.0-100.0) fL RDW (11.5-15.5) % Plt Count (150-450) k/uL Potassium 3.2 L (3.5-5.1) mmol/L Chloride 118 H (98-107) mmol/L Carbon Dioxide 19 L (22-30) mmol/L Creatinine 2.15 H (0.52-1.04) mg/dL Glucose 163 H (74-99) mg/dL POC Glucose (mg/dL) (75-99) mg/dL Procalcitonin 0.66 H 0.68 H (0.02-0.09) ng/mL 06/05/21 06/05/21 06/06/21 Range/Units 18:24 23:30 05:20 WBC (3.8-10.6) k/uL RBC (3.80-5.40) m/uL Hgb (11.4-16.0) gm/dL Hct (34.0-46.0) % MCV (80.0-100.0) fL RDW (11.5-15.5) % Plt Count (150-450) k/uL Potassium (3.5-5.1) mmol/L Chloride 119 H (98-107) mmol/L Carbon Dioxide 16 L (22-30) mmol/L Creatinine 2.44 H (0.52-1.04) mg/dL Glucose 161 H (74-99) mg/dL POC Glucose (mg/dL) 151 H 123 H (75-99) mg/dL Procalcitonin (0.02-0.09) ng/mL 06/06/21 06/06/21 Range/Units 05:20 05:21 WBC 26.7 H (3.8-10.6) k/uL RBC 3.00 L (3.80-5.40) m/uL Hgb 9.9 L D (11.4-16.0) gm/dL Hct 31.3 L (34.0-46.0) % MCV 104.4 H (80.0-100.0) fL RDW 17.3 H (11.5-15.5) % Plt Count 69 L (150-450) k/uL Potassium (3.5-5.1) mmol/L Chloride (98-107) mmol/L Carbon Dioxide (22-30) mmol/L Creatinine (0.52-1.04) mg/dL Glucose (74-99) mg/dL POC Glucose (mg/dL) 151 H (75-99) mg/dL Procalcitonin (0.02-0.09) ng/mL Microbiology - Last 24 Hours (Table) 06/03/21 11:30 Blood Culture - Preliminary Blood No Growth after 48 hours Assessment and Plan Plan: Assessment: 1. End-stage renal disease maintained on hemodialysis. 2. Hypokalemia from poor intake and PD losses. Replaced. Improved. This morning's potassium was hemolyzed. 3. Hypotension due to sepsis. On midodrine. Also on Levophed and IV steroids. Cortisol level not low. 4. Chronic kidney disease mineral bone disease. Phosphorus level 2.7 dated 06/04/2021. 5. PD associated peritonitis with fluid culture positive for group D enterococcus. PD catheter removed 05/30/21. On IV antibiotics. Infectious disease following. 6. Anemia of chronic kidney disease. On Aranesp. Iron replete. 7. Metabolic acidosis secondary to chronic kidney disease and IV fluids. 8. Subacute infarct. Plan: Hemodialysis tomorrow. Wean Levophed. Hep-Lock IV fluids once tube feeds initiated. 2 A sodium bicarb IV push today. EF preserved. Monitor vancomycin levels. Dose to be adjusted for renal function.
[2021-06-06] MEDS: ASPIRIN 300 MG SUPP RECTAL SCH (09:07)
--- NOTE | 2021-06-06 10:15 | P.PN ---
Subjective Progress Note Date: 06/06/21 The patient is seen at bedside and per nurse patient is about same. She continues to moan. Patient is not on any sedation. She is on Norepinephrine since has hypotensive episodes. Today her blood pressure is as low as 86/72. She received dialysis yesterday. Patient had CT head on 06/05/21: It is reported as large left hemispheric subacute infarct which shows increased size compared to the CT scan 3 days ago. No hemorrhage. I do agree there is evolution of the patient's stroke and it is predominately Left MCA territory. Objective - Vital Signs Vital signs: Vital Signs Temp 97.5 F L 06/06/21 08:00 Pulse 130 H 06/06/21 09:15 Resp 20 06/06/21 09:15 BP 86/72 06/06/21 09:15 Pulse Ox 95 06/06/21 09:15 Intake & Output 06/05/21 06/06/21 06/06/21 18:59 06:59 18:59 Intake Total 1280.308 811.411 236.733 Output Total 600 700 Balance 680.308 111.411 236.733 Weight 86.3 kg Intake: IV 636 615 150 0.9NS Pressure BAg 36 15 D5.9 NACL @50ML/HR 600 600 150 Intake, IV Titration 88.308 196.411 26.733 Amount Norepinephrine 32 mg In 88.308 196.411 26.733 Sodium Chloride 0.9% 218 ml @ 0.05 MCG/KG/MIN 1. 805 mls/hr IV .Q24H ON LICENSE OF [facility] Rx#:[id number] Tube Feeding 136 0 0 Hemodialysis 300 Other 120 60 Output: Gastric Drainage 700 Urine 0 0 Hemodialysis 600 Other: Voiding Method Diaper Diaper Incontinent Incontinent # Bowel Movements 1 ABP, PAP, CO, CI - Last Documented Arterial Blood Pressure 94/58 - Exam GENERAL: The patient is lying in bed and is moaning. She does not appear in distress. NEUROLOGICAL: Limited because of her condition. Higher mental function: The patient is comatose but would open her eye to painful stimuli once. She is not following commands or verbalizing. She is only moaning. Cranial nerves: The pupils are round, equal and sluggishly reactive to light. Primary gaze is looking downward or to the left. Has mild right facial weakness. Otherwise could not assess rest of cranial nerves. Motor: The strength could not assess. No jerking of any extremities. Has decrease tone throughout upper. Cerebellum: Could not assess. Sensation: Could not assess light touch. With painful stimuli she would grimace face throughout. WORK-UP: [place] virus PCR was not detected. Ammonia level <9 Lipid panel is triglyceride of 137, cholesterol 105, LDL is 41 and HDL is 36. CT scan of the brain ON 06/02/21 reveals evidence of a left temporoparietal acute infarct. Carotid duplex was reported as no significant stenosis of bilateral ICA. Minimal elevated right ICA systolic velocity. Patient had CT head on 06/05/21: It is reported as large left hemispheric subacute infarct which shows increased size compared to the CT scan 3 days ago. No hemorrhage. I do agree there is evolution of the patient's stroke and it is predominately Left MCA territory. 2-D echo was reported as overlying concentric left ventricular hypertrophy. Ejection fraction of 55-60%. Left atrial size is normal Routine EEG on 06/04/21 is abnormal. The background slowing suggestive of moderate to severe encephalopathy. There is no focal slowing, epileptiform discharges or seizure on the EEG. - Labs CBC & Chem 7: 06/06/21 05:20 06/06/21 05:20 Labs: Abnormal Lab Results - Last 24 Hours (Table) 06/03/21 06/05/21 06/05/21 Range/Units 11:30 02:35 14:41 WBC (3.8-10.6) k/uL RBC (3.80-5.40) m/uL Hgb (11.4-16.0) gm/dL Hct (34.0-46.0) % MCV (80.0-100.0) fL RDW (11.5-15.5) % Plt Count (150-450) k/uL Potassium 3.2 L (3.5-5.1) mmol/L Chloride 118 H (98-107) mmol/L Carbon Dioxide 19 L (22-30) mmol/L Creatinine 2.15 H (0.52-1.04) mg/dL Glucose 163 H (74-99) mg/dL POC Glucose (mg/dL) (75-99) mg/dL Procalcitonin 0.66 H 0.68 H (0.02-0.09) ng/mL 06/05/21 06/05/21 06/06/21 Range/Units 18:24 23:30 05:20 WBC (3.8-10.6) k/uL RBC (3.80-5.40) m/uL Hgb (11.4-16.0) gm/dL Hct (34.0-46.0) % MCV (80.0-100.0) fL RDW (11.5-15.5) % Plt Count (150-450) k/uL Potassium (3.5-5.1) mmol/L Chloride 119 H (98-107) mmol/L Carbon Dioxide 16 L (22-30) mmol/L Creatinine 2.44 H (0.52-1.04) mg/dL Glucose 161 H (74-99) mg/dL POC Glucose (mg/dL) 151 H 123 H (75-99) mg/dL Procalcitonin (0.02-0.09) ng/mL 06/06/21 06/06/21 Range/Units 05:20 05:21 WBC 26.7 H (3.8-10.6) k/uL RBC 3.00 L (3.80-5.40) m/uL Hgb 9.9 L D (11.4-16.0) gm/dL Hct 31.3 L (34.0-46.0) % MCV 104.4 H (80.0-100.0) fL RDW 17.3 H (11.5-15.5) % Plt Count 69 L (150-450) k/uL Potassium (3.5-5.1) mmol/L Chloride (98-107) mmol/L Carbon Dioxide (22-30) mmol/L Creatinine (0.52-1.04) mg/dL Glucose (74-99) mg/dL POC Glucose (mg/dL) 151 H (75-99) mg/dL Procalcitonin (0.02-0.09) ng/mL Microbiology - Last 24 Hours (Table) 06/03/21 11:30 Blood Culture - Preliminary Blood No Growth after 48 hours Assessment and Plan Assessment: Altered mental status due to multifactorial: Probable Septic encephalopathy (suspected catheter associated peritonitis), stroke and a component of metabolic encephalopathy Acute ischemic stroke (left hemisphere but seems predominately left MCA). With symptoms of right facial droop and right hemiplegia and aphasia). No IV TPA since outside the window. Etiology of stroke is embolic in nature. Hypotensive episode---on Norepinephrine. End-stage renal disease and is on dialysis History of essential hypertension History of hypertension During hospital stay has episode of hypotensive Dyslipidemia History of gout Plan: Patient had CT head on 06/05/21: It is reported as large left hemispheric subacute infarct which shows increased size compared to the CT scan 3 days ago. No hemorrhage. I do agree there is evolution of the patient's stroke and it is predominately Left MCA territory. Routine EEG on 06/04/21 is abnormal. The background slowing suggestive of moderate to severe encephalopathy. There is no focal slowing, epileptiform discharges or seizure on the EEG. Patient is on aspirin 300 mg suppository since the patient cannot swallow as well as the has an order of Plavix [address] Carrion. Continue Lipitor 10 mg daily at bedtime Continue neuro checks PT, OT and CUPOLA HOIST OPERATOR are consulted On cardiac monitoring Cardiology is on board and recommend DANIELLE. Nephrology is on board. Patient is getting dialysis during this hospital stay. ID team is on board. Please avoid any hypotensive episodes and will defer management to primary and ICU team. We'll defer the rest of medical management to the ICU in the primary team Please avoid any further hypotensive episodes and we'll defer the management to the primary and IC team. Or DVT prophylaxis will defer the decision to the primary and ICU team. Patient has acute thrombocythemia and for now place on SCD. Upon discharge the patient needs to follow-up with a neurologist as outpatient within 1-2 weeks. Condition: Is Poor. Plan was discussed with the patient's nurse. I also updated the patient's mother who is at bedside, about her neurological condition. She will give patient about 48hours and possibly will consider comfort care after that. But for now patient is FULL CODE. Hasmukh Scott M.D. Neuro-Hospitalist. Time with Patient: Less than 30
--- NOTE | 2021-06-06 11:52 | P.PN ---
Subjective Progress Note Date: 06/06/21 The patient is a 56-year-old female with a known history of end-stage renal disease on dialysis, hypertension, dyslipidemia, hypothyroidism. Patient does not follow with a cyber security systems engineer. Patient is seen in the ICU, she remains unresponsive, lethargic, and is unable to follow commands. Patient continues to have moaning with no signs of acute distress. Patient reamins to be hypotensive and continues on a Levophed drip. Heart rate remains uncontrolled range from 60- 130 this is likely related to sepsis. Patient is to receive hemodialysis yesterday. Patient's CT completed yesterday shows a worsening parietal infarct. Spoke with neurology about possible DANIELLE. At this time DANIELLE is not recommended due to patient's current clinical state. The patient undergoing a DANIELLE at this time would not change her plan of care. Neurology is in agreement. Diagnostics: Vital signs: Blood pressure 86/72, heart rate 130, respirations 18, 100% on 2 L nasal cannula, afebrile Labs reviewedWBC 26.7, hemoglobin 9.9, platelets 69, potassium 5.1, BUN 13, Cr 2.44, magnesium 1.9 Objective - Vital Signs Vital signs: Vital Signs Temp 97.5 F L 06/06/21 08:00 Pulse 130 H 06/06/21 09:15 Resp 20 06/06/21 09:15 BP 86/72 06/06/21 09:15 Pulse Ox 95 06/06/21 09:15 Intake & Output 06/05/21 06/06/21 06/06/21 18:59 06:59 18:59 Intake Total 1280.308 811.411 236.733 Output Total 600 700 Balance 680.308 111.411 236.733 Weight 86.3 kg Intake: IV 636 615 150 0.9NS Pressure BAg 36 15 D5.9 NACL @50ML/HR 600 600 150 Intake, IV Titration 88.308 196.411 26.733 Amount Norepinephrine 32 mg In 88.308 196.411 26.733 Sodium Chloride 0.9% 218 ml @ 0.05 MCG/KG/MIN 1. 805 mls/hr IV .Q24H [facility] Rx#:[id number] Tube Feeding 136 0 0 Hemodialysis 300 Other 120 60 Output: Gastric Drainage 700 Urine 0 0 Hemodialysis 600 Other: Voiding Method Diaper Diaper Incontinent Incontinent # Bowel Movements 1 ABP, PAP, CO, CI - Last Documented Arterial Blood Pressure 94/58 - Exam PHYSICAL EXAM: VITAL SIGNS: Reviewed. GENERAL: Well-developed in no acute distress. HEENT: Head is normocephalic. Pupils are equal, round. Sclerae anicteric. Mucous membranes of the mouth are moist. NECK: Supple. No JVD or thyromegaly RESPIRATORY: Respirations even and unlabored. Lungs diminished to auscultation bilaterally. CARDIO: Regular rate and rhythm. S1 and S2 heard. No murmur or gallops. EXTREMITIES: Normal range of motion. No clubbing or cyanosis. Peripheral pulses intact. Generalized edema NEURO: Orientated x0 - Labs CBC & Chem 7: 06/06/21 05:20 06/06/21 05:20 Labs: Abnormal Lab Results - Last 24 Hours (Table) 06/03/21 06/05/21 06/05/21 Range/Units 11:30 02:35 14:41 WBC (3.8-10.6) k/uL RBC (3.80-5.40) m/uL Hgb (11.4-16.0) gm/dL Hct (34.0-46.0) % MCV (80.0-100.0) fL RDW (11.5-15.5) % Plt Count (150-450) k/uL Potassium 3.2 L (3.5-5.1) mmol/L Chloride 118 H (98-107) mmol/L Carbon Dioxide 19 L (22-30) mmol/L Creatinine 2.15 H (0.52-1.04) mg/dL Glucose 163 H (74-99) mg/dL POC Glucose (mg/dL) (75-99) mg/dL Procalcitonin 0.66 H 0.68 H (0.02-0.09) ng/mL 06/05/21 06/05/21 06/06/21 Range/Units 18:24 23:30 05:20 WBC (3.8-10.6) k/uL RBC (3.80-5.40) m/uL Hgb (11.4-16.0) gm/dL Hct (34.0-46.0) % MCV (80.0-100.0) fL RDW (11.5-15.5) % Plt Count (150-450) k/uL Potassium (3.5-5.1) mmol/L Chloride 119 H (98-107) mmol/L Carbon Dioxide 16 L (22-30) mmol/L Creatinine 2.44 H (0.52-1.04) mg/dL Glucose 161 H (74-99) mg/dL POC Glucose (mg/dL) 151 H 123 H (75-99) mg/dL Procalcitonin (0.02-0.09) ng/mL 06/06/21 06/06/21 Range/Units 05:20 05:21 WBC 26.7 H (3.8-10.6) k/uL RBC 3.00 L (3.80-5.40) m/uL Hgb 9.9 L D (11.4-16.0) gm/dL Hct 31.3 L (34.0-46.0) % MCV 104.4 H (80.0-100.0) fL RDW 17.3 H (11.5-15.5) % Plt Count 69 L (150-450) k/uL Potassium (3.5-5.1) mmol/L Chloride (98-107) mmol/L Carbon Dioxide (22-30) mmol/L Creatinine (0.52-1.04) mg/dL Glucose (74-99) mg/dL POC Glucose (mg/dL) 151 H (75-99) mg/dL Procalcitonin (0.02-0.09) ng/mL Microbiology - Last 24 Hours (Table) 06/03/21 11:30 Blood Culture - Preliminary Blood No Growth after 48 hours Assessment and Plan Assessment: Sinus tachycardia, likely related to sepsis, dehydration, and acute CVA Hypotension likely related to sepsis, Hypovolemia/dehydration Acute right frontal parietal CVA Thrombocytopenia Metabolic encephalopathy History of hypertension Hyperlipidemia Hypothyroidism Plan: Continue on Levophed and titrate blood pressure tolerates Continue with all other current medications Continue telemetry monitoring Further recommendations based on clinical course The above impression and plan of care have been discussed and directed by the signing physician. Re Tapia, nurse practitioner, acting as scribe for signing physician.
[2021-06-06 11:57] LABS: Glucose,Whole Blood 121 mg/dL (75-99)
--- NOTE | 2021-06-06 12:02 | P.PN ---
Subjective Progress Note Date: 06/06/21 Principal diagnosis: Acute peritonitis, sepsis, and possible septic shock. 06/01/2023 patient's condition is stable. The patient is hemodynamically improved and the patient is able to support her own blood pressure. The patient is currently running away cervical os 12.8 with a hemoglobin of 9.8. The BUN is at 33 with a creatinine of 4.5. Sodium is at 133. The peritoneal fluid culture returns supervisor to be positive for enterococcus group D and earlier culture was positive for Enterococcus faecalis. The patient remains on vancomycin being administered IV. The patient's would have the CAPD catheter removed by general surgery and have a dialysis catheter inserted. Blood pressure is stable for now. The patient's had hydrocortisone level that was elevated and the hydrocortisone IV can be discontinued. No fever. No other significant events otherwise. The patient is calm and comfortable and there are no signs of any respiratory distress and the patient is currently on room air oxygen. Patient was evaluated today on 06/03/21, patient has been followed by Dr. Nielsen on 06/01. Apparently the patient was seen initially on consultation for hypotension, sepsis and septic shock. Patient presented initially with peritonitis. Patient used to be on peritoneal dialysis, and I believe she developed peritoneal dialysis catheter sepsis and peritonitis. A shunt has been treated and evaluated by multiple consultants. Patient was also seen by surgery and she underwent peritoneal dialysis catheter removal. And she was treated all along by infectious disease with multiple antibiotics for her abdominal sepsis/peritonitis. Dr. Nielsen signed off the case, however he was be notified today that the patient needed to be transferred to the ICU and she was developing hypotension again. I evaluated the patient shortly after she was transferred to the ICU, recommended fluid boluses, and I recommended norepinephrine to be started on this patient if she remains hypotensive. Patient is being followed by many consultants including nephrology for her chronic kidney disease. She had a left groin hemodialysis catheter, and I believe she is scheduled to undergo dialysis today. May require norepinephrine to perform hemodialysis. I was able to establish a left groin triple lumen catheter placement, without any complications. I have recommended more fluid boluses and recommended norepinephrine to be started and to continue antibiotics. Serum cortisol level was ordered, and if lobe may consider stress doses of hydrocortisone. Labs today have not been drawn mostly because of the patient had no venous access. Somewhat along the line I believe vascular yonatan neville was also consulted on this patient for vascular access. At any rate she does have now vascular access, she is in the ICU, and she remains on antibiotics. The patient has been moaning and groaning, and she does not seem to be appropriate. She is confused. But not in respiratory distress, she is on 2 L nasal cannula. Patient was evaluated by neurology yesterday, and she had a CT of the brain, findings are suspicious for acute ischemic left frontal and parietal lobe with no midline shift. Patient was reevaluated today on 06/04/2021, remains in the ICU, remains relatively hypotensive, patient is still requiring norepinephrine at 0.18 mcg/kg/m, she received fluid boluses yesterday. She underwent hemodialysis. Patient is being treated for positive bacteremia secondary to Enterococcus faecalis. She remains on Zosyn. Today I recommended a nasogastric tube and recommended that she gets enteral feeding. Patient had a relatively normal electrolytes, however her creatinine is 2.60. WBC count remains high at 28.4 hemoglobin is 9.2 hematocrit 29.6. And she is presently on 2 L nasal cannula. Patient continues to have intermittent episodes of moaning and groaning, but she does not have any purposeful responses. Today I also recommended the patient gets a PICC line placed, and hopefully we can discontinue the left groin central line was a PICC line is established. In the meantime we have a good vascular access to this patient. Again his CT of the brain suspicious for acute left frontal and left parietal ischemic stroke. Patient is being followed by neurology. No chest x-ray was done today, but her chest x-ray from yesterday showed no evidence of acute pulmonary process. Reevaluated today on 06/05/2021, patient remains in the ICU, she is hemodynamically unstable, she is requiring norepinephrine at 0.3 mcg/kg/m. Patient is on room air, and her O2 saturation is 99%, blood pressure is 74/42, patient is receiving hemodialysis today via a right femoral dialysis catheter. Patient remains unresponsive, she is moaning and groaning, does not seem to be in any respiratory distress. She is on Zosyn, and vancomycin. she is also on tube feeds using Nepro at 17 mL per hour. Patient has been seen by many consultants including neurology for her mental status change, considering repeat CT of the head on this patient. Patient is also scheduled to have a PICC line t elisha, she is on D5 0.9 at 50 mL per hour. And again she is being dialyzed today. Patient is being treated for sepsis and septic shock. She remains on Zosyn. Continues to have leukocytosis with WBC count of 24.7 hemoglobin 8.3. Creatinine today is 2.96. Blood sugar is 92. Reevaluated today on 06/06/2021, remains in the ICU, remains hypotensive, she is requiring norepinephrine at 0.28 mcg/kg/m patient is only on few liters nasal cannula, IV fluid is at KVO, patient does make much urine, she is on hemodialysis. Mental status is basically about the same, continues to moan and groan, and no purposeful responses noted. Repeat CT of the head on 06/05 showed large left hemispheric subacute infarct increased in size compared to previous CT few days ago. Howe by neurology that the patient is having evolution of the stroke, and it is predominantly in the left middle cerebral artery territory. Patient is comatose, she does open her eyes to painful stimuli, does not follow any commands, does not verbalize. She does moan. She has right facial weakness, and she has decreased muscle tone. EEG done on 06/04 showed background slowing suggestive of moderate to severe encephalopathy. Evidence of epileptiform discharges or seizures. Labs today showed leukocytosis with WBC count of 26.7 hemoglobin 9.9. Platelets are 69,000. Basic metabolic profile is relatively normal BUN is 13 and creatinine up to 2.44. Patient is on hemodialysis, but no plans to dialyze the patient today. Patient remains on antibiotics for her peritoneal catheter related sepsis and peritonitis. Objective - Vital Signs Vital signs: Vital Signs Temp 97.5 F L 06/06/21 08:00 Pulse 73 06/06/21 11:30 Resp 16 06/06/21 11:30 BP 114/68 06/06/21 11:30 Pulse Ox 98 06/06/21 11:30 Intake & Output 06/05/21 06/06/21 06/06/21 18:59 06:59 18:59 Intake Total 1280.308 811.411 360.651 Output Total 600 700 Balance 680.308 111.411 360.651 Weight 86.3 kg Intake: IV 636 615 250 0.9NS Pressure BAg 36 15 D5.9 NACL @50ML/HR 600 600 250 Intake, IV Titration 88.308 196.411 50.651 Amount Norepinephrine 32 mg In 88.308 196.411 50.651 Sodium Chloride 0.9% 218 ml @ 0.05 MCG/KG/MIN 1. 805 mls/hr IV .Q24H [facility] Rx#:[id number] Tube Feeding 136 0 0 Hemodialysis 300 Other 120 60 Output: Gastric Drainage 700 Urine 0 0 Hemodialysis 600 Other: Voiding Method Diaper Diaper Incontinent Incontinent # Bowel Movements 1 1 ABP, PAP, CO, CI - Last Documented Arterial Blood Pressure 94/58 - Exam Gen: This is a 56-year-old obese female resting in the ICU bed, remains on room air this morning. Patient continues to moan, unresponsive to any stimuli except she does open her eyes. HEENT: Head is atraumatic, normocephalic. Pupils equal, round. Sclerae is anicteric. NECK: Supple. No JVD. No lymphadenopathy. No thyromegaly. LUNGS: Symmetrical chest expansion, diminished breath sounds at the bases. HEART: Regular rate and rhythm. No murmur. ABDOMEN: Soft. Bowel sounds are present. Patient has a hemodialysis catheter in the right groin and a triple-lumen catheter in the left groin. EXTREMITIES: No pedal edema. No calf tenderness. scar on the left knee from previous surgery. NEUROLOGICAL: Opens eyes only, but does not follow any instructions. Continues to moan. Pupils are sluggish. Patient has downward gaze to the left, and right-sided weakness. - Labs CBC & Chem 7: 06/06/21 05:20 06/06/21 05:20 Labs: Abnormal Lab Results - Last 24 Hours (Table) 06/05/21 06/05/21 06/05/21 Range/Units 02:35 14:41 18:24 WBC (3.8-10.6) k/uL RBC (3.80-5.40) m/uL Hgb (11.4-16.0) gm/dL Hct (34.0-46.0) % MCV (80.0-100.0) fL RDW (11.5-15.5) % Plt Count (150-450) k/uL Potassium 3.2 L (3.5-5.1) mmol/L Chloride 118 H (98-107) mmol/L Carbon Dioxide 19 L (22-30) mmol/L Creatinine 2.15 H (0.52-1.04) mg/dL Glucose 163 H (74-99) mg/dL POC Glucose (mg/dL) 151 H (75-99) mg/dL Procalcitonin 0.68 H (0.02-0.09) ng/mL 06/05/21 06/06/21 06/06/21 Range/Units 23:30 05:20 05:20 WBC 26.7 H (3.8-10.6) k/uL RBC 3.00 L (3.80-5.40) m/uL Hgb 9.9 L D (11.4-16.0) gm/dL Hct 31.3 L (34.0-46.0) % MCV 104.4 H (80.0-100.0) fL RDW 17.3 H (11.5-15.5) % Plt Count 69 L (150-450) k/uL Potassium (3.5-5.1) mmol/L Chloride 119 H (98-107) mmol/L Carbon Dioxide 16 L (22-30) mmol/L Creatinine 2.44 H (0.52-1.04) mg/dL Glucose 161 H (74-99) mg/dL POC Glucose (mg/dL) 123 H (75-99) mg/dL Procalcitonin (0.02-0.09) ng/mL 06/06/21 Range/Units 05:21 WBC (3.8-10.6) k/uL RBC (3.80-5.40) m/uL Hgb (11.4-16.0) gm/dL Hct (34.0-46.0) % MCV (80.0-100.0) fL RDW (11.5-15.5) % Plt Count (150-450) k/uL Potassium (3.5-5.1) mmol/L Chloride (98-107) mmol/L Carbon Dioxide (22-30) mmol/L Creatinine (0.52-1.04) mg/dL Glucose (74-99) mg/dL POC Glucose (mg/dL) 151 H (75-99) mg/dL Procalcitonin (0.02-0.09) ng/mL Microbiology - Last 24 Hours (Table) 06/03/21 11:30 Blood Culture - Preliminary Blood No Growth after 48 hours Assessment and Plan Assessment: Impression: Hypotension, most likely secondary to sepsis and septic shock. Secondary to peritoneal dialysis catheter sepsis. And peritonitis. Acute metabolic encephalopathy Acute CVA involving the left middle cerebral artery territory. End-stage renal disease, on peritoneal dialysis in the past, and now she is on hemodialysis. Benign essential hypertension. History of hypothyroidism. Dyslipidemia. History of gout. Chronic anemia of chronic disease. Severe dehydration Electrolytes imbalance, resolving. Recommendation: Continue to monitor the patient in the ICU as long as she is requiring norepinephrine Continue antibiotics. Patient is presently on Zosyn and vancomycin. Continue norepinephrine and titrate accordingly. Continue hemodialysis. Continue enteral feeding. Patient is presently on Nepro. Continue GI and DVT prophylaxis. Remains critically ill and prognosis is extremely poor. Neurology approached family about CODE STATUS, remains full code at this point Patient is critically ill, critical care time is over 30 Time with Patient: Greater than 30
[2021-06-06] MEDS: ONDANSETRON 4 MG/2 ML VIAL IVP PRN ×2 (12:27→23:17)
--- NOTE | 2021-06-06 14:12 | P.PN ---
Subjective Progress Note Date: 06/06/21 HISTORY OF PRESENT ILLNESS 56-year-old female with developmental delay who had history of end-stage renal disease on peritoneal dialysis, history of hypertension, hyperlipidemia, h ypothyroidism who had an infected left knee late last year had surgery and ended up going to rehab for long time was home for the last few weeks when patient developed to have significant change mental status with decreased oral intake with worsening symptoms overall for the last few days have been having fatigue tiredness not been eating or drinking no now moving. Also her dialysis has been getting quite bit worse patient apparently will be switch to hemodialysis was told need workup for fistula graft the left arm for possible hemodialysis. Family ended up bringing her to demurs department at [facility] where was seen and evaluated surprisingly found to have mildly elevated troponin with severe electrolyte imbalance with potassium of 2.1 only. Chest x-ray did not show any infection just atelectasis, COVID-19 was negative at the time. Patient was started on gentle hydration will be admitted to the hospital be seen nephrology and vascular, CK with troponin 3 will be done and patient will be seen cardiology further intervention after doing an echocardiogram will depend on the result. 05/26: Patient states that she is feeling better. No complaints or concerns. Plan is for patient to change from peritoneal dialysis to hemodialysis. Consult for nephrology and vascular surgery in place. Patient remains afebrile, heart rate 108, respirations 18, blood pressure 105/71 pulse ox 90% on room air. WC 10.8, hemoglobin 11.3, sodium 133, potassium 3.1, BUN 44, creatinine 5.15. 05/27, patient is currently nothing by mouth, for planned Port-A-Cath placement today, for the transfusion hemodialysis treatment, from a peritoneal dialysis regimen. Patient has dry mouth, no nausea no vomiting, no chest pain no shortness of breath, vitals are stable, 118/64, no fever, T-max of 97.0, heart rate is in the 70s. Pulse ox room air 98% 05/28: Patient is seen today on the cardiac stepdown unit. She is receiving intraperitoneal antibiotics. Patient is receiving regular CAPD managed by nephrology. Nephrology is planning on 2-3 weeks of antibiotic therapy. Tonsils been added for Dr. Doran 8. 05/29: Throughout the night, blood pressure was low down to 68/50, CAPD was held, patient received 500 mL bolus last evening a repeat this morning and we are ordering another 250 ML's now. Blood pressure has recovered somewhat at 90/60. Cortisol level was ordered and patient will be started on hydrocortisone 100 mg IV every 8 hours. Ensure clear and beneprotein added. Sodium was 132, potassium 3.0 will be replaced, BUN 33 creatinine 4.34, blood sugar 107. The plan to transfer patient to ICU but at this point, hold any transfer and continue current treatment. Dr. Randhawa has seen and reviewed patient, blood cultures and inflammatory markers pending. 05/30: Patient is scheduled to have CAPD catheter removed with Dr. Somers and have dialysis by Dr. Navarro. Blood pressures are improved. Hydrocortisone discontinued as cortisol level was at 30. Blood pressure 103/72, afebrile, heart rate in the 60s, pulse ox 100% on room air. 05/31: Patient had CAPD catheter removed and she is scheduled for dialysis catheter placement today with Dr. Navarro. Patient will be continued on hemodialysis with plan for subacute rehab for discharge once chair time has been obtained for dialysis. Patient is afebrile, heart rate 77, blood pressure 95/55, pulse ox 98% on room air. 06/01: Right common femoral approach for hemodialysis access, was placed on 05/[address] Navarro, antibiotic needs to be finalized by Dr. Randhawa, for peritonitis caused by the peritoneal catheter which has been discontinued also on 05/31 2021. Anticipate discharge to subacute rehab on Thursday, brother is at bedside today, updated regarding treatment plan, no fever no chills, patient has been drowsy today, most likely secondary to pain meds, or lack of sleep. Feedings are minimal today, and is being fed by the brother without any difficulties. No fevers, no aspiration 06/02: patient is seen with the family members today, patient's moaning groaning, starting at9:30 at night, and was noted to have changes in mentationpatient cannot verbally verbalize what is going on last night, do not improve with small dose of Dilaudid 0.5 mg to control the femoral pain, CAT scan of the brain was ordered, 9:33 PM, age indeterminate right frontal lobe CVA with no comparison previous CT, there is a focus of patricio white matter differentiation loss within the right frontal lobe, no interparenchymal hemorrhage or mass effect,, concentration for MRI if clinically warranted, 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 Carrion neurology, for whichanother stat CT was placed,aunt 10 AM, there is an area of diminished attenuation with sulcal effacement involving the left frontal parietal lobe suggestive of acute ischemia, diminished attenuation in the high left parietal region, also suspicious for recent ischemia,code stroke was calledpatient is placed on aspirin 81 mg daily, and Plavix 75 mg daily. However patient cannot take any oral medications at this time, we started aspirin suppository, 1025 mg, until oral route is established. Discussed this with the mother, there was no plans for a PEG feeding at one time she had similar problems for which she has not eaten for one month, and they have used and a NG-tube or dophoff feeding in past it looks like the femoral cath is only a temporary way of providing dialysis, and possibly would return to peritoneal dialysis once cleared of infection.when seen today, patient cannot follow commands, can move ice, small facial droop right side,and not follow verbal commands, painstimuli was given to elicit a motor response, withdraws on the left, no withdrawal of arms on the right side. There is no localization of painful stimuli, and left lower extremity, no movement or evidence of sensation on the right side.blood cultures, no growth 96 hours,IV access to right femoral catheter, blood pressure 97/62 to 117/73. 06/03: Patient was transferred into the intensive care unit due to hypotension and tachycardia status post 1.5 L fluid bolus with plan to start levophed. The line has been placed by pulmonary medicine. She has been seen by cardiology and echocardiogram was ordered. No sign of atrial fibrillation. Nephrology is planning for hemodialysis today. Ankle myosin level XLIII.3. Cortisol level XXXVI and patient has been started on IV hydrocortisone. She remains unresponsive since Thursday evening and followed by nephrology left cerebral artery infarct. Echocardiogram shows EF 55-60% with borderline concentric left ventricular hypertrophy, mild aortic valve sclerosis, mild mitral calcification. Carotid ultrasound reveals no significant stenosis in the bilateral ICAs. Chest x-ray reveals right-sided catheter. No acute pulmonary process. 06/04: Patient remains in the intensive care unit. She is on levo fed which is trying to be weaned down. She is NG tube in place to start tube feedings. She received hemodialysis yesterday and none today. Patient is followed by neurology and is scheduled for EEG today. Patient is followed by multiple consultants. Vascular will be placing a PICC line. Patient is followed by site director, Dr. Somers , cardiology, as well. Patient is continued on IV antibiotics in the form of Zosyn and vancomycin managed by Dr. Randhawa. 06/05: Patient remains in the intensive care unit. She is receiving hemodialysis today and is on norepinephrine. Patient is unresponsive, unable to take any oral intake. Repeat blood work reveals WBC 24.7, hemoglobin 8.3, platelet count 75. Potassium 3.4, creatinine 2.96. Blood sugars are running between 92 and 172. Vancomycin 22.4. C-reactive protein 3.1. Phosphorus 2.7, magnesium 1.9. Mom is at bedside and updated regarding condition and prognosis. She relates that she wishes to have everything done for her daughter. Code status clarified to full code. General surgery is following on an as-needed basis. Vascular is following and tunneled PICC line catheter placement is canceled due to hypotension. Patient is also followed by nephrology, neurology, site director. Solu-Cortef decrease to 50 mg every 8 hours. Prognosis is guarded. 06/06: Patient remains unresponsive. She is had repeat CAT scan yesterday reported large left hemispheric subacute infarct which shows increasing size compared to previous CAT scan and this is felt to be evolution of the patient's stroke predominantly in the left MCA territory. Patient is followed closely by neurology. Cardiology is following and DANIELLE is not recommended due to patient's current clinical status and would not change her clinical course. Patient is currently on aspirin 300 mg rectal, Lipitor 40 mg, Plavix 75 mg daily. She is followed by nephrology and continued on dialysis. Patient remains on norepinephrine and attempting to wean off. Patient's mother is at the bedside and discussed results of CAT scan, patient's current condition and prognosis. At this time, she may wish to pursue PEG tube which has been cleared for placement by Dr. Randhawa. Patient would like to discuss with 2 daughters. REVIEW OF SYSTEMS Able to obtain due to mental status changes. PHYSICAL EXAMINATION Gen: This is a 56-year-old obese female resting in the ICU bed. Mother is at bedside. patient moans. HEENT: Head is atraumatic, normocephalic. Pupils equal, round. Sclerae is anicteric. NECK: Supple. No JVD. No lymphadenopathy. No thyromegaly. LUNGS: decreased breath some bilaterally with rhonchi no crackles or wheezes. HEART: Regular rate and rhythm. No murmur. ABDOMEN: Soft. Bowel sounds are present. CAPD catheter was removed. EXTREMITIES: No pedal edema. No calf tenderness. scar on the left knee from previous surgery. NEUROLOGICAL: Patient does not arouse to verbal stimuli. ASSESSMENT AND PLAN 1. Metabolic encephalopathy secondary to PD catheter-associated peritonitis. Patient continued on Zosyn and vancomycin, pharmacy dosing, consult with Dr. Randhawa appreciated. CAPD catheter removed 05/31 [address] Navarro dialysis catheter 05/31 2021 2. 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 Neurology is following, continue aspirin 300 mg rectally, Lipitor increased to 40 mg at bedtime, continue Plavix 75 mg daily. Patient on NG tube feedings. Elevated troponin and possible non-ST ME ruled out by cardiology. Cardiology consult appreciated. Septic shock requiring vasopressor. Continue management in the intensive care unit. Continue Solu-Cortef 50 mg every 8 hours. Hypothyroidism: Continue patient on levothyroxine 112 g daily. Hyperlipidemia: Has been on atorvastatin 10 mg a day. Chronic gout: Patient has been on Zyloprim 100 mg daily. Electrolyte imbalance with severe hypokalemia as well as replacement. Chronic anemia of chronic renal disease. Continue Aranesp. Infected left knee post surgery patient left knee is non-ambulatory. status post antibiotic spacer in place. Severe dehydration Moderate protein calorie malnutrition. Continue tube feedings by NG tube. End-stage renal disease, previously on CAPD, patient transitioned to hemodialysis. GI prophylaxis: Patient be on Protonix. DVT prophylaxis: Knee-high ANDRE hose and Venodyne boots if needed subcu heparin will be done. COVID-19 testing.was negative. Prognosis is guarded Status: Full code Discharge plan:subacute rehab at [facility] Impression and plan of care have been directed as dictated by the signing physician. Kianna Don nurse practitioner acting as scribe for signing physician. Objective - Vital Signs Vital signs: Vital Signs Temp 97.5 F L 06/06/21 08:00 Pulse 65 06/06/21 10:15 Resp 20 06/06/21 10:15 BP 97/65 06/06/21 10:15 Pulse Ox 100 06/06/21 10:15 Intake & Output 06/05/21 06/06/21 06/06/21 18:59 06:59 18:59 Intake Total 1280.308 811.411 286.733 Output Total 600 700 Balance 680.308 111.411 286.733 Weight 86.3 kg Intake: IV 636 615 200 0.9NS Pressure BAg 36 15 D5.9 NACL @50ML/HR 600 600 200 Intake, IV Titration 88.308 196.411 26.733 Amount Norepinephrine 32 mg In 88.308 196.411 26.733 Sodium Chloride 0.9% 218 ml @ 0.05 MCG/KG/MIN 1. 805 mls/hr IV .Q24H [facility] Rx#:[id number] Tube Feeding 136 0 0 Hemodialysis 300 Other 120 60 Output: Gastric Drainage 700 Urine 0 0 Hemodialysis 600 Other: Voiding Method Diaper Diaper Incontinent Incontinent # Bowel Movements 1 ABP, PAP, CO, CI - Last Documented Arterial Blood Pressure 94/58 - Labs CBC & Chem 7: 06/06/21 05:20 06/06/21 05:20 Labs: Abnormal Lab Results - Last 24 Hours (Table) 06/03/21 06/05/21 06/05/21 Range/Units 11:30 02:35 14:41 WBC (3.8-10.6) k/uL RBC (3.80-5.40) m/uL Hgb (11.4-16.0) gm/dL Hct (34.0-46.0) % MCV (80.0-100.0) fL RDW (11.5-15.5) % Plt Count (150-450) k/uL Potassium 3.2 L (3.5-5.1) mmol/L Chloride 118 H (98-107) mmol/L Carbon Dioxide 19 L (22-30) mmol/L Creatinine 2.15 H (0.52-1.04) mg/dL Glucose 163 H (74-99) mg/dL POC Glucose (mg/dL) (75-99) mg/dL Procalcitonin 0.66 H 0.68 H (0.02-0.09) ng/mL 06/05/21 06/05/21 06/06/21 Range/Units 18:24 23:30 05:20 WBC (3.8-10.6) k/uL RBC (3.80-5.40) m/uL Hgb (11.4-16.0) gm/dL Hct (34.0-46.0) % MCV (80.0-100.0) fL RDW (11.5-15.5) % Plt Count (150-450) k/uL Potassium (3.5-5.1) mmol/L Chloride 119 H (98-107) mmol/L Carbon Dioxide 16 L (22-30) mmol/L Creatinine 2.44 H (0.52-1.04) mg/dL Glucose 161 H (74-99) mg/dL POC Glucose (mg/dL) 151 H 123 H (75-99) mg/dL Procalcitonin (0.02-0.09) ng/mL 06/06/21 06/06/21 Range/Units 05:20 05:21 WBC 26.7 H (3.8-10.6) k/uL RBC 3.00 L (3.80-5.40) m/uL Hgb 9.9 L D (11.4-16.0) gm/dL Hct 31.3 L (34.0-46.0) % MCV 104.4 H (80.0-100.0) fL RDW 17.3 H (11.5-15.5) % Plt Count 69 L (150-450) k/uL Potassium (3.5-5.1) mmol/L Chloride (98-107) mmol/L Carbon Dioxide (22-30) mmol/L Creatinine (0.52-1.04) mg/dL Glucose (74-99) mg/dL POC Glucose (mg/dL) 151 H (75-99) mg/dL Procalcitonin (0.02-0.09) ng/mL Microbiology - Last 24 Hours (Table) 06/03/21 11:30 Blood Culture - Preliminary Blood No Growth after 48 hours
--- NOTE | 2021-06-06 16:05 | P.PN ---
Subjective Progress Note Date: 06/06/21 Patient seen and examined at this time. Remains on high levels of pressor support. Remains unresponsive. Objective - Vital Signs Vital signs: Vital Signs Temp 97.5 F L 06/06/21 12:00 Pulse 111 H 06/06/21 14:30 Resp 18 06/06/21 14:30 BP 107/76 06/06/21 14:30 Pulse Ox 100 06/06/21 14:30 Intake & Output 06/05/21 06/06/21 06/06/21 18:59 06:59 18:59 Intake Total 1280.308 811.411 427.689 Output Total 600 700 Balance 680.308 111.411 427.689 Weight 86.3 kg Intake: IV 636 615 250 0.9NS Pressure BAg 36 15 D5.9 NACL @50ML/HR 600 600 250 Intake, IV Titration 88.308 196.411 117.689 Amount Dextrose 5%-0.9% NaCl 1, 60 000 ml @ 20 mls/hr IV . Q24H [facility] Rx#:[id number] Norepinephrine 32 mg In 88.308 196.411 57.689 Sodium Chloride 0.9% 218 ml @ 0.05 MCG/KG/MIN 1. 805 mls/hr IV .Q24H [facility] Rx#:[id number] Tube Feeding 136 0 0 Hemodialysis 300 Other 120 60 Output: Gastric Drainage 700 Urine 0 0 Hemodialysis 600 Other: Voiding Method Diaper Diaper Incontinent Incontinent # Bowel Movements 1 1 ABP, PAP, CO, CI - Last Documented Arterial Blood Pressure 94/58 - Exam Gen. is a chronically ill-appearing female in no acute distress. Not responding to commands. All access sites for catheters appear clean and dry. - Labs CBC & Chem 7: 06/06/21 05:20 06/06/21 05:20 Labs: Abnormal Lab Results - Last 24 Hours (Table) 06/05/21 06/05/21 06/06/21 Range/Units 18:24 23:30 05:20 WBC (3.8-10.6) k/uL RBC (3.80-5.40) m/uL Hgb (11.4-16.0) gm/dL Hct (34.0-46.0) % MCV (80.0-100.0) fL RDW (11.5-15.5) % Plt Count (150-450) k/uL Chloride 119 H (98-107) mmol/L Carbon Dioxide 16 L (22-30) mmol/L Creatinine 2.44 H (0.52-1.04) mg/dL Glucose 161 H (74-99) mg/dL POC Glucose (mg/dL) 151 H 123 H (75-99) mg/dL 06/06/21 06/06/21 06/06/21 Range/Units 05:20 05:21 11:55 WBC 26.7 H (3.8-10.6) k/uL RBC 3.00 L (3.80-5.40) m/uL Hgb 9.9 L D (11.4-16.0) gm/dL Hct 31.3 L (34.0-46.0) % MCV 104.4 H (80.0-100.0) fL RDW 17.3 H (11.5-15.5) % Plt Count 69 L (150-450) k/uL Chloride (98-107) mmol/L Carbon Dioxide (22-30) mmol/L Creatinine (0.52-1.04) mg/dL Glucose (74-99) mg/dL POC Glucose (mg/dL) 151 H 121 H (75-99) mg/dL Microbiology - Last 24 Hours (Table) 06/03/21 11:30 Blood Culture - Preliminary Blood No Growth after 72 hours Assessment and Plan Assessment: Metabolic encephalopathy secondary to peritoneal dialysis catheter associated infection, post removal End-stage renal disease on hemodialysis Acute frontoparietal CVA with right hemiplegia and aphasia Hypotension Need for IV access Plan: At this point given the overall patient instability I do not believe she would benefit from going to the [facility] for procedure. Currently she has acceptable access in her femoral in the form of a femoral central line. If next 2 days she has decreasing pressor requirements and is able to tolerate transfer to undergo a tunneled PICC line, do not believe we should undergo a traditional PICC line if at all possible to try to spare the subclavian vein however if the patient continues to have issue, this may be the only current resolution. Discussed with critical care. Continue to monitor. Poor prognosis overall
[2021-06-06 18:07] LABS: Glucose,Whole Blood 109 mg/dL (75-99)
[2021-06-06] MEDS: ATORVASTATIN 40 MG TAB PO SCH (23:17)
[2021-06-06] MEDS: SERTRALINE 25 MG TAB PO SCH (23:17)
[2021-06-06 23:18] LABS: Glucose,Whole Blood 125 mg/dL (75-99)
[2021-06-07] MEDS: PIPERACILLIN-TAZOBACTAM 3.375 GM in SODIUM CHLORIDE 0.9% 100 ML IVPB SCH ×2 (03:55→15:48)
[2021-06-07] MEDS: INSULIN ASPART (NovoLOG) 100 UNIT/ML VIAL SQ SCH ×3 (05:25→18:12)
[2021-06-07 05:26] LABS: Glucose,Whole Blood 129 mg/dL (75-99)
[2021-06-07] MEDS: ONDANSETRON 4 MG/2 ML VIAL IVP PRN ×2 (06:24→20:02)
[2021-06-07] MEDS: MIDODRINE 5 MG TAB PO SCH ×3 (06:49→18:11)
[2021-06-07] MEDS: LEVOTHYROXINE 112 MCG TAB PO SCH (06:49)
[2021-06-07] MEDS: HYDROCORTISONE SUCCINATE 100 MG/2 ML VIAL IV SCH ×2 (08:08→15:48)
[2021-06-07] MEDS: MAGNESIUM OXIDE 400 MG TAB PO SCH (08:08)
[2021-06-07] MEDS: PANTOPRAZOLE 40 MG/10 ML VIAL IVP SCH (08:08)
[2021-06-07] MEDS: allopurinoL 100 MG TAB PO SCH (08:08)
[2021-06-07] MEDS: CLOPIDOGREL 75 MG TAB PO SCH (08:08)
[2021-06-07] MEDS: FAMOTIDINE 20 MG TAB PO SCH (08:08)
[2021-06-07] MEDS: ASPIRIN 300 MG SUPP RECTAL SCH (08:08)
[2021-06-07] MEDS: FOLIC ACID-VIT B COMPLEX-VIT C 1 CAP PO SCH (08:09)
--- NOTE | 2021-06-07 08:25 | P.PN ---
Subjective Patient is seen in follow-up for end-stage renal disease. She is maintained hemodialysis. PD catheter was removed due to resistant peritonitis. On steroids and midodrine. Also on Levophed. Not tolerating oral intake. Vital signs - on vasopressor support. HEENT: Head exam is unremarkable. NGT noted. LUNGS: Breath sounds decreased. HEART: Rate and Rhythm are regular. ABDOMEN: Soft, no distention. EXTREMITITES: 1+ edema. Objective - Vital Signs Vital signs: Vital Signs Temp 97.8 F 06/06/21 16:00 Pulse 76 06/07/21 07:00 Resp 10 L 06/07/21 07:00 BP 99/74 06/07/21 07:00 Pulse Ox 98 06/07/21 07:00 Intake & Output 06/06/21 06/07/21 06/07/21 18:59 06:59 18:59 Intake Total 757.515 485.266 27 Output Total 200 Balance 557.515 485.266 27 Weight 88.1 kg Intake: IV 250 110 10 D5.9 NACL @50ML/HR 250 Dextrose 5%-0.9% NaCl 1, 110 10 000 ml @ 10 mls/hr IV . Q24H [facility] Rx#:[id number] Intake, IV Titration 307.515 136.266 Amount Dextrose 5%-0.9% NaCl 1, 100 10 000 ml @ 10 mls/hr IV . Q24H [facility] Rx#:[id number] Norepinephrine 32 mg In 107.515 126.266 Sodium Chloride 0.9% 218 ml @ 0.05 MCG/KG/MIN 1. 805 mls/hr IV .Q24H [facility] Rx#:[id number] Piperacillin-Tazobactam 3 100 .375 gm In Sodium Chloride 0.9% 100 ml @ 25 mls/hr IVPB Q12H [facility] Rx# :[id number] Tube Feeding 40 179 17 Other 160 60 Output: Gastric Drainage 200 Urine 0 Other: # Bowel Movements 1 ABP, PAP, CO, CI - Last Documented Arterial Blood Pressure 94/58 - Labs CBC & Chem 7: 06/06/21 05:20 06/06/21 05:20 Labs: Abnormal Lab Results - Last 24 Hours (Table) 06/06/21 06/06/21 06/06/21 Range/Units 11:55 18:05 23:14 POC Glucose (mg/dL) 121 H 109 H 125 H (75-99) mg/dL 06/07/21 Range/Units 05:24 POC Glucose (mg/dL) 129 H (75-99) mg/dL Microbiology - Last 24 Hours (Table) 06/03/21 11:30 Blood Culture - Preliminary Blood No Growth after 72 hours Assessment and Plan Plan: Assessment: 1. End-stage renal disease maintained on hemodialysis. 2. Hypokalemia from poor intake and PD losses. Replaced. Improved. Yesterday's potassium was hemolyzed. 3. Hypotension due to sepsis. On midodrine. Also on Levophed and IV steroids. Cortisol level not low. 4. Chronic kidney disease mineral bone disease. Phosphorus level 2.7 dated 06/04/2021. 5. PD associated peritonitis with fluid culture positive for group D enterococ cus. PD catheter removed 05/30/21. On IV antibiotics. Infectious disease following. 6. Anemia of chronic kidney disease. On Aranesp. Iron replete. 7. Metabolic acidosis secondary to chronic kidney disease and IV fluids. 8. Subacute infarct. Plan: Hemodialysis today. Wean Levophed. EF preserved. Monitor vancomycin levels. Dose to be adjusted for renal function. Add bicarb. Labs to be drawn with dialysis due to difficult IV access.
[2021-06-07] MEDS: SODIUM BICARBONATE TAB 650 MG TAB PO SCH ×2 (08:36→20:03)
[2021-06-07] MEDS ORDERED: VANCOMYCIN 1,500 MG in SODIUM CHLORIDE 0.9% 250 ML IVPB ONE (09:00)
--- NOTE | 2021-06-07 09:45 | P.PN ---
Subjective Progress Note Date: 06/07/21 Patient seen and examined. on higher amt of pressor. otherwise unchanged Objective - Vital Signs Vital signs: Vital Signs Temp 97.4 F L 06/07/21 08:00 Pulse 105 H 06/07/21 09:30 Resp 21 06/07/21 09:30 BP 88/61 06/07/21 09:30 Pulse Ox 99 06/07/21 09:30 Intake & Output 06/06/21 06/07/21 06/07/21 18:59 06:59 18:59 Intake Total 757.515 485.266 475.357 Output Total 200 0 Balance 557.515 485.266 475.357 Weight 88.1 kg Intake: IV 250 110 30 D5.9 NACL @50ML/HR 250 Dextrose 5%-0.9% NaCl 1, 110 30 000 ml @ 10 mls/hr IV . Q24H [facility] Rx#:[id number] Intake, IV Titration 307.515 136.266 287.357 Amount Dextrose 5%-0.9% NaCl 1, 100 10 000 ml @ 10 mls/hr IV . Q24H [facility] Rx#:[id number] Norepinephrine 32 mg In 107.515 126.266 37.357 Sodium Chloride 0.9% 218 ml @ 0.05 MCG/KG/MIN 1. 805 mls/hr IV .Q24H [facility] Rx#:[id number] Piperacillin-Tazobactam 3 100 .375 gm In Sodium Chloride 0.9% 100 ml @ 25 mls/hr IVPB Q12H [facility] Rx# :[id number] Vancomycin 1,500 mg In 250 Sodium Chloride 0.9% 250 ml @ 125 mls/hr IVPB ONCE ONE Rx#:[id number] Tube Feeding 40 179 68 Other 160 60 90 Output: Gastric Drainage 200 Urine 0 0 Other: # Bowel Movements 1 ABP, PAP, CO, CI - Last Documented Arterial Blood Pressure 94/58 - Exam Gen. is a chronically ill-appearing female in no acute distress. Not responding to commands. All access sites for catheters appear clean and dry. - Labs CBC & Chem 7: 06/06/21 05:20 06/06/21 05:20 Labs: Abnormal Lab Results - Last 24 Hours (Table) 06/06/21 06/06/21 06/06/21 Range/Units 11:55 18:05 23:14 POC Glucose (mg/dL) 121 H 109 H 125 H (75-99) mg/dL 06/07/21 Range/Units 05:24 POC Glucose (mg/dL) 129 H (75-99) mg/dL Microbiology - Last 24 Hours (Table) 06/03/21 11:30 Blood Culture - Preliminary Blood No Growth after 72 hours Assessment and Plan Assessment: Metabolic encephalopathy secondary to peritoneal dialysis catheter associated infection, post removal End-stage renal disease on hemodialysis Acute frontoparietal CVA with right hemiplegia and aphasia Hypotension Need for IV access Plan: Currently she has acceptable access in her femoral in the form of a femoral central line. Continue to monitor. Poor prognosis overall. Decide in next 48h, if pt still unstable will get bedside picc. Given overall picture, benefit of proper iv access would outweigh risk of subclavian vein catheter
--- NOTE | 2021-06-07 10:01 | P.PN ---
Subjective Progress Note Date: 06/07/21 The patient is seen at bedside and per nurse patient is opening eyes and to her mother she was able to move bilateral upper extremities. Her systolic blood pressure is in range of 70-100's. She continues to be on Norepinephrine. She continues not to be on sedation. Objective - Vital Signs Vital signs: Vital Signs Temp 97.4 F L 06/07/21 08:00 Pulse 105 H 06/07/21 09:30 Resp 21 06/07/21 09:30 BP 88/61 06/07/21 09:30 Pulse Ox 99 06/07/21 09:30 Intake & Output 06/06/21 06/07/21 06/07/21 18:59 06:59 18:59 Intake Total 757.515 485.266 475.357 Output Total 200 0 Balance 557.515 485.266 475.357 Weight 88.1 kg Intake: IV 250 110 30 D5.9 NACL @50ML/HR 250 Dextrose 5%-0.9% NaCl 1, 110 30 000 ml @ 10 mls/hr IV . Q24H [facility] Rx#:[id number] Intake, IV Titration 307.515 136.266 287.357 Amount Dextrose 5%-0.9% NaCl 1, 100 10 000 ml @ 10 mls/hr IV . Q24H [facility] Rx#:[id number] Norepinephrine 32 mg In 107.515 126.266 37.357 Sodium Chloride 0.9% 218 ml @ 0.05 MCG/KG/MIN 1. 805 mls/hr IV .Q24H [facility] Rx#:[id number] Piperacillin-Tazobactam 3 100 .375 gm In Sodium Chloride 0.9% 100 ml @ 25 mls/hr IVPB Q12H [facility] Rx# :[id number] Vancomycin 1,500 mg In 250 Sodium Chloride 0.9% 250 ml @ 125 mls/hr IVPB ONCE ONE Rx#:[id number] Tube Feeding 40 179 68 Other 160 60 90 Output: Gastric Drainage 200 Urine 0 0 Other: # Bowel Movements 1 ABP, PAP, CO, CI - Last Documented Arterial Blood Pressure 94/58 - Exam GENERAL: The patient is lying in bed and does not appear in distress. NEUROLOGICAL: Limited because of her condition. Higher mental function: The patient is Stupor GCS 9 (E3, V2, M4). Would open her eye to verbal stimuli. She is not following commands or verbalizing. Cranial nerves: The pupils are round, equal and sluggishly reactive to light. Primary gaze is midline and sometimes looking to right or left. Right lower facial weakness. Otherwise could not assess rest of cranial nerves. Motor: The strength could not assess. But to painful stimuli there is some movement over the left hand. No jerking of any extremities. Has decrease tone throughout upper. Cerebellum: Could not assess. Sensation: Could not assess light touch. With painful stimuli she would grimace face throughout and moved her left hand. WORK-UP: [place] virus PCR was not detected. Ammonia level <9 Lipid panel is triglyceride of 137, cholesterol 105, LDL is 41 and HDL is 36. CT scan of the brain ON 06/02/21 reveals evidence of a left temporoparietal acute infarct. Carotid duplex was reported as no significant stenosis of bilateral ICA. Minimal elevated right ICA systolic velocity. Patient had CT head on 06/05/21: It is reported as large left hemispheric suba cute infarct which shows increased size compared to the CT scan 3 days ago. No hemorrhage. I do agree there is evolution of the patient's stroke and it is predominately Left MCA territory. 2-D echo was reported as overlying concentric left ventricular hypertrophy. Ejection fraction of 55-60%. Left atrial size is normal Routine EEG on 06/04/21 is abnormal. The background slowing suggestive of moderate to severe encephalopathy. There is no focal slowing, epileptiform discharges or seizure on the EEG. - Labs CBC & Chem 7: 06/06/21 05:20 06/07/21 09:30 Labs: Abnormal Lab Results - Last 24 Hours (Table) 06/06/21 06/06/21 06/06/21 Range/Units 11:55 18:05 23:14 POC Glucose (mg/dL) 121 H 109 H 125 H (75-99) mg/dL 06/07/21 Range/Units 05:24 POC Glucose (mg/dL) 129 H (75-99) mg/dL Microbiology - Last 24 Hours (Table) 06/03/21 11:30 Blood Culture - Preliminary Blood No Growth after 72 hours Assessment and Plan Assessment: Altered mental status due to multifactorial: Probable Septic encephalopathy (suspected catheter associated peritonitis), stroke and a component of metabolic encephalopathy Acute ischemic stroke (left hemisphere but seems predominately left MCA). With symptoms of right facial droop and right hemiplegia and aphasia). No IV TPA since outside the window. Etiology of stroke is embolic in nature. Hypotensive episode---on Norepinephrine. End-stage renal disease and is on dialysis Developmental delayed History of essential hypertension History of hypertension During hospital stay has episode of hypotensive Dyslipidemia History of gout Plan: Patient had CT head on 06/05/21: It is reported as large left hemispheric subacute infarct which shows increased size compared to the CT scan 3 days ago. No hemorrhage. I do agree there is evolution of the patient's stroke and it is predominately Left MCA territory. Routine EEG on 06/04/21 is abnormal. The background slowing suggestive of moderate to severe encephalopathy. There is no focal slowing, epileptiform discharges or seizure on the EEG. Patient is on aspirin 300 mg suppository since the patient cannot swallow as well as the has an order of Plavix [address] Carrion. Continue Lipitor 10 mg daily at bedtime Ordered repeat EEG for today. Continue neuro checks PT, OT and VICE CHANCELLOR are consulted On cardiac monitoring Cardiology is on board and recommend DANIELLE. Cardiology will not pursue with DANIELLE. Nephrology is on board. Patient is scheduled for dialysis today. ID team is on board. Please avoid any hypotensive episodes and will defer management to primary and ICU team. We'll defer the rest of medical management to the ICU in the primary team Or DVT prophylaxis will defer the decision to the primary and ICU team. Patient has acute thrombocythemia and for now place on SCD. Upon discharge the patient needs to follow-up with a neurologist as outpatient within 1-2 weeks. Condition: Is Poor. Plan was discussed with the patient's nurse. The mother will give patient another 24 hour then will make further decision. But for now patient is FULL CODE. Hasmukh Scott M.D. Neuro-Hospitalist. Time with Patient: Less than 30
--- NOTE | 2021-06-07 11:16 | P.PN ---
Subjective Progress Note Date: 06/07/21 The patient is a 56-year-old female with a known history of end-stage renal disease on dialysis, hypertension, dyslipidemia, hypothyroidism. 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 Patient is seen in the ICU, she remains unresponsive, lethargic, and is unable to follow commands. Patient continues to have moaning with no signs of acute distress. She continues on a Levophed drip for hypotension. she was tachy last night with a heart in the 100's heart is better controlled today this is likely related to sepsis. Patient is to receive hemodialysis Today. The nurse spoke with family yesterday, family caontinues to wants everything done at this time. Vital signs: Blood pressure 114/88, heart rate 72, respirations 18, 100% on 2 L nasal cannula, afebrile. Objective - Vital Signs Vital signs: Vital Signs Temp 97.4 F L 06/07/21 08:00 Pulse 72 06/07/21 10:00 Resp 20 06/07/21 10:00 BP 114/88 06/07/21 10:00 Pulse Ox 100 06/07/21 10:00 Intake & Output 06/06/21 06/07/21 06/07/21 18:59 06:59 18:59 Intake Total 757.515 485.266 506.784 Output Total 200 0 Balance 557.515 485.266 506.784 Weight 88.1 kg Intake: IV 250 110 40 D5.9 NACL @50ML/HR 250 Dextrose 5%-0.9% NaCl 1, 110 40 000 ml @ 10 mls/hr IV . Q24H [facility] Rx#:[id number] Intake, IV Titration 307.515 136.266 291.784 Amount Dextrose 5%-0.9% NaCl 1, 100 10 000 ml @ 10 mls/hr IV . Q24H [facility] Rx#:[id number] Norepinephrine 32 mg In 107.515 126.266 41.784 Sodium Chloride 0.9% 218 ml @ 0.05 MCG/KG/MIN 1. 805 mls/hr IV .Q24H [facility] Rx#:[id number] Piperacillin-Tazobactam 3 100 .375 gm In Sodium Chloride 0.9% 100 ml @ 25 mls/hr IVPB Q12H [facility] Rx# :[id number] Vancomycin 1,500 mg In 250 Sodium Chloride 0.9% 250 ml @ 125 mls/hr IVPB ONCE ONE Rx#:[id number] Tube Feeding 40 179 85 Other 160 60 90 Output: Gastric Drainage 200 Urine 0 0 Other: # Bowel Movements 1 ABP, PAP, CO, CI - Last Documented Arterial Blood Pressure 94/58 - Exam PHYSICAL EXAM: VITAL SIGNS: Reviewed. GENERAL: Well-developed in no acute distress. HEENT: Head is normocephalic. Pupils are equal, round. Sclerae anicteric. Mucous membranes of the mouth are moist. NECK: Supple. No JVD or thyromegaly RESPIRATORY: Respirations even and unlabored. Lungs diminished to auscultation bilaterally. CARDIO: Regular rate and rhythm. S1 and S2 heard. No murmur or gallops. EXTREMITIES: Normal range of motion. No clubbing or cyanosis. Peripheral pu lses intact. Generalized edema NEURO: Orientated x0 - Labs CBC & Chem 7: 06/06/21 05:20 06/07/21 09:30 Labs: Abnormal Lab Results - Last 24 Hours (Table) 06/06/21 06/06/21 06/06/21 Range/Units 11:55 18:05 23:14 POC Glucose (mg/dL) 121 H 109 H 125 H (75-99) mg/dL 06/07/21 Range/Units 05:24 POC Glucose (mg/dL) 129 H (75-99) mg/dL Microbiology - Last 24 Hours (Table) 06/03/21 11:30 Blood Culture - Preliminary Blood No Growth after 72 hours Assessment and Plan Assessment: Sinus tachycardia, likely related to sepsis, dehydration, and acute CVA Hypotension likely related to sepsis, Hypovolemia/dehydration Acute right frontal parietal CVA Thrombocytopenia Metabolic encephalopathy History of hypertension Hyperlipidemia Hypothyroidism Plan: Continue on Levophed and titrate blood pressure tolerates Continue with Midodrine Continue with all other current medications Continue telemetry monitoring Further recommendations based on clinical course The above impression and plan of care have been discussed and directed by the signing physician. Re Tapia, nurse practitioner, acting as scribe for signing physician.
[2021-06-07 11:51] LABS: Glucose,Whole Blood 120 mg/dL (75-99)
--- NOTE | 2021-06-07 11:59 | P.PN ---
Subjective Progress Note Date: 06/07/21 Principal diagnosis: Acute peritonitis, sepsis, and possible septic shock. 06/01/2023 patient's condition is stable. The patient is hemodynamically improved and the patient is able to support her own blood pressure. The patient is currently running away cervical os 12.8 with a hemoglobin of 9.8. The BUN is at 33 with a creatinine of 4.5. Sodium is at 133. The peritoneal fluid culture veneer jointer returner to be positive for enterococcus group D and earlier culture was positive for Enterococcus faecalis. The patient remains on vancomycin being administered IV. The patient's would have the CAPD catheter removed by general surgery and have a dialysis catheter inserted. Blood pressure is stable for now. The patient's had hydrocortisone level that was elevated and the hydrocortisone IV can be discontinued. No fever. No other significant events otherwise. The patient is calm and comfortable and there are no signs of any respiratory distress and the patient is currently on room air oxygen. Patient was evaluated today on 06/03/21, patient has been followed by Dr. Nielsen on 06/01. Apparently the patient was seen initially on consultation for hypotension, sepsis and septic shock. Patient presented initially with peritonitis. Patient used to be on peritoneal dialysis, and I believe she developed peritoneal dialysis catheter sepsis and peritonitis. A shunt has been treated and evaluated by multiple consultants. Patient was also seen by surgery and she underwent peritoneal dialysis catheter removal. And she was treated all along by infectious disease with multiple antibiotics for her abdominal sepsis/peritonitis. Dr. Nielsen signed off the case, however he was be notified today that the patient needed to be transferred to the ICU and she was developing hypotension again. I evaluated the patient shortly after she was transferred to the ICU, recommended fluid boluses, and I recommended norepinephrine to be started on this patient if she remains hypotensive. Patient is being followed by many consultants including nephrology for her chronic kidney disease. She had a left groin hemodialysis catheter, and I believe she is scheduled to undergo dialysis today. May require norepinephrine to perform hemodialysis. I was able to establish a left groin triple lumen catheter placement, without any complications. I have recommended more fluid boluses and recommended norepinephrine to be started and to continue antibiotics. Serum cortisol level was ordered, and if lobe may consider stress doses of hydrocortisone. Labs today have not been drawn mostly because of the patient had no venous access. Somewhat along the line I believe vascular yonatan neville was also consulted on this patient for vascular access. At any rate she does have now vascular access, she is in the ICU, and she remains on antibiotics. The patient has been moaning and groaning, and she does not seem to be appropriate. She is confused. But not in respiratory distress, she is on 2 L nasal cannula. Patient was evaluated by neurology yesterday, and she had a CT of the brain, findings are suspicious for acute ischemic left frontal and parietal lobe with no midline shift. Patient was reevaluated today on 06/04/2021, remains in the ICU, remains relatively hypotensive, patient is still requiring norepinephrine at 0.18 mcg/kg/m, she received fluid boluses yesterday. She underwent hemodialysis. Patient is being treated for positive bacteremia secondary to Enterococcus faecalis. She remains on Zosyn. Today I recommended a nasogastric tube and recommended that she gets enteral feeding. Patient had a relatively normal electrolytes, however her creatinine is 2.60. WBC count remains high at 28.4 hemoglobin is 9.2 hematocrit 29.6. And she is presently on 2 L nasal cannula. Patient continues to have intermittent episodes of moaning and groaning, but she does not have any purposeful responses. Today I also recommended the patient gets a PICC line placed, and hopefully we can discontinue the left groin central line was a PICC line is established. In the meantime we have a good vascular access to this patient. Again his CT of the brain suspicious for acute left frontal and left parietal ischemic stroke. Patient is being followed by neurology. No chest x-ray was done today, but her chest x-ray from yesterday showed no evidence of acute pulmonary process. Reevaluated today on 06/05/2021, patient remains in the ICU, she is hemodynamically unstable, she is requiring norepinephrine at 0.3 mcg/kg/m. Patient is on room air, and her O2 saturation is 99%, blood pressure is 74/42, patient is receiving hemodialysis today via a right femoral dialysis catheter. Patient remains unresponsive, she is moaning and groaning, does not seem to be in any respiratory distress. She is on Zosyn, and vancomycin. she is also on tube feeds using Nepro at 17 mL per hour. Patient has been seen by many consultants including neurology for her mental status change, considering repeat CT of the head on this patient. Patient is also scheduled to have a PICC line t elisha, she is on D5 0.9 at 50 mL per hour. And again she is being dialyzed today. Patient is being treated for sepsis and septic shock. She remains on Zosyn. Continues to have leukocytosis with WBC count of 24.7 hemoglobin 8.3. Creatinine today is 2.96. Blood sugar is 92. Reevaluated today on 06/06/2021, remains in the ICU, remains hypotensive, she is requiring norepinephrine at 0.28 mcg/kg/m patient is only on few liters nasal cannula, IV fluid is at KVO, patient does make much urine, she is on hemodialysis. Mental status is basically about the same, continues to moan and groan, and no purposeful responses noted. Repeat CT of the head on 06/05 showed large left hemispheric subacute infarct increased in size compared to previous CT few days ago. [place] by neurology that the patient is having evolution of the stroke, and it is predominantly in the left middle cerebral artery territory. Patient is comatose, she does open her eyes to painful stimuli, does not follow any commands, does not verbalize. She does moan. She has right facial weakness, and she has decreased muscle tone. EEG done on 06/04 showed background slowing suggestive of moderate to severe encephalopathy. Evidence of epileptiform discharges or seizures. Labs today showed leukocytosis with WBC count of 26.7 hemoglobin 9.9. Platelets are 69,000. Basic metabolic profile is relatively normal BUN is 13 and creatinine up to 2.44. Patient is on hemodialysis, but no plans to dialyze the patient today. Patient remains on antibiotics for her peritoneal catheter related sepsis and peritonitis. Reevaluated today on 06/06/21, remains in the ICU, remains hypotensive, requiring norepinephrine, she is on 0.3 mcg/kg/m. Patient is on room air, does not seem to be in any respiratory distress, her neurological status is basically about the same. Patient is receiving enteral feeding/Nepro via nasogastric tube. She is on D5 0.9 at 10 mL per hour. Patient is having an EEG today, and she may even get dialysis today later on. Her last pro-calcitonin 2 days ago was still elevated at 0.68. Patient remains antibiotics for her peritonitis. Objective - Vital Signs Vital signs: Vital Signs Temp 97.4 F L 06/07/21 08:00 Pulse 101 H 06/07/21 11:00 Resp 16 06/07/21 11:00 BP 110/75 06/07/21 11:00 Pulse Ox 99 06/07/21 11:00 Intake & Output 06/06/21 06/07/21 06/07/21 18:59 06:59 18:59 Intake Total 757.515 485.266 533.784 Output Total 200 0 Balance 557.515 485.266 533.784 Weight 88.1 kg Intake: IV 250 110 50 D5.9 NACL @50ML/HR 250 Dextrose 5%-0.9% NaCl 1, 110 50 000 ml @ 10 mls/hr IV . Q24H [facility] Rx#:[id number] Intake, IV Titration 307.515 136.266 291.784 Amount Dextrose 5%-0.9% NaCl 1, 100 10 000 ml @ 10 mls/hr IV . Q24H [facility] Rx#:[id number] Norepinephrine 32 mg In 107.515 126.266 41.784 Sodium Chloride 0.9% 218 ml @ 0.05 MCG/KG/MIN 1. 805 mls/hr IV .Q24H [facility] Rx#:[id number] Piperacillin-Tazobactam 3 100 .375 gm In Sodium Chloride 0.9% 100 ml @ 25 mls/hr IVPB Q12H [facility] Rx# :[id number] Vancomycin 1,500 mg In 250 Sodium Chloride 0.9% 250 ml @ 125 mls/hr IVPB ONCE ONE Rx#:[id number] Tube Feeding 40 179 102 Other 160 60 90 Output: Gastric Drainage 200 Urine 0 0 Other: # Bowel Movements 1 1 ABP, PAP, CO, CI - Last Documented Arterial Blood Pressure 94/58 - Exam Gen: This is a 56-year-old obese female resting in the ICU bed, remains on room air , patient is having an EEG. HEENT: Head is atraumatic, normocephalic. Pupils equal, round. Sclerae is anicteric. NECK: Supple. No JVD. No lymphadenopathy. No thyromegaly. LUNGS: Symmetrical chest expansion, diminished breath sounds at the bases. HEART: Regular rate and rhythm. No murmur. ABDOMEN: Soft. Bowel sounds are present. Patient has a hemodialysis catheter in the right groin and a triple-lumen catheter in the left groin. EXTREMITIES: No pedal edema. No calf tenderness. scar on the left knee from previous surgery. NEUROLOGICAL: Opens eyes only, but does not follow any instructions. - Labs CBC & Chem 7: 06/06/21 05:20 06/07/21 09:30 Labs: Abnormal Lab Results - Last 24 Hours (Table) 06/06/21 06/06/21 06/06/21 Range/Units 11:55 18:05 23:14 POC Glucose (mg/dL) 121 H 109 H 125 H (75-99) mg/dL 06/07/21 06/07/21 Range/Units 05:24 11:49 POC Glucose (mg/dL) 129 H 120 H (75-99) mg/dL Microbiology - Last 24 Hours (Table) 06/03/21 11:30 Blood Culture - Preliminary Blood No Growth after 72 hours Assessment and Plan Assessment: Impression: Hypotension, most likely secondary to sepsis and septic shock. Secondary to peritoneal dialysis catheter sepsis. And peritonitis. 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 End-stage renal disease, on peritoneal dialysis in the past, and now she is on hemodialysis. Benign essential hypertension. History of hypothyroidism. Dyslipidemia. History of gout. Chronic anemia of chronic disease. Severe dehydration Electrolytes imbalance, resolving. Recommendation: Continue to monitor the patient in the ICU as long as she is requiring norepinephrine Continue antibiotics. Continue norepinephrine and titrate accordingly. Continue hemodialysis. Continue enteral feeding. Patient is presently on Nepro. Given via nasogastric tube. Continue GI and DVT prophylaxis. Remains critically ill and prognosis is extremely poor. We will continue to follow Time with Patient: Less than 30
--- NOTE | 2021-06-07 12:47 | EEG ---
ELECTROENCEPHALOGRAM REPORT DATE OF SERVICE: 06/07/2021 This is a 56-year-old woman with recent left hemispheric stroke who continues to have altered mental status. The video EEG is obtained to evaluate for seizure epileptiform activity. RELEVANT MEDICATION: The patient is not on any antiepileptic drugs. EEG TYPE: A routine 21 channel EEG is performed with video using the 10/20 electrode placement system. DESCRIPTION: Wakefulness is obtained. During awake state, the background is asymmetric, with the right hemisphere the background consisted of low to moderate voltage that is poorly modulated of 5-6 hertz theta activity intermixed with delta activity. The left hemisphere background consists of low to moderate voltage that is poorly modulated of 4-5 hertz theta activity intermixed with delta activity. There was no physiological stage 2 sleep. There is moderate amount of delta slowing over the left hemisphere. Interictal and ictal is none. ACTIVATION PROCEDURE: Photic stimulation did not evoke a posterior driving response. There is no abnormality during photic stimulation. Hyperventilation is not performed. CLINICAL INTERPRETATION: This is an abnormal routine EEG. The background is asymmetric, in which the right hemisphere background slowing is suggestive of moderate encephalopathy while the left is moderate to severe. The focal slowing over the left hemisphere is consistent with the patient's history of stroke. There is no epileptiform discharge or seizure on the EEG. Today's EEG is somewhat better compared to 06/04/2021 study. Clinical correlation is recommended. ERMIAS / IBRAHIMA: [id number] / [id number]
[2021-06-07 13:32] LABS: Anisocytosis Slight; Basophils # (A) 0.1 k/uL (0-0.2); Basophils % (A) 0 %; Eosinophils % (A) 0 %; HCT 32.1 % (34.0-46.0); HGB 9.3 gm/dL (11.4-16.0); Hypochromasia Marked; Lymphocytes # (A) 1.9 k/uL (1.0-4.8); Lymphocytes % (A) 7 %; MCH 31.5 pg (25.0-35.0); MCHC 29.1 g/dL (31.0-37.0); MCV 108.1 fL (80.0-100.0); Macrocytosis Marked; Mean Platelet Volume 15.3; Monocytes # (A) 0.7 k/uL (0-1.0); Monocytes % (A) 2 %; Neutrophils # (A) 25.4 k/uL (1.3-7.7); Neutrophils % (A) 90 %; Platelet Count 107 k/uL (150-450); RBC 2.97 m/uL (3.80-5.40); RDW 18.2 % (11.5-15.5); WBC 28.1 k/uL (3.8-10.6)
[2021-06-07 13:33] LABS: Albumin 1.6 g/dL (3.5-5.0); Total Bilirubin 0.4 mg/dL (0.2-1.3); Total Protein 4.3 g/dL (6.3-8.2)
[2021-06-07 14:21] LABS: Large Platelets Present; Poikilocytosis (M) Present; Polychromasia Present; Target Cells Present
--- NOTE | 2021-06-07 14:21 | P.PN ---
Subjective Progress Note Date: 06/07/21 HISTORY OF PRESENT ILLNESS 56-year-old female with developmental delay who had history of end-stage renal disease on peritoneal dialysis, history of hypertension, hyperlipidemia, h ypothyroidism who had an infected left knee late last year had surgery and ended up going to rehab for long time was home for the last few weeks when patient developed to have significant change mental status with decreased oral intake with worsening symptoms overall for the last few days have been having fatigue tiredness not been eating or drinking no now moving. Also her dialysis has been getting quite bit worse patient apparently will be switch to hemodialysis was told need workup for fistula graft the left arm for possible hemodialysis. Family ended up bringing her to demurs department at [facility] where was seen and evaluated surprisingly found to have mildly elevated troponin with severe electrolyte imbalance with potassium of 2.1 only. Chest x-ray did not show any infection just atelectasis, COVID-19 was negative at the time. Patient was started on gentle hydration will be admitted to the hospital be seen nephrology and vascular, CK with troponin 3 will be done and patient will be seen cardiology further intervention after doing an echocardiogram will depend on the result. 05/26: Patient states that she is feeling better. No complaints or concerns. Plan is for patient to change from peritoneal dialysis to hemodialysis. Consult for nephrology and vascular surgery in place. Patient remains afebrile, heart rate 108, respirations 18, blood pressure 105/71 pulse ox 90% on room air. WC 10.8, hemoglobin 11.3, sodium 133, potassium 3.1, BUN 44, creatinine 5.15. 05/27, patient is currently nothing by mouth, for planned Port-A-Cath placement today, for the transfusion hemodialysis treatment, from a peritoneal dialysis regimen. Patient has dry mouth, no nausea no vomiting, no chest pain no shortness of breath, vitals are stable, 118/64, no fever, T-max of 97.0, heart rate is in the 70s. Pulse ox room air 98% 05/28: Patient is seen today on the cardiac stepdown unit. She is receiving intraperitoneal antibiotics. Patient is receiving regular CAPD managed by nephrology. Nephrology is planning on 2-3 weeks of antibiotic therapy. Tonsils been added for Dr. Doran 8. 05/29: Throughout the night, blood pressure was low down to 68/50, CAPD was held, patient received 500 mL bolus last evening a repeat this morning and we are ordering another 250 ML's now. Blood pressure has recovered somewhat at 90/60. Cortisol level was ordered and patient will be started on hydrocortisone 100 mg IV every 8 hours. Ensure clear and beneprotein added. Sodium was 132, potassium 3.0 will be replaced, BUN 33 creatinine 4.34, blood sugar 107. The plan to transfer patient to ICU but at this point, hold any transfer and continue current treatment. Dr. Randhawa has seen and reviewed patient, blood cultures and inflammatory markers pending. 05/30: Patient is scheduled to have CAPD catheter removed with Dr. Somers and have dialysis by Dr. Navarro. Blood pressures are improved. Hydrocortisone discontinued as cortisol level was at 30. Blood pressure 103/72, afebrile, heart rate in the 60s, pulse ox 100% on room air. 05/31: Patient had CAPD catheter removed and she is scheduled for dialysis catheter placement today with Dr. Navarro. Patient will be continued on hemodialysis with plan for subacute rehab for discharge once chair time has been obtained for dialysis. Patient is afebrile, heart rate 77, blood pressure 95/55, pulse ox 98% on room air. 06/01: Right common femoral approach for hemodialysis access, was placed on 05/[address] Navarro, antibiotic needs to be finalized by Dr. Randhawa, for peritonitis caused by the peritoneal catheter which has been discontinued also on 05/31 2021. Anticipate discharge to subacute rehab on Thursday, brother is at bedside today, updated regarding treatment plan, no fever no chills, patient has been drowsy today, most likely secondary to pain meds, or lack of sleep. Feedings are minimal today, and is being fed by the brother without any difficulties. No fevers, no aspiration 06/02: patient is seen with the family members today, patient's moaning groaning, starting at9:30 at night, and was noted to have changes in mentationpatient cannot verbally verbalize what is going on last night, do not improve with small dose of Dilaudid 0.5 mg to control the femoral pain, CAT scan of the brain was ordered, 9:33 PM, age indeterminate right frontal lobe CVA with no comparison previous CT, there is a focus of patricio white matter differentiation loss within the right frontal lobe, no interparenchymal hemorrhage or mass effect,, concentration for MRI if clinically warranted, 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 Carrion neurology, for whichanother stat CT was placed,aunt 10 AM, there is an area of diminished attenuation with sulcal effacement involving the left frontal parietal lobe suggestive of acute ischemia, diminished attenuation in the high left parietal region, also suspicious for recent ischemia,code stroke was calledpatient is placed on aspirin 81 mg daily, and Plavix 75 mg daily. However patient cannot take any oral medications at this time, we started aspirin suppository, 1025 mg, until oral route is established. Discussed this with the mother, there was no plans for a PEG feeding at one time she had similar problems for which she has not eaten for one month, and they have used and a NG-tube or dophoff feeding in past it looks like the femoral cath is only a temporary way of providing dialysis, and possibly would return to peritoneal dialysis once cleared of infection.when seen today, patient cannot follow commands, can move ice, small facial droop right side,and not follow verbal commands, painstimuli was given to elicit a motor response, withdraws on the left, no withdrawal of arms on the right side. There is no localization of painful stimuli, and left lower extremity, no movement or evidence of sensation on the right side.blood cultures, no growth 96 hours,IV access to right femoral catheter, blood pressure 97/62 to 117/73. 06/03: Patient was transferred into the intensive care unit due to hypotension and tachycardia status post 1.5 L fluid bolus with plan to start levophed. The line has been placed by pulmonary medicine. She has been seen by cardiology and echocardiogram was ordered. No sign of atrial fibrillation. Nephrology is planning for hemodialysis today. Ankle myosin level XLIII.3. Cortisol level XXXVI and patient has been started on IV hydrocortisone. She remains unresponsive since Thursday evening and followed by nephrology left cerebral artery infarct. Echocardiogram shows EF 55-60% with borderline concentric left ventricular hypertrophy, mild aortic valve sclerosis, mild mitral calcification. Carotid ultrasound reveals no significant stenosis in the bilateral ICAs. Chest x-ray reveals right-sided catheter. No acute pulmonary process. 06/04: Patient remains in the intensive care unit. She is on levo fed which is trying to be weaned down. She is NG tube in place to start tube feedings. She received hemodialysis yesterday and none today. Patient is followed by neurology and is scheduled for EEG today. Patient is followed by multiple consultants. Vascular will be placing a PICC line. Patient is followed by wash crew person, Dr. Somers , cardiology, as well. Patient is continued on IV antibiotics in the form of Zosyn and vancomycin managed by Dr. Randhawa. 06/05: Patient remains in the intensive care unit. She is receiving hemodialysis today and is on norepinephrine. Patient is unresponsive, unable to take any oral intake. Repeat blood work reveals WBC 24.7, hemoglobin 8.3, platelet count 75. Potassium 3.4, creatinine 2.96. Blood sugars are running between 92 and 172. Vancomycin 22.4. C-reactive protein 3.1. Phosphorus 2.7, magnesium 1.9. Mom is at bedside and updated regarding condition and prognosis. She relates that she wishes to have everything done for her daughter. Code status clarified to full code. General surgery is following on an as-needed basis. Vascular is following and tunneled PICC line catheter placement is canceled due to hypotension. Patient is also followed by nephrology, neurology, wash crew person. Solu-Cortef decrease to 50 mg every 8 hours. Prognosis is guarded. 06/06: Patient remains unresponsive. She is had repeat CAT scan yesterday reported large left hemispheric subacute infarct which shows increasing size compared to previous CAT scan and this is felt to be evolution of the patient's stroke predominantly in the left MCA territory. Patient is followed closely by neurology. Cardiology is following and DANIELLE is not recommended due to patient's current clinical status and would not change her clinical course. Patient is currently on aspirin 300 mg rectal, Lipitor 40 mg, Plavix 75 mg daily. She is followed by nephrology and continued on dialysis. Patient remains on norepinephrine and attempting to wean off. Patient's mother is at the bedside and discussed results of CAT scan, patient's current condition and prognosis. At this time, she may wish to pursue PEG tube which has been cleared for placement by Dr. Randhawa. Patient would like to discuss with 2 daughters. 06/07: Patient remains in the intensive care unit. She has been afebrile, heart rate 101, blood pressure 110/75, pulse ox 99% on room air. Patient remains on norepinephrine as well as midodrine. Repeat blood work reveals WBC 20.1, hemoglobin 9.3, sodium 149. Chloride 120. Creatinine 2.99. ALT 47, alkaline phosphatase 232. She did open her eyes for her mother today. She continues to moan. Otherwise no significant response. Mother states that the patient's brother is coming from [place] to see her tomorrow. EEG completed yesterday revealed abnormal study consistent with history of stroke. No epileptiform discharge or seizure. EEG is somewhat better when compared to 06/04 EEG. REVIEW OF SYSTEMS Able to obtain due to mental status changes. PHYSICAL EXAMINATION Gen: This is a 56-year-old obese female resting in the ICU bed. Mother is at bedside. patient moans. HEENT: Head is atraumatic, normocephalic. Pupils equal, round. Sclerae is anicteric. NECK: Supple. No JVD. No lymphadenopathy. No thyromegaly. LUNGS: decreased breath some bilaterally with rhonchi no crackles or wheezes. HEART: Regular rate and rhythm. No murmur. ABDOMEN: Soft. Bowel sounds are present. CAPD catheter was removed. EXTREMITIES: No pedal edema. No calf tenderness. scar on the left knee from previous surgery. NEUROLOGICAL: Patient does not arouse to verbal stimuli. ASSESSMENT AND PLAN 1. Metabolic encephalopathy secondary to PD catheter-associated peritonitis. Patient continued on vancomycin, pharmacy dosing, consult with Dr. Randhawa appreciated. CAPD catheter removed 05/31 [address] Navarro dialysis catheter 05/31 2021 2. 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 Neurology is following, continue aspirin 300 mg rectally, Lipitor increased to 40 mg at bedtime, continue Plavix 75 mg daily. Patient on NG tube feedings. Elevated troponin and possible non-ST NH ruled out by cardiology. Cardiology consult appreciated. Septic shock requiring vasopressor. Continue management in the intensive care unit. Continue Solu-Cortef 50 mg every 8 hours, norepinephrine, midodrine. Hypothyroidism: Continue patient on levothyroxine 112 g daily. Hyperlipidemia: Has been on atorvastatin 10 mg a day. Chronic gout: Patient has been on Zyloprim 100 mg daily. Electrolyte imbalance with severe hypokalemia as well as replacement. Chronic anemia of chronic renal disease. Continue Aranesp. Infected left knee post surgery patient left knee is non-ambulatory. status post antibiotic spacer in place. Severe dehydration Moderate protein calorie malnutrition. Continue tube feedings by NG tube. End-stage renal disease, previously on CAPD, patient transitioned to hemodialysis. GI prophylaxis: Patient be on Protonix. DVT prophylaxis: Knee-high ANDRE hose and Venodyne boots if needed subcu heparin will be done. COVID-19 testing.was negative. Prognosis is guarded Status: Full code Discharge plan:subacute rehab at [facility] Impression and plan of care have been directed as dictated by the signing physician. Kianna Don nurse practitioner acting as scribe for signing physician. Objective - Vital Signs Vital signs: Vital Signs Temp 97.4 F L 06/07/21 08:00 Pulse 101 H 06/07/21 11:00 Resp 16 06/07/21 11:00 BP 110/75 06/07/21 11:00 Pulse Ox 99 06/07/21 11:00 Intake & Output 06/06/21 06/07/21 06/07/21 18:59 06:59 18:59 Intake Total 757.515 485.266 533.784 Output Total 200 0 Balance 557.515 485.266 533.784 Weight 88.1 kg Intake: IV 250 110 50 D5.9 NACL @50ML/HR 250 Dextrose 5%-0.9% NaCl 1, 110 50 000 ml @ 10 mls/hr IV . Q24H KAYLIN Rx#:[id number] Intake, IV Titration 307.515 136.266 291.784 Amount Dextrose 5%-0.9% NaCl 1, 100 10 000 ml @ 10 mls/hr IV . Q24H KAYLIN Rx#:[id number] Norepinephrine 32 mg In 107.515 126.266 41.784 Sodium Chloride 0.9% 218 ml @ 0.05 MCG/KG/MIN 1. 805 mls/hr IV .Q24H KAYLIN Rx#:[id number] Piperacillin-Tazobactam 3 100 .375 gm In Sodium Chloride 0.9% 100 ml @ 25 mls/hr IVPB Q12H KAYLIN Rx# :[id number] Vancomycin 1,500 mg In 250 Sodium Chloride 0.9% 250 ml @ 125 mls/hr IVPB ONCE ONE Rx#:[id number] Tube Feeding 40 179 102 Other 160 60 90 Output: Gastric Drainage 200 Urine 0 0 Other: # Bowel Movements 1 1 ABP, PAP, CO, CI - Last Documented Arterial Blood Pressure 94/58 - Labs CBC & Chem 7: 06/07/21 09:30 06/07/21 09:30 Labs: Abnormal Lab Results - Last 24 Hours (Table) 06/06/21 06/06/21 06/06/21 Range/Units 11:55 18:05 23:14 POC Glucose (mg/dL) 121 H 109 H 125 H (75-99) mg/dL 06/07/21 06/07/21 Range/Units 05:24 11:49 POC Glucose (mg/dL) 129 H 120 H (75-99) mg/dL Microbiology - Last 24 Hours (Table) 06/03/21 11:30 Blood Culture - Preliminary Blood No Growth after 72 hours
[2021-06-07 14:22] LABS: Crenated RBC Present; Toxic Granulation Present
--- NOTE | 2021-06-07 14:55 | P.PN ---
Subjective Progress Note Date: 06/06/21 Principal diagnosis: PD cath associated peritonitis Enterococcus faecalis and staph epi Interval history : Patient is a 56 female admitted to the hospital with nausea vomiting abdominal pain this patient noticed to have purulent peritoneal fluid and was diagnosed with the cath associated peritonitis in this patient who is status post removal of the peritoneal dialysis catheter and insertion of hemodialysis catheter. Patient was moved to the ICU on 06/03/2021 for worsening mental status changes With evidence of large left-sided CVA On today's evaluation that is 06/06/2021, The patient remains to be afebrile, the patient remains to be lethargic morning and is unable provide any history, no significant changes reported by the nursing staff, no diarrhea has been reported Objective - Vital Signs Vital signs: Vital Signs Temp 97.5 F L 06/06/21 12:00 Pulse 68 06/06/21 13:00 Resp 16 06/06/21 13:00 BP 106/82 06/06/21 13:00 Pulse Ox 100 06/06/21 13:00 Intake & Output 06/05/21 06/06/21 06/06/21 18:59 06:59 18:59 Intake Total 1280.308 811.411 407.689 Output Total 600 700 Balance 680.308 111.411 407.689 Weight 86.3 kg Intake: IV 636 615 250 0.9NS Pressure BAg 36 15 D5.9 NACL @50ML/HR 600 600 250 Intake, IV Titration 88.308 196.411 97.689 Amount Dextrose 5%-0.9% NaCl 1, 40 000 ml @ 20 mls/hr IV . Q24H KAYLIN Rx#:[id number] Norepinephrine 32 mg In 88.308 196.411 57.689 Sodium Chloride 0.9% 218 ml @ 0.05 MCG/KG/MIN 1. 805 mls/hr IV .Q24H KAYLIN Rx#:[id number] Tube Feeding 136 0 0 Hemodialysis 300 Other 120 60 Output: Gastric Drainage 700 Urine 0 0 Hemodialysis 600 Other: Voiding Method Diaper Diaper Incontinent Incontinent # Bowel Movements 1 1 ABP, PAP, CO, CI - Last Documented Arterial Blood Pressure 94/58 - Exam General description is a middle-aged female lying in bed in no distress. Respiratory system: Unlabored breathing, decreased intensity of breath sounds, no wheeze. Heart S1, S2.Regular rate and rhythm. Abdomen soft, no tenderness. No guarding or rigidity Extremities no edema feet - Labs CBC & Chem 7: 06/07/21 09:30 06/07/21 09:30 Labs: Abnormal Lab Results - Last 24 Hours (Table) 06/05/21 06/05/21 06/05/21 Range/Units 14:41 18:24 23:30 WBC (3.8-10.6) k/uL RBC (3.80-5.40) m/uL Hgb (11.4-16.0) gm/dL Hct (34.0-46.0) % MCV (80.0-100.0) fL RDW (11.5-15.5) % Plt Count (150-450) k/uL Potassium 3.2 L (3.5-5.1) mmol/L Chloride 118 H (98-107) mmol/L Carbon Dioxide 19 L (22-30) mmol/L Creatinine 2.15 H (0.52-1.04) mg/dL Glucose 163 H (74-99) mg/dL POC Glucose (mg/dL) 151 H 123 H (75-99) mg/dL 06/06/21 06/06/21 06/06/21 Range/Units 05:20 05:20 05:21 WBC 26.7 H (3.8-10.6) k/uL RBC 3.00 L (3.80-5.40) m/uL Hgb 9.9 L D (11.4-16.0) gm/dL Hct 31.3 L (34.0-46.0) % MCV 104.4 H (80.0-100.0) fL RDW 17.3 H (11.5-15.5) % Plt Count 69 L (150-450) k/uL Potassium (3.5-5.1) mmol/L Chloride 119 H (98-107) mmol/L Carbon Dioxide 16 L (22-30) mmol/L Creatinine 2.44 H (0.52-1.04) mg/dL Glucose 161 H (74-99) mg/dL POC Glucose (mg/dL) 151 H (75-99) mg/dL 06/06/21 Range/Units 11:55 WBC (3.8-10.6) k/uL RBC (3.80-5.40) m/uL Hgb (11.4-16.0) gm/dL Hct (34.0-46.0) % MCV (80.0-100.0) fL RDW (11.5-15.5) % Plt Count (150-450) k/uL Potassium (3.5-5.1) mmol/L Chloride (98-107) mmol/L Carbon Dioxide (22-30) mmol/L Creatinine (0.52-1.04) mg/dL Glucose (74-99) mg/dL POC Glucose (mg/dL) 121 H (75-99) mg/dL Microbiology - Last 24 Hours (Table) 06/03/21 11:30 Blood Culture - Preliminary Blood No Growth after 72 hours Assessment and Plan Assessment: 1-patient with a PD catheter associated peritonitis in this patient is status post removal of the infected dialysis catheter culture positive for Enterococcus faecalis and staph epi blood culture negative patient is currently covered with vancomycin pharmacy to dose Vanco level is therapeutic 2-patient with leukocytosis which is multifactorial question of aspiration pneumonitis. Blood culture has been negative White count is trending down and the patient will continue with empiric Zosyn Time with Patient: Less than 30
--- NOTE | 2021-06-07 14:58 | P.PN ---
Subjective Progress Note Date: 06/07/21 Principal diagnosis: PD cath associated peritonitis Enterococcus faecalis and staph epi Interval history : Patient is a 56 female admitted to the hospital with nausea vomiting abdominal pain this patient noticed to have purulent peritoneal fluid and was diagnosed with the cath associated peritonitis in this patient who is status post removal of the peritoneal dialysis catheter and insertion of hemodialysis catheter. Patient was moved to the ICU on 06/03/2021 for worsening mental status changes With evidence of large left-sided CVA On today's evaluation that is 06/07/2021, The patient is afebrile, the patient remains to be lethargic and did not provide any history, no significant changes reported by the caregiver at the bedside, no diarrhea has been reported Objective - Vital Signs Vital signs: Vital Signs Temp 97.8 F 06/07/21 12:00 Pulse 118 H 06/07/21 14:00 Resp 20 06/07/21 14:00 BP 74/54 06/07/21 14:00 Pulse Ox 99 06/07/21 14:00 Intake & Output 06/06/21 06/07/21 06/07/21 18:59 06:59 18:59 Intake Total 757.515 485.266 693.727 Output Total 200 0 Balance 557.515 485.266 693.727 Weight 88.1 kg 88.1 kg Intake: IV 250 110 80 D5.9 NACL @50ML/HR 250 Dextrose 5%-0.9% NaCl 1, 110 80 000 ml @ 10 mls/hr IV . Q24H KAYLIN Rx#:[id number] Intake, IV Titration 307.515 136.266 323.727 Amount Dextrose 5%-0.9% NaCl 1, 100 10 000 ml @ 10 mls/hr IV . Q24H KAYLIN Rx#:[id number] Norepinephrine 32 mg In 107.515 126.266 73.727 Sodium Chloride 0.9% 218 ml @ 0.05 MCG/KG/MIN 1. 805 mls/hr IV .Q24H KAYLIN Rx#:[id number] Piperacillin-Tazobactam 3 100 .375 gm In Sodium Chloride 0.9% 100 ml @ 25 mls/hr IVPB Q12H KAYLIN Rx# :[id number] Vancomycin 1,500 mg In 250 Sodium Chloride 0.9% 250 ml @ 125 mls/hr IVPB ONCE ONE Rx#:[id number] Tube Feeding 40 179 170 Other 160 60 120 Output: Gastric Drainage 200 Urine 0 0 Other: # Bowel Movements 1 1 ABP, PAP, CO, CI - Last Documented Arterial Blood Pressure 94/58 - Exam General description is a middle-aged female lying in bed in no distress. Respiratory system: Unlabored breathing, decreased intensity of breath sounds, no wheeze. Heart S1, S2.Regular rate and rhythm. Abdomen soft, no tenderness. No guarding or rigidity Extremities no edema feet - Labs CBC & Chem 7: 06/07/21 09:30 06/07/21 09:30 Labs: Abnormal Lab Results - Last 24 Hours (Table) 06/06/21 06/06/21 06/07/21 Range/Units 18:05 23:14 05:24 WBC (3.8-10.6) k/uL RBC (3.80-5.40) m/uL Hgb (11.4-16.0) gm/dL Hct (34.0-46.0) % MCV (80.0-100.0) fL MCHC (31.0-37.0) g/dL RDW (11.5-15.5) % Plt Count (150-450) k/uL Neutrophils # (1.3-7.7) k/uL Macrocytosis Sodium (137-145) mmol/L Chloride (98-107) mmol/L Creatinine (0.52-1.04) mg/dL Glucose (74-99) mg/dL POC Glucose (mg/dL) 109 H 125 H 129 H (75-99) mg/dL ALT (4-34) U/L Alkaline Phosphatase (38-126) U/L Total Protein (6.3-8.2) g/dL Albumin (3.5-5.0) g/dL 06/07/21 06/07/21 06/07/21 Range/Units 09:30 09:30 11:49 WBC 28.1 H (3.8-10.6) k/uL RBC 2.97 L (3.80-5.40) m/uL Hgb 9.3 L (11.4-16.0) gm/dL Hct 32.1 L (34.0-46.0) % MCV 108.1 H (80.0-100.0) fL MCHC 29.1 L (31.0-37.0) g/dL RDW 18.2 H (11.5-15.5) % Plt Count 107 L D (150-450) k/uL Neutrophils # 25.4 H (1.3-7.7) k/uL Macrocytosis Marked A Sodium 149 H (137-145) mmol/L Chloride 120 H (98-107) mmol/L Creatinine 2.99 H (0.52-1.04) mg/dL Glucose 173 H (74-99) mg/dL POC Glucose (mg/dL) 120 H (75-99) mg/dL ALT 47 H (4-34) U/L Alkaline Phosphatase 232 H (38-126) U/L Total Protein 4.3 L (6.3-8.2) g/dL Albumin 1.6 L (3.5-5.0) g/dL Microbiology - Last 24 Hours (Table) 06/03/21 11:30 Blood Culture - Preliminary Blood No Growth after 96 hours Assessment and Plan Assessment: 1-patient with a PD catheter associated peritonitis in this patient is status post removal of the infected dialysis catheter culture positive for Enterococcus faecalis and staph epi blood culture negative patient to continue with vancomycin pharmacy to dose duration be at least 2 weeks 2-patient with leukocytosis which is multifactorial question of aspiration pneumonitis. Blood culture has been negative White count noticed to be slightly worse today that we'll monitor closely and continue with the Zosyn
[2021-06-07] MEDS: NOREPINEPHRINE 32 MG in SODIUM CHLORIDE 0.9% 218 ML IV SCH (15:49)
[2021-06-07 18:07] LABS: Glucose,Whole Blood 149 mg/dL (75-99)
[2021-06-07] MEDS: ATORVASTATIN 40 MG TAB PO SCH (20:03)
[2021-06-07] MEDS: SERTRALINE 25 MG TAB PO SCH (20:43)
[2021-06-07 23:44] LABS: Glucose,Whole Blood 168 mg/dL (75-99)
[2021-06-08] MEDS: HYDROCORTISONE SUCCINATE 100 MG/2 ML VIAL IV SCH ×4 (00:09→23:54)
[2021-06-08] MEDS: INSULIN ASPART (NovoLOG) 100 UNIT/ML VIAL SQ SCH ×5 (00:09→23:54)
[2021-06-08] MEDS: DEXTROSE 5%-0.9% NACL 1,000 ML IV SCH (05:48)
[2021-06-08] MEDS: PIPERACILLIN-TAZOBACTAM 3.375 GM in SODIUM CHLORIDE 0.9% 100 ML IVPB SCH ×2 (05:50→15:37)
[2021-06-08 05:56] LABS: Glucose,Whole Blood 132 mg/dL (75-99)
[2021-06-08] MEDS: MIDODRINE 5 MG TAB PO SCH ×3 (06:56→17:11)
[2021-06-08] MEDS: LEVOTHYROXINE 112 MCG TAB PO SCH (06:56)
[2021-06-08] MEDS: PANTOPRAZOLE 40 MG/10 ML VIAL IVP SCH (08:51)
[2021-06-08] MEDS: MAGNESIUM OXIDE 400 MG TAB PO SCH (08:52)
[2021-06-08] MEDS: SODIUM BICARBONATE TAB 650 MG TAB PO SCH ×2 (08:52→20:16)
[2021-06-08] MEDS: FAMOTIDINE 20 MG TAB PO SCH (08:52)
[2021-06-08] MEDS: CLOPIDOGREL 75 MG TAB PO SCH (08:52)
[2021-06-08] MEDS: FOLIC ACID-VIT B COMPLEX-VIT C 1 CAP PO SCH (08:52)
[2021-06-08] MEDS: allopurinoL 100 MG TAB PO SCH (08:53)
[2021-06-08] MEDS: NOREPINEPHRINE 32 MG in SODIUM CHLORIDE 0.9% 218 ML IV SCH (10:39)
[2021-06-08] MEDS: ASPIRIN 300 MG SUPP RECTAL SCH (10:41)
--- NOTE | 2021-06-08 11:43 | P.PN ---
Subjective Progress Note Date: 06/08/21 Principal diagnosis: Acute peritonitis, sepsis, and possible septic shock. 06/01/2023 patient's condition is stable. The patient is hemodynamically improved and the patient is able to support her own blood pressure. The patient is currently running away cervical os 12.8 with a hemoglobin of 9.8. The BUN is at 33 with a creatinine of 4.5. Sodium is at 133. The peritoneal fluid culture return agent to be positive for enterococcus group D and earlier culture was positive for Enterococcus faecalis. The patient remains on vancomycin being administered IV. The patient's would have the CAPD catheter removed by general surgery and have a dialysis catheter inserted. Blood pressure is stable for now. The patient's had hydrocortisone level that was elevated and the hydrocortisone IV can be discontinued. No fever. No other significant events otherwise. The patient is calm and comfortable and there are no signs of any respiratory distress and the patient is currently on room air oxygen. Patient was evaluated today on 06/03/21, patient has been followed by Dr. Nielsen on 06/01. Apparently the patient was seen initially on consultation for hypotension, sepsis and septic shock. Patient presented initially with peritonitis. Patient used to be on peritoneal dialysis, and I believe she developed peritoneal dialysis catheter sepsis and peritonitis. A shunt has been treated and evaluated by multiple consultants. Patient was also seen by surgery and she underwent peritoneal dialysis catheter removal. And she was treated all along by infectious disease with multiple antibiotics for her abdominal sepsis/peritonitis. Dr. Nielsen signed off the case, however he was be notified today that the patient needed to be transferred to the ICU and she was developing hypotension again. I evaluated the patient shortly after she was transferred to the ICU, recommended fluid boluses, and I recommended norepinephrine to be started on this patient if she remains hypotensive. Patient is being followed by many consultants including nephrology for her chronic kidney disease. She had a left groin hemodialysis catheter, and I believe she is scheduled to undergo dialysis today. May require norepinephrine to perform hemodialysis. I was able to establish a left groin triple lumen catheter placement, without any complications. I have recommended more fluid boluses and recommended norepinephrine to be started and to continue antibiotics. Serum cortisol level was ordered, and if lobe may consider stress doses of hydrocortisone. Labs today have not been drawn mostly because of the patient had no venous access. Somewhat along the line I believe vascular yonatan neville was also consulted on this patient for vascular access. At any rate she does have now vascular access, she is in the ICU, and she remains on antibiotics. The patient has been moaning and groaning, and she does not seem to be appropriate. She is confused. But not in respiratory distress, she is on 2 L nasal cannula. Patient was evaluated by neurology yesterday, and she had a CT of the brain, findings are suspicious for acute ischemic left frontal and parietal lobe with no midline shift. Patient was reevaluated today on 06/04/2021, remains in the ICU, remains relatively hypotensive, patient is still requiring norepinephrine at 0.18 mcg/kg/m, she received fluid boluses yesterday. She underwent hemodialysis. Patient is being treated for positive bacteremia secondary to Enterococcus faecalis. She remains on Zosyn. Today I recommended a nasogastric tube and recommended that she gets enteral feeding. Patient had a relatively normal electrolytes, however her creatinine is 2.60. WBC count remains high at 28.4 hemoglobin is 9.2 hematocrit 29.6. And she is presently on 2 L nasal cannula. Patient continues to have intermittent episodes of moaning and groaning, but she does not have any purposeful responses. Today I also recommended the patient gets a PICC line placed, and hopefully we can discontinue the left groin central line was a PICC line is established. In the meantime we have a good vascular access to this patient. Again his CT of the brain suspicious for acute left frontal and left parietal ischemic stroke. Patient is being followed by neurology. No chest x-ray was done today, but her chest x-ray from yesterday showed no evidence of acute pulmonary process. Reevaluated today on 06/05/2021, patient remains in the ICU, she is hemodynamically unstable, she is requiring norepinephrine at 0.3 mcg/kg/m. Patient is on room air, and her O2 saturation is 99%, blood pressure is 74/42, patient is receiving hemodialysis today via a right femoral dialysis catheter. Patient remains unresponsive, she is moaning and groaning, does not seem to be in any respiratory distress. She is on Zosyn, and vancomycin. she is also on tube feeds using Nepro at 17 mL per hour. Patient has been seen by many consultants including neurology for her mental status change, considering repeat CT of the head on this patient. Patient is also scheduled to have a PICC line t elisha, she is on D5 0.9 at 50 mL per hour. And again she is being dialyzed today. Patient is being treated for sepsis and septic shock. She remains on Zosyn. Continues to have leukocytosis with WBC count of 24.7 hemoglobin 8.3. Creatinine today is 2.96. Blood sugar is 92. Reevaluated today on 06/06/2021, remains in the ICU, remains hypotensive, she is requiring norepinephrine at 0.28 mcg/kg/m patient is only on few liters nasal cannula, IV fluid is at KVO, patient does make much urine, she is on hemodialysis. Mental status is basically about the same, continues to moan and groan, and no purposeful responses noted. Repeat CT of the head on 06/05 showed large left hemispheric subacute infarct increased in size compared to previous CT few days ago. [place] by neurology that the patient is having evolution of the stroke, and it is predominantly in the left middle cerebral artery territory. Patient is comatose, she does open her eyes to painful stimuli, does not follow any commands, does not verbalize. She does moan. She has right facial weakness, and she has decreased muscle tone. EEG done on 06/04 showed background slowing suggestive of moderate to severe encephalopathy. Evidence of epileptiform discharges or seizures. Labs today showed leukocytosis with WBC count of 26.7 hemoglobin 9.9. Platelets are 69,000. Basic metabolic profile is relatively normal BUN is 13 and creatinine up to 2.44. Patient is on hemodialysis, but no plans to dialyze the patient today. Patient remains on antibiotics for her peritoneal catheter related sepsis and peritonitis. Reevaluated today on 06/07/21, remains in the ICU, remains hypotensive, requiring norepinephrine, she is on 0.3 mcg/kg/m. Patient is on room air, does not seem to be in any respiratory distress, her neurological status is basically about the same. Patient is receiving enteral feeding/Nepro via nasogastric tube. She is on D5 0.9 at 10 mL per hour. Patient is having an EEG today, and she may even get dialysis today later on. Her last pro-calcitonin 2 days ago was still elevated at 0.68. Patient remains antibiotics for her peritonitis. It was reevaluated today on 06/08/21, remains in the ICU, patient still requiring norepinephrine at 0.27 mcg/kg/m, blood pressure today is 105/51, neurological status is basically about the same. Patient is receiving enteral feeding via nasogastric tube. She is on room air with O2 saturations 99%. Not certain whether the patient is going to be dialyzed today. This will be decided upon by nephrology on the case today. Mental status is about the same, neurological status is about the same. WBC count today is 28.1 hemoglobin is 9.3. Electrolytes showed elevated sodium of 149 potassium 4.0 chloride 120, BUN is 17 and creatinine 2.99. Albumin is 1.6. Patient is receiving enteral feeding via nasogastric tube. No chest x-ray was done. Patient is still on antibiotics, still followed by infectious disease on the case. Infectious diseases planning at least 2 weeks of antibiotics. Objective - Vital Signs Vital signs: Vital Signs Temp 97.5 F L 06/08/21 08:00 Pulse 118 H 06/08/21 11:00 Resp 26 H 06/08/21 11:00 BP 87/56 06/08/21 11:00 Pulse Ox 95 06/08/21 11:00 Intake & Output 06/07/21 06/08/21 06/08/21 18:59 06:59 18:59 Intake Total 1259.272 437.247 173.798 Output Total 500 500 0 Balance 759.272 -62.753 173.798 Weight 88.1 kg 90 kg Intake: IV 120 120 50 Dextrose 5%-0.9% NaCl 1, 120 120 50 000 ml @ 10 mls/hr IV . Q24H [facility] Rx#:[id number] Intake, IV Titration 391.272 138.247 123.798 Amount Norepinephrine 32 mg In 141.272 38.247 123.798 Sodium Chloride 0.9% 218 ml @ 0.05 MCG/KG/MIN 1. 805 mls/hr IV .Q24H [facility] Rx#:[id number] Piperacillin-Tazobactam 3 100 .375 gm In Sodium Chloride 0.9% 100 ml @ 25 mls/hr IVPB Q12H [facility] Rx# :[id number] Vancomycin 1,500 mg In 250 Sodium Chloride 0.9% 250 ml @ 125 mls/hr IVPB ONCE ONE Rx#:[id number] Tube Feeding 238 119 Hemodialysis 300 Other 210 60 Output: Gastric Drainage 500 Urine 0 0 Hemodialysis 500 Other: # Bowel Movements 1 ABP, PAP, CO, CI - Last Documented Arterial Blood Pressure 94/58 - Exam Gen: This is a 56-year-old obese female resting in the ICU bed, on room air, does not seem to be in any distress. HEENT: Head is atraumatic, normocephalic. Pupils equal, round. Sclerae is anicteric. NECK: Supple. No JVD. No lymphadenopathy. No thyromegaly. LUNGS: Symmetrical chest expansion, diminished breath sounds at the bases. HEART: Regular rate and rhythm. No murmur. ABDOMEN: Soft. Bowel sounds are present. Patient continues to have a dialysis catheter in the right groin. EXTREMITIES: No pedal edema. No calf tenderness. scar on the left knee from previous surgery. NEUROLOGICAL: Opens eyes only, but does not follow any instructions. - Labs CBC & Chem 7: 06/07/21 09:30 06/07/21 09:30 Labs: Abnormal Lab Results - Last 24 Hours (Table) 06/07/21 06/07/21 06/07/21 Range/Units 09:30 09:30 11:49 WBC 28.1 H (3.8-10.6) k/uL RBC 2.97 L (3.80-5.40) m/uL Hgb 9.3 L (11.4-16.0) gm/dL Hct 32.1 L (34.0-46.0) % MCV 108.1 H (80.0-100.0) fL MCHC 29.1 L (31.0-37.0) g/dL RDW 18.2 H (11.5-15.5) % Plt Count 107 L D (150-450) k/uL Neutrophils # 25.4 H (1.3-7.7) k/uL Macrocytosis Marked A Sodium 149 H (137-145) mmol/L Chloride 120 H (98-107) mmol/L Creatinine 2.99 H (0.52-1.04) mg/dL Glucose 173 H (74-99) mg/dL POC Glucose (mg/dL) 120 H (75-99) mg/dL ALT 47 H (4-34) U/L Alkaline Phosphatase 232 H (38-126) U/L Total Protein 4.3 L (6.3-8.2) g/dL Albumin 1.6 L (3.5-5.0) g/dL 06/07/21 06/07/21 06/08/21 Range/Units 18:05 23:41 05:54 WBC (3.8-10.6) k/uL RBC (3.80-5.40) m/uL Hgb (11.4-16.0) gm/dL Hct (34.0-46.0) % MCV (80.0-100.0) fL MCHC (31.0-37.0) g/dL RDW (11.5-15.5) % Plt Count (150-450) k/uL Neutrophils # (1.3-7.7) k/uL Macrocytosis Sodium (137-145) mmol/L Chloride (98-107) mmol/L Creatinine (0.52-1.04) mg/dL Glucose (74-99) mg/dL POC Glucose (mg/dL) 149 H 168 H 132 H (75-99) mg/dL ALT (4-34) U/L Alkaline Phosphatase (38-126) U/L Total Protein (6.3-8.2) g/dL Albumin (3.5-5.0) g/dL Microbiology - Last 24 Hours (Table) 06/03/21 11:30 Blood Culture - Preliminary Blood No Growth after 96 hours Assessment and Plan Assessment: Impression: Hypotension, most likely secondary to sepsis and septic shock. Secondary to peritoneal dialysis catheter sepsis. And peritonitis. 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 End-stage renal disease, on peritoneal dialysis in the past, and now she is on hemodialysis. Benign essential hypertension. History of hypothyroidism. Dyslipidemia. History of gout. Chronic anemia of chronic disease. Severe dehydration Electrolytes imbalance, resolving. Recommendation: Continue norepinephrine and titrate accordingly Continue antibiotics. Continue hemodialysis. Continue enteral feeding. Patient is on Nepro Continue GI and DVT prophylaxis. Remains critically ill and prognosis is extremely poor. We will continue to follow Time with Patient: Less than 30
[2021-06-08 12:19] LABS: Glucose,Whole Blood 128 mg/dL (75-99)
--- NOTE | 2021-06-08 12:29 | P.PN ---
Subjective Progress Note Date: 06/08/21 The patient is seen at bedside and is accompanied by her brother who is at bedside. Patient continues to be on Norepinephrine since continues to have hypotensive episodes. Her systolic blood pressure today was as low as 78/65. No drastic improvement noted by nursing staff. Objective - Vital Signs Vital signs: Vital Signs Temp 96.7 F L 06/08/21 12:00 Pulse 123 H 06/08/21 12:00 Resp 18 06/08/21 12:00 BP 95/64 06/08/21 12:00 Pulse Ox 96 06/08/21 12:00 Intake & Output 06/07/21 06/08/21 06/08/21 18:59 06:59 18:59 Intake Total 1259.272 437.247 183.798 Output Total 500 500 0 Balance 759.272 -62.753 183.798 Weight 88.1 kg 90 kg Intake: IV 120 120 60 Dextrose 5%-0.9% NaCl 1, 120 120 60 000 ml @ 10 mls/hr IV . Q24H [facility] Rx#:[id number] Intake, IV Titration 391.272 138.247 123.798 Amount Norepinephrine 32 mg In 141.272 38.247 123.798 Sodium Chloride 0.9% 218 ml @ 0.05 MCG/KG/MIN 1. 805 mls/hr IV .Q24H [facility] Rx#:[id number] Piperacillin-Tazobactam 3 100 .375 gm In Sodium Chloride 0.9% 100 ml @ 25 mls/hr IVPB Q12H [facility] Rx# :[id number] Vancomycin 1,500 mg In 250 Sodium Chloride 0.9% 250 ml @ 125 mls/hr IVPB ONCE ONE Rx#:[id number] Tube Feeding 238 119 Hemodialysis 300 Other 210 60 Output: Gastric Drainage 500 Urine 0 0 Hemodialysis 500 Other: # Bowel Movements 1 ABP, PAP, CO, CI - Last Documented Arterial Blood Pressure 94/58 - Exam GENERAL: The patient is lying in bed and does not appear in distress. NEUROLOGICAL: Limited because of her condition. Higher mental function: The patient has her eyes open and is alert but no following command or verbalizing. She just moans somewhat. Cranial nerves: The pupils are round, equal and reactive to light. Right lower facial weakness. Otherwise could not assess rest of cranial nerves. Motor: The strength could not assess. But to painful stimuli there is some movement over the left hand. No jerking of any extremities. Has decrease tone throughout upper. Cerebellum: Could not assess. Sensation: Could not assess light touch. With painful stimuli she would grimace face throughout and moved her left hand. WORK-UP: [place] virus PCR was not detected. Ammonia level <9 Lipid panel is triglyceride of 137, cholesterol 105, LDL is 41 and HDL is 36. CT scan of the brain ON 06/02/21 reveals evidence of a left temporoparietal acute infarct. Carotid duplex was reported as no significant stenosis of bilateral ICA. Minimal elevated right ICA systolic velocity. Patient had CT head on 06/05/21: It is reported as large left hemispheric subacute infarct which shows increased size compared to the CT scan 3 days ago. No hemorrhage. I do agree there is evolution of the patient's stroke and it is predominately Left MCA territory. 2-D echo was reported as overlying concentric left ventricular hypertrophy. Ejection fraction of 55-60%. Left atrial size is normal Routine EEG on 06/04/21 is abnormal. The background slowing suggestive of moderate to severe encephalopathy. There is no focal slowing, epileptiform discharges or seizure on the EEG. Routine EEG on 06/07/2021 is abnormal. The background is asymmetric in which the right hemisphere background slowing suggestive of moderate encephalopathy Y the left is moderate to severe. The focal slowing over the left hemisphere is consistent with the patient history of stroke. There is no epileptiform discharges or seizure on the EEG. The EEG is somewhat better compared to 06/04/2021 study. - Labs CBC & Chem 7: 06/07/21 09:30 06/07/21 09:30 Labs: Abnormal Lab Results - Last 24 Hours (Table) 06/07/21 06/07/21 06/07/21 Range/Units 09:30 09:30 18:05 WBC 28.1 H (3.8-10.6) k/uL RBC 2.97 L (3.80-5.40) m/uL Hgb 9.3 L (11.4-16.0) gm/dL Hct 32.1 L (34.0-46.0) % MCV 108.1 H (80.0-100.0) fL MCHC 29.1 L (31.0-37.0) g/dL RDW 18.2 H (11.5-15.5) % Plt Count 107 L D (150-450) k/uL Neutrophils # 25.4 H (1.3-7.7) k/uL Macrocytosis Marked A Sodium 149 H (137-145) mmol/L Chloride 120 H (98-107) mmol/L Creatinine 2.99 H (0.52-1.04) mg/dL Glucose 173 H (74-99) mg/dL POC Glucose (mg/dL) 149 H (75-99) mg/dL ALT 47 H (4-34) U/L Alkaline Phosphatase 232 H (38-126) U/L Total Protein 4.3 L (6.3-8.2) g/dL Albumin 1.6 L (3.5-5.0) g/dL 06/07/21 06/08/21 Range/Units 23:41 05:54 WBC (3.8-10.6) k/uL RBC (3.80-5.40) m/uL Hgb (11.4-16.0) gm/dL Hct (34.0-46.0) % MCV (80.0-100.0) fL MCHC (31.0-37.0) g/dL RDW (11.5-15.5) % Plt Count (150-450) k/uL Neutrophils # (1.3-7.7) k/uL Macrocytosis Sodium (137-145) mmol/L Chloride (98-107) mmol/L Creatinine (0.52-1.04) mg/dL Glucose (74-99) mg/dL POC Glucose (mg/dL) 168 H 132 H (75-99) mg/dL ALT (4-34) U/L Alkaline Phosphatase (38-126) U/L Total Protein (6.3-8.2) g/dL Albumin (3.5-5.0) g/dL Microbiology - Last 24 Hours (Table) 06/03/21 11:30 Blood Culture - Preliminary Blood No Growth after 96 hours Assessment and Plan Assessment: Altered mental status due to multifactorial: Probable Septic encephalopathy (suspected catheter associated peritonitis), stroke and a component of metabolic encephalopathy Acute ischemic stroke (left hemisphere but seems predominately left MCA). With symptoms of right facial droop and right hemiplegia and aphasia). No IV TPA si nce outside the window. Etiology of stroke is embolic in nature. Hypotensive episode---on Norepinephrine. End-stage renal disease and is on dialysis Developmental delayed History of essential hypertension History of hypertension During hospital stay has episode of hypotensive Dyslipidemia History of gout Plan: Patient had CT head on 06/05/21: It is reported as large left hemispheric subacute infarct which shows increased size compared to the CT scan 3 days ago. No hemorrhage. I do agree there is evolution of the patient's stroke and it is predominately Left MCA territory. Patient is on aspirin 325mg daily, Plavix 75 mg daily. Continue Lipitor 10 mg daily at bedtime Continue neuro checks PT, OT and [employer] ATTENDANT are consulted On cardiac monitoring Cardiology is on board and recommend DANIELLE. Cardiology will not pursue with DANIELLE. Nephrology is on board. Patient is scheduled for dialysis today. ID team is on board. Please avoid any hypotensive episodes and will defer management to primary and ICU team. We'll defer the rest of medical management to the ICU in the primary team Or DVT prophylaxis will defer the decision to the primary and ICU team. Patient has acute thrombocythemia and for now place on SCD. Upon discharge the patient needs to follow-up with a neurologist as outpatient within 1-2 weeks. Condition: Is critical and prognosis appear poor. She has quality of life since had large left MCA stroke and would require a lot of assistance for basic tasks. Plan was discussed with the patient's brother who is at bedside in details. The son will speak with the patient's mother and rest of family and will try to get back with us tomorrow with response. He said he wants to pursue hospice route but would like to family first. But for now patient is FULL CODE. Hasmukh Scott M.D. Neuro-Hospitalist. Time with Patient: Less than 30
--- NOTE | 2021-06-08 13:25 | P.PN ---
Subjective Progress Note Date: 06/08/21 Follow-up for ESRD. Objective - Vital Signs Vital signs: Vital Signs Temp 96.7 F L 06/08/21 12:00 Pulse 129 H 06/08/21 13:00 Resp 28 H 06/08/21 13:00 BP 96/64 06/08/21 13:00 Pulse Ox 94 L 06/08/21 13:00 Intake & Output 06/07/21 06/08/21 06/08/21 18:59 06:59 18:59 Intake Total 1259.272 437.247 193.798 Output Total 500 500 0 Balance 759.272 -62.753 193.798 Weight 88.1 kg 90 kg Intake: IV 120 120 70 Dextrose 5%-0.9% NaCl 1, 120 120 70 000 ml @ 10 mls/hr IV . Q24H [facility] Rx#:[id number] Intake, IV Titration 391.272 138.247 123.798 Amount Norepinephrine 32 mg In 141.272 38.247 123.798 Sodium Chloride 0.9% 218 ml @ 0.05 MCG/KG/MIN 1. 805 mls/hr IV .Q24H [facility] Rx#:[id number] Piperacillin-Tazobactam 3 100 .375 gm In Sodium Chloride 0.9% 100 ml @ 25 mls/hr IVPB Q12H [facility] Rx# :[id number] Vancomycin 1,500 mg In 250 Sodium Chloride 0.9% 250 ml @ 125 mls/hr IVPB ONCE ONE Rx#:[id number] Tube Feeding 238 119 Hemodialysis 300 Other 210 60 Output: Gastric Drainage 500 Urine 0 0 Hemodialysis 500 Other: # Bowel Movements 1 ABP, PAP, CO, CI - Last Documented Arterial Blood Pressure 94/58 - Exam No acute distress S1-S2 heard Decreased breath sounds Right groin [place] catheter Edema - Labs CBC & Chem 7: 06/07/21 09:30 06/07/21 09:30 Labs: Abnormal Lab Results - Last 24 Hours (Table) 06/07/21 06/07/21 06/07/21 Range/Units 09:30 09:30 18:05 WBC 28.1 H (3.8-10.6) k/uL RBC 2.97 L (3.80-5.40) m/uL Hgb 9.3 L (11.4-16.0) gm/dL Hct 32.1 L (34.0-46.0) % MCV 108.1 H (80.0-100.0) fL MCHC 29.1 L (31.0-37.0) g/dL RDW 18.2 H (11.5-15.5) % Plt Count 107 L D (150-450) k/uL Neutrophils # 25.4 H (1.3-7.7) k/uL Macrocytosis Marked A Sodium 149 H (137-145) mmol/L Chloride 120 H (98-107) mmol/L Creatinine 2.99 H (0.52-1.04) mg/dL Glucose 173 H (74-99) mg/dL POC Glucose (mg/dL) 149 H (75-99) mg/dL ALT 47 H (4-34) U/L Alkaline Phosphatase 232 H (38-126) U/L Total Protein 4.3 L (6.3-8.2) g/dL Albumin 1.6 L (3.5-5.0) g/dL 06/07/21 06/08/21 06/08/21 Range/Units 23:41 05:54 12:17 WBC (3.8-10.6) k/uL RBC (3.80-5.40) m/uL Hgb (11.4-16.0) gm/dL Hct (34.0-46.0) % MCV (80.0-100.0) fL MCHC (31.0-37.0) g/dL RDW (11.5-15.5) % Plt Count (150-450) k/uL Neutrophils # (1.3-7.7) k/uL Macrocytosis Sodium (137-145) mmol/L Chloride (98-107) mmol/L Creatinine (0.52-1.04) mg/dL Glucose (74-99) mg/dL POC Glucose (mg/dL) 168 H 132 H 128 H (75-99) mg/dL ALT (4-34) U/L Alkaline Phosphatase (38-126) U/L Total Protein (6.3-8.2) g/dL Albumin (3.5-5.0) g/dL Microbiology - Last 24 Hours (Table) 06/03/21 11:30 Blood Culture - Preliminary Blood No Growth after 96 hours Assessment and Plan Assessment: #1 ESRD on hemodialysis. #2 septic shock from peritonitis. PD catheter has been removed. #3 volume overload #4 hypervolemic hyponatremia Plan: #1 last hemodialysis was Thursday. Plan again on Thursday. #2 wean off pressors. #3 prognosis guarded. Hospice/palliative appropriate.
--- NOTE | 2021-06-08 14:43 | PN ---
PROGRESS NOTE FOLLOW-UP NOTE: Isis is a 56-year-old lady who was admitted to hospital who has history of end- stage renal disease, on hemodialysis, hypertension, dyslipidemia, and hypothyroidism. She is in the intensive care unit, unresponsive, lethargic, and unable to follow any commands. She is currently on Levophed because of severe hypotension and has sinus tachycardia. Heart rates are varying between and 60 and 120 beats per minute. She has had a CVA, the exact source for which is unclear. Neurologist had been talking to the family about the poor prognosis and currently discussions are underway regarding her CODE STATUS. On exam this morning, patient is afebrile. Heart rate is 120 beats per minute. Blood pressure is 88/60. Respiratory rate is 18. Oxygen saturation is 96%. Chest exam reveals good air entry bilaterally. Heart exam reveals first and second heart sounds. No gallop. No murmur. Examination of extremities reveals bilateral pitting edema. Peripheral pulses are diminished. Labs show potassium of 4, creatinine is 2.9, BUN is 17. Patient is currently on aspirin, Lipitor and Plavix along with the rest of her medication, and Levophed. ASSESSMENT: 1. Hyp tension. 2. Sinus tachycardia. 3. Cerebrovascular accident. PLAN: Continue with supportive care. Prognosis is guarded. MMODL / IJN: [id number] /
--- NOTE | 2021-06-08 16:04 | P.PN ---
Subjective Progress Note Date: 06/08/21 HISTORY OF PRESENT ILLNESS 56-year-old female with developmental delay who had history of end-stage renal disease on peritoneal dialysis, history of hypertension, hyperlipidemia, h ypothyroidism who had an infected left knee late last year had surgery and ended up going to rehab for long time was home for the last few weeks when patient developed to have significant change mental status with decreased oral intake with worsening symptoms overall for the last few days have been having fatigue tiredness not been eating or drinking no now moving. Also her dialysis has been getting quite bit worse patient apparently will be switch to hemodialysis was told need workup for fistula graft the left arm for possible hemodialysis. Family ended up bringing her to demurs department at [facility] where was seen and evaluated surprisingly found to have mildly elevated troponin with severe electrolyte imbalance with potassium of 2.1 only. Chest x-ray did not show any infection just atelectasis, COVID-19 was negative at the time. Patient was started on gentle hydration will be admitted to the hospital be seen nephrology and vascular, CK with troponin 3 will be done and patient will be seen cardiology further intervention after doing an echocardiogram will depend on the result. 05/26: Patient states that she is feeling better. No complaints or concerns. Plan is for patient to change from peritoneal dialysis to hemodialysis. Consult for nephrology and vascular surgery in place. Patient remains afebrile, heart rate 108, respirations 18, blood pressure 105/71 pulse ox 90% on room air. WC 10.8, hemoglobin 11.3, sodium 133, potassium 3.1, BUN 44, creatinine 5.15. 05/27, patient is currently nothing by mouth, for planned Port-A-Cath placement today, for the transfusion hemodialysis treatment, from a peritoneal dialysis regimen. Patient has dry mouth, no nausea no vomiting, no chest pain no shortness of breath, vitals are stable, 118/64, no fever, T-max of 97.0, heart rate is in the 70s. Pulse ox room air 98% 05/28: Patient is seen today on the cardiac stepdown unit. She is receiving intraperitoneal antibiotics. Patient is receiving regular CAPD managed by nephrology. Nephrology is planning on 2-3 weeks of antibiotic therapy. Tonsils been added for Dr. Doran 8. 05/29: Throughout the night, blood pressure was low down to 68/50, CAPD was held, patient received 500 mL bolus last evening a repeat this morning and we are ordering another 250 ML's now. Blood pressure has recovered somewhat at 90/60. Cortisol level was ordered and patient will be started on hydrocortisone 100 mg IV every 8 hours. Ensure clear and beneprotein added. Sodium was 132, potassium 3.0 will be replaced, BUN 33 creatinine 4.34, blood sugar 107. The plan to transfer patient to ICU but at this point, hold any transfer and continue current treatment. Dr. Randhawa has seen and reviewed patient, blood cultures and inflammatory markers pending. 05/30: Patient is scheduled to have CAPD catheter removed with Dr. Somers and have dialysis by Dr. Navarro. Blood pressures are improved. Hydrocortisone discontinued as cortisol level was at 30. Blood pressure 103/72, afebrile, heart rate in the 60s, pulse ox 100% on room air. 05/31: Patient had CAPD catheter removed and she is scheduled for dialysis catheter placement today with Dr. Navarro. Patient will be continued on hemodialysis with plan for subacute rehab for discharge once chair time has been obtained for dialysis. Patient is afebrile, heart rate 77, blood pressure 95/55, pulse ox 98% on room air. 06/01: Right common femoral approach for hemodialysis access, was placed on 05/[address] Navarro, antibiotic needs to be finalized by Dr. Randhawa, for peritonitis caused by the peritoneal catheter which has been discontinued also on 05/31 2021. Anticipate discharge to subacute rehab on Thursday, brother is at bedside today, updated regarding treatment plan, no fever no chills, patient has been drowsy today, most likely secondary to pain meds, or lack of sleep. Feedings are minimal today, and is being fed by the brother without any difficulties. No fevers, no aspiration 06/02: patient is seen with the family members today, patient's moaning groaning, starting at9:30 at night, and was noted to have changes in mentationpatient cannot verbally verbalize what is going on last night, do not improve with small dose of Dilaudid 0.5 mg to control the femoral pain, CAT scan of the brain was ordered, 9:33 PM, age indeterminate right frontal lobe CVA with no comparison previous CT, there is a focus of patricio white matter differentiation loss within the right frontal lobe, no interparenchymal hemorrhage or mass effect,, concentration for MRI if clinically warranted, 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 Carrion neurology, for whichanother stat CT was placed,aunt 10 AM, there is an area of diminished attenuation with sulcal effacement involving the left frontal parietal lobe suggestive of acute ischemia, diminished attenuation in the high left parietal region, also suspicious for recent ischemia,code stroke was calledpatient is placed on aspirin 81 mg daily, and Plavix 75 mg daily. However patient cannot take any oral medications at this time, we started aspirin suppository, 1025 mg, until oral route is established. Discussed this with the mother, there was no plans for a PEG feeding at one time she had similar problems for which she has not eaten for one month, and they have used and a NG-tube or dophoff feeding in past it looks like the femoral cath is only a temporary way of providing dialysis, and possibly would return to peritoneal dialysis once cleared of infection.when seen today, patient cannot follow commands, can move ice, small facial droop right side,and not follow verbal commands, painstimuli was given to elicit a motor response, withdraws on the left, no withdrawal of arms on the right side. There is no localization of painful stimuli, and left lower extremity, no movement or evidence of sensation on the right side.blood cultures, no growth 96 hours,IV access to right femoral catheter, blood pressure 97/62 to 117/73. 06/03: Patient was transferred into the intensive care unit due to hypotension and tachycardia status post 1.5 L fluid bolus with plan to start levophed. The line has been placed by pulmonary medicine. She has been seen by cardiology and echocardiogram was ordered. No sign of atrial fibrillation. Nephrology is planning for hemodialysis today. Ankle myosin level XLIII.3. Cortisol level XXXVI and patient has been started on IV hydrocortisone. She remains unresponsive since Thursday evening and followed by nephrology left cerebral artery infarct. Echocardiogram shows EF 55-60% with borderline concentric left ventricular hypertrophy, mild aortic valve sclerosis, mild mitral calcification. Carotid ultrasound reveals no significant stenosis in the bilateral ICAs. Chest x-ray reveals right-sided catheter. No acute pulmonary process. 06/04: Patient remains in the intensive care unit. She is on levo fed which is trying to be weaned down. She is NG tube in place to start tube feedings. She received hemodialysis yesterday and none today. Patient is followed by neurology and is scheduled for EEG today. Patient is followed by multiple consultants. Vascular will be placing a PICC line. Patient is followed by video system repairer, Dr. Somers , cardiology, as well. Patient is continued on IV antibiotics in the form of Zosyn and vancomycin managed by Dr. Randhawa. 06/05: Patient remains in the intensive care unit. She is receiving hemodialysis today and is on norepinephrine. Patient is unresponsive, unable to take any oral intake. Repeat blood work reveals WBC 24.7, hemoglobin 8.3, platelet count 75. Potassium 3.4, creatinine 2.96. Blood sugars are running between 92 and 172. Vancomycin 22.4. C-reactive protein 3.1. Phosphorus 2.7, magnesium 1.9. Mom is at bedside and updated regarding condition and prognosis. She relates that she wishes to have everything done for her daughter. Code status clarified to full code. General surgery is following on an as-needed basis. Vascular is following and tunneled PICC line catheter placement is canceled due to hypotension. Patient is also followed by nephrology, neurology, video system repairer. Solu-Cortef decrease to 50 mg every 8 hours. Prognosis is guarded. 06/06: Patient remains unresponsive. She is had repeat CAT scan yesterday reported large left hemispheric subacute infarct which shows increasing size compared to previous CAT scan and this is felt to be evolution of the patient's stroke predominantly in the left MCA territory. Patient is followed closely by neurology. Cardiology is following and DANIELLE is not recommended due to patient's current clinical status and would not change her clinical course. Patient is currently on aspirin 300 mg rectal, Lipitor 40 mg, Plavix 75 mg daily. She is followed by nephrology and continued on dialysis. Patient remains on norepinephrine and attempting to wean off. Patient's mother is at the bedside and discussed results of CAT scan, patient's current condition and prognosis. At this time, she may wish to pursue PEG tube which has been cleared for placement by Dr. Randhawa. Patient would like to discuss with 2 daughters. 06/07: Patient remains in the intensive care unit. She has been afebrile, heart rate 101, blood pressure 110/75, pulse ox 99% on room air. Patient remains on norepinephrine as well as midodrine. Repeat blood work reveals WBC 20.1, hemoglobin 9.3, sodium 149. Chloride 120. Creatinine 2.99. ALT 47, alkaline phosphatase 232. She did open her eyes for her mother today. She continues to moan. Otherwise no significant response. Mother states that the patient's brother is coming from [place] to see her tomorrow. EEG completed yesterday revealed abnormal study consistent with history of stroke. No epileptiform discharge or seizure. EEG is somewhat better when compared to 06/04 EEG. 02/06 and patient examined bedside. Appears to open her eyes spontaneously. She makes no verbal connection just moans. Weight is stable continues to be tachycardic blood pressure labile with systolic ranging from 82-99 and diastolic ranging from 40-60. Labs reviewed. Cortisol was normal patient continues to hydrocortisone 50 every 8 hours pending me to treat and 10 3 times a day. 2. Patient's family's is inclining towards hospice since patient has not made any progress. He patient's brother will discuss with family before proceeding towards hospice REVIEW OF SYSTEMS Able to obtain due to mental status changes. PHYSICAL EXAMINATION Gen: This is a 56-year-old obese female resting in the ICU bed. Mother is at bedside. patient moans. HEENT: Head is atraumatic, normocephalic. Pupils equal, round. Sclerae is anicteric. NECK: Supple. No JVD. No lymphadenopathy. No thyromegaly. LUNGS: decreased breath some bilaterally with rhonchi no crackles or wheezes. HEART: Regular rate and rhythm. No murmur. ABDOMEN: Soft. Bowel sounds are present. CAPD catheter was removed. EXTREMITIES: No pedal edema. No calf tenderness. scar on the left knee from previous surgery. NEUROLOGICAL: Patient does not arouse to verbal stimuli. ASSESSMENT AND PLAN 1. Metabolic encephalopathy secondary to PD catheter-associated peritonitis. Patient continued on vancomycin, pharmacy dosing, consult with Dr. Edis lawson. CAPD catheter removed 05/31 [address] Navarro dialysis catheter 05/31 2021 2. 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 Neurology is following, continue aspirin 300 mg rectally, Lipitor increased to 40 mg at bedtime, continue Plavix 75 mg daily. Patient on NG tube feedings. Elevated troponin and possible non-ST MA ruled out by cardiology. Cardiology consult appreciated. Septic shock requiring vasopressor. Continue management in the intensive care unit. Continue Solu-Cortef 50 mg every 8 hours, norepinephrine, midodrine. Hypothyroidism: Continue patient on levothyroxine 112 g daily. Hyperlipidemia: Has been on atorvastatin 10 mg a day. Chronic gout: Patient has been on Zyloprim 100 mg daily. Electrolyte imbalance with severe hypokalemia as well as replacement. Chronic anemia of chronic renal disease. Continue Aranesp. Infected left knee post surgery patient left knee is non-ambulatory. status post antibiotic spacer in place. Severe dehydration Moderate protein calorie malnutrition. Continue tube feedings by NG tube. End-stage renal disease, previously on CAPD, patient transitioned to hemodialysis. GI prophylaxis: Patient be on Protonix. DVT prophylaxis: Knee-high ANDRE hose and Venodyne boots if needed subcu heparin will be done. COVID-19 testing.was negative. Prognosis is guarded Status: Full code Discharge plan:subacute rehab at [facility] versus hospice Objective - Vital Signs Vital signs: Vital Signs Temp 96.7 F L 06/08/21 12:00 Pulse 124 H 06/08/21 15:15 Resp 24 06/08/21 15:15 BP 82/61 06/08/21 15:15 Pulse Ox 95 06/08/21 15:15 Intake & Output 06/07/21 06/08/21 06/08/21 18:59 06:59 18:59 Intake Total 1259.272 437.247 213.798 Output Total 500 500 0 Balance 759.272 -62.753 213.798 Weight 88.1 kg 90 kg Intake: IV 120 120 90 Dextrose 5%-0.9% NaCl 1, 120 120 90 000 ml @ 10 mls/hr IV . Q24H [facility] Rx#:[id number] Intake, IV Titration 391.272 138.247 123.798 Amount Norepinephrine 32 mg In 141.272 38.247 123.798 Sodium Chloride 0.9% 218 ml @ 0.05 MCG/KG/MIN 1. 805 mls/hr IV .Q24H [facility] Rx#:[id number] Piperacillin-Tazobactam 3 100 .375 gm In Sodium Chloride 0.9% 100 ml @ 25 mls/hr IVPB Q12H [facility] Rx# :[id number] Vancomycin 1,500 mg In 250 Sodium Chloride 0.9% 250 ml @ 125 mls/hr IVPB ONCE ONE Rx#:[id number] Tube Feeding 238 119 Hemodialysis 300 Other 210 60 Output: Gastric Drainage 500 Urine 0 0 Hemodialysis 500 Other: # Bowel Movements 1 ABP, PAP, CO, CI - Last Documented Arterial Blood Pressure 94/58 - Labs CBC & Chem 7: 06/07/21 09:30 06/07/21 09:30 Labs: Abnormal Lab Results - Last 24 Hours (Table) 06/07/21 06/07/21 06/08/21 Range/Units 18:05 23:41 05:54 POC Glucose (mg/dL) 149 H 168 H 132 H (75-99) mg/dL 06/08/21 Range/Units 12:17 POC Glucose (mg/dL) 128 H (75-99) mg/dL Microbiology - Last 24 Hours (Table) 06/03/21 11:30 Blood Culture - Preliminary Blood No Growth after 120 hours
[2021-06-08 17:34] LABS: Glucose,Whole Blood 124 mg/dL (75-99)
[2021-06-08] MEDS: ATORVASTATIN 40 MG TAB PO SCH (20:16)
[2021-06-08] MEDS: SERTRALINE 25 MG TAB PO SCH (20:16)
[2021-06-08] MEDS: SODIUM CHLORIDE 0.9% 150 ML with VASOPRESSIN 60 UNIT IV SCH ×2 (22:48)
[2021-06-08 23:34] LABS: Glucose,Whole Blood 134 mg/dL (75-99)
[2021-06-09] MEDS: DEXTROSE 5%-0.9% NACL 1,000 ML IV SCH (01:40)
[2021-06-09] MEDS: ONDANSETRON 4 MG/2 ML VIAL IVP PRN (02:04)
[2021-06-09] MEDS: PIPERACILLIN-TAZOBACTAM 3.375 GM in SODIUM CHLORIDE 0.9% 100 ML IVPB SCH ×2 (03:59→15:01)
[2021-06-09 05:20] LABS: Glucose,Whole Blood 121 mg/dL (75-99)
[2021-06-09] MEDS: INSULIN ASPART (NovoLOG) 100 UNIT/ML VIAL SQ SCH ×3 (05:52→18:50)
[2021-06-09] MEDS ORDERED: ASPIRIN 325 MG TAB PO SCH (09:00)
[2021-06-09] MEDS: FAMOTIDINE 20 MG TAB PO SCH (09:10)
[2021-06-09] MEDS: MAGNESIUM OXIDE 400 MG TAB PO SCH (09:10)
[2021-06-09] MEDS: MIDODRINE 5 MG TAB PO SCH ×3 (09:10→14:51)
[2021-06-09] MEDS: FOLIC ACID-VIT B COMPLEX-VIT C 1 CAP PO SCH (09:10)
[2021-06-09] MEDS: CLOPIDOGREL 75 MG TAB PO SCH (09:10)
[2021-06-09] MEDS: LEVOTHYROXINE 112 MCG TAB PO SCH (09:10)
[2021-06-09] MEDS: allopurinoL 100 MG TAB PO SCH (09:10)
[2021-06-09] MEDS: SODIUM BICARBONATE TAB 650 MG TAB PO SCH ×2 (09:11→19:16)
[2021-06-09] MEDS: NOREPINEPHRINE 32 MG in SODIUM CHLORIDE 0.9% 218 ML IV SCH ×2 (09:11→19:17)
[2021-06-09] MEDS: PANTOPRAZOLE 40 MG/10 ML VIAL IVP SCH (10:30)
[2021-06-09 10:45] LABS: Anisocytosis Slight; HGB 9.5 gm/dL (11.4-16.0); Hypochromasia Marked; MCH 32.3 pg (25.0-35.0); MCHC 29.6 g/dL (31.0-37.0); MCV 109.3 fL (80.0-100.0); Macrocytosis Marked; Mean Platelet Volume 15.2; RBC 2.93 m/uL (3.80-5.40); RDW 19.3 % (11.5-15.5)
[2021-06-09 11:14] LABS: Calcium 9.3 mg/dL (8.4-10.2); Potassium 4.2 mmol/L (3.5-5.1)
[2021-06-09 11:44] LABS: Glucose,Whole Blood 121 mg/dL (75-99)
[2021-06-09 12:47] LABS: Band Neutrophils % 2 %; Metamyelocytes % 1 %; Neutrophils % (M) 84 %; Nucleated Red Blood Cells 13 /100 WBC (0-0); Total Cells Counted 200
[2021-06-09 12:48] LABS: Eosinophils # (M) 0.12 k/uL (0-0.7); Lymphocytes # (M) 1.12 k/uL (1.0-4.8); Metamyelocytes # (M) 0.12 k/uL (0); Monocytes # (M) 0.62 k/uL (0-1.0); Polychromasia Present; WBC 12.4 k/uL (3.8-10.6)
[2021-06-09 12:50] LABS: Platelet Count 95 k/uL (150-450)
--- NOTE | 2021-06-09 12:53 | P.PN ---
Subjective Progress Note Date: 06/09/21 Principal diagnosis: Acute peritonitis, sepsis, and possible septic shock. 06/01/2023 patient's condition is stable. The patient is hemodynamically improved and the patient is able to support her own blood pressure. The patient is currently running away cervical os 12.8 with a hemoglobin of 9.8. The BUN is at 33 with a creatinine of 4.5. Sodium is at 133. The peritoneal fluid culture porcelain turner to be positive for enterococcus group D and earlier culture was positive for Enterococcus faecalis. The patient remains on vancomycin being administered IV. The patient's would have the CAPD catheter removed by general surgery and have a dialysis catheter inserted. Blood pressure is stable for now. The patient's had hydrocortisone level that was elevated and the hydrocortisone IV can be discontinued. No fever. No other significant events otherwise. The patient is calm and comfortable and there are no signs of any respiratory distress and the patient is currently on room air oxygen. Patient was evaluated today on 06/03/21, patient has been followed by Dr. Nielsen on 06/01. Apparently the patient was seen initially on consultation for hypotension, sepsis and septic shock. Patient presented initially with peritonitis. Patient used to be on peritoneal dialysis, and I believe she developed peritoneal dialysis catheter sepsis and peritonitis. A shunt has been treated and evaluated by multiple consultants. Patient was also seen by surgery and she underwent peritoneal dialysis catheter removal. And she was treated all along by infectious disease with multiple antibiotics for her abdominal sepsis/peritonitis. Dr. Nielsen signed off the case, however he was be notified today that the patient needed to be transferred to the ICU and she was developing hypotension again. I evaluated the patient shortly after she was transferred to the ICU, recommended fluid boluses, and I recommended norepinephrine to be started on this patient if she remains hypotensive. Patient is being followed by many consultants including nephrology for her chronic kidney disease. She had a left groin hemodialysis catheter, and I believe she is scheduled to undergo dialysis today. May require norepinephrine to perform hemodialysis. I was able to establish a left groin triple lumen catheter placement, without any complications. I have recommended more fluid boluses and recommended norepinephrine to be started and to continue antibiotics. Serum cortisol level was ordered, and if lobe may consider stress doses of hydrocortisone. Labs today have not been drawn mostly because of the patient had no venous access. Somewhat along the line I believe vascular yonatan neville was also consulted on this patient for vascular access. At any rate she does have now vascular access, she is in the ICU, and she remains on antibiotics. The patient has been moaning and groaning, and she does not seem to be appropriate. She is confused. But not in respiratory distress, she is on 2 L nasal cannula. Patient was evaluated by neurology yesterday, and she had a CT of the brain, findings are suspicious for acute ischemic left frontal and parietal lobe with no midline shift. Patient was reevaluated today on 06/04/2021, remains in the ICU, remains relatively hypotensive, patient is still requiring norepinephrine at 0.18 mcg/kg/m, she received fluid boluses yesterday. She underwent hemodialysis. Patient is being treated for positive bacteremia secondary to Enterococcus faecalis. She remains on Zosyn. Today I recommended a nasogastric tube and recommended that she gets enteral feeding. Patient had a relatively normal electrolytes, however her creatinine is 2.60. WBC count remains high at 28.4 hemoglobin is 9.2 hematocrit 29.6. And she is presently on 2 L nasal cannula. Patient continues to have intermittent episodes of moaning and groaning, but she does not have any purposeful responses. Today I also recommended the patient gets a PICC line placed, and hopefully we can discontinue the left groin central line was a PICC line is established. In the meantime we have a good vascular access to this patient. Again his CT of the brain suspicious for acute left frontal and left parietal ischemic stroke. Patient is being followed by neurology. No chest x-ray was done today, but her chest x-ray from yesterday showed no evidence of acute pulmonary process. Reevaluated today on 06/05/2021, patient remains in the ICU, she is hemodynamically unstable, she is requiring norepinephrine at 0.3 mcg/kg/m. Patient is on room air, and her O2 saturation is 99%, blood pressure is 74/42, patient is receiving hemodialysis today via a right femoral dialysis catheter. Patient remains unresponsive, she is moaning and groaning, does not seem to be in any respiratory distress. She is on Zosyn, and vancomycin. she is also on tube feeds using Nepro at 17 mL per hour. Patient has been seen by many consultants including neurology for her mental status change, considering repeat CT of the head on this patient. Patient is also scheduled to have a PICC line t elisha, she is on D5 0.9 at 50 mL per hour. And again she is being dialyzed today. Patient is being treated for sepsis and septic shock. She remains on Zosyn. Continues to have leukocytosis with WBC count of 24.7 hemoglobin 8.3. Creatinine today is 2.96. Blood sugar is 92. Reevaluated today on 06/06/2021, remains in the ICU, remains hypotensive, she is requiring norepinephrine at 0.28 mcg/kg/m patient is only on few liters nasal cannula, IV fluid is at KVO, patient does make much urine, she is on hemodialysis. Mental status is basically about the same, continues to moan and groan, and no purposeful responses noted. Repeat CT of the head on 06/05 showed large left hemispheric subacute infarct increased in size compared to previous CT few days ago. [place] by neurology that the patient is having evolution of the stroke, and it is predominantly in the left middle cerebral artery territory. Patient is comatose, she does open her eyes to painful stimuli, does not follow any commands, does not verbalize. She does moan. She has right facial weakness, and she has decreased muscle tone. EEG done on 06/04 showed background slowing suggestive of moderate to severe encephalopathy. Evidence of epileptiform discharges or seizures. Labs today showed leukocytosis with WBC count of 26.7 hemoglobin 9.9. Platelets are 69,000. Basic metabolic profile is relatively normal BUN is 13 and creatinine up to 2.44. Patient is on hemodialysis, but no plans to dialyze the patient today. Patient remains on antibiotics for her peritoneal catheter related sepsis and peritonitis. Reevaluated today on 06/07/21, remains in the ICU, remains hypotensive, requiring norepinephrine, she is on 0.3 mcg/kg/m. Patient is on room air, does not seem to be in any respiratory distress, her neurological status is basically about the same. Patient is receiving enteral feeding/Nepro via nasogastric tube. She is on D5 0.9 at 10 mL per hour. Patient is having an EEG today, and she may even get dialysis today later on. Her last pro-calcitonin 2 days ago was still elevated at 0.68. Patient remains antibiotics for her peritonitis. It was reevaluated today on 06/08/21, remains in the ICU, patient still requiring norepinephrine at 0.27 mcg/kg/m, blood pressure today is 105/51, neurological status is basically about the same. Patient is receiving enteral feeding via nasogastric tube. She is on room air with O2 saturations 99%. Not certain whether the patient is going to be dialyzed today. This will be decided upon by nephrology on the case today. Mental status is about the same, neurological status is about the same. WBC count today is 28.1 hemoglobin is 9.3. Electrolytes showed elevated sodium of 149 potassium 4.0 chloride 120, BUN is 17 and creatinine 2.99. Albumin is 1.6. Patient is receiving enteral feeding via nasogastric tube. No chest x-ray was done. Patient is still on antibiotics, still followed by infectious disease on the case. Infectious diseases planning at least 2 weeks of antibiotics. Patient was reevaluated today on 06/09/21, remains in the ICU, she is now on more pressors including norepinephrine at 0.32 and she is also on vasopressin at 0.04. Patient has not been dialyzed since Thursday, her IV fluids at 50 mL per hour, patient is on room air, does not seem to be in any distress. However continues to moan and groan, she remains hypotensive, and she remains on stress doses of hydrocortisone, with no significant improvement. Neurologically the p atient is about the same, and CODE STATUS remains full code based on her family's wishes. Although her prognosis is extremely poor, and the patient clearly had a major CVA. Quality of life is extremely poor. Objective - Vital Signs Vital signs: Vital Signs Temp 98.2 F 06/09/21 04:00 Pulse 62 06/09/21 11:30 Resp 21 06/09/21 11:30 BP 90/56 06/09/21 11:30 Pulse Ox 96 06/09/21 11:30 Intake & Output 06/08/21 06/09/21 06/09/21 18:59 06:59 18:59 Intake Total 243.798 379.227 28.820 Output Total 0 850 0 Balance 243.798 -470.773 28.820 Weight 90.3 kg Intake: IV 120 130 10 Dextrose 5%-0.9% NaCl 1, 120 130 10 000 ml @ 10 mls/hr IV . Q24H [facility] Rx#:[id number] Intake, IV Titration 123.798 249.227 18.820 Amount Norepinephrine 32 mg In 123.798 249.227 18.820 Sodium Chloride 0.9% 218 ml @ 0.05 MCG/KG/MIN 1. 805 mls/hr IV .Q24H [facility] Rx#:[id number] Output: Gastric Drainage 850 Urine 0 0 0 Stool 0 Other: # Voids 0 ABP, PAP, CO, CI - Last Documented Arterial Blood Pressure 94/58 - Exam Gen: This is a 56-year-old obese female resting in the ICU bed, on room air, does not seem to be in any distress. HEENT: Head is atraumatic, normocephalic. Pupils equal, round. Sclerae is anicteric. NECK: Supple. No JVD. No lymphadenopathy. No thyromegaly. LUNGS: Symmetrical chest expansion, diminished breath sounds at the bases. HEART: Regular rate and rhythm. No murmur. ABDOMEN: Soft. Bowel sounds are present. Patient continues to have a dialysis catheter in the right groin. EXTREMITIES: No pedal edema. No calf tenderness. scar on the left knee from previous surgery. NEUROLOGICAL: Opens eyes only, but does not follow any instructions. - Labs CBC & Chem 7: 06/09/21 07:55 06/09/21 07:55 Labs: Abnormal Lab Results - Last 24 Hours (Table) 06/08/21 06/08/21 06/09/21 Range/Units 17:33 23:32 05:19 WBC (3.8-10.6) k/uL RBC (3.80-5.40) m/uL Hgb (11.4-16.0) gm/dL Hct (34.0-46.0) % MCV (80.0-100.0) fL MCHC (31.0-37.0) g/dL RDW (11.5-15.5) % Plt Count (150-450) k/uL Neutrophils # (Manual) (1.3-7.7) k/uL Metamyelocytes # (Man) (0) k/uL Nucleated RBCs (0-0) /100 WBC Macrocytosis Sodium (137-145) mmol/L Chloride (98-107) mmol/L BUN (7-17) mg/dL Creatinine (0.52-1.04) mg/dL Glucose (74-99) mg/dL POC Glucose (mg/dL) 124 H 134 H 121 H (75-99) mg/dL Plasma Lactic Acid David (0.7-2.0) mmol/L 06/09/21 06/09/21 06/09/21 Range/Units 07:55 07:55 07:55 WBC 12.4 H (3.8-10.6) k/uL RBC 2.93 L (3.80-5.40) m/uL Hgb 9.5 L (11.4-16.0) gm/dL Hct 32.0 L (34.0-46.0) % MCV 109.3 H (80.0-100.0) fL MCHC 29.6 L (31.0-37.0) g/dL RDW 19.3 H (11.5-15.5) % Plt Count 95 L (150-450) k/uL Neutrophils # (Manual) 10.60 H (1.3-7.7) k/uL Metamyelocytes # (Man) 0.12 H (0) k/uL Nucleated RBCs 13 H (0-0) /100 WBC Macrocytosis Marked A Sodium 148 H (137-145) mmol/L Chloride 118 H (98-107) mmol/L BUN 25 H (7-17) mg/dL Creatinine 3.34 H (0.52-1.04) mg/dL Glucose 135 H (74-99) mg/dL POC Glucose (mg/dL) (75-99) mg/dL Plasma Lactic Acid David 3.7 H* (0.7-2.0) mmol/L 06/09/21 Range/Units 11:42 WBC (3.8-10.6) k/uL RBC (3.80-5.40) m/uL Hgb (11.4-16.0) gm/dL Hct (34.0-46.0) % MCV (80.0-100.0) fL MCHC (31.0-37.0) g/dL RDW (11.5-15.5) % Plt Count (150-450) k/uL Neutrophils # (Manual) (1.3-7.7) k/uL Metamyelocytes # (Man) (0) k/uL Nucleated RBCs (0-0) /100 WBC Macrocytosis Sodium (137-145) mmol/L Chloride (98-107) mmol/L BUN (7-17) mg/dL Creatinine (0.52-1.04) mg/dL Glucose (74-99) mg/dL POC Glucose (mg/dL) 121 H (75-99) mg/dL Plasma Lactic Acid David (0.7-2.0) mmol/L Microbiology - Last 24 Hours (Table) 06/03/21 11:30 Blood Culture - Preliminary Blood No Growth after 120 hours Assessment and Plan Assessment: Impression: Hypotension, most likely secondary to sepsis and septic shock. Secondary to peritoneal dialysis catheter sepsis. And peritonitis. 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 End-stage renal disease, on peritoneal dialysis in the past, and now she is on hemodialysis. Benign essential hypertension. History of hypothyroidism. Dyslipidemia. History of gout. Chronic anemia of chronic disease. Severe dehydration Electrolytes imbalance, resolving. Recommendation: Continue norepinephrine and vasopressin. Continue antibiotics. Continue hemodialysis. Continue enteral feeding. Patient is on Nepro Continue GI and DVT prophylaxis. Remains critically ill and prognosis is extremely poor. We will continue to follow Time with Patient: Less than 30
--- NOTE | 2021-06-09 13:15 | P.PN ---
Subjective Progress Note Date: 06/09/21 Follow-up for ESRD. Family at bedside. Objective - Vital Signs Vital signs: Vital Signs Temp 98.2 F 06/09/21 04:00 Pulse 62 06/09/21 11:30 Resp 21 06/09/21 11:30 BP 90/56 06/09/21 11:30 Pulse Ox 96 06/09/21 11:30 Intake & Output 06/08/21 06/09/21 06/09/21 18:59 06:59 18:59 Intake Total 243.798 379.227 28.820 Output Total 0 850 0 Balance 243.798 -470.773 28.820 Weight 90.3 kg Intake: IV 120 130 10 Dextrose 5%-0.9% NaCl 1, 120 130 10 000 ml @ 10 mls/hr IV . Q24H [facility] Rx#:[id number] Intake, IV Titration 123.798 249.227 18.820 Amount Norepinephrine 32 mg In 123.798 249.227 18.820 Sodium Chloride 0.9% 218 ml @ 0.05 MCG/KG/MIN 1. 805 mls/hr IV .Q24H [facility] Rx#:[id number] Output: Gastric Drainage 850 Urine 0 0 0 Stool 0 Other: # Voids 0 ABP, PAP, CO, CI - Last Documented Arterial Blood Pressure 94/58 - Exam No acute distress S1-S2 heard Decreased breath sounds Right groin [place] catheter Edema - Labs CBC & Chem 7: 06/09/21 07:55 06/09/21 07:55 Labs: Abnormal Lab Results - Last 24 Hours (Table) 06/08/21 06/08/21 06/09/21 Range/Units 17:33 23:32 05:19 WBC (3.8-10.6) k/uL RBC (3.80-5.40) m/uL Hgb (11.4-16.0) gm/dL Hct (34.0-46.0) % MCV (80.0-100.0) fL MCHC (31.0-37.0) g/dL RDW (11.5-15.5) % Plt Count (150-450) k/uL Neutrophils # (Manual) (1.3-7.7) k/uL Metamyelocytes # (Man) (0) k/uL Nucleated RBCs (0-0) /100 WBC Macrocytosis Sodium (137-145) mmol/L Chloride (98-107) mmol/L BUN (7-17) mg/dL Creatinine (0.52-1.04) mg/dL Glucose (74-99) mg/dL POC Glucose (mg/dL) 124 H 134 H 121 H (75-99) mg/dL Plasma Lactic Acid David (0.7-2.0) mmol/L 06/09/21 06/09/21 06/09/21 Range/Units 07:55 07:55 07:55 WBC 12.4 H (3.8-10.6) k/uL RBC 2.93 L (3.80-5.40) m/uL Hgb 9.5 L (11.4-16.0) gm/dL Hct 32.0 L (34.0-46.0) % MCV 109.3 H (80.0-100.0) fL MCHC 29.6 L (31.0-37.0) g/dL RDW 19.3 H (11.5-15.5) % Plt Count 95 L (150-450) k/uL Neutrophils # (Manual) 10.60 H (1.3-7.7) k/uL Metamyelocytes # (Man) 0.12 H (0) k/uL Nucleated RBCs 13 H (0-0) /100 WBC Macrocytosis Marked A Sodium 148 H (137-145) mmol/L Chloride 118 H (98-107) mmol/L BUN 25 H (7-17) mg/dL Creatinine 3.34 H (0.52-1.04) mg/dL Glucose 135 H (74-99) mg/dL POC Glucose (mg/dL) (75-99) mg/dL Plasma Lactic Acid David 3.7 H* (0.7-2.0) mmol/L 06/09/21 Range/Units 11:42 WBC (3.8-10.6) k/uL RBC (3.80-5.40) m/uL Hgb (11.4-16.0) gm/dL Hct (34.0-46.0) % MCV (80.0-100.0) fL MCHC (31.0-37.0) g/dL RDW (11.5-15.5) % Plt Count (150-450) k/uL Neutrophils # (Manual) (1.3-7.7) k/uL Metamyelocytes # (Man) (0) k/uL Nucleated RBCs (0-0) /100 WBC Macrocytosis Sodium (137-145) mmol/L Chloride (98-107) mmol/L BUN (7-17) mg/dL Creatinine (0.52-1.04) mg/dL Glucose (74-99) mg/dL POC Glucose (mg/dL) 121 H (75-99) mg/dL Plasma Lactic Acid David (0.7-2.0) mmol/L Microbiology - Last 24 Hours (Table) 06/03/21 11:30 Blood Culture - Preliminary Blood No Growth after 120 hours Assessment and Plan Assessment: #1 ESRD on hemodialysis. #2 septic shock from peritonitis. PD catheter has been removed. #3 volume overload #4 hypervolemic hyponatremia Plan: #1 last hemodialysis was Thursday, discussed with the family, no further dialysis. #2 wean off pressors. #3 prognosis guarded. Hospice/palliative appropriate.
[2021-06-09] MEDS: HYDROCORTISONE SUCCINATE 100 MG/2 ML VIAL IV SCH (15:02)
[2021-06-09] MEDS: SODIUM CHLORIDE 0.9% 150 ML with VASOPRESSIN 60 UNIT IV SCH ×2 (15:25)
--- NOTE | 2021-06-09 15:27 | P.PN ---
Subjective Progress Note Date: 06/09/21 HISTORY OF PRESENT ILLNESS 56-year-old female with developmental delay who had history of end-stage renal disease on peritoneal dialysis, history of hypertension, hyperlipidemia, h ypothyroidism who had an infected left knee late last year had surgery and ended up going to rehab for long time was home for the last few weeks when patient developed to have significant change mental status with decreased oral intake with worsening symptoms overall for the last few days have been having fatigue tiredness not been eating or drinking no now moving. Also her dialysis has been getting quite bit worse patient apparently will be switch to hemodialysis was told need workup for fistula graft the left arm for possible hemodialysis. Family ended up bringing her to demurs department at [facility] where was seen and evaluated surprisingly found to have mildly elevated troponin with severe electrolyte imbalance with potassium of 2.1 only. Chest x-ray did not show any infection just atelectasis, COVID-19 was negative at the time. Patient was started on gentle hydration will be admitted to the hospital be seen nephrology and vascular, CK with troponin 3 will be done and patient will be seen cardiology further intervention after doing an echocardiogram will depend on the result. 05/26: Patient states that she is feeling better. No complaints or concerns. Plan is for patient to change from peritoneal dialysis to hemodialysis. Consult for nephrology and vascular surgery in place. Patient remains afebrile, heart rate 108, respirations 18, blood pressure 105/71 pulse ox 90% on room air. WC 10.8, hemoglobin 11.3, sodium 133, potassium 3.1, BUN 44, creatinine 5.15. 05/27, patient is currently nothing by mouth, for planned Port-A-Cath placement today, for the transfusion hemodialysis treatment, from a peritoneal dialysis regimen. Patient has dry mouth, no nausea no vomiting, no chest pain no shortness of breath, vitals are stable, 118/64, no fever, T-max of 97.0, heart rate is in the 70s. Pulse ox room air 98% 05/28: Patient is seen today on the cardiac stepdown unit. She is receiving intraperitoneal antibiotics. Patient is receiving regular CAPD managed by nephrology. Nephrology is planning on 2-3 weeks of antibiotic therapy. Tonsils been added for Dr. Doran 8. 05/29: Throughout the night, blood pressure was low down to 68/50, CAPD was held, patient received 500 mL bolus last evening a repeat this morning and we are ordering another 250 ML's now. Blood pressure has recovered somewhat at 90/60. Cortisol level was ordered and patient will be started on hydrocortisone 100 mg IV every 8 hours. Ensure clear and beneprotein added. Sodium was 132, potassium 3.0 will be replaced, BUN 33 creatinine 4.34, blood sugar 107. The plan to transfer patient to ICU but at this point, hold any transfer and continue current treatment. Dr. Randhawa has seen and reviewed patient, blood cultures and inflammatory markers pending. 05/30: Patient is scheduled to have CAPD catheter removed with Dr. Somers and have dialysis by Dr. Navarro. Blood pressures are improved. Hydrocortisone discontinued as cortisol level was at 30. Blood pressure 103/72, afebrile, heart rate in the 60s, pulse ox 100% on room air. 05/31: Patient had CAPD catheter removed and she is scheduled for dialysis catheter placement today with Dr. Navarro. Patient will be continued on hemodialysis with plan for subacute rehab for discharge once chair time has been obtained for dialysis. Patient is afebrile, heart rate 77, blood pressure 95/55, pulse ox 98% on room air. 06/01: Right common femoral approach for hemodialysis access, was placed on 05/[address] Navarro, antibiotic needs to be finalized by Dr. Randhawa, for peritonitis caused by the peritoneal catheter which has been discontinued also on 05/31 2021. Anticipate discharge to subacute rehab on Thursday, brother is at bedside today, updated regarding treatment plan, no fever no chills, patient has been drowsy today, most likely secondary to pain meds, or lack of sleep. Feedings are minimal today, and is being fed by the brother without any difficulties. No fevers, no aspiration 06/02: patient is seen with the family members today, patient's moaning groaning, starting at9:30 at night, and was noted to have changes in mentationpatient cannot verbally verbalize what is going on last night, do not improve with small dose of Dilaudid 0.5 mg to control the femoral pain, CAT scan of the brain was ordered, 9:33 PM, age indeterminate right frontal lobe CVA with no comparison previous CT, there is a focus of patricio white matter differentiation loss within the right frontal lobe, no interparenchymal hemorrhage or mass effect,, concentration for MRI if clinically warranted, 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 Carrion neurology, for whichanother stat CT was placed,aunt 10 AM, there is an area of diminished attenuation with sulcal effacement involving the left frontal parietal lobe suggestive of acute ischemia, diminished attenuation in the high left parietal region, also suspicious for recent ischemia,code stroke was calledpatient is placed on aspirin 81 mg daily, and Plavix 75 mg daily. However patient cannot take any oral medications at this time, we started aspirin suppository, 1025 mg, until oral route is established. Discussed this with the mother, there was no plans for a PEG feeding at one time she had similar problems for which she has not eaten for one month, and they have used and a NG-tube or dophoff feeding in past it looks like the femoral cath is only a temporary way of providing dialysis, and possibly would return to peritoneal dialysis once cleared of infection.when seen today, patient cannot follow commands, can move ice, small facial droop right side,and not follow verbal commands, painstimuli was given to elicit a motor response, withdraws on the left, no withdrawal of arms on the right side. There is no localization of painful stimuli, and left lower extremity, no movement or evidence of sensation on the right side.blood cultures, no growth 96 hours,IV access to right femoral catheter, blood pressure 97/62 to 117/73. 06/03: Patient was transferred into the intensive care unit due to hypotension and tachycardia status post 1.5 L fluid bolus with plan to start levophed. The line has been placed by pulmonary medicine. She has been seen by cardiology and echocardiogram was ordered. No sign of atrial fibrillation. Nephrology is planning for hemodialysis today. Ankle myosin level XLIII.3. Cortisol level XXXVI and patient has been started on IV hydrocortisone. She remains unresponsive since Thursday evening and followed by nephrology left cerebral artery infarct. Echocardiogram shows EF 55-60% with borderline concentric left ventricular hypertrophy, mild aortic valve sclerosis, mild mitral calcification. Carotid ultrasound reveals no significant stenosis in the bilateral ICAs. Chest x-ray reveals right-sided catheter. No acute pulmonary process. 06/04: Patient remains in the intensive care unit. She is on levo fed which is trying to be weaned down. She is NG tube in place to start tube feedings. She received hemodialysis yesterday and none today. Patient is followed by neurology and is scheduled for EEG today. Patient is followed by multiple consultants. Vascular will be placing a PICC line. Patient is followed by aeronautical engineering officer, Dr. Somers , cardiology, as well. Patient is continued on IV antibiotics in the form of Zosyn and vancomycin managed by Dr. Randhawa. 06/05: Patient remains in the intensive care unit. She is receiving hemodialysis today and is on norepinephrine. Patient is unresponsive, unable to take any oral intake. Repeat blood work reveals WBC 24.7, hemoglobin 8.3, platelet count 75. Potassium 3.4, creatinine 2.96. Blood sugars are running between 92 and 172. Vancomycin 22.4. C-reactive protein 3.1. Phosphorus 2.7, magnesium 1.9. Mom is at bedside and updated regarding condition and prognosis. She relates that she wishes to have everything done for her daughter. Code status clarified to full code. General surgery is following on an as-needed basis. Vascular is following and tunneled PICC line catheter placement is canceled due to hypotension. Patient is also followed by nephrology, neurology, aeronautical engineering officer. Solu-Cortef decrease to 50 mg every 8 hours. Prognosis is guarded. 06/06: Patient remains unresponsive. She is had repeat CAT scan yesterday reported large left hemispheric subacute infarct which shows increasing size compared to previous CAT scan and this is felt to be evolution of the patient's stroke predominantly in the left MCA territory. Patient is followed closely by neurology. Cardiology is following and DANIELLE is not recommended due to patient's current clinical status and would not change her clinical course. Patient is currently on aspirin 300 mg rectal, Lipitor 40 mg, Plavix 75 mg daily. She is followed by nephrology and continued on dialysis. Patient remains on norepinephrine and attempting to wean off. Patient's mother is at the bedside and discussed results of CAT scan, patient's current condition and prognosis. At this time, she may wish to pursue PEG tube which has been cleared for placement by Dr. Randhawa. Patient would like to discuss with 2 daughters. 06/07: Patient remains in the intensive care unit. She has been afebrile, heart rate 101, blood pressure 110/75, pulse ox 99% on room air. Patient remains on norepinephrine as well as midodrine. Repeat blood work reveals WBC 20.1, hemoglobin 9.3, sodium 149. Chloride 120. Creatinine 2.99. ALT 47, alkaline phosphatase 232. She did open her eyes for her mother today. She continues to moan. Otherwise no significant response. Mother states that the patient's brother is coming from [place] to see her tomorrow. EEG completed yesterday revealed abnormal study consistent with history of stroke. No epileptiform discharge or seizure. EEG is somewhat better when compared to 06/04 EEG. 02/06 and patient examined bedside. Appears to open her eyes spontaneously. She makes no verbal connection just moans. Weight is stable continues to be tachycardic blood pressure labile with systolic ranging from 82-99 and diastolic ranging from 40-60. Labs reviewed. Cortisol was normal patient continues to hydrocortisone 50 every 8 hours pending me to treat and 10 3 times a day. 2. Patient's family's is inclining towards hospice since patient has not made any progress. He patient's brother will discuss with family before proceeding towards hospice 06/09 patient examined bedside resting comfortably in bed. Multiple: Physician with the family has been made with the plan to switch to hospice care in the nex t 24-48 hours. Patient is not making any purposeful movement. She does open her eyes intermittently to command. Nephrology has spoke to the family about stopping dialysis and weaning off pressors. Patient will be probably be switched to hospice but tomorrow REVIEW OF SYSTEMS Able to obtain due to mental status changes. PHYSICAL EXAMINATION Gen: This is a 56-year-old obese female resting in the ICU bed. Mother is at bedside. patient moans. HEENT: Head is atraumatic, normocephalic. Pupils equal, round. Sclerae is anicteric. NECK: Supple. No JVD. No lymphadenopathy. No thyromegaly. LUNGS: decreased breath some bilaterally with rhonchi no crackles or wheezes. HEART: Regular rate and rhythm. No murmur. ABDOMEN: Soft. Bowel sounds are present. CAPD catheter was removed. EXTREMITIES: No pedal edema. No calf tenderness. scar on the left knee from previous surgery. NEUROLOGICAL: Patient does not arouse to verbal stimuli. ASSESSMENT AND PLAN 1. Metabolic encephalopathy secondary to PD catheter-associated peritonitis. Patient continued on vancomycin, pharmacy dosing, consult with Dr. Edis alex ppreciated. CAPD catheter removed 05/31 [address] Navarro dialysis catheter 05/31 2021 2. 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 Neurology is following, continue aspirin 300 mg rectally, Lipitor increased to 40 mg at bedtime, continue Plavix 75 mg daily. Patient on NG tube feedings. Elevated troponin and possible non-ST KS ruled out by cardiology. Cardiology consult appreciated. Septic shock requiring vasopressor. Continue management in the intensive care unit. Continue Solu-Cortef 50 mg every 8 hours, norepinephrine, midodrine. Hypothyroidism: Continue patient on levothyroxine 112 g daily. Hyperlipidemia: Has been on atorvastatin 10 mg a day. Chronic gout: Patient has been on Zyloprim 100 mg daily. Electrolyte imbalance with severe hypokalemia as well as replacement. Chronic anemia of chronic renal disease. Continue Aranesp. Infected left knee post surgery patient left knee is non-ambulatory. status post antibiotic spacer in place. Severe dehydration Moderate protein calorie malnutrition. Continue tube feedings by NG tube. End-stage renal disease, previously on CAPD, patient transitioned to hemodialysis. GI prophylaxis: Patient be on Protonix. DVT prophylaxis: Knee-high ANDRE hose and Venodyne boots if needed subcu heparin will be done. COVID-19 testing.was negative. Prognosis is guarded Status: Full code Discharge plan hospice care in the next 24 hours Objective - Vital Signs Vital signs: Vital Signs Temp 98.2 F 06/09/21 04:00 Pulse 110 H 06/09/21 15:00 Resp 17 06/09/21 15:00 BP 99/57 06/09/21 15:00 Pulse Ox 99 06/09/21 15:00 Intake & Output 06/08/21 06/09/21 06/09/21 18:59 06:59 18:59 Intake Total 243.798 379.227 78.820 Output Total 0 850 0 Balance 243.798 -470.773 78.820 Weight 90.3 kg Intake: IV 120 130 60 Dextrose 5%-0.9% NaCl 1, 120 130 60 000 ml @ 10 mls/hr IV . Q24H [facility]LIN Rx#:[id number] Intake, IV Titration 123.798 249.227 18.820 Amount Norepinephrine 32 mg In 123.798 249.227 18.820 Sodium Chloride 0.9% 218 ml @ 0.05 MCG/KG/MIN 1. 805 mls/hr IV .Q24H K[facility]LIN Rx#:[id number] Output: Gastric Drainage 850 Urine 0 0 0 Stool 0 Other: # Voids 0 ABP, PAP, CO, CI - Last Documented Arterial Blood Pressure 94/58 - Labs CBC & Chem 7: 06/09/21 07:55 06/09/21 07:55 Labs: Abnormal Lab Results - Last 24 Hours (Table) 06/08/21 06/08/21 06/09/21 Range/Units 17:33 23:32 05:19 WBC (3.8-10.6) k/uL RBC (3.80-5.40) m/uL Hgb (11.4-16.0) gm/dL Hct (34.0-46.0) % MCV (80.0-100.0) fL MCHC (31.0-37.0) g/dL RDW (11.5-15.5) % Plt Count (150-450) k/uL Neutrophils # (Manual) (1.3-7.7) k/uL Metamyelocytes # (Man) (0) k/uL Nucleated RBCs (0-0) /100 WBC Macrocytosis Sodium (137-145) mmol/L Chloride (98-107) mmol/L BUN (7-17) mg/dL Creatinine (0.52-1.04) mg/dL Glucose (74-99) mg/dL POC Glucose (mg/dL) 124 H 134 H 121 H (75-99) mg/dL Plasma Lactic Acid David (0.7-2.0) mmol/L 06/09/21 06/09/21 06/09/21 Range/Units 07:55 07:55 07:55 WBC 12.4 H (3.8-10.6) k/uL RBC 2.93 L (3.80-5.40) m/uL Hgb 9.5 L (11.4-16.0) gm/dL Hct 32.0 L (34.0-46.0) % MCV 109.3 H (80.0-100.0) fL MCHC 29.6 L (31.0-37.0) g/dL RDW 19.3 H (11.5-15.5) % Plt Count 95 L (150-450) k/uL Neutrophils # (Manual) 10.60 H (1.3-7.7) k/uL Metamyelocytes # (Man) 0.12 H (0) k/uL Nucleated RBCs 13 H (0-0) /100 WBC Macrocytosis Marked A Sodium 148 H (137-145) mmol/L Chloride 118 H (98-107) mmol/L BUN 25 H (7-17) mg/dL Creatinine 3.34 H (0.52-1.04) mg/dL Glucose 135 H (74-99) mg/dL POC Glucose (mg/dL) (75-99) mg/dL Plasma Lactic Acid David 3.7 H* (0.7-2.0) mmol/L 06/09/21 Range/Units 11:42 WBC (3.8-10.6) k/uL RBC (3.80-5.40) m/uL Hgb (11.4-16.0) gm/dL Hct (34.0-46.0) % MCV (80.0-100.0) fL MCHC (31.0-37.0) g/dL RDW (11.5-15.5) % Plt Count (150-450) k/uL Neutrophils # (Manual) (1.3-7.7) k/uL Metamyelocytes # (Man) (0) k/uL Nucleated RBCs (0-0) /100 WBC Macrocytosis Sodium (137-145) mmol/L Chloride (98-107) mmol/L BUN (7-17) mg/dL Creatinine (0.52-1.04) mg/dL Glucose (74-99) mg/dL POC Glucose (mg/dL) 121 H (75-99) mg/dL Plasma Lactic Acid David (0.7-2.0) mmol/L Microbiology - Last 24 Hours (Table) 06/03/21 11:30 Blood Culture - Final Blood No Growth after 144 hours
--- NOTE | 2021-06-09 16:15 | P.PN ---
Subjective Progress Note Date: 06/09/21 Principal diagnosis: PD cath associated peritonitis Enterococcus faecalis and staph epi Interval history : Patient is a 56 female admitted to the hospital with nausea vomiting abdominal pain this patient noticed to have purulent peritoneal fluid and was diagnosed with the cath associated peritonitis in this patient who is status post removal of the peritoneal dialysis catheter and insertion of hemodialysis catheter. Patient was moved to the ICU on 06/03/2021 for worsening mental status changes With evidence of large left-sided CVA On today's evaluation that is 06/08/2021, The patient remains to be afebrile, the patient remains to be lethargic unable to not provide any history, no significant changes reported by the caregiver at the bedside, no diarrhea has be en reported Objective - Vital Signs Vital signs: Vital Signs Temp 98.2 F 06/09/21 04:00 Pulse 110 H 06/09/21 15:00 Resp 17 06/09/21 15:00 BP 99/57 06/09/21 15:00 Pulse Ox 99 06/09/21 15:00 Intake & Output 06/08/21 06/09/21 06/09/21 18:59 06:59 18:59 Intake Total 243.798 379.227 78.820 Output Total 0 850 0 Balance 243.798 -470.773 78.820 Weight 90.3 kg Intake: IV 120 130 60 Dextrose 5%-0.9% NaCl 1, 120 130 60 000 ml @ 10 mls/hr IV . Q24H [facility]LIN Rx#:[id number] Intake, IV Titration 123.798 249.227 18.820 Amount Norepinephrine 32 mg In 123.798 249.227 18.820 Sodium Chloride 0.9% 218 ml @ 0.05 MCG/KG/MIN 1. 805 mls/hr IV .Q24H [facility]AYLIN Rx#:[id number] Output: Gastric Drainage 850 Urine 0 0 0 Stool 0 Other: # Voids 0 ABP, PAP, CO, CI - Last Documented Arterial Blood Pressure 94/58 - Exam General description is a middle-aged female lying in bed in no distress. Respiratory system: Unlabored breathing, decreased intensity of breath sounds, no wheeze. Heart S1, S2.Regular rate and rhythm. Abdomen soft, no tenderness. No guarding or rigidity Extremities no edema feet - Labs CBC & Chem 7: 06/09/21 07:55 06/09/21 07:55 Labs: Abnormal Lab Results - Last 24 Hours (Table) 06/08/21 06/08/21 06/09/21 Range/Units 17:33 23:32 05:19 WBC (3.8-10.6) k/uL RBC (3.80-5.40) m/uL Hgb (11.4-16.0) gm/dL Hct (34.0-46.0) % MCV (80.0-100.0) fL MCHC (31.0-37.0) g/dL RDW (11.5-15.5) % Plt Count (150-450) k/uL Neutrophils # (Manual) (1.3-7.7) k/uL Metamyelocytes # (Man) (0) k/uL Nucleated RBCs (0-0) /100 WBC Macrocytosis Sodium (137-145) mmol/L Chloride (98-107) mmol/L BUN (7-17) mg/dL Creatinine (0.52-1.04) mg/dL Glucose (74-99) mg/dL POC Glucose (mg/dL) 124 H 134 H 121 H (75-99) mg/dL Plasma Lactic Acid David (0.7-2.0) mmol/L 06/09/21 06/09/21 06/09/21 Range/Units 07:55 07:55 07:55 WBC 12.4 H (3.8-10.6) k/uL RBC 2.93 L (3.80-5.40) m/uL Hgb 9.5 L (11.4-16.0) gm/dL Hct 32.0 L (34.0-46.0) % MCV 109.3 H (80.0-100.0) fL MCHC 29.6 L (31.0-37.0) g/dL RDW 19.3 H (11.5-15.5) % Plt Count 95 L (150-450) k/uL Neutrophils # (Manual) 10.60 H (1.3-7.7) k/uL Metamyelocytes # (Man) 0.12 H (0) k/uL Nucleated RBCs 13 H (0-0) /100 WBC Macrocytosis Marked A Sodium 148 H (137-145) mmol/L Chloride 118 H (98-107) mmol/L BUN 25 H (7-17) mg/dL Creatinine 3.34 H (0.52-1.04) mg/dL Glucose 135 H (74-99) mg/dL POC Glucose (mg/dL) (75-99) mg/dL Plasma Lactic Acid David 3.7 H* (0.7-2.0) mmol/L 06/09/21 Range/Units 11:42 WBC (3.8-10.6) k/uL RBC (3.80-5.40) m/uL Hgb (11.4-16.0) gm/dL Hct (34.0-46.0) % MCV (80.0-100.0) fL MCHC (31.0-37.0) g/dL RDW (11.5-15.5) % Plt Count (150-450) k/uL Neutrophils # (Manual) (1.3-7.7) k/uL Metamyelocytes # (Man) (0) k/uL Nucleated RBCs (0-0) /100 WBC Macrocytosis Sodium (137-145) mmol/L Chloride (98-107) mmol/L BUN (7-17) mg/dL Creatinine (0.52-1.04) mg/dL Glucose (74-99) mg/dL POC Glucose (mg/dL) 121 H (75-99) mg/dL Plasma Lactic Acid David (0.7-2.0) mmol/L Microbiology - Last 24 Hours (Table) 06/03/21 11:30 Blood Culture - Final Blood No Growth after 144 hours Assessment and Plan Assessment: 1-patient with a PD catheter associated peritonitis in this patient is status post removal of the infected dialysis catheter culture positive for Enterococcus faecalis and staph epi blood culture remains to be negative patient is covered with with vancomycin pharmacy to dose duration be at least 2 weeks 2-patient with leukocytosis which is multifactorial question of aspiration pneumonitis. Blood culture has been negative, patient to continue with the Zosyn, with a possible plan for comfort/hospice care tomorrow per the nursing staff
[2021-06-09 17:57] LABS: Glucose,Whole Blood 117 mg/dL (75-99)
[2021-06-09] MEDS: ATORVASTATIN 40 MG TAB PO SCH (19:16)
[2021-06-09] MEDS: SERTRALINE 25 MG TAB PO SCH (19:17)
[2021-06-09 23:09] LABS: Glucose,Whole Blood 114 mg/dL (75-99)
[2021-06-10] MEDS: INSULIN ASPART (NovoLOG) 100 UNIT/ML VIAL SQ SCH ×2 (02:06→05:33)
[2021-06-10] MEDS: HYDROCORTISONE SUCCINATE 100 MG/2 ML VIAL IV SCH (02:11)
[2021-06-10] MEDS: DEXTROSE 5%-0.9% NACL 1,000 ML IV SCH (02:12)
[2021-06-10] MEDS: PIPERACILLIN-TAZOBACTAM 3.375 GM in SODIUM CHLORIDE 0.9% 100 ML IVPB SCH (03:57)
[2021-06-10 05:23] LABS: Glucose,Whole Blood 90 mg/dL (75-99)
[2021-06-10] MEDS: MIDODRINE 5 MG TAB PO SCH (06:46)
[2021-06-10] MEDS: LEVOTHYROXINE 112 MCG TAB PO SCH (06:46)
[2021-06-10 09:30] VITALS: TEMP 97.9
--- NOTE | 2021-06-10 10:06 | P.PN ---
Subjective Progress Note Date: 06/10/21 Principal diagnosis: Patient seen for follow-up for end-stage renal disease. There are plans for continued hospice/comfort care. Hemodialysis is currently on hold. Patient's mother is expected to arrive at around 10 AM. Patient has not been communicating much. Objective - Vital Signs Vital signs: Vital Signs Temp 97.9 F 06/10/21 08:00 Pulse 107 H 06/10/21 09:00 Resp 21 06/10/21 09:00 BP 85/64 06/10/21 09:00 Pulse Ox 98 06/10/21 09:00 Intake & Output 06/09/21 06/10/21 06/10/21 18:59 06:59 18:59 Intake Total 253.752 689.461 70 Output Total 0 0 0 Balance 253.752 689.461 70 Weight 87.3 kg Intake: IV 160 650 70 Dextrose 5%-0.9% NaCl 1, 160 650 70 000 ml @ 10 mls/hr IV . Q24H [facility] Rx#:[id number] Intake, IV Titration 93.752 39.461 Amount Norepinephrine 32 mg In 93.752 39.461 Sodium Chloride 0.9% 218 ml @ 0.05 MCG/KG/MIN 1. 805 mls/hr IV .Q24H [facility] Rx#:[id number] Output: Urine 0 0 0 Stool 0 Other: # Voids 0 ABP, PAP, CO, CI - Last Documented Arterial Blood Pressure 94/58 - Exam On examination patient is comfortable she's awake not in any acute distress. Examination of the heart S1 and S2 Examination of the lungs bilateral breath sounds are heard Abdomen is soft nontender Examination lower extremity shows edema 1+ bilaterally. [employer] exam shows patient does not communicate much. Patient continues to stare towards the right side. - Labs CBC & Chem 7: 06/09/21 07:55 06/09/21 07:55 Labs: Abnormal Lab Results - Last 24 Hours (Table) 06/09/21 06/09/21 06/09/21 Range/Units 07:55 07:55 07:55 WBC 12.4 H (3.8-10.6) k/uL RBC 2.93 L (3.80-5.40) m/uL Hgb 9.5 L (11.4-16.0) gm/dL Hct 32.0 L (34.0-46.0) % MCV 109.3 H (80.0-100.0) fL MCHC 29.6 L (31.0-37.0) g/dL RDW 19.3 H (11.5-15.5) % Plt Count 95 L (150-450) k/uL Neutrophils # (Manual) 10.60 H (1.3-7.7) k/uL Metamyelocytes # (Man) 0.12 H (0) k/uL Nucleated RBCs 13 H (0-0) /100 WBC Macrocytosis Marked A Sodium 148 H (137-145) mmol/L Chloride 118 H (98-107) mmol/L BUN 25 H (7-17) mg/dL Creatinine 3.34 H (0.52-1.04) mg/dL Glucose 135 H (74-99) mg/dL POC Glucose (mg/dL) (75-99) mg/dL Plasma Lactic Acid David 3.7 H* (0.7-2.0) mmol/L 06/09/21 06/09/21 06/09/21 Range/Units 11:42 17:55 23:07 WBC (3.8-10.6) k/uL RBC (3.80-5.40) m/uL Hgb (11.4-16.0) gm/dL Hct (34.0-46.0) % MCV (80.0-100.0) fL MCHC (31.0-37.0) g/dL RDW (11.5-15.5) % Plt Count (150-450) k/uL Neutrophils # (Manual) (1.3-7.7) k/uL Metamyelocytes # (Man) (0) k/uL Nucleated RBCs (0-0) /100 WBC Macrocytosis Sodium (137-145) mmol/L Chloride (98-107) mmol/L BUN (7-17) mg/dL Creatinine (0.52-1.04) mg/dL Glucose (74-99) mg/dL POC Glucose (mg/dL) 121 H 117 H 114 H (75-99) mg/dL Plasma Lactic Acid David (0.7-2.0) mmol/L Microbiology - Last 24 Hours (Table) 06/03/21 11:30 Blood Culture - Final Blood No Growth after 144 hours Assessment and Plan Assessment: #1 ESRD on hemodialysis. #2 septic shock from peritonitis. PD catheter has been removed. #3 volume overload #4 hypervolemic hyponatremia . Plan: Continue to hold dialysis.
[2021-06-10 10:09] VITALS: BP 88/61; PULSE 118; RESP 17
[2021-06-10] MEDS: NOREPINEPHRINE 32 MG in SODIUM CHLORIDE 0.9% 218 ML IV SCH (10:17)
[2021-06-10] MEDS ORDERED: MORPHINE SULFATE 4 MG/ML SYRINGE IV PRN (10:26)
[2021-06-10] MEDS ORDERED: MORPHINE SULFATE 2 MG/ML SYRINGE IVP ONE (10:26)
[2021-06-10] MEDS ORDERED: LORazepam 2 MG/ML INJ IV PRN (10:26)
--- NOTE | 2021-06-10 10:44 | P.PN ---
Subjective Progress Note Date: 06/10/21 Principal diagnosis: Acute peritonitis, sepsis, septic shock, acute CVA On 06/10/2021 patient seen in follow-up in the intensive care unit, she remains poorly responsive, she moans at times, however she is not following any command, she has right-sided gaze deviation, she does withdraw from pain. She does breathe spontaneously, however level of consciousness has remained quite poor. There is no purposeful response. Her CT of the head on 06/05/2021 showed a large left hemispheric subacute infarct that was increased in size compared to the previous CT a few days prior. Neurology has been closely following the case, and felt that the patient was having evolution of the stroke predominantly in the left middle cerebral artery territory. EEG showed asymmetric background, right hemisphere background slowing suggestive of encephalopathy in the left hemisphere background was showing moderate to severe slowing consistent with patient's history of stroke. There was no epileptiform discharge was seizure on the EEG. Room air pulse ox is 98%, hemodynamically she still requiring vasopressor support and remains on norepinephrine currently infusing at 0.41 mics per kilo per minute which is 35 mics per minute. She remains on D5W at a rate of 20 ML per hour, vasopressin drip has been discontinued, she has been receiving hemodialysis, her last session was on 06/07/2021 with removal of 500 mL of fluid. Generally patient appears to be fluid overloaded, she has anasar ca. No recent chest x-ray however patient does not appear to be in any respiratory distress, she has maintained stable O2 saturations on room air. She currently remains on hydrocortisone 100 mg every 8 hours, she has also been receiving midodrine, she has been on Zosyn and vancomycin for peritonitis. Her peritoneal fluid cultures were positive for enterococcus faecalis and staph epidermidis, blood cultures have shown no growth. She has had no fever or chills, her neurological condition has not shown any improvement in the last several days. Patient is a DO NOT RESUSCITATE CODE STATUS. And at this time we are told that the patient is coming in today with the intent of making the patient comfortable. Objective - Vital Signs Vital signs: Vital Signs Temp 97.9 F 06/10/21 08:00 Pulse 118 H 06/10/21 10:00 Resp 17 06/10/21 10:00 BP 88/61 06/10/21 10:00 Pulse Ox 98 06/10/21 10:00 Intake & Output 06/09/21 06/10/21 06/10/21 18:59 06:59 18:59 Intake Total 253.752 689.461 301.97 Output Total 0 0 0 Balance 253.752 689.461 301.97 Weight 87.3 kg Intake: IV 160 650 80 Dextrose 5%-0.9% NaCl 1, 160 650 80 000 ml @ 10 mls/hr IV . Q24H K[facility] Rx#:[id number] Intake, IV Titration 93.752 39.461 221.97 Amount Norepinephrine 32 mg In 93.752 39.461 221.97 Sodium Chloride 0.9% 218 ml @ 0.05 MCG/KG/MIN 1. 805 mls/hr IV .Q24H [facility] Rx#:[id number] Output: Urine 0 0 0 Stool 0 Other: # Voids 0 ABP, PAP, CO, CI - Last Documented Arterial Blood Pressure 94/58 - Exam GENERAL EXAM: Unresponsive, 56-year-old white female, laying in bed, moans and groans a response to movement, however does not follow any purposeful command, comfortable in no apparent distress. HEAD: Normocephalic/atraumatic. EYES: Normal reaction of pupils, equal size. Conjunctiva pink, sclera white. Patient has a right-sided gaze deviation and her gaze falls to the opposite side of turning NOSE: Clear with pink turbinates. THROAT: No erythema or exudates. NECK: No masses, no JVD, no thyroid enlargement, no adenopathy. CHEST: No chest wall deformity. Symmetrical expansion. LUNGS: Equal air entry with no crackles, wheeze, rhonchi or dullness. CVS: Regular rate and rhythm, normal S1 and S2, no gallops, no murmurs, no rubs ABDOMEN: Soft, nontender. No hepatosplenomegaly, normal bowel sounds, no gu arding or rigidity. Peritoneal hemodialysis catheter has been removed EXTREMITIES: No clubbing, significant generalized anasarca no cyanosis, 2+ pulses and upper and lower extremities. Right groin temporary hemodialysis catheter is in place, left groin triple lumen catheter in place MUSCULOSKELETAL: Muscle strength and tone normal. SPINE: No scoliosis or deformity SKIN: No rashes CENTRAL NERVOUS SYSTEM: Unresponsive No focal deficits, tone is normal in all 4 extremities. - Labs CBC & Chem 7: 06/09/21 07:55 06/09/21 07:55 Labs: Abnormal Lab Results - Last 24 Hours (Table) 06/09/21 06/09/21 06/09/21 Range/Units 07:55 07:55 07:55 WBC 12.4 H (3.8-10.6) k/uL RBC 2.93 L (3.80-5.40) m/uL Hgb 9.5 L (11.4-16.0) gm/dL Hct 32.0 L (34.0-46.0) % MCV 109.3 H (80.0-100.0) fL MCHC 29.6 L (31.0-37.0) g/dL RDW 19.3 H (11.5-15.5) % Plt Count 95 L (150-450) k/uL Neutrophils # (Manual) 10.60 H (1.3-7.7) k/uL Metamyelocytes # (Man) 0.12 H (0) k/uL Nucleated RBCs 13 H (0-0) /100 WBC Macrocytosis Marked A Sodium 148 H (137-145) mmol/L Chloride 118 H (98-107) mmol/L BUN 25 H (7-17) mg/dL Creatinine 3.34 H (0.52-1.04) mg/dL Glucose 135 H (74-99) mg/dL POC Glucose (mg/dL) (75-99) mg/dL Plasma Lactic Acid David 3.7 H* (0.7-2.0) mmol/L 06/09/21 06/09/21 06/09/21 Range/Units 11:42 17:55 23:07 WBC (3.8-10.6) k/uL RBC (3.80-5.40) m/uL Hgb (11.4-16.0) gm/dL Hct (34.0-46.0) % MCV (80.0-100.0) fL MCHC (31.0-37.0) g/dL RDW (11.5-15.5) % Plt Count (150-450) k/uL Neutrophils # (Manual) (1.3-7.7) k/uL Metamyelocytes # (Man) (0) k/uL Nucleated RBCs (0-0) /100 WBC Macrocytosis Sodium (137-145) mmol/L Chloride (98-107) mmol/L BUN (7-17) mg/dL Creatinine (0.52-1.04) mg/dL Glucose (74-99) mg/dL POC Glucose (mg/dL) 121 H 117 H 114 H (75-99) mg/dL Plasma Lactic Acid David (0.7-2.0) mmol/L Microbiology - Last 24 Hours (Table) 06/03/21 11:30 Blood Culture - Final Blood No Growth after 144 hours Assessment and Plan Plan: Assessment: #1. Hypotension related to sepsis and septic shock related to peritonitis and peritoneal dialysis. Peritoneal fluid cultures were positive for Enterococcus faecalis and staph epidermidis, patient is currently on Zosyn and vancomycin. Peritoneal dialysis has been removed and patient is currently on hemodialysis via right groin temporary dialysis cath #2. Acute CVA involving the left middle cerebral artery territory #3. End-stage renal disease was on peritoneal dialysis in the past, patient is currently on hemodialysis #4. Benign essential hypertension #5. History of hypothyroidism #6. Dyslipidemia #7. History of gout #8. Chronic anemia of chronic disease #9. Severe dehydration #10. Electrolyte imbalance, resolving Plan: Neurologically patient has not had any improvement in her level of consciousness or purposeful activity Continue supportive treatment Still requiring vasopressor support Off vasopressin, continues on norepinephrine No fever or chills CODE STATUS is DO NOT RESUSCITATE In view of no improvement neurologically the patient has made a decision to make the patient DO NOT RESUSCITATE, The family is expected to come in today and they are intending on making the patient comfortable at this point Start with comfort care protocol when the family is here and ready to proceed I performed a history & physical examination of the patient and discussed their management with my nurse practitioner, My Arreola. I reviewed the nurse practitioner's note and agree with the documented findings and plan of care. Lung sounds are positive for dim breath sounds throughout the lung oakley. The findings and the impression was discussed with the patient. I attest to the documentation by the nurse practitioner. Time with Patient: Greater than 30
[2021-06-10] MEDS: MORPHINE SULFATE (100 MG/2 ML) 100 MG in SODIUM CHLORIDE 0.9% 100 ML IV SCH ×2 (10:58→13:54)
[2021-06-10] MEDS ORDERED: ATROPINE OPHTH SOLN 1% 5ML BTL SUBLINGUAL PRN (11:10)
--- NOTE | 2021-06-10 12:21 | P.PN ---
Progress Note - Text Progress Note Date: 06/10/21 The patient remains in the ICU. Patient's family has decided to make the patient comfort care. Family is at the bedside. The impression and plan of care has been dictated as directed. Dr. Pedro I performed a history and examination of this patient, discussed the same with the dictator. I agree with the dictator's note ,documented as a scribe. Any additional findings or plans will be noted.
[2021-06-10 14:39] VITALS: BMI 37.5
--- NOTE | 2021-06-11 07:32 | P.DS ---
Providers Date of admission: 05/25/21 17:29 Expected date of discharge: 06/10/21 Attending physician: Jagdeep Christina Consults: 05/25/21 17:20 Consult Physician Routine Consulting Provider: Manjeet Navarro Consult Reason/Comments: permacath placement Do you want consulting provider notified?: Yes 05/25/21 17:21 Consult Physician Urgent Consulting Provider: Bernarda Castellanos Consult Reason/Comments: crf Do you want consulting provider notified?: Yes 05/28/21 11:58 Consult Physician Routine Consulting Provider: Ernst Randhawa Consult Reason/Comments: peritoneal fluid infection Do you want consulting provider notified?: Yes 05/29/21 08:49 Consult Physician Urgent Consulting Provider: Leno Nielsen Consult Reason/Comments: icu management Do you want consulting provider notified?: Already Contacted 05/30/21 10:59 Consult Physician Urgent Consulting Provider: Toni Somers Consult Reason/Comments: removal of peritoneal dialysis catheter Do you want consulting provider notified?: Yes 06/01/21 23:34 Consult Physician Urgent Consulting Provider: Isabell Carrion Consult Reason/Comments: AMS, possible CVA Do you want consulting provider notified?: Yes, Notify in am 06/03/21 01:22 Consult Physician Routine Consulting Provider: Zhang Francis Consult Reason/Comments: Tachycardia Do you want consulting provider notified?: Yes, Notify in am 06/03/21 07:13 Consult Physician Urgent Consulting Provider: Jeremias Hansen Consult Reason/Comments: Patient needs IV access Do you want consulting provider notified?: Already Contacted Primary care physician: Bernardo Cooper MD Hospital Course: HISTORY OF PRESENT ILLNESS 56-year-old female with developmental delay who had history of end-stage renal disease on peritoneal dialysis, history of hypertension, hyperlipidemia, hypothyroidism who had an infected left knee late last year had surgery and ended up going to rehab for long time was home for the last few weeks when patient developed to have significant change mental status with decreased oral intake with worsening symptoms overall for the last few days have been having fatigue tiredness not been eating or drinking no now moving. Also her dialysis has been getting quite bit worse patient apparently will be switch to hemodialysis was told need workup for fistula graft the left arm for possible hemodialysis. Family ended up bringing her to demurs department at [facility] where was seen and evaluated surprisingly found to have mildly elevated troponin with severe electrolyte imbalance with potassium of 2.1 only. Chest x-ray did not show any infection just atelectasis, COVID-19 was negative at the time. Patient was started on gentle hydration will be admitted to the hospital be seen nephrology and vascular, CK with troponin 3 will be done and patient will be seen cardiology further intervention after doing an echocardiogram will depend on the result. 05/26: Patient states that she is feeling better. No complaints or concerns. Plan is for patient to change from peritoneal dialysis to hemodialysis. Consult for nephrology and vascular surgery in place. Patient remains afebrile, heart rate 108, respirations 18, blood pressure 105/71 pulse ox 90% on room air. WC 10.8, hemoglobin 11.3, sodium 133, potassium 3.1, BUN 44, creatinine 5.15. 05/27, patient is currently nothing by mouth, for planned Port-A-Cath placement today, for the transfusion hemodialysis treatment, from a peritoneal dialysis regimen. Patient has dry mouth, no nausea no vomiting, no chest pain no shortness of breath, vitals are stable, 118/64, no fever, T-max of 97.0, heart rate is in the 70s. Pulse ox room air 98% 05/28: Patient is seen today on the cardiac stepdown unit. She is receiving intraperitoneal antibiotics. Patient is receiving regular CAPD managed by nephrology. Nephrology is planning on 2-3 weeks of antibiotic therapy. Tonsils been added for Dr. Doran 8. 05/29: Throughout the night, blood pressure was low down to 68/50, CAPD was held, patient received 500 mL bolus last evening a repeat this morning and we are ordering another 250 ML's now. Blood pressure has recovered somewhat at 90/60. Cortisol level was ordered and patient will be started on hydrocortisone 100 mg IV every 8 hours. Ensure clear and beneprotein added. Sodium was 132, potassium 3.0 will be replaced, BUN 33 creatinine 4.34, blood sugar 107. The plan to transfer patient to ICU but at this point, hold any transfer and continue current treatment. Dr. Randhawa has seen and reviewed patient, blood cultures and inflammatory markers pending. 05/30: Patient is scheduled to have CAPD catheter removed with Dr. Somers and have dialysis by Dr. Navarro. Blood pressures are improved. Hydrocortisone discontinued as cortisol level was at 30. Blood pressure 103/72, afebrile, heart rate in the 60s, pulse ox 100% on room air. 05/31: Patient had CAPD catheter removed and she is scheduled for dialysis catheter placement today with Dr. Navarro. Patient will be continued on hemodialysis with plan for subacute rehab for discharge once chair time has been obtained for dialysis. Patient is afebrile, heart rate 77, blood pressure 95/55, pulse ox 98% on room air. 06/01: Right common femoral approach for hemodialysis access, was placed on 05/[address] Navarro, antibiotic needs to be finalized by Dr. Randhawa, for peritonitis caused by the peritoneal catheter which has been discontinued also on 05/31 2021. Anticipate discharge to subacute rehab on Thursday, brother is at bedside today, updated regarding treatment plan, no fever no chills, patient has been drowsy today, most likely secondary to pain meds, or lack of sleep. Feedings are minimal today, and is being fed by the brother without any difficulties. No fevers, no aspiration 06/02: patient is seen with the family members today, patient's moaning groaning, starting at9:30 at night, and was noted to have changes in mentationpatient cannot verbally verbalize what is going on last night, do not improve with small dose of Dilaudid 0.5 mg to control the femoral pain, CAT scan of the brain was ordered, 9:33 PM, age indeterminate right frontal lobe CVA with no comparison previous CT, there is a focus of patricio white matter differentiation loss within the right frontal lobe, no interparenchymal hemorrhage or mass effect,, concentration for MRI if clinically warranted, 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 Carrion neurology, for whichanother stat CT was placed,aunt 10 AM, there is an area of diminished attenuation with sulcal effacement involving the left frontal parietal lobe suggestive of acute ischemia, diminished attenuation in the high left parietal region, also suspicious for recent ischemia,code stroke was calledpatient is placed on aspirin 81 mg daily, and Plavix 75 mg daily. However patient cannot take any oral medications at this time, we started aspirin suppository, 1025 mg, until oral route is established. Discussed this with the mother, there was no plans for a PEG feeding at one time she had similar problems for which she has not eaten for one month, and they have used and a NG-tube or dophoff feeding in past it looks like the femoral cath is only a temporary way of providing dialysis, and possibly would return to peritoneal dialysis once cleared of infection.when seen today, patient cannot follow commands, can move ice, small facial droop right side,and not follow ve rbal commands, painstimuli was given to elicit a motor response, withdraws on the left, no withdrawal of arms on the right side. There is no localization of painful stimuli, and left lower extremity, no movement or evidence of sensation on the right side.blood cultures, no growth 96 hours,IV access to right femoral catheter, blood pressure 97/62 to 117/73. 06/03: Patient was transferred into the intensive care unit due to hypotension and tachycardia status post 1.5 L fluid bolus with plan to start levophed. The line has been placed by pulmonary medicine. She has been seen by cardiology and echocardiogram was ordered. No sign of atrial fibrillation. Nephrology is planning for hemodialysis today. Ankle myosin level XLIII.3. Cortisol level XXXVI and patient has been started on IV hydrocortisone. She remains unresponsive since Thursday evening and followed by nephrology left cerebral artery infarct. Echocardiogram shows EF 55-60% with borderline concentric left ventricular hypertrophy, mild aortic valve sclerosis, mild mitral calcification. Carotid ultrasound reveals no significant stenosis in the bilateral ICAs. Chest x-ray reveals right-sided catheter. No acute pulmonary process. 06/04: Patient remains in the intensive care unit. She is on levo fed which is trying to be weaned down. She is NG tube in place to start tube feedings. She received hemodialysis yesterday and none today. Patient is followed by neurology and is scheduled for EEG today. Patient is followed by multiple consultants. Vascular will be placing a PICC line. Patient is followed by pbx technician, Dr. Somers , cardiology, as well. Patient is continued on IV antibiotics in the form of Zosyn and vancomycin managed by Dr. Randhawa. 06/05: Patient remains in the intensive care unit. She is receiving hemodialysis today and is on norepinephrine. Patient is unresponsive, unable to take any oral intake. Repeat blood work reveals WBC 24.7, hemoglobin 8.3, platelet count 75. Potassium 3.4, creatinine 2.96. Blood sugars are running between 92 and 172. Vancomycin 22.4. C-reactive protein 3.1. Phosphorus 2.7, magnesium 1.9. Mom is at bedside and updated regarding condition and prognosis. She relates that she wishes to have everything done for her daughter. Code status clarified to full code. General surgery is following on an as-needed basis. Vascular is following and tunneled PICC line catheter placement is canceled due to hypotension. Patient is also followed by nephrology, neurology, pbx technician. Solu-Cortef decrease to 50 mg every 8 hours. Prognosis is guarded. 06/06: Patient remains unresponsive. She is had repeat CAT scan yesterday reported large left hemispheric subacute infarct which shows increasing size compared to previous CAT scan and this is felt to be evolution of the patient's stroke predominantly in the left MCA territory. Patient is followed closely by neurology. Cardiology is following and DANIELLE is not recommended due to patient's current clinical status and would not change her clinical course. Patient is currently on aspirin 300 mg rectal, Lipitor 40 mg, Plavix 75 mg daily. She is followed by nephrology and continued on dialysis. Patient remains on norepinephrine and attempting to wean off. Patient's mother is at the bedside and discussed results of CAT scan, patient's current condition and prognosis. At this time, she may wish to pursue PEG tube which has been cleared for placement by Dr. Randhawa. Patient would like to discuss with 2 daughters. 06/07: Patient remains in the intensive care unit. She has been afebrile, heart rate 101, blood pressure 110/75, pulse ox 99% on room air. Patient remains on norepinephrine as well as midodrine. Repeat blood work reveals WBC 20.1, hemoglobin 9.3, sodium 149. Chloride 120. Creatinine 2.99. ALT 47, alkaline phosphatase 232. She did open her eyes for her mother today. She continues to moan. Otherwise no significant response. Mother states that the patient's brother is coming from [place] to see her tomorrow. EEG completed yesterday revealed abnormal study consistent with history of stroke. No epileptiform discharge or seizure. EEG is somewhat better when compared to 06/04 EEG. 02/06 and patient examined bedside. Appears to open her eyes spontaneously. She makes no verbal connection just moans. Weight is stable continues to be tachycardic blood pressure labile with systolic ranging from 82-99 and diastolic ranging from 40-60. Labs reviewed. Cortisol was normal patient continues to hydrocortisone 50 every 8 hours pending me to treat and 10 3 times a day. 2. Patient's family's is inclining towards hospice since patient has not made any progress. He patient's brother will discuss with family before proceeding towards hospice 06/09 patient examined bedside resting comfortably in bed. Multiple: Physician with the family has been made with the plan to switch to hospice care in the next 24-48 hours. Patient is not making any purposeful movement. She does open her eyes intermittently to command. Nephrology has spoke to the family about stopping dialysis and weaning off pressors. Patient will be probably be switched to hospice but tomorrow 06/10: Multiple family members are at bedside and the decision has been made to make patient comfort care. She is off levo fed and has been started on morphine. Family has spoken to hospice but does not want to institute hospice at this point. Anticipate patient will pass today. A on 06/10. Please see nursing Dr. jeffers for details. DISCHARGE DIAGNOSES 1. Metabolic encephalopathy secondary to PD catheter-associated peritonitis. 2. 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 Elevated troponin and possible non-ST HI ruled out by cardiology. Septic shock requiring vasopressor. Hypothyroidism Hyperlipidemia Chronic gout Electrolyte imbalance with severe hypokalemia Chronic anemia of chronic renal disease Infected left knee post surgery patient left knee is non-ambulatory. status post antibiotic spacer in place. Severe dehydration Moderate protein calorie malnutrition. End-stage renal disease, previously on CAPD, patient transitioned to hemodialysis. COVID-19 testing was negative. PLAN COMFORT CARE Impression and plan of care have been directed as dictated by the signing physician. Kianna Don nurse practitioner acting as scribe for signing physician. Patient Condition at Discharge: Undetermined Plan - Discharge Summary Discharge Rx Participant: No New Discharge Prescriptions: No Action Levothyroxine Sodium [Synthroid] 112 mcg PO AC-BRKFST Atorvastatin [Lipitor] 10 mg PO HS Sevelamer [Renvela] 800 mg PO AC-TID Magnesium Oxide [Evans] 500 mg PO DAILY Famotidine [Pepcid] 20 mg PO DAILY Gentamicin Sulfate [Gentamicin Sulfate 0.1%] 1 applic TOPICAL DAILY PRN PRN Reason: around dialysis catheter allopurinoL [Zyloprim] 100 mg PO DAILY Epoetin Felipe [Epogen] 20,000 unit SQ Q7D Danna-Tino 1 tab PO DAILY Midodrine HCl [ProAmatine] 10 mg PO AC-TID Potassium Chloride ER [K-Dur 20] 20 meq PO DAILY Ondansetron Odt [Zofran Odt] 8 mg PO Q8H PRN PRN Reason: Nausea Sertraline [Zoloft] 25 mg PO HS Discharge Medication List Levothyroxine Sodium [Synthroid] 112 mcg PO AC-BRKFST 01/10/20 [History] allopurinoL [Zyloprim] 100 mg PO DAILY 10/16/20 [History] Atorvastatin [Lipitor] 10 mg PO HS 10/31/20 [History] Sevelamer [Renvela] 800 mg PO AC-TID 01/11/21 [History] Epoetin Felipe [Epogen] 20,000 unit SQ Q7D 05/25/21 [History] Famotidine [Pepcid] 20 mg PO DAILY 05/25/21 [History] Gentamicin Sulfate [Gentamicin Sulfate 0.1%] 1 applic TOPICAL DAILY PRN 05/25/21 [History] Magnesium Oxide [Evans] 500 mg PO DAILY 05/25/21 [History] Midodrine HCl [ProAmatine] 10 mg PO AC-TID 05/25/21 [History] Ondansetron Odt [Zofran Odt] 8 mg PO Q8H PRN 05/25/21 [History] Potassium Chloride ER [K-Dur 20] 20 meq PO DAILY 05/25/21 [History] Danna-Tino 1 tab PO DAILY 05/25/21 [History] Sertraline [Zoloft] 25 mg PO HS 05/25/21 [History] Follow up Appointment(s)/Referral(s): [facility] [NON-STAFF] - [place],[facility] [NON-STAFF] - None,[facility] [REFERRING] - 1-2 days Discharge Disposition: - Preliminary Cause of Preliminary Cause of : Acute right frontal parietal CVA with right facial droop, right hemiplegia,
== END 2021-06-10 17:45 | disposition expired | DRG 907 ==
LOC: EC 14:43 → 3SCARD 17:29 → 2SICU 06-03 10:01
PROVIDERS: ADMIT Internal Medicine Geriatric Medicine; ATTEND Internal Medicine Geriatric Medicine
PROC: 3E1M39Z Irrigation of Peritoneal Cavity using Dialysate, Percutaneous Approach (ICD-10-PCS; 2021-05-25)
PROC: 0WPG03Z Removal of Infusion Device from Peritoneal Cavity, Open Approach (ICD-10-PCS; 2021-05-30)
PROC: 02HV33Z Insertion of Infusion Device into Superior Vena Cava, Percutaneous Approach (ICD-10-PCS; 2021-05-31)
PROC: B5191ZZ Fluoroscopy of Inferior Vena Cava using Low Osmolar Contrast (ICD-10-PCS; 2021-05-31)
PROC: 3E033XZ Introduction of Vasopressor into Peripheral Vein, Percutaneous Approach (ICD-10-PCS; 2021-05-31)
PROC: 03HY32Z Insertion of Monitoring Device into Upper Artery, Percutaneous Approach (ICD-10-PCS; principal; 2021-06-03)
PROC: 4A133B1 Monitoring of Arterial Pressure, Peripheral, Percutaneous Approach (ICD-10-PCS; 2021-06-03)
PROC: 4A133J1 Monitoring of Arterial Pulse, Peripheral, Percutaneous Approach (ICD-10-PCS; 2021-06-03)
PROC: 06HN33Z Insertion of Infusion Device into Left Femoral Vein, Percutaneous Approach (ICD-10-PCS; 2021-06-03)
DX: T85.71XA Infection and inflammatory reaction due to peritoneal dialysis catheter, initial encounter (principal); I63.412 Cerebral infarction due to embolism of left middle cerebral artery; A41.81 Sepsis due to Enterococcus; G93.41 Metabolic encephalopathy; K65.0 Generalized (acute) peritonitis; N18.6 End stage renal disease; R65.21 Severe sepsis with septic shock; E44.0 Moderate protein-calorie malnutrition; E87.1 Hypo-osmolality and hyponatremia; E87.2 Acidosis; G81.91 Hemiplegia, unspecified affecting right dominant side; N17.9 Acute kidney failure, unspecified; I13.11 Hypertensive heart and chronic kidney disease without heart failure, with stage 5 chronic kidney disease, or end stage renal disease; R47.01 Aphasia; Z51.5 Encounter for palliative care; T84.54XA Infection and inflammatory reaction due to internal left knee prosthesis, initial encounter; R41.82 Altered mental status, unspecified; I95.9 Hypotension, unspecified; D63.1 Anemia in chronic kidney disease; Z66 Do not resuscitate; D69.6 Thrombocytopenia, unspecified; E03.9 Hypothyroidism, unspecified; Z20.822 Contact with and (suspected) exposure to COVID-19; Z68.37 Body mass index [BMI] 37.0-37.9, adult; E78.5 Hyperlipidemia, unspecified; E86.0 Dehydration; E86.1 Hypovolemia; E87.6 Hypokalemia; I25.10 Atherosclerotic heart disease of native coronary artery without angina pectoris; I35.8 Other nonrheumatic aortic valve disorders; I45.10 Unspecified right bundle-branch block; I95.89 Other hypotension; I70.8 Atherosclerosis of other arteries; K21.9 Gastro-esophageal reflux disease without esophagitis; M1A.9XX0 Chronic gout, unspecified, without tophus (tophi); M43.6 Torticollis; M89.9 Disorder of bone, unspecified; R29.810 Facial weakness; R56.9 Unspecified convulsions; R57.1 Hypovolemic shock; R77.8 Other specified abnormalities of plasma proteins; Y83.8 Other surgical procedures as the cause of abnormal reaction of the patient, or of later complication, without mention of misadventure at the time of the procedure; Z79.82 Long term (current) use of aspirin; Z79.02 Long term (current) use of antithrombotics/antiplatelets; Z99.2 Dependence on renal dialysis; Z79.890 Hormone replacement therapy; Z79.899 Other long term (current) drug therapy; Z80.0 Family history of malignant neoplasm of digestive organs; Z82.49 Family history of ischemic heart disease and other diseases of the circulatory system; Z83.3 Family history of diabetes mellitus; Z96.652 Presence of left artificial knee joint; R62.50 Unspecified lack of expected normal physiological development in childhood
CPT/HCPCS: 36415; 36558; 36600; 70450; 71045; 76937; 77001; 80048; 80053; 80061; 80202; 82140; 82533; 82565; 82728; 82805; 83036; 83540; 83550; 83605; 83735; 84100; 84132; 84145; 84484; 85025; 85027; 85610; 85730; 86140; 86704; 86706; 87040; 87070; 87077; 87186; 87205; 87340; 87635; 89050; 90935; 93005; 93306; 93880; 94760; 95816; 99285